=== PATIENT | female | born 1945 | race Caucasian/White ===

== ENCOUNTER 2016-09-01 09:07 | Emergency (ER) | payer OTHER ==
[~2016-09-01] VITALS: Ht 167.6 cm; Wt 73.0 kg
[~2016-09-01 09:07] MED LIST: ALPR-411 PO; INSDGI SC; MOME100A INH; NVLGI SC; OMEP20CA9 PO; salonpas TOP
[2016-09-01 09:09] VITALS: TEMP 36.6; Ht 167.6 cm; Wt 73.0 kg
[2016-09-01] MEDS ORDERED: SIMV40TA2 PO (09:39)
[2016-09-01] MEDS ORDERED: ESCI10TA17 PO (09:40)
[2016-09-01] MEDS ORDERED: ACET-1256 PO (09:42)
[2016-09-01] MEDS ORDERED: NVLGIPEN SC (09:46)
[2016-09-01] MEDS ORDERED: INSDGIPEN SC ×2 (09:46)
--- NOTE | 2016-09-01 10:21 | DIAGNOSTIC IMAGING REPORT ---
RIGHT ANKLE 3 VIEWS CLINICAL HISTORY: Right ankle pain. FINDINGS: 3 views of the right ankle are obtained. No prior studies are available for comparison at the time of dictation. The skeletal structures are osteopenic. No fracture is seen. The ankle mortise is intact. There are large dorsal and plantar calcaneal enthesophytes. No joint effusion is identified. There is no soft tissue swelling. Mild nonspecific edema is suggested within Kager's fat pad. IMPRESSION: 1. Osteopenia with no acute bony or malleable identified. 2. Nonspecific edema is suggested within Kager's fat pad. Clinical correlation will be required Electronically signed by: Piyush Fox M.D. 09/01/2016 10:20 AM Dictated Date/Time: 09/01/2016 10:18 AM
--- NOTE | 2016-09-01 10:24 | DIAGNOSTIC IMAGING REPORT ---
RIGHT FOOT MIN 3 VIEWS ROUTINE CLINICAL HISTORY: right lat foot and ankle pain Right pain COMPARISON: None. DISCUSSION: The bones and joint spaces appear intact. There is no evidence of fracture, dislocation or bony disease. Mild degenerative change of the articular services. Small heel spur. IMPRESSION: No acute process. Mild degenerative change. Small heel spur. Electronically signed by: Jamison aVlencia M.D. 09/01/2016 10:23 AM Dictated Date/Time: 09/01/2016 10:22 AM
[2016-09-01 11:25] VITALS: BP 154/77; PULSE 71; O2SAT 97
--- NOTE | 2016-09-01 18:31 | EMERGENCY ROOM VISIT NOTE ---
History Report prepared by Brandon: Barbara Romeo Under the Supervision of: Dr. Chepe Hutchins D.O. First contact with patient: 09:18 Chief Complaint: FOOT PAIN Stated Complaint: RIGHT OUTER FOOT/POSSIBLE FRACTURE History of Present Illness The patient is a 70 year old female who presents to the Emergency Room with complaints of persistent right foot pain that began last Thursday. She currently rates her discomfort as a 6/10 in severity. The patient states that last Thursday she was shoveling snow when she slipped and fell backwards onto her right side. She states that the her foot hurts on the outside of her ankle. The patient denies hitting or head or any loss of consciousness. She states that she has a large bruise to her right hip from the fall, but denies any pain to the area. Source of History: patient Onset: last Thursday Position: foot (right) Symptom Intensity: 6/10 Timing: other (persistent) Associated Symptoms: No LOC Note: Associated Symptoms: fall, bruise to right hip. Review of Systems See HPI for pertinent positives & negatives. A total of 10 systems reviewed and were otherwise negative. Past Medical & Surgical Medical Problems: (1) Diabetes (2) PNA (pneumonia) Family History Diabetes mellitus FH: gallbladder disease FH: heart disease FH: lung disease FHx: cancer Hypertension Social History Smoking Status: Current Every Day Smoker Alcohol Use: none Drug Use: none Marital Status: Housing Status: lives with significant other Occupation Status: retired Current/Historical Medications Scheduled Acetaminophen (Tylenol), 500 MG PO DAILY Escitalopram (Lexapro), 10 MG PO QAM Insulin Aspart (Novolog Flexpen), 5 SC DAILY Insulin Glargine (Lantus Solostar), 10 SC QAM Insulin Glargine (Lantus Solostar), 20 SC QPM Mometasone Furoate-Formoterol (Dulera 100/5 Mcg), 2 PUFFS INH BID Omeprazole (Prilosec), 1 CAP PO DAILY Simvastatin (Zocor), 40 MG PO DAILY Scheduled PRN Alprazolam (Xanax), 0.25 MG PO HS PRN for Anxiety/Agitation Allergies Coded Allergies: No Known Allergies (Verified , 09/01/16) Physical Exam Vital Signs Date Time Temp Pulse Resp B/P Pulse Ox O2 Delivery O2 Flow Rate FiO2 09/01/16 11:25 71 20 154/77 97 09/01/16 09:09 36.6 70 18 173/70 99 Room Air Physical Exam GENERAL: Sitting up in wheelchair, alert, well appearing, well nourished, no distress, non-toxic HEAD: Normocephalic, atraumatic. EYE EXAM: normal conjunctiva, PERRL and EOM's grossly intact OROPHARYNX: no exudate, no erythema, lips, buccal mucosa, and tongue normal and mucous membranes are moist NECK: supple, no nuchal rigidity, no adenopathy, non-tender LUNGS: Clear to auscultation. Normal chest wall mechanics HEART: no murmurs, S1 normal and S2 normal ABDOMEN: abdomen soft, non-tender, normo-active bowel sounds, no masses, no rebound or guarding. UPPER EXTREMITIES: upper extremities are grossly normal. LOWER EXTREMITIES: Right lower extremity bruising on right lateral malleolus with minimal tenderness with bruising and mild swelling through base of 5th metatarsal distally and tracking into the 4th metatarsal. DP 2/4. Gross sensations are intact and skin is intact. Achilles intact, able to invert and milad without difficulty. NEURO EXAM: Normal sensorium. Medical Decision & Procedures ER Provider Diagnostic Interpretation: Xray results per the radiologist and my interpretation. Other results have been interpreted by the radiologist and reviewed by me. RIGHT FOOT MIN 3 VIEWS ROUTINE CLINICAL HISTORY: right lat foot and ankle pain Right pain COMPARISON: None. DISCUSSION: The bones and joint spaces appear intact. There is no evidence of fracture, dislocation or bony disease. Mild degenerative change of the articular services. Small heel spur. IMPRESSION: No acute process. Mild degenerative change. Small heel spur. Electronically signed by: Jamison Valencia M.D. 09/01/2016 10:23 AM Dictated Date/Time: 09/01/2016 10:22 AM RIGHT ANKLE 3 VIEWS CLINICAL HISTORY: Right ankle pain. FINDINGS: 3 views of the right ankle are obtained. No prior studies are available for comparison at the time of dictation. The skeletal structures are osteopenic. No fracture is seen. The ankle mortise is intact. There are large dorsal and plantar calcaneal enthesophytes. No joint effusion is identified. There is no soft tissue swelling. Mild nonspecific edema is suggested within Kager's fat pad. IMPRESSION: 1. Osteopenia with no acute bony or malleable identified. 2. Nonspecific edema is suggested within Kager's fat pad. Clinical correlation will be required Electronically signed by: Piyush Fox M.D. 09/01/2016 10:20 AM Dictated Date/Time: 09/01/2016 10:18 AM ED Course ED COURSE: Vital signs were reviewed and showed hypertensive The patients medical record was reviewed The above diagnostic studies were performed and reviewed. ED treatments and interventions as stated above. 0923: The patient was evaluated in room A3. A complete history and physical examination was performed. 1100: Upon reevaluation, the patient is resting comfortably.I discussed my findings with the patient and she understands and agrees with the treatment plan. Based on the patients age, coexisting illnesses, exam and lab findings the decision to treat as an outpatient was made. The patient remained stable while under my care. The patient appeared well at the time of discharge. Medical Decision Differential diagnoses include major intracranial, cervical, spinal, thoracic, abdominal, pelvic and neurologic injury. Fracture, contusion, sprain, strain, laceration, abrasions included as well. Patient is a 70-year-old female who presents the ER for right ankle pain. It's on the lateral aspect and tracks down to the base of her foot. She is been walking on this for the past several days. This occurred about a week ago. She is able to invert knee. And Achilles is intact. Gross sensation is intact. X-ray show no acute fractures. Patient family were updated at bedside per she is placed in air splint discharged follow-up with PCP in next 3-5 days if she continues to have pain. Motrin Tylenol as needed for pain. Discussed with Pt concerning signs and symptoms to watch out for. Pt was instructed to follow up with their PCP and discussed with the patient their option to return to the ED at anytime for persistent or worsening symptoms. The appropriate anticipatory guidance and out-patient management, including indications for return to the emergency department, were explained at length to the patient and understood. Impression Primary Impression: Ankle pain Scribe Attestation The scribe's documentation has been prepared under my direction and personally reviewed by me in its entirety. I confirm that the note above accurately reflects all work, treatment, procedures, and medical decision making performed by me. Departure Information Dispostion Home / Self-Care Referrals Sanchez Barroso M.D. (PCP) Forms HOME CARE DOCUMENTATION FORM, IMPORTANT VISIT INFORMATION Patient Instructions Ankle Sprain, My [facility] Additional Instructions Please follow up with your primary care doctor with in the next 24 hours. Any worsening of your symptoms, please return to the ED immediately. This includes worsening pain, increased swelling, weakness or numbness in your leg, or any other concerning signs or symptoms from your standpoint. If he continues to have pain for the next 3-5 days she will need repeat x-rays. Problem Qualifiers Primary Impression: Ankle pain Laterality: unspecified laterality Chronicity: acute Qualified Codes: M25.579 - Pain in unspecified ankle and joints of unspecified foot
[2016-11-23] MEDS ORDERED: PLV75 PO (13:38)
[2016-11-23] MEDS ORDERED: SPRIN INH (13:38)
[2016-11-23] MEDS ORDERED: ASPEC81 PO (13:38)
[2016-11-23] MEDS ORDERED: LPR25 PO (13:38)
[2016-11-23] MEDS ORDERED: SODI650T9 PO (13:38)
[2016-11-23] MEDS ORDERED: FURO-85 PO (13:38)
[2016-11-23] MEDS ORDERED: LVQ500 PO (13:38)
[2016-11-23] MEDS ORDERED: LPT40 PO (13:38)
[2016-11-23] MEDS ORDERED: NTRGSL4 SL (13:49)
[2017-02-19] MEDS ORDERED: PRLSR20 PO (07:17)
[2017-02-19] MEDS ORDERED: ATOR-24 PO (07:17)
[2017-02-19] MEDS ORDERED: POTA20TA16 PO (07:17)
[2017-02-19] MEDS ORDERED: GABA-113 PO (07:17)
[2017-02-19] MEDS ORDERED: FERR18TA PO (07:17)
[2017-02-19] MEDS ORDERED: WARF5TAB7 PO (07:17)
[2017-02-19] MEDS ORDERED: FRS/40 PO ×2 (07:17→07:52)
[2017-03-12] MEDS ORDERED: FURO-85 PO (06:51)
[2017-03-12] MEDS ORDERED: CRD200 PO (06:51)
[2017-03-12] MEDS ORDERED: INSU1INJ2 (06:51)
[2017-03-12] MEDS ORDERED: PLAVIX75 PO (06:51)
[2017-03-12] MEDS ORDERED: MOME100A INH (06:51)
[2017-03-12] MEDS ORDERED: METO50TA16 PO (06:51)
== END 2016-09-01 11:32 | disposition home or self-care (01) ==
LOC: C.EDB 09:09 → C.EDA 11:32
DX: M25.571 Pain in right ankle and joints of right foot (principal); E11.9 Type 2 diabetes mellitus without complications; F17.200 Nicotine dependence, unspecified, uncomplicated; Z79.899 Other long term (current) drug therapy; Z79.4 Long term (current) use of insulin; Z83.3 Family history of diabetes mellitus; Z82.49 Family history of ischemic heart disease and other diseases of the circulatory system; Z83.79 Family history of other diseases of the digestive system; W00.0XXA Fall on same level due to ice and snow, initial encounter; Y93.H1 Activity, digging, shoveling and raking; Y99.8 Other external cause status

== ENCOUNTER 2016-11-17 16:44 | Inpatient (IN) | payer OTHER ==
[~2016-11-17] VITALS: Ht 167.6 cm; Wt 74.2 kg
[2016-11-17] VITALS (7 sets, daily range): BP systolic 107–197; BP diastolic 82–95; PULSE 93–108; TEMP 36.7; O2SAT 93–100; BMI 27.4
[~2016-11-17 16:44] MED LIST changes: +ACET-1256 PO; +ESCI10TA17 PO; -INSDGI SC; +INSDGIPEN SC; -NVLGI SC; +NVLGIPEN SC; +SIMV40TA2 PO; -salonpas TOP
[2016-11-17 17:12] LABS: BASO % 0.1 %; BASO ABS # 0.01 K/uL (0-0.2); COMPLETE YES; EOS % 0.1 %; HEMATOCRIT 34.3 % (37-47); IG% 0.3 %; LYMPH % 6.6 %; LYMPH ABS # 0.79 K/uL (1.2-3.4); MEAN CELL VOLUME 83.1 fL (80-100); MEAN CORPUSCULAR HEMOGLOBIN 27.4 pg (25-34); MEAN CORPUSCULAR HGB CONC 32.9 g/dl (32-36); MEAN PLATELET VOLUME 10.7 fL (7.4-10.4); MONO % 5.9 %; PLATELET COUNT 314 K/uL (130-400); RED BLOOD COUNT 4.13 M/uL (4.2-5.4); WHITE BLOOD COUNT 11.95 K/uL (4.8-10.8)
[2016-11-17] MEDS ORDERED: GABA-113 PO (17:16)
[2016-11-17] MEDS ORDERED: ASPIRIN 81 MG CHEW PO STA (17:16)
[2016-11-17] MEDS ORDERED: SODIUM CHLORIDE 0.9% 500ML 500 ML IV STA (17:16)
--- NOTE | 2016-11-17 17:22 | DIAGNOSTIC IMAGING REPORT ---
CHEST ONE VIEW PORTABLE CLINICAL HISTORY: Chest Pain COMPARISON STUDY: 05/14/2015 FINDINGS: The heart is normal in size. There is no failure. There is no lobar consolidation. There is a lateral shouldering of the right hemidiaphragm. A small subpulmonic pleural effusion cannot be excluded. Opacities at the level the left cardiophrenic angle are likely atelectatic.[ IMPRESSION: 1. Opacities at the level the left cardiophrenic angle, likely atelectatic 2. No evidence of failure. No evidence of lobar consolidation Electronically signed by: Elieser Cha M.D. 11/17/2016 5:20 PM Dictated Date/Time: 11/17/2016 5:19 PM
[2016-11-17] MEDS ORDERED: NITROGLYCERIN 0.4 MG SL PER TAB CHARGE SL PRN (17:30)
[2016-11-17 17:31] LABS: CREATININE 2.8 mg/dl (0.60-1.20); POTASSIUM 3.6 mmol/L (3.5-5.1)
[2016-11-17 17:44] LABS: BETA-HYDROXYBUTYRATE 0.56 mg/dL (0.2-2.81); CKMB/CK RATIO 3.2 (0-3.0)
[2016-11-17] MEDS: FENTANYL CITRATE INJ 50 MCG/1 ML 2 ML VIAL IV STA (17:48)
[2016-11-17] MEDS: HEPARIN SOD (PORCINE) 1000 UNIT/ML 10 ML VIAL ONE (18:21)
[2016-11-17] MEDS ORDERED: NiCARDipine HCL INJ 2.5 MG/ML 10 ML AMP ONE (18:21)
[2016-11-17] MEDS ORDERED: NITROGLYCERIN/D5W 100MCG/ML 20ML SYR ONE (18:21)
[2016-11-17] MEDS ORDERED: MIDAZOLAM HCL 1 MG/ML 2ML VIAL ONE (18:21)
--- NOTE | 2016-11-17 18:28 | Procedure Note ---
Pre-Mod Sedation Assessment General Date of Moderate Sedation: Nov 17, 2016. Vital Signs: Vital Signs Past 12 Hours Date Time Temp Pulse Resp B/P Pulse Ox O2 Delivery O2 Flow Rate FiO2 11/17/16 18:07 104 18 165/93 95 Room Air 11/17/16 17:47 97 18 99/61 97 Room Air 11/17/16 17:07 101 11/17/16 17:04 96 Room Air 11/17/16 16:52 Room Air 11/17/16 16:47 36.6 108 18 171/79 99 Room Air Review Cardiovascular: regular rate, rhythm, no edema, no JVD Abdomen: normal bowel sounds, non tender Lungs: chest non-tender, lungs clear Pre-Sedation Airway Assessment Oral Cavity: WNL Able to Visualize Vocal Cords: No Short Thick Neck: No Hx of Sleep Apnea: No Smoking Status: Current Every Day Smoker Mallampati Classification: Class III ASA Classification: Class III Procedure Planning Contraindications-for Mod Sed: None Yes Notes The planned sedation has been discussed with the patient and consent obtained. I have identified the patient, determined the appropriateness of sedation and have assessed the patient immediately prior to the procedure. All medicine(s) and interventions are by my order.
[2016-11-17] MEDS ORDERED: TICAGRELOR 90 MG TAB PO ONE (20:06)
[2016-11-17] MEDS ORDERED: HEPARIN 25000 UNIT/500 ML D5W ONE (20:06)
[2016-11-17] MEDS ORDERED: DEXTROSE 50% 50 ML SYR IV PRN (20:15)
[2016-11-17] MEDS ORDERED: ONDANSETRON INJ 2 MG/ML 2 ML VIAL IV PRN (20:15)
[2016-11-17] MEDS ORDERED: GLUCOSE 10 TABS/TUBE PO PRN (20:15)
[2016-11-17] MEDS ORDERED: SODIUM CHLORIDE 0.9% 1000ML 1,000 ML IV SCH (20:15)
[2016-11-17] MEDS ORDERED: ALPRAZOLAM 0.5 MG TAB PO PRN (20:15)
[2016-11-17] MEDS ORDERED: GLUCAGON FOR INJ 1 MG VIAL SQ PRN (20:15)
[2016-11-17] MEDS ORDERED: GLUCOSE 40% GEL 15 GM TUBE PO PRN (20:15)
[2016-11-17] MEDS ORDERED: ACETAMINOPHEN 325 MG TAB PO PRN (20:15)
--- NOTE | 2016-11-17 20:30 | Procedure Note ---
Post-Mod Sedation Assessment General Date of Moderate Sedation Nov 17, 2016. Vital Signs: Vital Signs Past 12 Hours Date Time Temp Pulse Resp B/P Pulse Ox O2 Delivery O2 Flow Rate FiO2 11/17/16 18:07 104 18 165/93 95 Room Air 11/17/16 17:47 97 18 99/61 97 Room Air 11/17/16 17:07 101 11/17/16 17:04 96 Room Air 11/17/16 16:52 Room Air 11/17/16 16:47 36.6 108 18 171/79 99 Room Air Review - Discharge Criteria Vital Signs Stable: Yes Alert/Oriented/Conversant: Yes Returned to Baseline Mental St: Yes Nausea Absent/Minimal: Yes Pain/Discomfort/Absent/Minimal: Yes Normal/Baseline Respirations: Yes Active Bleeding?: No Pt Received D/C Instructions: No Prescriptions Given: None Specific Proced. D/C Criteria Distal Pulses Present (Cardiac: Yes Groin site assessed-Card Cath: N/A Voided Prior To Discharge: N/A Discharged Patients Adult Escort/Transportation: Yes
--- NOTE | 2016-11-17 20:52 | Cardiac Catheterization ---
Procedure Note Procedure Date Nov 17, 2016. Pre-Procedure Diagnosis Non STEMI AUC Score 8 Post-Procedure Diagnosis Severe CAD, Successful PCI, Normal Intracardiac Pressures Procedure(s) Performed Coronary Angiography, Left Heart Cath, Drug Eluting Stent Client Experience Specialist Dr. Childers Obstetrician(s) Hazel Estimated Blood Loss 22 Medication(s) Fentanyl, Heparin, Nicardipine, Nitroglycerin, Versed, Lidocaine 1% Ticagrelor Summary of Findings Indication: High risk NSTEMI/Heart Alert Access: 6Fr Slender Right Radial Artery Catheters: Dale, EBU 3.5 Findings: LM - Luminal irregularities LAD - Proximal to mid 50-60% diffuse stenosis, luminal irregularities in mid and distal segments before wrapping around apex. 99% 1st diagonal ostial stenosis with suggestion of thrombus (suspect culprit lesion) Circumflex - Moderate caliber, co-dominant vessel, focal 95% stenosis at take- off of moderate OM1, distal segment with diffuse 70-80% stenosis prior to distal L-PLB. OM1 with 50 ostial stenosis. RCA - Small, co-dominant, 20-30% proximal stenosis, PDA very small vessel with luminal irregularities. LVEDP - 15 -- PCI -- Antithrombotic therapy: Heparin, Ticagrelor Procedure: Left main cannulated with EBU 3.5 guide BMW wire passed across lesion into distal circumflex/L-PLB P[place]ater passed into OM1 Distal, mid circumflex lesion predilated with 2.0 compliant balloon With predilation dissection noted in distal vessel with resultant chest pain, inferior ST elevations 2.25 x 22 Resolute ELAINE placed into distal circumflex 2.5 x 30 Resolute ELAINE placed in mid-segment across OM1 take-off and overlapping distally with prior stent Stent post-dilated with stent balloon 2.75 noncompliant balloon Very distal circumflex, PLB gently ballooned with 2.0 balloon. IC vasodilators administered for spasm Post procedure LAURA 3 flow, stent well expanded with minimal residual stenosis and no apparent residual dissection or cardiac complications. Arterial Closure: TR Band Summary: 1. High-risk NSTEMI 2. Multivessel coronary artery disease - 95% mid circumflex, 70-80% distal circumflex, 50% ostial OM1 - 50-60% proximal-mid LAD - 99% very small 1st diagonal 3. Normal intracardiac filling pressure 4. 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 Resume heparin infusion for (?acute) small 1st diagonal after TR band off/ hemostasis Continue IV fluids overnight Plan to transition to Clopidogrel prior to discharge Continue dual-antiplatelet therapy with Clopidogrel/ASA for 1 year Trend troponins until peak, Check Echo Uptitrate beta-duke as able High-dose statin Consult cardiac Rehab 1st diagonal is too small for PCI -- medical management Plan for further ischemic testing of LAD -- likely outpatient stress Hemodynamics Rest Ao: 140/63/99 Final Ao: 114/57/84 LV: 139/5/15 Recommendations PCI without planned CABG Specimens None Radiation Exposure (mGy) 3518 Contrast (mls) 125 Visi Fluids (cc crystalloids) 179 Drains none Anesthesia moderate (start 18:34 - 19:55) Procedural Complication(s) None Disposition PCU ACC Data Cardiac Status Clinical evaluation leading to the procedure CAD Presntation: Non STEMI Anginal Classification: CCS IV Heart Failure: Yes, NYHA Class: CCS II Cardiogenic Shock w/in 24Hrs: No Cardiac Arrest w/in 24Hrs: No Imaging studies past 6 months: No Stress studies past 6 months: No Standard Exercise Stress Test: No Stress Echocardiogram: No Stress Testing w/SPECT MPI: No Cardiac CTA: No Coronary Anatomy Dominant: Co-dominant Left Main (% Stenosis): Normal LAD (% Stenosis): Proximal (50-60) D1 (% Stenosis): Ostial (99) Circumflex (% Stenosis): Mid (95), Distal (70-80) RCA (% Stenosis): Proximal (30) Diagnostic Physician's Name: Sonny Childers MD Status: Emergency Closure Device Percutaneous Entry Location: Radial Closure Device: Radial Band Recommendations: PCI without planned CABG PCI Indication: PCI for high risk Non-STEMI Lesion Segment Name: Mid Circumflex Stenosis Prior to Rx (%): 95 Chronic Total Occlusion: No IVUS: No FFR: No Pre-Procedure LAURA Flow: 3 Previously Treated Lesion: No Lesion Complexity: Non-High/Non-C Lesion Length (mm): 30 Thrombus Present: No Bifurcation Lesion: Yes Guidewire Across Lesion: Yes Guidewire: Stenosis Post-Procedure (%): 0 Post-Procedure LAURA Flow: 3 Device(s) Deployed: Yes Intraprocedure Events Significant Dissection: No Perforation: No
[2016-11-17] MEDS ORDERED: HEPARIN 25,000 UNIT/500ML D5W 500 ML IV PRN (21:00)
[2016-11-17] MEDS ORDERED: LEVALBUTEROL 0.63MG/3 ML NEB INH STA (21:11)
[2016-11-17] MEDS: GABAPENTIN 300 MG CAP PO SCH (21:58)
[2016-11-17] MEDS: METOPROLOL TARTRATE 25 MG TAB PO SCH (21:58)
[2016-11-17] MEDS: ESCITALOPRAM OXALATE 10 MG TAB PO SCH (21:59)
--- NOTE | 2016-11-17 22:08 | EMERGENCY ROOM VISIT NOTE ---
History Report prepared by Brandon: Mynor Raya Under the Supervision of: Dr. Chepe Hutchins D.O. First contact with patient: 17:05 Chief Complaint: CARDIAC ASSESSMENT Stated Complaint: SOB;CHEST PAIN Nursing Triage Summary: Chest pain and SOB since 11/09 History of Present Illness The patient is a 71 year old female who presents to the Emergency Room with complaints of waxing and waning diffuse chest pain starting about a week ago and worsening this morning. The pain radiates through her back and down her arms bilaterally. She describes it as "someone is stepping" on her chest. She reports worsening pain with breathing, movement, twisting, and lying down flat. She reports shortness of breath when the pain becomes severe. She had one vomiting episode yesterday due to the severity of the pain. She applied a heating pad to her chest with some relief. She denies any history of heart disease, aortic problems, and blood clots. She has been having a runny nose for the past few days. Pt denies headache, change in vision, fevers, cough, diarrhea , pain with urination, and melena. Source of History: patient Onset: about a week ago Position: chest (diffuse) Timing: waxes/wanes, worsening Modifying Factors (Worsening): breathing, movement, other (twisting, lying down flat) Modifying Factors (Relieving): heat (without relief) Associated Symptoms: + SOB, + vomiting, No cough, No diarrhea, No headache Review of Systems See HPI for pertinent positives & negatives. A total of 10 systems reviewed and were otherwise negative. Past Medical & Surgical Medical Problems: (1) AMI (acute myocardial infarction) (2) Diabetes (3) PNA (pneumonia) Family History Diabetes mellitus FH: gallbladder disease FH: heart disease FH: lung disease FHx: cancer Hypertension Social History Smoking Status: Current Every Day Smoker Alcohol Use: none Drug Use: none Marital Status: Housing Status: lives with significant other Occupation Status: retired Current/Historical Medications Scheduled Escitalopram (Lexapro), 10 MG PO QPM Gabapentin (Neurontin), 300 MG PO HS Insulin Aspart (Novolog Flexpen), 10 UNITS SC AFTERNOON Insulin Glargine (Lantus Solostar), 10 UNITS SC QAM Insulin Glargine (Lantus Solostar), 20 UNITS SC QPM Mometasone Furoate-Formoterol (Dulera 100/5 Mcg), 2 PUFFS INH BID Omeprazole (Prilosec), 20 MG PO BID Scheduled PRN Acetaminophen (Tylenol), 500 MG PO DAILY PRN for Pain Alprazolam (Xanax), 0.25 MG PO HS PRN for Anxiety/Agitation Allergies Coded Allergies: No Known Allergies (Verified , 11/17/16) Physical Exam Vital Signs Date Time Temp Pulse Resp B/P Pulse Ox O2 Delivery O2 Flow Rate FiO2 11/17/16 20:10 89 16 140/83 96 Room Air 11/17/16 20:05 87 16 138/82 96 Room Air 11/17/16 20:00 85 16 135/80 96 Room Air 11/17/16 19:55 87 16 137/87 96 Room Air 11/17/16 18:07 104 18 165/93 95 Room Air 11/17/16 17:47 97 18 99/61 97 Room Air 11/17/16 17:07 101 11/17/16 17:04 96 Room Air 11/17/16 16:52 Room Air 11/17/16 16:47 36.6 108 18 171/79 99 Room Air Physical Exam GENERAL: Ill appearing, sitting up in bed, uncomfortable. EYE EXAM: normal conjunctiva OROPHARYNX: no exudate, no erythema, lips, buccal mucosa, and tongue normal and mucous membranes are moist NECK: supple, no nuchal rigidity, no adenopathy, non-tender LUNGS: Clear to auscultation. Normal chest wall mechanics HEART: Systolic ejection murmur ABDOMEN: abdomen soft, non-tender, normo-active bowel sounds, no masses, no rebound or guarding. BACK: Reproducible tenderness in umbilical left scapula. SKIN: no rashes and no bruising UPPER EXTREMITIES: upper extremities are grossly normal. Radial pulses equal bilaterally. LOWER EXTREMITIES: No pitting edema. Calves equal bilaterally. NEURO EXAM: Normal sensorium, cranial nerves II-XII grossly intact, normal speech, no gross weakness of arms, no gross weakness of legs. Medical Decision & Procedures ER Provider Diagnostic Interpretation: Xray results as interpreted by me and the radiologist: CHEST ONE VIEW PORTABLE CLINICAL HISTORY: Chest Pain COMPARISON STUDY: 05/14/2015 FINDINGS: The heart is normal in size. There is no failure. There is no lobar consolidation. There is a lateral shouldering of the right hemidiaphragm. A small subpulmonic pleural effusion cannot be excluded. Opacities at the level the left cardiophrenic angle are likely atelectatic.[ IMPRESSION: 1. Opacities at the level the left cardiophrenic angle, likely atelectatic 2. No evidence of failure. No evidence of lobar consolidation Electronically signed by: Elieser Cha M.D. 11/17/2016 5:20 PM Dictated Date/Time: 11/17/2016 5:19 PM Laboratory Results 11/17/16 17:00 Red Blood Count 4.13, Mean Corpuscular Volume 83.1, Mean Corpuscular Hemoglobin 27.4, Mean Corpuscular Hemoglobin Concent 32.9, Mean Platelet Volume 10.7, Neutrophils (%) (Auto) 87.0, Lymphocytes (%) (Auto) 6.6, Monocytes (%) (Auto) 5.9, Eosinophils (%) (Auto) 0.1, Basophils (%) (Auto) 0.1, Neutrophils # (Auto) 10.40, Lymphocytes # (Auto) 0.79, Monocytes # (Auto) 0.70, Eosinophils # (Auto) 0.01, Basophils # (Auto) 0.01 11/17/16 17:00 Test 11/17/16 17:00 11/17/16 19:41 White Blood Count 11.95 K/uL (4.8-10.8) Red Blood Count 4.13 M/uL (4.2-5.4) Hemoglobin 11.3 g/dL (12.0-16.0) Hematocrit 34.3 % (37-47) Mean Corpuscular Volume 83.1 fL (80-100) Mean Corpuscular Hemoglobin 27.4 pg (25-34) Mean Corpuscular Hemoglobin Concent 32.9 g/dl (32-36) Platelet Count 314 K/uL (130-400) Mean Platelet Volume 10.7 fL (7.4-10.4) Neutrophils (%) (Auto) 87.0 % Lymphocytes (%) (Auto) 6.6 % Monocytes (%) (Auto) 5.9 % Eosinophils (%) (Auto) 0.1 % Basophils (%) (Auto) 0.1 % Neutrophils # (Auto) 10.40 K/uL (1.4-6.5) Lymphocytes # (Auto) 0.79 K/uL (1.2-3.4) Monocytes # (Auto) 0.70 K/uL (0.11-0.59) Eosinophils # (Auto) 0.01 K/uL (0-0.5) Basophils # (Auto) 0.01 K/uL (0-0.2) RDW Standard Deviation 44.0 fL (36.4-46.3) RDW Coefficient of Variation 14.5 % (11.5-14.5) Immature Granulocyte % (Auto) 0.3 % Immature Granulocyte # (Auto) 0.04 K/uL (0.00-0.02) Anion Gap 12.0 mmol/L (3-11) Est Creatinine Clear Calc Drug Dose 18.7 ml/min Estimated GFR () 18.8 Estimated GFR (Non- 16.2 BUN/Creatinine Ratio 9.0 (10-20) Calcium Level 9.0 mg/dl (8.5-10.1) Total Creatine Kinase 244 U/L (26-192) Creatine Kinase MB 7.8 ng/ml (0.5-3.6) Creatine Kinase MB Ratio 3.2 (0-3.0) Beta-Hydroxybutyric Acid 0.56 mg/dL (0.2-2.81) Kaolin Activated Coagulation Time 260 SECONDS (94-140) Laboratory results per my review. Medications Administered Medications (Trade) Dose Ordered Sig/Dajuan Route Start Time Stop Time Status Last Admin Dose Admin Sodium Chloride (Nss 500ml) 500 ml @ 999 mls/hr Q31M STAT IV 11/17/16 17:16 11/17/16 17:46 DC 11/17/16 17:29 999 MLS/HR Nitroglycerin (Nitrostat Tab) 0.4 mg Q5M PRN SL 11/17/16 17:30 11/17/16 20:45 DC 11/17/16 17:31 0.4 MG Aspirin (Aspirin Chew) 324 mg NOW STAT PO 11/17/16 17:16 11/17/16 17:18 DC 11/17/16 17:30 324 MG Fentanyl Citrate (Fentanyl Inj) 50 mcg NOW STAT IV 11/17/16 17:48 11/17/16 17:49 DC 11/17/16 17:48 50 MCG Heparin Sodium (Porcine) (Heparin Iv Bolus) 10,000 unit STK-MED ONCE .ROUTE 11/17/16 18:21 11/17/16 18:22 DC 11/17/16 18:21 11,000 UNIT Midazolam HCl (Versed Inj) 2 mg STK-MED ONCE .ROUTE 11/17/16 18:21 11/17/16 18:22 DC 11/17/16 18:21 2 MG Ticagrelor (Brilinta Cap) 180 mg STK-MED ONCE PO 11/17/16 20:06 11/17/16 20:07 DC 11/17/16 20:06 180 MG Heparin Sodium/ Dextrose (Heparin 25,000 Unit/500ml D5W) 25,000 unit STK-MED ONCE .ROUTE 11/17/16 20:06 11/17/16 20:07 DC 11/17/16 20:06 25,000 UNIT ECG Indication: chest pain Rate (beats per minute): 105 Rhythm: sinus tachycardia Findings: Q waves (Inferior), ST depression (Anterior and septal) Change: First repeat EKG showed sinus tachycardia, 100 beats per minute, normal axis, ST depression in anterior leads. Second repeat EKG showed sinus tachycardia, 108 beats per minute, diffuse St depressions in septal, anterior, and lateral leads, STEMI. Third repeat EKG showed significant improvement of ST depressions in septal and anterior leads, v1 and v6 posterior leads without elevation. ED Course ED COURSE: Vital signs were reviewed and showed hypertensive and tachycardic The patients medical record was reviewed The above diagnostic studies were performed and reviewed. ED treatments and interventions as stated above. 1705: The patient was evaluated in room C12B. A complete history and physical examination was performed. 1756: The patient's chest pain has slightly improved. 1800: I discussed the patient's case with Dr. Childers, psychological aide with [facility]. He is at bedside. The patient's pain is improving. She will be taken to the Lawn Service Worker. 1810: I discussed the patient's case with Dr. Diaz, from [facility]. Upon reevaluation, the patient is doing better.I discussed my findings with the patient and she understands and agrees with the treatment plan. Based on the patients age, coexisting illnesses, exam and lab findings the decision to treat as an inpatient was made. The patient remained stable while under my care. The patient will be evaluated for further management. Medical Decision Differential diagnoses includes but is not limited to acute coronary syndrome, myocardial infarction, pericarditis, pulmonary embolus, aortic dissection, pneumonia, pneumothorax, musculoskeletal, shingles, esophageal. Patient is a 71-year-old female who presents the ER for midsternal chest pain radiating down the arms associated with shortness of breath. On exam she is tachycardic and in moderate distress. She was hypertensive. EKG was obtained and showed slight depressions in the anterior leads. Radial pulses were equal bilateral. Chest x-ray was unremarkable. She started complaining of severe worsening chest pain and repeat EKG showed diffuse ST depressions in the septal anterior and lateral leads. I was concerned for a posterior OR. Patient was given a liter of fluid at this time she became hypotensive with systolic pressures in the 90s. Heart alert called with these dynamic EKG changes. She was evaluated at bedside by cardiology. She was taken emergently to the Lawn Service Worker as her labs show an elevated troponin of 3 along with a slightly elevated creatinine at 2.8 off of the baseline of 2 and an elevated CK. Patient was updated at bedside and she was transferred emergently to the shift lab technician for a likely posterior STEMI. I was concerned for a possible dissection as well however with her creatinine I felt it was most beneficial for her to go emergently to the Lawn Service Worker where they could evaluated the aorta as well. Patient was given aspirin as well. Systolic pressures did improve prior to transfer to the catheterization lab. Consults Time Called: 1755 Consulting Physician: Dr. Childers, psychological aide with [facility] Returned Call: 1800 I discussed the patient's case with Dr. Childers, psychological aide with [facility]. He is at bedside. Impression Primary Impression: Acute coronary syndrome Additional Impressions: NSTEMI (non-ST elevated myocardial infarction) Acute electrocardiogram changes Critical Care I have personally spent greater than 35 minutes of critical care time in the direct management of this patient. This includes bedside care, interpretation of diagnostic studies, and testing, discussion with consultants, patient, and family members, and other required patient management activities. This 35 minutes is in excess of all separately billable procedures. Scribe Attestation The scribe's documentation has been prepared under my direction and personally reviewed by me in its entirety. I confirm that the note above accurately reflects all work, treatment, procedures, and medical decision making performed by me. Departure Information Dispostion Being Evaluated By Hospitalist Referrals Sanchez Barroso M.D. (PCP) Patient Instructions My [facility] Problem Qualifiers
[2016-11-17] MEDS ORDERED: BUDESONIDE/FORMOTEROL FUMARATE 80/4.5 60 PUFFS/INHALER INH SCH (22:30)
--- NOTE | 2016-11-17 22:53 | History and Physical ---
History & Physical Date & Time of Service: Nov 17, 2016 at 22:52 Chief Complaint: Ami (Acute Myocardial Infarction) Primary Care Physician: Sanchez Barroso M.D. History of Present Illness 71-year-old female with past medical history of insulin-dependent diabetes, diabetic neuropathy, diabetic nephropathy, hypertension, hyperlipidemia, peripheral artery disease, peptic ulcer disease presented to the ER with complaints of waxing and waning diffuse chest pain which started about a week ago but worsened this morning. While in the ER her pain worsened with acute changes in EKG from previously normal to deep ST depressions across precordial leads prompting a heart alert. She was immediately taken to cardiac catheterization which showed - 95% occlusion in mid circumflex, 70-80% distal circumflex, 50% ostial OM1, 50-60% proximal-mid LAD, 99% very small 1st diagonal. The patient was admitted to telemetry post catheterization. She has an extensive smoking history for about 30 years and continues to smoke. Patient was seen post catheterization. She denied any chest pain, palpitations , dizziness but complained about shortness of breath and audible wheezing as she had not taken her home inhaler today. Past Medical/Surgical History Medical Problems: (1) Diabetes Status: Chronic (2) PNA (pneumonia) Status: Resolved Family History Diabetes mellitus FH: gallbladder disease FH: heart disease FH: lung disease FHx: cancer Hypertension Social History Smoking Status: Current Every Day Smoker Drug Use: none Marital Status: Occupational Status: retired Immunizations History of Influenza Vaccine: Yes Influenza Vaccine Date: May 16, 2006 History of Tetanus Vaccine?: Yes History of Pneumococcal: No History of Hepatitis B Vaccine: No Multi-Drug Resistant Organisms History of MDRO: No Allergies Coded Allergies: No Known Allergies (Verified , 11/17/16) Home Medications Scheduled Aspirin (Aspirin EC Low Dose), 81 MG PO QAM Atorvastatin (Atorvastatin Calcium), 80 MG PO QAM Clopidogrel Bisulfate (Clopidogrel), 75 MG PO QAM Escitalopram (Lexapro), 10 MG PO QPM Furosemide (Lasix), 20 MG PO DAILY Gabapentin (Neurontin), 300 MG PO HS Insulin Aspart (Novolog Flexpen), 10 UNITS SC AFTERNOON Insulin Glargine (Lantus Solostar), 10 UNITS SC QAM Insulin Glargine (Lantus Solostar), 20 UNITS SC QPM Levofloxacin (Levofloxacin), 500 MG PO UD Metoprolol Tartrate (Lopressor), 25 MG PO Q12 Mometasone Furoate-Formoterol (Dulera 100/5 Mcg), 2 PUFFS INH BID Omeprazole (Prilosec), 20 MG PO BID Sodium Bicarbonate (Sodium Bicarbonate), 650 MG PO BID Tiotropium [place] (Spiriva Handihaler), 1 PUFF INH QAM Scheduled PRN Acetaminophen (Tylenol), 500 MG PO DAILY PRN for Pain Alprazolam (Xanax), 0.25 MG PO HS PRN for Anxiety/Agitation Nitroglycerin (Nitrostat), 1 TAB SL UD PRN for Chest Pain Physical Exam Vital Signs Date Time Temp Pulse Resp B/P Pulse Ox O2 Delivery O2 Flow Rate FiO2 11/17/16 21:33 105 18 94 Room Air 11/17/16 21:30 97 20 107/93 100 11/17/16 21:00 103 20 141/86 97 11/17/16 20:45 108 18 144/84 93 Room Air 11/17/16 20:25 95 20 141/82 93 Room Air 11/17/16 20:10 89 16 140/83 96 Room Air 11/17/16 20:05 87 16 138/82 96 Room Air 11/17/16 20:00 85 16 135/80 96 Room Air 11/17/16 19:55 87 16 137/87 96 Room Air 11/17/16 18:07 104 18 165/93 95 Room Air 11/17/16 17:47 97 18 99/61 97 Room Air 11/17/16 17:07 101 11/17/16 17:04 96 Room Air 11/17/16 16:52 Room Air 11/17/16 16:47 36.6 108 18 171/79 99 Room Air Diagnostics Laboratory Results Results Past 24 Hours Test 11/17/16 17:00 11/17/16 19:16 11/17/16 19:41 11/17/16 21:54 Range/Units White Blood Count 11.95 4.8-10.8 K/uL Red Blood Count 4.13 4.2-5.4 M/uL Hemoglobin 11.3 12.0-16.0 g/dL Hematocrit 34.3 37-47 % Mean Corpuscular Volume 83.1 80-100 fL Mean Corpuscular Hemoglobin 27.4 25-34 pg Mean Corpuscular Hemoglobin Concent 32.9 32-36 g/dl Platelet Count 314 130-400 K/uL Mean Platelet Volume 10.7 7.4-10.4 fL Neutrophils (%) (Auto) 87.0 % Lymphocytes (%) (Auto) 6.6 % Monocytes (%) (Auto) 5.9 % Eosinophils (%) (Auto) 0.1 % Basophils (%) (Auto) 0.1 % Neutrophils # (Auto) 10.40 1.4-6.5 K/uL Lymphocytes # (Auto) 0.79 1.2-3.4 K/uL Monocytes # (Auto) 0.70 0.11-0.59 K/uL Eosinophils # (Auto) 0.01 0-0.5 K/uL Basophils # (Auto) 0.01 0-0.2 K/uL RDW Standard Deviation 44.0 36.4-46.3 fL RDW Coefficient of Variation 14.5 11.5-14.5 % Immature Granulocyte % (Auto) 0.3 % Immature Granulocyte # (Auto) 0.04 0.00-0.02 K/uL Sodium Level 134 136-145 mmol/L Potassium Level 3.6 3.5-5.1 mmol/L Chloride Level 103 98-107 mmol/L Carbon Dioxide Level 19 21-32 mmol/L Anion Gap 12.0 3-11 mmol/L Blood Urea Nitrogen 25 7-18 mg/dl Creatinine 2.80 0.60-1.20 mg/dl Est Creatinine Clear Calc Drug Dose 18.7 ml/min Estimated GFR () 18.8 Estimated GFR (Non- 16.2 BUN/Creatinine Ratio 9.0 10-20 Random Glucose 316 70-99 mg/dl Calcium Level 9.0 8.5-10.1 mg/dl Total Creatine Kinase 244 26-192 U/L Creatine Kinase MB 7.8 0.5-3.6 ng/ml Creatine Kinase MB Ratio 3.2 0-3.0 Troponin I 3.540 0-0.045 ng/ml Beta-Hydroxybutyric Acid 0.56 0.2-2.81 mg/dL Kaolin Activated Coagulation Time 239 260 94-140 SECONDS Bedside Glucose 263 70-90 mg/dl Test 11/17/16 22:00 Range/Units Impression Assessment and Plan 71-year-old female with past medical history of insulin-dependent diabetes, diabetic neuropathy, diabetic nephropathy, hypertension, hyperlipidemia, peripheral artery disease, peptic ulcer disease presented to the ER with complaints of waxing and waning diffuse chest pain which started about a week ago but worsened this morning. She is status post cardiac catheterization with placement of 2 drug-eluting stents in the mid to distal circumflex. She had complained about shortness of breath after the procedure but hadn't taken her regular inhalers today. She received Xopenex considering elevated heart rate which somewhat helped with the dyspnea. However later tonight , shortness of breath worsened and her sats had dropped to 86-87 on 6 L of nasal cannula. Chest x-ray was obtained and she was given 40 mg of IV Lasix. NSTEMI status post cardiac catheterization with stent placement: - 95% mid circumflex, 70-80% distal circumflex, 50% ostial OM1 - 50-60% proximal-mid LAD - 99% very small 1st diagonal - Successful PCI of mid to distal circumflex with 2 overlapping drug-eluting stents (2.5 x 30, 2.25 x 22 Resolute) Per cardiology notes: - Loaded with Ticagrelor in the labor economist - Resume heparin infusion for (?acute) small 1st diagonal after TR band off/ hemostasis - Continue dual-antiplatelet therapy with Clopidogrel/ASA for 1 year - Trend troponins until peak, Check Echo - Beta blockers, statins added - Consult cardiac rehabilitation Dyspnea in the setting of COPD Could likely be from fluids postprocedure - Received IV Lasix 40 mg - Xopenex with Atrovent every 6 hours - Vancomycin and Zosyn added for possible pneumonia Insulin-dependent diabetes - Continue insulin sliding scale Diabetic neuropathy - Continue gabapentin Acute on chronic kidney disease: Baseline creatinine at 2.1-2.4 - Creatinine on arrival 2.8, was given fluids postprocedure - Recheck at midnight: 2.5 -Monitor creatinine Depression -Continue Lexapro Peptic ulcer disease: -Continue Protonix DVT prophylaxis: Heparin Disposition: Monitor in telemetry Advanced Directives Existing Living Will: Yes Existing Power of Net Repairer: Yes VTE Prophylaxis VTE Risk Assessment Done? Y/N: Yes Risk Level: Moderate Given or contraindicated: Other Anticoagulation (heparin) Resident Tracking Resident Involvement: Resident Care Provided Care Provided: Adult Hospital Medicine Assessment and Plan Attending Addendum: X I have physically seen and examined this patient, have directed their medical care, have supervised the medical residents activities, and agree with the H&P as noted above, with the following changes: NONE
[2016-11-17] MEDS ORDERED: FUROSEMIDE 40 MG/4 ML VIAL IV STA (23:57)
[2016-11-18] VITALS (15 sets, daily range): BP systolic 113–144; BP diastolic 66–86; PULSE 16–107; TEMP 36.5–37.3; O2SAT 94–100; Ht 167.6 cm; Wt 74.2 kg
[2016-11-18] MEDS ORDERED: DULERA - ORDER AWAITING ACTION SCH
[2016-11-18] MEDS ORDERED: VANCOMYCIN INJ 1,000 MG in SODIUM CHLORIDE 0.9% 250ML 250 ML IV STA (00:01)
[2016-11-18] MEDS ORDERED: PIPERACILLIN/TAZOBACTAM 4.5 GM/100ML D5W IV STA (00:01)
[2016-11-18] MEDS ORDERED: FUROSEMIDE 40 MG/4 ML VIAL ONE (00:03)
[2016-11-18] MEDS: LEVALBUTEROL 1.25MG/0.5ML NEB INH PRN (00:06)
[2016-11-18] MEDS: IPRATROPIUM BROMIDE NEB SOLN 0.02% 2.5 ML VIAL INH PRN (00:06)
[2016-11-18] MEDS: INSULIN ASPART 100 UNITS/ML 3 ML PEN SC SCH ×5 (00:06→20:40)
[2016-11-18] MEDS: INSULIN GLARGINE SOLOSTAR 100 UNITS/ML 3 ML PEN SC SCH ×2 (00:07→20:41)
[2016-11-18] MEDS ORDERED: VANCOMYCIN INJ 1,500 MG in SODIUM CHLORIDE 0.9% 500ML 500 ML IV STA (00:10)
[2016-11-18] MEDS ORDERED: PIPERACILL/TAZOBAC CONSULT ACTIVE PRN (00:30)
[2016-11-18] MEDS ORDERED: VANCOMYCIN CONSULT ACTIVE PRN (00:30)
[2016-11-18 01:00] LABS: BUN/CREATININE RATIO 9.4 (10-20); CALCIUM 8.8 mg/dl (8.5-10.1); CREATININE 2.5 mg/dl (0.60-1.20); POTASSIUM 3.8 mmol/L (3.5-5.1)
[2016-11-18 01:11] LABS: BETA-HYDROXYBUTYRATE 1.41 mg/dL (0.2-2.81)
--- NOTE | 2016-11-18 01:19 | CARDIOLOGY CONSULTATION ---
DATE OF CONSULTATION: 11/17/2016 CONSULTATION REQUESTED BY: Dr. Hutchins/Emergency Department. REASON FOR CONSULTATION: Chest pain/heart alert. HISTORY OF PRESENT ILLNESS: Ms. Chappell is a 71-year-old woman with a history of insulin dependent diabetes, hypertension, diabetic nephropathy with a baseline creatinine of 2.1-2.4 and peripheral artery disease who presented to the Emergency Department today with worsening chest pain over the last several hours. The patient reports intermittent chest pain off and on for the last 2 weeks. She is unable to give many details about this pain. She states, today the pain came, persisted, was getting worse and as a result presented to the Emergency Department. Upon presenting here, she endorsed initially moderate pain with systolic blood pressures into the 170s. Her pain then increased up to a 10/10 and with that her EKG changed from previously normal to normal sinus rhythm with deep ST depressions across the precordial leads. As a result, a heart alert was called. She was given sublingual nitroglycerin and IV fluids; with that her blood pressure came down and her chest pain improved somewhat at the time of interview to 4-5/10. She also endorses worsening shortness of breath over the same time period and at the time of interview, the patient was acutely dyspneic. PAST MEDICAL HISTORY: 1. Type 2 diabetes, insulin-dependent, complicated by diabetic neuropathy and nephropathy. 2. Chronic renal insufficiency, baseline creatinine of 2.1 and 2.4, followed by Dr. Oliver. 3. Hypertension. 4. Hyperlipidemia. 5. Depression. 6. Osteoarthritis. 7. Peripheral arterial disease. 8. Peptic ulcer disease. FAMILY HISTORY: The patient denies significant premature coronary artery disease or sudden cardiac . SOCIAL HISTORY: Ongoing smoker. Denies significant alcohol abuse. Lives with her . HOME MEDICATIONS: Include; Xanax, Dulera, vitamin D, escitalopram, gabapentin, Lantus, NovoLog, omeprazole and simvastatin. ALLERGIES: No known drug allergies. REVIEW OF SYSTEMS: Review of systems was completed due to her emergent situation. PHYSICAL EXAMINATION: VITAL SIGNS: Blood pressure 165/93, heart rate is 104. She is satting 95% on room air, with temperature of 36.6. GENERAL: The patient appears mildly dyspneic, but in no acute distress. She appears uncomfortable. HEENT: Sclerae are anicteric. Oropharynx is clear. Mucous membranes are moist. NECK: Supple. LUNGS: She has a few crackles at the right base greater than left base, otherwise clear. CARDIAC: She has a regular rate and rhythm with no murmurs, rubs or gallops. ABDOMEN: Soft, nontender and nondistended with positive bowel sounds. EXTREMITIES: Warm. She has 2+ femoral pulses bilaterally. She has a palpable 2+ PT pulse on the left and 1+ on the right. She has 2+ radial pulses bilaterally. SKIN: Shows no rashes or lesions. NEUROLOGIC: Nonfocal. PSYCHIATRIC: Alert and appropriate. LABORATORY DATA: Sodium 134, potassium 3.6, BUN of 25 and creatinine of 2.8. Initial CK-MB of 7.8. Initial troponin of 3.5. White blood cell count is 11.9, hemoglobin is 11.3 and platelets of 314. Chest x-ray showed opacity at the level of the left cardiophrenic angle, likely atelectasis; no costa evidence of failure. Subsequent EKG showed sinus tachycardia with a ventricular rate of 105. There were ST depressions in V2 through V4 and possible old inferior infarct. Prior cardiac imaging: Echocardiogram in 2002 showed preserved LV function with no regional wall motion abnormalities. No significant valvular pathology. IMPRESSION AND PLAN: 1. High risk non-ST segment elevation myocardial infarction. 2. Acute on chronic renal insufficiency. 3. Type 2 diabetes, on insulin. 4. Hypertension. Patient is here with intermittent chest pain over the last 2 weeks, persistent today in the setting of dynamic ST changes. The patient continues to have active chest pain in the Emergency Department and despite her acute on chronic renal insufficiency feels that additional evaluation with cardiac catheterization is warranted. We will plan to proceed with catheterization via right radial artery. Risks, benefits and alternatives to the procedure were explained to the patient and she is willing to proceed. Further recommendations pending findings of cardiac catheterization. Thank you for allowing us to participate in the care of this patient. Please contact with any questions. SARA
[2016-11-18] MEDS: LEVALBUTEROL 1.25MG/0.5ML NEB INH SCH ×4 (01:59→20:13)
[2016-11-18] MEDS: IPRATROPIUM BROMIDE NEB SOLN 0.02% 2.5 ML VIAL INH SCH ×4 (01:59→20:13)
[2016-11-18 02:40] LABS: PARTIAL THROMBOPLASTIN RATIO 2.8
[2016-11-18] MEDS ORDERED: LEVALBUTEROL/IPRATROPIUM NEB INH SCH (03:00)
[2016-11-18 06:28] LABS: BASO % 0.1 %; BASO ABS # 0.02 K/uL (0-0.2); COMPLETE YES; EOS % 0.1 %; HEMATOCRIT 33.4 % (37-47); IG% 0.2 %; LYMPH % 3.3 %; LYMPH ABS # 0.48 K/uL (1.2-3.4); MEAN CELL VOLUME 80.9 fL (80-100); MEAN CORPUSCULAR HEMOGLOBIN 26.9 pg (25-34); MEAN CORPUSCULAR HGB CONC 33.2 g/dl (32-36); MEAN PLATELET VOLUME 10.9 fL (7.4-10.4); NEUT % 91.3 %; PLATELET COUNT 302 K/uL (130-400); RED BLOOD COUNT 4.13 M/uL (4.2-5.4); WHITE BLOOD COUNT 14.35 K/uL (4.8-10.8)
--- NOTE | 2016-11-18 06:41 | DIAGNOSTIC IMAGING REPORT ---
CHEST CT WITHOUT CONTRAST CT DOSE: 422.19 mGy.cm HISTORY: Dyspnea cp TECHNIQUE: Multiaxial CT images of the chest were performed without contrast. COMPARISON: None. FINDINGS: Bibasilar interstitial infiltrative change. Infiltrative change of the right upper lobe as well as components of the lingula. Mild infiltrative change in interstitial basis of the pulmonary apices. No regions of consolidation. No significant parenchymal nodularity. Several reactive mediastinal and/or hilar nodes. IMPRESSION: Diffuse bilateral parenchymal interstitial change. Electronically signed by: Jamison Valencia M.D. 11/18/2016 6:39 AM Dictated Date/Time: 11/18/2016 6:35 AM
[2016-11-18 06:46] LABS: PARTIAL THROMBOPLASTIN RATIO 2.1
--- NOTE | 2016-11-18 06:48 | DIAGNOSTIC IMAGING REPORT ---
CHEST ONE VIEW PORTABLE CLINICAL HISTORY: SOB dyspnea COMPARISON STUDY: 11/17/2016 FINDINGS: Interval development of bilateral basilar parenchymal infiltrative change. Interval development of a right apical infiltrative process. Moderate peribronchial thickening throughout. IMPRESSION: Interval development of diffuse bilateral parenchymal infiltrative change with moderate generalized peribronchial thickening Electronically signed by: Jamison Valencia M.D. 11/18/2016 6:46 AM Dictated Date/Time: 11/18/2016 6:45 AM
[2016-11-18 07:05] LABS: CALCIUM 8.7 mg/dl (8.5-10.1); CREATININE 2.7 mg/dl (0.60-1.20); POTASSIUM 3.7 mmol/L (3.5-5.1)
[2016-11-18 07:12] LABS: CHOLESTEROL/HDL RATIO 5.1
[2016-11-18 07:23] LABS: BETA-HYDROXYBUTYRATE 0.61 mg/dL (0.2-2.81)
--- NOTE | 2016-11-18 07:50 | Cardiology Follow-Up ---
Subjective Subjective Date of Service: Nov 18, 2016. Pt evaluation today including: conversation w/ patient, physical exam, chart review, lab review, review of studies, review of inpatient medication list Additional Details: Overnight acutely dyspneic. CXR/CT reviewed and consistent with pulmonary edema --> received 40 IV lasix. 2400cc out, negative 1300 Breathing improved this AM. Off supplemental O2. Denies chest pain. Mild tenderness at access site. No other new complaints. Tele reviewed -- sinus tach, occasional PAC/PVCs Echo reviewed at bedside -- Mild LV dysfunction, EF 45-50%, inf/inferolateral hypokinesis, mild AI, grade I diastolic dysfunction. Estimated RA pressure 3 Problem List Medical Problems: (1) Acute coronary syndrome Status: Acute (2) Acute electrocardiogram changes Status: Acute (3) Ankle pain Status: Acute (4) Chronic kidney disease Status: Acute (5) Colitis Status: Acute (6) NSTEMI (non-ST elevated myocardial infarction) Status: Acute Review of Systems Constitutional: No chills, No fever Eyes: No worsening of vision Respiratory: + dyspnea at rest, + dyspnea on exertion, + shortness of breath, + wheezing, No cough, No sputum Cardiac: + orthopnea, No chest pain Abdomen: No nausea, No pain Female : No dysuria Heme: No abnormal bleeding/bruising Skin: No rash Objective Vital Signs Last Vital Signs Documentation Date Time Temp Pulse Resp B/P Pulse Ox O2 Delivery O2 Flow Rate FiO2 11/18/16 04:00 Nasal Cannula 11/18/16 03:45 37.1 101 22 133/75 95 11/18/16 03:04 1.0 Physical Exam: General Appearance: no apparent distress ENT: normal ENT inspection, hearing grossly normal Respiratory/Chest: no respiratory distress, no accessory muscle use, + crackles (few at left base > right) Cardiovascular: no edema, no gallop, no JVD, + tachycardia Abdomen: normal bowel sounds, non tender, soft Extremities: non-tender, normal inspection, + pertinent finding (mild ecchymosis at access site. no hematoma. intact distal pulses/sensation) Neurologic/Psychiatric: no motor/sensory deficits, alert, normal mood/affect Skin: normal color, warm/dry Lymphatic: no adenopathy Assessment and Plan 1. NSTEMI - s/p PCI to mid-distal circumflex; hemodynamically, electrically stable and chest pain free this AM. Trop peaked. Posterior hypokinesis but LV function grossly preserved 2. Residual LAD disease - intermediate proximal stenosis; additional ischemia assessment at some point, likely as an outpatient. 3. Acute heart failure - improved congestion post diuresis overnight; est RA pressure on echo normal 4. Acute on chronic renal insufficiency - SCr stable presently post procedure and diuresis. 5. HTN -- well controlled on current regimen 6. Type 2 DM -- on home insulin, current sugars above goal. -- Continue DAPT with ASA/ticagrelor. Transition to Clopidogrel on discharge -- Hold on additional diuretics and IV fluids at present -- Can d/c heparin infusion -- Repeat ECG this AM pending. -- Increase metoprolol to 50mg BID. Continue current statin -- Glycemic control, antibiotics per hospital medicine. Will continue to follow. Medications: Current Inpatient Medications Medications (Trade) Dose Ordered Sig/Dajuan Route Start Time Stop Time Status Last Admin Dose Admin Ondansetron HCl (Zofran Inj) 4 mg Q6H PRN IV 11/17/16 20:15 12/17/16 20:14 Aspirin (Ecotrin Tab) 81 mg QAM PO 11/18/16 09:00 12/18/16 08:59 Atorvastatin Calcium (Lipitor Tab) 80 mg QAM PO 11/18/16 09:00 12/18/16 08:59 Metoprolol Tartrate (Lopressor Tab) 25 mg Q12 PO 11/17/16 21:00 12/17/16 20:59 11/17/16 21:58 25 MG Acetaminophen (Tylenol Tab) 650 mg Q4H PRN PO 11/17/16 20:15 12/17/16 20:14 Ticagrelor (Brilinta Cap) 90 mg BID PO 11/18/16 09:00 12/18/16 08:59 Alprazolam (Xanax Tab) 0.25 mg HS PRN PO 11/17/16 20:15 12/17/16 20:14 Escitalopram Oxalate (Lexapro Tab) 10 mg QPM PO 11/17/16 21:00 12/17/16 20:59 11/17/16 21:59 10 MG Gabapentin (Neurontin Cap) 300 mg HS PO 11/17/16 21:00 12/17/16 20:59 11/17/16 21:58 300 MG Pantoprazole Sodium (Protonix Tab) 40 mg QAM PO 11/18/16 09:00 12/18/16 08:59 Insulin Glargine (Lantus Solostar Pen) 20 unit QPM SC 11/17/16 21:00 12/17/16 20:59 11/18/16 00:07 20 UNIT Insulin Aspart (novoLOG ASPART) SLIDING SCALE If C... ACHS SC 11/17/16 21:00 12/17/16 20:59 11/18/16 00:06 2 UNITS Glucose (Glucose 40% Gel) 15-30 GRAMS 15 GRAMS... UD PRN PO 11/17/16 20:15 12/17/16 20:14 Glucose (Glucose Chew Tab) 4-8 Tablets 4 Tabl... UD PRN PO 11/17/16 20:15 12/17/16 20:14 Dextrose (Dextrose 50% 50ML Syringe) 25-50ML OF 50% DW IV FOR... UD PRN IV 11/17/16 20:15 12/17/16 20:14 Glucagon (Glucagon Inj) 1 mg UD PRN SQ 11/17/16 20:15 12/17/16 20:14 Insulin Glargine 10 unit 10 unit QAM SC 11/18/16 09:00 12/18/16 08:59 Heparin Sodium/ Dextrose (Heparin 25,000 Unit/500ml D5W) 500 ml @ 22 mls/hr [id number] PRN IV 11/17/16 21:00 12/17/16 20:59 11/18/16 04:03 22 MLS/HR Ipratropium Bradley (Atrovent 0.02% 0.5MG/2.5ML Neb) 0.5 mg Q6R INH 11/18/16 03:00 12/18/16 02:59 11/18/16 01:59 0.5 MG Levalbuterol (Xopenex 1.25MG/ 0.5ML Neb) 1.25 mg Q6R INH 11/18/16 03:00 12/18/16 02:59 11/18/16 01:59 1.25 MG Ipratropium Bradley (Atrovent 0.02% 0.5MG/2.5ML Neb) 0.5 mg Q2H PRN INH 11/17/16 23:45 12/17/16 23:44 11/18/16 00:06 0.5 MG Levalbuterol 1.25 mg 1.25 mg Q2H PRN INH 11/17/16 23:45 12/17/16 23:44 11/18/16 00:06 1.25 MG Piperacillin Sod/ Tazobactam Sod/ Dextrose (Zosyn Iv/D5 100ml) 115 ml @ 28.75 mls/ hr Q12H IV 11/18/16 10:00 11/25/16 09:59 Piperacillin Sod/ Tazobactam Sod (Consult) 1 ea UD PRN N/A 11/18/16 00:30 12/18/16 00:29 Vancomycin HCl (Consult) 1 ea UD PRN N/A 11/18/16 00:30 12/18/16 00:29 Lab Results: 11/18/16 06:11 Red Blood Count 4.13, Mean Corpuscular Volume 80.9, Mean Corpuscular Hemoglobin 26.9, Mean Corpuscular Hemoglobin Concent 33.2, Mean Platelet Volume 10.9, Neutrophils (%) (Auto) 91.3, Lymphocytes (%) (Auto) 3.3, Monocytes (%) (Auto) 5.0, Eosinophils (%) (Auto) 0.1, Basophils (%) (Auto) 0.1, Neutrophils # (Auto) 13.09, Lymphocytes # (Auto) 0.48, Monocytes # (Auto) 0.72, Eosinophils # (Auto) 0.01, Basophils # (Auto) 0.02 11/18/16 06:11 Test 11/17/16 17:00 11/17/16 19:41 11/18/16 06:11 11/18/16 06:22 Total Creatine Kinase 244 U/L (26-192) Creatine Kinase MB 7.8 ng/ml (0.5-3.6) Creatine Kinase MB Ratio 3.2 (0-3.0) Kaolin Activated Coagulation Time 260 SECONDS (94-140) White Blood Count 14.35 K/uL (4.8-10.8) Red Blood Count 4.13 M/uL (4.2-5.4) Hemoglobin 11.1 g/dL (12.0-16.0) Hematocrit 33.4 % (37-47) Mean Corpuscular Volume 80.9 fL (80-100) Mean Corpuscular Hemoglobin 26.9 pg (25-34) Mean Corpuscular Hemoglobin Concent 33.2 g/dl (32-36) Platelet Count 302 K/uL (130-400) Mean Platelet Volume 10.9 fL (7.4-10.4) Neutrophils (%) (Auto) 91.3 % Lymphocytes (%) (Auto) 3.3 % Monocytes (%) (Auto) 5.0 % Eosinophils (%) (Auto) 0.1 % Basophils (%) (Auto) 0.1 % Neutrophils # (Auto) 13.09 K/uL (1.4-6.5) Lymphocytes # (Auto) 0.48 K/uL (1.2-3.4) Monocytes # (Auto) 0.72 K/uL (0.11-0.59) Eosinophils # (Auto) 0.01 K/uL (0-0.5) Basophils # (Auto) 0.02 K/uL (0-0.2) RDW Standard Deviation 42.6 fL (36.4-46.3) RDW Coefficient of Variation 14.4 % (11.5-14.5) Immature Granulocyte % (Auto) 0.2 % Immature Granulocyte # (Auto) 0.03 K/uL (0.00-0.02) Activated Partial Thromboplast Time 54.2 SECONDS (21.0-31.0) Partial Thromboplastin Ratio 2.1 Anion Gap 14.0 mmol/L (3-11) Est Creatinine Clear Calc Drug Dose 19.4 ml/min Estimated GFR () 19.6 Estimated GFR (Non- 16.9 BUN/Creatinine Ratio 9.0 (10-20) Calcium Level 8.7 mg/dl (8.5-10.1) Troponin I 32.000 ng/ml (0-0.045) Triglycerides Level 176 mg/dl (0-150) Cholesterol Level 179 mg/dl (0-200) HDL Cholesterol 35 mg/dl LDL Cholesterol, Calculated 109 mg/dl VLDL Cholesterol, Calculated 35 mg/dl Cholesterol/HDL Ratio 5.1 Beta-Hydroxybutyric Acid 0.61 mg/dL (0.2-2.81) Bedside Glucose 360 mg/dl (70-90) Test 11/18/16 07:19
[2016-11-18] MEDS ORDERED: PERFLUTREN LIPID MICROSPHERE (DEFINITY) IV ONE (07:51)
[2016-11-18 08:22] LABS: ESTIMATED AVERAGE GLUCOSE 180 mg/dl; HA1C FLAG Normal (Normal)
[2016-11-18 08:28] LABS: PARTIAL THROMBOPLASTIN RATIO 1.9
--- NOTE | 2016-11-18 08:37 | Pharmacy Progress Note ---
Pharmacy Antibiotic Consult Date of Service: Nov 18, 2016. Pharmacy Dosing Scope Pharmacy is consulted to initiate Vancomycin and Zosyn IV dosing therapy, order appropriate labs and adjust drug dose/frequency. Subjective The patient is a 71 year old female admitted on Nov 17, 2016 at 20:20. Objective Height (Feet): 5 Height (Inches): 6.00 Weight (Kilograms): 74.000 Lab Results (24hrs): Laboratory Tests Test 11/17/16 17:00 11/18/16 00:15 11/18/16 06:11 BUN/Creatinine Ratio 9.0 9.4 9.0 Blood Urea Nitrogen 25 mg/dl 23 mg/dl 24 mg/dl Creatinine 2.80 mg/dl 2.50 mg/dl 2.70 mg/dl White Blood Count 11.95 K/uL 14.35 K/uL Red Blood Count 4.13 M/uL 4.13 M/uL Hemoglobin 11.3 g/dL 11.1 g/dL Hematocrit 34.3 % 33.4 % Mean Corpuscular Volume 83.1 fL 80.9 fL Mean Corpuscular Hemoglobin 27.4 pg 26.9 pg Mean Corpuscular Hemoglobin Concent 32.9 g/dl 33.2 g/dl Platelet Count 314 K/uL 302 K/uL Mean Platelet Volume 10.7 fL 10.9 fL Neutrophils (%) (Auto) 87.0 % 91.3 % Lymphocytes (%) (Auto) 6.6 % 3.3 % Monocytes (%) (Auto) 5.9 % 5.0 % Eosinophils (%) (Auto) 0.1 % 0.1 % Basophils (%) (Auto) 0.1 % 0.1 % Neutrophils # (Auto) 10.40 K/uL 13.09 K/uL Lymphocytes # (Auto) 0.79 K/uL 0.48 K/uL Monocytes # (Auto) 0.70 K/uL 0.72 K/uL Eosinophils # (Auto) 0.01 K/uL 0.01 K/uL Basophils # (Auto) 0.01 K/uL 0.02 K/uL Assessment & Plan * Pt with possible developing pneumonia ordered Zosyn and Vancomycin IV overnight. Both IV antibiotics will be pharmacy consults for dose management. Pt's kidney function is poor. Estimated Crcl is ~19 ml/min thus increasing risk for accumulation of antibiotics. Will renally adjust dosing. Vancomycin * Pt given Vancomycin 1500mg IV x 1 (20 mg/kg) around midnight. * Estimated half life is 35 hours. * Will order a random Vancomycin level to be drawn tomorrow with AM labs. Will re-dose Vancomycin when level is < 20 mcg/ml. * Will plan to continue dosing Vancomycin based on random levels until kidney function improves (b/l?) or a maintenance regimen can be created based on dosing patterns and levels. Zosyn * Pt given bolus of Zosyn 4.5gm IV x 1 then ordered a maintenance regimen of Zosyn 3.375gm IV EI q 12 hours for Crcl < 20 ml/min. Pharmacy will continue to follow and will adjust dose/frequency as necessary. Thank you
[2016-11-18] MEDS ORDERED: INSULIN GLARGINE SOLOSTAR 100 UNITS/ML 3 ML PEN SC SCH (09:00)
[2016-11-18] MEDS: TICAGRELOR 90 MG TAB PO SCH ×2 (09:04→20:29)
[2016-11-18] MEDS: ASPIRIN 81 MG ECTAB PO SCH (09:05)
--- NOTE | 2016-11-18 09:05 | Family Medicine Progress Note ---
Progress Note Date of Service Nov 18, 2016. Subjective Pt evaluation today including: conversation w/ patient, physical exam, chart review, lab review, review of studies, review of inpatient medication list Voiding: no incontinence, hodges catheter in place Feeling much better this morning. No chest or shoulder pain since cardiac cath. Her shortness of breath has improved since IV lasix given. She denies any fever, chills or cough before admission. Denies orthopnea, PND, palpitations or claudication. All Other Systems: Reviewed and Negative Medications Current Inpatient Medications Medications (Trade) Dose Ordered Sig/Dajuan Route Start Time Stop Time Status Last Admin Dose Admin Ondansetron HCl (Zofran Inj) 4 mg Q6H PRN IV 11/17/16 20:15 12/17/16 20:14 Aspirin (Ecotrin Tab) 81 mg QAM PO 11/18/16 09:00 12/18/16 08:59 Atorvastatin Calcium (Lipitor Tab) 80 mg QAM PO 11/18/16 09:00 12/18/16 08:59 Metoprolol Tartrate (Lopressor Tab) 25 mg Q12 PO 11/17/16 21:00 12/17/16 20:59 11/17/16 21:58 25 MG Acetaminophen (Tylenol Tab) 650 mg Q4H PRN PO 11/17/16 20:15 12/17/16 20:14 Ticagrelor (Brilinta Cap) 90 mg BID PO 11/18/16 09:00 12/18/16 08:59 Alprazolam (Xanax Tab) 0.25 mg HS PRN PO 11/17/16 20:15 12/17/16 20:14 Escitalopram Oxalate (Lexapro Tab) 10 mg QPM PO 11/17/16 21:00 12/17/16 20:59 11/17/16 21:59 10 MG Gabapentin (Neurontin Cap) 300 mg HS PO 11/17/16 21:00 12/17/16 20:59 11/17/16 21:58 300 MG Pantoprazole Sodium (Protonix Tab) 40 mg QAM PO 11/18/16 09:00 12/18/16 08:59 Insulin Glargine (Lantus Solostar Pen) 20 unit QPM SC 11/17/16 21:00 12/17/16 20:59 11/18/16 00:07 20 UNIT Insulin Aspart (novoLOG ASPART) SLIDING SCALE If C... ACHS SC 11/17/16 21:00 12/17/16 20:59 11/18/16 00:06 2 UNITS Glucose (Glucose 40% Gel) 15-30 GRAMS 15 GRAMS... UD PRN PO 11/17/16 20:15 12/17/16 20:14 Glucose (Glucose Chew Tab) 4-8 Tablets 4 Tabl... UD PRN PO 11/17/16 20:15 12/17/16 20:14 Dextrose (Dextrose 50% 50ML Syringe) 25-50ML OF 50% DW IV FOR... UD PRN IV 11/17/16 20:15 12/17/16 20:14 Glucagon (Glucagon Inj) 1 mg UD PRN SQ 11/17/16 20:15 12/17/16 20:14 Insulin Glargine 10 unit 10 unit QAM SC 11/18/16 09:00 12/18/16 08:59 Heparin Sodium/ Dextrose (Heparin 25,000 Unit/500ml D5W) 500 ml @ 22 mls/hr [id number] PRN IV 11/17/16 21:00 12/17/16 20:59 11/18/16 04:03 22 MLS/HR Ipratropium [place] (Atrovent 0.02% 0.5MG/2.5ML Neb) 0.5 mg Q6R INH 11/18/16 03:00 12/18/16 02:59 11/18/16 01:59 0.5 MG Levalbuterol (Xopenex 1.25MG/ 0.5ML Neb) 1.25 mg Q6R INH 11/18/16 03:00 12/18/16 02:59 11/18/16 01:59 1.25 MG Ipratropium [place] (Atrovent 0.02% 0.5MG/2.5ML Neb) 0.5 mg Q2H PRN INH 11/17/16 23:45 12/17/16 23:44 11/18/16 00:06 0.5 MG Levalbuterol 1.25 mg 1.25 mg Q2H PRN INH 11/17/16 23:45 12/17/16 23:44 11/18/16 00:06 1.25 MG Piperacillin Sod/ Tazobactam Sod/ Dextrose (Zosyn Iv/D5 100ml) 115 ml @ 28.75 mls/ hr Q12H IV 11/18/16 10:00 11/25/16 09:59 Piperacillin Sod/ Tazobactam Sod (Consult) 1 ea UD PRN N/A 11/18/16 00:30 12/18/16 00:29 Vancomycin HCl (Consult) 1 ea UD PRN N/A 11/18/16 00:30 12/18/16 00:29 Objective Vital Signs Date Time Temp Pulse Resp B/P Pulse Ox O2 Delivery O2 Flow Rate FiO2 11/18/16 08:00 Room Air 11/18/16 07:50 36.8 102 16 134/72 95 11/18/16 04:00 Nasal Cannula 11/18/16 03:45 37.1 101 22 133/75 95 Room Air 11/18/16 03:04 37.3 98 137/82 94 Nasal Cannula 1.0 11/18/16 01:59 94 16 95 Nasal Cannula 1.0 11/18/16 01:00 95 18 138/86 98 11/18/16 00:13 95 24 133/78 98 Nasal Cannula 6.0 11/18/16 00:06 95 16 98 Diffusion Mask 10.0 11/18/16 00:01 95 20 133/78 11/18/16 00:01 Nasal Cannula 11/17/16 23:43 36.7 102 28 197/95 95 Mask 10.0 11/17/16 23:15 93 20 142/94 93 Room Air 11/17/16 21:33 105 18 94 Room Air 11/17/16 21:30 97 20 107/93 100 11/17/16 21:00 103 20 141/86 97 11/17/16 20:45 108 18 144/84 93 Room Air 11/17/16 20:25 95 20 141/82 93 Room Air 11/17/16 20:10 89 16 140/83 96 Room Air 11/17/16 20:05 87 16 138/82 96 Room Air 11/17/16 20:00 85 16 135/80 96 Room Air 11/17/16 19:55 87 16 137/87 96 Room Air 11/17/16 18:07 104 18 165/93 95 Room Air 11/17/16 17:47 97 18 99/61 97 Room Air 11/17/16 17:07 101 11/17/16 17:04 96 Room Air 11/17/16 16:52 Room Air 11/17/16 16:47 36.6 108 18 171/79 99 Room Air Physical Exam General Appearance: WD/WN, no apparent distress Eyes: normal inspection, PERRL, EOMI Neck: supple, no JVD, trachea midline Respiratory/Chest: chest non-tender, no respiratory distress, no accessory muscle use, + crackles (bibasal) Cardiovascular: regular rate, rhythm, no murmur, + tachycardia (mild at times) Abdomen: normal bowel sounds, non tender, soft Extremities: no pedal edema, no calf tenderness, normal capillary refill Neurologic/Psychiatric: no motor/sensory deficits, alert, oriented x 3 Skin: normal color, warm/dry, no rash Laboratory Results 11/18/16 06:11 Red Blood Count 4.13, Mean Corpuscular Volume 80.9, Mean Corpuscular Hemoglobin 26.9, Mean Corpuscular Hemoglobin Concent 33.2, Mean Platelet Volume 10.9, Neutrophils (%) (Auto) 91.3, Lymphocytes (%) (Auto) 3.3, Monocytes (%) (Auto) 5.0, Eosinophils (%) (Auto) 0.1, Basophils (%) (Auto) 0.1, Neutrophils # (Auto) 13.09, Lymphocytes # (Auto) 0.48, Monocytes # (Auto) 0.72, Eosinophils # (Auto) 0.01, Basophils # (Auto) 0.02 11/18/16 06:11 Test 11/17/16 17:00 11/17/16 19:41 11/18/16 06:11 11/18/16 06:22 Total Creatine Kinase 244 U/L (26-192) Creatine Kinase MB 7.8 ng/ml (0.5-3.6) Creatine Kinase MB Ratio 3.2 (0-3.0) Kaolin Activated Coagulation Time 260 SECONDS (94-140) White Blood Count 14.35 K/uL (4.8-10.8) Red Blood Count 4.13 M/uL (4.2-5.4) Hemoglobin 11.1 g/dL (12.0-16.0) Hematocrit 33.4 % (37-47) Mean Corpuscular Volume 80.9 fL (80-100) Mean Corpuscular Hemoglobin 26.9 pg (25-34) Mean Corpuscular Hemoglobin Concent 33.2 g/dl (32-36) Platelet Count 302 K/uL (130-400) Mean Platelet Volume 10.9 fL (7.4-10.4) Neutrophils (%) (Auto) 91.3 % Lymphocytes (%) (Auto) 3.3 % Monocytes (%) (Auto) 5.0 % Eosinophils (%) (Auto) 0.1 % Basophils (%) (Auto) 0.1 % Neutrophils # (Auto) 13.09 K/uL (1.4-6.5) Lymphocytes # (Auto) 0.48 K/uL (1.2-3.4) Monocytes # (Auto) 0.72 K/uL (0.11-0.59) Eosinophils # (Auto) 0.01 K/uL (0-0.5) Basophils # (Auto) 0.02 K/uL (0-0.2) RDW Standard Deviation 42.6 fL (36.4-46.3) RDW Coefficient of Variation 14.4 % (11.5-14.5) Immature Granulocyte % (Auto) 0.2 % Immature Granulocyte # (Auto) 0.03 K/uL (0.00-0.02) Anion Gap 14.0 mmol/L (3-11) Est Creatinine Clear Calc Drug Dose 19.4 ml/min Estimated GFR () 19.6 Estimated GFR (Non- 16.9 BUN/Creatinine Ratio 9.0 (10-20) Estimated Average Glucose 180 mg/dl Hemoglobin A1c 7.9 % (4.5-5.6) Calcium Level 8.7 mg/dl (8.5-10.1) Troponin I 32.000 ng/ml (0-0.045) Triglycerides Level 176 mg/dl (0-150) Cholesterol Level 179 mg/dl (0-200) HDL Cholesterol 35 mg/dl LDL Cholesterol, Calculated 109 mg/dl VLDL Cholesterol, Calculated 35 mg/dl Cholesterol/HDL Ratio 5.1 Beta-Hydroxybutyric Acid 0.61 mg/dL (0.2-2.81) Bedside Glucose 360 mg/dl (70-90) Test 11/18/16 08:03 Activated Partial Thromboplast Time 48.4 SECONDS (21.0-31.0) Partial Thromboplastin Ratio 1.9 Magnesium Level 1.6 mg/dl (1.8-2.4) Assessment and Plan 71 yo with acute NSTEMI s/p 2 overlapping drug-eluting stents mid to distal circumflex. NSTEMI - ASA, Ticagrelor (transition to clopidogrel on d/c), Atorvastatin 80mg, metoprolol, not yet on ACEi due to high Cr on baseline CKD. Stop IV heparin as per Dr Childers Acute heart failure with reduced ejection fraction - pulmonary edema with resolved acute hypoxic respiratory failure (sats<90% RA and increased work of breathing) now mostly resolved - not for further lasix/IVF currently - aim sats > 90% (COPD Hx) - up titrate BB as able, no ACEi as above T2DM - increase bolus to aim 140-180, correction 40, carb coverage 15\ - continue basal home dose lantus 10 units QAM, 20 units QPM - diabetes education Chronic kidney disease stage 4 - under Dr Oliver, monitor Cr and I&Os, warrants extra day stay in hospital to monitor. UO good with lasix. Smoking - smoking cessation information on d/c - consider wellbutrin O/P - denies cravings and refuses nicotine patch Non Acute Anxiety -Continue Lexapro 10 mg COPD - Continue dulera 100/5 Peptic ulcer disease - omeprazole switched to Protonix due to formulary Diabetic neuropathy - Continue gabapentin VTE Prophylaxis - Heparin SQ 5000 units TID Code - Full Disposition - aim home/rehab tomorrow. PT + OT eval. Discharge planning Resident Physician Supervision Note: I interviewed and examined the patient. Discussed with Dr. Duke and agree with findings and plan as documented in the note. Any exceptions or clarifications are listed here: None Documented By: Chepe Camarillo feeling better, smoker and loosely seems to want to quit. chews. loosely aware of importance of sugar control. family present. no further chest pain, ros otherwise negative except for as above o: mikala noted, nad, room smells of cigarette smoke, breathing unlabored, no pallor or icterus labs, EKGs reviewed NSTEMI - now stable. med management reviewed. continue to titrate BP meds. encouraged smoke cessation and lifestyle change for DM. ongoing adjustments of insulins. 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 ongoing med management
[2016-11-18] MEDS: ATORVASTATIN 40 MG TAB PO SCH (09:06)
[2016-11-18] MEDS: METOPROLOL TARTRATE 25 MG TAB PO SCH (09:07)
[2016-11-18] MEDS: PANTOprazole SOD 40 MG TAB PO SCH (09:08)
--- NOTE | 2016-11-18 09:31 | Clinical Documentation Query ---
TELLY Milian : CLINICAL DOCUMENTATION QUERIES QUERY 1 OF 2 Patient is a 71 year old female admitted for treatment of NSTEMI. Documentation post interventional catheterization included "Heart failure with reduced ejection fraction - pulmonary edema". 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 Explicit documentation must exist in order to capture the severity of illness and associated risk of mortality tied to these important clinical diagnoses. As appropriate, consider documentation as suggested below. Thank you. In your clinical opinion is this patient being managed for: ( x ) Acute pulmonary edema secondary to acute systolic/preserved EF CHF in the setting of NSTEMI, resolved. ( ) Other explanation of clinical findings (Please Explain) ( ) Unable to determine (Please Define) ( ) Need to Discuss ( ) Not Agree The medical record reflects the following clinical findings, treatment, and risk factors. Clinical Indicators: As above Treatment: Telemetry, IV Lasix, I/O, daily weights. Risk Factors: IVF administration, NSTEMI QUERY 2 OF 2 H&P documentation includes "acute on chronic kidney disease". This literally translates to acute kidney disease on chronic kidney disease. These former codes to an unspecified disorder of the kidney which does not equate with ARF/DEMETRA. The latter lacks specificity in terms of staging. Estimated GFR dating back as far as 05/2015 was less than 30 ml/min. Consider documentation as suggested below to definitively capture the severity associated with both of these important clinical diagnoses. Thank you. In your clinical opinion is this patient being managed for: ( x ) Acute kidney failure on CKD stage 4 ( ) Other explanation of clinical findings (Please Explain) ( ) Unable to determine (Please Define) ( ) Need to Discuss ( ) Not Agree The medical record reflects the following clinical findings, treatment, and risk factors. Clinical Indicators: As above Treatment: IVF, serial chemistries Risk Factors: Age, DM, NSTEMI Please clarify and document your clinical opinion in the progress notes and discharge summary. Terms such as "probable", "suspected", "likely", "questionable", "possible", or "still to be ruled out" are acceptable. IF IN AGREEMENT, YOU MUST DOCUMENT ABOVE DIAGNOSTIC STATEMENT IN DAILY PROGRESS NOTES AND DISCHARGE SUMMARY. This document is not part of the patient's record. Thank You, Josesito Cota, RN [phone]
--- NOTE | 2016-11-18 09:34 | Clinical Documentation Query ---
ISABEL Og : CLINICAL DOCUMENTATION QUERIES QUERY 1 OF 2 H&P documentation includes "acute on chronic kidney disease". This literally translates to acute kidney disease on chronic kidney disease. These former codes to an unspecified disorder of the kidney which does not equate with ARF/DEMETRA. The latter lacks specificity in terms of staging. Estimated GFR dating back as far as 05/2015 was less than 30 ml/min. Consider documentation as suggested below to definitively capture the severity associated with both of these important clinical diagnoses. Thank you. In your clinical opinion is this patient being managed for: ( ) Acute kidney failure on CKD stage 4 (X) Other explanation of clinical findings (CKD stage 4) ( ) Unable to determine (Please Define) ( ) Need to Discuss ( ) Not Agree The medical record reflects the following clinical findings, treatment, and risk factors. Clinical Indicators: As above Treatment: IVF, serial chemistries Risk Factors: Age, DM, NSTEMI QUERY 2 OF 2 H&P documentation includes "acute on chronic kidney disease". This literally translates to acute kidney disease on chronic kidney disease. These former codes to an unspecified disorder of the kidney which does not equate with ARF/DEMETRA. The latter lacks specificity in terms of staging. Estimated GFR dating back as far as 05/2015 was less than 30 ml/min. Consider documentation as suggested below to definitively capture the severity associated with both of these important clinical diagnoses. Thank you. In your clinical opinion is this patient being managed for: ( ) Acute kidney failure on CKD stage 4 (X) Other explanation of clinical findings CKD stage 4 ( ) Unable to determine (Please Define) ( ) Need to Discuss ( ) Not Agree The medical record reflects the following clinical findings, treatment, and risk factors. Clinical Indicators: As above Treatment: IVF, serial chemistries Risk Factors: Age, DM, NSTEMI Please clarify and document your clinical opinion in the progress notes and discharge summary. Terms such as "probable", "suspected", "likely", "questionable", "possible", or "still to be ruled out" are acceptable. IF IN AGREEMENT, YOU MUST DOCUMENT ABOVE DIAGNOSTIC STATEMENT IN DAILY PROGRESS NOTES AND DISCHARGE SUMMARY. This document is not part of the patient's record. Thank You, Josesito Cota, RN [phone]
[2016-11-18] MEDS ORDERED: PIPERACILL/TAZOBAC IV 3.375 GM in DEXTROSE 5% 100ML 100 ML IV SCH (10:00)
[2016-11-18] MEDS ORDERED: POTASSIUM CHLORIDE 20 MEQ TABCR PO ONE (10:45)
[2016-11-18] MEDS ORDERED: MAGNESIUM SULFATE 1GM / D5W 1 GM in PREMIXED IN D5W 100 ML IV ONE (10:45)
[2016-11-18 13:01] LABS: PARTIAL THROMBOPLASTIN RATIO 1.2; PROTHROMBIN TIME (PATIENT) 10.6 SECONDS (9.0-12.0)
[2016-11-18] MEDS: HEPARIN SOD 5000 UNIT/0.5 ML CARP SQ SCH ×2 (14:00→22:06)
[2016-11-18] MEDS ORDERED: FLUTICASONE HFA 110MCG INHALER INH ONE (15:26)
--- NOTE | 2016-11-18 19:07 | ECHOCARDIOGRAM REPORT ---
*NOTICE TO RECEIVING CONSTITUTION PARTY AGENCY This information is strictly Confidential and protected under [place] law. [place] law prohibits you from making any further disclosure of this information unless further disclosure is expressly permitted by the written consent of the person to whom it pertains or is authorized by law. A general authorization for the release of medical or other information is not sufficient for this purpose. Hospital accepts no responsibility if the information is made available to any other person, INCLUDING THE PATIENT. Interpretation Summary * Name: LINNETTE STEPHEN Study Date: 11/18/2016 06:49 AM BP: 133/75 mmHg * Patient Location: C.2E\S\E201\S\1 HR: 101 * : 1945 (M/d/yyyy) Gender: Female Height: 66 in * Age: 71 yrs Ethnicity: CA Weight: 164 lb * Ordering Physician: Sonny Childers * Referring Physician: Self, Referred * Performed By: Roman Cha RCS * * Reason For Study: AMI * BSA: 1.8 m2 * Mildly reduced overall left ventricular systolic function. * Inferior, posterior, lateral LV hypokinesis. * Left ventricular diastolic dysfunction. * Mild aortic regurgitation. * Trace mitral and tricuspid regurgitation. * -- Conclusions -- * Aortic valve sclerosis mild, without significant aortic valvular stenosis. Procedure Details * A complete two-dimensional transthoracic echocardiogram was performed (2D, M-mode, Doppler and color flow Doppler). * A contrast injection of Definity was performed to improve assessment of LV function. * Contrast was injected into an intravenous site in the left arm. * One vial of Definity ultrasound contrast was diluted in normal saline to a total volume of 10 ml. A total of '2' ml of solution was administered during imaging. * Lot # [id number] of Definity utilized for procedure. * Expiration date . * The attending nurse who injected the contrast agent was Anjali Shah RN. Left Ventricle * The left ventricle is normal in size. * There is normal left ventricular wall thickness. * Ejection Fraction = 50-55%. * A full diastolic examination was done with clinical findings of Class I diastolic dysfunction. * Left ventricular systolic function is mildly reduced. * Inferior, posterior, and lateral hypokinesis. Right Ventricle * The right ventricle is normal in size and function. Atria * The left atrial size is normal. * Right atrial size is normal. Mitral Valve * Thickened anterior leaflet * There is no mitral valve stenosis. * There is trace mitral regurgitation. Tricuspid Valve * The tricuspid valve is not well visualized. * No significant tricuspid stenosis. * There is trace tricuspid regurgitation. Aortic Valve * The aortic valve is not well visualized. * The aortic valve is trileaflet. * Aortic valve sclerosis mild, without significant aortic valvular stenosis. * Mild aortic regurgitation. Pulmonic Valve * The pulmonic valve is not well visualized. * The pulmonary valve is inadequately visualized, but the Doppler data is adequate for interpretation. * There is no significant pulmonary regurgitation. Great Vessels * The aortic root is normal size. Pericardium/Pleural * There is no pericardial effusion. Great Vessels * Normal inferior vena cava diameter and respiratory variation suggests normal central venous pressure. MMode 2D Measurements and Calculations IVSd 0.92 cm IVSs 1.2 cm LVIDd 4.5 cm LVIDs 2.9 cm LVPWd 1.0 cm LVPWs 1.2 cm IVS/LVPW 0.90 FS 35.6 % EDV(Teich) 92.8 ml ESV(Teich) 32.2 ml EF(Teich) 65.2 % EDV(cubed) 91.5 ml ESV(cubed) 24.4 ml EF(cubed) 73.3 % % IVS thick 31.9 % % LVPW thick 14.5 % LV mass(C)d 146.9 grams LV mass(C)dI 79.9 grams/m\S\2 LV mass(C)s 102.5 grams LV mass(C)sI 55.8 grams/m\S\2 CO(Teich) 6.3 l/min CI(Teich) 3.4 l/min/m\S\2 SV(Teich) 60.5 ml SI(Teich) 32.9 ml/m\S\2 CO(cubed) 7.0 l/min CI(cubed) 3.8 l/min/m\S\2 SV(cubed) 67.1 ml SI(cubed) 36.5 ml/m\S\2 Ao root diam 3.2 cm Ao root area 8.2 cm\S\2 ACS 1.7 cm LA dimension 3.6 cm LA/Ao 1.1 LVAd ap4 23.4 cm\S\2 LVLd ap4 7.2 cm EDV(MOD-sp4) 62.0 ml LVAs ap4 15.1 cm\S\2 LVLs ap4 6.2 cm ESV(MOD-sp4) 30.0 ml EF(MOD-sp4) 51.6 % LVAd ap2 27.0 cm\S\2 LVLd ap2 8.0 cm EDV(MOD-sp2) 75.0 ml LVAs ap2 17.5 cm\S\2 LVLs ap2 6.8 cm ESV(MOD-sp2) 39.0 ml EF(MOD-sp2) 48.0 % CO(MOD-sp4) 3.3 l/min CI(MOD-sp4) 1.8 l/min/m\S\2 SV(MOD-sp4) 32.0 ml SI(MOD-sp4) 17.4 ml/m\S\2 CO(MOD-sp2) 3.7 l/min CI(MOD-sp2) 2.0 l/min/m\S\2 SV(MOD-sp2) 36.0 ml SI(MOD-sp2) 19.6 ml/m\S\2 Doppler Measurements and Calculations MV E max michelle 73.2 cm/sec MV A max michelle 97.0 cm/sec MV E/A 0.75 MV P1/2t max michelle 100.8 cm/sec MV P1/2t 76.2 msec MVA(P1/2t) 2.9 cm\S\2 MV dec slope 387.3 cm/sec\S\2 MV dec time 0.18 sec Ao V2 max 106.8 cm/sec Ao max PG 4.6 mmHg Ao max PG (full) 2.0 mmHg AI max michelle 423.3 cm/sec AI max PG 71.7 mmHg AI dec slope 223.1 cm/sec\S\2 AI P1/2t 555.8 msec LV V1 max PG 2.5 mmHg LV V1 max 79.2 cm/sec PA V2 max 128.7 cm/sec PA max PG 6.6 mmHg TR max michelle 210.7 cm/sec
[2016-11-18] MEDS: GABAPENTIN 300 MG CAP PO SCH (20:30)
[2016-11-18] MEDS: MAGNESIUM OXIDE 400 MG TAB PO SCH (20:30)
[2016-11-18] MEDS: METOPROLOL TARTRATE 50 MG TAB PO SCH (20:31)
[2016-11-18] MEDS: ESCITALOPRAM OXALATE 10 MG TAB PO SCH (20:32)
[2016-11-18] MEDS ORDERED: FLUTICASONE HFA 110MCG INHALER INH SCH (21:00)
[2016-11-19] VITALS (11 sets, daily range): BP systolic 94–133; BP diastolic 56–84; PULSE 81–119; TEMP 36.4–37.7; O2SAT 81–98
[2016-11-19 00:05] LABS: BUN/CREATININE RATIO 9.6 (10-20); CALCIUM 8.6 mg/dl (8.5-10.1); CREATININE 2.9 mg/dl (0.60-1.20); POTASSIUM 3.5 mmol/L (3.5-5.1)
[2016-11-19] MEDS: IPRATROPIUM BROMIDE NEB SOLN 0.02% 2.5 ML VIAL INH SCH (02:38)
[2016-11-19] MEDS: LEVALBUTEROL 1.25MG/0.5ML NEB INH SCH (02:38)
[2016-11-19] MEDS: HEPARIN SOD 5000 UNIT/0.5 ML CARP SQ SCH ×3 (06:38→21:00)
[2016-11-19] MEDS: INSULIN ASPART 100 UNITS/ML 3 ML PEN SC SCH ×4 (07:00→20:57)
[2016-11-19 07:06] LABS: BASO % 0.2 %; BASO ABS # 0.02 K/uL (0-0.2); COMPLETE YES; EOS % 0.4 %; IG% 0.3 %; LYMPH % 8.3 %; LYMPH ABS # 0.86 K/uL (1.2-3.4); MEAN CELL VOLUME 82.2 fL (80-100); MEAN CORPUSCULAR HEMOGLOBIN 27.1 pg (25-34); MEAN CORPUSCULAR HGB CONC 32.9 g/dl (32-36); MEAN PLATELET VOLUME 11.2 fL (7.4-10.4); MONO % 9.5 %; NEUT % 81.3 %; PLATELET COUNT 298 K/uL (130-400); RED BLOOD COUNT 3.77 M/uL (4.2-5.4)
[2016-11-19] MEDS: LEVALBUTEROL 1.25MG/0.5ML NEB INH PRN ×2 (07:09→19:20)
[2016-11-19] MEDS: IPRATROPIUM BROMIDE NEB SOLN 0.02% 2.5 ML VIAL INH PRN ×2 (07:09→19:19)
[2016-11-19 07:39] LABS: BUN/CREATININE RATIO 10.1 (10-20); CALCIUM 8.9 mg/dl (8.5-10.1); CREATININE 2.9 mg/dl (0.60-1.20); MAGNESIUM 2.1 mg/dl (1.8-2.4); POTASSIUM 3.3 mmol/L (3.5-5.1)
[2016-11-19] MEDS: TICAGRELOR 90 MG TAB PO SCH (07:46)
[2016-11-19] MEDS: PANTOprazole SOD 40 MG TAB PO SCH ×2 (07:46→20:57)
[2016-11-19] MEDS: MAGNESIUM OXIDE 400 MG TAB PO SCH ×2 (07:47→20:59)
[2016-11-19] MEDS: ATORVASTATIN 40 MG TAB PO SCH (07:47)
[2016-11-19] MEDS: ASPIRIN 81 MG ECTAB PO SCH (07:47)
[2016-11-19] MEDS: METOPROLOL TARTRATE 50 MG TAB PO SCH ×2 (07:47→21:02)
[2016-11-19] MEDS: BUDESONIDE/FORMOTEROL FUMARATE 80/4.5 60 PUFFS/INHALER INH SCH ×2 (07:49→20:56)
[2016-11-19] MEDS: INSULIN GLARGINE SOLOSTAR 100 UNITS/ML 3 ML PEN SC SCH ×2 (07:53→20:59)
--- NOTE | 2016-11-19 08:20 | Family Medicine Progress Note ---
Progress Note Date of Service Nov 19, 2016. Subjective Pt evaluation today including: conversation w/ patient, physical exam, chart review, lab review, review of studies, review of inpatient medication list Pain: 0 Feeling well this morning. No chest pain or shortness of breath. Possible atrial fibrillation vs. sinus tachy with PACs. All Other Systems: Reviewed and Negative Medications Current Inpatient Medications Medications (Trade) Dose Ordered Sig/Dajuan Route Start Time Stop Time Status Last Admin Dose Admin Ondansetron HCl (Zofran Inj) 4 mg Q6H PRN IV 11/17/16 20:15 12/17/16 20:14 Aspirin (Ecotrin Tab) 81 mg QAM PO 11/18/16 09:00 12/18/16 08:59 11/19/16 07:47 81 MG Atorvastatin Calcium (Lipitor Tab) 80 mg QAM PO 11/18/16 09:00 12/18/16 08:59 11/19/16 07:47 80 MG Acetaminophen (Tylenol Tab) 650 mg Q4H PRN PO 11/17/16 20:15 12/17/16 20:14 Ticagrelor (Brilinta Cap) 90 mg BID PO 11/18/16 09:00 12/18/16 08:59 11/19/16 07:46 90 MG Alprazolam (Xanax Tab) 0.25 mg HS PRN PO 11/17/16 20:15 12/17/16 20:14 Escitalopram Oxalate (Lexapro Tab) 10 mg QPM PO 11/17/16 21:00 12/17/16 20:59 11/18/16 20:32 10 MG Gabapentin (Neurontin Cap) 300 mg HS PO 11/17/16 21:00 12/17/16 20:59 11/18/16 20:30 300 MG Pantoprazole Sodium (Protonix Tab) 40 mg QAM PO 11/18/16 09:00 12/18/16 08:59 11/19/16 07:46 40 MG Insulin Glargine (Lantus Solostar Pen) 20 unit QPM SC 11/17/16 21:00 12/17/16 20:59 11/18/16 20:41 20 UNIT Insulin Aspart (novoLOG ASPART) SLIDING SCALE If C... ACHS SC 11/17/16 21:00 11/18/16 20:40 2 UNITS Glucose (Glucose 40% Gel) 15-30 GRAMS 15 GRAMS... UD PRN PO 11/17/16 20:15 12/17/16 20:14 Glucose (Glucose Chew Tab) 4-8 Tablets 4 Tabl... UD PRN PO 11/17/16 20:15 12/17/16 20:14 Dextrose (Dextrose 50% 50ML Syringe) 25-50ML OF 50% DW IV FOR... UD PRN IV 11/17/16 20:15 12/17/16 20:14 Glucagon (Glucagon Inj) 1 mg UD PRN SQ 11/17/16 20:15 12/17/16 20:14 Ipratropium [place] (Atrovent 0.02% 0.5MG/2.5ML Neb) 0.5 mg Q2H PRN INH 11/17/16 23:45 12/17/16 23:44 11/18/16 00:06 0.5 MG Levalbuterol (Xopenex 1.25MG/ 0.5ML Neb) 1.25 mg Q2H PRN INH 11/17/16 23:45 12/17/16 23:44 11/18/16 00:06 1.25 MG Magnesium Oxide (Mag-Ox Tab) 400 mg BID PO 11/18/16 21:00 12/18/16 20:59 11/19/16 07:47 400 MG Heparin Sodium (Porcine) (Heparin Sq 5000 Unit/0.5ml) 5,000 unit Q8 SQ 11/18/16 14:00 12/18/16 13:59 11/19/16 06:38 5,000 UNIT Metoprolol Tartrate (Lopressor Tab) 50 mg Q12 PO 11/18/16 21:00 12/18/16 20:59 11/19/16 07:47 50 MG Insulin Glargine (Lantus Solostar Pen) 15 unit QAM SC 11/19/16 09:00 12/19/16 08:59 11/19/16 07:53 15 UNIT Budesonide/ Formoterol Fumarate (Symbicort 80/ 4.5 Inh) 2 puffs BID INH 11/19/16 09:00 12/19/16 08:59 11/19/16 07:49 2 PUFFS Tiotropium [place] (Spiriva Handihaler Inhaler) 1 puff QAM INH 11/19/16 09:00 12/19/16 08:59 Objective Vital Signs Date Time Temp Pulse Resp B/P Pulse Ox O2 Delivery O2 Flow Rate FiO2 11/19/16 08:15 36.4 96 18 113/66 98 11/19/16 04:00 Room Air 11/19/16 03:15 37.2 107 19 123/66 92 Room Air 11/19/16 02:38 88 16 95 Room Air 11/19/16 00:08 37.6 92 16 129/77 94 Room Air 11/19/16 00:01 Room Air 11/18/16 23:59 37.2 107 16 144/80 94 Room Air 16 11/18/16 20:15 106 16 95 Room Air 11/18/16 20:04 36.5 107 16 144/80 94 Room Air 11/18/16 19:20 Room Air 11/18/16 16:00 Room Air 11/18/16 15:20 98 11/18/16 15:01 36.6 96 20 134/69 100 Room Air 11/18/16 14:39 93 16 95 Room Air 11/18/16 12:28 36.8 93 20 113/66 95 Room Air 11/18/16 12:00 Room Air Physical Exam General Appearance: no apparent distress, + obese Neck: no JVD Respiratory/Chest: + crackles (bibasal crackles similar to previous day), + wheezing (expirtory wheezing) Cardiovascular: regular rate, rhythm, no murmur (quiet heart sounds but no murmur apprecited) Abdomen: normal bowel sounds, non tender, soft Extremities: no calf tenderness, normal capillary refill Neurologic/Psychiatric: no motor/sensory deficits (grossly moving all 4 limbs, subjectively normal), alert, oriented x 3 Skin: normal color, warm/dry, no rash Laboratory Results 11/19/16 06:40 Red Blood Count 3.77, Mean Corpuscular Volume 82.2, Mean Corpuscular Hemoglobin 27.1, Mean Corpuscular Hemoglobin Concent 32.9, Mean Platelet Volume 11.2, Neutrophils (%) (Auto) 81.3, Lymphocytes (%) (Auto) 8.3, Monocytes (%) (Auto) 9.5, Eosinophils (%) (Auto) 0.4, Basophils (%) (Auto) 0.2, Neutrophils # (Auto) 8.46, Lymphocytes # (Auto) 0.86, Monocytes # (Auto) 0.99, Eosinophils # (Auto) 0.04, Basophils # (Auto) 0.02 11/19/16 06:40 Test 11/18/16 12:30 11/19/16 06:40 Prothrombin Time 10.6 SECONDS (9.0-12.0) Prothromb Time International Ratio 1.0 (0.9-1.1) Activated Partial Thromboplast Time 30.6 SECONDS (21.0-31.0) Partial Thromboplastin Ratio 1.2 White Blood Count 10.40 K/uL (4.8-10.8) Red Blood Count 3.77 M/uL (4.2-5.4) Hemoglobin 10.2 g/dL (12.0-16.0) Hematocrit 31.0 % (37-47) Mean Corpuscular Volume 82.2 fL (80-100) Mean Corpuscular Hemoglobin 27.1 pg (25-34) Mean Corpuscular Hemoglobin Concent 32.9 g/dl (32-36) Platelet Count 298 K/uL (130-400) Mean Platelet Volume 11.2 fL (7.4-10.4) Neutrophils (%) (Auto) 81.3 % Lymphocytes (%) (Auto) 8.3 % Monocytes (%) (Auto) 9.5 % Eosinophils (%) (Auto) 0.4 % Basophils (%) (Auto) 0.2 % Neutrophils # (Auto) 8.46 K/uL (1.4-6.5) Lymphocytes # (Auto) 0.86 K/uL (1.2-3.4) Monocytes # (Auto) 0.99 K/uL (0.11-0.59) Eosinophils # (Auto) 0.04 K/uL (0-0.5) Basophils # (Auto) 0.02 K/uL (0-0.2) RDW Standard Deviation 43.0 fL (36.4-46.3) RDW Coefficient of Variation 14.2 % (11.5-14.5) Immature Granulocyte % (Auto) 0.3 % Immature Granulocyte # (Auto) 0.03 K/uL (0.00-0.02) Anion Gap 11.0 mmol/L (3-11) Est Creatinine Clear Calc Drug Dose 17.9 ml/min Estimated GFR () 18.0 Estimated GFR (Non- 15.5 BUN/Creatinine Ratio 10.1 (10-20) Bedside Glucose 179 mg/dl (70-90) Calcium Level 8.9 mg/dl (8.5-10.1) Magnesium Level 2.1 mg/dl (1.8-2.4) Assessment and Plan 71 yo with acute NSTEMI s/p 2 overlapping drug-eluting stents mid to distal circumflex. NSTEMI - ASA, clopidogrel, Atorvastatin 80mg, metoprolol, not yet on ACEi due to high Cr on baseline CKD. Abnormal tachycardia on telemetry - A fib vs. sinus tachy + PACs - replace potassium, aim >4.0. Monitor K and Mg - continue to monitor on telemetry, stat EKG if goes back into rhythm Acute heart failure with reduced ejection fraction - pulmonary edema with resolved acute hypoxic respiratory failure (sats<90% RA and increased work of breathing) now mostly resolved - not for further lasix/IVF currently. Weight decreased 2kg from 11/18 - aim sats > 90% (COPD Hx) - up titrate BB as able, no ACEi as above T2DM - increase bolus to aim 140-180, correction 30, carb coverage 9 - increase basal home dose lantus 15 units QAM, 20 units QPM - diabetes education Chronic kidney disease stage 4 - under Dr Oliver, monitor Cr and I&Os. UO good. Remains high but possibly will be her new baseline Cr 2.9. Will continue to monitor. If continues to rise will consult nephrology. Smoking - smoking cessation information on d/c - discussed importance of stopping by different providers on numerous occasions - consider Wellbutrin O/P - denies cravings and refuses nicotine patch COPD - mild exp wheezing this morning - decided against LABA initially due to tachycardia but will now switch her to Symbicort and start on spiriva. - stop regular nebs but continue PRN if continues to wheeze - use incentive spirometry Non Acute Anxiety -Continue Lexapro 10 mg Peptic ulcer disease - omeprazole switched to Protonix due to formulary Diabetic neuropathy - Continue gabapentin VTE Prophylaxis - Heparin SQ 5000 units TID Code - Full Disposition - Given possible A fib she will remain on tele to assess for further episodes. Will also monitor renal function. Resident Physician Supervision Note: I interviewed and examined the patient. Discussed with Dr. Duke and agree with findings and plan as documented in the note. Any exceptions or clarifications are listed here: None Documented By: Chepe Camarillo feeling oK no more chest pain vitals noted breathing unlabored labs reviewed NSTEMI / CAD - med management - doing well DEMETRA on CKD - likely from MT, newly reduced EF, necessary diuresis for acute systolic CHF. because of all of this, can't give IVF. d/w pt and family in depth. anticipate slow improvement back to baseline vs lesser but real chance that this is new baseline. follow up BMP in AM - if same or better, then continue to follow and OK to f/u as outpt; if worsening at all, would consult nephrology otherwise as above Resident Tracking Resident Involvement: Resident Care Provided Care Provided: Adult Hospital Medicine
[2016-11-19] MEDS: TIOTROPIUM BROMIDE 5 PUFF/90 MCG INH INH SCH (09:00)
[2016-11-19] MEDS ORDERED: CLOPIDOGREL BISULFATE 300 MG TAB PO STA (12:31)
--- NOTE | 2016-11-19 12:31 | Cardiology Follow-Up ---
Subjective Subjective Date of Service: Nov 19, 2016. Pt evaluation today including: conversation w/ patient, physical exam, chart review, lab review, review of studies, review of inpatient medication list Additional Details: Feeling well at present. State having episodes of what she thinks are "panic attacks," where cant catch her breath. No associated chest pain similar to presentation. Otherwise no new complaints. Tele reviewed -- periods overnight concerning for atrial fibrillation vs sinus tach with PACs. Several episodes of with ventricular rates to 150s. Problem List Medical Problems: (1) Acute coronary syndrome Status: Acute (2) Acute electrocardiogram changes Status: Acute (3) Ankle pain Status: Acute (4) Chronic kidney disease Status: Acute (5) Colitis Status: Acute (6) NSTEMI (non-ST elevated myocardial infarction) Status: Acute Review of Systems Constitutional: No chills, No fever Eyes: No worsening of vision Respiratory: No cough, No shortness of breath, No sputum Cardiac: No chest pain Abdomen: No nausea, No pain Female : No dysuria Psychiatric: No depression symptoms Heme: No abnormal bleeding/bruising Skin: No rash Objective Vital Signs Last Vital Signs Documentation Date Time Temp Pulse Resp B/P Pulse Ox O2 Delivery O2 Flow Rate FiO2 11/19/16 11:47 36.4 81 18 94/56 96 Room Air 11/18/16 03:04 1.0 Physical Exam: General Appearance: no apparent distress Neck: supple, no JVD Respiratory/Chest: chest non-tender, lungs clear, no respiratory distress, no accessory muscle use Cardiovascular: regular rate, rhythm, no edema, no murmur Abdomen: normal bowel sounds, non tender, soft Extremities: no pedal edema, no calf tenderness, + pertinent finding ( ecchymosis, tenderness at right radial artery access site. Intact distal pulses. ) Neurologic/Psychiatric: no motor/sensory deficits, alert, oriented x 3 Skin: normal color, warm/dry, no rash Lymphatic: no adenopathy Assessment and Plan 1. NSTEMI - s/p PCI to mid-distal circumflex; Trop peaked. Posterior hypokinesis but LV function grossly preserved 2. Residual LAD disease - intermediate proximal stenosis; additional ischemia assessment at some point, likely as an outpatient. 3. Acute heart failure - improved congestion post diuresis; est RA pressure on echo normal 4. Acute on chronic renal insufficiency - SCr stable presently post procedure and diuresis. 5. HTN -- well controlled on current regimen 6. Possible AF - tele reviewed, suspect AF with RVR, possible sinus tach with PACs and paroxysmal SVT 7. Type 2 DM -- sugars improved. 8. Dyspneic spells - Unclear about reported "panic attacks." Low suspicion due to coronary ischemia although intermittent ST changes on monitoring. ? related to SVT -- On DAPT with ASA/ticagrelor. transition to plavix today, 300mg x 1 now, start 75 tomorrow. -- Continue current metoprolol, current statin -- Continue to monitor on telemetry for now. If more definitive AF would start on coumadin with plan for triple therapy for 1 month than, plavix/coumadin for at least 1 year. -- Stress test as an outpatient. Will continue to follow. Medications: 11/19/16 06:40 Red Blood Count 3.77, Mean Corpuscular Volume 82.2, Mean Corpuscular Hemoglobin 27.1, Mean Corpuscular Hemoglobin Concent 32.9, Mean Platelet Volume 11.2, Neutrophils (%) (Auto) 81.3, Lymphocytes (%) (Auto) 8.3, Monocytes (%) (Auto) 9.5, Eosinophils (%) (Auto) 0.4, Basophils (%) (Auto) 0.2, Neutrophils # (Auto) 8.46, Lymphocytes # (Auto) 0.86, Monocytes # (Auto) 0.99, Eosinophils # (Auto) 0.04, Basophils # (Auto) 0.02 11/19/16 06:40 Test 11/18/16 12:30 11/19/16 06:40 11/19/16 11:27 Prothrombin Time 10.6 SECONDS (9.0-12.0) Prothromb Time International Ratio 1.0 (0.9-1.1) Activated Partial Thromboplast Time 30.6 SECONDS (21.0-31.0) Partial Thromboplastin Ratio 1.2 White Blood Count 10.40 K/uL (4.8-10.8) Red Blood Count 3.77 M/uL (4.2-5.4) Hemoglobin 10.2 g/dL (12.0-16.0) Hematocrit 31.0 % (37-47) Mean Corpuscular Volume 82.2 fL (80-100) Mean Corpuscular Hemoglobin 27.1 pg (25-34) Mean Corpuscular Hemoglobin Concent 32.9 g/dl (32-36) Platelet Count 298 K/uL (130-400) Mean Platelet Volume 11.2 fL (7.4-10.4) Neutrophils (%) (Auto) 81.3 % Lymphocytes (%) (Auto) 8.3 % Monocytes (%) (Auto) 9.5 % Eosinophils (%) (Auto) 0.4 % Basophils (%) (Auto) 0.2 % Neutrophils # (Auto) 8.46 K/uL (1.4-6.5) Lymphocytes # (Auto) 0.86 K/uL (1.2-3.4) Monocytes # (Auto) 0.99 K/uL (0.11-0.59) Eosinophils # (Auto) 0.04 K/uL (0-0.5) Basophils # (Auto) 0.02 K/uL (0-0.2) RDW Standard Deviation 43.0 fL (36.4-46.3) RDW Coefficient of Variation 14.2 % (11.5-14.5) Immature Granulocyte % (Auto) 0.3 % Immature Granulocyte # (Auto) 0.03 K/uL (0.00-0.02) Anion Gap 11.0 mmol/L (3-11) Est Creatinine Clear Calc Drug Dose 17.9 ml/min Estimated GFR () 18.0 Estimated GFR (Non- 15.5 BUN/Creatinine Ratio 10.1 (10-20) Calcium Level 8.9 mg/dl (8.5-10.1) Magnesium Level 2.1 mg/dl (1.8-2.4) Bedside Glucose 183 mg/dl (70-90) Lab Results: Current Inpatient Medications Medications (Trade) Dose Ordered Sig/Dajuan Route Start Time Stop Time Status Last Admin Dose Admin Ondansetron HCl (Zofran Inj) 4 mg Q6H PRN IV 11/17/16 20:15 12/17/16 20:14 Aspirin (Ecotrin Tab) 81 mg QAM PO 11/18/16 09:00 12/18/16 08:59 11/19/16 07:47 81 MG Atorvastatin Calcium (Lipitor Tab) 80 mg QAM PO 11/18/16 09:00 12/18/16 08:59 11/19/16 07:47 80 MG Acetaminophen (Tylenol Tab) 650 mg Q4H PRN PO 11/17/16 20:15 12/17/16 20:14 Ticagrelor (Brilinta Cap) 90 mg BID PO 11/18/16 09:00 12/18/16 08:59 11/19/16 07:46 90 MG Alprazolam (Xanax Tab) 0.25 mg HS PRN PO 11/17/16 20:15 12/17/16 20:14 Escitalopram Oxalate (Lexapro Tab) 10 mg QPM PO 11/17/16 21:00 12/17/16 20:59 11/18/16 20:32 10 MG Gabapentin (Neurontin Cap) 300 mg HS PO 11/17/16 21:00 12/17/16 20:59 11/18/16 20:30 300 MG Pantoprazole Sodium (Protonix Tab) 40 mg QAM PO 11/18/16 09:00 12/18/16 08:59 11/19/16 07:46 40 MG Insulin Glargine (Lantus Solostar Pen) 20 unit QPM SC 11/17/16 21:00 12/17/16 20:59 11/18/16 20:41 20 UNIT Insulin Aspart (novoLOG ASPART) SLIDING SCALE If C... ACHS SC 11/17/16 21:00 11/19/16 12:00 4 UNITS Glucose (Glucose 40% Gel) 15-30 GRAMS 15 GRAMS... UD PRN PO 11/17/16 20:15 12/17/16 20:14 Glucose (Glucose Chew Tab) 4-8 Tablets 4 Tabl... UD PRN PO 11/17/16 20:15 12/17/16 20:14 Dextrose (Dextrose 50% 50ML Syringe) 25-50ML OF 50% DW IV FOR... UD PRN IV 11/17/16 20:15 12/17/16 20:14 Glucagon (Glucagon Inj) 1 mg UD PRN SQ 11/17/16 20:15 12/17/16 20:14 Ipratropium [place] (Atrovent 0.02% 0.5MG/2.5ML Neb) 0.5 mg Q2H PRN INH 11/17/16 23:45 12/17/16 23:44 11/19/16 07:09 0.5 MG Levalbuterol (Xopenex 1.25MG/ 0.5ML Neb) 1.25 mg Q2H PRN INH 11/17/16 23:45 12/17/16 23:44 11/19/16 07:09 1.25 MG Magnesium Oxide (Mag-Ox Tab) 400 mg BID PO 11/18/16 21:00 12/18/16 20:59 11/19/16 07:47 400 MG Heparin Sodium (Porcine) (Heparin Sq 5000 Unit/0.5ml) 5,000 unit Q8 SQ 11/18/16 14:00 12/18/16 13:59 11/19/16 06:38 5,000 UNIT Metoprolol Tartrate (Lopressor Tab) 50 mg Q12 PO 11/18/16 21:00 12/18/16 20:59 11/19/16 07:47 50 MG Insulin Glargine (Lantus Solostar Pen) 15 unit QAM SC 11/19/16 09:00 12/19/16 08:59 11/19/16 07:53 15 UNIT Budesonide/ Formoterol Fumarate (Symbicort 80/ 4.5 Inh) 2 puffs BID INH 11/19/16 09:00 12/19/16 08:59 11/19/16 07:49 2 PUFFS Tiotropium [place] (Spiriva Handihaler Inhaler) 1 puff QAM INH 11/19/16 09:00 12/19/16 08:59 11/19/16 09:00 1 PUFF
[2016-11-19] MEDS ORDERED: POTASSIUM CHLORIDE 10 MEQ TABCR PO ONE (14:17)
[2016-11-19] MEDS ORDERED: ALUMINUM/MAGNESIUM SUSP 30 ML UDC PO PRN (15:00)
[2016-11-19] MEDS ORDERED: ALUMINUM/MAGNESIUM SUSP 30 ML UDC ONE (15:02)
[2016-11-19] MEDS ORDERED: FUROSEMIDE 40 MG/4 ML VIAL IV STA (15:02)
[2016-11-19] MEDS ORDERED: ALUMINUM/MAGNESIUM SUSP 30 ML UDC PO ONE (15:22)
[2016-11-19] MEDS ORDERED: RANITIDINE HCL 150 MG TAB PO ONE (16:00)
[2016-11-19 16:13] LABS: HEMATOCRIT 30.5 % (37-47)
[2016-11-19] MEDS ORDERED: POTASSIUM CHLORIDE 10 MEQ TABCR PO SCH (16:45)
[2016-11-19 16:52] LABS: BUN/CREATININE RATIO 11.2 (10-20); CALCIUM 8.6 mg/dl (8.5-10.1); POTASSIUM 3.2 mmol/L (3.5-5.1)
[2016-11-19] MEDS: ESCITALOPRAM OXALATE 10 MG TAB PO SCH (20:58)
[2016-11-19] MEDS: GABAPENTIN 300 MG CAP PO SCH (20:58)
[2016-11-19] MEDS ORDERED: POTASSIUM CHLORIDE 10 MEQ TABCR PO STA (23:05)
[2016-11-20] VITALS (15 sets, daily range): BP systolic 90–113; BP diastolic 53–69; PULSE 74–110; TEMP 36.5–36.9; O2SAT 50–98
[2016-11-20] MEDS ORDERED: POLYETHYLENE (MIRALAX) 17 GM PACK PO PRN (00:45)
[2016-11-20] MEDS: IPRATROPIUM BROMIDE NEB SOLN 0.02% 2.5 ML VIAL INH PRN ×3 (00:53→06:06)
[2016-11-20] MEDS: LEVALBUTEROL 1.25MG/0.5ML NEB INH PRN ×3 (00:53→06:06)
[2016-11-20] MEDS: HEPARIN SOD 5000 UNIT/0.5 ML CARP SQ SCH ×3 (05:36→20:48)
[2016-11-20 05:40] LABS: HEMATOCRIT 30.7 % (37-47); MEAN CORPUSCULAR HEMOGLOBIN 26.4 pg (25-34); MEAN CORPUSCULAR HGB CONC 32.6 g/dl (32-36); MEAN PLATELET VOLUME 10.8 fL (7.4-10.4); PLATELET COUNT 336 K/uL (130-400); RED BLOOD COUNT 3.79 M/uL (4.2-5.4); WHITE BLOOD COUNT 16.05 K/uL (4.8-10.8)
[2016-11-20 06:04] LABS: BASO % 0.1 %; BASO ABS # 0.02 K/uL (0-0.2); COMPLETE YES; EOS % 0.1 %; IG% 0.6 %; LYMPH % 3.4 %; LYMPH ABS # 0.55 K/uL (1.2-3.4); MONO % 7.5 %; NEUT % 88.3 %
[2016-11-20 06:34] LABS: BUN/CREATININE RATIO 13.6 (10-20); CALCIUM 8.3 mg/dl (8.5-10.1); CREATININE 3.1 mg/dl (0.60-1.20); MAGNESIUM 2.6 mg/dl (1.8-2.4); POTASSIUM 4.3 mmol/L (3.5-5.1)
[2016-11-20] MEDS ORDERED: POTASSIUM CHLORIDE 10 MEQ TABCR PO SCH (07:30)
[2016-11-20] MEDS: BUDESONIDE/FORMOTEROL FUMARATE 80/4.5 60 PUFFS/INHALER INH SCH (07:42)
[2016-11-20] MEDS: TIOTROPIUM BROMIDE 5 PUFF/90 MCG INH INH SCH (07:44)
[2016-11-20] MEDS: ASPIRIN 81 MG ECTAB PO SCH (07:45)
[2016-11-20] MEDS: ATORVASTATIN 40 MG TAB PO SCH (07:45)
[2016-11-20] MEDS: POTASSIUM CHLORIDE 10 MEQ TABCR PO SCH ×2 (07:45→17:33)
[2016-11-20] MEDS: CLOPIDOGREL BISULFATE 75 MG TAB PO SCH (07:46)
[2016-11-20] MEDS: RANITIDINE HCL 150 MG TAB PO SCH (07:46)
[2016-11-20] MEDS: PANTOprazole SOD 40 MG TAB PO SCH ×2 (07:46→20:39)
[2016-11-20] MEDS: MAGNESIUM OXIDE 400 MG TAB PO SCH (07:47)
[2016-11-20] MEDS: METOPROLOL TARTRATE 50 MG TAB PO SCH (07:47)
[2016-11-20] MEDS: INSULIN ASPART 100 UNITS/ML 3 ML PEN SC SCH ×4 (07:52→20:46)
[2016-11-20] MEDS: INSULIN GLARGINE SOLOSTAR 100 UNITS/ML 3 ML PEN SC SCH ×2 (07:53→20:46)
--- NOTE | 2016-11-20 07:56 | DIAGNOSTIC IMAGING REPORT ---
SINGLE VIEW CHEST CLINICAL HISTORY: Dyspnea. FINDINGS: An AP, portable, upright chest radiograph is compared to study dated 11/18/2016 and correlated with chest CT dated 11/17/2016. The examination is degraded by portable technique and patient rotation. The heart is top normal for projection. There is mild atherosclerotic calcification of the thoracic aorta. Pulmonary vascular congestion is observed. There are small pleural effusions, left larger than right. Bibasilar consolidation is noted, and there are additional patchy airspace opacities throughout both lungs. No pneumothorax is seen. The skeletal structures are osteopenic. The bony thorax is grossly intact. IMPRESSION: 1. Findings suggest mild congestive failure. 2. There are small pleural effusions and bibasilar consolidation. Additional airspace opacities are present throughout both lungs. Correlate clinically for evidence of pneumonia versus mild pulmonary edema. Radiographic follow-up to resolution is recommended. Electronically signed by: Piyush Fox M.D. 11/20/2016 7:53 AM Dictated Date/Time: 11/20/2016 7:51 AM
--- NOTE | 2016-11-20 08:49 | Family Medicine Progress Note ---
Progress Note Date of Service Nov 20, 2016. Subjective Pt evaluation today including: conversation w/ patient, physical exam, chart review, lab review, review of studies, review of inpatient medication list Voiding: no voiding problems, no incontinence Overnight she became very short of breath and hypoxic and was started back on regular nebulizers although you would not think it looking at her this morning. She appears very comfortable at rest and is currently in no distress. She reports feeling well this morning but is glad she stayed in hospital due to events overnight. She thinks she may have had a panic attack. Constitutional: No chills, No fever Respiratory: + cough Cardiovascular: No PND, No chest pain, No claudication, No edema, No orthopnea, No palpitations Abdomen: + problem reported (normal BM), No GI bleeding, No constipation, No diarrhea, No nausea, No pain, No vomiting Musculoskeletal: No joint pain, No muscle pain Female : No dysuria, No hematuria, No urinary frequency Heme: No abnormal bleeding/bruising Skin: No itch, No rash All Other Systems: Reviewed and Negative Medications Current Inpatient Medications Medications (Trade) Dose Ordered Sig/Dajuan Route Start Time Stop Time Status Last Admin Dose Admin Ondansetron HCl (Zofran Inj) 4 mg Q6H PRN IV 11/17/16 20:15 12/17/16 20:14 Aspirin (Ecotrin Tab) 81 mg QAM PO 11/18/16 09:00 12/18/16 08:59 11/20/16 07:45 81 MG Atorvastatin Calcium (Lipitor Tab) 80 mg QAM PO 11/18/16 09:00 12/18/16 08:59 11/20/16 07:45 80 MG Acetaminophen (Tylenol Tab) 650 mg Q4H PRN PO 11/17/16 20:15 12/17/16 20:14 Alprazolam (Xanax Tab) 0.25 mg HS PRN PO 11/17/16 20:15 12/17/16 20:14 Escitalopram Oxalate (Lexapro Tab) 10 mg QPM PO 11/17/16 21:00 12/17/16 20:59 11/19/16 20:58 10 MG Gabapentin (Neurontin Cap) 300 mg HS PO 11/17/16 21:00 12/17/16 20:59 11/19/16 20:58 300 MG Insulin Glargine (Lantus Solostar Pen) 20 unit QPM SC 11/17/16 21:00 12/17/16 20:59 11/19/16 20:59 20 UNIT Insulin Aspart (novoLOG ASPART) SLIDING SCALE If C... ACHS SC 11/17/16 21:00 12/17/16 20:59 11/20/16 07:52 6 UNITS Glucose (Glucose 40% Gel) 15-30 GRAMS 15 GRAMS... UD PRN PO 11/17/16 20:15 12/17/16 20:14 Glucose (Glucose Chew Tab) 4-8 Tablets 4 Tabl... UD PRN PO 11/17/16 20:15 12/17/16 20:14 Dextrose (Dextrose 50% 50ML Syringe) 25-50ML OF 50% DW IV FOR... UD PRN IV 11/17/16 20:15 12/17/16 20:14 Glucagon (Glucagon Inj) 1 mg UD PRN SQ 11/17/16 20:15 12/17/16 20:14 Ipratropium [place] (Atrovent 0.02% 0.5MG/2.5ML Neb) 0.5 mg Q2H PRN INH 11/17/16 23:45 12/17/16 23:44 11/20/16 06:06 0.5 MG Levalbuterol (Xopenex 1.25MG/ 0.5ML Neb) 1.25 mg Q2H PRN INH 11/17/16 23:45 12/17/16 23:44 11/20/16 06:06 1.25 MG Magnesium Oxide (Mag-Ox Tab) 400 mg BID PO 11/18/16 21:00 12/18/16 20:59 11/20/16 07:47 400 MG Heparin Sodium (Porcine) (Heparin Sq 5000 Unit/0.5ml) 5,000 unit Q8 SQ 11/18/16 14:00 12/18/16 13:59 11/20/16 05:36 5,000 UNIT Metoprolol Tartrate (Lopressor Tab) 50 mg Q12 PO 11/18/16 21:00 12/18/16 20:59 11/20/16 07:47 50 MG Insulin Glargine (Lantus Solostar Pen) 15 unit QAM SC 11/19/16 09:00 12/19/16 08:59 11/20/16 07:53 15 UNIT Budesonide/ Formoterol Fumarate (Symbicort 80/ 4.5 Inh) 2 puffs BID INH 11/19/16 09:00 12/19/16 08:59 11/20/16 07:42 2 PUFFS Tiotropium [place] (Spiriva Handihaler Inhaler) 1 puff QAM INH 11/19/16 09:00 12/19/16 08:59 11/20/16 07:44 1 PUFF Clopidogrel Bisulfate (plAVix TAB) 75 mg QAM PO 11/20/16 09:00 12/20/16 08:59 11/20/16 07:46 75 MG Pantoprazole Sodium (Protonix Tab) 40 mg BID PO 11/19/16 21:00 12/19/16 20:59 11/20/16 07:46 40 MG Ranitidine HCl (zANTac TAB) 150 mg QAM PO 11/20/16 09:00 12/20/16 08:59 11/20/16 07:46 150 MG Al Hydroxide/Mg Hydroxide (Maalox Susp) 15 ml Q6H PRN PO 11/19/16 15:00 12/19/16 14:59 Polyethylene (Miralax Powder Packet) 17 gm DAILY PRN PO 11/20/16 00:45 12/20/16 00:44 11/20/16 01:44 17 GM Potassium Chloride (Klor-Con M10) 10 meq BIDM PO 11/20/16 07:30 12/20/16 07:29 11/20/16 07:45 10 MEQ Objective Vital Signs Date Time Temp Pulse Resp B/P Pulse Ox O2 Delivery O2 Flow Rate FiO2 11/20/16 06:06 80 20 Nasal Cannula 2.0 96 11/20/16 04:00 Room Air 11/20/16 03:58 36.8 74 18 109/64 98 BiPAP 11/20/16 03:37 74 98 50 11/20/16 03:36 74 26 50 BiPAP/CPAP 98 11/20/16 00:55 94 95 50 11/20/16 00:53 94 26 90 Non-Rebreather 15.0 100 11/20/16 00:29 110 36 92 Non-Rebreather 15.0 11/20/16 00:00 36 88 Nasal Cannula 6.0 11/19/16 23:42 Room Air 11/19/16 23:42 37.7 92 36 111/71 81 Room Air 11/19/16 20:00 Room Air 11/19/16 19:34 37.4 99 22 133/84 91 Room Air 11/19/16 19:20 119 22 90 Room Air 11/19/16 16:30 36.6 86 16 121/69 95 Room Air 11/19/16 16:00 Room Air 11/19/16 14:12 102 92 11/19/16 12:00 Room Air 11/19/16 11:47 36.4 81 18 94/56 96 Room Air Physical Exam General Appearance: WD/WN, no apparent distress Eyes: normal inspection (pupils equal), EOMI Neck: supple Respiratory/Chest: no respiratory distress, no accessory muscle use, + crackles (bibasal, slight increase from yesterday, no wheezing) Cardiovascular: regular rate, rhythm, no murmur (quiet HS) Abdomen: normal bowel sounds, non tender, soft Extremities: no pedal edema, no calf tenderness, normal capillary refill Neurologic/Psychiatric: alert, oriented x 3 Skin: normal color, warm/dry, no rash Laboratory Results 11/20/16 05:15 Red Blood Count 3.79, Mean Corpuscular Volume 81.0, Mean Corpuscular Hemoglobin 26.4, Mean Corpuscular Hemoglobin Concent 32.6, Mean Platelet Volume 10.8, Neutrophils (%) (Auto) 88.3, Lymphocytes (%) (Auto) 3.4, Monocytes (%) (Auto) 7.5, Eosinophils (%) (Auto) 0.1, Basophils (%) (Auto) 0.1, Neutrophils # (Auto) 14.17, Lymphocytes # (Auto) 0.55, Monocytes # (Auto) 1.21, Eosinophils # (Auto) 0.01, Basophils # (Auto) 0.02 11/20/16 05:15 Test 11/20/16 05:15 11/20/16 06:54 11/20/16 08:11 11/20/16 08:19 White Blood Count 16.05 K/uL (4.8-10.8) Red Blood Count 3.79 M/uL (4.2-5.4) Hemoglobin 10.0 g/dL (12.0-16.0) Hematocrit 30.7 % (37-47) Mean Corpuscular Volume 81.0 fL (80-100) Mean Corpuscular Hemoglobin 26.4 pg (25-34) Mean Corpuscular Hemoglobin Concent 32.6 g/dl (32-36) Platelet Count 336 K/uL (130-400) Mean Platelet Volume 10.8 fL (7.4-10.4) Neutrophils (%) (Auto) 88.3 % Lymphocytes (%) (Auto) 3.4 % Monocytes (%) (Auto) 7.5 % Eosinophils (%) (Auto) 0.1 % Basophils (%) (Auto) 0.1 % Neutrophils # (Auto) 14.17 K/uL (1.4-6.5) Lymphocytes # (Auto) 0.55 K/uL (1.2-3.4) Monocytes # (Auto) 1.21 K/uL (0.11-0.59) Eosinophils # (Auto) 0.01 K/uL (0-0.5) Basophils # (Auto) 0.02 K/uL (0-0.2) RDW Standard Deviation 41.6 fL (36.4-46.3) RDW Coefficient of Variation 14.0 % (11.5-14.5) Immature Granulocyte % (Auto) 0.6 % Immature Granulocyte # (Auto) 0.09 K/uL (0.00-0.02) Anion Gap 14.0 mmol/L (3-11) Est Creatinine Clear Calc Drug Dose 16.7 ml/min Estimated GFR () 16.6 Estimated GFR (Non- 14.3 BUN/Creatinine Ratio 13.6 (10-20) Calcium Level 8.3 mg/dl (8.5-10.1) Magnesium Level 2.6 mg/dl (1.8-2.4) Bedside Glucose 262 mg/dl (70-90) Lactic Acid Level 3.0 mmol/L (0.4-2.0) Assessment and Plan 71 yo with acute NSTEMI s/p 2 overlapping drug-eluting stents mid to distal circumflex. CARDIO NSTEMI - ASA, clopidogrel, Atorvastatin 80mg, metoprolol, not on ACEi due to DEMETRA. Appreciate cardiology recommendations, stress echo as outpatient planned Tachycardia episodes - A fib vs. sinus tachy + PACs, no recurrence last night - replace potassium, aim >4.0. Monitor K and Mg. Will cut back on potassium supplementation due to acidosis; potassium will rise as this corrects. - continue to monitor on telemetry, stat EKG if goes back into rhythm as may need warfarin. Acute heart failure with preserved ejection fraction (LVEF 50-55% on formal echo ) - pulmonary edema s/p cath due to IVF to reduce risk of contrast nephropathy - Weight increased today and +ve 70ml with reduced urine output. Will likely need some Lasix but will be guided by nephrology - daily weights, I&Os - up titrate BB (may have to cut back if using lasix), no ACEi as above Respiratory Acute hypoxic respiratory failure - last night with increased work of breathing and sats 81%; COPD exacerbation with concurrent pneumonia as above vs. pulmonary edema vs. panic attack - aim O2 88-92% COPD - increase Symbicort to 160/45 2 puffs BID due to episode last night. Added Spiriva. - restarted on regular Q6H nebulizers - hold off on steroids as looking well this morning, no wheezing and is glucose control is patchy - use incentive spirometry Nephrology Acute kidney injury on Chronic kidney disease stage 4 - UO good - rising Cr, will consult her aromatherapist Dr Oliver - UA + micro +/- culture Hyponatremia - high glucose levels therefore corrected sodium is higher but trend is down - probably heart failure vs. DEMETRA related, will consult nephrology as above to discuss diuresis in setting of DEMETRA on CKD - Urine Na and Cr to work out FEN - Serum/urine osm Gastrointestinal Peptic ulcer disease / GERD - recurrence of heartburn this admission and previous GI intolerance to aspirin. Omeprazole switched to pantoprazole as per formulary. Added ranitidine. Endocrinology T2DM - Novolog aim 140-180, correction 30, carb coverage 9 - will continue from these settings from previously - continue increased basal home dose lantus 15 units QAM, 20 units QPM - diabetes education - diabetic, renal, heart healthy, low sodium diet Diabetic neuropathy - Continue gabapentin Infectious Disease Suspected pneumonia - she does not appear toxic despite elevated lactic acid. CXR findings show possible pneumonia vs. pulmonary edema - Lactic acid 3.0. Procalcitonin pending - Will consider treatment for HAP pending procalcitonin. Miscellaneous Smoking - smoking cessation information on d/c - discussed importance of stopping by different providers on numerous occasions - consider Wellbutrin O/P - denies cravings and refuses nicotine patch Anxiety -Continue Lexapro 10 mg VTE Prophylaxis - Heparin SQ 5000 units TID Code - Full Disposition - Given possible A fib she will remain on tele to assess for further episodes. Will also monitor renal function. Resident Physician Supervision Note: I interviewed and examined the patient. Discussed with Dr. Duke and agree with findings and plan as documented in the note. Any exceptions or clarifications are listed here: None Documented By: Chepe Camarillo was sob through the night better now. no new complaints otherwise, ros otherwise negative except for as above vitals noted nad lungs faint basilar rales no respiratory distress no accessory muscles HAP - stat MRSA nares, if (+) then gram positive coverage; otherwise levaquin. follow CKD w DEMETRA/ARF - not getting better. may be due to AL, diuresis necessary in regards to CHF, and now pneumonia - but agree w nephrology consult NSTEMI, acute systolic CHF - fortunately overall stable. rales but no distress DVT proph - heparin SQ Resident Tracking Resident Involvement: Resident Care Provided Care Provided: Adult Hospital Medicine
[2016-11-20 09:58] LABS: URINE APPEARANCE CLEAR (CLEAR); URINE BILIRUBIN NEG (NEG); URINE COLOR YELLOW; URINE EPITHELIAL CELL AUTO >30 /lpf (0-5); URINE NITRITE NEG (NEG); URINE PH 5.5 (4.5-7.5); URINE SPECIFIC GRAVITY 1.011 (1.000-1.030); UROBILINOGEN NEG (NEG); ZZUR CULT IF INDIC CLEAN CATCH YES
[2016-11-20 10:12] LABS: MANUAL MICROSCOPIC REQUIRED? NO; REVIEW REQ? YES
[2016-11-20] MEDS ORDERED: LEVOFLOXACIN 750 MG TAB PO ONE ×2 (11:30→12:30)
--- NOTE | 2016-11-20 12:09 | Nephrology Consultation ---
Nephrology Consultation Date & Providers Date of Consultation: Nov 20, 2016. Primary Care Provider: Sanchez Barroso M.D. Referring Provider: Reason for Consultation Evaluation of acute on chronic kidney injury History of Present Illness Mrs. Chappell is a 71 year old white female who is seen at the request of Dr. New for evaluation of acute on chronic kidney injury. Medical records in the hospital and office EMR were reviewed today and are summarized as follows : Mrs. Chappell has stage IV CKD. Her baseline creatinine has been 2.0 - 2.4 w / EGFR 24 cc/min. Her renal impairment is due to diabetic nephropathy, hypertensive nephrosclerosis and microvascular disease. Her medical history is also significant for AODM w/ retinopathy, HTN, hyperlipidemia and PAD. Mrs. Chappell presented to [facility] ED 11/17/16 for evaluation of chest pain. She was diagnosed w/ NSTEMI and underwent emergency cardiac catheterization. She required two drug eluting stents to the circumflex artery. Postprocedure she suffered one episode of CHF that responded to IV diuretic therapy. She remains nonoliguric. Her serum creatinine has risen to 3.1. Past Medical/Surgical History Medical: # Stage IV CKD. Baseline creatinine 2.0 - 2.4 # AODM w/ retinopathy # HTN # COPD # Chronic back pain d/t arthritis - required steroid injections in the past # Hyperlipidemia # PAD Allergies Coded Allergies: No Known Allergies (Verified , 11/17/16) Inpatient Medications Current Inpatient Medications Medications (Trade) Dose Ordered Sig/Dajuan Route Start Time Stop Time Status Last Admin Dose Admin Ondansetron HCl (Zofran Inj) 4 mg Q6H PRN IV 11/17/16 20:15 12/17/16 20:14 Aspirin (Ecotrin Tab) 81 mg QAM PO 11/18/16 09:00 12/18/16 08:59 11/20/16 07:45 81 MG Atorvastatin Calcium (Lipitor Tab) 80 mg QAM PO 11/18/16 09:00 12/18/16 08:59 11/20/16 07:45 80 MG Acetaminophen (Tylenol Tab) 650 mg Q4H PRN PO 11/17/16 20:15 12/17/16 20:14 Alprazolam (Xanax Tab) 0.25 mg HS PRN PO 11/17/16 20:15 12/17/16 20:14 Escitalopram Oxalate (Lexapro Tab) 10 mg QPM PO 11/17/16 21:00 12/17/16 20:59 11/19/16 20:58 10 MG Gabapentin (Neurontin Cap) 300 mg HS PO 11/17/16 21:00 12/17/16 20:59 11/19/16 20:58 300 MG Insulin Glargine (Lantus Solostar Pen) 20 unit QPM SC 11/17/16 21:00 12/17/16 20:59 11/19/16 20:59 20 UNIT Insulin Aspart (novoLOG ASPART) SLIDING SCALE If C... ACHS SC 11/17/16 21:00 12/17/16 20:59 11/20/16 07:52 6 UNITS Glucose (Glucose 40% Gel) 15-30 GRAMS 15 GRAMS... UD PRN PO 11/17/16 20:15 12/17/16 20:14 Glucose (Glucose Chew Tab) 4-8 Tablets 4 Tabl... UD PRN PO 11/17/16 20:15 12/17/16 20:14 Dextrose (Dextrose 50% 50ML Syringe) 25-50ML OF 50% DW IV FOR... UD PRN IV 11/17/16 20:15 12/17/16 20:14 Glucagon (Glucagon Inj) 1 mg UD PRN SQ 11/17/16 20:15 12/17/16 20:14 Ipratropium [place] (Atrovent 0.02% 0.5MG/2.5ML Neb) 0.5 mg Q2H PRN INH 11/17/16 23:45 12/17/16 23:44 11/20/16 06:06 0.5 MG Levalbuterol (Xopenex 1.25MG/ 0.5ML Neb) 1.25 mg Q2H PRN INH 11/17/16 23:45 12/17/16 23:44 11/20/16 06:06 1.25 MG Magnesium Oxide (Mag-Ox Tab) 400 mg BID PO 11/18/16 21:00 12/18/16 20:59 11/20/16 07:47 400 MG Heparin Sodium (Porcine) (Heparin Sq 5000 Unit/0.5ml) 5,000 unit Q8 SQ 11/18/16 14:00 12/18/16 13:59 11/20/16 05:36 5,000 UNIT Metoprolol Tartrate (Lopressor Tab) 50 mg Q12 PO 11/18/16 21:00 12/18/16 20:59 11/20/16 07:47 50 MG Insulin Glargine (Lantus Solostar Pen) 15 unit QAM SC 11/19/16 09:00 12/19/16 08:59 11/20/16 07:53 15 UNIT Tiotropium [place] (Spiriva Handihaler Inhaler) 1 puff QAM INH 11/19/16 09:00 12/19/16 08:59 11/20/16 07:44 1 PUFF Clopidogrel Bisulfate (plAVix TAB) 75 mg QAM PO 11/20/16 09:00 12/20/16 08:59 11/20/16 07:46 75 MG Pantoprazole Sodium (Protonix Tab) 40 mg BID PO 11/19/16 21:00 12/19/16 20:59 11/20/16 07:46 40 MG Ranitidine HCl (zANTac TAB) 150 mg QAM PO 11/20/16 09:00 12/20/16 08:59 11/20/16 07:46 150 MG Al Hydroxide/Mg Hydroxide (Maalox Susp) 15 ml Q6H PRN PO 11/19/16 15:00 12/19/16 14:59 Polyethylene (Miralax Powder Packet) 17 gm DAILY PRN PO 11/20/16 00:45 12/20/16 00:44 11/20/16 01:44 17 GM Potassium Chloride (Klor-Con M10) 10 meq BIDM PO 11/20/16 07:30 12/20/16 07:29 11/20/16 07:45 10 MEQ Budesonide/ Formoterol Fumarate (Symbicort 160/ 4.5 Inh) 2 puffs BID INH 11/20/16 21:00 12/20/16 20:59 Levofloxacin (Levaquin Tab) 750 mg DAILY@11 PO 11/20/16 11:00 11/27/16 10:59 UNV Family History Diabetes mellitus FH: gallbladder disease FH: heart disease FH: lung disease FHx: cancer Hypertension Negative for CKD / ESRD Social History Smoking Status: Current Every Day Smoker Drug Use: none Marital Status: Occupation: retired . Retired. Current smoker Review of Systems Constitutional: No fever Respiratory: No cough Cardiovascular: No chest pain Abdomen: No nausea, No pain, No vomiting A complete review of systems was performed. Pertinent positives are noted above. All other systems are negative. Physical Exam Date Time Temp Pulse Resp B/P Pulse Ox O2 Delivery O2 Flow Rate FiO2 11/20/16 08:55 36.8 81 20 105/63 94 Nasal Cannula 2.0 11/20/16 08:00 Room Air 11/20/16 06:06 80 20 Nasal Cannula 2.0 96 11/20/16 04:00 Room Air 11/20/16 03:58 36.8 74 18 109/64 98 BiPAP 11/20/16 03:37 74 98 50 11/20/16 03:36 74 26 50 BiPAP/CPAP 98 11/20/16 00:55 94 95 50 11/20/16 00:53 94 26 90 Non-Rebreather 15.0 100 11/20/16 00:29 110 36 92 Non-Rebreather 15.0 11/20/16 00:00 36 88 Nasal Cannula 6.0 11/19/16 23:42 Room Air 11/19/16 23:42 37.7 92 36 111/71 81 Room Air 11/19/16 20:00 Room Air 11/19/16 19:34 37.4 99 22 133/84 91 Room Air 11/19/16 19:20 119 22 90 Room Air 11/19/16 16:30 36.6 86 16 121/69 95 Room Air 11/19/16 16:00 Room Air 11/19/16 14:12 102 92 11/19/16 12:00 Room Air 11/19/16 11:47 36.4 81 18 94/56 96 Room Air General Appearance: no apparent distress Head: atraumatic, + pertinent finding (temporal muscle wasting) Eyes: PERRL, EOMI Neck: no adenopathy Respiratory/Chest: lungs clear (anteriorly) Cardiovascular: regular rate, rhythm Abdomen/GI: normal bowel sounds, non tender, soft Genitourinary - Female: + pertinent finding (hodges catheter in place draining clear yellow urine) Extremities/Musculoskelatal: no calf tenderness, no pedal edema Neurologic/Psych: alert, oriented x 3 Laboratory Results Last 24 Hours Test 11/19/16 16:03 11/19/16 16:10 11/19/16 20:38 11/20/16 05:15 Hemoglobin 9.8 g/dL 10.0 g/dL Hematocrit 30.5 % 30.7 % Sodium Level 127 mmol/L 128 mmol/L Potassium Level 3.2 mmol/L 4.3 mmol/L Chloride Level 93 mmol/L 96 mmol/L Carbon Dioxide Level 20 mmol/L 18 mmol/L Anion Gap 14.0 mmol/L 14.0 mmol/L Blood Urea Nitrogen 34 mg/dl 42 mg/dl Creatinine 3.00 mg/dl 3.10 mg/dl Est Creatinine Clear Calc Drug Dose 17.3 ml/min 16.7 ml/min Estimated GFR () 17.3 16.6 Estimated GFR (Non- 14.9 14.3 BUN/Creatinine Ratio 11.2 13.6 Random Glucose 210 mg/dl 251 mg/dl Calcium Level 8.6 mg/dl 8.3 mg/dl Bedside Glucose 240 mg/dl 174 mg/dl White Blood Count 16.05 K/uL Red Blood Count 3.79 M/uL Mean Corpuscular Volume 81.0 fL Mean Corpuscular Hemoglobin 26.4 pg Mean Corpuscular Hemoglobin Concent 32.6 g/dl Platelet Count 336 K/uL Mean Platelet Volume 10.8 fL Neutrophils (%) (Auto) 88.3 % Lymphocytes (%) (Auto) 3.4 % Monocytes (%) (Auto) 7.5 % Eosinophils (%) (Auto) 0.1 % Basophils (%) (Auto) 0.1 % Neutrophils # (Auto) 14.17 K/uL Lymphocytes # (Auto) 0.55 K/uL Monocytes # (Auto) 1.21 K/uL Eosinophils # (Auto) 0.01 K/uL Basophils # (Auto) 0.02 K/uL RDW Standard Deviation 41.6 fL RDW Coefficient of Variation 14.0 % Immature Granulocyte % (Auto) 0.6 % Immature Granulocyte # (Auto) 0.09 K/uL Magnesium Level 2.6 mg/dl Test 11/20/16 06:54 11/20/16 08:11 11/20/16 09:30 11/20/16 10:51 Bedside Glucose 262 mg/dl 215 mg/dl Osmolality 281 mOsm/kg Lactic Acid Level 3.0 mmol/L Procalcitonin 4.32 ng/ml Urine Color YELLOW Urine Appearance CLEAR Urine pH 5.5 Urine Specific [place] 1.011 Urine Protein TRACE Urine Glucose (UA) NEG Urine Ketones NEG Urine Occult Blood 1+ Urine Nitrite NEG Urine Bilirubin NEG Urine Urobilinogen NEG Urine Leukocyte Esterase SMALL Urine WBC (Auto) 10-30 /hpf Urine RBC (Auto) 0-4 /hpf Urine Hyaline Casts (Auto) 0 /lpf Urine Epithelial Cells (Auto) >30 /lpf Urine Bacteria (Auto) 1+ Urine Yeast (Auto) Urine Osmolality 252 mOms/kg Urine Random Creatinine 73.0 mg/dl Urine Random Sodium 9 mEq/L Impression (1) ARF (acute renal failure) (2) Chronic kidney disease (3) NSTEMI (non-ST elevated myocardial infarction) (4) Diabetes (5) COPD (chronic obstructive pulmonary disease) Patient admitted to [facility] w/ NSTEMI requiring cardiac catheterization and drug eluting stent x 2 of the left circumflex artery. Post procedure she has had episodes of SVT and CHF. She has responded to IV diuretic therapy. Serum creatinine has risen to 3.1 and patient has developed hyponatremia and metabolic acidosis. Recommendations ACUTE KIDNEY INJURY: -- Although urine sediment did not show casts, patient likely has an element of ATN / contrast induced nephropathy -- FENa > 2 % -- Will consider renal US only if kidney function fails to stabilize METABOLIC ACIDOSIS: -- Start NaHCO3 650 mg po BID HYPONATREMIA: -- Patient has mild volume overload. Will provide low dose loop diuretic -- Monitor serial PRP
[2016-11-20] MEDS ORDERED: FUROSEMIDE INJ 20 MG in SYRINGE 0 ML IV SCH (12:31)
[2016-11-20] MEDS ORDERED: SODIUM BICARBONATE 650 MG TAB PO ONE (12:31)
[2016-11-20 16:45] LABS: BUN/CREATININE RATIO 15.5 (10-20); CALCIUM 8.3 mg/dl (8.5-10.1); CREATININE 3.2 mg/dl (0.60-1.20); POTASSIUM 4.2 mmol/L (3.5-5.1)
[2016-11-20 20:33] LABS: ARTERIAL BLD GAS O2 SATURATION 89.9 % (90-95); ARTERIAL BLOOD GAS BASE EXCESS -6.5 mEq/L (-9-1.8); ARTERIAL BLOOD GAS HCO3 17 mmol/L (19-24); ARTERIAL BLOOD GAS PO2 61 mm/Hg (80-95); ARTERIAL BLOOD GAS pH 7.42 (7.35-7.45)
[2016-11-20 20:34] LABS: ALLEN TEST POS (POS); O2 ADMINISTRATION room air
[2016-11-20] MEDS: ESCITALOPRAM OXALATE 10 MG TAB PO SCH (20:38)
[2016-11-20] MEDS: GABAPENTIN 300 MG CAP PO SCH (20:38)
[2016-11-20] MEDS: METOPROLOL TARTRATE 25 MG TAB PO SCH (20:40)
[2016-11-20] MEDS: BUDESONIDE/FORMOTEROL FUMARATE 160/4.5 60 PUFFS/INHALER INH SCH (20:41)
[2016-11-20] MEDS: SODIUM BICARBONATE 650 MG TAB PO SCH (20:42)
[2016-11-21] VITALS (10 sets, daily range): BP systolic 98–114; BP diastolic 57–71; PULSE 71–87; TEMP 36.5–37.1; O2SAT 91–98
[2016-11-21] MEDS: IPRATROPIUM BROMIDE NEB SOLN 0.02% 2.5 ML VIAL INH PRN (02:05)
[2016-11-21] MEDS: LEVALBUTEROL 1.25MG/0.5ML NEB INH PRN (02:05)
[2016-11-21 05:24] LABS: BASO % 0.1 %; BASO ABS # 0.01 K/uL (0-0.2); EOS % 0.7 %; HEMATOCRIT 27.2 % (37-47); IG% 0.5 %; MEAN CELL VOLUME 80.2 fL (80-100); MEAN CORPUSCULAR HEMOGLOBIN 26.3 pg (25-34); MEAN CORPUSCULAR HGB CONC 32.7 g/dl (32-36); MEAN PLATELET VOLUME 10.2 fL (7.4-10.4); MONO % 8.1 %; NEUT % 86.6 %; PLATELET COUNT 318 K/uL (130-400); RED BLOOD COUNT 3.39 M/uL (4.2-5.4); WHITE BLOOD COUNT 14.82 K/uL (4.8-10.8)
[2016-11-21] MEDS: HEPARIN SOD 5000 UNIT/0.5 ML CARP SQ SCH ×3 (05:44→20:36)
[2016-11-21 05:52] LABS: COMPLETE YES
[2016-11-21 05:53] LABS: BUN/CREATININE RATIO 16.5 (10-20); CALCIUM 8.4 mg/dl (8.5-10.1); CREATININE 3.1 mg/dl (0.60-1.20); POTASSIUM 4.1 mmol/L (3.5-5.1)
[2016-11-21] MEDS: BUDESONIDE/FORMOTEROL FUMARATE 160/4.5 60 PUFFS/INHALER INH SCH ×2 (08:23→20:31)
[2016-11-21] MEDS: TIOTROPIUM BROMIDE 5 PUFF/90 MCG INH INH SCH (08:23)
[2016-11-21] MEDS: ATORVASTATIN 40 MG TAB PO SCH (08:25)
[2016-11-21] MEDS: CLOPIDOGREL BISULFATE 75 MG TAB PO SCH (08:25)
[2016-11-21] MEDS: MAGNESIUM OXIDE 400 MG TAB PO SCH (08:25)
[2016-11-21] MEDS: ASPIRIN 81 MG ECTAB PO SCH (08:25)
[2016-11-21] MEDS: METOPROLOL TARTRATE 25 MG TAB PO SCH ×2 (08:25→20:32)
[2016-11-21] MEDS: PANTOprazole SOD 40 MG TAB PO SCH ×2 (08:26→20:34)
[2016-11-21] MEDS: RANITIDINE HCL 150 MG TAB PO SCH ×2 (08:26→20:34)
[2016-11-21] MEDS: INSULIN GLARGINE SOLOSTAR 100 UNITS/ML 3 ML PEN SC SCH ×2 (08:30→20:36)
[2016-11-21] MEDS: INSULIN ASPART 100 UNITS/ML 3 ML PEN SC SCH ×4 (08:30→20:38)
[2016-11-21] MEDS ORDERED: COUGH DROP (SUGAR FREE) LOZ 24 LOZ/1 BOX ONE (08:43)
[2016-11-21] MEDS ORDERED: FUROSEMIDE INJ 20 MG in SYRINGE 0 ML IV SCH (09:00)
--- NOTE | 2016-11-21 10:20 | Nephrology Progress Note ---
Nephrology Progress Note Date of Service Nov 21, 2016. Chief Complaint Evaluation of acute on chronic kidney injury Subjective Mrs. Chappell was seen & examined in the PCU this morning. She was sitting up in a chair breathing comfortably on O2 at 2 L / min NC. She denies any chest pain overnight. She complains of fatigue and reports that she needed several "breathing treatments" overnight. Review of Systems Constitutional: No fever Cardiovascular: No chest pain Respiratory: No dyspnea at rest Abdomen: No nausea, No pain Extremities: No leg edema A complete review of systems was performed. Pertinent positives are noted above. All other systems are negative. Vital Signs Last 8 Hrs Date Time Temp Pulse Resp B/P Pulse Ox O2 Delivery O2 Flow Rate FiO2 11/21/16 08:30 37.1 82 20 113/66 96 Nasal Cannula 2.0 11/21/16 08:00 Room Air 11/21/16 04:12 37.0 82 18 112/65 94 Nasal Cannula 11/21/16 04:00 93 Nasal Cannula 2.0 I & O 24-Hour Column 11/21/16 08:00 Intake Total 120 ml Output Total 400 ml Balance -280 ml Last Recorded Weight Weight (Kilograms): 75.300 Physical Exam General Appearance: no apparent distress Head: normocephalic Eyes: PERRL, EOMI Neck: no adenopathy Respiratory/Chest: + crackles (at bases bilaterally) Cardiovascular: regular rate, rhythm Abdomen/GI: normal bowel sounds, non tender, soft Extremities/Musculoskelatal: no pedal edema Neurologic/Psych: alert, oriented x 3 Family History Diabetes mellitus FH: gallbladder disease FH: heart disease FH: lung disease FHx: cancer Hypertension Negative for CKD / ESRD Social History Drug Use: none Marital Status: Occupation: retired . Retired. Current smoker Laboratory Results Past 24 Hours 11/21/16 05:15 Red Blood Count 3.39, Mean Corpuscular Volume 80.2, Mean Corpuscular Hemoglobin 26.3, Mean Corpuscular Hemoglobin Concent 32.7, Mean Platelet Volume 10.2, Neutrophils (%) (Auto) 86.6, Lymphocytes (%) (Auto) 4.0, Monocytes (%) (Auto) 8.1, Eosinophils (%) (Auto) 0.7, Basophils (%) (Auto) 0.1, Neutrophils # (Auto) 12.82, Lymphocytes # (Auto) 0.60, Monocytes # (Auto) 1.20, Eosinophils # (Auto) 0.11, Basophils # (Auto) 0.01 11/20/16 15:55 11/20/16 19:14 11/21/16 05:15 Test 11/20/16 10:51 11/20/16 15:55 11/20/16 16:15 11/20/16 20:18 Bedside Glucose 215 mg/dl (70-90) 144 mg/dl (70-90) Anion Gap 10.0 mmol/L (3-11) Est Creatinine Clear Calc Drug Dose 16.3 ml/min Estimated GFR () 16.0 Estimated GFR (Non- 13.8 BUN/Creatinine Ratio 15.5 (10-20) Calcium Level 8.3 mg/dl (8.5-10.1) Arterial Blood pH 7.42 (7.35-7.45) Arterial Blood Partial Pressure CO2 26 mmHg (35-46) Arterial Blood Partial Pressure O2 61 mm/Hg (80-95) Arterial Blood HCO3 17 mmol/L (19-24) Arterial Blood Oxygen Saturation 89.9 % (90-95) Arterial Blood Base Excess -6.5 mEq/L (-9-1.8) Arterial Blood Gas Delivery room air Km Test POS (POS) Test 11/20/16 20:30 11/20/16 20:31 11/21/16 05:15 11/21/16 06:45 Bedside Glucose 258 mg/dl (70-90) 243 mg/dl (70-90) 177 mg/dl (70-90) White Blood Count 14.82 K/uL (4.8-10.8) Red Blood Count 3.39 M/uL (4.2-5.4) Hemoglobin 8.9 g/dL (12.0-16.0) Hematocrit 27.2 % (37-47) Mean Corpuscular Volume 80.2 fL (80-100) Mean Corpuscular Hemoglobin 26.3 pg (25-34) Mean Corpuscular Hemoglobin Concent 32.7 g/dl (32-36) Platelet Count 318 K/uL (130-400) Mean Platelet Volume 10.2 fL (7.4-10.4) Neutrophils (%) (Auto) 86.6 % Lymphocytes (%) (Auto) 4.0 % Monocytes (%) (Auto) 8.1 % Eosinophils (%) (Auto) 0.7 % Basophils (%) (Auto) 0.1 % Neutrophils # (Auto) 12.82 K/uL (1.4-6.5) Lymphocytes # (Auto) 0.60 K/uL (1.2-3.4) Monocytes # (Auto) 1.20 K/uL (0.11-0.59) Eosinophils # (Auto) 0.11 K/uL (0-0.5) Basophils # (Auto) 0.01 K/uL (0-0.2) RDW Standard Deviation 40.5 fL (36.4-46.3) RDW Coefficient of Variation 13.8 % (11.5-14.5) Immature Granulocyte % (Auto) 0.5 % Immature Granulocyte # (Auto) 0.08 K/uL (0.00-0.02) Red Blood Cell Morphology Unremarkable Anion Gap 13.0 mmol/L (3-11) Est Creatinine Clear Calc Drug Dose 16.8 ml/min Estimated GFR () 16.6 Estimated GFR (Non- 14.3 BUN/Creatinine Ratio 16.5 (10-20) Lactic Acid Level 0.9 mmol/L (0.4-2.0) Calcium Level 8.4 mg/dl (8.5-10.1) Date/Time Source Procedure Growth Status 11/20/16 11:00 Nasal MRSA DNA Surveillance Screen - Final Specimen Negative for MRSA by DNA Probe Complete Allergies Coded Allergies: No Known Allergies (Verified , 11/17/16) Medications Current Inpatient Medications Medications (Trade) Dose Ordered Sig/Dajuan Route Start Time Stop Time Status Last Admin Dose Admin Ondansetron HCl (Zofran Inj) 4 mg Q6H PRN IV 11/17/16 20:15 12/17/16 20:14 Aspirin (Ecotrin Tab) 81 mg QAM PO 11/18/16 09:00 12/18/16 08:59 11/21/16 08:25 81 MG Atorvastatin Calcium (Lipitor Tab) 80 mg QAM PO 11/18/16 09:00 12/18/16 08:59 11/21/16 08:25 80 MG Acetaminophen (Tylenol Tab) 650 mg Q4H PRN PO 4/17/17 20:15 12/17/16 20:14 Alprazolam (Xanax Tab) 0.25 mg HS PRN PO 11/17/16 20:15 12/17/16 20:14 Escitalopram Oxalate (Lexapro Tab) 10 mg QPM PO 11/17/16 21:00 12/17/16 20:59 11/20/16 20:38 10 MG Gabapentin (Neurontin Cap) 300 mg HS PO 11/17/16 21:00 12/17/16 20:59 11/20/16 20:38 300 MG Insulin Glargine (Lantus Solostar Pen) 20 unit QPM SC 11/17/16 21:00 12/17/16 20:59 11/20/16 20:46 20 UNIT Insulin Aspart (novoLOG ASPART) SLIDING SCALE If C... ACHS SC 11/17/16 21:00 12/17/16 20:59 11/21/16 08:30 4 UNITS Glucose (Glucose 40% Gel) 15-30 GRAMS 15 GRAMS... UD PRN PO 11/17/16 20:15 12/17/16 20:14 Glucose (Glucose Chew Tab) 4-8 Tablets 4 Tabl... UD PRN PO 11/17/16 20:15 12/17/16 20:14 Dextrose (Dextrose 50% 50ML Syringe) 25-50ML OF 50% DW IV FOR... UD PRN IV 11/17/16 20:15 12/17/16 20:14 Glucagon (Glucagon Inj) 1 mg UD PRN SQ 11/17/16 20:15 12/17/16 20:14 Ipratropium [place] (Atrovent 0.02% 0.5MG/2.5ML Neb) 0.5 mg Q2H PRN INH 11/17/16 23:45 12/17/16 23:44 11/21/16 02:05 0.5 MG Levalbuterol (Xopenex 1.25MG/ 0.5ML Neb) 1.25 mg Q2H PRN INH 11/17/16 23:45 12/17/16 23:44 11/21/16 02:05 1.25 MG Heparin Sodium (Porcine) (Heparin Sq 5000 Unit/0.5ml) 5,000 unit Q8 SQ 11/18/16 14:00 12/18/16 13:59 11/21/16 05:44 5,000 UNIT Insulin Glargine (Lantus Solostar Pen) 15 unit QAM SC 11/19/16 09:00 12/19/16 08:59 11/21/16 08:30 15 UNIT Tiotropium [place] (Spiriva Handihaler Inhaler) 1 puff QAM INH 11/19/16 09:00 12/19/16 08:59 11/21/16 08:23 1 PUFF Clopidogrel Bisulfate (plAVix TAB) 75 mg QAM PO 11/20/16 09:00 12/20/16 08:59 11/21/16 08:25 75 MG Pantoprazole Sodium (Protonix Tab) 40 mg BID PO 11/19/16 21:00 12/19/16 20:59 11/21/16 08:26 40 MG Ranitidine HCl (zANTac TAB) 150 mg QAM PO 11/20/16 09:00 12/20/16 08:59 11/21/16 08:26 150 MG Al Hydroxide/Mg Hydroxide (Maalox Susp) 15 ml Q6H PRN PO 11/19/16 15:00 12/19/16 14:59 Polyethylene (Miralax Powder Packet) 17 gm DAILY PRN PO 11/20/16 00:45 12/20/16 00:44 11/20/16 01:44 17 GM Budesonide/ Formoterol Fumarate (Symbicort 160/ 4.5 Inh) 2 puffs BID INH 11/20/16 21:00 12/20/16 20:59 11/21/16 08:23 2 PUFFS Levofloxacin 500 mg 500 mg Q48H PO 11/22/16 11:00 11/27/16 10:59 Furosemide/Syringe (Lasix Inj/ Syringe) 2 ml @ 4 mls/min QAM IV 11/21/16 09:00 12/21/16 08:59 11/21/16 08:25 4 MLS/MIN Sodium Bicarbonate (Sodium Bicarbonate Tab) 650 mg BID PO 11/20/16 21:00 12/20/16 20:59 11/20/16 20:42 650 MG Metoprolol Tartrate (Lopressor Tab) 25 mg Q12 PO 11/20/16 21:00 12/20/16 20:59 11/21/16 08:25 25 MG Magnesium Oxide (Mag-Ox Tab) 400 mg DAILY PO 11/21/16 09:00 12/21/16 08:59 11/21/16 08:25 400 MG Impression (1) ARF (acute renal failure) (2) Chronic kidney disease (3) NSTEMI (non-ST elevated myocardial infarction) (4) Diabetes (5) COPD (chronic obstructive pulmonary disease) Patient admitted to [facility] w/ NSTEMI requiring cardiac catheterization and drug eluting stent x 2 of the left circumflex artery. Post procedure she has had episodes of SVT and CHF. She has responded to IV diuretic therapy. Serum creatinine has risen to 3.1 and patient has developed hyponatremia and metabolic acidosis. Recommendations ACUTE KIDNEY INJURY: -- Although urine sediment did not show casts, patient likely has an element of ATN / contrast induced nephropathy -- FENa > 2 % -- Creatinine is mildly improved this morning. Patient appears to be entering the recovery phase of ATN. METABOLIC ACIDOSIS: -- Continue NaHCO3 650 mg po BID HYPONATREMIA: -- Patient has mild volume overload. CXR shows mild pulmonary congestion -- Will increase Furosemide to 20 mg IV BID, monitor UO, kidney function and electrolytes CHF: -- Diuretic adjusted as above -- Will obtain follow up CXR in am
--- NOTE | 2016-11-21 12:01 | Family Medicine Progress Note ---
Progress Note Date of Service Nov 21, 2016. Subjective Pt evaluation today including: conversation w/ patient, physical exam, chart review, lab review, review of studies, review of inpatient medication list Voiding: no voiding problems, no incontinence Reports being short of breath when walking to the toilet last night but otherwise feels like she is improving. No shortness of breath or chest pain at rest this morning. She denies any fevers or chills. All Other Systems: Reviewed and Negative Medications Current Inpatient Medications Medications (Trade) Dose Ordered Sig/Dajuan Route Start Time Stop Time Status Last Admin Dose Admin Ondansetron HCl (Zofran Inj) 4 mg Q6H PRN IV 11/17/16 20:15 12/17/16 20:14 Aspirin (Ecotrin Tab) 81 mg QAM PO 11/18/16 09:00 12/18/16 08:59 11/21/16 08:25 81 MG Atorvastatin Calcium (Lipitor Tab) 80 mg QAM PO 11/18/16 09:00 12/18/16 08:59 11/21/16 08:25 80 MG Acetaminophen (Tylenol Tab) 650 mg Q4H PRN PO 11/17/16 20:15 12/17/16 20:14 Alprazolam (Xanax Tab) 0.25 mg HS PRN PO 11/17/16 20:15 12/17/16 20:14 Escitalopram Oxalate (Lexapro Tab) 10 mg QPM PO 11/17/16 21:00 12/17/16 20:59 11/20/16 20:38 10 MG Gabapentin (Neurontin Cap) 300 mg HS PO 11/17/16 21:00 12/17/16 20:59 11/20/16 20:38 300 MG Insulin Glargine (Lantus Solostar Pen) 20 unit QPM SC 11/17/16 21:00 12/17/16 20:59 11/20/16 20:46 20 UNIT Insulin Aspart (novoLOG ASPART) SLIDING SCALE If C... ACHS SC 11/17/16 21:00 12/17/16 20:59 11/21/16 08:30 4 UNITS Glucose (Glucose 40% Gel) 15-30 GRAMS 15 GRAMS... UD PRN PO 11/17/16 20:15 5/17/17 20:14 Glucose (Glucose Chew Tab) 4-8 Tablets 4 Tabl... UD PRN PO 11/17/16 20:15 12/17/16 20:14 Dextrose (Dextrose 50% 50ML Syringe) 25-50ML OF 50% DW IV FOR... UD PRN IV 11/17/16 20:15 12/17/16 20:14 Glucagon (Glucagon Inj) 1 mg UD PRN SQ 11/17/16 20:15 12/17/16 20:14 Ipratropium [place] (Atrovent 0.02% 0.5MG/2.5ML Neb) 0.5 mg Q2H PRN INH 11/17/16 23:45 12/17/16 23:44 11/21/16 02:05 0.5 MG Levalbuterol (Xopenex 1.25MG/ 0.5ML Neb) 1.25 mg Q2H PRN INH 11/17/16 23:45 12/17/16 23:44 11/21/16 02:05 1.25 MG Heparin Sodium (Porcine) (Heparin Sq 5000 Unit/0.5ml) 5,000 unit Q8 SQ 11/18/16 14:00 12/18/16 13:59 11/21/16 05:44 5,000 UNIT Insulin Glargine (Lantus Solostar Pen) 15 unit QAM SC 11/19/16 09:00 12/19/16 08:59 11/21/16 08:30 15 UNIT Tiotropium [place] (Spiriva Handihaler Inhaler) 1 puff QAM INH 11/19/16 09:00 12/19/16 08:59 11/21/16 08:23 1 PUFF Clopidogrel Bisulfate (plAVix TAB) 75 mg QAM PO 11/20/16 09:00 12/20/16 08:59 11/21/16 08:25 75 MG Pantoprazole Sodium (Protonix Tab) 40 mg BID PO 11/19/16 21:00 12/19/16 20:59 11/21/16 08:26 40 MG Ranitidine HCl (zANTac TAB) 150 mg QAM PO 11/20/16 09:00 12/20/16 08:59 11/21/16 08:26 150 MG Al Hydroxide/Mg Hydroxide (Maalox Susp) 15 ml Q6H PRN PO 11/19/16 15:00 12/19/16 14:59 Polyethylene (Miralax Powder Packet) 17 gm DAILY PRN PO 11/20/16 00:45 12/20/16 00:44 11/20/16 01:44 17 GM Budesonide/ Formoterol Fumarate (Symbicort 160/ 4.5 Inh) 2 puffs BID INH 11/20/16 21:00 12/20/16 20:59 11/21/16 08:23 2 PUFFS Levofloxacin (Levaquin Tab) 500 mg Q48H PO 11/22/16 11:00 11/27/16 10:59 Sodium Bicarbonate (Sodium Bicarbonate Tab) 650 mg BID PO 11/20/16 21:00 12/20/16 20:59 11/20/16 20:42 650 MG Metoprolol Tartrate (Lopressor Tab) 25 mg Q12 PO 11/20/16 21:00 12/20/16 20:59 11/21/16 08:25 25 MG Magnesium Oxide 400 mg 400 mg DAILY PO 11/21/16 09:00 12/21/16 08:59 11/21/16 08:25 400 MG Furosemide/Syringe (Lasix Inj/ Syringe) 2 ml @ 4 mls/min BID17 IV 11/21/16 21:00 12/21/16 20:59 Objective Vital Signs Date Time Temp Pulse Resp B/P Pulse Ox O2 Delivery O2 Flow Rate FiO2 11/21/16 08:30 37.1 82 20 113/66 96 Nasal Cannula 2.0 11/21/16 08:00 Room Air 11/21/16 04:12 37.0 82 18 112/65 94 Nasal Cannula 11/21/16 04:00 93 Nasal Cannula 2.0 11/21/16 02:05 84 28 Nasal Cannula 2.0 90 11/20/16 23:59 93 Nasal Cannula 2.0 11/20/16 23:48 36.9 80 20 91/64 93 Nasal Cannula 2.0 11/20/16 20:04 36.5 81 19 112/53 91 Nasal Cannula 2.0 11/20/16 20:00 Nasal Cannula 2.0 11/20/16 16:00 Nasal Cannula 2.0 11/20/16 15:31 36.5 83 20 108/69 90 Nasal Cannula 2.0 11/20/16 14:14 88 95 11/20/16 12:21 36.6 76 22 90/62 91 Nasal Cannula 2.0 Physical Exam General Appearance: no apparent distress, + obese Neck: supple, no JVD Respiratory/Chest: no respiratory distress, no accessory muscle use, + crackles (bibasal up to mid zone of lungs, no wheezing) Cardiovascular: regular rate, rhythm, no murmur (quiet HS, no appreciable murmur heard) Abdomen: normal bowel sounds, non tender, soft Extremities: no pedal edema, no calf tenderness, normal capillary refill Neurologic/Psychiatric: no motor/sensory deficits, alert, oriented x 3 Laboratory Results 11/21/16 05:15 Red Blood Count 3.39, Mean Corpuscular Volume 80.2, Mean Corpuscular Hemoglobin 26.3, Mean Corpuscular Hemoglobin Concent 32.7, Mean Platelet Volume 10.2, Neutrophils (%) (Auto) 86.6, Lymphocytes (%) (Auto) 4.0, Monocytes (%) (Auto) 8.1, Eosinophils (%) (Auto) 0.7, Basophils (%) (Auto) 0.1, Neutrophils # (Auto) 12.82, Lymphocytes # (Auto) 0.60, Monocytes # (Auto) 1.20, Eosinophils # (Auto) 0.11, Basophils # (Auto) 0.01 11/21/16 05:15 Test 11/20/16 20:18 11/21/16 05:15 11/21/16 11:38 Arterial Blood pH 7.42 (7.35-7.45) Arterial Blood Partial Pressure CO2 26 mmHg (35-46) Arterial Blood Partial Pressure O2 61 mm/Hg (80-95) Arterial Blood HCO3 17 mmol/L (19-24) Arterial Blood Oxygen Saturation 89.9 % (90-95) Arterial Blood Base Excess -6.5 mEq/L (-9-1.8) Arterial Blood Gas Delivery room air Km Test POS (POS) White Blood Count 14.82 K/uL (4.8-10.8) Red Blood Count 3.39 M/uL (4.2-5.4) Hemoglobin 8.9 g/dL (12.0-16.0) Hematocrit 27.2 % (37-47) Mean Corpuscular Volume 80.2 fL (80-100) Mean Corpuscular Hemoglobin 26.3 pg (25-34) Mean Corpuscular Hemoglobin Concent 32.7 g/dl (32-36) Platelet Count 318 K/uL (130-400) Mean Platelet Volume 10.2 fL (7.4-10.4) Neutrophils (%) (Auto) 86.6 % Lymphocytes (%) (Auto) 4.0 % Monocytes (%) (Auto) 8.1 % Eosinophils (%) (Auto) 0.7 % Basophils (%) (Auto) 0.1 % Neutrophils # (Auto) 12.82 K/uL (1.4-6.5) Lymphocytes # (Auto) 0.60 K/uL (1.2-3.4) Monocytes # (Auto) 1.20 K/uL (0.11-0.59) Eosinophils # (Auto) 0.11 K/uL (0-0.5) Basophils # (Auto) 0.01 K/uL (0-0.2) RDW Standard Deviation 40.5 fL (36.4-46.3) RDW Coefficient of Variation 13.8 % (11.5-14.5) Immature Granulocyte % (Auto) 0.5 % Immature Granulocyte # (Auto) 0.08 K/uL (0.00-0.02) Red Blood Cell Morphology Unremarkable Anion Gap 13.0 mmol/L (3-11) Est Creatinine Clear Calc Drug Dose 16.8 ml/min Estimated GFR () 16.6 Estimated GFR (Non- 14.3 BUN/Creatinine Ratio 16.5 (10-20) Lactic Acid Level 0.9 mmol/L (0.4-2.0) Calcium Level 8.4 mg/dl (8.5-10.1) Bedside Glucose 261 mg/dl (70-90) Assessment and Plan 71 yo with acute NSTEMI s/p 2 overlapping drug-eluting stents mid to distal circumflex. CARDIO NSTEMI - ASA, clopidogrel, Atorvastatin 80mg, metoprolol, not on ACEi due to DEMETRA. Appreciate cardiology recommendations, stress echo as outpatient planned Tachycardia episodes - A fib vs. sinus tachy + PACs, no recurrence last night - no further episodes but will remain on telemetry overnight Acute heart failure with preserved ejection fraction (LVEF 50-55%) - pulmonary edema s/p cath due to IVF to reduce risk of contrast nephropathy - Significant weight gain over last 2 days, -ve balance 380ml however. Agree with nephrology to increase Lasix - daily weights, I&Os - up titrate BB as able with BP, no ACEi as below Respiratory Acute hypoxic respiratory failure - aim sats O2 >90% COPD - increased Symbicort to 160/45 2 puffs BID. Continue Spiriva (new this admission). - Continue regular Q6H nebulizers - hold off on steroids as looking well this morning, no wheezing and is glucose control is poor even without steroids - use incentive spirometry and flutter valve Nephrology Acute kidney injury on Chronic kidney disease stage 4 - UO reduced yesterday, Cr down slightly - Follow up urine culture - FEN = 0.3, likely pre-renal from heart failure Hyponatremia - hyperglycemia + low effective blood volume (heart failure, DEMETRA) Gastrointestinal Peptic ulcer disease / GERD - recurrence of heartburn this admission and previous GI intolerance to aspirin. Omeprazole switched to pantoprazole as per formulary. Added ranitidine due to concern for bleed given H&H decreasing and Urea increasing. Fecal Hemoccult stool ordered. Endocrinology T2DM - Novolog aim 140-180, correction 30, carb coverage 9 - will continue from these settings from previously - continue increased basal home dose lantus 15 units QAM, 20 units QPM - diabetes education - diabetic, renal, heart healthy, low sodium diet Diabetic neuropathy - Continue gabapentin Infectious Disease Suspected pneumonia - lactic acidosis 11/20 and started on Levaquin (renally dosed) for HAP (MRSA negative). Day 2. Miscellaneous Smoking - smoking cessation information on d/c - discussed importance of stopping by different providers on numerous occasions - consider Wellbutrin outpatient - denies cravings and refuses nicotine patch Anxiety -Continue Lexapro 10 mg VTE Prophylaxis - Heparin SQ 5000 units TID Code - Full Disposition - Consider step down to med/surg tomorrow if remains clinically stable but given rising urea and Hgb drop with only mild improvement of renal function I am concerned about stepping her down too early. Resident Physician Supervision Note: I interviewed and examined the patient. Discussed with Dr. Duke and agree with findings and plan as documented in the note. Any exceptions or clarifications are listed here: None Documented By: Chepe Camarillo feeling a little better, no new sob. no new complaints ros otherwise negative except for as above o: vitals noted nad, breathing unlabored but on 2L no pallor or icterus NSTEMI - stable, continue med management and secondary risk reduction HAP (possible gram negative) - MRSA nares negative, continue levaquin renally dosed ARF on CKD3 - ongoing management of above exacerbating factors, ongoing nephrology eval and treat DVT proph - heparin SQ
[2016-11-21] MEDS: SODIUM BICARBONATE 650 MG TAB PO SCH ×2 (12:09→20:33)
--- NOTE | 2016-11-21 12:20 | Cardiology Follow-Up ---
Subjective Subjective Date of Service: Nov 21, 2016. Pt evaluation today including: conversation w/ patient, physical exam, chart review, lab review, review of studies, review of inpatient medication list Additional Details: Patient feeling well this morning. Reports 1 episode of shortness of breath while walking to the bathroom last night. Denies any chest pain reminiscent of presentation. Denies any palpitations. Telemetry reviewed--no further events consistent with atrial fibrillation. Problem List Medical Problems: (1) Acute coronary syndrome Status: Acute (2) Acute electrocardiogram changes Status: Acute (3) Ankle pain Status: Acute (4) Chronic kidney disease Status: Acute (5) Colitis Status: Acute (6) NSTEMI (non-ST elevated myocardial infarction) Status: Acute Review of Systems Constitutional: No chills, No fever Eyes: No worsening of vision Cardiac: No PND, No chest pain, No orthopnea, No palpitations Abdomen: No nausea, No pain, No vomiting Musculoskeletal: No joint pain, No muscle pain Female : No dysuria, No hematuria, No urinary frequency Psychiatric: No depression symptoms Heme: No abnormal bleeding/bruising Skin: No rash Objective Vital Signs Last Vital Signs Documentation Date Time Temp Pulse Resp B/P Pulse Ox O2 Delivery O2 Flow Rate FiO2 11/21/16 08:30 37.1 82 20 113/66 96 Nasal Cannula 2.0 11/21/16 02:05 90 Physical Exam: General Appearance: no apparent distress Neck: supple Respiratory/Chest: no respiratory distress, no accessory muscle use, + crackles (Few crackles at right base greater than left), + wheezing (Few scattered wheezes) Cardiovascular: regular rate, rhythm, no murmur Abdomen: normal bowel sounds, non tender, soft Extremities: no pedal edema, no calf tenderness, normal capillary refill Neurologic/Psychiatric: alert, oriented x 3 Skin: normal color, warm/dry, no rash Lymphatic: no adenopathy Assessment and Plan 1. NSTEMI - s/p PCI to mid-distal circumflex; Trop peaked. Posterior hypokinesis but LV function grossly preserved 2. Residual LAD disease - intermediate proximal stenosis; additional ischemia assessment as an outpatient. 3. ATN/Acute on chronic renal insufficiency - SCr trended up mildly post procedure. Stable now. Mild residual congestion. Diuretics per renal 4. HTN -- well controlled on current regimen 5. Possible AF - tele reviewed, no further events suggestive of AFib with RVR 6. Type 2 DM -- sugars improved. -- On DAPT with ASA/clopidogrel -- Continue current metoprolol, current statin -- minimal congestion on exam today. Additional diuresis per Nephrology -- Continue to monitor on telemetry for now. No indication for systemic anticoagulation at this time -- Stress test as an outpatient. Will continue to follow. Medications: Current Inpatient Medications Medications (Trade) Dose Ordered Sig/Dajuan Route Start Time Stop Time Status Last Admin Dose Admin Ondansetron HCl (Zofran Inj) 4 mg Q6H PRN IV 11/17/16 20:15 12/17/16 20:14 Aspirin (Ecotrin Tab) 81 mg QAM PO 11/18/16 09:00 12/18/16 08:59 11/21/16 08:25 81 MG Atorvastatin Calcium (Lipitor Tab) 80 mg QAM PO 11/18/16 09:00 12/18/16 08:59 11/21/16 08:25 80 MG Acetaminophen (Tylenol Tab) 650 mg Q4H PRN PO 11/17/16 20:15 12/17/16 20:14 Alprazolam (Xanax Tab) 0.25 mg HS PRN PO 11/17/16 20:15 12/17/16 20:14 Escitalopram Oxalate (Lexapro Tab) 10 mg QPM PO 11/17/16 21:00 12/17/16 20:59 11/20/16 20:38 10 MG Gabapentin (Neurontin Cap) 300 mg HS PO 11/17/16 21:00 12/17/16 20:59 11/20/16 20:38 300 MG Insulin Glargine (Lantus Solostar Pen) 20 unit QPM SC 11/17/16 21:00 12/17/16 20:59 11/20/16 20:46 20 UNIT Insulin Aspart (novoLOG ASPART) SLIDING SCALE If C... ACHS SC 11/17/16 21:00 12/17/16 20:59 11/21/16 08:30 4 UNITS Glucose (Glucose 40% Gel) 15-30 GRAMS 15 GRAMS... UD PRN PO 11/17/16 20:15 12/17/16 20:14 Glucose (Glucose Chew Tab) 4-8 Tablets 4 Tabl... UD PRN PO 11/17/16 20:15 12/17/16 20:14 Dextrose (Dextrose 50% 50ML Syringe) 25-50ML OF 50% DW IV FOR... UD PRN IV 11/17/16 20:15 12/17/16 20:14 Glucagon (Glucagon Inj) 1 mg UD PRN SQ 11/17/16 20:15 12/17/16 20:14 Ipratropium [place] (Atrovent 0.02% 0.5MG/2.5ML Neb) 0.5 mg Q2H PRN INH 11/17/16 23:45 12/17/16 23:44 11/21/16 02:05 0.5 MG Levalbuterol (Xopenex 1.25MG/ 0.5ML Neb) 1.25 mg Q2H PRN INH 11/17/16 23:45 12/17/16 23:44 11/21/16 02:05 1.25 MG Heparin Sodium (Porcine) (Heparin Sq 5000 Unit/0.5ml) 5,000 unit Q8 SQ 11/18/16 14:00 12/18/16 13:59 11/21/16 05:44 5,000 UNIT Insulin Glargine (Lantus Solostar Pen) 15 unit QAM SC 11/19/16 09:00 12/19/16 08:59 11/21/16 08:30 15 UNIT Tiotropium [place] (Spiriva Handihaler Inhaler) 1 puff QAM INH 11/19/16 09:00 12/19/16 08:59 11/21/16 08:23 1 PUFF Clopidogrel Bisulfate (plAVix TAB) 75 mg QAM PO 11/20/16 09:00 12/20/16 08:59 11/21/16 08:25 75 MG Pantoprazole Sodium (Protonix Tab) 40 mg BID PO 11/19/16 21:00 12/19/16 20:59 11/21/16 08:26 40 MG Ranitidine HCl (zANTac TAB) 150 mg QAM PO 11/20/16 09:00 12/20/16 08:59 11/21/16 08:26 150 MG Al Hydroxide/Mg Hydroxide (Maalox Susp) 15 ml Q6H PRN PO 11/19/16 15:00 12/19/16 14:59 Polyethylene (Miralax Powder Packet) 17 gm DAILY PRN PO 11/20/16 00:45 12/20/16 00:44 11/20/16 01:44 17 GM Budesonide/ Formoterol Fumarate (Symbicort 160/ 4.5 Inh) 2 puffs BID INH 11/20/16 21:00 12/20/16 20:59 11/21/16 08:23 2 PUFFS Levofloxacin (Levaquin Tab) 500 mg Q48H PO 11/22/16 11:00 11/27/16 10:59 Sodium Bicarbonate (Sodium Bicarbonate Tab) 650 mg BID PO 11/20/16 21:00 12/20/16 20:59 11/20/16 20:42 650 MG Metoprolol Tartrate (Lopressor Tab) 25 mg Q12 PO 11/20/16 21:00 12/20/16 20:59 11/21/16 08:25 25 MG Magnesium Oxide 400 mg 400 mg DAILY PO 11/21/16 09:00 12/21/16 08:59 11/21/16 08:25 400 MG Furosemide/Syringe (Lasix Inj/ Syringe) 2 ml @ 4 mls/min BID17 IV 11/21/16 21:00 12/21/16 20:59 Lab Results: 11/21/16 05:15 Red Blood Count 3.39, Mean Corpuscular Volume 80.2, Mean Corpuscular Hemoglobin 26.3, Mean Corpuscular Hemoglobin Concent 32.7, Mean Platelet Volume 10.2, Neutrophils (%) (Auto) 86.6, Lymphocytes (%) (Auto) 4.0, Monocytes (%) (Auto) 8.1, Eosinophils (%) (Auto) 0.7, Basophils (%) (Auto) 0.1, Neutrophils # (Auto) 12.82, Lymphocytes # (Auto) 0.60, Monocytes # (Auto) 1.20, Eosinophils # (Auto) 0.11, Basophils # (Auto) 0.01 11/21/16 05:15 Test 11/20/16 20:18 11/21/16 05:15 11/21/16 11:38 Arterial Blood pH 7.42 (7.35-7.45) Arterial Blood Partial Pressure CO2 26 mmHg (35-46) Arterial Blood Partial Pressure O2 61 mm/Hg (80-95) Arterial Blood HCO3 17 mmol/L (19-24) Arterial Blood Oxygen Saturation 89.9 % (90-95) Arterial Blood Base Excess -6.5 mEq/L (-9-1.8) Arterial Blood Gas Delivery room air Km Test POS (POS) White Blood Count 14.82 K/uL (4.8-10.8) Red Blood Count 3.39 M/uL (4.2-5.4) Hemoglobin 8.9 g/dL (12.0-16.0) Hematocrit 27.2 % (37-47) Mean Corpuscular Volume 80.2 fL (80-100) Mean Corpuscular Hemoglobin 26.3 pg (25-34) Mean Corpuscular Hemoglobin Concent 32.7 g/dl (32-36) Platelet Count 318 K/uL (130-400) Mean Platelet Volume 10.2 fL (7.4-10.4) Neutrophils (%) (Auto) 86.6 % Lymphocytes (%) (Auto) 4.0 % Monocytes (%) (Auto) 8.1 % Eosinophils (%) (Auto) 0.7 % Basophils (%) (Auto) 0.1 % Neutrophils # (Auto) 12.82 K/uL (1.4-6.5) Lymphocytes # (Auto) 0.60 K/uL (1.2-3.4) Monocytes # (Auto) 1.20 K/uL (0.11-0.59) Eosinophils # (Auto) 0.11 K/uL (0-0.5) Basophils # (Auto) 0.01 K/uL (0-0.2) RDW Standard Deviation 40.5 fL (36.4-46.3) RDW Coefficient of Variation 13.8 % (11.5-14.5) Immature Granulocyte % (Auto) 0.5 % Immature Granulocyte # (Auto) 0.08 K/uL (0.00-0.02) Red Blood Cell Morphology Unremarkable Anion Gap 13.0 mmol/L (3-11) Est Creatinine Clear Calc Drug Dose 16.8 ml/min Estimated GFR () 16.6 Estimated GFR (Non- 14.3 BUN/Creatinine Ratio 16.5 (10-20) Lactic Acid Level 0.9 mmol/L (0.4-2.0) Calcium Level 8.4 mg/dl (8.5-10.1) Bedside Glucose 261 mg/dl (70-90)
[2016-11-21 18:41] LABS: HEMATOCRIT 27.8 % (37-47)
[2016-11-21] MEDS: FUROSEMIDE INJ 20 MG in SYRINGE 0 ML IV SCH (20:30)
[2016-11-21] MEDS: ESCITALOPRAM OXALATE 10 MG TAB PO SCH (20:31)
[2016-11-21] MEDS: GABAPENTIN 300 MG CAP PO SCH (20:33)
[2016-11-21] MEDS ORDERED: SUCRALFATE 1 GM TAB PO SCH (21:00)
[2016-11-22] VITALS (9 sets, daily range): BP systolic 101–120; BP diastolic 59–68; PULSE 70–94; TEMP 36.6–37.2; O2SAT 91–98
[2016-11-22] MEDS: HEPARIN SOD 5000 UNIT/0.5 ML CARP SQ SCH ×3 (05:48→20:32)
[2016-11-22 05:49] LABS: BASO % 0.3 %; BASO ABS # 0.03 K/uL (0-0.2); EOS % 1.2 %; HEMATOCRIT 26.4 % (37-47); IG% 0.5 %; LYMPH % 6.6 %; LYMPH ABS # 0.75 K/uL (1.2-3.4); MEAN CORPUSCULAR HEMOGLOBIN 26.4 pg (25-34); MEAN PLATELET VOLUME 10.9 fL (7.4-10.4); MONO % 7.7 %; NEUT % 83.7 %; PLATELET COUNT 341 K/uL (130-400); WHITE BLOOD COUNT 11.44 K/uL (4.8-10.8)
[2016-11-22 06:11] LABS: COMPLETE YES
[2016-11-22 06:22] LABS: BUN/CREATININE RATIO 16.8 (10-20); CALCIUM 8.3 mg/dl (8.5-10.1); CREATININE 3.2 mg/dl (0.60-1.20); POTASSIUM 3.5 mmol/L (3.5-5.1)
--- NOTE | 2016-11-22 07:07 | DIAGNOSTIC IMAGING REPORT ---
CHEST ONE VIEW PORTABLE CLINICAL HISTORY: CHF COMPARISON STUDY: 11/20/2016 FINDINGS: The cardiac and mediastinal contours remain stable. There is been near interval complete resolution of the previously described interstitial pulmonary edema. There are equivocal subtle left basal airspace opacities.. Trace subpulmonic pleural effusions are suspected.[ IMPRESSION: Resolving pulmonary edema. Electronically signed by: Elieser Cha M.D. 11/22/2016 7:05 AM Dictated Date/Time: 11/22/2016 7:04 AM
[2016-11-22] MEDS: ASPIRIN 81 MG ECTAB PO SCH (08:37)
[2016-11-22] MEDS: ATORVASTATIN 40 MG TAB PO SCH (08:37)
[2016-11-22] MEDS: FUROSEMIDE INJ 20 MG in SYRINGE 0 ML IV SCH ×2 (08:38→16:52)
[2016-11-22] MEDS: RANITIDINE HCL 150 MG TAB PO SCH ×2 (08:38→20:28)
[2016-11-22] MEDS: METOPROLOL TARTRATE 25 MG TAB PO SCH ×2 (09:00→20:34)
[2016-11-22] MEDS: TIOTROPIUM BROMIDE 5 PUFF/90 MCG INH INH SCH (09:00)
[2016-11-22] MEDS: SODIUM BICARBONATE 650 MG TAB PO SCH ×2 (09:01→20:27)
[2016-11-22] MEDS: BUDESONIDE/FORMOTEROL FUMARATE 160/4.5 60 PUFFS/INHALER INH SCH ×2 (09:01→20:26)
[2016-11-22] MEDS: MAGNESIUM OXIDE 400 MG TAB PO SCH (09:02)
[2016-11-22] MEDS: PANTOprazole SOD 40 MG TAB PO SCH ×2 (09:02→20:35)
[2016-11-22] MEDS: CLOPIDOGREL BISULFATE 75 MG TAB PO SCH (09:02)
[2016-11-22] MEDS: INSULIN ASPART 100 UNITS/ML 3 ML PEN SC SCH ×4 (09:07→20:36)
[2016-11-22] MEDS: INSULIN GLARGINE SOLOSTAR 100 UNITS/ML 3 ML PEN SC SCH ×2 (09:07→20:31)
[2016-11-22] MEDS ORDERED: POTASSIUM CHLORIDE 10 MEQ TABCR PO STA (10:10)
[2016-11-22] MEDS ORDERED: LEVOFLOXACIN 500 MG TAB PO SCH (11:00)
--- NOTE | 2016-11-22 11:30 | Cardiology Follow-Up ---
Subjective Subjective Date of Service: Nov 22, 2016. Pt evaluation today including: conversation w/ patient, physical exam, chart review, lab review, review of studies, review of inpatient medication list Additional Details: Breathing better today. No episodes of shortness of breath overnight. No chest pain. No other new complaints. Tele reviewed -- brief runs of SVT, suspect atrial tachycardia. No clear AF Problem List Medical Problems: (1) Acute coronary syndrome Status: Acute (2) Acute electrocardiogram changes Status: Acute (3) Ankle pain Status: Acute (4) Chronic kidney disease Status: Acute (5) Colitis Status: Acute (6) NSTEMI (non-ST elevated myocardial infarction) Status: Acute Review of Systems Constitutional: No chills, No fever Eyes: No worsening of vision Cardiac: No PND, No chest pain, No orthopnea, No palpitations Abdomen: No nausea, No pain, No vomiting Musculoskeletal: No joint pain, No muscle pain Female : No dysuria, No hematuria, No urinary frequency Psychiatric: No depression symptoms Heme: No abnormal bleeding/bruising Skin: No rash Objective Vital Signs Last Vital Signs Documentation Date Time Temp Pulse Resp B/P Pulse Ox O2 Delivery O2 Flow Rate FiO2 11/22/16 11:09 37.0 72 18 101/59 91 Room Air 11/22/16 04:10 2.0 90 Physical Exam: General Appearance: no apparent distress, + obese Neck: supple, no JVD Respiratory/Chest: lungs clear, no respiratory distress, no accessory muscle use Cardiovascular: regular rate, rhythm, no edema, no murmur Abdomen: normal bowel sounds, non tender, soft Extremities: no pedal edema, no calf tenderness, normal capillary refill Neurologic/Psychiatric: no motor/sensory deficits, alert, oriented x 3 Skin: normal color, warm/dry, no rash, + pertinent finding (stable ecchymosis at right radial artery access site. intact distal pulses. ) Lymphatic: no adenopathy Assessment and Plan 1. NSTEMI - s/p PCI to mid-distal circumflex; Trop peaked. Posterior hypokinesis but LV function grossly preserved 2. Residual LAD disease - intermediate proximal stenosis; additional ischemia assessment as an outpatient. 3. ATN/Acute on chronic renal insufficiency - SCr trended up mildly post procedure but stable now. Hyponatremia, volume status improving. Diuretics per renal 4. HTN -- well controlled on current regimen 5. Possible AF - tele reviewed, brief episodes of what looks to be Atach. no further events suggestive of AFib with RVR 6. Type 2 DM -- sugars improved. 7. Anemia Overall looks well from a cardiac standpoint. Can follow-up with me in 2-3 weeks. Continue DAPT with ASA/clopidogrel. No indication for systemic anticoagulation at this time Continue current metoprolol, current statin Diuretics per Nephrology Stress test as an outpatient. Medications: Current Inpatient Medications Medications (Trade) Dose Ordered Sig/Dajuan Route Start Time Stop Time Status Last Admin Dose Admin Ondansetron HCl (Zofran Inj) 4 mg Q6H PRN IV 11/17/16 20:15 12/17/16 20:14 Aspirin (Ecotrin Tab) 81 mg QAM PO 11/18/16 09:00 12/18/16 08:59 11/22/16 08:37 81 MG Atorvastatin Calcium (Lipitor Tab) 80 mg QAM PO 11/18/16 09:00 12/18/16 08:59 11/22/16 08:37 80 MG Acetaminophen (Tylenol Tab) 650 mg Q4H PRN PO 11/17/16 20:15 12/17/16 20:14 Alprazolam (Xanax Tab) 0.25 mg HS PRN PO 11/17/16 20:15 12/17/16 20:14 Escitalopram Oxalate (Lexapro Tab) 10 mg QPM PO 11/17/16 21:00 12/17/16 20:59 11/21/16 20:31 10 MG Gabapentin (Neurontin Cap) 300 mg HS PO 11/17/16 21:00 12/17/16 20:59 11/21/16 20:33 300 MG Insulin Glargine (Lantus Solostar Pen) 20 unit QPM SC 11/17/16 21:00 12/17/16 20:59 11/21/16 20:36 20 UNIT Insulin Aspart (novoLOG ASPART) SLIDING SCALE If C... ACHS SC 11/17/16 21:00 12/17/16 20:59 11/22/16 09:07 3 UNITS Glucose (Glucose 40% Gel) 15-30 GRAMS 15 GRAMS... UD PRN PO 11/17/16 20:15 12/17/16 20:14 Glucose (Glucose Chew Tab) 4-8 Tablets 4 Tabl... UD PRN PO 11/17/16 20:15 12/17/16 20:14 Dextrose (Dextrose 50% 50ML Syringe) 25-50ML OF 50% DW IV FOR... UD PRN IV 11/17/16 20:15 12/17/16 20:14 Glucagon (Glucagon Inj) 1 mg UD PRN SQ 11/17/16 20:15 12/17/16 20:14 Ipratropium [place] (Atrovent 0.02% 0.5MG/2.5ML Neb) 0.5 mg Q2H PRN INH 11/17/16 23:45 12/17/16 23:44 11/21/16 02:05 0.5 MG Levalbuterol (Xopenex 1.25MG/ 0.5ML Neb) 1.25 mg Q2H PRN INH 11/17/16 23:45 12/17/16 23:44 11/21/16 02:05 1.25 MG Heparin Sodium (Porcine) (Heparin Sq 5000 Unit/0.5ml) 5,000 unit Q8 SQ 11/18/16 14:00 12/18/16 13:59 11/22/16 05:48 5,000 UNIT Insulin Glargine (Lantus Solostar Pen) 15 unit QAM SC 11/19/16 09:00 12/19/16 08:59 11/22/16 09:07 15 UNIT Tiotropium [place] (Spiriva Handihaler Inhaler) 1 puff QAM INH 11/19/16 09:00 12/19/16 08:59 11/22/16 09:00 1 PUFF Clopidogrel Bisulfate (plAVix TAB) 75 mg QAM PO 11/20/16 09:00 12/20/16 08:59 11/22/16 09:02 75 MG Pantoprazole Sodium (Protonix Tab) 40 mg BID PO 11/19/16 21:00 12/19/16 20:59 11/22/16 09:02 40 MG Al Hydroxide/Mg Hydroxide (Maalox Susp) 15 ml Q6H PRN PO 11/19/16 15:00 12/19/16 14:59 Polyethylene (Miralax Powder Packet) 17 gm DAILY PRN PO 11/20/16 00:45 12/20/16 00:44 11/20/16 01:44 17 GM Budesonide/ Formoterol Fumarate (Symbicort 160/ 4.5 Inh) 2 puffs BID INH 11/20/16 21:00 12/20/16 20:59 11/22/16 09:01 2 PUFFS Levofloxacin (Levaquin Tab) 500 mg Q48H PO 11/22/16 11:00 11/27/16 10:59 Sodium Bicarbonate (Sodium Bicarbonate Tab) 650 mg BID PO 11/20/16 21:00 12/20/16 20:59 11/22/16 09:01 650 MG Metoprolol Tartrate (Lopressor Tab) 25 mg Q12 PO 11/20/16 21:00 12/20/16 20:59 11/22/16 09:00 25 MG Magnesium Oxide 400 mg 400 mg DAILY PO 11/21/16 09:00 12/21/16 08:59 11/22/16 09:02 400 MG Furosemide/Syringe (Lasix Inj/ Syringe) 2 ml @ 4 mls/min BID17 IV 11/21/16 21:00 12/21/16 20:59 11/22/16 08:38 4 MLS/MIN Ranitidine HCl (zANTac TAB) 150 mg BID PO 11/21/16 21:00 12/21/16 20:59 11/22/16 08:38 150 MG Lab Results: 11/22/16 05:17 Red Blood Count 3.30, Mean Corpuscular Volume 80.0, Mean Corpuscular Hemoglobin 26.4, Mean Corpuscular Hemoglobin Concent 33.0, Mean Platelet Volume 10.9, Neutrophils (%) (Auto) 83.7, Lymphocytes (%) (Auto) 6.6, Monocytes (%) (Auto) 7.7, Eosinophils (%) (Auto) 1.2, Basophils (%) (Auto) 0.3, Neutrophils # (Auto) 9.58, Lymphocytes # (Auto) 0.75, Monocytes # (Auto) 0.88, Eosinophils # (Auto) 0.14, Basophils # (Auto) 0.03 11/22/16 05:17 Test 11/22/16 05:17 11/22/16 06:23 11/22/16 11:23 White Blood Count 11.44 K/uL (4.8-10.8) Red Blood Count 3.30 M/uL (4.2-5.4) Hemoglobin 8.7 g/dL (12.0-16.0) Hematocrit 26.4 % (37-47) Mean Corpuscular Volume 80.0 fL (80-100) Mean Corpuscular Hemoglobin 26.4 pg (25-34) Mean Corpuscular Hemoglobin Concent 33.0 g/dl (32-36) Platelet Count 341 K/uL (130-400) Mean Platelet Volume 10.9 fL (7.4-10.4) Neutrophils (%) (Auto) 83.7 % Lymphocytes (%) (Auto) 6.6 % Monocytes (%) (Auto) 7.7 % Eosinophils (%) (Auto) 1.2 % Basophils (%) (Auto) 0.3 % Neutrophils # (Auto) 9.58 K/uL (1.4-6.5) Lymphocytes # (Auto) 0.75 K/uL (1.2-3.4) Monocytes # (Auto) 0.88 K/uL (0.11-0.59) Eosinophils # (Auto) 0.14 K/uL (0-0.5) Basophils # (Auto) 0.03 K/uL (0-0.2) RDW Standard Deviation 39.8 fL (36.4-46.3) RDW Coefficient of Variation 13.8 % (11.5-14.5) Immature Granulocyte % (Auto) 0.5 % Immature Granulocyte # (Auto) 0.06 K/uL (0.00-0.02) Red Blood Cell Morphology Unremarkable Anion Gap 9.0 mmol/L (3-11) Est Creatinine Clear Calc Drug Dose 16.4 ml/min Estimated GFR () 16.0 Estimated GFR (Non- 13.8 BUN/Creatinine Ratio 16.8 (10-20) Calcium Level 8.3 mg/dl (8.5-10.1) Bedside Glucose 110 mg/dl (70-90)
--- NOTE | 2016-11-22 13:19 | Nephrology Progress Note ---
Nephrology Progress Note Date of Service Nov 22, 2016. Chief Complaint Follow-up for acute kidney injury with baseline advanced CKD. Dominic Ba was seen and examined in her room this morning. She has been otherwise feeling fine, denies any shortness of breath, chest pain, fever chills, anorexia nausea. Blood pressure has been stable. Has been non-oliguric. Creatinine staying about same, 3.2 this morning without any significant changes. Serum sodium improved to 130 and bicarbonate improved and normalized. Review of Systems A complete review of systems was performed. Pertinent positives are noted above. All other systems are negative. Vital Signs Last 8 Hrs Date Time Temp Pulse Resp B/P Pulse Ox O2 Delivery O2 Flow Rate FiO2 11/22/16 11:09 37.0 72 18 101/59 91 Room Air 11/22/16 10:10 36.6 77 18 109/60 91 Room Air 11/22/16 08:00 Room Air 11/22/16 07:25 36.6 77 18 109/60 91 Room Air I & O 24-Hour Column 11/22/16 08:00 Intake Total 790 ml Output Total 650 ml Balance 140 ml Last Recorded Weight Weight (Kilograms): 74.200 Physical Exam GENERAL: Elderly female, AAA x 3, pleasant, healthy-appearing, not in any distress. NECK: Supple, no JVD. RESPIRATORY: Normal breathing efforts, no accessory muscle use, bibasilar rales. CARDIOVASCULAR: S1, S2 normal, rate rhythm regular. EXTREMITY: No lower extremity edema NEURO: speech fluent. PSYCHIATRY: Normal mood and judgment Family History Diabetes mellitus FH: gallbladder disease FH: heart disease FH: lung disease FHx: cancer Hypertension Negative for CKD / ESRD Social History Drug Use: none Marital Status: Occupation: retired . Retired. Current smoker Laboratory Results Past 24 Hours 11/21/16 18:35 11/22/16 05:17 Red Blood Count 3.30, Mean Corpuscular Volume 80.0, Mean Corpuscular Hemoglobin 26.4, Mean Corpuscular Hemoglobin Concent 33.0, Mean Platelet Volume 10.9, Neutrophils (%) (Auto) 83.7, Lymphocytes (%) (Auto) 6.6, Monocytes (%) (Auto) 7.7, Eosinophils (%) (Auto) 1.2, Basophils (%) (Auto) 0.3, Neutrophils # (Auto) 9.58, Lymphocytes # (Auto) 0.75, Monocytes # (Auto) 0.88, Eosinophils # (Auto) 0.14, Basophils # (Auto) 0.03 11/22/16 05:17 Test 11/21/16 16:15 11/21/16 20:38 11/22/16 05:17 11/22/16 06:23 Bedside Glucose 158 mg/dl (70-90) 181 mg/dl (70-90) 110 mg/dl (70-90) White Blood Count 11.44 K/uL (4.8-10.8) Red Blood Count 3.30 M/uL (4.2-5.4) Hemoglobin 8.7 g/dL (12.0-16.0) Hematocrit 26.4 % (37-47) Mean Corpuscular Volume 80.0 fL (80-100) Mean Corpuscular Hemoglobin 26.4 pg (25-34) Mean Corpuscular Hemoglobin Concent 33.0 g/dl (32-36) Platelet Count 341 K/uL (130-400) Mean Platelet Volume 10.9 fL (7.4-10.4) Neutrophils (%) (Auto) 83.7 % Lymphocytes (%) (Auto) 6.6 % Monocytes (%) (Auto) 7.7 % Eosinophils (%) (Auto) 1.2 % Basophils (%) (Auto) 0.3 % Neutrophils # (Auto) 9.58 K/uL (1.4-6.5) Lymphocytes # (Auto) 0.75 K/uL (1.2-3.4) Monocytes # (Auto) 0.88 K/uL (0.11-0.59) Eosinophils # (Auto) 0.14 K/uL (0-0.5) Basophils # (Auto) 0.03 K/uL (0-0.2) RDW Standard Deviation 39.8 fL (36.4-46.3) RDW Coefficient of Variation 13.8 % (11.5-14.5) Immature Granulocyte % (Auto) 0.5 % Immature Granulocyte # (Auto) 0.06 K/uL (0.00-0.02) Red Blood Cell Morphology Unremarkable Anion Gap 9.0 mmol/L (3-11) Est Creatinine Clear Calc Drug Dose 16.4 ml/min Estimated GFR () 16.0 Estimated GFR (Non- 13.8 BUN/Creatinine Ratio 16.8 (10-20) Calcium Level 8.3 mg/dl (8.5-10.1) Test 11/22/16 11:19 11/22/16 11:20 Bedside Glucose 173 mg/dl (70-90) Stool Occult Blood NEGATIVE (NEGATIVE) Allergies Coded Allergies: No Known Allergies (Verified , 11/17/16) Medications Current Inpatient Medications Medications (Trade) Dose Ordered Sig/Dajuan Route Start Time Stop Time Status Last Admin Dose Admin Ondansetron HCl (Zofran Inj) 4 mg Q6H PRN IV 11/17/16 20:15 12/17/16 20:14 Aspirin (Ecotrin Tab) 81 mg QAM PO 11/18/16 09:00 12/18/16 08:59 11/22/16 08:37 81 MG Atorvastatin Calcium (Lipitor Tab) 80 mg QAM PO 11/18/16 09:00 12/18/16 08:59 11/22/16 08:37 80 MG Acetaminophen (Tylenol Tab) 650 mg Q4H PRN PO 11/17/16 20:15 12/17/16 20:14 Alprazolam (Xanax Tab) 0.25 mg HS PRN PO 11/17/16 20:15 12/17/16 20:14 Escitalopram Oxalate (Lexapro Tab) 10 mg QPM PO 11/17/16 21:00 12/17/16 20:59 11/21/16 20:31 10 MG Gabapentin (Neurontin Cap) 300 mg HS PO 11/17/16 21:00 12/17/16 20:59 11/21/16 20:33 300 MG Insulin Glargine (Lantus Solostar Pen) 20 unit QPM SC 11/17/16 21:00 12/17/16 20:59 11/21/16 20:36 20 UNIT Insulin Aspart (novoLOG ASPART) SLIDING SCALE If C... ACHS SC 11/17/16 21:00 12/17/16 20:59 11/22/16 11:58 5 UNITS Glucose (Glucose 40% Gel) 15-30 GRAMS 15 GRAMS... UD PRN PO 11/17/16 20:15 12/17/16 20:14 Glucose (Glucose Chew Tab) 4-8 Tablets 4 Tabl... UD PRN PO 11/17/16 20:15 12/17/16 20:14 Dextrose (Dextrose 50% 50ML Syringe) 25-50ML OF 50% DW IV FOR... UD PRN IV 11/17/16 20:15 12/17/16 20:14 Glucagon (Glucagon Inj) 1 mg UD PRN SQ 11/17/16 20:15 12/17/16 20:14 Ipratropium [place] (Atrovent 0.02% 0.5MG/2.5ML Neb) 0.5 mg Q2H PRN INH 11/17/16 23:45 12/17/16 23:44 11/21/16 02:05 0.5 MG Levalbuterol (Xopenex 1.25MG/ 0.5ML Neb) 1.25 mg Q2H PRN INH 11/17/16 23:45 12/17/16 23:44 11/21/16 02:05 1.25 MG Heparin Sodium (Porcine) (Heparin Sq 5000 Unit/0.5ml) 5,000 unit Q8 SQ 11/18/16 14:00 12/18/16 13:59 11/22/16 05:48 5,000 UNIT Insulin Glargine (Lantus Solostar Pen) 15 unit QAM SC 11/19/16 09:00 12/19/16 08:59 11/22/16 09:07 15 UNIT Tiotropium [place] (Spiriva Handihaler Inhaler) 1 puff QAM INH 11/19/16 09:00 12/19/16 08:59 11/22/16 09:00 1 PUFF Clopidogrel Bisulfate (plAVix TAB) 75 mg QAM PO 11/20/16 09:00 12/20/16 08:59 11/22/16 09:02 75 MG Pantoprazole Sodium (Protonix Tab) 40 mg BID PO 11/19/16 21:00 12/19/16 20:59 11/22/16 09:02 40 MG Al Hydroxide/Mg Hydroxide (Maalox Susp) 15 ml Q6H PRN PO 11/19/16 15:00 12/19/16 14:59 Polyethylene (Miralax Powder Packet) 17 gm DAILY PRN PO 11/20/16 00:45 12/20/16 00:44 11/20/16 01:44 17 GM Budesonide/ Formoterol Fumarate (Symbicort 160/ 4.5 Inh) 2 puffs BID INH 11/20/16 21:00 12/20/16 20:59 11/22/16 09:01 2 PUFFS Levofloxacin (Levaquin Tab) 500 mg Q48H PO 11/22/16 11:00 11/27/16 10:59 11/22/16 11:56 500 MG Sodium Bicarbonate (Sodium Bicarbonate Tab) 650 mg BID PO 11/20/16 21:00 12/20/16 20:59 11/22/16 09:01 650 MG Metoprolol Tartrate (Lopressor Tab) 25 mg Q12 PO 11/20/16 21:00 12/20/16 20:59 11/22/16 09:00 25 MG Magnesium Oxide 400 mg 400 mg DAILY PO 11/21/16 09:00 12/21/16 08:59 11/22/16 09:02 400 MG Furosemide/Syringe (Lasix Inj/ Syringe) 2 ml @ 4 mls/min BID17 IV 11/21/16 21:00 12/21/16 20:59 11/22/16 08:38 4 MLS/MIN Ranitidine HCl (zANTac TAB) 150 mg BID PO 11/21/16 21:00 12/21/16 20:59 11/22/16 08:38 150 MG Impression (1) ARF (acute renal failure) (2) Chronic kidney disease (3) NSTEMI (non-ST elevated myocardial infarction) (4) Diabetes (5) COPD (chronic obstructive pulmonary disease) Patient admitted to [facility] w/ NSTEMI requiring cardiac catheterization and drug eluting stent x 2 of the left circumflex artery. Post procedure she has had episodes of SVT and CHF. She has responded to IV diuretic therapy. Serum creatinine has risen to 3.1 and patient has developed hyponatremia and metabolic acidosis. Recommendations ACUTE KIDNEY INJURY: -- secondary to contrast induced nephropathy with underlying advanced CKD -- no significant improvement renal function yet, continue to monitor for renal recovery -- avoid further IV fluid, avoid nephrotoxins medication and dose medications for GFR less than 30. METABOLIC ACIDOSIS: Improved -- Continue NaHCO3 650 mg po BID HYPONATREMIA: improving -- continue Furosemide to 20 mg IV BID, monitor UO, kidney function and electrolytes CHF: -- Diuretic adjusted as above
--- NOTE | 2016-11-22 16:17 | Progress Note ---
Subjective Date of Service: Nov 22, 2016. Subjective Pt evaluation today including: conversation w/ patient, physical exam, chart review, lab review feeling better no sob cough sputum f/c/s no cp sob smiley voiding ros otherwise engative except for as above Problem List Medical Problems: (1) Acute coronary syndrome Status: Acute (2) Acute electrocardiogram changes Status: Acute (3) Ankle pain Status: Acute (4) Chronic kidney disease Status: Acute (5) Colitis Status: Acute (6) NSTEMI (non-ST elevated myocardial infarction) Status: Acute Review of Systems ros otherwise negative except for as above Objective Vital Signs Date Time Temp Pulse Resp B/P Pulse Ox O2 Delivery O2 Flow Rate FiO2 11/22/16 15:54 37.2 70 20 115/68 95 Room Air 11/22/16 14:26 94 91 11/22/16 11:09 37.0 72 18 101/59 91 Room Air 11/22/16 10:10 36.6 77 18 109/60 91 Room Air 11/22/16 08:00 Room Air 11/22/16 07:25 36.6 77 18 109/60 91 Room Air 11/22/16 04:32 36.7 76 18 114/65 91 Room Air 11/22/16 04:10 98 Nasal Cannula 2.0 90 11/22/16 00:10 98 Nasal Cannula 2.0 90 11/21/16 23:52 36.8 80 18 98/68 91 Room Air 11/21/16 20:00 98 Nasal Cannula 2.0 90 11/21/16 19:12 36.5 78 18 111/71 98 Nasal Cannula 2.0 Physical Exam General Appearance: no apparent distress Eyes: EOMI ENT: hearing grossly normal Neck: trachea midline Respiratory/Chest: no respiratory distress, no accessory muscle use Extremities: normal range of motion Neurologic/Psychiatric: audit officer II-XII nml as tested, alert, normal mood/affect Skin: normal color, warm/dry Laboratory Results Last 24 Hours Test 11/21/16 16:15 11/21/16 18:35 11/21/16 20:38 11/22/16 05:17 Bedside Glucose 158 mg/dl 181 mg/dl Hemoglobin 9.2 g/dL 8.7 g/dL Hematocrit 27.8 % 26.4 % White Blood Count 11.44 K/uL Red Blood Count 3.30 M/uL Mean Corpuscular Volume 80.0 fL Mean Corpuscular Hemoglobin 26.4 pg Mean Corpuscular Hemoglobin Concent 33.0 g/dl Platelet Count 341 K/uL Mean Platelet Volume 10.9 fL Neutrophils (%) (Auto) 83.7 % Lymphocytes (%) (Auto) 6.6 % Monocytes (%) (Auto) 7.7 % Eosinophils (%) (Auto) 1.2 % Basophils (%) (Auto) 0.3 % Neutrophils # (Auto) 9.58 K/uL Lymphocytes # (Auto) 0.75 K/uL Monocytes # (Auto) 0.88 K/uL Eosinophils # (Auto) 0.14 K/uL Basophils # (Auto) 0.03 K/uL RDW Standard Deviation 39.8 fL RDW Coefficient of Variation 13.8 % Immature Granulocyte % (Auto) 0.5 % Immature Granulocyte # (Auto) 0.06 K/uL Red Blood Cell Morphology Unremarkable Sodium Level 130 mmol/L Potassium Level 3.5 mmol/L Chloride Level 97 mmol/L Carbon Dioxide Level 24 mmol/L Anion Gap 9.0 mmol/L Blood Urea Nitrogen 54 mg/dl Creatinine 3.20 mg/dl Est Creatinine Clear Calc Drug Dose 16.4 ml/min Estimated GFR () 16.0 Estimated GFR (Non- 13.8 BUN/Creatinine Ratio 16.8 Random Glucose 99 mg/dl Calcium Level 8.3 mg/dl Test 11/22/16 06:23 11/22/16 11:19 11/22/16 11:20 Bedside Glucose 110 mg/dl 173 mg/dl Stool Occult Blood NEGATIVE Assessment and Plan NSTEMI - ASA, clopidogrel, Atorvastatin 80mg, metoprolol, not on ACEi/ARB due to DEMETRA. stress echo as outpatient Acute heart failure with preserved ejection fraction (LVEF 50-55%) - -improving -ongoing intermittent diuresis Acute hypoxic respiratory failure - aim sats O2 >90% COPD healthcare associated pneumonia (presumed gram negatives) - increased Symbicort to 160/45 2 puffs BID. Continue Spiriva (new this admission). - Continue regular Q6H nebulizers - hold off on steroids as looking well this morning, no wheezing and is glucose control is poor even without steroids - use incentive spirometry and flutter valve - levaquin Acute kidney injury on Chronic kidney disease stage 4 - -likely atn and some contrast nephropathy -ongoing follow up -appreciate nephrology input Hyponatremia - hyperglycemia + low effective blood volume (heart failure, DEMETRA) Peptic ulcer disease / GERD - continue PPI. OK to dc additional H2 T2DM - sugars reasonable control, continue current regimen Diabetic neuropathy - Continue gabapentin Smoking - smoking cessation information on d/c - discussed importance of stopping by different providers on numerous occasions - consider Wellbutrin outpatient Anxiety -Continue Lexapro 10 mg VTE Prophylaxis - Heparin SQ Code - Full stable for med surg
[2016-11-22] MEDS: GABAPENTIN 300 MG CAP PO SCH (20:33)
[2016-11-22] MEDS: ESCITALOPRAM OXALATE 10 MG TAB PO SCH (20:33)
[2016-11-23] MEDS: HEPARIN SOD 5000 UNIT/0.5 ML CARP SQ SCH ×2 (05:51→13:34)
[2016-11-23 07:01] VITALS: BP 100/57; PULSE 83; TEMP 37; O2SAT 96
[2016-11-23 08:19] LABS: BUN/CREATININE RATIO 16.8 (10-20); CREATININE 3.2 mg/dl (0.60-1.20); POTASSIUM 3.4 mmol/L (3.5-5.1)
[2016-11-23 08:28] LABS: CALCIUM 8.7 mg/dl (8.5-10.1)
[2016-11-23] MEDS: INSULIN ASPART 100 UNITS/ML 3 ML PEN SC SCH ×2 (08:46→12:05)
[2016-11-23] MEDS: BUDESONIDE/FORMOTEROL FUMARATE 160/4.5 60 PUFFS/INHALER INH SCH (08:50)
[2016-11-23] MEDS: TIOTROPIUM BROMIDE 5 PUFF/90 MCG INH INH SCH (08:50)
[2016-11-23] MEDS: FUROSEMIDE INJ 20 MG in SYRINGE 0 ML IV SCH (08:50)
[2016-11-23] MEDS: CLOPIDOGREL BISULFATE 75 MG TAB PO SCH (08:51)
[2016-11-23] MEDS: ASPIRIN 81 MG ECTAB PO SCH (08:51)
[2016-11-23] MEDS: ATORVASTATIN 40 MG TAB PO SCH (08:51)
[2016-11-23] MEDS: METOPROLOL TARTRATE 25 MG TAB PO SCH (08:51)
[2016-11-23] MEDS: MAGNESIUM OXIDE 400 MG TAB PO SCH (08:51)
[2016-11-23] MEDS: PANTOprazole SOD 40 MG TAB PO SCH (08:51)
[2016-11-23] MEDS: SODIUM BICARBONATE 650 MG TAB PO SCH (08:51)
[2016-11-23] MEDS: RANITIDINE HCL 150 MG TAB PO SCH (08:51)
[2016-11-23] MEDS: INSULIN GLARGINE SOLOSTAR 100 UNITS/ML 3 ML PEN SC SCH (08:54)
[2016-11-23] MEDS ORDERED: POTASSIUM CHLORIDE 10 MEQ TABCR PO STA (09:32)
--- NOTE | 2016-11-23 11:38 | Nephrology Progress Note ---
Nephrology Progress Note Date of Service Nov 23, 2016. Chief Complaint Follow-up for acute kidney injury with baseline advanced CKD. Dominic Ba was seen and examined in her room this morning. She has been otherwise feeling well, denies any shortness of breath, chest pain, appetite stable. Renal functions stable without any further improvement, creatinine 3.2, sodium improved to 133, potassium slightly low at 3.4. Blood pressure well control and remain non-oliguric. Review of Systems A complete review of systems was performed. Pertinent positives are noted above. All other systems are negative. Vital Signs Last 8 Hrs Date Time Temp Pulse Resp B/P Pulse Ox O2 Delivery O2 Flow Rate FiO2 11/23/16 08:15 Room Air 11/23/16 07:01 37.0 83 16 100/57 96 Room Air I & O 24-Hour Column 11/23/16 08:00 Intake Total 700 ml Balance 700 ml Last Recorded Weight Weight (Kilograms): 74.200 Physical Exam GENERAL: Elderly female, AAA x 3, pleasant, healthy-appearing, not in any distress. NECK: Supple, no JVD. RESPIRATORY: Normal breathing efforts, no accessory muscle use, bibasilar rales. CARDIOVASCULAR: S1, S2 normal, rate rhythm regular. EXTREMITY: No lower extremity edema NEURO: speech fluent. PSYCHIATRY: Normal mood and judgment Family History Diabetes mellitus FH: gallbladder disease FH: heart disease FH: lung disease FHx: cancer Hypertension Negative for CKD / ESRD Social History Drug Use: none Marital Status: Occupation: retired . Retired. Current smoker Laboratory Results Past 24 Hours 11/23/16 07:25 Test 11/22/16 16:17 11/22/16 19:40 11/23/16 07:11 11/23/16 07:25 Bedside Glucose 80 mg/dl (70-90) 163 mg/dl (70-90) 76 mg/dl (70-90) Anion Gap 11.0 mmol/L (3-11) Est Creatinine Clear Calc Drug Dose 16.4 ml/min Estimated GFR () 16.0 Estimated GFR (Non- 13.8 BUN/Creatinine Ratio 16.8 (10-20) Calcium Level 8.7 mg/dl (8.5-10.1) Test 11/23/16 11:16 Bedside Glucose 129 mg/dl (70-90) Allergies Coded Allergies: No Known Allergies (Verified , 11/17/16) Medications Current Inpatient Medications Medications (Trade) Dose Ordered Sig/Dajuan Route Start Time Stop Time Status Last Admin Dose Admin Ondansetron HCl (Zofran Inj) 4 mg Q6H PRN IV 11/17/16 20:15 12/17/16 20:14 Aspirin (Ecotrin Tab) 81 mg QAM PO 11/18/16 09:00 12/18/16 08:59 11/23/16 08:51 81 MG Atorvastatin Calcium (Lipitor Tab) 80 mg QAM PO 11/18/16 09:00 12/18/16 08:59 11/23/16 08:51 80 MG Acetaminophen (Tylenol Tab) 650 mg Q4H PRN PO 11/17/16 20:15 12/17/16 20:14 11/23/16 06:00 650 MG Alprazolam (Xanax Tab) 0.25 mg HS PRN PO 11/17/16 20:15 12/17/16 20:14 Escitalopram Oxalate (Lexapro Tab) 10 mg QPM PO 11/17/16 21:00 12/17/16 20:59 11/22/16 20:33 10 MG Gabapentin (Neurontin Cap) 300 mg HS PO 11/17/16 21:00 12/17/16 20:59 11/22/16 20:33 300 MG Insulin Glargine (Lantus Solostar Pen) 20 unit QPM SC 11/17/16 21:00 12/17/16 20:59 11/22/16 20:31 20 UNIT Insulin Aspart (novoLOG ASPART) SLIDING SCALE If C... ACHS SC 11/17/16 21:00 12/17/16 20:59 11/22/16 11:58 5 UNITS Glucose (Glucose 40% Gel) 15-30 GRAMS 15 GRAMS... UD PRN PO 11/17/16 20:15 12/17/16 20:14 Glucose (Glucose Chew Tab) 4-8 Tablets 4 Tabl... UD PRN PO 11/17/16 20:15 12/17/16 20:14 Dextrose (Dextrose 50% 50ML Syringe) 25-50ML OF 50% DW IV FOR... UD PRN IV 11/17/16 20:15 5/17/17 20:14 Glucagon (Glucagon Inj) 1 mg UD PRN SQ 11/17/16 20:15 12/17/16 20:14 Ipratropium [place] (Atrovent 0.02% 0.5MG/2.5ML Neb) 0.5 mg Q2H PRN INH 11/17/16 23:45 12/17/16 23:44 11/21/16 02:05 0.5 MG Levalbuterol (Xopenex 1.25MG/ 0.5ML Neb) 1.25 mg Q2H PRN INH 11/17/16 23:45 12/17/16 23:44 11/21/16 02:05 1.25 MG Heparin Sodium (Porcine) (Heparin Sq 5000 Unit/0.5ml) 5,000 unit Q8 SQ 11/18/16 14:00 12/18/16 13:59 11/23/16 05:51 5,000 UNIT Insulin Glargine (Lantus Solostar Pen) 15 unit QAM SC 11/19/16 09:00 12/19/16 08:59 11/23/16 08:54 15 UNIT Tiotropium [place] (Spiriva Handihaler Inhaler) 1 puff QAM INH 11/19/16 09:00 12/19/16 08:59 11/23/16 08:50 1 PUFF Clopidogrel Bisulfate (plAVix TAB) 75 mg QAM PO 11/20/16 09:00 12/20/16 08:59 11/23/16 08:51 75 MG Pantoprazole Sodium (Protonix Tab) 40 mg BID PO 11/19/16 21:00 12/19/16 20:59 11/23/16 08:51 40 MG Al Hydroxide/Mg Hydroxide (Maalox Susp) 15 ml Q6H PRN PO 11/19/16 15:00 12/19/16 14:59 Polyethylene (Miralax Powder Packet) 17 gm DAILY PRN PO 11/20/16 00:45 12/20/16 00:44 11/20/16 01:44 17 GM Budesonide/ Formoterol Fumarate (Symbicort 160/ 4.5 Inh) 2 puffs BID INH 11/20/16 21:00 12/20/16 20:59 11/23/16 08:50 2 PUFFS Levofloxacin (Levaquin Tab) 500 mg Q48H PO 11/22/16 11:00 11/27/16 10:59 11/22/16 11:56 500 MG Sodium Bicarbonate (Sodium Bicarbonate Tab) 650 mg BID PO 11/20/16 21:00 12/20/16 20:59 11/23/16 08:51 650 MG Metoprolol Tartrate (Lopressor Tab) 25 mg Q12 PO 11/20/16 21:00 12/20/16 20:59 11/23/16 08:51 25 MG Magnesium Oxide 400 mg 400 mg DAILY PO 11/21/16 09:00 12/21/16 08:59 11/23/16 08:51 400 MG Furosemide/Syringe (Lasix Inj/ Syringe) 2 ml @ 4 mls/min BID17 IV 11/21/16 21:00 12/21/16 20:59 11/23/16 08:50 4 MLS/MIN Ranitidine HCl (zANTac TAB) 150 mg BID PO 11/21/16 21:00 12/21/16 20:59 11/23/16 08:51 150 MG Impression (1) ARF (acute renal failure) (2) Chronic kidney disease (3) NSTEMI (non-ST elevated myocardial infarction) (4) Diabetes (5) COPD (chronic obstructive pulmonary disease) Patient admitted to [facility] w/ NSTEMI requiring cardiac catheterization and drug eluting stent x 2 of the left circumflex artery. Post procedure she has had episodes of SVT and CHF. She has responded to IV diuretic therapy. Serum creatinine has risen to 3.1 and patient has developed hyponatremia and metabolic acidosis. Recommendations ACUTE KIDNEY INJURY: -- secondary to contrast induced nephropathy with underlying advanced CKD -- no significant improvement renal function yet, however creatinine remained stable from 3-3.2 for last few days. -- as renal function remained stable, she is otherwise feeling fine, will discharge with close outpatient follow-up --Patient will have made repeat renal panel on Thursday and then will schedule follow-up with Dr. Oliver then this week either Thursday or Thursday. --Advise patient to continue to avoid NSAID, avoid volume depletion METABOLIC ACIDOSIS: Improved -- Continue NaHCO3 650 mg po BID HYPONATREMIA: improving -- change Lasix to 20 milligram once a day upon discharge CHF: -- Diuretic adjusted as above
[2016-11-23] MEDS ORDERED: ASPEC81 PO (13:38)
[2016-11-23] MEDS ORDERED: PLV75 PO (13:38)
[2016-11-23] MEDS ORDERED: LVQ500 PO (13:38)
[2016-11-23] MEDS ORDERED: LPR25 PO (13:38)
[2016-11-23] MEDS ORDERED: SPRIN INH (13:38)
[2016-11-23] MEDS ORDERED: SODI650T9 PO (13:38)
[2016-11-23] MEDS ORDERED: FURO-85 PO (13:38)
[2016-11-23] MEDS ORDERED: LPT40 PO (13:38)
[2016-11-23] MEDS ORDERED: NTRGSL4 SL (13:49)
--- NOTE | 2016-11-23 13:56 | Discharge Instructions ---
Discharge Instructions Date of Service Nov 23, 2016. Admission Reason for Admission: Ami (Acute Myocardial Infarction) Discharge Discharge Diagnosis / Problem: heart attack (myocardial infarction) Discharge Goals Goal(s): Improve disease control, Diagnostic testing, Therapeutic intervention Activity Recommendations Activity Limitations: resume your previous activity (take it fairly easy until cardiology tells you it's OK to resume regular activity) . Instructions / Follow-Up Instructions / Follow-Up Heart attack -your initial problems that led you to the hospital were a heart attack, and subsequent fluid back-up into your lungs from the newly weakened heart muscle -this has been stabilized with the stenting and medications. the medications ( while there are a lot of them) are very important as they are very protective of keeping you from having "the next one" ---aspirin and plavix: these are both "antiplatelet" blood thinners to keep your blood from clotting in the stent, or in your coronary arteries elsewhere ---atorvastatin: this acts both to lower your cholesterol, and to stabilize the plaques already in your coronary arteries, making it less likely for things to split open and cause a heart attack again ----metoprolol: this is a blood pressure medicine in a class called "beta blockers" -- this helps to reduce how hard your heart is working so it's under less strain ----nitroglycerin: this is an emergency medication that we'll hope you don't need. if you get chest pain/pressure, put a tab under your tongue. if the pain doesn't go away in 5 minutes, then take a second one. if the pain doesn't go away after the second one, take a third one and then call 911 -----SMOKING: it is absolutely critical to never smoke again. the effect that has in clogging your coronary arteries cannot be understated. you haven't smoked since you've been in the hospital, so you're already through the hardest part Renal failure --your kidney numbers are normally somewhat impaired, and currently the numbers are worse. that is likely because of the heart attack (and newly weakened heart muscle) as well as the need to have you on a diuretic medicine to keep fluid out of your lungs, as well as possibly some effect of the contrast they had to use in the clinical lab specialist when opening up your blocked coronary. your numbers , while worse than you used to be, have been stable for days. it is safe to let you go home, but we'll have you get labs (BMP) done on Thursday, and then we' ll be working on getting you in with Dr Oliver this coming week Pneumonia -fortunately this was a fairly small, fairly mild pneumonia that got better really quickly. at this point, we'll be able to finish treatment of it with one more dose of antibiotic (levaquin) tomorrow. the levaquin has been sitting really well with you; we'd just suggest that you not do any heavy lifting/ repetitive lifting for the next month since it can (rarely) make people more prone to tendonitis or even tendon rupture COPD -to optimize treatment of your COPD, we've added spiriva (once a day, every day ) to your dulera. typically people breath better on both than on just one alone. we'll be working on setting you up with BOTH Dr Oliver and Dr Barroso in the coming week, as well as with [facility] in about 3-4 weeks. if you don't hear from us by Thursday, please call [phone] to check on your status. Call your Primary Care doctor if any of the following symptoms or problems start or get worse: * Shortness of breath or difficulty breathing * Wake up at night short of breath * Chest pain * Cough * Swelling of your hands, feet, or legs * More fatigued or tired with your normal activity * Palpitations - sudden fast heart beats WEIGHT * Weigh yourself every morning after using the bathroom. * Use the same scale. * Wear the same amount of clothing. * Write your weight down on a chart. * Call your Primary Care doctor if you gain more than 2-3 pounds in 1-2 days. MEDICATIONS * Use this discharge instruction sheet for medication instructions. * Take your medications at the time your doctor ordered. * Do not skip a dose of your medicines. * If you miss a dose of medicine, take it as soon as possible, but DO NOT DOUBLE A DOSE. * Read your medicine information when you get home. * Know all of the side effects of your medicine. If in doubt, ask your pharmacist * Call your Primary Care doctor's office if you have any side effects. * Be sure all of your doctors know what medicine and herbs you take (including cold, flu, and herbal medicine). Take the following with you to your follow-up doctor appointments: * Weight Chart * Medication List * List of questions Do not drink excessive alcohol, beer or wine. Current Hospital Diet Patient's current hospital diet: AHA Diet (Heart Healthy), Diabetes Type 2 Diet , Low Sodium Diet (2gm Na), Renal Diet Discharge Diet Recommended Diet: Low Sodium Diet (2gm Na), Diabetes Type 2 Diet, Renal Diet Pending Studies Studies pending at discharge: no Laboratory Results Hemoglobin A1c Test 11/18/16 06:11 Range/Units Estimated Average Glucose 180 mg/dl Hemoglobin A1c 7.9 H 4.5-5.6 % Lipid Panel Test 11/18/16 06:11 Range/Units Triglycerides Level 176 H 0-150 mg/dl Cholesterol Level 179 0-200 mg/dl HDL Cholesterol 35 mg/dl Cholesterol/HDL Ratio 5.1 LDL Cholesterol, Calculated 109 mg/dl Medical Emergencies . Who to Call and When: Call 911 or go to the Emergency Room if: * If at any time you feel your situation is an emergency * You have tightness or pain in your chest that does not go away with rest or Nitroglycerin * You are very short of breath even with rest . Non-Emergent Contact Non-Emergency issues call your: Primary Care Provider, Residence Supervisor, Dividend Deposit Entry Clerk . . "Provider Documentation" section prepared by Chepe Camarillo. . VTE Core Measure Inpt VTE Proph given/why not?: Unfractionated heparin SQ
--- NOTE | 2016-11-23 13:59 | Discharge Instructions ---
Discharge Instructions Date of Service Nov 23, 2016. Admission Reason for Admission: Ami (Acute Myocardial Infarction) Discharge Discharge Diagnosis / Problem: [place] Discharge Goals Goal(s): Diagnostic testing, Therapeutic intervention Activity Recommendations Activity Limitations: resume your previous activity (see other instructions) . Instructions / Follow-Up Instructions / Follow-Up please note, this is a somewhat duplicate set of instructions. due to government regulations, we're required to send you with both post--heart attack instructions and congestive heart failure instructions. despite my typing everything that really seems relevant to you on the other, more detailed, instructions; we would be tagged as noncompliant if we didn't send both. if the below information is helpful in addition to what i typed on the other sheet , great. if not (or if there's anything contradictory) please follow the other sheet. thank you, and sorry for any confusion or inconvenience Home Care: * Take your medications exactly as directed. Don't skip doses. * Remember that recovery after a heart attack takes time. Plan to rest for at lease 4-8 weeks while you recover. Then return to normal activity when your doctor says it's okay. * Ask your doctor about joining a heart rehabilitation program. * Tell your doctor if you are feeling depressed. Feelings of sadness are common after a heart attack, but it is important that you speak to someone if you are feeling overwhelmed by these feelings. * If you are having chest pain, call 911 for an ambulance. Do NOT drive yourself to the hospital. * Ask your family members to learn CPR. * Learn to take your own blood pressure and pulse. Keep a record of your results. Ask your doctor when you should seek emergency medical attention. He or she will tell you which blood pressure reading is dangerous. Lifestyle Changes: * Maintain a healthy weight. Get help to lose any extra pounds. * Cut back on salt. * Limit canned, dried, packaged, and fast foods. * Don't add salt to your food. * Season foods with herbs instead of salt when you cook. * Break the smoking habit. Enroll in a stop-smoking program to improve your chances of success. * Limit fatty foods. * Check your lipid levels regularly. (Your doctor can show you how to do this.) * Build up your activity according to your doctor's recommendation. * Ask your doctor when it's okay to resume sexual activity. * Tell your doctor about any erectile dysfunction (ED) medication you are taking. Some ED medications are not safe if you take certain heart medications. * Try to manage stress. Follow Up: It is important for you to keep your follow up appointments with your medical provider. Current Hospital Diet Patient's current hospital diet: AHA Diet (Heart Healthy), Diabetes Type 2 Diet , Low Sodium Diet (2gm Na), Renal Diet Discharge Diet Recommended Diet: Low Sodium Diet (2gm Na), Diabetes Type 2 Diet, Renal Diet Pending Studies Studies pending at discharge: no Laboratory Results Hemoglobin A1c Test 11/18/16 06:11 Range/Units Estimated Average Glucose 180 mg/dl Hemoglobin A1c 7.9 H 4.5-5.6 % Lipid Panel Test 11/18/16 06:11 Range/Units Triglycerides Level 176 H 0-150 mg/dl Cholesterol Level 179 0-200 mg/dl HDL Cholesterol 35 mg/dl Cholesterol/HDL Ratio 5.1 LDL Cholesterol, Calculated 109 mg/dl Medical Emergencies . Who to Call and When: Medical Emergencies: If at any time you feel your situation is an emergency, please call 911 immediately. Call 911 immediately or go to your nearest Emergency Room if you experience any of the following: Warning Signs and Symptoms of a Heart Attack * Chest pain that is not relieved by medication * Shortness of breath . Non-Emergent Contact Non-Emergency issues call your: Primary Care Provider, Hose Mender, Inter Com Servicer . . "Provider Documentation" section prepared by Chepe Camarillo. . AMI Core Measures Reason no ASA as I/P: Treatment provided - N/A Reason no ASA at D/C: Treatment provided - N/A Reason no statin as I/P: Treatment provided - N/A Reason no statin at D/C: Treatment provided - N/A VTE Core Measure Inpt VTE Proph given/why not?: Unfractionated heparin SQ
[2016-11-23 14:05] VITALS: BP 100/57; PULSE 83; TEMP 37; O2SAT 96
--- NOTE | 2016-11-23 14:47 | Discharge Summary ---
Discharge Summary Date of Service Nov 23, 2016. Discharge Summary Admission Date: Nov 17, 2016 at 20:20 Discharge Date: Nov 23, 2016 Discharge Disposition: Home Principal Diagnosis: NSTEMI Problems/Secondary Diagnoses: DEMETRA on CKD HAP (presumed gram negative) Immunizations: Have You Had Influenza Vaccine: Yes Influenza Vaccine Date: May 16, 2006 History of Tetanus Vaccine?: Yes History of Pneumococcal: No History of Hepatitis B Vaccine: No Procedures: Procedure Note Procedure Date Nov 17, 2016. Pre-Procedure Diagnosis Non STEMI AUC Score 8 Post-Procedure Diagnosis Severe CAD, Successful PCI, Normal Intracardiac Pressures Procedure(s) Performed Coronary Angiography, Left Heart Cath, Drug Eluting Stent Side Show Entertainer Dr. Childers Metalizer Field Operation(s) Hazel Estimated Blood Loss 22 Medication(s) Fentanyl, Heparin, Nicardipine, Nitroglycerin, Versed, Lidocaine 1% Ticagrelor Summary of Findings Indication: High risk NSTEMI/Heart Alert Access: 6Fr Slender Right Radial Artery Catheters: [place], EBU 3.5 Findings: LM - Luminal irregularities LAD - Proximal to mid 50-60% diffuse stenosis, luminal irregularities in mid and distal segments before wrapping around apex. 99% 1st diagonal ostial stenosis with suggestion of thrombus (suspect culprit lesion) Circumflex - Moderate caliber, co-dominant vessel, focal 95% stenosis at take- off of moderate OM1, distal segment with diffuse 70-80% stenosis prior to distal L-PLB. OM1 with 50 ostial stenosis. RCA - Small, co-dominant, 20-30% proximal stenosis, PDA very small vessel with luminal irregularities. LVEDP - 15 -- PCI -- Antithrombotic therapy: Heparin, Ticagrelor Procedure: Left main cannulated with EBU 3.5 guide BMW wire passed across lesion into distal circumflex/L-PLB P[place]ater passed into OM1 Distal, mid circumflex lesion predilated with 2.0 compliant balloon With predilation dissection noted in distal vessel with resultant chest pain, inferior ST elevations 2.25 x 22 Resolute ELAINE placed into distal circumflex 2.5 x 30 Resolute ELAINE placed in mid-segment across OM1 take-off and overlapping distally with prior stent Stent post-dilated with stent balloon 2.75 noncompliant balloon Very distal circumflex, PLB gently ballooned with 2.0 balloon. IC vasodilators administered for spasm Post procedure LAURA 3 flow, stent well expanded with minimal residual stenosis and no apparent residual dissection or cardiac complications. Arterial Closure: TR Band Summary: 1. High-risk NSTEMI 2. Multivessel coronary artery disease - 95% mid circumflex, 70-80% distal circumflex, 50% ostial OM1 - 50-60% proximal-mid LAD - 99% very small 1st diagonal 3. Normal intracardiac filling pressure 4. Successful PCI of mid to distal circumflex with 2 overlapping drug-eluting stents (2.5 x 30, 2.25 x 22 Resolute) Recommendations: Admit to telemetry for continued monitoring Loaded with Ticagrelor in the laborer bituminous paving Resume heparin infusion for (?acute) small 1st diagonal after TR band off/ hemostasis Continue IV fluids overnight Plan to transition to Clopidogrel prior to discharge Continue dual-antiplatelet therapy with Clopidogrel/ASA for 1 year Trend troponins until peak, Check Echo Uptitrate beta-duke as able High-dose statin Consult cardiac Rehab 1st diagonal is too small for PCI -- medical management Plan for further ischemic testing of LAD -- likely outpatient stress echo: Interpretation Summary * Name: LINNETTE STEPHEN Study Date: 11/18/2016 06:49 AM BP: 133/75 mmHg * Patient Location: .2E\S\E201\S\1 HR: 101 * : 1945 (M/d/yyyy) Gender: Female Height: 66 in * Age: 71 yrs Ethnicity: [place] Weight: 164 lb * Ordering Physician: Sonny Childers * Referring Physician: Self, Referred * Performed By: Roman Cha RCS * * Reason For Study: AMI * BSA: 1.8 m2 * Mildly reduced overall left ventricular systolic function. * Inferior, posterior, lateral LV hypokinesis. * Left ventricular diastolic dysfunction. * Mild aortic regurgitation. * Trace mitral and tricuspid regurgitation. * -- Conclusions -- * Aortic valve sclerosis mild, without significant aortic valvular stenosis. Procedure Details * A complete two-dimensional transthoracic echocardiogram was performed (2D, M- mode, Doppler and color flow Doppler). * A contrast injection of Definity was performed to improve assessment of LV function. * Contrast was injected into an intravenous site in the left arm. * One vial of Definity ultrasound contrast was diluted in normal saline to a total volume of 10 ml. A total of '2' ml of solution was administered during imaging. * Lot # [id number] of Definity utilized for procedure. * Expiration date 1FEB18. * The attending nurse who injected the contrast agent was Anjali Shah RN. Left Ventricle * The left ventricle is normal in size. * There is normal left ventricular wall thickness. * Ejection Fraction = 50-55%. * A full diastolic examination was done with clinical findings of Class I diastolic dysfunction. * Left ventricular systolic function is mildly reduced. * Inferior, posterior, and lateral hypokinesis. Right Ventricle * The right ventricle is normal in size and function. Atria * The left atrial size is normal. * Right atrial size is normal. Mitral Valve * Thickened anterior leaflet * There is no mitral valve stenosis. * There is trace mitral regurgitation. Tricuspid Valve * The tricuspid valve is not well visualized. * No significant tricuspid stenosis. * There is trace tricuspid regurgitation. Aortic Valve * The aortic valve is not well visualized. * The aortic valve is trileaflet. * Aortic valve sclerosis mild, without significant aortic valvular stenosis. * Mild aortic regurgitation. Pulmonic Valve * The pulmonic valve is not well visualized. * The pulmonary valve is inadequately visualized, but the Doppler data is adequate for interpretation. * There is no significant pulmonary regurgitation. Great Vessels * The aortic root is normal size. Pericardium/Pleural * There is no pericardial effusion. Great Vessels * Normal inferior vena cava diameter and respiratory variation suggests normal central venous pressure. CHEST ONE VIEW PORTABLE CLINICAL HISTORY: CHF COMPARISON STUDY: 11/20/2016 FINDINGS: The cardiac and mediastinal contours remain stable. There is been near interval complete resolution of the previously described interstitial pulmonary edema. There are equivocal subtle left basal airspace opacities.. Trace subpulmonic pleural effusions are suspected.[ IMPRESSION: Resolving pulmonary edema. Electronically signed by: Elieser Cha M.D. 11/22/2016 7:05 AM Dictated Date/Time: 11/22/2016 7:[address] WITHOUT CONTRAST CT DOSE: 422.19 mGy.cm HISTORY: Dyspnea cp TECHNIQUE: Multiaxial CT images of the chest were performed without contrast. COMPARISON: None. FINDINGS: Bibasilar interstitial infiltrative change. Infiltrative change of the right upper lobe as well as components of the lingula. Mild infiltrative change in interstitial basis of the pulmonary apices. No regions of consolidation. No significant parenchymal nodularity. Several reactive mediastinal and/or hilar nodes. IMPRESSION: Diffuse bilateral parenchymal interstitial change. Electronically signed by: Jamison Valencia M.D. 11/18/2016 6:39 AM Hemoglobin A1c Test 11/18/16 06:11 Range/Units Estimated Average Glucose 180 mg/dl Hemoglobin A1c 7.9 H 4.5-5.6 % Lipid Panel Test 11/18/16 06:11 Range/Units Triglycerides Level 176 H 0-150 mg/dl Cholesterol Level 179 0-200 mg/dl HDL Cholesterol 35 mg/dl Cholesterol/HDL Ratio 5.1 LDL Cholesterol, Calculated 109 mg/dl Last Resulted CBC 11/22/16 05:17 Red Blood Count 3.30, Mean Corpuscular Volume 80.0, Mean Corpuscular Hemoglobin 26.4, Mean Corpuscular Hemoglobin Concent 33.0, Mean Platelet Volume 10.9, Neutrophils (%) (Auto) 83.7, Lymphocytes (%) (Auto) 6.6, Monocytes (%) (Auto) 7.7, Eosinophils (%) (Auto) 1.2, Basophils (%) (Auto) 0.3, Neutrophils # (Auto) 9.58, Lymphocytes # (Auto) 0.75, Monocytes # (Auto) 0.88, Eosinophils # (Auto) 0.14, Basophils # (Auto) 0.03 Last Resulted BMP 11/23/16 07:25 Consultations: cardiology nephrology Medication Reconciliation New Medications: Furosemide (Lasix) 20 Mg Tab 20 MG PO DAILY, #30 TAB Nitroglycerin (Nitrostat) 0.4 Mg/1 Tab Subl 1 TAB SL UD PRN for Chest Pain, #30 TAB use 1 tab under the tongue up to every 5 minutes as needed for chest pain; if 3rd dose needed call 911 Aspirin (Aspirin EC Low Dose) 81 Mg Ectab 81 MG PO QAM, #30 TAB Atorvastatin (Atorvastatin Calcium) 40 Mg Tab 80 MG PO QAM, #30 TAB Clopidogrel Bisulfate (Clopidogrel) 75 Mg Tab 75 MG PO QAM, #30 TAB Levofloxacin (Levofloxacin) 500 Mg Tab 500 MG PO UD, #1 TAB take on 11/24 Metoprolol Tartrate (Lopressor) 25 Mg Tab 25 MG PO Q12, #60 TAB Sodium Bicarbonate (Sodium Bicarbonate) 650 Mg Tab 650 MG PO BID, #30 TAB Tiotropium [place] (Spiriva Handihaler) 5 Puff/90 Mcg Aerp 1 PUFF INH QAM, #1 INHALER Continued Medications: Acetaminophen (Tylenol) 500 Mg Tab 500 MG PO DAILY PRN for Pain, TAB Alprazolam (Xanax) 0.5 Mg Tab 0.25 MG PO HS PRN for Anxiety/Agitation, TAB Escitalopram (Lexapro) 10 Mg Tab 10 MG PO QPM, TAB Gabapentin (Neurontin) 300 Mg Cap 300 MG PO HS, CAP Insulin Aspart (Novolog Flexpen) 100 Units/Ml Inj 10 UNITS SC AFTERNOON TAKE 10 UNITS SC IN THE AFTERNOON Insulin Glargine (Lantus Solostar) 100 Unit/Ml Inj 10 UNITS SC QAM, PEN Insulin Glargine (Lantus Solostar) 100 Unit/Ml Inj 20 UNITS SC QPM, PEN Mometasone Furoate-Formoterol (Dulera 100/5 Mcg) 1 Aer Aer 2 PUFFS INH BID for 30 Days, #13 GM 2 Refills Omeprazole (Prilosec) 20 Mg Cap 20 MG PO BID Discharge Exam Physical Exam: General Appearance: no apparent distress Eyes: EOMI ENT: hearing grossly normal Neck: trachea midline Respiratory/Chest: no respiratory distress, no accessory muscle use Extremities: normal inspection Neurologic/Psychiatric: radiologic therapist II-XII nml as tested, alert, normal mood/affect Skin: normal color, warm/dry Hospital Course NSTEMI - ASA, clopidogrel, Atorvastatin 80mg, metoprolol, not on ACEi/ARB due to DEMETRA/ fairly advanced CKD. - cardiology f/u 3-4wks - stable for home Acute heart failure with preserved ejection fraction (LVEF 50-55%) - -improving -ongoing lasix @ 20mg daily -f/u [facility] 11/25 Acute hypoxic respiratory failure - aim sats O2 >90% COPD healthcare associated pneumonia (presumed gram negatives) - continue dulera. Continue Spiriva (new this admission). - levaquin x 1 more dose Acute kidney injury on Chronic kidney disease stage 4 - -likely atn, poor forward flow after WA/CHF, and some contrast nephropathy -ongoing follow up -appreciate nephrology input -[facility] 11/25 Hyponatremia - hyperglycemia + low effective blood volume (heart failure, DEMETRA) Peptic ulcer disease / GERD - continue PPI. OK to dc additional H2 T2DM - sugars reasonable control, continue current regimen Diabetic neuropathy - Continue gabapentin Smoking - smoking cessation information on d/c - discussed importance of stopping by different providers on numerous occasions - consider Wellbutrin outpatient Anxiety -Continue Lexapro 10 mg VTE Prophylaxis - Heparin SQ utilized Code - Full stable for home Total Time Spent: Greater than 30 minutes This includes examination of the patient, discharge planning, medication reconciliation, and communication with other providers. Discharge Instructions Please refer to the electronic Patient Visit Report (Discharge Instructions) for additional information. Additional Copies To José Miguel Oliver M.D.; Sanchez Barroso M.D.
[2017-02-19] MEDS ORDERED: POTA20TA16 PO (07:17)
[2017-02-19] MEDS ORDERED: GABA-113 PO (07:17)
[2017-02-19] MEDS ORDERED: ATOR-24 PO (07:17)
[2017-02-19] MEDS ORDERED: WARF5TAB7 PO (07:17)
[2017-02-19] MEDS ORDERED: FRS/40 PO ×2 (07:17→07:52)
[2017-02-19] MEDS ORDERED: FERR18TA PO (07:17)
[2017-02-19] MEDS ORDERED: PRLSR20 PO (07:17)
[2017-03-12] MEDS ORDERED: PLAVIX75 PO (06:51)
[2017-03-12] MEDS ORDERED: MOME100A INH (06:51)
[2017-03-12] MEDS ORDERED: INSU1INJ2 SC (06:51)
[2017-03-12] MEDS ORDERED: FURO-85 PO (06:51)
[2017-03-12] MEDS ORDERED: METO50TA16 PO (06:51)
[2017-03-12] MEDS ORDERED: CRD200 PO (06:51)
== END 2016-11-23 14:55 | disposition home or self-care (01) | DRG 246 ==
LOC: ENRESERVDT → ENRESERVTM → C.EDB 16:45 → C.2E 20:20 → C.MS2W 11-22 11:41
PROVIDERS: ADMIT Hospitalist; ATTEND Family Medicine
PROC: B210YZZ Fluoroscopy of Single Coronary Artery using Other Contrast (ICD-10-PCS; principal; 2016-11-17 18:23)
PROC: 027135Z Dilation of Coronary Artery, Two Arteries with Two Drug-eluting Intraluminal Devices, Percutaneous Approach (ICD-10-PCS; principal; 2016-11-17 18:23)
PROC: 4A023N7 Measurement of Cardiac Sampling and Pressure, Left Heart, Percutaneous Approach (ICD-10-PCS; principal; 2016-11-17 18:23)
DX: I21.4 Non-ST elevation (NSTEMI) myocardial infarction (principal); I50.21 Acute systolic (congestive) heart failure; N18.4 Chronic kidney disease, stage 4 (severe); N17.9 Acute kidney failure, unspecified; E87.2 Acidosis; E87.1 Hypo-osmolality and hyponatremia; F17.200 Nicotine dependence, unspecified, uncomplicated; I24.9 Acute ischemic heart disease, unspecified; E11.21 Type 2 diabetes mellitus with diabetic nephropathy; I10 Essential (primary) hypertension; E78.5 Hyperlipidemia, unspecified; E11.40 Type 2 diabetes mellitus with diabetic neuropathy, unspecified; I73.9 Peripheral vascular disease, unspecified; J44.9 Chronic obstructive pulmonary disease, unspecified; F32.9 Major depressive disorder, single episode, unspecified; Z87.11 Personal history of peptic ulcer disease; I25.2 Old myocardial infarction; Z87.01 Personal history of pneumonia (recurrent); Z79.4 Long term (current) use of insulin; Z82.49 Family history of ischemic heart disease and other diseases of the circulatory system

== ENCOUNTER → 2016-11-25 | Outpatient (CLI) | payer OTHER ==
[~2016-11-25] MED LIST changes: +ASPEC81 PO; +ATOR-24 PO; +CRD200 PO; +FERR18TA PO; +FRS/40 PO; +FURO-85 PO; +GABA-113 PO; +INSU1INJ2 SC; +LPR25 PO; +LPT40 PO; +LVQ500 PO; +METO50TA16 PO; +MULT-910 PO; +NTRGSL/4 UT; +NTRGSL4 SL; +PLAVIX75 PO; +PLV75 PO; +POTA20TA16 PO; +PRLSR20 PO; -SIMV40TA2 PO; +SODI650T8 PO; +SODI650T9 PO; +SPRIN INH; +TRAM-10 PO; +WARF5TAB7 PO
[2016-11-25 12:39] LABS: CALCIUM 8.8 mg/dl (8.5-10.1)
[2016-11-25 12:53] LABS: BLOOD UREA NITROGEN 34 mg/dl (7-18); CARBON DIOXIDE 22 mmol/L (21-32); CHLORIDE 101 mmol/L (98-107); GLUCOSE 200 mg/dl (70-99); MAGNESIUM 2.3 mg/dl (1.8-2.4); PHOSPHORUS 2.9 mg/dl (2.5-4.9); POTASSIUM 3.7 mmol/L (3.5-5.1); SODIUM 135 mmol/L (136-145)
== END | disposition home or self-care (01) ==
LOC: C.LABBFT 10:35
PROVIDERS: ATTEND Internal Medicine Nephrology
DX: N17.9 Acute kidney failure, unspecified (principal)

== ENCOUNTER → 2016-12-05 | Outpatient (CLI) | payer OTHER ==
--- NOTE | 2016-12-05 11:53 | DIAGNOSTIC IMAGING REPORT ---
TWO VIEW CHEST CLINICAL HISTORY: Dyspnea. FINDINGS: PA and lateral chest radiographs are compared to study dated 11/22/2016 and correlated with chest CT dated 11/17/2016. The heart is top normal for projection and there is mild atherosclerotic calcification of the thoracic aorta. The pulmonary vasculature is noncongested. Chronic interstitial thickening is unchanged. Trace pleural effusions are identified and there are bibasilar airspace opacities. The lung bases have cleared as compared to 11/22/2016. There is no pneumothorax. The skeletal structures are osteopenic. Degenerative change and hyperkyphosis are noted in the thoracic spine. IMPRESSION: 1. There are mild bibasilar airspace opacities, which have cleared from 11/22/2016. This likely represents atelectasis. Cortical clinically for evidence of a superimposed infectious/inflammatory pneumonitis. 2. Trace pleural effusions. Electronically signed by: Piyush Fox M.D. 12/05/2016 11:52 AM Dictated Date/Time: 12/05/2016 11:50 AM
== END | disposition home or self-care (01) ==
LOC: C.RAD1850 11:03
PROVIDERS: ATTEND Internal Medicine Interventional Cardiology
DX: R06.00 Dyspnea, unspecified (principal); R91.8 Other nonspecific abnormal finding of lung field

== ENCOUNTER → 2016-12-08 | Outpatient (CLI) | payer OTHER ==
[2016-12-08 12:23] LABS: HEMATOCRIT 31.5 % (37-47); MEAN CELL VOLUME 86.8 fL (80-100); MEAN CORPUSCULAR HEMOGLOBIN 25.6 pg (25-34); MEAN CORPUSCULAR HGB CONC 29.5 g/dl (32-36); MEAN PLATELET VOLUME 10.2 fL (7.4-10.4); PLATELET COUNT 419 K/uL (130-400); RED BLOOD COUNT 3.63 M/uL (4.2-5.4); WHITE BLOOD COUNT 8.54 K/uL (4.8-10.8)
[2016-12-08 12:53] LABS: URINE APPEARANCE CLEAR (CLEAR); URINE BILIRUBIN NEG (NEG); URINE COLOR YELLOW; URINE EPITHELIAL CELL AUTO 20-30 /lpf (0-5); URINE NITRITE NEG (NEG); URINE SPECIFIC GRAVITY 1.009 (1.000-1.030); UROBILINOGEN NEG (NEG)
[2016-12-08 12:55] LABS: MANUAL MICROSCOPIC REQUIRED? NO; REVIEW REQ? NO
[2016-12-08 13:33] LABS: BLOOD UREA NITROGEN 22 mg/dl (7-18); CALCIUM 8.8 mg/dl (8.5-10.1); CARBON DIOXIDE 26 mmol/L (21-32); CHLORIDE 105 mmol/L (98-107); GLUCOSE 258 mg/dl (70-99); POTASSIUM 3.9 mmol/L (3.5-5.1); SODIUM 138 mmol/L (136-145)
[2016-12-08 13:39] LABS: FERRITIN 41.1 ng/ml (8.0-388.0); PHOSPHORUS 3.1 mg/dl (2.5-4.9); TOTAL IRON BINDING CAPACITY 273 mcg/dl (250-450)
[2016-12-08 13:40] LABS: URINE PROTIEN/CREAT RATIO 0.3 (0-0.2); URINE TOTAL PROTEIN 17.1 mg/dl (0-11.9)
--- NOTE | 2016-12-12 11:19 | CODING QUERY MEDICAL NECESSITY ---
CQSUPPORTING DIAGNOSIS NEEDED A supporting diagnosis is required for the test/procedure performed on this patient in order for us to be reimbursed by the patient's insurance. Please provide a supporting diagnosis for the following test/procedure listed below next to the test name along with your signature. *If there is no additional diagnosis for this patient that would support the following test/procedure please document that below next to the test/procedure. Test(s)/Procedure(s) that require a supporting diagnosis: DOS 12/08/16 VITAMIN B12 VITAMIN D Provider Signature: Date: Thank you iPna Rodriguez Health Information Management Once completed, please kindly fax back to [phone] For questions please call [phone]
== END | disposition home or self-care (01) ==
LOC: C.LABBFT 11:05
PROVIDERS: ATTEND Internal Medicine Nephrology
DX: R60.9 Edema, unspecified (principal); D64.9 Anemia, unspecified; N17.9 Acute kidney failure, unspecified; N18.3 Chronic kidney disease, stage 3 (moderate); E55.9 Vitamin D deficiency, unspecified; I21.4 Non-ST elevation (NSTEMI) myocardial infarction; R06.00 Dyspnea, unspecified

== ENCOUNTER → 2016-12-30 | Outpatient (CLI) | payer OTHER ==
[~2016-12-30] MED LIST changes: +REGADENOSON 0.4 MG/5 ML SYR ONE
--- NOTE | 2017-01-01 22:48 | MYOCARDIAL PERFUSION SCAN ---
TIME: 1702 p.m. ORDERING PHYSICIAN: Dr. Sonny Childers. PCP: Dr. Sanchez Barroso. PROCEDURE: 1. Myocardial perfusion study performed in multiple views/images. 2. Lexiscan stress ECG. INDICATIONS: 1. Dyspnea. 2. Coronary artery disease. 3. Non-ST elevation myocardial infarction. CONSENT: Informed written consent was obtained. PROCEDURAL DETAILS: For the stress portion of the study, Lexiscan 0.4 mg was intravenously administered over 10-15 seconds followed by saline flush. This was followed by 32 mCi of technetium-99m Cardiolite injection intravenously at 1325 p.m. on 12/30/2016. Thirty minutes following injection, imaging of the heart was performed in multiple projections. For the rest portion of the study, 10 mCi of technetium-99m Cardiolite was injected intravenously at 11:20 a.m. on the same day. One hour following the injection, imaging of the heart was performed in the same projections. LEXISCAN ELECTROCARDIOGRAM: Baseline ECG demonstrated atrial fibrillation at 82 beats per minute. Lexiscan ECG demonstrated no significant ST changes. There are no significant pauses. Rhythm remained atrial fibrillation. There was Lexiscan induced neck discomfort, dyspnea, and diaphoresis. Aminophylline 125 mg IV was administered. Maximum heart rate was 120 beats per minute representing 81% maximum predicted heart rate. Resting blood pressure was 111/65 mmHg. Peak blood pressure was 120/72 mmHg. FINDINGS: Rotating raw imaging demonstrated no significant motion artifact. The heart size appeared normal. There was no significant lung uptake. Myocardial perfusion demonstrated a small area of moderately reduced uptake in the inferior and inferolateral wall from base to mid ventricle. This was a fixed defect in post-stress and rest imaging. There was no significant reversible defect noted. Ejection fraction 51%. Wall motion appeared normal. There was no significant transient ischemic dilation. IMPRESSION: 1. Small base to mid inferior and inferolateral infarct, suggesting circumflex territory. 2. No significant ischemic changes suggested. 3. Lexiscan-induced dyspnea, diaphoresis, and neck discomfort. 4. Low normal left ventricular systolic function. Ejection fraction 51%. 5. Wall motion appeared normal; however, rhythm was atrial fibrillation and therefore gated images are difficult. 6. Nondiagnostic Lexiscan electrocardiogram.
== END | disposition home or self-care (01) ==
LOC: C.NUCL 10:23
PROVIDERS: ATTEND Internal Medicine Interventional Cardiology
DX: I21.4 Non-ST elevation (NSTEMI) myocardial infarction (principal); R06.00 Dyspnea, unspecified

== ENCOUNTER → 2017-01-16 | Outpatient (CLI) | payer OTHER ==
[~2017-01-16] MED LIST changes: -REGADENOSON 0.4 MG/5 ML SYR ONE
[2017-01-16 12:04] LABS: HEMATOCRIT 30.7 % (37-47); MEAN CELL VOLUME 83.2 fL (80-100); MEAN CORPUSCULAR HEMOGLOBIN 25.2 pg (25-34); MEAN CORPUSCULAR HGB CONC 30.3 g/dl (32-36); MEAN PLATELET VOLUME 10.7 fL (7.4-10.4); PLATELET COUNT 355 K/uL (130-400); RED BLOOD COUNT 3.69 M/uL (4.2-5.4); WHITE BLOOD COUNT 8.04 K/uL (4.8-10.8)
[2017-01-16 12:13] LABS: BLOOD UREA NITROGEN 20 mg/dl (7-18); CARBON DIOXIDE 21 mmol/L (21-32); CHLORIDE 101 mmol/L (98-107); GLUCOSE 264 mg/dl (70-99); POTASSIUM 3.8 mmol/L (3.5-5.1); SODIUM 134 mmol/L (136-145)
[2017-01-16 12:15] LABS: CALCIUM 8.9 mg/dl (8.5-10.1)
[2017-01-16 12:18] LABS: FERRITIN 31.8 ng/ml (8.0-388.0); PHOSPHORUS 3.5 mg/dl (2.5-4.9); TOTAL IRON BINDING CAPACITY 286 mcg/dl (250-450)
== END | disposition home or self-care (01) ==
LOC: C.LABBFT 10:15
PROVIDERS: ATTEND Internal Medicine Interventional Cardiology
DX: R60.9 Edema, unspecified (principal); D64.9 Anemia, unspecified; N18.3 Chronic kidney disease, stage 3 (moderate); E61.1 Iron deficiency; E55.9 Vitamin D deficiency, unspecified; I48.91 Unspecified atrial fibrillation

== ENCOUNTER → 2017-02-04 | Outpatient (CLI) | payer OTHER ==
[~2017-02-04] MED LIST changes: +INSU1INJ2; -INSU1INJ2 SC; -MULT-910 PO; -NTRGSL/4 UT; -SODI650T8 PO; -TRAM-10 PO
[2017-02-04 17:44] LABS: BLOOD UREA NITROGEN 32 mg/dl (7-18); BUN/CREATININE RATIO 11.4 (10-20); CALCIUM 8.8 mg/dl (8.5-10.1); CARBON DIOXIDE 25 mmol/L (21-32); CHLORIDE 99 mmol/L (98-107); GLUCOSE 232 mg/dl (70-99); POTASSIUM 2.8 mmol/L (3.5-5.1); SODIUM 134 mmol/L (136-145)
== END | disposition home or self-care (01) ==
LOC: C.LABBFT 12:48
PROVIDERS: ATTEND Physician Assistant
DX: I48.91 Unspecified atrial fibrillation (principal)

== ENCOUNTER → 2017-02-09 | Outpatient (CLI) | payer OTHER ==
[2017-02-09 15:03] LABS: ESTIMATED AVERAGE GLUCOSE 217 mg/dl; HA1C FLAG Normal (Normal)
[2017-02-09 15:14] LABS: BLOOD UREA NITROGEN 32 mg/dl (7-18); BUN/CREATININE RATIO 11.9 (10-20); CALCIUM 9.5 mg/dl (8.5-10.1); CARBON DIOXIDE 23 mmol/L (21-32); CHLORIDE 97 mmol/L (98-107); GLUCOSE 264 mg/dl (70-99); POTASSIUM 3.4 mmol/L (3.5-5.1); SODIUM 132 mmol/L (136-145)
[2017-02-09 15:17] LABS: CHOLESTEROL 80 mg/dl (0-200); CHOLESTEROL/HDL RATIO 2.6; HDL CHOLESTEROL 31 mg/dl; LDL CHOLESTEROL CALCULATED 22 mg/dl; TRIGLYCERIDES 133 mg/dl (0-150); VERY LOW DENSITY LIPOPROT CALC 27 mg/dl
== END | disposition home or self-care (01) ==
LOC: C.LAB1850 13:42
PROVIDERS: ATTEND Physician Assistant
DX: E11.29 Type 2 diabetes mellitus with other diabetic kidney complication (principal); N28.9 Disorder of kidney and ureter, unspecified

== ENCOUNTER → 2017-02-19 | Day surgery (SDC) | payer OTHER ==
[~2017-02-19] VITALS: Ht 167.6 cm; Wt 78.6 kg
[~2017-02-19] MED LIST changes: +LIDOCAINE HCL 2% 2 ML VIAL (20MG/ML) ONE; +PROPOFOL IV EMULSION 10 MG/ML 20 ML VIAL IV ONE
[2017-02-19 07:17] VITALS: Ht 167.6 cm; Wt 78.6 kg
[2017-02-19 07:18] VITALS: BP 138/67; PULSE 66; TEMP 36.5; O2SAT 99
[2017-02-19 07:32] VITALS: BP 151/71; PULSE 79; O2SAT 100
[2017-02-19 07:36] VITALS: BP 145/68; PULSE 79; O2SAT 100
[2017-02-19 07:41] VITALS: BP 134/53; PULSE 79; O2SAT 100
--- NOTE | 2017-02-19 07:46 | Procedure Note ---
Procedure Note Procedure Date Feb 19, 2017. Procedure Description Procedure Name: External Electrical Cardioversion Procedure time out: patient ID confirmed, correct procedure Consent obtained: written Time of procedure: 07:35 Performed by: attending Indications: therapeutic Contraindications: none Description: Patient with persistent symptomatic atrial fibrillation. Has been on therapeutic anticoagulation for last 1 month. Informed consent obtained. Anesthesia (propofol) provided by Dr. Quick. External pads placed in AP position. Successful cardioversion with 1 synchronized shock at 200J. Repeat ECG confirmed sinus rhythm in the 70s. Complications: none Patient tolerated procedure: well Post-procedure vital signs: reviewed and stable Comments: 1. Successful Electrical Cardioversion.
--- NOTE | 2017-02-19 07:57 | Discharge Instructions ---
Discharge Instructions Procedure Procedure Date: Feb 19, 2017. Reason for Visit: A Fib, W/Anesthesia *. Discharge Discharge Date: Feb 19, 2017. Discharge Diagnosis: Atrial Fibrillation Last Recorded Wt (Kilograms): 78.6 Anesthesia Post Anesthesia Instructions: If you have had General Anesthesia or IV Sedation: * Do not drive today. * Resume driving when surgeon permits. * Do not make important decisions or sign legal documents today. * Call surgeon for: 1. Temperature elevations greater than 101 degrees F. 2. Uncontrollable pain. 3. Excessive bleeding. 4. Persistent nausea and vomiting. 5. Medication intolerance (nausea, vomiting or rash). * For nausea and vomiting use only clear liquids such as: tea, soda, bouillon until nausea subsides, then gradually increase diet as tolerated. * If you have any concerns or questions, call your surgeon's office. If physician is unavailable and it is an emergency, call 911 or go to the nearest emergency room. Instructions Activity Recommendations: limitations as noted below Recommended Home Diet: resume previous diet Allergies: Coded Allergies: No Known Allergies (Verified , 11/17/16) Follow Up Follow-up with: Dr. Childers in 3-4 weeks. [facility] Recommendations: Call your doctor if: * Temperature above 101 degrees * Pain not relieved by pain medicine ordered * There is increased drainage or redness from any incision * You have any unanswered questions or concerns. Your Doctors Instructions noted above were prepared by provider Vinny Childers. Patient Signature Section: Patient Instructions Signature Page Jesenia Chappell Patient (or Guardian) Signature/Date: I have read and understand the instructions given to me by my caregivers. Caregiver/RN/Doctor Signature/Date: The above-named patient and/or guardian has received patient instructions on this date. + Original Patient Signature Page (only) stays with chart. Please make copy for patient.
[2017-02-19 08:15] VITALS: BP 145/75; PULSE 73; O2SAT 97
--- NOTE | 2017-02-19 10:11 | Anesthesiology Progress Note ---
Anesthesia Post Op Note Date & Time Feb 19, 2017 at 10:11 Vital Signs Pain Intensity: 0 Vital Signs Past 12 Hours Date Time Temp Pulse Resp B/P (MAP) Pulse Ox O2 Delivery O2 Flow Rate FiO2 02/19/17 08:15 73 16 145/75 (98) 97 Room Air 02/19/17 08:06 72 16 128/55 (79) 97 Room Air 02/19/17 07:56 77 16 130/50 (76) 97 Room Air 02/19/17 07:46 72 16 131/54 (79) 97 Room Air 02/19/17 07:41 79 16 134/53 100 Nasal Cannula 6 02/19/17 07:36 79 16 145/68 100 Nasal Cannula 6 02/19/17 07:32 79 16 151/71 100 Nasal Cannula 6 02/19/17 07:18 36.5 66 16 138/67 99 Room Air Notes Mental Status: alert / awake / arousable, participated in evaluation Pt Amnestic to Procedure: Yes Nausea / Vomiting: adequately controlled Pain: adequately controlled Airway Patency, RR, SpO2: stable & adequate BP & HR: stable & adequate Hydration State: stable & adequate Anesthetic Complications: no major complications apparent
== END | disposition home or self-care (01) ==
LOC: C.CATH 06:31
PROVIDERS: ATTEND Internal Medicine Interventional Cardiology
DX: I48.91 Unspecified atrial fibrillation (principal); E78.00 Pure hypercholesterolemia, unspecified; I50.30 Unspecified diastolic (congestive) heart failure; I25.10 Atherosclerotic heart disease of native coronary artery without angina pectoris; E78.5 Hyperlipidemia, unspecified; I13.0 Hypertensive heart and chronic kidney disease with heart failure and stage 1 through stage 4 chronic kidney disease, or unspecified chronic kidney disease; E08.21 Diabetes mellitus due to underlying condition with diabetic nephropathy; N18.9 Chronic kidney disease, unspecified; D63.1 Anemia in chronic kidney disease; J44.9 Chronic obstructive pulmonary disease, unspecified; F32.9 Major depressive disorder, single episode, unspecified; E11.42 Type 2 diabetes mellitus with diabetic polyneuropathy; K21.9 Gastro-esophageal reflux disease without esophagitis; I21.4 Non-ST elevation (NSTEMI) myocardial infarction; I73.9 Peripheral vascular disease, unspecified; I25.2 Old myocardial infarction; Z83.3 Family history of diabetes mellitus; Z80.1 Family history of malignant neoplasm of trachea, bronchus and lung; Z82.49 Family history of ischemic heart disease and other diseases of the circulatory system

== ENCOUNTER → 2017-02-26 | Outpatient (CLI) | payer OTHER ==
[~2017-02-26] MED LIST changes: -LIDOCAINE HCL 2% 2 ML VIAL (20MG/ML) ONE; -LPT40 PO; -LVQ500 PO; -PROPOFOL IV EMULSION 10 MG/ML 20 ML VIAL IV ONE; -SODI650T9 PO
[2017-02-26 16:59] LABS: ALT/SGPT 20 U/L (12-78); AST/SGOT 10 U/L (15-37); BLOOD UREA NITROGEN 20 mg/dl (7-18); BUN/CREATININE RATIO 8.3 (10-20); CALCIUM 9.3 mg/dl (8.5-10.1); CARBON DIOXIDE 26 mmol/L (21-32); CHLORIDE 103 mmol/L (98-107); GLUCOSE 132 mg/dl (70-99); POTASSIUM 4.2 mmol/L (3.5-5.1); SODIUM 137 mmol/L (136-145)
== END | disposition home or self-care (01) ==
LOC: C.LAB1850 15:09
PROVIDERS: ATTEND Physician Assistant
DX: I25.10 Atherosclerotic heart disease of native coronary artery without angina pectoris (principal); I48.91 Unspecified atrial fibrillation

== ENCOUNTER → 2017-03-12 | Day surgery (SDC) | payer OTHER ==
[~2017-03-12] VITALS: Ht 167.6 cm; Wt 80.0 kg
[~2017-03-12] MED LIST changes: +LIDOCAINE HCL 2% 2 ML VIAL (20MG/ML) ONE; +PROPOFOL IV EMULSION 10 MG/ML 20 ML VIAL IV ONE
[2017-03-12 07:18] VITALS: BP 131/70; TEMP 36.5; O2SAT 96; Ht 167.6 cm; Wt 80.0 kg
--- NOTE | 2017-03-12 07:31 | History & Physical Bridge Note ---
H&P Re-Evaluation Bridge Note: I have examined the patient, reviewed the History & Physical and in the interval since the performance of the History & Physical I have noted the following changes of clinical significance:INR is subtherapeutic x2. Discussed options with patient regarding continuing warfarin at a higher dose and returning for a cardioversion at a later time or SONIDO today. She has elected to proceed with a SONIDO. I discussed the R/B/A and she is willing to proceed. No changes noted
[2017-03-12 08:10] VITALS: BP 145/59; PULSE 75; O2SAT 95
[2017-03-12 08:15] VITALS: BP 124/60; PULSE 70; O2SAT 95
[2017-03-12 08:20] VITALS: BP 115/74; PULSE 59; O2SAT 95
--- NOTE | 2017-03-12 08:27 | Discharge Instructions ---
Discharge Instructions Procedure Procedure Date: Mar 12, 2017. Reason for Visit: A-Fib *Dr Edmonds Doing*. Discharge Discharge Date: Mar 12, 2017. Discharge Diagnosis: AF Last Recorded Wt (Kilograms): 80 Anesthesia Post Anesthesia Instructions: If you have had General Anesthesia or IV Sedation: * Do not drive today. * Resume driving when surgeon permits. * Do not make important decisions or sign legal documents today. * Call surgeon for: 1. Temperature elevations greater than 101 degrees F. 2. Uncontrollable pain. 3. Excessive bleeding. 4. Persistent nausea and vomiting. 5. Medication intolerance (nausea, vomiting or rash). * For nausea and vomiting use only clear liquids such as: tea, soda, bouillon until nausea subsides, then gradually increase diet as tolerated. * If you have any concerns or questions, call your surgeon's office. If physician is unavailable and it is an emergency, call 911 or go to the nearest emergency room. Instructions Activity Recommendations: limitations as noted below Recommended Home Diet: low sodium, diabetes diet Allergies: Coded Allergies: No Known Allergies (Verified , 11/17/16) Follow Up Additional Instructions: No driving for 24 hours [facility] Recommendations: Call your doctor if: * Temperature above 101 degrees * Pain not relieved by pain medicine ordered * There is increased drainage or redness from any incision * You have any unanswered questions or concerns. Your Doctors Instructions noted above were prepared by provider Vinny Edmonds. Patient Signature Section: Patient Instructions Signature Page Jesenia Chappell Patient (or Guardian) Signature/Date: I have read and understand the instructions given to me by my caregivers. Caregiver/RN/Doctor Signature/Date: The above-named patient and/or guardian has received patient instructions on this date. + Original Patient Signature Page (only) stays with chart. Please make copy for patient.
--- NOTE | 2017-03-12 09:14 | Anesthesiology Progress Note ---
Anesthesia Post Op Note Date & Time Mar 12, 2017 at 09:14 Vital Signs Pain Intensity: 0 Vital Signs Past 12 Hours Date Time Temp Pulse Resp B/P (MAP) Pulse Ox O2 Delivery O2 Flow Rate FiO2 03/12/17 09:00 87 18 165/98 (120) 95 Room Air 03/12/17 08:44 53 16 120/81 (94) 96 Room Air 03/12/17 08:34 52 16 124/81 (95) 96 Room Air 03/12/17 08:24 52 16 97/81 (86) 96 Room Air 03/12/17 08:20 59 18 115/74 95 Nasal Cannula 4 03/12/17 08:15 70 18 124/60 95 Nasal Cannula 4 03/12/17 08:10 75 18 145/59 95 Nasal Cannula 4 03/12/17 07:18 36.5 16 131/70 96 Room Air Notes Mental Status: alert / awake / arousable, participated in evaluation Pt Amnestic to Procedure: Yes Nausea / Vomiting: adequately controlled Pain: adequately controlled Airway Patency, RR, SpO2: stable & adequate BP & HR: stable & adequate Hydration State: stable & adequate Anesthetic Complications: no major complications apparent
[2017-03-12 09:30] VITALS: BP 128/82; PULSE 58; O2SAT 94
--- NOTE | 2017-03-12 12:37 | TEE ---
*NOTICE TO RECEIVING [employer] This information is strictly Confidential and protected under [place] law. [place] law prohibits you from making any further disclosure of this information unless further disclosure is expressly permitted by the written consent of the person to whom it pertains or is authorized by law. A general authorization for the release of medical or other information is not sufficient for this purpose. Hospital accepts no responsibility if the information is made available to any other person, INCLUDING THE PATIENT. Interpretation Summary * Name: LINNETTE STEPHEN Study Date: 03/12/2017 08:02 AM BP: 122/93 mmHg * Patient Location: [facility] HR: 57 * : 1945 (M/d/yyyy) Gender: Female Height: 66 in * Age: 71 yrs Ethnicity: [place] Weight: 176 lb * Ordering Physician: Christopher. Edmonds MD * Performed By: Liat Oden RCS * * Reason For Study: A-FIB * BSA: 1.9 m2 * -- Conclusions -- * Left ventricular systolic function is normal. * The left atrium is mildly dilated. * The right atrium is mildly dilated. * Mild aortic regurgitation. * There is mild mitral regurgitation. * There is mild to moderate tricuspid regurgitation. * No thrombus is detected in the left atrial appendage. Procedure Details * SONIDO Probe #2 utilized for procedure. * The study was performed in Cardiac Catheterization Lab. * Time out was conducted by the physician, nurse, and design tech with positive identification of patient and procedure. * Informed consent for Transesophageal Echocardiogram was obtained prior to the procedure. * An intravenous line was placed. A topical anesthetic agent was used for oropharangeal anesthesia. A bite block was inserted. * Sedation performed by the anesthesia department. * The patient's vital signs, including blood pressure, heart rate, pulse oximetry and cardiac rhythm were monitored throughout the procedure . * The posterior oropharynx was anesthetized using a topical anesthetic spray. A bite guard was inserted. * A multifrequency, multiplane transesopheageal echocardiographic endoscope was inserted and manipulated in the standard fashion to achieve multiplane views. * The transesophageal probe was passed without difficulty. * The patient tolerated the procedure well without evidence of orophangeal or esophageal trauma. * TIME OUT: 808 PROBE IN: 0810 PROBE OUT: 0817 Meds used by anesthesia: 40 mg Propofol 80 mg Lidocaine * A 2D transesophageal echocardiogram with color flow Doppler was performed. Left Ventricle * The left ventricle is grossly normal size. * Left ventricular systolic function is normal. Atria * The left atrium is mildly dilated. * No thrombus is detected in the left atrial appendage. * Spontaneous contrast in LA. * The right atrium is mildly dilated. Mitral Valve * The mitral valve anatomy is normal. * There is mild mitral regurgitation. Tricuspid Valve * The tricuspid valve anatomy is normal. * There is mild to moderate tricuspid regurgitation. Aortic Valve * The aortic valve is trileaflet. * Mild aortic regurgitation. Pericardium * There is no pericardial effusion.
--- NOTE | 2017-03-12 12:54 | Procedure Note ---
Procedure Note Date of Service Mar 12, 2017. Procedure Note Procedure performed: Cardioversion Staff patternmaker hand: Sonny Edmonds MD Indication: Mrs. Jesenia Chappell is a 71-year-old woman with a history of persistent atrial fibrillation. She previously undergone cardioversion but returned to atrial fibrillation. She has recently been started on amiodarone returns today for a 2nd cardioversion. She was noted to have subtherapeutic INR in the clinic and again today. A SONIDO was performed immediately prior to this procedure. Procedure in detail: Patient was informed of the risks benefits and alternatives to the intended procedure. She understood such which proceed. She was taken to the cardiac catheterization holding area. A general anesthetic was administered by the Anesthesiology Service. Once appropriately anesthetized, the patient underwent cardioversion using 200 joules delivered in a biphasic fashion. This returned the patient to a sinus rhythm. The patient tolerated procedure well there are no immediate complications. The patient was neurologically intact subsequent to the procedure. Impression: Successful cardioversion from atrial fibrillation to sinus rhythm.
== END | disposition home or self-care (01) ==
LOC: C.CATH 06:57
PROVIDERS: ATTEND Internal Medicine Clinical Cardiac Electrophysiology
DX: I48.91 Unspecified atrial fibrillation (principal); I25.10 Atherosclerotic heart disease of native coronary artery without angina pectoris; I50.30 Unspecified diastolic (congestive) heart failure; R06.00 Dyspnea, unspecified; R60.9 Edema, unspecified; E78.00 Pure hypercholesterolemia, unspecified; F41.9 Anxiety disorder, unspecified; M25.50 Pain in unspecified joint; E11.29 Type 2 diabetes mellitus with other diabetic kidney complication; E11.65 Type 2 diabetes mellitus with hyperglycemia; E11.21 Type 2 diabetes mellitus with diabetic nephropathy; E11.42 Type 2 diabetes mellitus with diabetic polyneuropathy; K21.9 Gastro-esophageal reflux disease without esophagitis; I21.4 Non-ST elevation (NSTEMI) myocardial infarction; N18.3 Chronic kidney disease, stage 3 (moderate); I12.9 Hypertensive chronic kidney disease with stage 1 through stage 4 chronic kidney disease, or unspecified chronic kidney disease; Z83.3 Family history of diabetes mellitus; Z80.1 Family history of malignant neoplasm of trachea, bronchus and lung; Z82.49 Family history of ischemic heart disease and other diseases of the circulatory system; F17.200 Nicotine dependence, unspecified, uncomplicated; D50.9 Iron deficiency anemia, unspecified; Z79.01 Long term (current) use of anticoagulants; J44.9 Chronic obstructive pulmonary disease, unspecified; Z79.82 Long term (current) use of aspirin; Z79.4 Long term (current) use of insulin

== ENCOUNTER → 2017-03-23 | Outpatient (CLI) | payer OTHER ==
[~2017-03-23] MED LIST changes: -FRS/40 PO; -LIDOCAINE HCL 2% 2 ML VIAL (20MG/ML) ONE; -LPR25 PO; -NVLGIPEN SC; -PLV75 PO; -PRLSR20 PO; -PROPOFOL IV EMULSION 10 MG/ML 20 ML VIAL IV ONE; -SPRIN INH
[2017-03-23 17:38] LABS: BLOOD UREA NITROGEN 31 mg/dl (7-18); BUN/CREATININE RATIO 9.2 (10-20); CALCIUM 9.3 mg/dl (8.5-10.1); CARBON DIOXIDE 30 mmol/L (21-32); CHLORIDE 98 mmol/L (98-107); GLUCOSE 194 mg/dl (70-99); POTASSIUM 2.8 mmol/L (3.5-5.1); SODIUM 135 mmol/L (136-145)
== END | disposition home or self-care (01) ==
LOC: C.LABBFT 14:42
PROVIDERS: ATTEND Nurse Practitioner
DX: R60.9 Edema, unspecified (principal)

== ENCOUNTER → 2017-03-27 | Outpatient (CLI) | payer OTHER ==
[2017-03-27 15:01] LABS: HEMATOCRIT 33.3 % (37-47); MEAN CELL VOLUME 76.6 fL (80-100); MEAN CORPUSCULAR HEMOGLOBIN 23.4 pg (25-34); MEAN CORPUSCULAR HGB CONC 30.6 g/dl (32-36); MEAN PLATELET VOLUME 9.9 fL (7.4-10.4); PLATELET COUNT 314 K/uL (130-400); RED BLOOD COUNT 4.35 M/uL (4.2-5.4); WHITE BLOOD COUNT 8.75 K/uL (4.8-10.8)
[2017-03-27 15:33] LABS: BLOOD UREA NITROGEN 37 mg/dl (7-18); BUN/CREATININE RATIO 11.7 (10-20); CALCIUM 8.9 mg/dl (8.5-10.1); CARBON DIOXIDE 28 mmol/L (21-32); CHLORIDE 92 mmol/L (98-107); GLUCOSE 93 mg/dl (70-99); PHOSPHORUS 3.4 mg/dl (2.5-4.9); POTASSIUM 2.9 mmol/L (3.5-5.1); SODIUM 129 mmol/L (136-145); TOTAL IRON BINDING CAPACITY 340 mcg/dl (250-450)
[2017-03-27 15:35] LABS: FERRITIN 35.4 ng/ml (8.0-388.0)
== END | disposition home or self-care (01) ==
LOC: C.LAB1850 13:43
PROVIDERS: ATTEND Internal Medicine Nephrology
DX: R60.9 Edema, unspecified (principal); D64.9 Anemia, unspecified; I10 Essential (primary) hypertension; N18.3 Chronic kidney disease, stage 3 (moderate); E55.9 Vitamin D deficiency, unspecified; I50.9 Heart failure, unspecified

== ENCOUNTER → 2017-04-02 | Outpatient (CLI) | payer OTHER ==
[2017-04-02 16:08] LABS: BLOOD UREA NITROGEN 30 mg/dl (7-18); BUN/CREATININE RATIO 10.7 (10-20); CALCIUM 9.5 mg/dl (8.5-10.1); CARBON DIOXIDE 33 mmol/L (21-32); CHLORIDE 97 mmol/L (98-107); GLUCOSE 125 mg/dl (70-99); MAGNESIUM 2.1 mg/dl (1.8-2.4); POTASSIUM 2.9 mmol/L (3.5-5.1); SODIUM 137 mmol/L (136-145)
[2017-04-02 16:09] LABS: PHOSPHORUS 3.3 mg/dl (2.5-4.9)
== END | disposition home or self-care (01) ==
LOC: C.LAB1850 14:12
PROVIDERS: ATTEND Internal Medicine Nephrology
DX: I50.30 Unspecified diastolic (congestive) heart failure (principal); D64.9 Anemia, unspecified; N17.9 Acute kidney failure, unspecified; E87.1 Hypo-osmolality and hyponatremia

== ENCOUNTER → 2017-04-10 | Outpatient (CLI) | payer OTHER ==
[2017-04-10 16:57] LABS: BLOOD UREA NITROGEN 35 mg/dl (7-18); BUN/CREATININE RATIO 11.6 (10-20); CALCIUM 9.7 mg/dl (8.5-10.1); CARBON DIOXIDE 30 mmol/L (21-32); CHLORIDE 94 mmol/L (98-107); GLUCOSE 154 mg/dl (70-99); PHOSPHORUS 3.1 mg/dl (2.5-4.9); POTASSIUM 3.9 mmol/L (3.5-5.1); SODIUM 131 mmol/L (136-145)
== END | disposition home or self-care (01) ==
LOC: C.LABBFT 13:37
PROVIDERS: ATTEND Internal Medicine Nephrology
DX: N17.9 Acute kidney failure, unspecified (principal)

== ENCOUNTER → 2017-07-07 | Outpatient (CLI) | payer OTHER ==
[~2017-07-07] MED LIST changes: -INSU1INJ2; +INSU1INJ2 SC; +MULT-910 PO; +NTRGSL/4 UT; +SODI650T8 PO; +TRAM-10 PO
[2017-07-07 14:39] LABS: HEMATOCRIT 35.5 % (37-47); MEAN CELL VOLUME 80.3 fL (80-100); MEAN CORPUSCULAR HEMOGLOBIN 25.1 pg (25-34); MEAN CORPUSCULAR HGB CONC 31.3 g/dl (32-36); MEAN PLATELET VOLUME 10.1 fL (7.4-10.4); PLATELET COUNT 298 K/uL (130-400); RED BLOOD COUNT 4.42 M/uL (4.2-5.4); WHITE BLOOD COUNT 7.04 K/uL (4.8-10.8)
[2017-07-07 15:08] LABS: BLOOD UREA NITROGEN 36 mg/dl (7-18); BUN/CREATININE RATIO 11.9 (10-20); CALCIUM 9.3 mg/dl (8.5-10.1); CARBON DIOXIDE 30 mmol/L (21-32); CHLORIDE 96 mmol/L (98-107); CREATININE 3.03 mg/dl (0.60-1.20); GLUCOSE 124 mg/dl (70-99); MAGNESIUM 2.2 mg/dl (1.8-2.4); PHOSPHORUS 3.1 mg/dl (2.5-4.9); POTASSIUM 3.6 mmol/L (3.5-5.1); SODIUM 134 mmol/L (136-145)
== END | disposition home or self-care (01) ==
LOC: C.LAB1850 13:32
PROVIDERS: ATTEND Internal Medicine Nephrology
DX: D64.9 Anemia, unspecified (principal); I12.9 Hypertensive chronic kidney disease with stage 1 through stage 4 chronic kidney disease, or unspecified chronic kidney disease; N18.3 Chronic kidney disease, stage 3 (moderate); E87.1 Hypo-osmolality and hyponatremia; E55.9 Vitamin D deficiency, unspecified

== ENCOUNTER 2017-07-08 15:31 | Emergency (ER) | payer OTHER ==
[~2017-07-08] VITALS: Ht 167.6 cm; Wt 84.0 kg
[~2017-07-08 15:31] MED LIST changes: -MULT-910 PO; -NTRGSL/4 UT; -SODI650T8 PO; -TRAM-10 PO
[2017-07-08 15:33] VITALS: TEMP 36.3; Ht 167.6 cm; Wt 84.0 kg
[2017-07-08] MEDS ORDERED: TRAMADOL HCL 50 MG TAB PO STA (16:03)
--- NOTE | 2017-07-08 16:30 | DIAGNOSTIC IMAGING REPORT ---
R HAND MIN 3 VIEWS ROUTINE CLINICAL HISTORY: R wrist/hand pain s/p fall trauma. Pain. COMPARISON: None. DISCUSSION: No acute bony abnormalities identified. Prior avulsions of the middle and distal phalanx of the third finger. Mild deformity of the residual proximal phalanx. A potential small cortical avulsion ulnar styloid. Moderate degenerative changes throughout. Moderate generalized soft tissue edema. Potential slightly impacted fracture distal radius. IMPRESSION: 1. A slightly impacted fracture distal radius. 2. Small avulsion ulnar styloid. 3. Degenerative change combined with old posttraumatic change of the right hand. The above report was generated using voice recognition software. It may contain grammatical, syntax or spelling errors. Electronically signed by: Jamison Valencia M.D. 07/08/2017 4:29 PM Dictated Date/Time: 07/08/2017 4:27 PM
--- NOTE | 2017-07-08 16:31 | DIAGNOSTIC IMAGING REPORT ---
R WRIST MIN 3 VIEWS ROUTINE CLINICAL HISTORY: RIGHT WRIST PAIN S/P FALL trauma. Pain. COMPARISON: None. DISCUSSION: Slightly impacted fracture distal radius. Small cortical avulsion ulnar styloid. Degenerative changes of the osseous structures of the wrist. Moderate generalized soft tissue edema. There is no evidence for soft tissue swelling. IMPRESSION: 1. Slightly impacted fracture distal radius. 2. Small avulsion ulnar styloid. 3. Degenerative superimposed change. The above report was generated using voice recognition software. It may contain grammatical, syntax or spelling errors. Electronically signed by: Jamison Valencia M.D. 07/08/2017 4:30 PM Dictated Date/Time: 07/08/2017 4:29 PM
[2017-07-08] MEDS ORDERED: TRAM-10 PO (16:53)
[2017-07-08] MEDS ORDERED: SODI650T8 PO (17:08)
[2017-07-08] MEDS ORDERED: MULT-910 PO (17:08)
[2017-07-08] MEDS ORDERED: NTRGSL/4 UT (17:08)
[2017-07-08 17:45] VITALS: BP 136/80; PULSE 63; O2SAT 96
--- NOTE | 2017-07-08 18:25 | EMERGENCY ROOM VISIT NOTE ---
History First contact with patient: 15:40 Chief Complaint: HAND PAIN/INJURY Stated Complaint: RIGHT HAND POSSIBLY BROKEN History of Present Illness The patient is a 71 year old female who presents to the Emergency Room with complaints of right hand and wrist pain after she fell last night in her bedroom. The patient reports that she turned away from her dresser, lost her balance and fell onto the floor. She denies any other injuries, including head injury, neck pain, back pain or other extremity injuries. The patient reports immediate swelling and bruising of the right upper extremity. She is currently taking Coumadin for history of atherosclerotic heart disease. She had her INR checked yesterday and was normal. The patient rates her discomfort a 10 out of 10. She took Tylenol without any relief of her pain. The patient is right-hand -dominant. She denies any pain extending into the elbow or shoulder region. She also denies any paresthesias or numbness of the right hand or fingers. Review of Systems 10 system review was performed and was negative except for pertinent positives and negatives as indicated in history of present illness Past Medical/Surgical History Medical Problems: (1) AMI (acute myocardial infarction) (2) Chronic kidney disease (3) COPD (chronic obstructive pulmonary disease) (4) Diabetes (5) PNA (pneumonia) Family History Diabetes mellitus FH: gallbladder disease FH: heart disease FH: lung disease FHx: cancer Hypertension Social History Smoking Status: Former Smoker Alcohol Use: none Drug Use: none Marital Status: Housing Status: lives with significant other Occupation Status: retired Current/Historical Medications Scheduled Amiodarone HCl (Amiodarone HCl), 200 MG PO DAILY Atorvastatin (Lipitor), 40 MG PO DAILY Clopidogrel Bisulfate (Plavix), 1 TAB PO DAILY Furosemide (Lasix), 3 TAB PO BID Gabapentin (Neurontin), 300 MG PO BID Insulin Aspart (Novolog Penfill), 10 UNITS SC SUPPER Insulin Glargine (Lantus Solostar), 15 UNITS SC QAM Insulin Glargine (Lantus Solostar), 20 UNITS SC QPM Metoprolol Tartrate (Lopressor) (Lopressor), 1 TAB PO BID Mometasone Furoate-Formoterol (Dulera 100/5 Mcg), 2 PUFFS INH BID Multiple Vitamins W/ Iron (Daily Vitamin Formula+Ir), 1 TAB PO DAILY Nitroglycerin (Nitrostat), 0.4 MG UT PRN Omeprazole (Prilosec), 20 MG PO BID Potassium Ext Rel (Klor-Con), 10 MEQ PO DAILY Sodium Bicarbonate (Sodium Bicarbonate), 1 TAB PO BID Warfarin Sod (Jantoven), 5 MG PO DAILY Scheduled PRN Acetaminophen (Tylenol), 500 MG PO DAILY PRN for Pain Alprazolam (Xanax), 0.25 MG PO HS PRN for Anxiety/Agitation Tramadol (Ultram), 1-2 TAB PO Q4H PRN for Pain Physical Exam Vital Signs Date Time Temp Pulse Resp B/P (MAP) Pulse Ox O2 Delivery O2 Flow Rate FiO2 07/08/17 15:33 36.3 81 22 155/75 93 Room Air Physical Exam CONSTITUTIONAL: Healthy and well nourished. Alert and oriented X 3 with positive affect. She appears in mild to moderate discomfort from pain. HEENT: Normocephalic, atraumatic. Pupils equal, round and reactive. NECK: Full active range of motion without discomfort. RESPIRATORY: Clear to auscultation bilaterally with no wheezing, crackles, rhonchi or stridor. CARDIOVASCULAR: Regular rate and rhythm with no murmurs, rubs or gallops. GASTROINTESTINAL: Bowel sounds present in all quadrants. MUSCULOSKELETAL: Examination shows notable edema and ecchymosis of the distal forearm, wrist and hand region. She is tender through the entire wrist and hand region. The patient has a prior amputation of the third finger. Capillary refill of remaining fingers is less than 2 seconds. INTEGUMENTARY: No rash or other significant dermatologic conditions noted. NEUROLOGIC: Right hand and fingers are sensory intact. Medical Decision & Procedures ER Provider Diagnostic Interpretation: My interpretation of right wrist and hand x-rays confirms an impacted distal radius fracture with an ulnar styloid fracture. Radiologist report is as follows: R WRIST MIN 3 VIEWS ROUTINE CLINICAL HISTORY: RIGHT WRIST PAIN S/P FALL trauma. Pain. COMPARISON: None. DISCUSSION: Slightly impacted fracture distal radius. Small cortical avulsion ulnar styloid. Degenerative changes of the osseous structures of the wrist. Moderate generalized soft tissue edema. There is no evidence for soft tissue swelling. IMPRESSION: 1. Slightly impacted fracture distal radius. 2. Small avulsion ulnar styloid. 3. Degenerative superimposed change. Medications Administered Medications (Trade) Dose Ordered Sig/Dajuan Route Start Time Stop Time Status Last Admin Dose Admin Tramadol HCl (Ultram Tab) 50 mg ONE STAT PO 07/08/17 16:03 07/08/17 16:04 DC 07/08/17 16:32 50 MG ED Course Patient history and physical exam were performed. Nurse's notes were reviewed. Vital signs were reviewed and were normal. Review of the patient's prior medication history shows that she has taken Ultram in the past for pain. She was administered Ultram 50 mg for pain. Denies pack was also applied. X-rays of the right wrist and hand confirms an impacted fracture of the distal radius, and ulnar styloid fracture. A volar Ortho-Glass splint was applied. Neurovascular check after splint placement was normal. The patient was encouraged to intermittently apply ice and elevate the wrist for swelling and pain. She may take Tylenol for baseline pain relief. A prescription was provided for Ultram as needed for breakthrough pain. The patient has been treated at [facility] in the past, and was instructed to call their office to schedule a follow-up appointment within the next 2-3 days. The patient was happy with plan of care, voiced understanding of all discharge instructions, and rated her discomfort a 4 out of 10 at the time of discharge. The patient was also seen and examined by Dr. Mendiola, ED attending physician, who agrees with workup and plan of care. Medical Decision [place] Drug Monitoring Program Search Results: patient reviewed within database, no issues identified Medication Reconcilliation Current Medication List: was personally reviewed by mn Blood Pressure Screening Patient's blood pressure: Normal blood pressure Impression Primary Impression: Fracture of right distal radius Additional Impressions: Fracture of right ulnar styloid Fall in home Departure Information Prescriptions Tramadol (Ultram) 50 Mg Tab 1-2 TAB PO Q4H Y for Pain, #20 TAB For Initial Treatment Prov: Galo Ross PA 07/08/17 Referrals Sanchez Barroso M.D. (PCP) Patient Instructions [facility] Problem Qualifiers Primary Impression: Fracture of right distal radius Encounter type: initial encounter Fracture type: closed Fracture morphology : other fracture Qualified Codes: S52.591A - Other fractures of lower end of right radius, initial encounter for closed fracture Additional Impressions: Fracture of right ulnar styloid Encounter type: initial encounter Fracture type: closed Fracture alignment : displaced Qualified Codes: S52.611A - Displaced fracture of right ulna styloid process, initial encounter for closed fracture Fall in home Encounter type: initial encounter Qualified Codes: W19.XXXA - Unspecified fall, initial encounter; Y92.099 - Unspecified place in other non-institutional residence as the place of occurrence of the external cause
--- NOTE | 2017-07-09 00:17 | EMERGENCY ROOM VISIT NOTE ---
ED Visit Note First contact with patient: 15:40 I have personally evaluated this patient examined her and reviewed the pertinent labs and data. I have discussed the case with Josesito Ross, the physician speech correction assistant and agree with the plan. Please refer to the PA note. This patient comes in after having a mechanical fall last evening injured her right wrist. X-rays reveal a impacted distal radius fracture. There is no significant displacement. A splint was placed she did not hit her head. She is on Coumadin but has no other traumatic findings. She is neurologically and neurovascularly intact. She's been seen by [facility] before and we will have her follow up with [facility].
== END 2017-07-08 17:45 | disposition home or self-care (01) ==
LOC: C.EDB 15:32 → C.EDC 17:45
DX: S52.591A Other fractures of lower end of right radius, initial encounter for closed fracture (principal); S52.611A Displaced fracture of right ulna styloid process, initial encounter for closed fracture; W01.0XXA Fall on same level from slipping, tripping and stumbling without subsequent striking against object, initial encounter; Y92.019 Unspecified place in single-family (private) house as the place of occurrence of the external cause; E11.9 Type 2 diabetes mellitus without complications; N18.9 Chronic kidney disease, unspecified; I25.2 Old myocardial infarction; Z87.891 Personal history of nicotine dependence; Z79.4 Long term (current) use of insulin; Z79.01 Long term (current) use of anticoagulants; Z79.899 Other long term (current) drug therapy; Z83.3 Family history of diabetes mellitus; Z83.79 Family history of other diseases of the digestive system; Z82.49 Family history of ischemic heart disease and other diseases of the circulatory system; Z80.9 Family history of malignant neoplasm, unspecified

== ENCOUNTER 2017-07-09 07:29 | Inpatient (IN) | payer OTHER ==
[~2017-07-09] VITALS: Ht 167.6 cm; Wt 90.8 kg
[~2017-07-09 07:29] MED LIST changes: -ASPEC81 PO; -ESCI10TA17 PO; -FERR18TA PO; +MULT-910 PO; +NTRGSL/4 UT; -NTRGSL4 SL; +SODI650T8 PO; +TRAM-10 PO
[2017-07-09] MEDS ORDERED: SODIUM CHLORIDE 0.9% 1000ML 1,000 ML IV STA (07:49)
--- NOTE | 2017-07-09 07:51 | EMERGENCY ROOM VISIT NOTE ---
History Report prepared by Brandon: Barbara Romeo Under the Supervision of: Dr. Benita Paul M.D. First contact with patient: 07:31 Chief Complaint: FALL Stated Complaint: FALL/SHOULDER PAIN History of Present Illness The patient is a 71 year old female who presents to the Emergency Room with complaints of a sudden fall that occurred six and a half hours ago. She currently rates her discomfort as a 3/10 in severity. The patient reports that two nights ago she had a fall, noting that she was evaluated in the emergency department yesterday. She states that she broke her right wrist at that time. The patient states that this morning she lost her balance around 0115 and fell again. She states that she has been experiencing left shoulder pain, rib pain, and back pain. The patient reports that she did hit her head early this morning during the fall. The patient states that she was able to wake her around 0600 after lying on the floor last night. She states that her called their grandson to come help her off the floor. Source of History: patient Onset: six and a half hours ago Position: other (global) Symptom Intensity: 3/10 Quality: other (fall) Timing: other (sudden) Associated Symptoms: + back pain Note: Associated Symptoms: left shoulder pain, rib pain Review of Systems See HPI for pertinent positives & negatives. A total of 10 systems reviewed and were otherwise negative. Past Medical & Surgical Medical Problems: (1) 3 ribs fx from fell, 2 recent fells in 2 days, shoulder pain (2) AMI (acute myocardial infarction) (3) Chronic kidney disease (4) COPD (chronic obstructive pulmonary disease) (5) Diabetes (6) PNA (pneumonia) Family History Diabetes mellitus FH: gallbladder disease FH: heart disease FH: lung disease FHx: cancer Hypertension Social History Smoking Status: Former Smoker Alcohol Use: none Drug Use: none Marital Status: Housing Status: lives with significant other Occupation Status: retired Current/Historical Medications Scheduled Amiodarone HCl (Amiodarone HCl), 200 MG PO DAILY Atorvastatin (Lipitor), 40 MG PO DAILY Clopidogrel Bisulfate (Plavix), 1 TAB PO DAILY Furosemide (Lasix), 3 TAB PO BID Gabapentin (Neurontin), 300 MG PO BID Insulin Aspart (Novolog Penfill), 10 UNITS SC SUPPER Insulin Glargine (Lantus Solostar), 15 UNITS SC QAM Insulin Glargine (Lantus Solostar), 20 UNITS SC QPM Metoprolol Tartrate (Lopressor) (Lopressor), 1 TAB PO BID Mometasone Furoate-Formoterol (Dulera 100/5 Mcg), 2 PUFFS INH BID Multiple Vitamins W/ Iron (Daily Vitamin Formula+Ir), 1 TAB PO DAILY Nitroglycerin (Nitrostat), 0.4 MG UT PRN Omeprazole (Prilosec), 20 MG PO BID Potassium Ext Rel (Klor-Con), 10 MEQ PO DAILY Sodium Bicarbonate (Sodium Bicarbonate), 1 TAB PO BID Warfarin Sod (Jantoven), 5 MG PO DAILY Scheduled PRN Acetaminophen (Tylenol), 500 MG PO DAILY PRN for Pain Alprazolam (Xanax), 0.25 MG PO HS PRN for Anxiety/Agitation Tramadol (Ultram), 1-2 TAB PO Q4H PRN for Pain Allergies Coded Allergies: No Known Allergies (Verified , 07/09/17) Physical Exam Vital Signs Date Time Temp Pulse Resp B/P (MAP) Pulse Ox O2 Delivery O2 Flow Rate FiO2 07/09/17 11:01 71 07/09/17 10:39 95 Room Air 07/09/17 09:41 72 18 153/86 95 Room Air 07/09/17 07:56 81 07/09/17 07:41 36.9 77 18 162/75 93 Room Air Physical Exam Vital signs reviewed. General: Elderly-appearing female, in no significant distress. HEENT: No scleral icterus, PERRLA, neck supple. Atraumatic. Cardiovascular: Regular rate and rhythm, no extra sounds. Pulmonary: Clear to auscultation bilaterally, normal work of breathing. Abdomen: Soft, tender to left lower quadrant, nondistended, positive bowel sounds. Musculoskeletal: Tender to left posterior ribs and left proximal humerus. No specific tenderness in the spine. Splint to wrist distal wrist. Neurologic: Patient awake alert and oriented x 3, generally weak, equal strength in all 4 extremities. Cranial nerves 2 through 12 grossly intact. Skin: Warm, dry, no rash Medical Decision & Procedures ER Provider Diagnostic Interpretation: CT results as stated below per my review and radiologist interpretation: CT HEAD WITHOUT CONTRAST (CT) CLINICAL HISTORY: Head pain status post trauma COMPARISON STUDY: 01/05/2008 TECHNIQUE: Axial CT of the brain is performed from the vertex to the skull base. IV contrast was not administered for this examination. A dose lowering technique was utilized adhering to the principles of ALARA. CT DOSE: 2816.74 mGy.cm FINDINGS: No intra or extra-axial mass lesions are visualized. There is no CT evidence of acute cortical infarction. There is no evidence of midline shift. There is no acute hemorrhage. No calvarial fractures are visualized. There are progressive patchy white matter hypodensities likely on a small vessel basis. There are scattered old lacunar infarcts. There is no evidence of pathologic ventricular dilatation. There is no evidence of acute sinusitis IMPRESSION: 1. No evidence of acute intracranial injury 2. Significant progression the patient's white matter disease, likely on a small vessel ischemic basis Electronically signed by: Elieser Cha M.D. 07/09/2017 9:31 AM Dictated Date/Time: 07/09/2017 9:[address] OF THE CERVICAL SPINE CLINICAL HISTORY: Neck pain status post trauma COMPARISON STUDY: December 2005 CT DOSE: TECHNIQUE: CT scan of the cervical spine was performed from the skull base to the thoracic inlet. Images are reviewed in the axial, sagittal, and coronal planes. IV contrast was not administered for this examination. A dose lowering technique was utilized adhering to the principles of ALARA. FINDINGS: The visualized portions of the lung apices reveal no evidence of pneumothorax. The prevertebral soft tissues are normal. No fractures or subluxations are visualized. There are multilevel degenerative changes IMPRESSION: No evidence of acute fracture or traumatic subluxation. Electronically signed by: Elieser Cha M.D. 07/09/2017 9:32 AM Dictated Date/Time: 07/09/2017 9:28 AM (CHEST) THORAX WITHOUT CLINICAL HISTORY: 71 years-old Female with trauma, renal failure. Acute fall with chest pain TECHNIQUE: Multiaxial CT images of the chest were performed without contrast. A dose lowering technique was utilized adhering to the principles of ALARA. COMPARISON: CT abdomen and pelvis of same day, chest CT 11/17/2016. FINDINGS: No dominant thyroid nodule identified. No pathologic adenopathy of the chest seen. Mild multichamber cardiac enlargement with coronary arterial disease. Subendocardial fat of the left ventricular apex compatible with remote myocardial infarction. Moderate atherosclerosis of the aorta without aneurysm. Main pulmonary artery is mildly dilated, 3.2 cm which may reflect underlying pulmonary arterial hypertension. Small left pleural effusion. No pneumothorax. Evaluation of the lung parenchyma is mildly limited secondary to respiratory motion. Mild centrilobular emphysema. Linear subsegmental opacities of the inferior segment lingula suggest atelectasis/scarring. Subsegmental consolidative opacities of the basal left lower lobe are noted. There is minimal dependent subsegmental atelectasis. Calcified granuloma involves the apical posterior segment left upper lobe. Mild bilateral subpleural reticulation suggest areas of chronic scarring. Central airways are patent. Mild bibasilar bronchial wall thickening may reflect bronchitis. Moderate nonspecific bilateral perinephric stranding. No acute abnormality of the imaged upper abdomen identified. The bones are mildly demineralized. Acute fractures are seen involving the posterior aspects of the left eighth, ninth and 10th ribs with the eighth and ninth ribs mildly displaced proximally 6 mm. Additionally, there is an acute nondisplaced fracture involving the left transverse process at T10 as seen on image 217 series 8. No acute right-sided rib fracture identified. Sternum appears intact. 20% anterior endplate compression deformity of the T9 vertebral body without retropulsion is unchanged from comparison compatible with chronic compression fracture. No acute compression deformity identified. IMPRESSION: 1. Acute displaced fractures involve the posterior portions of the left eighth and ninth ribs with acute nondisplaced fracture of the posterior left 10th rib. Additionally, there is an acute nondisplaced fracture involving the left transverse process of T10. No pneumothorax. 2. Small left-sided hemothorax with subsegmental left basilar consolidation suggesting pulmonary contusion. 3. Emphysema. 4. Cardiomegaly with subendocardial fat of the left ventricular apex compatible with remote myocardial infarction. Electronically signed by: Parker Velásquez M.D. 07/09/2017 9:40 AM Dictated Date/Time: 07/09/2017 9:[address] SCAN OF THE ABDOMEN AND PELVIS WITHOUT CONTRAST CLINICAL HISTORY: Left lower quadrant abdominal pain. Trauma. COMPARISON STUDY: 06/20/2015 TECHNIQUE: CT scan of the abdomen and pelvis was performed from the lung bases to the proximal femurs. Images are reviewed in the axial, sagittal, and coronal planes. IV contrast was not administered for this examination. A dose lowering technique was utilized adhering to the principles of ALARA. CT DOSE: FINDINGS: Lower chest: There is a small left pleural effusion with associated left basilar airspace opacities. The effusion is hyperdense and likely represents a small hemothorax. There are fractures of the left 10th 9 and eighth ribs. Liver: The unenhanced liver is normal in size, contour, and attenuation. There is no intrahepatic biliary ductal dilatation. Gallbladder: Unremarkable. Spleen: Normal in size and attenuation. Pancreas: Unremarkable. Adrenal glands: Unremarkable. Kidneys: No renal, ureteral, or bladder calculi are visualized. There is mild left-sided perinephric stranding. This is present the prior 2014 study. Bowel: There are no transition zones indicate bowel obstruction. There is no interloop fluid. There are no extraluminal gas collections. There is colonic diverticulosis Peritoneum: There is no intraperitoneal free air or abdominal ascites. There are bilateral fat-containing groin hernias Vasculature: The abdominal aorta is normal in course and caliber. Adenopathy: None. Pelvic viscera: The bladder, and pelvic viscera are unremarkable. Skeletal structures: There are fractures of the left eighth through 10th ribs. IMPRESSION: 1. No evidence of solid organ injury, given the limitations of a noncontrast study 2. Fractures of the left eighth, ninth, and 10th ribs 3. Small left hemothorax with associated left basilar airspace opacities Electronically signed by: Elieser Cha M.D. 07/09/2017 9:39 AM Dictated Date/Time: 07/09/2017 9:33 AM Laboratory Results Test 07/09/17 08:04 07/09/17 08:11 07/09/17 08:12 07/09/17 08:25 Activated Partial Thromboplast Time 39.8 SECONDS (21.0-31.0) Partial Thromboplastin Ratio 1.5 Estimated Average Glucose 229 mg/dl Hemoglobin A1c 9.6 % (4.5-5.6) Total Bilirubin 1.0 mg/dl (0.2-1) Direct Bilirubin 0.4 mg/dl (0-0.2) Aspartate Amino Transf (AST/SGOT) 22 U/L (15-37) Alanine Aminotransferase (ALT/SGPT) 23 U/L (12-78) Alkaline Phosphatase 142 U/L (45-117) Total Creatine Kinase 217 U/L (26-192) Creatine Kinase MB 3.4 ng/ml (0.5-3.6) Creatine Kinase MB Ratio 1.6 (0-3.0) Total Protein 7.4 gm/dl (6.4-8.2) Albumin 3.3 gm/dl (3.4-5.0) Bedside Troponin I < 0.030 ng/ml (0-0.045) Bedside Hemoglobin 12.2 g/dl (12.0-16.0) Bedside Hematocrit 36 % (37-47) Bedside Sodium 130 mEq/L (135-144) Bedside Potassium 3.5 mEq/L (3.3-5.0) Bedside Chloride 93 mEq/L (101-112) Bedside Total CO2 26 mEq/l (24-31) Bedside Blood Urea Nitrogen 27 mg/dl (7-18) Bedside Creatinine 2.7 mg/dl (0.6-1.3) Bedside Glucose (other) 204 mg/dl (70-99) Bedside Ionized Calcium (Elke) 1.15 mmol/l (1.12-1.32) Urine Color YELLOW Urine Appearance CLEAR (CLEAR) Urine pH 6.5 (4.5-7.5) Urine Specific [place] 1.011 (1.000-1.030) Urine Protein 2+ (NEG) Urine Glucose (UA) 1+ (NEG) Urine Ketones NEG (NEG) Urine Occult Blood TRACE (NEG) Urine Nitrite NEG (NEG) Urine Bilirubin NEG (NEG) Urine Urobilinogen NEG (NEG) Urine Leukocyte Esterase NEG (NEG) Urine WBC (Auto) 0 /hpf (0-5) Urine RBC (Auto) 0-4 /hpf (0-4) Urine Hyaline Casts (Auto) 0 /lpf (0-5) Urine Epithelial Cells (Auto) 5-10 /lpf (0-5) Urine Bacteria (Auto) NEG (NEG) Laboratory results per my review. Medications Administered Medications (Trade) Dose Ordered Sig/Dajuan Route Start Time Stop Time Status Last Admin Dose Admin Sodium Chloride 1,000 ml @ 125 mls/hr Q8H STAT IV 07/09/17 07:49 07/09/17 15:48 DC 07/09/17 10:15 125 MLS/HR Fentanyl Citrate (Fentanyl Inj) 25 mcg NOW STAT IV 07/09/17 10:00 07/09/17 10:01 DC 07/09/17 10:16 25 MCG Fentanyl Citrate (Fentanyl Inj) 50 mcg NOW STAT IV 07/09/17 11:01 07/09/17 11:02 DC 07/09/17 11:06 50 MCG Ondansetron HCl (Zofran Inj) 4 mg Q6H PRN IV 07/09/17 11:00 08/08/17 10:59 07/11/17 08:01 4 MG Morphine Sulfate (MoRPHine SULFATE INJ) 4 mg Q6H PRN IV 07/09/17 11:00 07/23/17 10:59 07/11/17 03:35 4 MG Oxycodone/ Acetaminophen (Percocet 10-325MG Tab) 1 tab Q4H PRN PO 07/09/17 11:00 07/10/17 16:39 DC 07/10/17 05:24 1 TAB Insulin Aspart (novoLOG ASPART) SLIDING SCALE G... ACHS SC 07/09/17 11:00 08/08/17 10:59 07/10/17 22:21 3 UNITS ECG Indication: other (trauma) Rate (beats per minute): 78 Rhythm: atrial fibrillation Findings: other (inferior T wave flattening, previous inferior and anterior infarcts) ED Course 0741: Past medical records reviewed. The patient was evaluated in room B2. A complete history and physical examination was performed. 0749: Ordered Sodium Chloride 1000 ml @ 125 mls/hr IV. 0959: I discussed the patients case with Gerardo Bourgeois, Cardiothoracic Surgery PA -C. He said that they will see the patient, but the patient should be evaluated under the medicine service. 1000: Ordered Fentanyl Inj 25 mcg IV. 1007: I discussed the patients case with Dr. Johnson [facility] [place]. He is going to evaluate the patient for further treatment. 1009: I reevaluated the patient and she is resting comfortably. I discussed the exam findings with her and I discussed the treatment plan. She verbalized complete understanding and agreement. She will be evaluated for further treatment. 1101: Per nursing staff the patient is still experiencing 9/10 pain. Ordered Fentanyl Inj 50 mcg IV. Medical Decision DDx: Intracranial injury, cervical spine injury, intrathoracic injury, intra- abdominal injury, musculoskeletal injury. This pt was evaluated and appears to be stable. She was hydrated with NSS, given IV fentanyl x 2 for pain. IV access was obtained and lab work was drawn. Pt was hydrated with NSS. CT head neck, CAP, was performed as pt had fall on coumadin, tenderness to chest/back and LLQ. These studies are significant for L rib fx and hemothorax. Pt was found to have INR of 2.0, no change in H/H. She does have CKD and creatinine is at baseline. UA is negative. Case was d/w thoracic surgery, Gerardo Lomeli PA-C who has agreed to evaluate pt. He has recommended evaluation by the hospitalist service which was contacted. Ortho will also need to be consulted in house for previous wrist fracture. Pt was made aware of the plan and agrees. Medication Reconcilliation Current Medication List: was personally reviewed by me Blood Pressure Screening Patient's blood pressure: Elevated blood pressure Referred to the hospitalist. Consults Time Called: 956 Consulting Physician: Gerardo Bourgeois Cardiothoracic Surgery [facility] Returned Call: 09 I discussed the patients case with Gerardo Bourgeois Cardiothoracic Surgery [facility]. He said that they will see the patient, but the patient should be evaluated under the medicine service. Additional Consults: Time Called: 1001 Consulted Physician: TIKI Brandon Returned Call: 1007 Additional Comments: I discussed the patients case with TIKI Brandon. He is going to evaluate the patient for further treatment. Impression Primary Impression: Fracture of rib of left side Additional Impressions: Hemothorax Frequent falls Right wrist fracture Scribe Attestation The scribe's documentation has been prepared under my direction and personally reviewed by me in its entirety. I confirm that the note above accurately reflects all work, treatment, procedures, and medical decision making performed by me. Departure Information Dispostion Being Evaluated By Hospitalist Referrals Sanchez Barroso M.D. (PCP) Problem Qualifiers
[2017-07-09 08:28] LABS: BASO % 0.1 %; BASO ABS # 0.02 K/uL (0-0.2); COMPLETE YES; HEMATOCRIT 33.2 % (37-47); IG% 0.2 %; LYMPH ABS # 0.55 K/uL (1.2-3.4); MEAN CELL VOLUME 79.6 fL (80-100); MEAN CORPUSCULAR HEMOGLOBIN 24.9 pg (25-34); MEAN CORPUSCULAR HGB CONC 31.3 g/dl (32-36); MEAN PLATELET VOLUME 9.8 fL (7.4-10.4); NEUT % 89.7 %; PLATELET COUNT 289 K/uL (130-400); RED BLOOD COUNT 4.17 M/uL (4.2-5.4); WHITE BLOOD COUNT 13.83 K/uL (4.8-10.8)
[2017-07-09 08:36] LABS: ISTAT CREATININE 2.7 mg/dl (0.6-1.3); ISTAT HEMOGLOBIN 12.2 g/dl (12.0-16.0); ISTAT IONIZED CALCIUM 1.15 mmol/l (1.12-1.32)
[2017-07-09 08:37] LABS: PARTIAL THROMBOPLASTIN RATIO 1.5; PROTHROMBIN TIME (PATIENT) 21.2 SECONDS (9.0-12.0)
[2017-07-09 08:52] LABS: URINE APPEARANCE CLEAR (CLEAR); URINE BILIRUBIN NEG (NEG); URINE COLOR YELLOW; URINE NITRITE NEG (NEG); URINE PH 6.5 (4.5-7.5); URINE SPECIFIC GRAVITY 1.011 (1.000-1.030); UROBILINOGEN NEG (NEG); ZZUR CULT IF INDIC CLEAN CATCH NO
[2017-07-09 08:57] LABS: MANUAL MICROSCOPIC REQUIRED? NO; REVIEW REQ? NO
[2017-07-09 09:00] LABS: BUN/CREATININE RATIO 10.7 (10-20); CREATININE 2.7 mg/dl (0.60-1.20); POTASSIUM 3.4 mmol/L (3.5-5.1)
[2017-07-09 09:06] LABS: CKMB/CK RATIO 1.6 (0-3.0)
--- NOTE | 2017-07-09 09:32 | DIAGNOSTIC IMAGING REPORT ---
CT HEAD WITHOUT CONTRAST (CT) CLINICAL HISTORY: Head pain status post trauma COMPARISON STUDY: 01/05/2008 TECHNIQUE: Axial CT of the brain is performed from the vertex to the skull base. IV contrast was not administered for this examination. A dose lowering technique was utilized adhering to the principles of ALARA. CT DOSE: 2816.74 mGy.cm FINDINGS: No intra or extra-axial mass lesions are visualized. There is no CT evidence of acute cortical infarction. There is no evidence of midline shift. There is no acute hemorrhage. No calvarial fractures are visualized. There are progressive patchy white matter hypodensities likely on a small vessel basis. There are scattered old lacunar infarcts. There is no evidence of pathologic ventricular dilatation. There is no evidence of acute sinusitis IMPRESSION: 1. No evidence of acute intracranial injury 2. Significant progression the patient's white matter disease, likely on a small vessel ischemic basis Electronically signed by: Elieser Cha M.D. 07/09/2017 9:31 AM Dictated Date/Time: 07/09/2017 9:25 AM
--- NOTE | 2017-07-09 09:33 | DIAGNOSTIC IMAGING REPORT ---
CT OF THE CERVICAL SPINE CLINICAL HISTORY: Neck pain status post trauma COMPARISON STUDY: December 2005 CT DOSE: TECHNIQUE: CT scan of the cervical spine was performed from the skull base to the thoracic inlet. Images are reviewed in the axial, sagittal, and coronal planes. IV contrast was not administered for this examination. A dose lowering technique was utilized adhering to the principles of ALARA. FINDINGS: The visualized portions of the lung apices reveal no evidence of pneumothorax. The prevertebral soft tissues are normal. No fractures or subluxations are visualized. There are multilevel degenerative changes IMPRESSION: No evidence of acute fracture or traumatic subluxation. Electronically signed by: Elieser Cha M.D. 07/09/2017 9:32 AM Dictated Date/Time: 07/09/2017 9:28 AM
--- NOTE | 2017-07-09 09:40 | DIAGNOSTIC IMAGING REPORT ---
CT SCAN OF THE ABDOMEN AND PELVIS WITHOUT CONTRAST CLINICAL HISTORY: Left lower quadrant abdominal pain. Trauma. COMPARISON STUDY: 06/20/2015 TECHNIQUE: CT scan of the abdomen and pelvis was performed from the lung bases to the proximal femurs. Images are reviewed in the axial, sagittal, and coronal planes. IV contrast was not administered for this examination. A dose lowering technique was utilized adhering to the principles of ALARA. CT DOSE: FINDINGS: Lower chest: There is a small left pleural effusion with associated left basilar airspace opacities. The effusion is hyperdense and likely represents a small hemothorax. There are fractures of the left 10th 9 and eighth ribs. Liver: The unenhanced liver is normal in size, contour, and attenuation. There is no intrahepatic biliary ductal dilatation. Gallbladder: Unremarkable. Spleen: Normal in size and attenuation. Pancreas: Unremarkable. Adrenal glands: Unremarkable. Kidneys: No renal, ureteral, or bladder calculi are visualized. There is mild left-sided perinephric stranding. This is present the prior 2014 study. Bowel: There are no transition zones indicate bowel obstruction. There is no interloop fluid. There are no extraluminal gas collections. There is colonic diverticulosis Peritoneum: There is no intraperitoneal free air or abdominal ascites. There are bilateral fat-containing groin hernias Vasculature: The abdominal aorta is normal in course and caliber. Adenopathy: None. Pelvic viscera: The bladder, and pelvic viscera are unremarkable. Skeletal structures: There are fractures of the left eighth through 10th ribs. IMPRESSION: 1. No evidence of solid organ injury, given the limitations of a noncontrast study 2. Fractures of the left eighth, ninth, and 10th ribs 3. Small left hemothorax with associated left basilar airspace opacities Electronically signed by: Elieser Cha M.D. 07/09/2017 9:39 AM Dictated Date/Time: 07/09/2017 9:33 AM
--- NOTE | 2017-07-09 09:41 | DIAGNOSTIC IMAGING REPORT ---
(CHEST) THORAX WITHOUT CLINICAL HISTORY: 71 years-old Female with trauma, renal failure. Acute fall with chest pain TECHNIQUE: Multiaxial CT images of the chest were performed without contrast. A dose lowering technique was utilized adhering to the principles of ALARA. COMPARISON: CT abdomen and pelvis of same day, chest CT 11/17/2016. FINDINGS: No dominant thyroid nodule identified. No pathologic adenopathy of the chest seen. Mild multichamber cardiac enlargement with coronary arterial disease. Subendocardial fat of the left ventricular apex compatible with remote myocardial infarction. Moderate atherosclerosis of the aorta without aneurysm. Main pulmonary artery is mildly dilated, 3.2 cm which may reflect underlying pulmonary arterial hypertension. Small left pleural effusion. No pneumothorax. Evaluation of the lung parenchyma is mildly limited secondary to respiratory motion. Mild centrilobular emphysema. Linear subsegmental opacities of the inferior segment lingula suggest atelectasis/scarring. Subsegmental consolidative opacities of the basal left lower lobe are noted. There is minimal dependent subsegmental atelectasis. Calcified granuloma involves the apical posterior segment left upper lobe. Mild bilateral subpleural reticulation suggest areas of chronic scarring. Central airways are patent. Mild bibasilar bronchial wall thickening may reflect bronchitis. Moderate nonspecific bilateral perinephric stranding. No acute abnormality of the imaged upper abdomen identified. The bones are mildly demineralized. Acute fractures are seen involving the posterior aspects of the left eighth, ninth and 10th ribs with the eighth and ninth ribs mildly displaced proximally 6 mm. Additionally, there is an acute nondisplaced fracture involving the left transverse process at T10 as seen on image 217 series 8. No acute right-sided rib fracture identified. Sternum appears intact. 20% anterior endplate compression deformity of the T9 vertebral body without retropulsion is unchanged from comparison compatible with chronic compression fracture. No acute compression deformity identified. IMPRESSION: 1. Acute displaced fractures involve the posterior portions of the left eighth and ninth ribs with acute nondisplaced fracture of the posterior left 10th rib. Additionally, there is an acute nondisplaced fracture involving the left transverse process of T10. No pneumothorax. 2. Small left-sided hemothorax with subsegmental left basilar consolidation suggesting pulmonary contusion. 3. Emphysema. 4. Cardiomegaly with subendocardial fat of the left ventricular apex compatible with remote myocardial infarction. Electronically signed by: Parker Velásquez M.D. 07/09/2017 9:40 AM Dictated Date/Time: 07/09/2017 9:30 AM
[2017-07-09] MEDS ORDERED: FENTANYL CITRATE INJ 50 MCG/1 ML 2 ML VIAL IV STA ×2 (10:00→11:01)
[2017-07-09 10:39] VITALS: O2SAT 95; BMI 28.9
[2017-07-09] MEDS ORDERED: OXYCODONE/ACETAMINOPHEN 5-325 TAB PO PRN (11:00)
[2017-07-09] MEDS ORDERED: ACETAMINOPHEN 325 MG TAB PO PRN (11:00)
[2017-07-09] MEDS ORDERED: MAGNESIUM HYDROXIDE SUSP 30 ML UDC PO PRN (11:00)
[2017-07-09] MEDS ORDERED: NITROGLYCERIN 0.4 MG SL PER TAB CHARGE UT PRN (11:00)
[2017-07-09] MEDS ORDERED: ALUMINUM/MAGNESIUM/SIMETH (MAALOX MAX) 30 ML UDC PO PRN (11:00)
[2017-07-09] MEDS ORDERED: ZOLPIDEM TARTRATE 5 MG TAB PO PRN (11:00)
[2017-07-09] MEDS ORDERED: POLYETHYLENE (MIRALAX) 17 GM PACK PO PRN (11:00)
--- NOTE | 2017-07-09 11:33 | History and Physical ---
History & Physical Date of Service Jul 09, 2017. History & Physical 3 ribs fx from fell, 2 recent fells in 2 days, shoulder pain I called , has no answer, [id number]
--- NOTE | 2017-07-09 11:51 | Medical Consult ---
Consultation Note Date of Service Jul 09, 2017. Consultation Note Consult Dictated #[id number]
[2017-07-09] MEDS ORDERED: GLUCOSE 10 TABS/TUBE PO PRN (12:00)
[2017-07-09] MEDS ORDERED: GLUCOSE 40% GEL 15 GM TUBE PO PRN (12:00)
[2017-07-09] MEDS ORDERED: GLUCAGON FOR INJ 1 MG VIAL SQ PRN (12:00)
--- NOTE | 2017-07-09 12:26 | HISTORY & PHYSICAL EXAMINATION ---
DATE OF ADMISSION: 07/09/2017 This is a level 3 inpatient admission, 35 minutes. CHIEF COMPLAINT: left ribs fracture and right wrist fracture in 2 falls in 2 days. HISTORY OF PRESENT ILLNESS: The patient is a 71-year-old white female with a significant past medical history of acute IN, CHF, COPD, hypoxic respiratory failure, healthcare associated pneumonia, chronic kidney disease, hyponatremia, peptic ulcerative disease, type 2 diabetic, diabetic neuropathy, history of tobacco abuse disorder, atrial fibrillations on Coumadin, anxiety, coming to the hospital Emergency Department because of the above chief complaint. The patient was seen in this Emergency Room the day before because of fall. She fell at home, loss of her balance on the floor and was seen in the Emergency Room. She was found to have right distal radial fracture which was closed fracture. There was a fracture of right ulnar styloid as well. The patient was ACEed and then sent home with pain medication and arrangement for [facility] surgeon to be seen today. However, patient come in the Emergency Room this morning again from second severe fall. The patient reported she fell at 1 p.m. on the left side. She stayed on the floor until 6:00 this a.m. She was having significant pain and was found to have left rib fracture which is 8, 9 and 10 associated with severe pain and the pain getting worse when cough. She also reported has left shoulder pain as well. In the Emergency Room, head CT, cervical spine, abdominal and chest CT was done. I was requested to see the patient for the admission. When I interviewed with the patient, she reported the pain is 8/10. The pain in the left chest wall is getting worse when have deep breathing or cough. Denied dizziness before fell, however she did report left shoulder significant pain from the fall as well. Nobody checked x-ray yet of the left shoulder. Denied headache, dizziness, blurry visions. Denied nausea, vomiting, abdominal pain, diarrhea, or constipation. Denied dysuria, urgency and frequencies. Denied cough or hemoptysis. Denied palpitation or lower extremity swelling. PAST MEDICAL HISTORY: 1. History of IN with 2 stents, history of AFib was cardioverted in last March. Currently, patient is Afib with rate control again. 2. History of chronic obstructive pulmonary disease. 3. Type 2 diabetic. 4. History of pneumonia. 5. Possible gastroesophageal reflux disease. ALLERGIES: No known drug allergy. FAMILY HISTORY: Include gallbladder disease, heart disease, lung disease and cancer, hypertension. SOCIAL HISTORY: The patient was smoking but quit in November. Denied alcohol abuse disorder. Denied illicit drug abuse. The patient lives with . MEDICATIONS: Taking at home which include Tylenol 500 mg p.o. daily p.r.n. for the pain, Xanax 0.25 mg p.o. at bedtime p.r.n. for anxiety and agitation, amiodarone 200 mg p.o. daily, atorvastatin 40 mg p.o. daily, Plavix 1 tab p.o. daily, Lasix 60 mg p.o. b.i.d., gabapentin 300 mg p.o. b.i.d., insulin aspart 10 unit before supper, glargine 15 units subQ a.m. and 20 units q.p.m., metoprolol 50 mg 1 tab p.o. b.i.d., Dulera 100/5 mcg 2 puff inhaled b.i.d., multiple vitamin 1 tab p.o. daily, Nitrostat 0.4 mg use as directed as needed for chest pain, omeprazole 20 mg p.o. b.i.d., potassium 10 mEq p.o. daily, sodium bicarb 1 tab p.o. b.i.d., tramadol 50 mg 1-2 tab p.o. q. 4 hours p.r.n. for the pain, Coumadin 5 mg p.o. daily. PHYSICAL EXAMINATION: VITAL SIGNS: Temperature is 36.9, pulse 77, respiration rate 18, blood pressure 162/75, pulse ox was 93% in room air. GENERAL: The patient is a white female, awake, alert and orientated, in no acute distress. HEAD: Normocephalic. EYES: Pupils equal, round responds to light. EARS: Ear was normal. NOSE: Normal. NECK: Supple. Thyroid no enlargement. Trachea midline. HEART: Irregular, irregular but heart rate at 70s. CHEST: Left chest wall has contusion, bluish, local obvious tender, local no deformities. LUNGS: Decreased breathing sounds. There was no wheezing, rhonchi and crackles. ABDOMEN: Soft, nontender. Bowel sound was positive. GENITOURINARY AND RECTAL: Deferred. There was tender in the posterior rib and left left proximal humerus. Left shoulder has tender and limited range of motion. NEUROLOGICAL EVALUATION: Cranial nerve II through XII was intact. Right wrist in cast. There was sporadic skin bluish all over the body. LABORATORY STUDIES: CBC 13, hemoglobin 10.4, platelet 289. Neutrophil is 89%. PT/INR was 21/2. Sodium 130, potassium 3.5, chloride 93, BUN 29, creatinine 2.7. Blood glucose 204. Total bili 1.0. Alkaline phosphate 142, total CK 217. Albumin 3.1. IMAGING STUDIES: Abdominal and pelvis CT studies, no evidence of solid organ injury. Chest CT studies acute displaced fractures involving the posterior portion of the left 8th and 9th with acute nondisplaced fracture and left 10th rib posterior area and has a left transverse process T10 has nondisplaced fracture. There was small left side hemothorax. There was emphysema. CERVICAL SPINE CT: No evidence of acute fracture or traumatic subluxation. Head CT studies, there was no acute disease. EKG was done in the ER which shows atrial fibrillation, heart rate 78 beats per minutes, there was no obvious ST-T wave changes. ASSESSMENT AND PLAN: A 71-year-old white female with the problems below: 1. Two falls in a row with significant fracture, there is acute displaced fracture in the left 8th and 9th ribs and nondisplaced fracture 10th ribs. 2. There is acute nondisplaced fracture involving the left transverse process of T10. 3. Small left side hemothorax. 4. Right wrist fracture. 5. Left shoulder significant pain and limited range of motion. 6. Atrial fibrillation on Coumadin. INR is 2.0. History of cardioversion, unsure if Afib is new or not after cardioversion. 7. Mild leukocytosis with white count 13.8 and left shift. 8. Chronic anemia. Hemoglobin today 10.4. 9. Chronic kidney disease stage III is stable is in the best of the baseline. 10. Diabetic type 2 with blood glucose 204. 11. Hyponatremia, sodium 130s. 12. Dyslipidemia. 13. History of chronic obstructive pulmonary disease. 14. History of tobacco abuse disorder. PLAN: The patient has 2 falls in 2 days with significant fractures in the ribs and right wrist and shoulder pain. She has significant comorbidity as well which include Afib on Coumadin and history of IN with 2 stents , last ELAINE was on 11/17/2016) on Plavix. She needs full admission. Will be in the tele. Even though she denied any dizziness or racing heart prior to the fall, however with history of Afib I will keep her in the tele. Will have pain control, PT, OT, incentive spirometer. For the right wrist fracture will have [facility] to see. The patient has an appointment with [facility] today from the fall on the day before, therefore I request to see the patient today. For the left ribs fracture 2 of them was displaced with small hemothorax. I will request chest surgeon to see patient today. I ordered left shoulder chest x-ray to further define any fractures going on in the left shoulder. For the problem of Afib, we will continue home medication include beta duke, amiodarone. I will hold Coumadin for now, however I will cautiously continue Plavix for now because history of ELAINE in 11/2016. The patient has mild leukocytosis with white count 13.8 and left shift. I will send a blood culture. Because there was no evidence of infection I will hold antibiotics. There was T10 transverse process fracture as well, may need spine CT to further evaluation if needed. The patient has hyponatremia, chronic kidney disease, diabetic type 2, will continue home medication, check hemoglobin A1c, insulin sliding scales as well. We will give Protonix for GI prophylaxis. DVT prophylaxis, currently INR is 2.0. I ordered PT, OT evaluation and bilingual social worker consult. The patient is okay CPR, but no intubation. I will call patient's to give him an update. SARA
[2017-07-09 12:35] VITALS: BP 180/85; PULSE 75; TEMP 36.7; O2SAT 92
[2017-07-09 12:54] LABS: ESTIMATED AVERAGE GLUCOSE 229 mg/dl; HA1C FLAG Normal (Normal)
[2017-07-09] MEDS: SODIUM CHLORIDE 0.9% 1000ML 1,000 ML IV SCH ×2 (13:04→23:33)
[2017-07-09] MEDS: OXYCODONE/ACETAMINOPHEN 10/325MG TAB PO PRN (13:05)
--- NOTE | 2017-07-09 13:06 | CONSULTATION REPORT ---
DATE OF CONSULTATION: 07/09/2017 REASON FOR CONSULTATION: Rib fractures. HISTORY OF PRESENT ILLNESS: This is a 71-year-old female who suffered an unprovoked fall for the second time in 2 days. I discussed with the patient and she said that she was ambulating in her bed, when she merely lost her balance and fell, when her left side struck in an end table. She denies any head injury or loss of consciousness. She denies any syncope or preceding chest pain or shortness of breath prior to fall and states that she merely lost her balance. She said that EMS was summoned by her family and she was brought into the Emergency Department. In the Emergency Department, a CBC revealed a white blood cell count of 13.8, hemoglobin and hematocrit 10.4 and 33.2, and platelet count was within the normal range. Her INR is 2.0. Urinalysis was negative for infection and chemistry profile showed sodium of 130, potassium 3.5, BUN and creatinine were 29 and 2.7. The patient had numerous imaging studies including a CT scan of the head that showed no acute intracranial injury. She has cervical spine CT scan that showed no fractures or subluxations. She had an abdominal and pelvic CT scan that showed no evidence of intraabdominal injury. The patient in addition had a CT scan of her chest. The CT scan of her chest showed an acute displaced fractures involving ribs 8 and 9 as well as 10 on the left side. There was also a fracture of the transverse process at T10. There was small left-sided pleural effusion suggestive of a hemothorax with some left basilar consolidation, suggestive of pulmonary contusion. No pneumothorax was noted. We have been asked to participate in her care while she is in the hospital as it was felt that she requires admission as this is her second fall in 2 days. It should be noted that the patient did fall yesterday, at which time she suffered an ulnar styloid fracture of her right wrist and her arm is currently in a splint because of this. I questioned the patient on numerous other symptoms and the patient has had falls as noted above, but she denies any head injuries, loss of consciousness, blurred or double vision. She denies any neck pain. She denies any tinnitus or vertigo. She denies any epistaxis. She says she does not have a sore throat. Again, she denies any neck pain. She denies any chest pain or palpitations and denies any syncopal episodes. She says that it is difficult to breathe due to pain from her associated rib fractures, but she denies any fever, shakes, chills or cough. No hemoptysis noted. She denies any abdominal pain, nausea, vomiting or recent melenic stools. She denies any dysuria. She denies any history of stroke or seizure. She denies migraine headaches. She notes no history of DVT or PE to the best of her knowledge. At the present time, she is resting comfortably in bed and her pain control seems to be adequate at this time and she is in no distress. PAST MEDICAL HISTORY: Includes, 1. Coronary artery disease. 2. Myocardial infarction in November 2016. 3. Peptic ulcer disease. 4. Chronic kidney disease. 5. COPD. 6. Diabetes with associated neuropathy. 7. Atrial fibrillation. 8. Peripheral vascular disease. PAST SURGICAL HISTORY: Includes cardiac catheterization with stent placement in November 2016. ALLERGIES: None. OUTPATIENT MEDICATION REGIMEN: Includes the followin. Tylenol as needed for pain. 2. Xanax 0.25 mg at bedtime as needed. 3. Amiodarone 200 mg daily. 4. Lipitor 40 mg daily. 5. Plavix 75 mg daily. 6. Lasix 20 mg twice daily. 7. Neurontin 300 mg twice daily. 8. NovoLog insulin 10 units with her evening meal. 9. Lantus 15 units in the morning and 20 units in the evening. 10. Lopressor 1 tablet twice daily. 11. Dulera inhaler twice daily. 12. Multivitamin daily. 13. Nitroglycerin as needed for chest pain. 14. Prilosec 20 mg twice daily. 15. Potassium chloride 10 mEq daily. 16. Sodium bicarbonate 650 mg twice daily. 17. Ultram as needed for pain. 18. Coumadin 5 mg daily. SOCIAL HISTORY: The patient does have an extensive history of smoking, but claims that she quit since her most recent heart attack. FAMILY HISTORY: Positive for diabetes and hypertension. REVIEW OF SYSTEMS: As noted above. PHYSICAL EXAMINATION: VITAL SIGNS: The patient is afebrile, temperature 36.9, pulse 71 and regular, respirations are 18 and unlabored, blood pressure 153/86, and pulse ox 95% on room air. GENERAL: The patient is alert and she is oriented x3. She is in no distress at this time. HEENT: Her head appears atraumatic and normocephalic. Her eyes, pupils equal, round and reactive to light and accommodation. Her extraocular motions are intact. Ears: Auditory acuity is grossly intact. There is no evidence of orozco sign. Nose: There is no evidence of nasal trauma. Mouth: Dry mucous membranes. NECK: The patient's neck is supple. There is no pain with palpation of her cervical spine. She is able to turn her head from side to side without significant pain. CARDIOVASCULAR: Revealed a regular rate and rhythm. LUNGS: Revealed decreased breath sounds at the base. I did not appreciate any wheezing or use of accessory muscles. The patient did have point tenderness with palpation on the left side of her chest wall. ABDOMEN: Soft, nontender, and nondistended. EXTREMITIES: Revealed no clubbing. The patient was noted to have her right wrist in a cast and her fingers did appear somewhat bruised, but she was able to move her fingers. NEUROLOGIC: Revealed cranial nerves II through XII are grossly intact. She was able to move all 4 extremities and follow simple commands. DIAGNOSTIC DATA: As noted above. IMPRESSION: A 71-year-old female status post fall with rib fractures and small pleural effusions suggestive of hemothorax and pulmonary contusion. PLAN: The patient has been admitted by the hospitalist service as it was felt she is unsafe to return home due to the fact that she takes anticoagulation and has now suffered 2 falls in 2 days. Concerning her above noted rib fractures, pleural effusion and pulmonary contusion, the patient will require adequate pain control. In the hospital, she has already implemented pain control measures as it is important for the patient to have aggressive incentive spirometry, which I have ordered and also it is important for the patient to have adequate pulmonary toilet as her associated rib fractures will predispose her to pneumonia. Fortunately, she does not have a pneumothorax at this time, but due to the nondisplaced nature of her rib fractures, this is a possibility. I have ordered a repeat chest x-ray for tomorrow morning to ensure that she does not have worsening pleural effusion, pulmonary contusion or pneumothorax. If any of these problems do develop, we will intervene as indicated at that time. We will continue to monitor the patient with you while she is in the hospital. I have also discussed with Dr. Johnson of the hospitalist service for anticoagulation and he is planning on holding her anticoagulation for today and will resume as her clinical course allows.
--- NOTE | 2017-07-09 13:21 | Orthopedic Progress Note ---
Orthopedic Progress Note Date of Service Jul 09, 2017. Subjective Additional Notes: 71 yo wf with h/o several falls over the last few days. Pt was in the ER yesterday with Right distal radius fx, splinted, and sent home to follow up with [facility]. Pt had another fall after getting home. Came back to ER and found to have 3 broken left ribs. Pt states she keeps losing her balance. Asked to see her for her distal radius fx. PMH - acute [place], CHF, COPD, hypoxic respiratory failure, healthcare associated pneumonia, chronic kidney disease, hyponatremia, peptic ulcerative disease, type 2 diabetic, diabetic neuropathy, history of tobacco abuse disorder, atrial fibrillations on Coumadin, anxiety, Objective splint noted on right wrist. splint removed and webril loosened. moving all fingers/thumb of the right hand. states the fingers feel a bit tingly/numb. Good cap refill currently. Swelling noted over the dorsum of the hand but not tense. Some ecchymosis noted over dorsum of hand and fingers. Tender on palpation over the wrist. Splint reapplied. Date Time Temp Pulse Resp B/P (MAP) Pulse Ox O2 Delivery O2 Flow Rate FiO2 07/09/17 12:28 36.9 71 18 153/86 95 07/09/17 11:01 71 07/09/17 10:39 95 Room Air 07/09/17 09:41 72 18 153/86 95 Room Air 07/09/17 07:56 81 07/09/17 07:41 36.9 77 18 162/75 93 Room Air Laboratory Results 24 Hours: Test 07/09/17 08:04 White Blood Count 13.83 K/uL Red Blood Count 4.17 M/uL Hemoglobin 10.4 g/dL Hematocrit 33.2 % Mean Corpuscular Volume 79.6 fL Mean Corpuscular Hemoglobin 24.9 pg Mean Corpuscular Hemoglobin Concent 31.3 g/dl Platelet Count 289 K/uL Mean Platelet Volume 9.8 fL Neutrophils (%) (Auto) 89.7 % Lymphocytes (%) (Auto) 4.0 % Monocytes (%) (Auto) 6.0 % Eosinophils (%) (Auto) 0.0 % Basophils (%) (Auto) 0.1 % Neutrophils # (Auto) 12.40 K/uL Lymphocytes # (Auto) 0.55 K/uL Monocytes # (Auto) 0.83 K/uL Eosinophils # (Auto) 0.00 K/uL Basophils # (Auto) 0.02 K/uL Prothromb Time International Ratio 2.0 Prothrombin Time 21.2 SECONDS Additional Notes: R WRIST MIN 3 VIEWS ROUTINE CLINICAL HISTORY: RIGHT WRIST PAIN S/P FALL trauma. Pain. COMPARISON: None. DISCUSSION: Slightly impacted fracture distal radius. Small cortical avulsion ulnar styloid. Degenerative changes of the osseous structures of the wrist. Moderate generalized soft tissue edema. There is no evidence for soft tissue swelling. IMPRESSION: 1. Slightly impacted fracture distal radius. 2. Small avulsion ulnar styloid. 3. Degenerative superimposed change. Assessment & Plan Assessment: Right distal radius fracture Plan: Elevation and ice to the right wrist for now. INR too high for any any surgery at this time Dr Orosco to see patient later today.
[2017-07-09] MEDS: INSULIN ASPART 100 UNITS/ML 3 ML PEN SC SCH ×3 (13:58→20:28)
[2017-07-09 13:59] VITALS: BP 129/62
[2017-07-09 15:40] VITALS: BP 136/91; PULSE 72; TEMP 36.8; O2SAT 95
--- NOTE | 2017-07-09 15:54 | DIAGNOSTIC IMAGING REPORT ---
L SHOULDER MIN 2 VIEWS ROUTINE HISTORY: 71 years-old Female left shoudler pain and LROM s/p fell acute left shoulder pain status post fall with decreased range of motion COMPARISON: Chest CT 07/09/2017 TECHNIQUE: 3 views of the left shoulder FINDINGS: Moderate acromioclavicular and mild glenohumeral osteoarthritis. No acute fracture or dislocation identified. No loose body. Multiple left-sided rib fractures redemonstrated with left basilar consolidation. IMPRESSION: 1. Degenerative changes of the left shoulder without acute fracture or dislocation. 2. Displaced left rib fractures redemonstrated with left basilar consolidation. The above report was generated using voice recognition software. It may contain grammatical, syntax or spelling errors. Electronically signed by: Parker Velásquez M.D. 07/09/2017 3:52 PM Dictated Date/Time: 07/09/2017 3:51 PM
--- NOTE | 2017-07-09 16:35 | DIAGNOSTIC IMAGING REPORT ---
SINGLE VIEW CHEST CLINICAL HISTORY: Pneumothorax. FINDINGS: An AP, portable, upright chest radiograph is compared to study dated 12/05/2016 and correlated with chest CT performed the same day 07/09/2017. The examination is degraded by portable technique and patient rotation. The heart is enlarged and there is atherosclerotic calcification of the thoracic aorta. The pulmonary vasculature is noncongested. There is a small left pleural effusion with associated left basilar consolidation. The right lung appears clear. No pneumothorax is seen. The skeletal structures are osteopenic. Left-sided rib fractures are noted. IMPRESSION: 1. Cardiomegaly without radiographic evidence of congestive failure. 2. There are left-sided rib fractures. These were better characterized on today's CT scan. 3. There is a small left pleural effusion with left basilar consolidation. This likely represents hemothorax as shown by CT. Electronically signed by: Piyush Fox M.D. 07/09/2017 4:34 PM Dictated Date/Time: 07/09/2017 4:32 PM
[2017-07-09] MEDS ORDERED: FUROSEMIDE 20 MG TAB PO SCH (17:00)
--- NOTE | 2017-07-09 19:27 | SURGICAL CONSULTATION ---
DATE OF CONSULTATION: 07/09/2017 Ms. Chappell is a 71-year-old female who has fallen twice in the last few days and suffered a fracture of her wrist, but also had some left rib fractures from a fall earlier today. She was seen in Emergency Room by Dr. Benita Paul and was admitted to the hospitalist service. She has fractured 2 ribs on the left at least and has some fluid. We were asked to evaluate her for possible intervention. I am a bit concerned because she is on Coumadin. I repeated a CT scan on her later in the day and it did not really show much increase in her pleural efusion. We will check another x-ray in the morning. Pain control is going to be an issue. I would hold her Coumadin as you are doing. For specifics of this surgical consultation, please refer to Mr. Bourgeois's comprehensive note done earlier. SARA
[2017-07-09 19:49] VITALS: BP 159/76; PULSE 76; TEMP 37.2; O2SAT 92
[2017-07-09] MEDS: GABAPENTIN 300 MG CAP PO SCH (20:19)
[2017-07-09] MEDS: METOPROLOL TARTRATE 50 MG TAB PO SCH (20:19)
[2017-07-09] MEDS: SODIUM BICARBONATE 650 MG TAB PO SCH (20:20)
[2017-07-09] MEDS: INSULIN GLARGINE SOLOSTAR 100 UNITS/ML 3 ML PEN SC SCH (20:25)
[2017-07-09] MEDS: MoRPHine SULFATE 4 MG/ML 1 ML CARP\\VIAL IV PRN (21:47)
--- NOTE | 2017-07-09 23:01 | ORTHOPEDIC CONSULTATION ---
DATE OF CONSULTATION: 07/09/2017 HISTORY OF PRESENT ILLNESS: This is a 71-year-old female, who sustained several falls over the past few days. She is admitted with broken ribs as well as a right distal radius fracture. She was recently seen in the Emergency Department, sent home and instructed to follow up as an outpatient. She returned to the ER with complaints of increasing pain in the broken ribs. She is currently admitted to the telemetry service, with special attention to right wrist fracture. Orthopedic hand surgery was consulted. PHYSICAL EXAMINATION: EXTREMITIES: Right wrist examination does show a well-fitting volar splint. She can flex and extend the digits. Bruising and ecchymosis are seen in the digits. The fingers are warm and well perfused. Some fracture blisters are seen in the dorsal aspect of the hand. Elbow shows supple range of motion. Three views of the right wrist do show a mildly displaced distal radius fracture. Small ulnar styloid avulsion is seen. Degenerative changes are seen in the wrist as well. The wrist does show acceptable alignment with no evidence of shortening of the distal radius. There is a, likely, nondisplaced intra-articular extension into the dorsal aspect of the radiocarpal joint. Dorsal comminution is seen. Dorsal tilt is to neutral. ASSESSMENT: A 71-year-old female with: 1. A right distal radius fracture, minimally displaced. 2. Small left-sided pneumothorax. 3. Rib fractures. 4. Chronic kidney disease. 5. Atrial fibrillation, on Coumadin. 6. Type 2 diabetes. 7. History of chronic obstructive pulmonary disease. PLAN: I discussed the treatment options with her. At this point in time, I feel this may heal without surgical treatment. Recommendation is for close office follow up in 1 week for repeat radiographs out of plaster. We will continue the current volar splint, as this is fitting well. We will likely transition her to a cast. I discussed the possibility this could shift or move, down the road, necessitating surgery. She is understanding of these issues. At this point, I recommend management of her acute inpatient medical issues. The patient will follow up with orthopedics upon discharge from the hospital, with me upon discharge. Orthopedics will sign off. If there are any further questions or concerns, please feel free to contact me.
[2017-07-09 23:15] VITALS: BP 105/51; PULSE 77; TEMP 36.9; O2SAT 91
[2017-07-10] VITALS (8 sets, daily range): BP systolic 109–173; BP diastolic 62–82; PULSE 70–97; TEMP 36.6–37.5; O2SAT 85–97; BMI 29.7
[2017-07-10] MEDS: MoRPHine SULFATE 4 MG/ML 1 ML CARP\\VIAL IV PRN ×3 (02:46→19:26)
[2017-07-10] MEDS: OXYCODONE/ACETAMINOPHEN 10/325MG TAB PO PRN (05:24)
[2017-07-10 06:22] LABS: BASO % 0.2 %; BASO ABS # 0.02 K/uL (0-0.2); COMPLETE YES; EOS % 0.9 %; HEMATOCRIT 31.4 % (37-47); IG% 0.3 %; MEAN CELL VOLUME 79.9 fL (80-100); MEAN CORPUSCULAR HEMOGLOBIN 24.7 pg (25-34); MEAN CORPUSCULAR HGB CONC 30.9 g/dl (32-36); MEAN PLATELET VOLUME 9.6 fL (7.4-10.4); MONO % 10.6 %; PLATELET COUNT 273 K/uL (130-400); RED BLOOD COUNT 3.93 M/uL (4.2-5.4); WHITE BLOOD COUNT 8.99 K/uL (4.8-10.8)
[2017-07-10 06:33] LABS: INR 1.6 (0.9-1.1); PROTHROMBIN TIME (PATIENT) 16.6 SECONDS (9.0-12.0)
[2017-07-10 06:53] LABS: BUN/CREATININE RATIO 10.6 (10-20); CALCIUM 8.5 mg/dl (8.5-10.1); CREATININE 2.97 mg/dl (0.60-1.20); MAGNESIUM 2.1 mg/dl (1.8-2.4); POTASSIUM 3.7 mmol/L (3.5-5.1)
[2017-07-10 06:54] LABS: PHOSPHORUS 3.5 mg/dl (2.5-4.9)
--- NOTE | 2017-07-10 06:58 | DIAGNOSTIC IMAGING REPORT ---
CHEST ONE VIEW PORTABLE CLINICAL HISTORY: rib fractures COMPARISON STUDY: 07/09/2017 FINDINGS: The heart remains enlarged. There is no overt failure. There are persistent patchy airspace opacities at the level the left cardiophrenic angle. No pneumothorax is visualized. There are multiple left-sided rib fractures.[ IMPRESSION: 1. Persistent airspace opacities in the lower left cardiophrenic angle 2. Left-sided rib fractures 3. No evidence of pneumothorax Electronically signed by: Elieser Cha M.D. 07/10/2017 6:57 AM Dictated Date/Time: 07/10/2017 6:56 AM
--- NOTE | 2017-07-10 08:29 | Hospitalist Progress Note ---
Hospitalist Progress Note Date of Service Jul 10, 2017. (Courtney Pacheco PA-C) Subjective Pt evaluation today including: conversation w/ patient, conversation w/ family , physical exam, chart review, lab review, review of studies Pain: 9/10 Left rib pain PO Intake: Fair Voiding: no voiding problems The patient was seen and examined this morning. Pt reports having quite a bit of pain in the left ribs, rating it a 9/10, constant pain. She is acutely nauseous when I visited her. She reports starting to feel nauseous beginning after taking percocet, which she did prior to breakfast. Denies shortness of breath, or orthopnea at this time, no fever, chills or sweats. Pt is unable to take deep breaths when asked due to the pain. Her R forearm is very bruised, and there is an outlined area of induration above the casting, she denies this is painful and doesn't seem to be getting larger. Overnight events on tele include a 10 beat run of vtach during vomiting, so likely was not true vtach. ROS: 6 point ROS reviewed and otherwise negative. (Courtney Pacheco PA-C) Objective Vital Signs Date Time Temp Pulse Resp B/P (MAP) Pulse Ox O2 Delivery O2 Flow Rate FiO2 07/10/17 07:39 37.5 85 20 110/62 (78) 96 Nasal Cannula 2.0 07/10/17 03:45 Room Air 07/10/17 03:45 36.9 97 15 109/65 (80) 85 Room Air 07/10/17 00:05 Room Air 07/09/17 23:15 36.9 77 20 105/51 (69) 91 Room Air 07/09/17 20:00 Room Air 07/09/17 19:49 37.2 76 20 159/76 (103) 92 Room Air 07/09/17 15:40 36.8 72 20 136/91 (106) 95 Room Air 07/09/17 13:59 129/62 (84) 07/09/17 12:35 Room Air 07/09/17 12:35 36.7 75 18 180/85 (116) 92 Room Air 07/09/17 12:28 36.9 71 18 153/86 95 07/09/17 11:01 71 07/09/17 10:39 95 Room Air 07/09/17 09:41 72 18 153/86 95 Room Air (Courtney Pacheco PA-C) Physical Exam General Appearance: WD/WN, + moderate distress Eyes: PERRL, EOMI ENT: hearing grossly normal, pharynx normal, + pertinent finding (MMM) Neck: supple, no JVD Respiratory/Chest: no respiratory distress, no accessory muscle use, + pertinent finding (On 2 L via NC, Good breath sounds throughout R field, Diminished breath sounds at left base, +pain with deep breathing) Cardiovascular: + irregularly irregular Abdomen: normal bowel sounds, non tender, soft Extremities: no pedal edema, no calf tenderness, + pertinent finding (R forearm casted, ecchymotic phalanges, + erythematous area of forearm above the cast which has been outlined, nonpainful to touch, +induration. ) Neurologic/Psychiatric: alert, normal mood/affect, oriented x 3 Skin: normal color, warm/dry (Courtney Pacheco PA-C) Laboratory Results Last 24 Hours Test 07/09/17 08:25 07/09/17 13:00 07/09/17 15:53 07/09/17 20:02 Urine Color YELLOW Urine Appearance CLEAR Urine pH 6.5 Urine Specific [place] 1.011 Urine Protein 2+ Urine Glucose (UA) 1+ Urine Ketones NEG Urine Occult Blood TRACE Urine Nitrite NEG Urine Bilirubin NEG Urine Urobilinogen NEG Urine Leukocyte Esterase NEG Urine WBC (Auto) 0 /hpf Urine RBC (Auto) 0-4 /hpf Urine Hyaline Casts (Auto) 0 /lpf Urine Epithelial Cells (Auto) 5-10 /lpf Urine Bacteria (Auto) NEG Bedside Glucose 178 mg/dl 161 mg/dl 261 mg/dl Test 07/10/17 06:01 07/10/17 06:58 White Blood Count 8.99 K/uL Red Blood Count 3.93 M/uL Hemoglobin 9.7 g/dL Hematocrit 31.4 % Mean Corpuscular Volume 79.9 fL Mean Corpuscular Hemoglobin 24.7 pg Mean Corpuscular Hemoglobin Concent 30.9 g/dl Platelet Count 273 K/uL Mean Platelet Volume 9.6 fL Neutrophils (%) (Auto) 78.0 % Lymphocytes (%) (Auto) 10.0 % Monocytes (%) (Auto) 10.6 % Eosinophils (%) (Auto) 0.9 % Basophils (%) (Auto) 0.2 % Neutrophils # (Auto) 7.01 K/uL Lymphocytes # (Auto) 0.90 K/uL Monocytes # (Auto) 0.95 K/uL Eosinophils # (Auto) 0.08 K/uL Basophils # (Auto) 0.02 K/uL RDW Standard Deviation 55.2 fL RDW Coefficient of Variation 18.7 % Immature Granulocyte % (Auto) 0.3 % Immature Granulocyte # (Auto) 0.03 K/uL Prothrombin Time 16.6 SECONDS Prothromb Time International Ratio 1.6 Sodium Level 130 mmol/L Potassium Level 3.7 mmol/L Chloride Level 95 mmol/L Carbon Dioxide Level 25 mmol/L Anion Gap 10.0 mmol/L Blood Urea Nitrogen 32 mg/dl Creatinine 2.97 mg/dl Est Creatinine Clear Calc Drug Dose 18.6 ml/min Estimated GFR () 17.5 Estimated GFR (Non- 15.1 BUN/Creatinine Ratio 10.6 Random Glucose 169 mg/dl Calcium Level 8.5 mg/dl Phosphorus Level 3.5 mg/dl Magnesium Level 2.1 mg/dl Bedside Glucose 166 mg/dl (Courtney Pacheco, PAKaityC) Assessment and Plan A 71-year-old white female with the problems below: S/p Multiple falls Left displaced rib fx T8-T10 R distal radius fracture Nondisplaced transverse process T10 fracture - Ortho service signed off: Dr. Crawley follow up in 1 week for R wrist, continue volar cast and non operative management - Thoracic spine on board for left sided hemothorax and consolidation: pain control, aggressive pulmonary toilet, check AM CXR daily for now. Today without much difference. - Mild leukocytosi - Pain control with fentanyl, lidocaine patch - Try to avoid hydrocodone 5-10 mg as this is likely making her nauseous. Cont gabapentin for nerve pain - PT/OT on board - placement for acute rehab likely with frequent falls Nausea - Likely secondary to narcotic pain meds and taking percocet on empty stomach this morning - Extra dose of zofran given, phenergan added. HTN History of VT with 2 stents - last ELAINE was on 11/17/2016 - On plavix which was continued at time of admission - Cont metoprolol tartrate 50 mg BID Atrial fibrillation - In afib, Continue rate controlling agent with amiodarone 200 mg daily - Holding Coumadin for now, INR = 1.6 Chronic anemia - Hemoglobin 9.7, follow cbc CKD stage III - Baseline appears to be around 2.8-2.9 - Today 2.97, continue fluids. Holding lasix while administering IVFs - will have these turn off after 12 hours. DM II - Cont home lantus 20 U QAM and 15 U QPM - ISS with accuchecks Hyponatremia - sodium 130 today - Continue with IVFs Dyslipidemia Hx of COPD Hx tobacco abuse disorder. DVT ppx: protonix CODE STATUS: FULL, no mechanical ventilation Disposition: From home, PT/OT to eval, encourage ambulation, discharge once pain managed (Courtney Pacheco, GERSON) PA Physician Supervision Note: I interviewed and examined the patient. Discussed with Courtney Pacheco PAC and agree with findings and plan as documented in the note. Any exceptions or clarifications are listed here: None Patient continues to have left-sided chest wall pain some nausea after taking oral opiate pain medicine has an erythema and ecchymotic area to her right arm just proximal to her splint on her palmar forearm Vital signs are stable with slightly low blood pressure Her cardiac exam is regular her lungs with splinting to the left and decreased breath sounds at the left base Rib fractures with displacement and likely hemothorax continue with conservative management and likely need for rehabilitation. Documented By: Joe Conrad (Joe Conrad M.D.)
[2017-07-10] MEDS: ONDANSETRON INJ 2 MG/ML 2 ML VIAL IV PRN (08:58)
[2017-07-10] MEDS: GABAPENTIN 300 MG CAP PO SCH ×2 (09:03→19:28)
[2017-07-10] MEDS: AMIODARONE 200 MG TAB PO SCH (09:03)
[2017-07-10] MEDS: CEROVITE ADV FORMULA TAB PO SCH (09:03)
[2017-07-10] MEDS: METOPROLOL TARTRATE 50 MG TAB PO SCH ×2 (09:04→19:26)
[2017-07-10] MEDS: SODIUM BICARBONATE 650 MG TAB PO SCH ×2 (09:04→19:27)
[2017-07-10] MEDS: CLOPIDOGREL BISULFATE 75 MG TAB PO SCH (09:04)
[2017-07-10] MEDS: ATORVASTATIN 40 MG TAB PO SCH (09:04)
[2017-07-10] MEDS: LIDODERM (LIDOCAINE) PATCH 5% TD SCH (09:05)
[2017-07-10] MEDS: INSULIN ASPART 100 UNITS/ML 3 ML PEN SC SCH ×4 (09:09→22:21)
[2017-07-10] MEDS: INSULIN GLARGINE SOLOSTAR 100 UNITS/ML 3 ML PEN SC SCH ×2 (09:10→22:20)
[2017-07-10] MEDS ORDERED: NURSING VERBAL MED ORDER ONE (10:30)
[2017-07-10] MEDS ORDERED: ONDANSETRON INJ 2 MG/ML 2 ML VIAL IV ONE (10:45)
[2017-07-10] MEDS: SODIUM CHLORIDE 0.9% 1000ML 1,000 ML IV SCH (11:57)
[2017-07-10] MEDS: PROMETHAZINE HCL INJ 25 MG in SODIUM CHLORIDE 0.9% 50ML 50 ML IV PRN ×2 (13:09→21:41)
--- NOTE | 2017-07-10 13:14 | SURGERY PROGRESS NOTE ---
DATE: 07/10/2017 Ms. Chappell was seen today with her family. She is sitting up in bed on room air. She is complaining of nausea and has vomited, but I think this may be related to her narcotics. Her abdomen is nice and soft. She has good bowel sounds. She has some ecchymotic areas on her right volar forearm above her cast. She also has ecchymosis along her left chest laterally in the lower flank area, where she fell. She does have at least 2 displaced rib fractures. Her chest x-ray today showed very little in the way of increase in the fluid and I would not intervene at this point. We should continue to keep an eye on her with daily x-rays.
[2017-07-10] MEDS: ACETAMINOPHEN 500 MG TAB PO SCH (22:22)
[2017-07-11] VITALS (10 sets, daily range): BP systolic 98–147; BP diastolic 52–86; PULSE 65–78; TEMP 37.2–38.1; O2SAT 91–99
[2017-07-11] MEDS: MoRPHine SULFATE 4 MG/ML 1 ML CARP\\VIAL IV PRN ×2 (03:35→17:27)
[2017-07-11] MEDS: SODIUM CHLORIDE 0.9% 1000ML 1,000 ML IV SCH (03:36)
[2017-07-11] MEDS: ACETAMINOPHEN 500 MG TAB PO SCH ×3 (06:11→21:26)
[2017-07-11 06:32] LABS: BASO % 0.4 %; BASO ABS # 0.04 K/uL (0-0.2); COMPLETE YES; EOS % 1.4 %; IG% 0.3 %; LYMPH % 9.1 %; LYMPH ABS # 0.89 K/uL (1.2-3.4); MEAN CELL VOLUME 80.4 fL (80-100); MEAN CORPUSCULAR HEMOGLOBIN 24.4 pg (25-34); MEAN CORPUSCULAR HGB CONC 30.3 g/dl (32-36); MEAN PLATELET VOLUME 9.8 fL (7.4-10.4); NEUT % 78.8 %; PLATELET COUNT 287 K/uL (130-400); RED BLOOD COUNT 3.98 M/uL (4.2-5.4)
[2017-07-11] MEDS: INSULIN ASPART 100 UNITS/ML 3 ML PEN SC SCH ×4 (07:00→21:00)
[2017-07-11 07:06] LABS: BUN/CREATININE RATIO 11.7 (10-20); CALCIUM 8.7 mg/dl (8.5-10.1); CREATININE 2.85 mg/dl (0.60-1.20); POTASSIUM 3.7 mmol/L (3.5-5.1)
[2017-07-11] MEDS: ONDANSETRON INJ 2 MG/ML 2 ML VIAL IV PRN (08:01)
[2017-07-11] MEDS: OXYCODONE HCL IR 5 MG TAB (IMMEDIATE RELEASE) PO PRN ×2 (08:02→22:31)
[2017-07-11] MEDS: METOPROLOL TARTRATE 50 MG TAB PO SCH ×2 (08:02→21:24)
[2017-07-11] MEDS: CLOPIDOGREL BISULFATE 75 MG TAB PO SCH (08:03)
[2017-07-11] MEDS: ATORVASTATIN 40 MG TAB PO SCH (08:03)
[2017-07-11] MEDS: AMIODARONE 200 MG TAB PO SCH (08:03)
[2017-07-11] MEDS: SODIUM BICARBONATE 650 MG TAB PO SCH ×2 (08:03→21:17)
[2017-07-11] MEDS: CEROVITE ADV FORMULA TAB PO SCH (08:03)
[2017-07-11] MEDS: MOMETASONE/FORMOTEROL (DULERA) INH INH SCH ×2 (08:04→21:26)
[2017-07-11] MEDS: LIDODERM (LIDOCAINE) PATCH 5% TD SCH (08:04)
[2017-07-11] MEDS: GABAPENTIN 300 MG CAP PO SCH ×2 (08:04→21:16)
[2017-07-11] MEDS: INSULIN GLARGINE SOLOSTAR 100 UNITS/ML 3 ML PEN SC SCH ×2 (08:09→22:17)
[2017-07-11] MEDS ORDERED: PIPERACILL/TAZOBAC IV 3.375 GM in DEXTROSE 5% 100ML IV ONE (08:45)
[2017-07-11] MEDS ORDERED: PIPERACILL/TAZOBAC CONSULT ACTIVE PRN (08:45)
--- NOTE | 2017-07-11 11:35 | SURGERY PROGRESS NOTE ---
DATE: 07/11/2017 DATE: 07/11/2017 Ms. Chappell was seen today on 07/11/2017. She did not get a chest x-ray today. Having said that however her requirements are varying from 2-3 liters and she is currently 93% on room air. She does have difficulty in taking a depth breath. She does have some decreased breath sounds on the left. I am going to check a chest x-ray in the morning. At this point I do not have enough evidence that I would want to intervene in her chest.
--- NOTE | 2017-07-11 11:36 | Progress Note ---
Subjective Date of Service: Jul 11, 2017. Subjective pt has persistent chest wall pain, cannot cough due to pain, did have fever overnight, right arm looks more like a resolving contusion than cellulitis Problem List Medical Problems: (1) Acute coronary syndrome Status: Acute (2) Acute electrocardiogram changes Status: Acute (3) Ankle pain Status: Acute (4) Chronic kidney disease Status: Acute (5) Colitis Status: Acute (6) Fall in home Status: Acute (7) Fracture of rib of left side Status: Acute (8) Fracture of right distal radius Status: Acute (9) Fracture of right ulnar styloid Status: Acute (10) Frequent falls Status: Acute (11) Hemothorax Status: Acute (12) NSTEMI (non-ST elevated myocardial infarction) Status: Acute (13) Right wrist fracture Status: Acute Review of Systems Constitutional: + fever, + weakness, + fatigue, No chills Respiratory: + cough, + shortness of breath, + dyspnea on exertion, + dyspnea at rest, No sputum Cardiac: + chest pain, No orthopnea, No PND, No edema Abdomen: + constipation, No pain, No nausea, No vomiting, No diarrhea Female : No dysuria, No urinary frequency, No hematuria Neurologic: No memory loss, No paralysis Psychiatric: + depression symptoms, No anhedonism Objective Vital Signs Date Time Temp Pulse Resp B/P (MAP) Pulse Ox O2 Delivery O2 Flow Rate FiO2 07/11/17 08:00 93 Nasal Cannula 3.0 07/11/17 07:57 37.7 76 24 125/86 (99) 93 Nasal Cannula 3.0 07/11/17 04:00 97 Nasal Cannula 2.0 07/11/17 03:20 38.1 68 19 147/75 (99) 99 Nasal Cannula 3.0 07/11/17 00:00 97 Nasal Cannula 2.0 07/10/17 22:33 36.6 70 19 173/82 (112) 91 Nasal Cannula 3.0 07/10/17 20:55 37.3 87 20 149/70 (96) 93 Nasal Cannula 2.5 07/10/17 17:30 97 Nasal Cannula 2.0 07/10/17 15:42 36.7 77 20 163/82 (109) 97 Nasal Cannula 2.0 07/10/17 11:44 77 26 125/69 (87) 95 Nasal Cannula 2.0 Physical Exam General Appearance: WD/WN, + mild distress Eyes: normal inspection, PERRL Respiratory/Chest: chest non-tender, + decreased breath sounds, + accessory muscle use, + rhonchi Cardiovascular: regular rate, rhythm, + systolic murmur Abdomen: normal bowel sounds, non tender, soft Extremities: + pertinent finding (has splint on right wrist, bruising above it with lessened redness now more purple) Laboratory Results Last 24 Hours Test 07/10/17 11:26 07/10/17 16:33 07/10/17 20:44 07/11/17 06:10 Bedside Glucose 206 mg/dl 160 mg/dl 181 mg/dl White Blood Count 9.80 K/uL Red Blood Count 3.98 M/uL Hemoglobin 9.7 g/dL Hematocrit 32.0 % Mean Corpuscular Volume 80.4 fL Mean Corpuscular Hemoglobin 24.4 pg Mean Corpuscular Hemoglobin Concent 30.3 g/dl Platelet Count 287 K/uL Mean Platelet Volume 9.8 fL Neutrophils (%) (Auto) 78.8 % Lymphocytes (%) (Auto) 9.1 % Monocytes (%) (Auto) 10.0 % Eosinophils (%) (Auto) 1.4 % Basophils (%) (Auto) 0.4 % Neutrophils # (Auto) 7.72 K/uL Lymphocytes # (Auto) 0.89 K/uL Monocytes # (Auto) 0.98 K/uL Eosinophils # (Auto) 0.14 K/uL Basophils # (Auto) 0.04 K/uL RDW Standard Deviation 54.6 fL RDW Coefficient of Variation 18.6 % Immature Granulocyte % (Auto) 0.3 % Immature Granulocyte # (Auto) 0.03 K/uL Sodium Level 131 mmol/L Potassium Level 3.7 mmol/L Chloride Level 100 mmol/L Carbon Dioxide Level 23 mmol/L Anion Gap 8.0 mmol/L Blood Urea Nitrogen 33 mg/dl Creatinine 2.85 mg/dl Est Creatinine Clear Calc Drug Dose 19.9 ml/min Estimated GFR () 18.4 Estimated GFR (Non- 15.9 BUN/Creatinine Ratio 11.7 Random Glucose 70 mg/dl Calcium Level 8.7 mg/dl Test 07/11/17 06:21 07/11/17 06:42 Bedside Glucose 63 mg/dl 81 mg/dl Assessment and Plan A 71-year-old white female with fall and rib fractures, some displaced, hemothorax now with fever Fever concern for pneumonia, however will also check blood cultures and urine, start Zosyn to cover pulmonary source S/p Multiple falls Left displaced rib fx T8-T10 R distal radius fracture Nondisplaced transverse process T10 fracture - Ortho service signed off: Dr. Crawley follow up in 1 week for R wrist, continue volar cast and non operative management - CardioThoracic spine on board for left sided hemothorax and consolidation: pain control, aggressive pulmonary toilet - Pain control with fentanyl, lidocaine patch - Try to avoid hydrocodone 5-10 mg as this is likely making her nauseous. Cont gabapentin for nerve pain - PT/OT on board - placement for acute rehab likely with frequent falls Nausea - Likely secondary to narcotic pain meds try to encourage non opiate pain medicines - Extra dose of zofran given, phenergan added. HTN History of MS with 2 stents - last ELAINE was on 11/17/2016 - On plavix which was continued at time of admission - Cont metoprolol tartrate 50 mg BID Atrial fibrillation - In afib, Continue rate controlling agent with amiodarone 200 mg daily - Holding Coumadin for now, follow INR Chronic anemia last iron slightly low, will have on ferrous gluconate po - Hemoglobin 9.7, follow cbc CKD stage III - Baseline appears to be around 2.8-2.9 - . Holding lasix while administering IVFs DM II lantus 20 U QAM and 15 U QPM, ISS with accuchecks Hyponatremia is no fluid restriction, urine sodium is high suggesting SIADH Dyslipidemia lipitor Hx of COPD has been clinically stable despite chest wall injury, on home inhalers Hx tobacco abuse disorder counselled on stop smoking CODE STATUS: FULL, no mechanical ventilation Disposition: From home, PT/OT to eval, may need rehab
[2017-07-11] MEDS: PIPERACILL/TAZOBAC IV 3.375 GM in DEXTROSE 5% 100ML 100 ML IV SCH (17:26)
[2017-07-11] MEDS: FERROUS GLUCONATE 324 MG TAB PO SCH (17:30)
[2017-07-12] VITALS (9 sets, daily range): BP systolic 100–142; BP diastolic 61–80; PULSE 66–84; TEMP 36.6–37.6; O2SAT 94–98
[2017-07-12] MEDS: PIPERACILL/TAZOBAC IV 3.375 GM in DEXTROSE 5% 100ML 100 ML IV SCH ×2 (05:28→18:45)
[2017-07-12] MEDS: ACETAMINOPHEN 500 MG TAB PO SCH ×3 (05:30→21:06)
[2017-07-12 06:49] LABS: BASO % 0.3 %; BASO ABS # 0.03 K/uL (0-0.2); COMPLETE YES; EOS % 1.5 %; HEMATOCRIT 30.3 % (37-47); IG% 0.2 %; LYMPH % 11.4 %; LYMPH ABS # 1.11 K/uL (1.2-3.4); MEAN CELL VOLUME 81.2 fL (80-100); MEAN CORPUSCULAR HEMOGLOBIN 25.5 pg (25-34); MEAN CORPUSCULAR HGB CONC 31.4 g/dl (32-36); MEAN PLATELET VOLUME 9.9 fL (7.4-10.4); NEUT % 78.6 %; PLATELET COUNT 270 K/uL (130-400); RED BLOOD COUNT 3.73 M/uL (4.2-5.4); WHITE BLOOD COUNT 9.76 K/uL (4.8-10.8)
[2017-07-12 07:25] LABS: BUN/CREATININE RATIO 11.6 (10-20); CALCIUM 8.6 mg/dl (8.5-10.1); CREATININE 3.87 mg/dl (0.60-1.20); POTASSIUM 4.1 mmol/L (3.5-5.1)
[2017-07-12] MEDS: MOMETASONE/FORMOTEROL (DULERA) INH INH SCH ×2 (08:49→21:01)
[2017-07-12] MEDS: OXYCODONE HCL IR 5 MG TAB (IMMEDIATE RELEASE) PO PRN (08:51)
--- NOTE | 2017-07-12 09:30 | DIAGNOSTIC IMAGING REPORT ---
CHEST 2 VIEWS ROUTINE HISTORY: 71 years-old Female left hemothorax follow-up study in a patient with left-sided pneumothorax COMPARISON: Chest radiographs 07/10/2017, CT abdomen and pelvis 07/09/2017 TECHNIQUE: Upright AP and lateral views of the chest FINDINGS: Small left pleural effusion has slightly increased in size from comparison. Subsegmental left basilar opacities are present. Multiple left-sided rib fractures redemonstrated. No pneumothorax. Right lung is generally clear. Multilevel endplate changes of the spine. Atherosclerosis of the aorta. IMPRESSION: 1. Small left-sided pleural effusion has mildly increased in size from comparison with left basilar opacities suggesting atelectasis or pneumonia. 2. No pneumothorax identified. 3. Multiple left-sided rib fractures redemonstrated. The above report was generated using voice recognition software. It may contain grammatical, syntax or spelling errors. Electronically signed by: Parker Velásquez M.D. 07/12/2017 9:29 AM Dictated Date/Time: 07/12/2017 9:26 AM
[2017-07-12] MEDS: INSULIN ASPART 100 UNITS/ML 3 ML PEN SC SCH ×4 (09:42→20:57)
[2017-07-12] MEDS: AMIODARONE 200 MG TAB PO SCH (09:44)
[2017-07-12] MEDS: METOPROLOL TARTRATE 50 MG TAB PO SCH ×2 (09:45→20:21)
[2017-07-12] MEDS: CEROVITE ADV FORMULA TAB PO SCH (09:45)
[2017-07-12] MEDS: ATORVASTATIN 40 MG TAB PO SCH (09:45)
[2017-07-12] MEDS: CLOPIDOGREL BISULFATE 75 MG TAB PO SCH (09:46)
[2017-07-12] MEDS: GABAPENTIN 300 MG CAP PO SCH ×2 (09:46→20:21)
[2017-07-12] MEDS: SODIUM BICARBONATE 650 MG TAB PO SCH ×2 (09:46→20:21)
[2017-07-12] MEDS: LIDODERM (LIDOCAINE) PATCH 5% TD SCH (09:47)
[2017-07-12] MEDS: INSULIN GLARGINE SOLOSTAR 100 UNITS/ML 3 ML PEN SC SCH ×2 (09:53→20:59)
[2017-07-12] MEDS: MoRPHine SULFATE 4 MG/ML 1 ML CARP\\VIAL IV PRN (09:57)
[2017-07-12] MEDS ORDERED: BISACODYL 10 MG SUPP PR PRN (11:00)
[2017-07-12 11:21] LABS: INR 1.4 (0.9-1.1); PROTHROMBIN TIME (PATIENT) 14.6 SECONDS (9.0-12.0)
[2017-07-12] MEDS ORDERED: HYDROmorphone INJ 0.5 MG/0.5 ML SYR ONE (11:30)
[2017-07-12] MEDS: ALBUT/IPRATROP 3MG/0.5MG NEB 3 ML VIAL INH SCH ×2 (12:47→20:24)
[2017-07-12] MEDS ORDERED: LIDOCAINE HCL 2% JELLY 30 ML TUBE EXT ONE (13:36)
[2017-07-12] MEDS: POLYETHYLENE (MIRALAX) 17 GM PACK PO SCH ×2 (14:11→20:21)
[2017-07-12] MEDS: SENNA 8.6 MG TAB PO SCH (14:12)
[2017-07-12] MEDS: NYSTATIN SUSP 500,000 U/5 ML UDC PO SCH ×3 (14:15→20:57)
[2017-07-12] MEDS: FERROUS GLUCONATE 324 MG TAB PO SCH (14:17)
[2017-07-12 14:27] LABS: URINE APPEARANCE CLEAR (CLEAR); URINE BILIRUBIN NEG (NEG); URINE COLOR YELLOW; URINE NITRITE NEG (NEG); URINE SPECIFIC GRAVITY 1.018 (1.000-1.030); UROBILINOGEN NEG (NEG)
[2017-07-12 14:29] LABS: MANUAL MICROSCOPIC REQUIRED? NO; REVIEW REQ? NO
--- NOTE | 2017-07-12 15:33 | Progress Note ---
Subjective Date of Service: Jul 12, 2017. Subjective Pt evaluation today including: conversation w/ patient, physical exam, chart review, lab review, review of studies (cxr, CTs, etc), review of inpatient medication list Pain: left chest - pleuritic; not relieved w/ morphine PO Intake: poor until this AM pt reports dyspnea with moving in the bed and trying to get from the bed to bathroom she has severe pain with movement and deep breathing mild cough but no sputum no central/substernal chest pain continues with low-grade fevers she is thirsty today and her mouth is dry Problem List Medical Problems: (1) Acute coronary syndrome Status: Acute (2) Acute electrocardiogram changes Status: Acute (3) Ankle pain Status: Acute (4) Chronic kidney disease Status: Acute (5) Colitis Status: Acute (6) Fall in home Status: Acute (7) Fracture of rib of left side Status: Acute (8) Fracture of right distal radius Status: Acute (9) Fracture of right ulnar styloid Status: Acute (10) Frequent falls Status: Acute (11) Hemothorax Status: Acute (12) NSTEMI (non-ST elevated myocardial infarction) Status: Acute (13) Right wrist fracture Status: Acute Review of Systems Constitutional: + fever, No chills Respiratory: + cough, + shortness of breath, + dyspnea on exertion Cardiac: + see HPI, + chest pain, No orthopnea Abdomen: + constipation, No pain Objective Vital Signs Date Time Temp Pulse Resp B/P (MAP) Pulse Ox O2 Delivery O2 Flow Rate FiO2 07/12/17 15:09 36.6 68 20 129/72 (91) 98 2.0 07/12/17 15:06 68 16 96 Nasal Cannula 1.0 07/12/17 12:47 84 16 96 Nasal Cannula 1.5 07/12/17 08:00 Nasal Cannula 2.0 07/12/17 07:55 36.7 66 20 100/61 (74) 98 07/12/17 00:09 37.6 76 20 100/62 (75) 94 Nasal Cannula 2.0 07/12/17 00:00 Nasal Cannula 2.0 07/11/17 20:00 Nasal Cannula 2.0 07/11/17 16:15 98 Room Air 2.0 Physical Exam General Appearance: no apparent distress ENT: + pertinent finding (MM very dry; thrush on tongue) Neck: no JVD Respiratory/Chest: no respiratory distress, no accessory muscle use, + decreased breath sounds (left base), + wheezing, + pertinent finding (no rales) Cardiovascular: no gallop, + systolic murmur (2/6 RUSB/left apex), + irregularly irregular Abdomen: normal bowel sounds, non tender, soft, no organomegaly, + distended ( modest) Extremities: no pedal edema Neurologic/Psychiatric: alert, oriented x 3 Skin: + pertinent finding (extensive ecchymoses on right arm and left flank/ left back) Laboratory Results Last 24 Hours Test 07/11/17 17:25 07/11/17 18:42 07/11/17 20:25 07/12/17 04:00 Bedside Glucose 60 mg/dl 107 mg/dl 103 mg/dl 74 mg/dl Test 07/12/17 06:08 07/12/17 07:24 07/12/17 10:58 07/12/17 11:27 White Blood Count 9.76 K/uL Red Blood Count 3.73 M/uL Hemoglobin 9.5 g/dL Hematocrit 30.3 % Mean Corpuscular Volume 81.2 fL Mean Corpuscular Hemoglobin 25.5 pg Mean Corpuscular Hemoglobin Concent 31.4 g/dl Platelet Count 270 K/uL Mean Platelet Volume 9.9 fL Neutrophils (%) (Auto) 78.6 % Lymphocytes (%) (Auto) 11.4 % Monocytes (%) (Auto) 8.0 % Eosinophils (%) (Auto) 1.5 % Basophils (%) (Auto) 0.3 % Neutrophils # (Auto) 7.67 K/uL Lymphocytes # (Auto) 1.11 K/uL Monocytes # (Auto) 0.78 K/uL Eosinophils # (Auto) 0.15 K/uL Basophils # (Auto) 0.03 K/uL RDW Standard Deviation 55.6 fL RDW Coefficient of Variation 18.6 % Immature Granulocyte % (Auto) 0.2 % Immature Granulocyte # (Auto) 0.02 K/uL Sodium Level 129 mmol/L Potassium Level 4.1 mmol/L Chloride Level 97 mmol/L Carbon Dioxide Level 25 mmol/L Anion Gap 8.0 mmol/L Blood Urea Nitrogen 45 mg/dl Creatinine 3.87 mg/dl Est Creatinine Clear Calc Drug Dose 14.6 ml/min Estimated GFR () 12.7 Estimated GFR (Non- 11.0 BUN/Creatinine Ratio 11.6 Random Glucose 69 mg/dl Calcium Level 8.6 mg/dl Bedside Glucose 96 mg/dl 136 mg/dl Prothrombin Time 14.6 SECONDS Prothromb Time International Ratio 1.4 Osmolality 288 mOsm/kg Total Creatine Kinase 83 U/L Test 07/12/17 13:55 Urine Color YELLOW Urine Appearance CLEAR Urine pH 5.0 Urine Specific [place] 1.018 Urine Protein 1+ Urine Glucose (UA) NEG Urine Ketones NEG Urine Occult Blood NEG Urine Nitrite NEG Urine Bilirubin NEG Urine Urobilinogen NEG Urine Leukocyte Esterase NEG Urine WBC (Auto) 1-5 /hpf Urine RBC (Auto) 5-10 /hpf Urine Hyaline Casts (Auto) 1-5 /lpf Urine Epithelial Cells (Auto) 5-10 /lpf Urine Bacteria (Auto) NEG Urine Random Sodium 6 mEq/L Assessment and Plan 71yo female - 1. fall with resulting right wrist fracture and multiple left-sided rib fractures - * nonoperative management for the right wrist fracture for now; cont splint * pain control for both fracture sites * d/c morphine; change to dilaudid * tylenol prn * lidoderm patches prn * CT surgery following for ribs & hemothorax 2. left-sided hemothorax 2nd to fall, rib fractures, and use of coumadin chronically - * hemothorax mildly worse radiographically today but o2 sats are stable and not requiring additional o2 * thoracic surgery continues to follow * continue incentive spirometry and hold coumadin 3. hyponatremia - check urine osm, urine Na, and serum osm. clinically appears volume-depleted, possibly related to poor oral intake last 48 hours. likely will need hydration. 4. constipation - add senna & miralax BID. 5. fever - source uncertain. awaiting u/a and urine cx. blood cx's negative. could have some element of LLL pneumonia. currently on zosyn, day # 2 of such. 6. DVT proph - since coumadin has been stopped - SCDs. 7. HTN - controlled. 8. a. fib - rates acceptable. cont to hold coumadin. 9. T2DM - controlled. 10. minimal elevation of CPK at presentation - repeat level today was normal. 11. acute renal failure in setting of CKD stage 4 - send urine Na and urine Osm. Place hodges. May need IVF. Hold lasix. 12. CAD - no ischemic sx's at this time. 13. thrush - nystatin solution QID. 14. COPD - wheezing likely due to such. Cont inhalers/nebs. 15. anemia - H/H holding steady despite hemothorax. Daily CBC. Continued [facility] stay due to: inadequate oral pain control, ambulation difficulties, multiple IV medications needed Discharge planning: uncertain
[2017-07-12] MEDS: SODIUM CHLORIDE 0.9% 1000ML 1,000 ML IV SCH (15:35)
[2017-07-12] MEDS: HYDROmorphone INJ 0.5 MG/0.5 ML SYR IV PRN (20:22)
[2017-07-13] VITALS (12 sets, daily range): BP systolic 108–147; BP diastolic 72–84; PULSE 72–98; TEMP 36.6–37.5; O2SAT 85–99
[2017-07-13] MEDS: OXYCODONE HCL IR 5 MG TAB (IMMEDIATE RELEASE) PO PRN ×2 (04:59→15:30)
[2017-07-13] MEDS: ACETAMINOPHEN 500 MG TAB PO SCH ×3 (05:47→22:00)
[2017-07-13] MEDS: PIPERACILL/TAZOBAC IV 3.375 GM in DEXTROSE 5% 100ML 100 ML IV SCH (05:47)
[2017-07-13] MEDS: SODIUM CHLORIDE 0.9% 1000ML 1,000 ML IV SCH (05:59)
[2017-07-13 06:52] LABS: BASO % 0.3 %; BASO ABS # 0.03 K/uL (0-0.2); COMPLETE YES; EOS % 1.7 %; HEMATOCRIT 29.2 % (37-47); IG% 0.3 %; LYMPH % 5.4 %; LYMPH ABS # 0.57 K/uL (1.2-3.4); MEAN CELL VOLUME 80.4 fL (80-100); MEAN CORPUSCULAR HEMOGLOBIN 25.1 pg (25-34); MEAN CORPUSCULAR HGB CONC 31.2 g/dl (32-36); MEAN PLATELET VOLUME 9.7 fL (7.4-10.4); MONO % 6.6 %; NEUT % 85.7 %; PLATELET COUNT 277 K/uL (130-400); RED BLOOD COUNT 3.63 M/uL (4.2-5.4)
[2017-07-13 07:17] LABS: BUN/CREATININE RATIO 12.3 (10-20); CALCIUM 8.4 mg/dl (8.5-10.1); CREATININE 3.64 mg/dl (0.60-1.20); POTASSIUM 4.6 mmol/L (3.5-5.1)
[2017-07-13] MEDS: ALBUT/IPRATROP 3MG/0.5MG NEB 3 ML VIAL INH SCH ×4 (07:47→19:56)
[2017-07-13 08:26] LABS: THYROID STIMULATING HORMONE 1.68 uIu/ml (0.300-4.500); URIC ACID 6.5 mg/dl (2.6-7.2)
[2017-07-13] MEDS: INSULIN ASPART 100 UNITS/ML 3 ML PEN SC SCH ×4 (09:07→20:27)
[2017-07-13] MEDS: ONDANSETRON INJ 2 MG/ML 2 ML VIAL IV PRN (09:12)
[2017-07-13] MEDS: HYDROmorphone INJ 0.5 MG/0.5 ML SYR IV PRN ×2 (09:12→17:04)
[2017-07-13] MEDS: MOMETASONE/FORMOTEROL (DULERA) INH INH SCH ×2 (09:26→20:35)
[2017-07-13] MEDS: AMIODARONE 200 MG TAB PO SCH (09:27)
[2017-07-13] MEDS: FERROUS GLUCONATE 324 MG TAB PO SCH (09:29)
[2017-07-13] MEDS: ATORVASTATIN 40 MG TAB PO SCH (09:29)
[2017-07-13] MEDS: CEROVITE ADV FORMULA TAB PO SCH (09:30)
[2017-07-13] MEDS: GABAPENTIN 300 MG CAP PO SCH ×2 (09:30→20:37)
[2017-07-13] MEDS: METOPROLOL TARTRATE 50 MG TAB PO SCH ×2 (09:30→20:37)
[2017-07-13] MEDS: CLOPIDOGREL BISULFATE 75 MG TAB PO SCH (09:30)
[2017-07-13] MEDS: SENNA 8.6 MG TAB PO SCH (09:31)
[2017-07-13] MEDS: SODIUM BICARBONATE 650 MG TAB PO SCH ×2 (09:31→20:37)
[2017-07-13] MEDS: POLYETHYLENE (MIRALAX) 17 GM PACK PO SCH ×3 (09:36→20:38)
[2017-07-13] MEDS: NYSTATIN SUSP 500,000 U/5 ML UDC PO SCH ×4 (09:37→20:34)
[2017-07-13] MEDS: LIDODERM (LIDOCAINE) PATCH 5% TD SCH (09:39)
[2017-07-13] MEDS: INSULIN GLARGINE SOLOSTAR 100 UNITS/ML 3 ML PEN SC SCH ×2 (09:39→20:42)
--- NOTE | 2017-07-13 10:40 | DIAGNOSTIC IMAGING REPORT ---
CHEST ONE VIEW PORTABLE CLINICAL HISTORY: 71 years-old Female presenting with left sided hemothorax w/ rib fractures. TECHNIQUE: Portable upright AP view of the chest was obtained. COMPARISON: 07/12/2017. FINDINGS: Atherosclerosis of aortic arch. Cardiac silhouette remains enlarged. Elevation of the left hemidiaphragm with left basilar opacity persists. Small left pleural effusion. No pneumothorax. Right lung and pleural space clear. Mild pulmonary vascular prominence and mild bronchial wall thickening suggested. Reported rib fractures better evaluated on recent CT. Upper abdomen normal. IMPRESSION: 1. Cardiomegaly with pulmonary vascular prominence and bronchial wall cuffing increased from prior, suggesting volume overload. No costa pulmonary edema. 2. Left basilar consolidation or atelectasis with small left pleural effusion, unchanged. 3. Reported multiple bilateral rib fractures better evaluated on prior CT. Electronically signed by: Mateo Orozco M.D. 07/13/2017 10:39 AM Dictated Date/Time: 07/13/2017 10:37 AM
--- NOTE | 2017-07-13 10:51 | Urology Consultation ---
History General Date of Service: Jul 13, 2017. Chief Complaint: Difficult hodges Primary Care Physician: Sanchez Barroso M.D. History of Present Illness Patient trouble voiding with need for critical management of i/o. Unable to pass catheter due to stenosis. Previously had voided well. Never had urinary trouble prior to this. Had catheter many years ago without issues. Laboratory Labs were reviewed and are within normal limits unless listed below. Labs are available in the chart and at [facility] Problem List Medical Problems: (1) Acute coronary syndrome Status: Acute (2) Acute electrocardiogram changes Status: Acute (3) Ankle pain Status: Acute (4) Chronic kidney disease Status: Acute (5) Colitis Status: Acute (6) Fall in home Status: Acute (7) Fracture of rib of left side Status: Acute (8) Fracture of right distal radius Status: Acute (9) Fracture of right ulnar styloid Status: Acute (10) Frequent falls Status: Acute (11) Hemothorax Status: Acute (12) NSTEMI (non-ST elevated myocardial infarction) Status: Acute (13) Right wrist fracture Status: Acute Family History Diabetes mellitus FH: gallbladder disease FH: heart disease FH: lung disease FHx: cancer Hypertension Social History Hx Tobacco Use In Past Year?: No Marital status: Occupation status: retired Immunizations History of Influenza Vaccine: Yes Influenza Vaccine Date: May 16, 2006 History of Tetanus Vaccine?: Yes History of Pneumococcal: No History of Hepatitis B Vaccine: No History of MDRO No Allergies Coded Allergies: No Known Allergies (Verified , 07/09/17) Medications Home Medications: Home Meds and Scripts Medications Dose Route/Sig Max Daily Dose Days Date Category Dose Instructions Nitrostat (Nitroglycerin) 0.4 Mg Tab 0.4 Mg UT PRN 07/08/17 Reported Daily Vitamin Formula+Ir (Multiple Vitamins W/ Iron) 1 Tab Tab 1 Tab PO DAILY 07/08/17 Reported Sodium Bicarbonate 650 Mg Tab 1 Tab PO BID 07/08/17 Reported Ultram (Tramadol HCl) 50 Mg Tab 1-2 Tab PO Q4H PRN 07/08/17 Rx For Initial Treatment Plavix (Clopidogrel Bisulfate) 75 Mg Tab 1 Tab PO DAILY 03/12/17 Reported Lopressor (Metoprolol Tartrate) 50 Mg Tab 1 Tab PO BID 03/12/17 Reported Novolog Penfill (Insulin Aspart) 100 Unit/Ml Inj 10 Units SC SUPPER 03/12/17 Reported Dulera 100/5 Mcg (Mometasone Furoate-Formoterol) 1 Aer Aer 2 Puffs INH BID 03/12/17 Reported Lasix (Furosemide) 20 Mg Tab 3 Tab PO BID 03/12/17 Reported Amiodarone HCl 200 Mg Tab 200 Mg PO DAILY 03/12/17 Reported Lipitor (Atorvastatin Calcium) 40 Mg Tab 40 Mg PO DAILY 02/19/17 Reported Klor-Con (Potassium Chloride) 20 Meq Tabcr 10 Meq PO DAILY 02/19/17 Reported Jantoven (Warfarin Sodium) 5 Mg Tab 5 Mg PO DAILY 02/19/17 Reported Neurontin (Gabapentin) 300 Mg Cap 300 Mg PO BID 02/19/17 Reported Lantus Solostar (Insulin Glargine) 100 Unit/Ml Inj 20 Units SC QPM 09/01/16 Reported Lantus Solostar (Insulin Glargine) 100 Unit/Ml Inj 15 Units SC QAM 09/01/16 Reported Tylenol (Acetaminophen) 500 Mg Tab 500 Mg PO DAILY PRN 09/01/16 Reported Prilosec (Omeprazole) 20 Mg Cap 20 Mg PO BID 05/14/15 Reported Xanax (Alprazolam) 0.5 Mg Tab 0.25 Mg PO HS PRN 05/14/15 Reported Inpatient Medications: Current Inpatient Medications Medications (Trade) Dose Ordered Sig/Dajuan Route Start Time Stop Time Status Last Admin Dose Admin Al Hydrox/Mg Hydrox/Simethicone (Maalox Max Susp) 15 ml Q4H PRN PO 07/09/17 11:00 08/08/17 10:59 Magnesium Hydroxide (Milk Of Magnesia Susp) 30 ml Q12H PRN PO 07/09/17 11:00 08/08/17 10:59 Zolpidem Tartrate (Ambien Tab) 5 mg HSZ PRN PO 07/09/17 11:00 08/08/17 10:59 Ondansetron HCl (Zofran Inj) 4 mg Q6H PRN IV 07/09/17 11:00 08/08/17 10:59 07/13/17 09:12 4 MG Lidocaine (Lidoderm Patch 5%) 1 patch QAM TD 07/10/17 09:00 08/09/17 08:59 07/13/17 09:39 1 PATCH Miscellaneous (Remove Lidoderm Patch) 1 ea DAILY@21 N/A 07/09/17 21:00 08/08/17 20:59 07/12/17 21:08 1 EA Amiodarone HCl (Cordarone Tab) 200 mg DAILY PO 07/10/17 09:00 08/09/17 08:59 07/13/17 09:27 200 MG Atorvastatin Calcium (Lipitor Tab) 40 mg DAILY PO 07/10/17 09:00 08/09/17 08:59 07/13/17 09:29 40 MG Clopidogrel Bisulfate (plAVix TAB) 75 mg DAILY PO 07/10/17 09:00 08/09/17 08:59 07/13/17 09:30 75 MG Gabapentin (Neurontin Cap) 300 mg BID PO 07/09/17 21:00 08/08/17 20:59 07/13/17 09:30 300 MG Insulin Glargine (Lantus Solostar Pen) 15 units QAM SC 07/10/17 09:00 08/09/17 08:59 07/13/17 09:39 15 UNITS Insulin Glargine (Lantus Solostar Pen) 20 units QPM SC 07/09/17 21:00 08/08/17 20:59 07/12/17 20:59 20 UNITS Metoprolol Tartrate (Lopressor Tab) 50 mg BID PO 07/09/17 21:00 08/08/17 20:59 07/13/17 09:30 50 MG Nitroglycerin (Nitrostat Tab) 0.4 mg UD PRN UT 07/09/17 11:00 08/08/17 10:59 Sodium Bicarbonate (Sodium Bicarbonate Tab) 650 mg BID PO 07/09/17 21:00 08/08/17 20:59 07/13/17 09:31 650 MG Multivitamins/ Minerals (Multivitamin W/ Minerals Tab) 1 tab DAILY PO 07/10/17 09:00 08/09/17 08:59 07/13/17 09:30 1 TAB Insulin Aspart (novoLOG ASPART) SLIDING SCALE G... ACHS RI 07/09/17 11:00 08/08/17 10:59 07/12/17 18:20 1 UNITS Glucose (Glucose 40% Gel) 15-30 GRAMS 15 GRAMS... UD PRN PO 07/09/17 12:00 08/08/17 11:59 Glucose (Glucose Chew Tab) 4-8 Tablets 4 Tabl... UD PRN PO 07/09/17 12:00 08/08/17 11:59 Dextrose (Dextrose 50% 50ML Syringe) 25-50ML OF 50% DW IV FOR... UD PRN IV 07/09/17 12:00 08/08/17 11:59 Glucagon (Glucagon Inj) 1 mg UD PRN SQ 07/09/17 12:00 08/08/17 11:59 Promethazine HCl 25 mg/Sodium Chloride 51 ml @ 204 mls/hr Q6H PRN IV 07/10/17 13:00 08/09/17 12:59 07/10/17 21:41 204 MLS/HR Acetaminophen (Tylenol Tab) 1,000 mg Q8 PO 07/10/17 22:00 08/09/17 21:59 07/13/17 05:47 1,000 MG Oxycodone HCl (Roxicodone Immediate Rel Tab) 10 mg Q6 PRN PO 07/10/17 16:45 07/24/17 16:44 07/13/17 04:59 10 MG Mometasone Furoate/ Formoterol Fumar (Dulera 100-5 Mcg/Act) 2 puffs BID INH 07/11/17 09:00 08/10/17 08:59 07/13/17 09:26 2 PUFFS Piperacillin Sod/ Tazobactam Sod 3.375 gm/Dextrose 115 ml @ 28.75 mls/ hr Q12H IV 07/11/17 18:00 07/18/17 17:59 07/13/17 05:47 28.75 MLS/HR Piperacillin Sod/ Tazobactam Sod (Consult) 1 ea UD PRN N/A 07/11/17 08:45 08/10/17 08:44 Ferrous Gluconate (Ferrous Gluconate Tab) 324 mg QAM PO 07/11/17 14:00 08/10/17 13:59 07/13/17 09:29 324 MG Polyethylene (Miralax Powder Packet) 17 gm BID PO 07/12/17 12:45 08/08/17 12:44 07/12/17 20:21 17 GM Senna (Senokot Tab) 17.2 mg QAM PO 07/12/17 12:45 08/11/17 12:44 07/13/17 09:31 17.2 MG Bisacodyl (Dulcolax Supp) 10 mg Q12H PRN DC 07/12/17 11:00 08/11/17 10:59 Nystatin (Mycostatin Susp) 5 ml QID PO 07/12/17 12:45 07/22/17 12:44 07/13/17 09:37 5 ML Albuterol/ Ipratropium (Duoneb) 3 ml QIDR INH 07/12/17 16:00 08/11/17 15:59 07/13/17 07:47 3 ML Hydromorphone HCl (Dilaudid Inj) 0.5 mg Q4H PRN IV 07/12/17 11:00 07/26/17 10:59 07/13/17 09:12 0.5 MG Review of Systems Review of Systems All Other Systems: Reviewed and Negative (All systems reviewed. All history ( soc, fam, surg, and medical) reviewed. Pertinent values in hPI) Physical Exam Vital Signs: Vital Signs Past 12 Hours Date Time Temp Pulse Resp B/P (MAP) Pulse Ox O2 Delivery O2 Flow Rate FiO2 07/13/17 09:01 86 147/73 (97) 94 Nasal Cannula 2.0 07/13/17 07:49 81 16 87 Nasal Cannula 1.0 07/13/17 07:44 37.3 75 20 108/72 (84) 96 Nasal Cannula 2.0 07/13/17 01:43 98 Nasal Cannula 2.0 07/12/17 23:22 36.9 80 18 125/77 (93) 95 Nasal Cannula 2.0 Humidified Oxygen Physical Exam: General Appearance: WD/WN, no apparent distress Eyes: bilateral eyes normal inspection ENT: normal ENT inspection Neck: supple, no JVD Respiratory/Chest: no respiratory distress, no accessory muscle use Cardiovascular: regular rate, rhythm Genitourinary - Female: External Genitalia: normal external genitalia Urethra: scarring Extremities: normal range of motion 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 AUR 2. Meatal Stenosis 3. Multiple medical issues Hodges placed bedside with passive dilation by local lidocaine jelly injection. 16 Fr catheter placed with good return of urine. No hematuria. Prepped and draped in usual fashion. Verbal consent from patient. Maintain catheter for 5-7 days and increase activity. Follow up in 4 weeks to reassess.
[2017-07-13] MEDS ORDERED: MECLIZINE HCL 12.5 MG TAB PO PRN (11:00)
[2017-07-13] MEDS ORDERED: FUROSEMIDE INJ 60 MG in SYRINGE 0 ML IV ONE (15:00)
--- NOTE | 2017-07-13 15:07 | Hospitalist Progress Note ---
Hospitalist Progress Note Date of Service Jul 13, 2017. (Cristina Calderon ., LISANDROC) Subjective Pt evaluation today including: conversation w/ patient, physical exam, chart review, lab review, review of studies, review of inpatient medication list Pain: 10/10 sharp rib pain and right wrist pain PO Intake: Tolerating PO diet Voiding: hodges catheter in place The patient complains of a 10/10 pain in her right wrist and left rib pain, although she does not appear to be in acute distress and is eating her lunch calmly. The patient complains of shortness of breath and states that coughing, taking deep breaths and certain movements exacerbate her rib pain. She also complains of wheezing and a non-productive but wet cough. She complains of numbness in her right fingers. A Hodges catheter is in place. The patient states she had abdominal pain earlier this morning but it is now resolved. She feels generally weak and fatigued. The patient denies fevers, chills, sweats, chest pain, palpitations, claudication, nausea, vomiting, abdominal pain, dysuria, hematuria, urinary retention, paralysis, weakness. Additional Comments: See HPI for pertinent positives and negatives. All other systems reviewed and negative. (Cristina Calderon ., BUSHRA-C) Objective Vital Signs Date Time Temp Pulse Resp B/P (MAP) Pulse Ox O2 Delivery O2 Flow Rate FiO2 07/13/17 12:30 36.6 72 20 130/84 (99) 92 Nasal Cannula 2.0 07/13/17 12:00 85 Room Air 07/13/17 11:52 81 16 98 Nasal Cannula 2.0 07/13/17 09:01 86 147/73 (97) 94 Nasal Cannula 2.0 07/13/17 08:00 Nasal Cannula 2.0 07/13/17 07:49 81 16 87 Room Air 07/13/17 07:44 37.3 75 20 108/72 (84) 96 Nasal Cannula 2.0 07/13/17 01:43 98 Nasal Cannula 2.0 07/12/17 23:22 36.9 80 18 125/77 (93) 95 Nasal Cannula 2.0 Humidified Oxygen 07/12/17 20:35 69 16 98 Nasal Cannula 1.0 07/12/17 20:10 98 Nasal Cannula 2.0 07/12/17 20:00 77 24 142/80 (100) 98 12/10/17 16:00 Nasal Cannula 2.0 07/12/17 15:09 36.6 68 20 129/72 (91) 98 2.0 07/12/17 15:06 68 16 96 Nasal Cannula 1.0 (Cristina Calderon ., PA-C) Physical Exam Notes: General appearance: +Obese. Well-developed, well-nourished, no apparent distress Head: Normocephalic, atraumatic Eyes: Normal inspection, PERRL, EOMI ENT: Normal ENT inspection, hearing grossly normal, pharynx normal Neck: Supple, no JVD, trachea midline Respiratory/Chest: +Decreased breath sounds, wheezing. No respiratory distress Cardiovascular: +Irregularly irregular, rate controlled. Systolic murmur. No gallop Abdomen/GI: +Lower abdomen mildly TTP. Normal bowel sounds, soft Extremities/Musculoskeletal: +Trace pitting edema. Right forearm in volar splint. No calf tenderness Neurological/Psych: +Decreased sensation right fingers. Alert, normal mood/ affect, oriented x 3 Skin: +Ecchymoses right inner elbow, right fingers. Normal color, warm/dry, no rash (Cristina Calderon ., PA-C) Laboratory Results Last 24 Hours Test 07/12/17 16:45 07/12/17 19:53 07/13/17 06:31 07/13/17 07:39 Bedside Glucose 105 mg/dl 114 mg/dl White Blood Count 10.50 K/uL Red Blood Count 3.63 M/uL Hemoglobin 9.1 g/dL Hematocrit 29.2 % Mean Corpuscular Volume 80.4 fL Mean Corpuscular Hemoglobin 25.1 pg Mean Corpuscular Hemoglobin Concent 31.2 g/dl Platelet Count 277 K/uL Mean Platelet Volume 9.7 fL Neutrophils (%) (Auto) 85.7 % Lymphocytes (%) (Auto) 5.4 % Monocytes (%) (Auto) 6.6 % Eosinophils (%) (Auto) 1.7 % Basophils (%) (Auto) 0.3 % Neutrophils # (Auto) 9.00 K/uL Lymphocytes # (Auto) 0.57 K/uL Monocytes # (Auto) 0.69 K/uL Eosinophils # (Auto) 0.18 K/uL Basophils # (Auto) 0.03 K/uL RDW Standard Deviation 54.2 fL RDW Coefficient of Variation 18.3 % Immature Granulocyte % (Auto) 0.3 % Immature Granulocyte # (Auto) 0.03 K/uL Sodium Level 125 mmol/L Potassium Level 4.6 mmol/L Chloride Level 94 mmol/L Carbon Dioxide Level 21 mmol/L Anion Gap 10.0 mmol/L Blood Urea Nitrogen 45 mg/dl Creatinine 3.64 mg/dl Est Creatinine Clear Calc Drug Dose 15.5 ml/min Estimated GFR () 13.7 Estimated GFR (Non- 11.8 BUN/Creatinine Ratio 12.3 Random Glucose 81 mg/dl Calcium Level 8.4 mg/dl Osmolality 279 mOsm/kg Uric Acid 6.5 mg/dl Thyroid Stimulating Hormone (TSH) 1.680 uIu/ml Cortisol AM Sample 22.66 mcg/dl Test 07/13/17 07:46 07/13/17 09:55 07/13/17 11:35 Bedside Glucose 88 mg/dl 108 mg/dl Urine Osmolality 357 mOms/kg Urine Random Sodium 5 mEq/L (Cristina Calderon ., PA-C) Diagnostic Results Reviewed the following studies and agree with interpretation as follows: CHEST ONE VIEW PORTABLE CLINICAL HISTORY: 71 years-old Female presenting with left sided hemothorax w/ rib fractures. TECHNIQUE: Portable upright AP view of the chest was obtained. COMPARISON: 07/12/2017. FINDINGS: Atherosclerosis of aortic arch. Cardiac silhouette remains enlarged. Elevation of the left hemidiaphragm with left basilar opacity persists. Small left pleural effusion. No pneumothorax. Right lung and pleural space clear. Mild pulmonary vascular prominence and mild bronchial wall thickening suggested. Reported rib fractures better evaluated on recent CT. Upper abdomen normal. IMPRESSION: 1. Cardiomegaly with pulmonary vascular prominence and bronchial wall cuffing increased from prior, suggesting volume overload. No costa pulmonary edema. 2. Left basilar consolidation or atelectasis with small left pleural effusion, unchanged. 3. Reported multiple bilateral rib fractures better evaluated on prior CT. (Cristina Calderon ., PA-C) Assessment and Plan 71 y/o female with a history a-fib, CAD, [place] s/p stent, HTN, HLD, chronic diastolic CHF, COPD, DM II, CKD stage IV, SHI, anxiety/depression, and Henson' s esophagus who presented following multiple falls and fractures. S/p multiple falls, multiple fractures hemothorax--ongoing -Displaced left rib fractures (ribs 8-9), nondisplaced left rib fracture (rib 10 ), right distal radial fracture, nondisplaced transverse process T10 fracture -Head CT, cervical spine CT, CT abdomen/pelvis, shoulder x-ray no acute disease -Ortho surgery consulted, appreciate recs: Continue volar splint, will likely transition to cast. No surgery for now but may be necessary later. Will sign off now but follow up in 1 week for right wrist. -Thoracic surgery following, appreciate recs: Pain control, aggressive pulmonary toilet, incentive spirometry, check daily CXR. Will drain hemothorax and place Pleurex tomorrow -Continue lidocaine patch, Dilaudid 0.5 mg IV q4h prn pain, Roxicodone prn -Constipated likely secondary to narcotics: Senokot qam and Miralax BID Fevers, possible PNA--fevers resolved -D/C Zosyn -Continue with Levaquin 500 mg PO q48h (renal dosing, CrCl 15). Day #3 of abx -Urine and blood cultures negative Hyponatremia--worsening -Sodium down to 125 on 07/13 despite receiving NSS yesterday -Repeat serum and urine osm 07/13 still low. Urine random sodium 5 Atrial fibrillation--stable, rate controlled -Continue amiodarone 200 mg PO qd -Hold warfarin due to hemothorax HTN, HLD, CAD, h/o [place] s/p stent x 2--stable -Last ELAINE was on 11/17/2016 -Continue Lipitor 40 mg PO qd, Plavix 75 mg PO qd, Lopressor 50 mg PO BID Chronic diastolic CHF--possible mild exacerbation following IVF administration -Home Lasix had been on hold due to acute renal failure -CXR 07/13 shows pulmonary vascular prominence and bronchial wall cuffing increased from prior, suggesting volume overload. No costa pulmonary edema. -Lasix 60 mg IV x 1 now -Resume Lasix 60 mg PO BID tomorrow Acute renal failure on CKD stage IV--improving -Baseline creatine around 2.8-2.9 -Creatinine 3.64 on 07/13, down from 3.87 -Appears volume overloaded today, Lasix as above -Hodges placed -Urology consulted, appreciate res: Maintain catheter 5-7 days, f/u 4 weeks DM II--HgbA1c 9.6 on 07/09 -Continue home Lantus 15 units SC qam and 20 units SC qpm -Insulin sliding scale -Check BSGs q ac and qhs COPD--wheezing, could be secondary to COPD vs recent fluids -Continue Dulera 2 puffs inh BID -DuoNebs -Current smoker Oral candidiasis -Continue nystatin solution 5 mL PO QID. Day #2 DVT prophylaxis -Warfarin and chemical prophylaxis held due to hemothorax -SCDs Code Status -Level III, FULL NO MECH VENTILATION Dispo -From home -PT/OT recommend rehab if can't meet goals (Cristina Calderon ., PA-C) Attending Attestation: Pt seen/examined, chart reviewed, care plan d/w BUSHRA Calderon. I agree w/ the ferreira components of her documentation. Pt w/ worsening cough, wheezing, and dyspnea. Still w/ considerable left-sided rib pain. feels worse than yesterday. hodges successfully placed by urology yesterday. ambulation is quite difficult due to pain and dyspnea. afebrile VSS gen - sitting in chair, audible wheezing neck - JVD present sitting upright at 90 degrees mouth - MMM, thrush tongue heart - irregular, rates < 100 lungs - wheezes b/l, decreased BS b/l bases worse on left, no distress abd - soft, ND, BS+, minimal tenderness RUQ ext - trace edema b/l; right arm in splint; edema just proximal to splint extending to the elbow skin - extensive ecchymoses over right elbow, right hand, left flank/back cr 3.6 Na 125 A/P: 1. acute renal failure in setting of CKD stage 4 - ARF could be due to volume overload; cannot rule out she had some element of obstruction from the urethral stricture 2. acute hypoxic resp failure 2nd to left-sided hemothorax, COPD, and probable acute/chronic diastolic CHF 3. acute/chronic diastolic CHF - stop fluids, IV lasix today 4. urethral stricture - s/p hodges; leave hodges x 7 days 5. hyponatremia - acute/chronic - acutely this may be due to volume overload despite the very low urine Na; chronic hyponatremia - due to chronic lasix use? other? would repeat BMP later today for stability 6. rib fractures x 4 on left - cont pain management 7. left-sided hemothorax - to OR tomorrow w/ Dr. Ortiz for thoracoscopy, nerve block, evacuation of hemothorax, and pleurX catheter placement 8. acute blood loss anemia - 2nd to #7 in setting of chronic coumadin use - H/ H stabilizing; INR has normalized remains complicated/ill updated 07/12/17 Wendy GUERRA MD (Robb Guerra MD)
--- NOTE | 2017-07-13 15:18 | SURGERY PROGRESS NOTE ---
DATE: 07/13/2017 SUBJECTIVE: Ms. Chappell was seen today. I had a long discussion with Dr. Guerra. The patient's pain has not been controlled with parenteral narcotics. There was some discussion about a possible epidural catheter. She also has increasing fluid in her left chest. This 71-year-old is going to run into issues with a pneumonic process given her inability to breathe. One option would be to place a 5 mm scope and drain this fluid out and do an Exparel block in order to control her pain and get rid of this fluid. We will leave a PleurX catheter in at that time. We had a long talk about this and I have elected to proceed with this in the morning. We will discuss this in more detail with her family. SARA
[2017-07-13] MEDS: LEVOFLOXACIN 500 MG TAB PO SCH (15:23)
--- NOTE | 2017-07-13 17:43 | Anesthesiology Progress Note ---
Anesthesia Progress Note Date of Service Jul 13, 2017. Progress Notes Pt is scheduled for L thoracoscopy with drainage of pleural effusion on . Pt has a complicated medical history which includes NSTEMI on 11/17/16 with ELAINE x 2, afib, COPD, peripheral neuropathy, colitis, DM2, CKD, anemia, chronic hyponatremia, obesity, anxiety, and former smoker. The pt sustained falls recently causing a R radius/ulna fx and L rib fractures. The pt remains on her plavix 2/2 ELAINE placements. The pt's labwork, EKG, TTE, and CXR were reviewed. The pt is an acceptable candidate for GA +/- arterial line. The pt was recently given dilaudid, so we will obtain consent from the patient in the morning.
[2017-07-13 19:10] LABS: BUN/CREATININE RATIO 12.8 (10-20); CALCIUM 8.6 mg/dl (8.5-10.1); CREATININE 3.57 mg/dl (0.60-1.20); POTASSIUM 4.5 mmol/L (3.5-5.1)
--- NOTE | 2017-07-13 21:02 | SURGERY PROGRESS NOTE ---
DATE: 07/13/2017 I spoke with Ms. Misti perkins, but she is confused. I explained what we we are going to do. I want to do a thoracoscopy with a 5-mm scope and do an intercostal nerve block intrathoracically and then with liposomal bupivacaine, which will give her 3-4 days of pain relief and also place a PleurX catheter at the same time. I did discuss this with the patient's power of commercial attorney, who is her granddaughter, Sherice Belle ([phone]). She is agreeable after I had a long explanation about the procedure. This should not take very long and I think it would give her pain relief and we would also drain this fluid. We have this scheduled for tomorrow afternoon, on 07/14/2017. SARA
[2017-07-14] VITALS (13 sets, daily range): BP systolic 107–127; BP diastolic 42–77; PULSE 63–83; TEMP 36.6–36.8; O2SAT 91–100; Ht 167.6 cm; Wt 90.8 kg
[2017-07-14] MEDS: ACETAMINOPHEN 500 MG TAB PO SCH ×2 (05:33→14:00)
[2017-07-14 06:55] LABS: HEMATOCRIT 29.5 % (37-47); MEAN CELL VOLUME 80.2 fL (80-100); MEAN CORPUSCULAR HEMOGLOBIN 25.3 pg (25-34); MEAN CORPUSCULAR HGB CONC 31.5 g/dl (32-36); MEAN PLATELET VOLUME 9.7 fL (7.4-10.4); PLATELET COUNT 313 K/uL (130-400); RED BLOOD COUNT 3.68 M/uL (4.2-5.4); WHITE BLOOD COUNT 9.87 K/uL (4.8-10.8)
[2017-07-14] MEDS: ALBUT/IPRATROP 3MG/0.5MG NEB 3 ML VIAL INH SCH ×2 (07:12→11:20)
[2017-07-14 07:28] LABS: BUN/CREATININE RATIO 12.8 (10-20); CALCIUM 8.9 mg/dl (8.5-10.1); CREATININE 3.84 mg/dl (0.60-1.20); POTASSIUM 4.3 mmol/L (3.5-5.1)
[2017-07-14] MEDS: DEXTROSE 50% 50 ML SYR IV PRN ×2 (07:37→13:10)
[2017-07-14] MEDS: INSULIN ASPART 100 UNITS/ML 3 ML PEN SC SCH ×4 (07:40→21:00)
[2017-07-14] MEDS: MOMETASONE/FORMOTEROL (DULERA) INH INH SCH ×2 (07:44→23:23)
[2017-07-14] MEDS: METOPROLOL TARTRATE 50 MG TAB PO SCH ×2 (07:45→21:00)
[2017-07-14] MEDS: SENNA 8.6 MG TAB PO SCH (07:45)
[2017-07-14] MEDS: GABAPENTIN 300 MG CAP PO SCH ×2 (07:47→21:00)
[2017-07-14] MEDS: POLYETHYLENE (MIRALAX) 17 GM PACK PO SCH ×2 (07:47→21:00)
[2017-07-14] MEDS: AMIODARONE 200 MG TAB PO SCH (07:47)
[2017-07-14] MEDS: LIDODERM (LIDOCAINE) PATCH 5% TD SCH (07:49)
[2017-07-14] MEDS: CLOPIDOGREL BISULFATE 75 MG TAB PO SCH (08:00)
[2017-07-14] MEDS: SODIUM BICARBONATE 650 MG TAB PO SCH ×2 (08:00→21:00)
[2017-07-14] MEDS: CEROVITE ADV FORMULA TAB PO SCH (08:00)
[2017-07-14] MEDS: ATORVASTATIN 40 MG TAB PO SCH (08:00)
[2017-07-14] MEDS: NYSTATIN SUSP 500,000 U/5 ML UDC PO SCH ×4 (08:00→21:00)
[2017-07-14] MEDS: FERROUS GLUCONATE 324 MG TAB PO SCH (08:00)
--- NOTE | 2017-07-14 08:51 | DIAGNOSTIC IMAGING REPORT ---
EXAMINATION: RENAL ULTRASOUND CLINICAL HISTORY: acute/chronic renal failure COMPARISON STUDY: None FINDINGS: The right kidney measures 9.9 cm. The left kidney measures 9 cm. There is no evidence of hydronephrosis. There is a 7 mm right renal cortical cyst. There is mild increase in renal cortical echogenicity, consistent with medical renal disease. There is mild renal cortical thinning. There was suboptimal visualization of the left kidney. There is indwelling Mccollum catheter. The bladder was empty at the time of scanning. IMPRESSION : 1. No evidence of hydronephrosis 2. Bilateral renal cortical thinning 3. Slight increase in renal cortical echogenicity, a finding consistent with medical renal disease. Electronically signed by: Elieser Cha M.D. 07/14/2017 8:50 AM Dictated Date/Time: 07/14/2017 8:49 AM
[2017-07-14] MEDS ORDERED: FUROSEMIDE 20 MG TAB PO SCH (09:00)
--- NOTE | 2017-07-14 10:17 | Hospitalist Progress Note ---
Hospitalist Progress Note Date of Service Jul 14, 2017. (Cristina Calderon ., PA-C) Subjective Pt evaluation today including: conversation w/ patient, physical exam, chart review, lab review, review of studies, conversation w/ consultant technology (spoke with Dr. Oliver), review of inpatient medication list Pain: 10/10 left rib pain PO Intake: NPO Voiding: hodges catheter in place Patient again complains of 10/10 left rib pain, although does not appear to be in acute distress. She also complains of ongoing pain in her right wrist and tingling in her right fingers. She does state that her breathing is improved today compared to yesterday and now denies wheezing or coughing. She denies any abdominal pain but still has not had a bowel movement yet. The patient denies fevers, chills, sweats, chest pain, palpitations, claudication, cough, wheezing, shortness of breath, nausea, vomiting, abdominal pain, dysuria, hematuria, urinary retention, paralysis, weakness. Additional Comments: See HPI for pertinent positives and negatives. All other systems reviewed and negative. (Cristina Calderon ., PA-C) Objective Vital Signs Date Time Temp Pulse Resp B/P (MAP) Pulse Ox O2 Delivery O2 Flow Rate FiO2 07/14/17 08:30 96 Nasal Cannula 2.0 07/14/17 07:16 83 16 96 Nasal Cannula 2.0 07/14/17 07:03 36.8 81 20 107/66 (80) 91 Nasal Cannula 2.0 07/14/17 00:00 Nasal Cannula 2.0 07/13/17 23:11 37.5 98 20 128/80 (96) 90 Room Air 07/13/17 20:44 77 126/78 (94) 96 Nasal Cannula 2.0 07/13/17 20:00 Nasal Cannula 2.0 07/13/17 19:56 89 16 98 Nasal Cannula 2.0 07/13/17 16:00 Nasal Cannula 2.0 07/13/17 15:51 36.6 90 20 117/77 (90) 99 Nasal Cannula 2.0 07/13/17 15:47 81 16 95 Nasal Cannula 2.0 07/13/17 12:30 36.6 72 20 130/84 (99) 92 Nasal Cannula 2.0 07/13/17 12:00 85 Room Air 07/13/17 11:52 81 16 98 Nasal Cannula 2.0 (Cristina Calderon ., PA-C) Physical Exam Notes: General appearance: +Obese. Well-developed, well-nourished, no apparent distress Head: Normocephalic, atraumatic Eyes: Normal inspection, PERRL, EOMI ENT: +Dry oral mucosa. Normal ENT inspection, hearing grossly normal, pharynx normal Neck: Supple, no JVD, trachea midline Respiratory/Chest: +Decreased breath sounds. Lungs clear to auscultation, no respiratory distress Cardiovascular: +Irregularly irregular, rate controlled. Systolic murmur. No gallop Abdomen/GI: +Lower abdomen mildly TTP. Normal bowel sounds, soft Extremities/Musculoskeletal: +Trace pitting edema. Right forearm in volar splint. No calf tenderness Neurological/Psych: +Decreased sensation right fingers. Alert, normal mood/ affect, oriented x 3 Skin: +Ecchymoses right inner elbow, right fingers. Normal color, warm/dry, no rash (Cristina Calderon ., PA-C) Laboratory Results Last 24 Hours Test 07/13/17 11:35 07/13/17 16:47 07/13/17 18:25 07/13/17 20:07 Bedside Glucose 108 mg/dl 128 mg/dl 95 mg/dl Sodium Level 125 mmol/L Potassium Level 4.5 mmol/L Chloride Level 93 mmol/L Carbon Dioxide Level 22 mmol/L Anion Gap 10.0 mmol/L Blood Urea Nitrogen 46 mg/dl Creatinine 3.57 mg/dl Est Creatinine Clear Calc Drug Dose 15.8 ml/min Estimated GFR () 14.0 Estimated GFR (Non- 12.1 BUN/Creatinine Ratio 12.8 Random Glucose 100 mg/dl Calcium Level 8.6 mg/dl Test 07/14/17 06:30 07/14/17 07:36 07/14/17 08:21 White Blood Count 9.87 K/uL Red Blood Count 3.68 M/uL Hemoglobin 9.3 g/dL Hematocrit 29.5 % Mean Corpuscular Volume 80.2 fL Mean Corpuscular Hemoglobin 25.3 pg Mean Corpuscular Hemoglobin Concent 31.5 g/dl RDW Standard Deviation 54.3 fL RDW Coefficient of Variation 18.5 % Platelet Count 313 K/uL Mean Platelet Volume 9.7 fL Sodium Level 128 mmol/L Potassium Level 4.3 mmol/L Chloride Level 94 mmol/L Carbon Dioxide Level 24 mmol/L Anion Gap 10.0 mmol/L Blood Urea Nitrogen 49 mg/dl Creatinine 3.84 mg/dl Est Creatinine Clear Calc Drug Dose 15.0 ml/min Estimated GFR () 12.8 Estimated GFR (Non- 11.1 BUN/Creatinine Ratio 12.8 Random Glucose 42 mg/dl Calcium Level 8.9 mg/dl Bedside Glucose 44 mg/dl 153 mg/dl (Cristina Calderon ., PA-C) Diagnostic Results Reviewed the following studies and agree with interpretation as follows: EXAMINATION: RENAL ULTRASOUND CLINICAL HISTORY: acute/chronic renal failure COMPARISON STUDY: None FINDINGS: The right kidney measures 9.9 cm. The left kidney measures 9 cm. There is no evidence of hydronephrosis. There is a 7 mm right renal cortical cyst. There is mild increase in renal cortical echogenicity, consistent with medical renal disease. There is mild renal cortical thinning. There was suboptimal visualization of the left kidney. There is indwelling Hodges catheter. The bladder was empty at the time of scanning. IMPRESSION : 1. No evidence of hydronephrosis 2. Bilateral renal cortical thinning 3. Slight increase in renal cortical echogenicity, a finding consistent with medical renal disease. (Cristina Calderon ., PA-C) Assessment and Plan 71 y/o female with a history a-fib, CAD, CT s/p stent, HTN, HLD, chronic diastolic CHF, COPD, DM II, CKD stage IV, SHI, anxiety/depression, and Henson' s esophagus who presented following multiple falls and fractures. S/p multiple falls, multiple fractures hemothorax--ongoing -Displaced left rib fractures (ribs 8-9), nondisplaced left rib fracture (rib 10 ), right distal radial fracture, nondisplaced transverse process T10 fracture -Head CT, cervical spine CT, CT abdomen/pelvis, shoulder x-ray no acute disease -Ortho surgery consulted, appreciate recs: Continue volar splint, will likely transition to cast. No surgery for now but may be necessary later. Will sign off now but follow up in 1 week for right wrist. -Thoracic surgery following, appreciate recs: Pain control, aggressive pulmonary toilet, incentive spirometry, check daily CXR. Will drain hemothorax , do nerve block and place PleurX today -Continue lidocaine patch, Dilaudid 0.5 mg IV q4h prn pain, Roxicodone prn -Constipated likely secondary to narcotics: Senokot qam and Miralax BID. Still no BM, may need enema after procedure today -Repeat CXR pending Fevers, possible PNA--fevers resolved -D/C Zosyn -Continue with Levaquin 500 mg PO q48h (renal dosing, CrCl 15). Day #4 of abx -Urine and blood cultures negative Hyponatremia--improving -Sodium up to 128 on 12 -Repeat serum and urine osm 12/ still low. Urine random sodium 5 Acute renal failure on CKD stage IV--ongoing -Baseline creatine around 2.8-2.9 -Creatinine 3.84 on 07/14, up from 3.57 -Nephrology consulted, appreciate recs: Spoke briefly to Dr. Oliver. Despite JVD, otherwise appears dehydrated. Hold off on further Lasix for now. Will await further recs. -Hodges placed -Urology consulted, appreciate res: Maintain catheter 5-7 days, f/u 4 weeks Atrial fibrillation--stable, rate controlled -Continue amiodarone 200 mg PO qd -Hold warfarin due to hemothorax HTN, HLD, CAD, h/o CT s/p stent x 2--stable -Last ELAINE was on 11/17/2016 -Continue Lipitor 40 mg PO qd, Plavix 75 mg PO qd, Lopressor 50 mg PO BID Chronic diastolic CHF -CXR / shows pulmonary vascular prominence and bronchial wall cuffing increased from prior, suggesting volume overload. No costa pulmonary edema. -Lasix 60 mg IV x 1 on 07/13 -Hold Lasix per nephro recs DM II--HgbA1c 9.6 on 12 -Continue home Lantus 15 units SC qam and 20 units SC qpm -Insulin sliding scale -Check BSGs q ac and qhs COPD--wheezing resolved, could be secondary to COPD vs recent fluids -Continue Dulera 2 puffs inh BID -DuoNebs -Current smoker Oral candidiasis -Continue nystatin solution 5 mL PO QID. Day #3 DVT prophylaxis -Warfarin and chemical prophylaxis held due to hemothorax -SCDs Code Status -Level III, FULL NO MECH VENTILATION Dispo -From home -PT/OT recommend rehab if can't meet goals (Cristina Calderon ., PA-C) Attending Attestation: Pt seen/examined, chart reviewed, care plan d/w BUSHRA Calderon. I agree w/ the ferreira components of her documentation. Saw patient prior to going to the OR. Still w/ considerable left-sided pleuritic pain. No dyspnea as long as she is at rest. No bowel movement. No chest pain. afebrile VSS gen - NAD, a/o x 3 neck - JVD to the jaw mouth - MM dry, thrush improved heart - irregular,regular rate, no murmur lungs - minimal wheezes b/l, decreased BS b/l bases worse on left, no distress abd - soft, ND, BS+, NT ext - right arm in splint; edema just proximal to splint extending to the elbow skin - extensive ecchymoses over right elbow, right hand, left flank/back - unchanged cr 3.8 Na 128 A/P: 1. acute renal failure in setting of CKD stage 4 - yesterday she appeared clinically/radiographically volume overloaded. Lasix given yesterday PM; creatinine modestly worse today. Still with JVD on examination. Unclear volume status. Nephrology consult requested; renal u/s. Continue hodges. 2. acute hypoxic resp failure 2nd to left-sided hemothorax, COPD, and probable acute/chronic diastolic CHF - ongoing. 3. acute/chronic diastolic CHF - see above. 4. urethral stricture - s/p hodges; leave hodges x 7 days per urology. 5. hyponatremia - acute/chronic - modestly improved today. Daily BMP. 6. rib fractures x 4 on left - cont pain management; to OR today; will receive nerve block by Dr. Ortiz. 7. left-sided hemothorax - to OR today w/ Dr. Ortiz for thoracoscopy, nerve block, evacuation of hemothorax, and pleurX catheter placement 8. acute blood loss anemia - 2nd to #7 in setting of chronic coumadin use - H/ H stable; coumadin has been held since admission. 9. h/o CAD - no ischemic symptoms at this time. 10. PAF - coumadin on hold, HRs wnl/controlled. daughter updated at bedside grand-daughter updated by phone 07/13 updated by phone 07/12 prior to her procedure today I spoke with anesthesia and updated them on pt's current issues and pulmonary status I recommended she go to telemetry post-operative given her h/o PAF, CAD, etc. Wendy GUERRA MD (Robb Guerra MD)
--- NOTE | 2017-07-14 10:18 | Nephrology Consultation ---
Nephrology Consultation Date & Providers Date of Consultation: Jul 14, 2017. Primary Care Provider: Sanchez Barroso M.D. Referring Provider: Reason for Consultation Acute on CKD, hyponatremia History of Present Illness Mrs. Chappell is a 71 year old white female who is seen at the request of Dr. Guerra for evaluation of acute on CKD and hyponatremia. Medical records in the EMR were reviewed and are summarized as follows: Mrs. Chappell has stage IV CKD w/ baseline creatinine 2.8. Her renal impairment is on the basis of diabetic nephropathy. Her medical history is also significant for AODM, HTN, COPD, anemia, ASCVD s/p NSTEMI 11/17 and chronic atrial fibrillation on Warfarin therapy. Mrs. Chappell suffered a mechanical fall at home 07/09/17. She hit her night stand and suffered displace fractures of three of her L ribs. Upon admission to the hospital she was found to have a small L hemothorax and possible LLL pneumonia. She has required narcotic analgesia for pain control which has been complicated by constipation and nausea. Since admission Mrs. Chappell's creatinine has risen from 2.8 to 3.9 and she has developed progressive hyponatremia. Serum sodium had dropped to 125. CXR has shown peribronchial congestion suggestive of volume overload but no overt pulmonary edema. Patient has chronic JVD due to her pulmonary disease. She has been maintained on diuretic therapy. Urine Na is < 10 and urinalysis shows a high specific gravity. Mrs. Chappell is scheduled for a nerve block tomorrow to alleviate her rib pain and allow discontinuation of narcotic therapy. Past Medical/Surgical History Medical: # Stage IV CKD. Baseline creatinine 2.4 - 2.8 # AODM w/ retinopathy # HTN # COPD - quit smoking 11/17 # Chronic back pain d/t arthritis - required steroid injections in the past # Hyperlipidemia # PAD # ASCVD s/p NSTEMI 11/17 - cardiac cath w/ [employer] & stent x 2 of circumflex artery # Chronic atrial fibrillation on Warfarin therapy # Diastolic CHF - on Furosemide 60 mg po BID as outpatient. # Iron deficiency anemia - on oral iron as outpatient Allergies Coded Allergies: No Known Allergies (Verified , 07/09/17) Inpatient Medications Current Inpatient Medications Medications (Trade) Dose Ordered Sig/Dajuan Route Start Time Stop Time Status Last Admin Dose Admin Al Hydrox/Mg Hydrox/Simethicone (Maalox Max Susp) 15 ml Q4H PRN PO 07/09/17 11:00 08/08/17 10:59 Magnesium Hydroxide (Milk Of Magnesia Susp) 30 ml Q12H PRN PO 07/09/17 11:00 08/08/17 10:59 Zolpidem Tartrate (Ambien Tab) 5 mg HSZ PRN PO 07/09/17 11:00 08/08/17 10:59 Ondansetron HCl (Zofran Inj) 4 mg Q6H PRN IV 07/09/17 11:00 08/08/17 10:59 07/13/17 09:12 4 MG Lidocaine (Lidoderm Patch 5%) 1 patch QAM TD 07/10/17 09:00 08/09/17 08:59 07/14/17 07:49 1 PATCH Miscellaneous (Remove Lidoderm Patch) 1 ea DAILY@21 N/A 07/09/17 21:00 08/08/17 20:59 07/13/17 20:39 1 EA Amiodarone HCl (Cordarone Tab) 200 mg DAILY PO 07/10/17 09:00 08/09/17 08:59 07/14/17 07:47 200 MG Atorvastatin Calcium (Lipitor Tab) 40 mg DAILY PO 07/10/17 09:00 08/09/17 08:59 07/13/17 09:29 40 MG Clopidogrel Bisulfate (plAVix TAB) 75 mg DAILY PO 07/10/17 09:00 08/09/17 08:59 07/13/17 09:30 75 MG Gabapentin (Neurontin Cap) 300 mg BID PO 07/09/17 21:00 08/08/17 20:59 07/14/17 07:47 300 MG Insulin Glargine (Lantus Solostar Pen) 15 units QAM SC 07/10/17 09:00 08/09/17 08:59 07/13/17 09:39 15 UNITS Insulin Glargine (Lantus Solostar Pen) 20 units QPM SC 07/09/17 21:00 08/08/17 20:59 07/13/17 20:42 20 UNITS Metoprolol Tartrate (Lopressor Tab) 50 mg BID PO 07/09/17 21:00 08/08/17 20:59 07/14/17 07:45 50 MG Nitroglycerin (Nitrostat Tab) 0.4 mg UD PRN UT 07/09/17 11:00 08/08/17 10:59 Sodium Bicarbonate (Sodium Bicarbonate Tab) 650 mg BID PO 07/09/17 21:00 08/08/17 20:59 07/13/17 20:37 650 MG Multivitamins/ Minerals (Multivitamin W/ Minerals Tab) 1 tab DAILY PO 07/10/17 09:00 08/09/17 08:59 07/13/17 09:30 1 TAB Insulin Aspart (novoLOG ASPART) SLIDING SCALE G... ACHS SC 07/09/17 11:00 08/08/17 10:59 07/12/17 18:20 1 UNITS Glucose (Glucose 40% Gel) 15-30 GRAMS 15 GRAMS... UD PRN PO 07/09/17 12:00 08/08/17 11:59 Glucose (Glucose Chew Tab) 4-8 Tablets 4 Tabl... UD PRN PO 07/09/17 12:00 08/08/17 11:59 Dextrose (Dextrose 50% 50ML Syringe) 25-50ML OF 50% DW IV FOR... UD PRN IV 07/09/17 12:00 08/08/17 11:59 07/14/17 07:37 50 ML Glucagon (Glucagon Inj) 1 mg UD PRN SQ 07/09/17 12:00 08/08/17 11:59 Promethazine HCl 25 mg/Sodium Chloride 51 ml @ 204 mls/hr Q6H PRN IV 07/10/17 13:00 08/09/17 12:59 07/10/17 21:41 204 MLS/HR Acetaminophen (Tylenol Tab) 1,000 mg Q8 PO 07/10/17 22:00 08/09/17 21:59 07/13/17 15:23 1,000 MG Oxycodone HCl (Roxicodone Immediate Rel Tab) 10 mg Q6 PRN PO 07/10/17 16:45 07/24/17 16:44 07/13/17 15:30 10 MG Mometasone Furoate/ Formoterol Fumar (Dulera 100-5 Mcg/Act) 2 puffs BID INH 07/11/17 09:00 1/8/18 08:59 07/14/17 07:44 2 PUFFS Ferrous Gluconate (Ferrous Gluconate Tab) 324 mg QAM PO 07/11/17 14:00 08/10/17 13:59 07/13/17 09:29 324 MG Polyethylene (Miralax Powder Packet) 17 gm BID PO 07/12/17 12:45 08/08/17 12:44 07/14/17 07:47 17 GM Senna (Senokot Tab) 17.2 mg QAM PO 07/12/17 12:45 08/11/17 12:44 07/14/17 07:45 17.2 MG Bisacodyl (Dulcolax Supp) 10 mg Q12H PRN OK 07/12/17 11:00 08/11/17 10:59 Nystatin (Mycostatin Susp) 5 ml QID PO 07/12/17 12:45 07/22/17 12:44 07/13/17 20:34 5 ML Albuterol/ Ipratropium (Duoneb) 3 ml QIDR INH 07/12/17 16:00 08/11/17 15:59 07/14/17 07:12 3 ML Hydromorphone HCl (Dilaudid Inj) 0.5 mg Q4H PRN IV 07/12/17 11:00 07/26/17 10:59 07/13/17 17:04 0.5 MG Meclizine HCl (Antivert Tab) 12.5 mg Q6H PRN PO 07/13/17 11:00 08/12/17 10:59 Furosemide (Lasix Tab) 60 mg BID17 PO 07/14/17 09:00 08/13/17 08:59 07/14/17 07:46 60 MG Levofloxacin (Levaquin Tab) 500 mg Q2D@1100 PO 07/13/17 14:45 07/20/17 14:44 07/13/17 15:23 500 MG Family History Diabetes mellitus FH: gallbladder disease FH: heart disease FH: lung disease FHx: cancer Hypertension Negative for CKD / ESRD Social History Smoking Status: Former Smoker Drug Use: none Marital Status: 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 Pertinent positives are noted above. All other systems are negative. Physical Exam Date Time Temp Pulse Resp B/P (MAP) Pulse Ox O2 Delivery O2 Flow Rate FiO2 07/14/17 08:30 96 Nasal Cannula 2.0 07/14/17 07:16 83 16 96 Nasal Cannula 2.0 07/14/17 07:03 36.8 81 20 107/66 (80) 91 Nasal Cannula 2.0 07/14/17 00:00 Nasal Cannula 2.0 07/13/17 23:11 37.5 98 20 128/80 (96) 90 Room Air 07/13/17 20:44 77 126/78 (94) 96 Nasal Cannula 2.0 07/13/17 20:00 Nasal Cannula 2.0 07/13/17 19:56 89 16 98 Nasal Cannula 2.0 07/13/17 16:00 Nasal Cannula 2.0 07/13/17 15:51 36.6 90 20 117/77 (90) 99 Nasal Cannula 2.0 07/13/17 15:47 81 16 95 Nasal Cannula 2.0 07/13/17 12:30 36.6 72 20 130/84 (99) 92 Nasal Cannula 2.0 07/13/17 12:00 85 Room Air 07/13/17 11:52 81 16 98 Nasal Cannula 2.0 General Appearance: + mild distress (due to rib pain) Head: normocephalic, atraumatic Eyes: PERRL, EOMI ENT: + pertinent finding (dry mucous membranes) Neck: + JVD Respiratory/Chest: lungs clear Cardiovascular: + tachycardia Abdomen/GI: non tender (hypoactive bowel sounds), soft Extremities/Musculoskelatal: no calf tenderness, no pedal edema Neurologic/Psych: alert, oriented x 3 Skin: warm/dry (poor turgor involving the arms and legs) Lymphatic: no adenopathy Laboratory Results Last 24 Hours Test 07/13/17 11:35 07/13/17 16:47 07/13/17 18:25 07/13/17 20:07 Bedside Glucose 108 mg/dl 128 mg/dl 95 mg/dl Sodium Level 125 mmol/L Potassium Level 4.5 mmol/L Chloride Level 93 mmol/L Carbon Dioxide Level 22 mmol/L Anion Gap 10.0 mmol/L Blood Urea Nitrogen 46 mg/dl Creatinine 3.57 mg/dl Est Creatinine Clear Calc Drug Dose 15.8 ml/min Estimated GFR () 14.0 Estimated GFR (Non- 12.1 BUN/Creatinine Ratio 12.8 Random Glucose 100 mg/dl Calcium Level 8.6 mg/dl Test 07/14/17 06:30 07/14/17 07:36 07/14/17 08:21 White Blood Count 9.87 K/uL Red Blood Count 3.68 M/uL Hemoglobin 9.3 g/dL Hematocrit 29.5 % Mean Corpuscular Volume 80.2 fL Mean Corpuscular Hemoglobin 25.3 pg Mean Corpuscular Hemoglobin Concent 31.5 g/dl RDW Standard Deviation 54.3 fL RDW Coefficient of Variation 18.5 % Platelet Count 313 K/uL Mean Platelet Volume 9.7 fL Sodium Level 128 mmol/L Potassium Level 4.3 mmol/L Chloride Level 94 mmol/L Carbon Dioxide Level 24 mmol/L Anion Gap 10.0 mmol/L Blood Urea Nitrogen 49 mg/dl Creatinine 3.84 mg/dl Est Creatinine Clear Calc Drug Dose 15.0 ml/min Estimated GFR () 12.8 Estimated GFR (Non- 11.1 BUN/Creatinine Ratio 12.8 Random Glucose 42 mg/dl Calcium Level 8.9 mg/dl Bedside Glucose 44 mg/dl 153 mg/dl Impression (1) Fall in home (2) Fracture of right ulnar styloid (3) 3 ribs fx from fell, 2 recent fells in 2 days, shoulder pain (4) ARF (acute renal failure) (5) Chronic kidney disease, stage 4 (severe) (6) Hyponatremia (7) Anemia (8) Hypertension (9) Diabetes (10) COPD (chronic obstructive pulmonary disease) (11) Narcotic-induced nausea and vomiting Mrs. Chappell was admitted following a mechanical fall. She suffered three rib fractures. Mrs. Chappell has developed narcotic associated nausea. She is now clinically dehydrated. Creatinine has risen from 2.8 to 3.8 and patient has mild hyponatremia. Urinalysis shows high specific gravity and urine sodium is low c/w intravascular volume contraction. Renal US revealed 9 cm kidneys w/ cortical thinning. There was no obstruction. JVD is likely a manifestation of pulmonary disease. Recommendations ACUTE KIDNEY INJURY: -- Clinically suspect volume contraction -- Hold Furosemide -- Patient is breathing comfortably on O2 at 2 L / min NC. 07/13 CXR film reviewed this am - no overt CHF. Will provide 1 L 0.9 NS -- Monitor serial PRP CHRONIC KIDNEY DISEASE: -- Baseline creatinine has been 2.8 -- Renal US report reviewed today: 9 cm kidneys w/ cortical thinning. No stone /mass/obstruction HYPONATREMIA: -- Clinical exam, low urine sodium, high urine osmolality are all c/w intravascular volume contraction -- Pain and narcotic use may be contributing to high ADH ANEMIA: -- Stable. If Hgb trends downward will consider checking iron stores and providing IV iron therapy RIB FRACTURES: -- Scheduled for nerve block tomorrow by Dr. Ortiz
[2017-07-14] MEDS: INSULIN GLARGINE SOLOSTAR 100 UNITS/ML 3 ML PEN SC SCH ×2 (10:56→21:00)
[2017-07-14] MEDS ORDERED: SODIUM CHLORIDE 0.9% 1000ML 1,000 ML IV SCH (11:30)
[2017-07-14] MEDS ORDERED: ALBUT/IPRATROP 3MG/0.5MG NEB 3 ML VIAL INH PRN (12:00)
[2017-07-14] MEDS ORDERED: LIDOCAINE HCL 2% 2 ML VIAL (20MG/ML) ONE (12:06)
[2017-07-14] MEDS ORDERED: NEOSTIGMINE METHYLSULFATE 5 MG/5 ML SYR ONE ×2 (12:06→15:03)
[2017-07-14] MEDS ORDERED: GLYCOPYRROLATE INJ 0.2 MG/ML VIAL ONE ×2 (12:06→15:03)
[2017-07-14] MEDS ORDERED: ROCURONIUM BROMIDE 10 MG/ML 5 ML VIAL IV ONE (12:06)
[2017-07-14] MEDS ORDERED: PROPOFOL IV EMULSION 10 MG/ML 20 ML VIAL IV ONE (12:06)
[2017-07-14] MEDS ORDERED: ONDANSETRON INJ 2 MG/ML 2 ML VIAL ONE ×2 (12:06→12:09)
[2017-07-14] MEDS ORDERED: DEXAMETHASONE SOD INJ 4 MG/ML VIAL ONE (12:06)
[2017-07-14] MEDS ORDERED: MIDAZOLAM HCL 1 MG/ML 2ML VIAL ONE (12:06)
[2017-07-14] MEDS ORDERED: FENTANYL CITRATE INJ 50 MCG/1 ML 2 ML VIAL ONE ×2 (12:07→21:40)
[2017-07-14] MEDS: HYDROmorphone INJ 0.5 MG/0.5 ML SYR IV PRN (12:11)
[2017-07-14] MEDS ORDERED: SODIUM CHLORIDE 0.9% PF 50 ML VIAL ONE (12:59)
[2017-07-14] MEDS ORDERED: BUPIVACAINE LIPOSOME 1/3% 266 MG/20 ML VIAL INFIL ONE (13:00)
--- NOTE | 2017-07-14 13:32 | History & Physical Bridge Note ---
H&P Re-Evaluation Bridge Note: I have examined the patient, reviewed the History & Physical and in the interval since the performance of the History & Physical I have noted the following changes of clinical significance: No changes noted
[2017-07-14] MEDS ORDERED: CEFAZOLIN SOD 1 GM VIAL ONE (14:26)
[2017-07-14] MEDS ORDERED: PHENYLEPHRINE 100MCG/ML 5ML SYR ONE (14:33)
[2017-07-14] MEDS ORDERED: FENTANYL CITRATE INJ 50 MCG/1 ML 2 ML VIAL IV PRN (14:45)
[2017-07-14] MEDS ORDERED: ATROPINE SULFATE 0.1 MG/ML 5ML SYR IV PRN (14:45)
[2017-07-14] MEDS ORDERED: EpHEDrine SULFATE INJ 50 MG/ML AMP IV PRN (14:45)
[2017-07-14] MEDS ORDERED: MoRPHine SULFATE 2 MG/ML CARP IV PRN ×2 (15:00→15:15)
[2017-07-14] MEDS: SODIUM CHLORIDE 0.9% 1000ML 1,000 ML IV SCH (15:15)
--- NOTE | 2017-07-14 15:23 | OPERATIVE REPORT ---
DATE OF OPERATION: 07/14/2017 PREOPERATIVE DIAGNOSIS: Left hemothorax. PROCEDURE: 1. Left thoracoscopy with drainage of hemothorax. 2. Insertion of PleurX catheter. 3. Intrathoracic intercostal block using liposomal bupivacaine. SURGEON: Dr. Ortiz. EXCAVATION LABORER: Van Bourgeois PA-C (Mr. Bourgeois was at the table handling the camera and as a pharmacy affairs assistant throughout the case and closed the incisions with hand. ANESTHESIA: General anesthesia with single lumen intubation. INDICATION FOR PROCEDURE AND FINDINGS: This is a very interesting 71-year-old female who is rather frail. She has fallen twice, broke her right wrist and then came in with 2 rib fractures on the left with a hemothorax. She also had intractable pain. After much discussion with the patient's granddaughter who is a advanced nursing professor at [employer] and is a power of commercial attorney that agreed that a thoracoscopy with drainage of this pleural fluid as well as a block with the liposomal bupivacaine would be helpful. On 07/14/2017, the patient underwent an uncomplicated left thoracoscopy. She had no adhesions. We had about 700 mL of old blood in the chest. There was no clot. We identified the 2 rib fractures and the blocks from the 2nd to the 11th rib. She tolerated it well. DESCRIPTION OF PROCEDURE: The patient was brought to the operating room and placed in supine position. General anesthesia induced and endotracheal intubation was performed with single lumen tube. The patient was placed in right lateral decubitus position and the left chest prepped and draped in usual sterile fashion. Two 5 mm ports were made. One at about the fifth interspace and one in about the seventh interspace anterior mid axillary line. CO2 was insufflated to the first port and then a 5 mm camera was placed and it could be seen there were no adhesions, there was some old dark blood, which was nonclotting. Another port was placed at about 10 cm anterior and a bit more posterior to this anterior port. This was done under thoracoscopic guidance. After this 5 mm port had been placed, a suction was placed and 700 mL of old blood was drained out. Fractures were identified down in the inferior aspect laterally. A 266 mg of Exparel was mixed with 40 mL of saline for 60 mL total of solution injected from the 2nd to the 11th rib for intercostal block. This filled the interspaces nicely. The camera was then switched to the superior port and the inferior port was used as an entrance way for the PleurX catheter. A long needle was placed through the interspace about 6 cm away more posterior from the incision site inferiorly and then a guidewire was inserted through the needle and needle removed. The introducer sheath was slid over the guidewire and inner cannula and guidewire removed and PleurX catheter placed through the peel-away sheath which was removed. This was sutured in place with 3-0 silk suture. The camera was then removed and 4-0 Monocryl was used to close this 5 mm port. I attest to the content of the Intraoperative Record and any orders documented therein. Any exceptions are noted below. MTDD
--- NOTE | 2017-07-14 15:48 | DIAGNOSTIC IMAGING REPORT ---
CHEST ONE VIEW PORTABLE HISTORY: 71 years-old Female effusion acute bilateral rib fractures with left-sided pleural effusion COMPARISON: Chest radiograph 07/13/2017, CT chest 07/09/2017 TECHNIQUE: Portable AP view of the chest FINDINGS: Endotracheal tube has been placed overlying the midline, 2.7 cm superior to the brandy. Left-sided chest tube is present with distal tip terminating adjacent to the left lung apex. Small left pleural effusion with left basilar consolidation. No definite pneumothorax. Hypoinflation with bronchovascular crowding. Right lung is generally clear. Previously reported left-sided rib fractures are better seen on comparison CT IMPRESSION: 1. Endotracheal tube overlies the midline, 2.7 cm superior to the brandy. 2. Left-sided chest tube terminates at the left lung apex. 3. Persistent small left pleural effusion with left basilar consolidation suggesting atelectasis The above report was generated using voice recognition software. It may contain grammatical, syntax or spelling errors. Electronically signed by: Parker Velásquez M.D. 07/14/2017 3:46 PM Dictated Date/Time: 07/14/2017 3:44 PM
[2017-07-14] MEDS: ACETAMINOPHEN IV 1,000 MG in EMPTY BAG 0 ML IV SCH (16:00)
--- NOTE | 2017-07-14 16:01 | Anesthesiology Progress Note ---
Anesthesia Post Op Note Date & Time Jul 14, 2017 at 15:53 Vital Signs Pain Intensity: 0 Vital Signs Past 12 Hours Date Time Temp Pulse Resp B/P (MAP) Pulse Ox O2 Delivery O2 Flow Rate FiO2 07/14/17 15:31 50 07/14/17 11:22 81 16 99 Nasal Cannula 2.0 07/14/17 08:30 96 Nasal Cannula 2.0 07/14/17 07:16 83 16 96 Nasal Cannula 2.0 07/14/17 07:03 36.8 81 20 107/66 (80) 91 Nasal Cannula 2.0 Notes Airway Patency, RR, SpO2: see Notes At the end of the case the patient was fully reversed and despite being given only a total of 50 mcg of fentanyl and 2 mg of versed at least an hour earlier she was not able to be extubated. She was taken to the PACU on a ventilator and failed a wean. We were not able to test the NIF but her tidal volumes were only 70 - 80. This was discussed with Dr. Ortiz and with Mr. Piyush Shin of the ICU and she was transferred there to be ventilated overnight.
[2017-07-14 18:27] LABS: ISTAT ARTERIAL BLOOD GAS HCO3 22 meq/L (19-24); ISTAT ARTERIAL BLOOD GAS PCO2 45 mmHg (35-46); ISTAT ARTERIAL BLOOD GAS PO2 105 mmHg (80-95); ISTAT CARBON DIOXIDE 24 mEq/l (24-31); ISTAT DELIVERY SYSTEM Ventilator; ISTAT FIO2 60 %; ISTAT PEEP 5; ISTAT RATE 16; ISTAT SITE Art Line; VE 8.5; Vt 450
--- NOTE | 2017-07-14 18:28 | Critical Care Consultation ---
Critical Care Consultation Date of Consultation: Jul 14, 2017. Attending Physician: Robb Guerra MD Reason for Consultation: Acute respiratory failure. History of Present Illness This is a 72-year-old female with history of coronary artery disease status post stenting in November of this year, history of hyperlipidemia, hypertension, chronic kidney insufficiency, osteoporosis, presented to the hospital after a fall sustaining left-sided pleural effusion treated with pleurX catheter. The patient postop was attempted to be extubated however the patient did not wake up enough to warrant removing the tube. The patient was transferred to the ICU for further management. The review of systems was not obtainable. The patient was opening her eyes but she was tachypneic. ABG was done at that time which revealed mixed metabolic and respiratory acidosis. The patient was kept on the ventilator that time. Past Medical/Surgical History Coronary artery disease status post stenting in November 2016. History of hyperlipidemia hypertension. History of COPD noted on the on the CAT scan after I review the personally. History of osteoporosis, rib fracture on the left with hemothorax, thoracoscopy and tunneled pleural catheter, history of osteoporosis. Family History Diabetes mellitus FH: gallbladder disease FH: heart disease FH: lung disease FHx: cancer Hypertension Noncontributory. Social History Smoking Status: Former Smoker Drug Use: none Marital Status: Housing Status: lives with significant other Occupation Status: retired Allergies Coded Allergies: No Known Allergies (Verified , 07/09/17) Home Medications Scheduled Amiodarone HCl (Amiodarone HCl), 200 MG PO DAILY Atorvastatin (Lipitor), 40 MG PO DAILY Clopidogrel Bisulfate (Plavix), 1 TAB PO DAILY Furosemide (Lasix), 3 TAB PO BID Gabapentin (Neurontin), 300 MG PO BID Insulin Aspart (Novolog Penfill), 10 UNITS SC SUPPER Insulin Glargine (Lantus Solostar), 15 UNITS SC QAM Insulin Glargine (Lantus Solostar), 20 UNITS SC QPM Metoprolol Tartrate (Lopressor) (Lopressor), 1 TAB PO BID Mometasone Furoate-Formoterol (Dulera 100/5 Mcg), 2 PUFFS INH BID Multiple Vitamins W/ Iron (Daily Vitamin Formula+Ir), 1 TAB PO DAILY Nitroglycerin (Nitrostat), 0.4 MG UT PRN Omeprazole (Prilosec), 20 MG PO BID Potassium Ext Rel (Klor-Con), 10 MEQ PO DAILY Sodium Bicarbonate (Sodium Bicarbonate), 1 TAB PO BID Warfarin Sod (Jantoven), 5 MG PO DAILY Scheduled PRN Acetaminophen (Tylenol), 500 MG PO DAILY PRN for Pain Alprazolam (Xanax), 0.25 MG PO HS PRN for Anxiety/Agitation Tramadol (Ultram), 1-2 TAB PO Q4H PRN for Pain Current Inpatient Medications Current Inpatient Medications Medications (Trade) Dose Ordered Sig/Dajuan Route Start Time Stop Time Status Last Admin Dose Admin Al Hydrox/Mg Hydrox/Simethicone (Maalox Max Susp) 15 ml Q4H PRN PO 07/09/17 11:00 08/08/17 10:59 Magnesium Hydroxide (Milk Of Magnesia Susp) 30 ml Q12H PRN PO 07/09/17 11:00 08/08/17 10:59 Zolpidem Tartrate (Ambien Tab) 5 mg HSZ PRN PO 07/09/17 11:00 08/08/17 10:59 Ondansetron HCl (Zofran Inj) 4 mg Q6H PRN IV 07/09/17 11:00 08/08/17 10:59 07/13/17 09:12 4 MG Lidocaine (Lidoderm Patch 5%) 1 patch QAM TD 07/10/17 09:00 08/09/17 08:59 07/14/17 07:49 1 PATCH Miscellaneous (Remove Lidoderm Patch) 1 ea DAILY@21 N/A 07/09/17 21:00 08/08/17 20:59 07/13/17 20:39 1 EA Amiodarone HCl (Cordarone Tab) 200 mg DAILY PO 07/10/17 09:00 08/09/17 08:59 07/14/17 07:47 200 MG Atorvastatin Calcium (Lipitor Tab) 40 mg DAILY PO 07/10/17 09:00 08/09/17 08:59 07/13/17 09:29 40 MG Clopidogrel Bisulfate (plAVix TAB) 75 mg DAILY PO 07/10/17 09:00 08/09/17 08:59 07/13/17 09:30 75 MG Gabapentin (Neurontin Cap) 300 mg BID PO 07/09/17 21:00 08/08/17 20:59 07/14/17 07:47 300 MG Insulin Glargine (Lantus Solostar Pen) 15 units QAM SC 07/10/17 09:00 08/09/17 08:59 07/13/17 09:39 15 UNITS Insulin Glargine (Lantus Solostar Pen) 20 units QPM SC 07/09/17 21:00 08/08/17 20:59 07/13/17 20:42 20 UNITS Metoprolol Tartrate (Lopressor Tab) 50 mg BID PO 07/09/17 21:00 08/08/17 20:59 07/14/17 07:45 50 MG Nitroglycerin (Nitrostat Tab) 0.4 mg UD PRN UT 07/09/17 11:00 08/08/17 10:59 Sodium Bicarbonate (Sodium Bicarbonate Tab) 650 mg BID PO 07/09/17 21:00 08/08/17 20:59 07/13/17 20:37 650 MG Multivitamins/ Minerals (Multivitamin W/ Minerals Tab) 1 tab DAILY PO 07/10/17 09:00 08/09/17 08:59 07/13/17 09:30 1 TAB Insulin Aspart (novoLOG ASPART) SLIDING SCALE G... ACHS SC 07/09/17 11:00 08/08/17 10:59 07/12/17 18:20 1 UNITS Glucose (Glucose 40% Gel) 15-30 GRAMS 15 GRAMS... UD PRN PO 07/09/17 12:00 08/08/17 11:59 Glucose (Glucose Chew Tab) 4-8 Tablets 4 Tabl... UD PRN PO 07/09/17 12:00 08/08/17 11:59 Dextrose (Dextrose 50% 50ML Syringe) 25-50ML OF 50% DW IV FOR... UD PRN IV 07/09/17 12:00 08/08/17 11:59 07/14/17 13:10 25 ML Glucagon (Glucagon Inj) 1 mg UD PRN SQ 07/09/17 12:00 08/08/17 11:59 Promethazine HCl 25 mg/Sodium Chloride 51 ml @ 204 mls/hr Q6H PRN IV 07/10/17 13:00 08/09/17 12:59 07/10/17 21:41 204 MLS/HR Mometasone Furoate/ Formoterol Fumar (Dulera 100-5 Mcg/Act) 2 puffs BID INH 07/11/17 09:00 08/10/17 08:59 07/14/17 07:44 2 PUFFS Ferrous Gluconate (Ferrous Gluconate Tab) 324 mg QAM PO 07/11/17 14:00 08/10/17 13:59 07/13/17 09:29 324 MG Polyethylene (Miralax Powder Packet) 17 gm BID PO 07/12/17 12:45 08/08/17 12:44 07/14/17 07:47 17 GM Senna (Senokot Tab) 17.2 mg QAM PO 07/12/17 12:45 08/11/17 12:44 07/14/17 07:45 17.2 MG Bisacodyl (Dulcolax Supp) 10 mg Q12H PRN MI 07/12/17 11:00 08/11/17 10:59 Nystatin (Mycostatin Susp) 5 ml QID PO 07/12/17 12:45 07/22/17 12:44 07/13/17 20:34 5 ML Meclizine HCl (Antivert Tab) 12.5 mg Q6H PRN PO 07/13/17 11:00 08/12/17 10:59 Levofloxacin (Levaquin Tab) 500 mg Q2D@1100 PO 07/13/17 14:45 07/20/17 14:44 07/13/17 15:23 500 MG Albuterol/ Ipratropium (Duoneb) 3 ml QIDR PRN INH 07/14/17 12:00 08/13/17 11:59 Fentanyl Citrate (Fentanyl Inj) 25 mcg Q5M PRN IV 07/14/17 14:45 07/14/17 19:45 Ephedrine Sulfate (EpHEDrine SULFATE INJ) 5 mg Q5M PRN IV 07/14/17 14:45 07/14/17 19:45 Atropine Sulfate (Atropine Sulfate 0.1MG/Ml Inj) 0.5 mg Q1M PRN IV 07/14/17 14:45 07/14/17 19:45 Acetaminophen 1000 mg/Empty Bag 100 ml @ 400 mls/hr Q8H IV 07/14/17 16:00 08/13/17 15:59 Oxycodone HCl (Roxicodone Immediate Rel Tab) 5 mg Q6H PRN PO 07/14/17 15:00 07/28/17 14:59 Docusate Sodium (coLACE CAP) 100 mg BID PO 07/14/17 20:00 08/13/17 19:59 Cefazolin Sodium 2000 mg/Syringe 10 ml @ 2.5 mls/min Q8H IV 07/14/17 20:00 07/15/17 19:59 Metoclopramide HCl (Reglan Inj) 10 mg Q8 IV. 07/14/17 22:00 07/15/17 21:59 Morphine Sulfate (MoRPHine SULFATE INJ) 1 mg Q1H PRN IV 07/14/17 15:00 07/28/17 14:59 Sodium Chloride 1,000 ml @ 75 mls/hr [id number] IV 07/14/17 15:15 08/13/17 15:14 Morphine Sulfate (MoRPHine SULFATE INJ) 2 mg Q1H PRN IV 07/14/17 15:15 07/28/17 15:14 Review of Systems Not obtainable as the patient being intubated and still sedated. Physical Exam Date Time Temp Pulse Resp B/P (MAP) Pulse Ox O2 Delivery O2 Flow Rate FiO2 07/14/17 18:00 36.6 71 19 114/42 (66) 100 Mechanical Ventilator 60 07/14/17 16:50 36.5 79 16 148/83 98 Mechanical Ventilator 50 132/53 07/14/17 16:35 36.5 74 16 109/51 98 Mechanical Ventilator 50 129/54 07/14/17 16:25 76 16 124/51 98 Mechanical Ventilator 50 130/52 07/14/17 16:10 75 16 147/60 98 Mechanical Ventilator 50 120/48 07/14/17 16:00 70 16 112/74 98 Mechanical Ventilator 50 126/52 07/14/17 15:50 71 16 139/68 98 Mechanical Ventilator 50 125/49 07/14/17 15:40 75 16 125/73 98 Mechanical Ventilator 50 122/51 07/14/17 15:31 50 07/14/17 15:30 72 16 118/81 99 Mechanical Ventilator 50 07/14/17 15:20 36.1 76 16 134/59 99 Mechanical Ventilator 50 07/14/17 11:22 81 16 99 Nasal Cannula 2.0 07/14/17 08:30 96 Nasal Cannula 2.0 07/14/17 07:16 83 16 96 Nasal Cannula 2.0 07/14/17 07:03 36.8 81 20 107/66 (80) 91 Nasal Cannula 2.0 07/14/17 00:00 Nasal Cannula 2.0 07/13/17 23:11 37.5 98 20 128/80 (96) 90 Room Air 07/13/17 20:44 77 126/78 (94) 96 Nasal Cannula 2.0 07/13/17 20:00 Nasal Cannula 2.0 07/13/17 19:56 89 16 98 Nasal Cannula 2.0 General Appearance: uncomfortable Eyes: PERRLA ENT: normal mouth exam Neck: normal range of motion, no stridor Respiratory: breath sounds normal, rhonchi Cardiovasular: regular rate/rhythm, normal S1S2, no M/G/R Abdomen: non tender, no rebound, no masses Upper Extremities: no edema Lower Extremities: no edema Neuro: other Laboratory Results Last 24 Hours Test 07/13/17 18:25 07/13/17 20:07 07/14/17 06:30 07/14/17 07:36 Sodium Level 125 mmol/L 128 mmol/L Potassium Level 4.5 mmol/L 4.3 mmol/L Chloride Level 93 mmol/L 94 mmol/L Carbon Dioxide Level 22 mmol/L 24 mmol/L Anion Gap 10.0 mmol/L 10.0 mmol/L Blood Urea Nitrogen 46 mg/dl 49 mg/dl Creatinine 3.57 mg/dl 3.84 mg/dl Est Creatinine Clear Calc Drug Dose 15.8 ml/min 15.0 ml/min Estimated GFR () 14.0 12.8 Estimated GFR (Non- 12.1 11.1 BUN/Creatinine Ratio 12.8 12.8 Random Glucose 100 mg/dl 42 mg/dl Calcium Level 8.6 mg/dl 8.9 mg/dl Bedside Glucose 95 mg/dl 44 mg/dl White Blood Count 9.87 K/uL Red Blood Count 3.68 M/uL Hemoglobin 9.3 g/dL Hematocrit 29.5 % Mean Corpuscular Volume 80.2 fL Mean Corpuscular Hemoglobin 25.3 pg Mean Corpuscular Hemoglobin Concent 31.5 g/dl RDW Standard Deviation 54.3 fL RDW Coefficient of Variation 18.5 % Platelet Count 313 K/uL Mean Platelet Volume 9.7 fL Test 07/14/17 08:21 07/14/17 11:58 07/14/17 13:09 07/14/17 13:22 Bedside Glucose 153 mg/dl 76 mg/dl 67 mg/dl 137 mg/dl Test 07/14/17 15:33 Bedside Glucose 93 mg/dl Diagnostic Results Chest x-ray was reviewed which revealed proximal catheter in position, left lower lobe atelectasis, mild pulmonary vascular congestion, no pneumothorax. CAT scan of the chest revealed pulmonary vascular congestion, bilateral pleural effusion, emphysematous changes, cardiomegaly. All imaging has been reviewed personally. Assessment & Plan #1 acute respiratory failure secondary to volume loss left lower lobe postop. #2 although the patient doesn't have history of COPD but she does have emphysematous changes on the CAT scan done recently. #3 history of coronary artery disease with pulmonary vascular congestion. #4 history of chronic kidney disease with difficulty compensating for the bicarbonate. #5 mixed metabolic and respiratory acidosis. #6 left ribs injury secondary to fall. Plan: #1 ABG was obtained and reviewed and we'll give the patient intubated. #2 we will attempt extubation tomorrow. #3 I would use frequent doses of fentanyl. #4 obtain chest x-ray in the morning. #5 management of the chest tube deferred to Dr. Ortiz. #6 given the patient nothing by mouth. #7 DVT prophylaxis, compression boots. #8 in the morning. #9 tunneled catheter site appeared normal postop. #10 spontaneous breathing trial in the morning. Case discussed with the staff and details. Critical care time spent with the patient was 45 minutes.
[2017-07-14] MEDS: CEFAZOLIN IV 2,000 MG in SYRINGE 0 ML IV SCH (20:06)
[2017-07-14] MEDS: DOCUSATE SODIUM 100 MG CAP PO SCH (21:00)
[2017-07-14] MEDS ORDERED: FENTANYL CITRATE INJ 50 MCG/1 ML 2 ML VIAL IV ONE (21:45)
[2017-07-14 22:09] LABS: ISTAT ARTERIAL BLOOD GAS HCO3 23 meq/L (19-24); ISTAT ARTERIAL BLOOD GAS PCO2 40 mmHg (35-46); ISTAT ARTERIAL BLOOD GAS PO2 201 mmHg (80-95); ISTAT ARTERIAL BLOOD GAS pH 7.36 (7.35-7.45); ISTAT CARBON DIOXIDE 24 mEq/l (24-31); ISTAT DELIVERY SYSTEM Ventilator; ISTAT FIO2 50 %; ISTAT PEEP 5; ISTAT RATE 16; ISTAT SITE Art Line; VE 7.7; Vt 450
[2017-07-14] MEDS: METOCLOPRAMIDE HCL INJ 5 MG/ML 2 ML VIAL IV. SCH (23:23)
[2017-07-15] VITALS (18 sets, daily range): BP systolic 102–146; BP diastolic 50–96; PULSE 61–82; TEMP 36.3–36.6; O2SAT 85–100
[2017-07-15] MEDS: ACETAMINOPHEN IV 1,000 MG in EMPTY BAG 0 ML IV SCH (00:19)
[2017-07-15] MEDS: CEFAZOLIN IV 2,000 MG in SYRINGE 0 ML IV SCH ×2 (03:55→12:19)
[2017-07-15 05:21] LABS: HEMATOCRIT 29.9 % (37-47); MEAN CELL VOLUME 80.6 fL (80-100); MEAN CORPUSCULAR HEMOGLOBIN 25.1 pg (25-34); MEAN CORPUSCULAR HGB CONC 31.1 g/dl (32-36); MEAN PLATELET VOLUME 9.4 fL (7.4-10.4); PLATELET COUNT 264 K/uL (130-400); RED BLOOD COUNT 3.71 M/uL (4.2-5.4); WHITE BLOOD COUNT 7.31 K/uL (4.8-10.8)
[2017-07-15 05:45] LABS: BUN/CREATININE RATIO 15.6 (10-20); CALCIUM 8.3 mg/dl (8.5-10.1); CREATININE 3.67 mg/dl (0.60-1.20); POTASSIUM 4.9 mmol/L (3.5-5.1)
[2017-07-15] MEDS: SODIUM CHLORIDE 0.9% 1000ML 1,000 ML IV SCH ×2 (06:10→18:29)
[2017-07-15] MEDS: METOCLOPRAMIDE HCL INJ 5 MG/ML 2 ML VIAL IV. SCH (06:10)
[2017-07-15] MEDS: INSULIN ASPART 100 UNITS/ML 3 ML PEN SC SCH ×4 (06:10→20:59)
--- NOTE | 2017-07-15 07:08 | DIAGNOSTIC IMAGING REPORT ---
CHEST ONE VIEW PORTABLE CLINICAL HISTORY: effusion CHEST TUBE COMPARISON STUDY: 07/14/2017 FINDINGS: The endotracheal tube has been removed. A left-sided chest tube is again visualized. No pneumothorax is visualized. There are linear left basilar opacities, likely atelectatic. Trace pleural effusions are suspected.[ The heart is the upper limits of normal in size. IMPRESSION: 1. Interval removal of the endotracheal tube 2. No change in the position left-sided chest tube. No evidence of pneumothorax 3. Left basilar opacities, likely atelectatic Electronically signed by: Elieser Cha M.D. 07/15/2017 7:06 AM Dictated Date/Time: 07/15/2017 7:05 AM
[2017-07-15] MEDS: OXYCODONE HCL IR 5 MG TAB (IMMEDIATE RELEASE) PO PRN ×3 (07:45→23:50)
[2017-07-15] MEDS: LIDODERM (LIDOCAINE) PATCH 5% TD SCH (08:02)
[2017-07-15] MEDS: INSULIN GLARGINE SOLOSTAR 100 UNITS/ML 3 ML PEN SC SCH ×2 (08:03→21:00)
[2017-07-15] MEDS: SENNA 8.6 MG TAB PO SCH (08:05)
[2017-07-15] MEDS: AMIODARONE 200 MG TAB PO SCH (08:06)
[2017-07-15] MEDS: GABAPENTIN 300 MG CAP PO SCH ×2 (08:07→21:39)
[2017-07-15] MEDS: ATORVASTATIN 40 MG TAB PO SCH (08:07)
[2017-07-15] MEDS: CLOPIDOGREL BISULFATE 75 MG TAB PO SCH (08:07)
[2017-07-15] MEDS: CEROVITE ADV FORMULA TAB PO SCH (08:08)
[2017-07-15] MEDS: POLYETHYLENE (MIRALAX) 17 GM PACK PO SCH ×2 (08:09→20:47)
[2017-07-15] MEDS: FERROUS GLUCONATE 324 MG TAB PO SCH (08:09)
[2017-07-15] MEDS: MOMETASONE/FORMOTEROL (DULERA) INH INH SCH ×2 (08:10→21:39)
[2017-07-15] MEDS: NYSTATIN SUSP 500,000 U/5 ML UDC PO SCH ×4 (08:10→20:48)
[2017-07-15] MEDS: SODIUM BICARBONATE 650 MG TAB PO SCH ×2 (08:58→20:50)
[2017-07-15] MEDS: DOCUSATE SODIUM 100 MG CAP PO SCH ×2 (08:58→20:46)
[2017-07-15] MEDS: METOPROLOL TARTRATE 50 MG TAB PO SCH ×2 (08:59→20:47)
[2017-07-15] MEDS ORDERED: BISACODYL 10 MG SUPP PR STA (10:25)
--- NOTE | 2017-07-15 10:27 | Nephrology Progress Note ---
Nephrology Progress Note Date of Service Jul 15, 2017. Chief Complaint Acute on CKD, hyponatremia Subjective Mrs. Chappell was seen & examined in the ICU this morning. She underwent nerve block and L chest tube placement yesterday. She required ventilatory support and was transferred to the ICU overnight. This morning she has been extubated. She reports that her chest discomfort and breathing are improved. Review of Systems Constitutional: No fever Cardiovascular: + problem reported (chest discomfort due to rib fractures and chest tube) Respiratory: No dyspnea at rest Abdomen: No pain, No nausea Extremities: No leg edema A complete review of systems was performed. Pertinent positives are noted above. All other systems are negative. Vital Signs Last 8 Hrs Date Time Temp Pulse Resp B/P (MAP) Pulse Ox O2 Delivery O2 Flow Rate FiO2 07/15/17 08:00 36.5 76 17 114/65 (81) 93 Room Air 07/15/17 08:00 93 Room Air 07/15/17 05:31 69 17 110/56 (74) 93 07/15/17 05:29 73 18 118/57 (77) 07/15/17 05:01 68 17 113/61 (78) 07/15/17 04:01 36.3 73 19 136/76 (96) 94 Room Air 07/15/17 04:00 Nasal Cannula 2.0 07/15/17 03:02 65 17 112/53 (72) 95 Nasal Cannula 2.0 Last Recorded Weight Weight (Kilograms): 88.900 Physical Exam General Appearance: no apparent distress Head: normocephalic, atraumatic Eyes: PERRL, EOMI Neck: no adenopathy Respiratory/Chest: lungs clear, no respiratory distress, + pertinent finding ( L chest tube w/ clean dry dressing in place) Cardiovascular: regular rate, rhythm Abdomen/GI: normal bowel sounds, non tender, soft Extremities/Musculoskelatal: no calf tenderness, no pedal edema Neurologic/Psych: no motor/sensory deficits, oriented x 3 Family History Diabetes mellitus FH: gallbladder disease FH: heart disease FH: lung disease FHx: cancer Hypertension Negative for CKD / ESRD Social History Drug Use: none Marital Status: Occupation: retired . Retired. 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/17) Laboratory Results Past 24 Hours 07/15/17 05:12 07/15/17 05:12 Test 07/14/17 11:58 07/14/17 13:09 07/14/17 13:22 07/14/17 15:33 Bedside Glucose 76 mg/dl (70-90) 67 mg/dl (70-90) 137 mg/dl (70-90) 93 mg/dl (70-90) Test 07/14/17 18:14 07/14/17 20:02 07/14/17 21:55 07/14/17 23:47 Blood Gas Sample Site Art Line Art Line Bedside Blood Gas pH (LAB) 7.30 (7.35-7.45) 7.36 (7.35-7.45) Bedside Blood Gas pCO2 (LAB) 45 mmHg (35-46) 40 mmHg (35-46) Bedside Blood Gas pO2 (LAB) 105 mmHg (80-95) 201 mmHg (80-95) Bedside Blood Gas HCO3 (LAB) 22 meq/L (19-24) 23 meq/L (19-24) Bedside Blood Gas Total CO2 24 mEq/l (24-31) 24 mEq/l (24-31) Bedside Blood Gas Base Excess (LAB) -4.0 meq/L (-9-1.8) -3.0 meq/L (-9-1.8) Bedside Blood Gas O2 Saturation 97.0 % (90-95) 100.0 % (90-95) Km Test NA NA Oxygen Delivery Device Ventilator Ventilator Bedside Oxygen Rate (breaths/min) 16 16 Blood Gas Minute Ventilation 8.5 7.7 Bedside FiO2 60 % 50 % Blood Gas Tidal Volume 450 450 Blood Gas PEEP 5 5 Bedside Glucose 97 mg/dl (70-90) 103 mg/dl (70-90) Test 07/15/17 05:00 07/15/17 05:12 Urine Osmolality 300 mOms/kg (500-800) Red Blood Count 3.71 M/uL (4.2-5.4) Mean Corpuscular Volume 80.6 fL (80-100) Mean Corpuscular Hemoglobin 25.1 pg (25-34) Mean Corpuscular Hemoglobin Concent 31.1 g/dl (32-36) RDW Standard Deviation 53.4 fL (36.4-46.3) RDW Coefficient of Variation 18.1 % (11.5-14.5) Mean Platelet Volume 9.4 fL (7.4-10.4) Anion Gap 10.0 mmol/L (3-11) Est Creatinine Clear Calc Drug Dose 15.7 ml/min Estimated GFR () 13.5 Estimated GFR (Non- 11.7 BUN/Creatinine Ratio 15.6 (10-20) Calcium Level 8.3 mg/dl (8.5-10.1) Date/Time Source Procedure Growth Status 07/14/17 17:15 Nasal MRSA DNA Surveillance Screen - Final Specimen Negative for MRSA by DNA Probe Complete Allergies Coded Allergies: No Known Allergies (Verified , 07/09/17) Medications Current Inpatient Medications Medications (Trade) Dose Ordered Sig/Dajuan Route Start Time Stop Time Status Last Admin Dose Admin Zolpidem Tartrate (Ambien Tab) 5 mg HSZ PRN PO 07/09/17 11:00 08/08/17 10:59 Lidocaine (Lidoderm Patch 5%) 1 patch QAM TD 07/10/17 09:00 08/09/17 08:59 07/15/17 08:02 1 PATCH Miscellaneous (Remove Lidoderm Patch) 1 ea DAILY@21 N/A 07/09/17 21:00 08/08/17 20:59 07/13/17 20:39 1 EA Amiodarone HCl (Cordarone Tab) 200 mg DAILY PO 07/10/17 09:00 08/09/17 08:59 07/15/17 08:06 200 MG Atorvastatin Calcium (Lipitor Tab) 40 mg DAILY PO 07/10/17 09:00 08/09/17 08:59 07/15/17 08:07 40 MG Clopidogrel Bisulfate (plAVix TAB) 75 mg DAILY PO 07/10/17 09:00 08/09/17 08:59 07/15/17 08:07 75 MG Gabapentin (Neurontin Cap) 300 mg BID PO 07/09/17 21:00 08/08/17 20:59 07/15/17 08:07 300 MG Insulin Glargine (Lantus Solostar Pen) 15 units QAM SC 07/10/17 09:00 08/09/17 08:59 07/15/17 08:03 15 UNITS Insulin Glargine (Lantus Solostar Pen) 20 units QPM SC 07/09/17 21:00 08/08/17 20:59 07/13/17 20:42 20 UNITS Metoprolol Tartrate (Lopressor Tab) 50 mg BID PO 07/09/17 21:00 08/08/17 20:59 07/15/17 08:59 50 MG Nitroglycerin (Nitrostat Tab) 0.4 mg UD PRN UT 07/09/17 11:00 08/08/17 10:59 Sodium Bicarbonate (Sodium Bicarbonate Tab) 650 mg BID PO 07/09/17 21:00 08/08/17 20:59 07/15/17 08:58 650 MG Multivitamins/ Minerals (Multivitamin W/ Minerals Tab) 1 tab DAILY PO 07/10/17 09:00 08/09/17 08:59 07/15/17 08:08 1 TAB Insulin Aspart (novoLOG ASPART) SLIDING SCALE G... ACHS SC 07/09/17 11:00 08/08/17 10:59 07/12/17 18:20 1 UNITS Glucose (Glucose 40% Gel) 15-30 GRAMS 15 GRAMS... UD PRN PO 07/09/17 12:00 08/08/17 11:59 Glucose (Glucose Chew Tab) 4-8 Tablets 4 Tabl... UD PRN PO 07/09/17 12:00 08/08/17 11:59 Dextrose (Dextrose 50% 50ML Syringe) 25-50ML OF 50% DW IV FOR... UD PRN IV 07/09/17 12:00 08/08/17 11:59 07/14/17 13:10 25 ML Glucagon (Glucagon Inj) 1 mg UD PRN SQ 07/09/17 12:00 08/08/17 11:59 Mometasone Furoate/ Formoterol Fumar (Dulera 100-5 Mcg/Act) 2 puffs BID INH 07/11/17 09:00 08/10/17 08:59 07/15/17 08:10 2 PUFFS Ferrous Gluconate (Ferrous Gluconate Tab) 324 mg QAM PO 07/11/17 14:00 08/10/17 13:59 07/15/17 08:09 324 MG Polyethylene (Miralax Powder Packet) 17 gm BID PO 07/12/17 12:45 08/08/17 12:44 07/15/17 08:09 17 GM Senna (Senokot Tab) 17.2 mg QAM PO 07/12/17 12:45 08/11/17 12:44 07/15/17 08:05 17.2 MG Bisacodyl (Dulcolax Supp) 10 mg Q12H PRN PA 07/12/17 11:00 08/11/17 10:59 Nystatin (Mycostatin Susp) 5 ml QID PO 07/12/17 12:45 07/22/17 12:44 07/15/17 08:10 5 ML Levofloxacin (Levaquin Tab) 500 mg Q2D@1100 PO 07/13/17 14:45 07/20/17 14:44 07/13/17 15:23 500 MG Albuterol/ Ipratropium (Duoneb) 3 ml QIDR PRN INH 07/14/17 12:00 08/13/17 11:59 Oxycodone HCl (Roxicodone Immediate Rel Tab) 5 mg Q6H PRN PO 07/14/17 15:00 07/28/17 14:59 07/15/17 07:45 5 MG Docusate Sodium (coLACE CAP) 100 mg BID PO 07/14/17 20:00 08/13/17 19:59 07/15/17 08:58 100 MG Cefazolin Sodium 2000 mg/Syringe 10 ml @ 2.5 mls/min Q8H IV 07/14/17 20:00 07/15/17 19:59 07/15/17 03:55 2.5 MLS/MIN Sodium Chloride 1,000 ml @ 75 mls/hr [id number] IV 07/14/17 15:15 08/13/17 15:14 07/15/17 06:10 75 MLS/HR Impression (1) Fall in home (2) Fracture of right ulnar styloid (3) 3 ribs fx from fell, 2 recent fells in 2 days, shoulder pain (4) ARF (acute renal failure) (5) Chronic kidney disease, stage 4 (severe) (6) Hyponatremia (7) Anemia (8) Hypertension (9) Diabetes (10) COPD (chronic obstructive pulmonary disease) (11) Narcotic-induced nausea and vomiting Mrs. Chappell was admitted following a mechanical fall. She suffered three rib fractures. Mrs. Chappell has developed narcotic associated nausea. She is now clinically dehydrated. Creatinine has risen from 2.8 to 3.8 and patient has mild hyponatremia. Urinalysis shows high specific gravity and urine sodium is low c/w intravascular volume contraction. Renal US revealed 9 cm kidneys w/ cortical thinning. There was no obstruction. JVD is likely a manifestation of pulmonary disease. Recommendations ACUTE KIDNEY INJURY: -- Remains clinically volume contracted. 07/15 CXR film reviewed this am: no overt CHF -- Continue to hold Furosemide -- Continue gentle hydration w/ 0.9 NS at 80 cc/hr -- Monitor serial PRP CHRONIC KIDNEY DISEASE: -- Baseline creatinine has been 2.8 -- Renal US report 07/14: 9 cm kidneys w/ cortical thinning. No stone/mass/ obstruction HYPONATREMIA: -- Serum sodium is stable. Continue gentle hydration w/ 0.9 NS -- Pain and narcotic use may be contributing to high ADH ANEMIA: -- Stable. If Hgb trends downward will consider checking iron stores and providing IV iron therapy RIB FRACTURES: -- Pain improved following nerve block 07/14
--- NOTE | 2017-07-15 11:01 | Anesthesiology Progress Note ---
Anesthesia Post Op Note Date & Time Jul 15, 2017 at 11:01 Vital Signs Vital Signs Past 12 Hours Date Time Temp Pulse Resp B/P (MAP) Pulse Ox O2 Delivery O2 Flow Rate FiO2 07/15/17 08:00 36.5 76 17 114/65 (81) 93 Room Air 07/15/17 08:00 93 Room Air 07/15/17 05:31 69 17 110/56 (74) 93 07/15/17 05:29 73 18 118/57 (77) 07/15/17 05:01 68 17 113/61 (78) 07/15/17 04:01 36.3 73 19 136/76 (96) 94 Room Air 07/15/17 04:00 Nasal Cannula 2.0 07/15/17 03:02 65 17 112/53 (72) 95 Nasal Cannula 2.0 07/15/17 02:01 68 14 102/59 (73) 07/15/17 01:01 72 23 105/50 (68) 92 Nasal Cannula 2.0 07/15/17 00:02 36.3 68 16 136/96 (109) 100 Nasal Cannula 4.0 07/15/17 00:00 Nasal Cannula 2.0 Notes Mental Status: alert / awake / arousable, participated in evaluation Pt Amnestic to Procedure: Yes Nausea / Vomiting: adequately controlled Pain: adequately controlled Airway Patency, RR, SpO2: stable & adequate BP & HR: stable & adequate Hydration State: stable & adequate Anesthetic Complications: no major complications apparent
[2017-07-15] MEDS: LEVOFLOXACIN 500 MG TAB PO SCH (11:05)
--- NOTE | 2017-07-15 15:12 | Critical Care Progress Note ---
Critical Care Progress Note Date of Service Jul 15, 2017. Attending Dr. Beckett Subjective The patient remains extubated, she denies any chest pain, no shortness of breath , she seems to be forgetful. No new symptoms were reported. Objective The patient's respiratory status has improved, output from the tunneled catheter was about 100 mL today, the patient does have also history of COPD and has been maintained on inhalers which she was restarted on. Current SOFA Score SOFA Score Response (Comments) Value PaO2/FiO2 (mmHg) < 400 1 SaO2 / FIO2 221 - 301 1 Platelets (x10) > 150 0 Bilirubin (mg/dL) < 1.2 0 [place] Coma Score 15 0 Level of Hypotension No Hypotension 0 Creatinine (mg/dL) < 1.2 0 Total 2 Assessment & Plan #1 hemothorax. Status post tunneled catheter. #2 COPD, gold level II. #3 coronary artery disease status post stenting in November 2016. #4 history of osteoporosis. #5 history of hypertension. #6 paroxysmal A. fib. Plan: #1 continue to drain the tunneled catheter per Dr. Ortiz. #2 continue current bronchodilators. #3 oral intake. #4 patient can be dispositioned to regular floor. #5 decision to restart the patient on anticoagulation should be weight against risk of fall. #6 medication reconciliation was done. Case discussed with the staff on rounds. Time spent with the patient was 35 minutes. Consults & Procedures Consultants: Thoracic. Procedures: Tunneled pleural catheter. Data Medications: Current Inpatient Medications Medications (Trade) Dose Ordered Sig/Dajuan Route Start Time Stop Time Status Last Admin Dose Admin Lidocaine (Lidoderm Patch 5%) 1 patch QAM TD 07/10/17 09:00 08/09/17 08:59 07/15/17 08:02 1 PATCH Miscellaneous (Remove Lidoderm Patch) 1 ea DAILY@21 N/A 07/09/17 21:00 08/08/17 20:59 07/13/17 20:39 1 EA Amiodarone HCl (Cordarone Tab) 200 mg DAILY PO 07/10/17 09:00 08/09/17 08:59 07/15/17 08:06 200 MG Atorvastatin Calcium (Lipitor Tab) 40 mg DAILY PO 07/10/17 09:00 08/09/17 08:59 07/15/17 08:07 40 MG Clopidogrel Bisulfate (plAVix TAB) 75 mg DAILY PO 07/10/17 09:00 08/09/17 08:59 07/15/17 08:07 75 MG Gabapentin (Neurontin Cap) 300 mg BID PO 07/09/17 21:00 08/08/17 20:59 07/15/17 08:07 300 MG Insulin Glargine (Lantus Solostar Pen) 15 units QAM SC 07/10/17 09:00 08/09/17 08:59 07/15/17 08:03 15 UNITS Insulin Glargine (Lantus Solostar Pen) 20 units QPM SC 07/09/17 21:00 08/08/17 20:59 07/13/17 20:42 20 UNITS Metoprolol Tartrate (Lopressor Tab) 50 mg BID PO 07/09/17 21:00 08/08/17 20:59 07/15/17 08:59 50 MG Nitroglycerin (Nitrostat Tab) 0.4 mg UD PRN UT 07/09/17 11:00 08/08/17 10:59 Sodium Bicarbonate (Sodium Bicarbonate Tab) 650 mg BID PO 07/09/17 21:00 08/08/17 20:59 07/15/17 08:58 650 MG Multivitamins/ Minerals (Multivitamin W/ Minerals Tab) 1 tab DAILY PO 07/10/17 09:00 08/09/17 08:59 07/15/17 08:08 1 TAB Insulin Aspart (novoLOG ASPART) SLIDING SCALE G... ACHS SC 07/09/17 11:00 08/08/17 10:59 07/15/17 12:18 4 UNITS Glucose (Glucose 40% Gel) 15-30 GRAMS 15 GRAMS... UD PRN PO 07/09/17 12:00 08/08/17 11:59 Glucose (Glucose Chew Tab) 4-8 Tablets 4 Tabl... UD PRN PO 07/09/17 12:00 08/08/17 11:59 Dextrose (Dextrose 50% 50ML Syringe) 25-50ML OF 50% DW IV FOR... UD PRN IV 07/09/17 12:00 08/08/17 11:59 07/14/17 13:10 25 ML Glucagon (Glucagon Inj) 1 mg UD PRN SQ 07/09/17 12:00 08/08/17 11:59 Mometasone Furoate/ Formoterol Fumar (Dulera 100-5 Mcg/Act) 2 puffs BID INH 07/11/17 09:00 08/10/17 08:59 07/15/17 08:10 2 PUFFS Ferrous Gluconate (Ferrous Gluconate Tab) 324 mg QAM PO 07/11/17 14:00 08/10/17 13:59 07/15/17 08:09 324 MG Polyethylene (Miralax Powder Packet) 17 gm BID PO 07/12/17 12:45 08/08/17 12:44 07/15/17 08:09 17 GM Senna (Senokot Tab) 17.2 mg QAM PO 07/12/17 12:45 08/11/17 12:44 07/15/17 08:05 17.2 MG Bisacodyl (Dulcolax Supp) 10 mg Q12H PRN MS 07/12/17 11:00 08/11/17 10:59 Nystatin (Mycostatin Susp) 5 ml QID PO 07/12/17 12:45 07/22/17 12:44 07/15/17 12:19 5 ML Levofloxacin (Levaquin Tab) 500 mg Q2D@1100 PO 07/13/17 14:45 07/20/17 14:44 07/15/17 11:05 500 MG Albuterol/ Ipratropium (Duoneb) 3 ml QIDR PRN INH 07/14/17 12:00 08/13/17 11:59 Oxycodone HCl (Roxicodone Immediate Rel Tab) 5 mg Q6H PRN PO 07/14/17 15:00 07/28/17 14:59 07/15/17 13:37 5 MG Docusate Sodium (coLACE CAP) 100 mg BID PO 07/14/17 20:00 08/13/17 19:59 07/15/17 08:58 100 MG Cefazolin Sodium 2000 mg/Syringe 10 ml @ 2.5 mls/min Q8H IV 07/14/17 20:00 07/15/17 19:59 07/15/17 12:19 2.5 MLS/MIN Sodium Chloride 1,000 ml @ 75 mls/hr [id number] IV 07/14/17 15:15 08/13/17 15:14 07/15/17 06:10 75 MLS/HR I & O: 24-Hour Column 07/16/17 08:00 Intake Total 105 ml Output Total 550 ml Balance -445 ml Vital Signs: Date Time Temp Pulse Resp B/P (MAP) Pulse Ox O2 Delivery O2 Flow Rate FiO2 07/15/17 12:00 93 Room Air 07/15/17 12:00 74 22 135/88 (104) 93 Room Air 07/15/17 10:00 69 20 135/88 (104) 93 Room Air 07/15/17 08:00 36.5 76 17 114/65 (81) 93 Room Air 07/15/17 08:00 93 Room Air 07/15/17 05:31 69 17 110/56 (74) 93 07/15/17 05:29 73 18 118/57 (77) 07/15/17 05:01 68 17 113/61 (78) 07/15/17 04:01 36.3 73 19 136/76 (96) 94 Room Air 07/15/17 04:00 Nasal Cannula 2.0 07/15/17 03:02 65 17 112/53 (72) 95 Nasal Cannula 2.0 07/15/17 02:01 68 14 102/59 (73) 07/15/17 01:01 72 23 105/50 (68) 92 Nasal Cannula 2.0 07/15/17 00:02 36.3 68 16 136/96 (109) 100 Nasal Cannula 4.0 07/15/17 00:00 Nasal Cannula 2.0 07/14/17 23:01 70 19 122/66 (94) 100 07/14/17 22:31 68 19 125/62 (76) 100 07/14/17 22:01 70 17 124/62 (91) 99 07/14/17 21:31 68 13 111/62 (79) 100 07/14/17 21:01 74 16 121/72 (98) 100 07/14/17 20:31 72 14 127/65 (77) 100 07/14/17 20:31 72 14 127/65 (77) 100 07/14/17 20:20 50 07/14/17 20:01 63 17 126/77 (92) 100 07/14/17 20:01 63 17 126/77 (92) 100 07/14/17 20:00 60 07/14/17 20:00 Mechanical Ventilator 60 07/14/17 20:00 36.7 07/14/17 18:45 60 07/14/17 18:00 36.6 71 19 114/42 (66) 100 Mechanical Ventilator 60 07/14/17 16:50 36.5 79 16 148/83 98 Mechanical Ventilator 50 132/53 07/14/17 16:35 36.5 74 16 109/51 98 Mechanical Ventilator 50 129/54 07/14/17 16:25 76 16 124/51 98 Mechanical Ventilator 50 130/52 07/14/17 16:10 75 16 147/60 98 Mechanical Ventilator 50 120/48 07/14/17 16:00 70 16 112/74 98 Mechanical Ventilator 50 126/52 07/14/17 15:50 71 16 139/68 98 Mechanical Ventilator 50 125/49 07/14/17 15:40 75 16 125/73 98 Mechanical Ventilator 50 122/51 07/14/17 15:31 50 07/14/17 15:30 72 16 118/81 99 Mechanical Ventilator 50 07/14/17 15:20 36.1 76 16 134/59 99 Mechanical Ventilator 50 Laboratory Results: Last 24 Hours Test 07/14/17 15:33 07/14/17 18:14 07/14/17 20:02 07/14/17 21:55 Bedside Glucose 93 mg/dl 97 mg/dl Blood Gas Sample Site Art Line Art Line Bedside Blood Gas pH (LAB) 7.30 7.36 Bedside Blood Gas pCO2 (LAB) 45 mmHg 40 mmHg Bedside Blood Gas pO2 (LAB) 105 mmHg 201 mmHg Bedside Blood Gas HCO3 (LAB) 22 meq/L 23 meq/L Bedside Blood Gas Total CO2 24 mEq/l 24 mEq/l Bedside Blood Gas Base Excess (LAB) -4.0 meq/L -3.0 meq/L Bedside Blood Gas O2 Saturation 97.0 % 100.0 % Km Test NA NA Oxygen Delivery Device Ventilator Ventilator Bedside Oxygen Rate (breaths/min) 16 16 Blood Gas Minute Ventilation 8.5 7.7 Bedside FiO2 60 % 50 % Blood Gas Tidal Volume 450 450 Blood Gas PEEP 5 5 Test 07/14/17 23:47 07/15/17 05:00 07/15/17 05:12 Bedside Glucose 103 mg/dl Urine Osmolality 300 mOms/kg White Blood Count 7.31 K/uL Red Blood Count 3.71 M/uL Hemoglobin 9.3 g/dL Hematocrit 29.9 % Mean Corpuscular Volume 80.6 fL Mean Corpuscular Hemoglobin 25.1 pg Mean Corpuscular Hemoglobin Concent 31.1 g/dl RDW Standard Deviation 53.4 fL RDW Coefficient of Variation 18.1 % Platelet Count 264 K/uL Mean Platelet Volume 9.4 fL Sodium Level 127 mmol/L Potassium Level 4.9 mmol/L Chloride Level 96 mmol/L Carbon Dioxide Level 21 mmol/L Anion Gap 10.0 mmol/L Blood Urea Nitrogen 57 mg/dl Creatinine 3.67 mg/dl Est Creatinine Clear Calc Drug Dose 15.7 ml/min Estimated GFR () 13.5 Estimated GFR (Non- 11.7 BUN/Creatinine Ratio 15.6 Random Glucose 117 mg/dl Calcium Level 8.3 mg/dl
--- NOTE | 2017-07-15 15:28 | Hospitalist Progress Note ---
Hospitalist Progress Note Date of Service Jul 15, 2017. (Cristina Calderon ., LISANDROC) Subjective Pt evaluation today including: conversation w/ patient, conversation w/ family (at bedside), physical exam, chart review, lab review, review of studies, review of inpatient medication list Voiding: hodges catheter in place Patient still complains of severe pain in her left ribs. She could not quantify the severity for me on the 0-10 scale. She states it's not a 10 but "up there" in severity. The pain is exacerbated by any movement and coughing. She also complains of a somewhat less severe pain in her right wrist. She had a productive cough this morning. She denies any shortness of breath or wheezing. She reports dull lower abdominal pain and states she still has not had a bowel movement yet despite BID MiraLAX and daily Senokot. The patient denies fevers, chills, sweats, chest pain, palpitations, claudication, cough, wheezing, shortness of breath, nausea, vomiting, dysuria, hematuria, urinary retention, paralysis, weakness, acute/different numbness and tingling. Additional Comments: See HPI for pertinent positives and negatives. All other systems reviewed and negative. (Cristina Calderon ., PA-C) Objective Vital Signs Date Time Temp Pulse Resp B/P (MAP) Pulse Ox O2 Delivery O2 Flow Rate FiO2 07/15/17 12:00 93 Room Air 07/15/17 12:00 74 22 135/88 (104) 93 Room Air 07/15/17 10:00 69 20 135/88 (104) 93 Room Air 07/15/17 08:00 36.5 76 17 114/65 (81) 93 Room Air 07/15/17 08:00 93 Room Air 07/15/17 05:31 69 17 110/56 (74) 93 07/15/17 05:29 73 18 118/57 (77) 07/15/17 05:01 68 17 113/61 (78) 07/15/17 04:01 36.3 73 19 136/76 (96) 94 Room Air 07/15/17 04:00 Nasal Cannula 2.0 07/15/17 03:02 65 17 112/53 (72) 95 Nasal Cannula 2.0 07/15/17 02:01 68 14 102/59 (73) 07/15/17 01:01 72 23 105/50 (68) 92 Nasal Cannula 2.0 07/15/17 00:02 36.3 68 16 136/96 (109) 100 Nasal Cannula 4.0 07/15/17 00:00 Nasal Cannula 2.0 07/14/17 23:01 70 19 122/66 (94) 100 07/14/17 22:31 68 19 125/62 (76) 100 07/14/17 22:01 70 17 124/62 (91) 99 07/14/17 21:31 68 13 111/62 (79) 100 07/14/17 21:01 74 16 121/72 (98) 100 07/14/17 20:31 72 14 127/65 (77) 100 07/14/17 20:31 72 14 127/65 (77) 100 07/14/17 20:20 50 07/14/17 20:01 63 17 126/77 (92) 100 07/14/17 20:01 63 17 126/77 (92) 100 07/14/17 20:00 60 07/14/17 20:00 Mechanical Ventilator 60 07/14/17 20:00 36.7 07/14/17 18:45 60 07/14/17 18:00 36.6 71 19 114/42 (66) 100 Mechanical Ventilator 60 07/14/17 16:50 36.5 79 16 148/83 98 Mechanical Ventilator 50 132/53 07/14/17 16:35 36.5 74 16 109/51 98 Mechanical Ventilator 50 129/54 07/14/17 16:25 76 16 124/51 98 Mechanical Ventilator 50 130/52 07/14/17 16:10 75 16 147/60 98 Mechanical Ventilator 50 120/48 07/14/17 16:00 70 16 112/74 98 Mechanical Ventilator 50 126/52 07/14/17 15:50 71 16 139/68 98 Mechanical Ventilator 50 125/49 07/14/17 15:40 75 16 125/73 98 Mechanical Ventilator 50 122/51 07/14/17 15:31 50 07/14/17 15:30 72 16 118/81 99 Mechanical Ventilator 50 07/14/17 15:20 36.1 76 16 134/59 99 Mechanical Ventilator 50 (Cristina Calderon, PA-C) Physical Exam Notes: General appearance: +Obese. Well-developed, well-nourished, no apparent distress Head: Normocephalic, atraumatic Eyes: Normal inspection, PERRL, EOMI ENT: +Dry oral mucosa. Normal ENT inspection, hearing grossly normal, pharynx normal Neck: Supple, no JVD, trachea midline Respiratory/Chest: +Decreased breath sounds. Poor respiratory effort secondary to pain. Lungs clear to auscultation, no respiratory distress Cardiovascular: +Irregularly irregular, rate controlled. Systolic murmur. No gallop Abdomen/GI: +Lower abdomen mildly TTP. Normal bowel sounds, soft Extremities/Musculoskeletal: +1+ pitting edema. Right forearm in volar splint. No calf tenderness Neurological/Psych: +Decreased sensation right fingers. Alert, normal mood/ affect, oriented x 3 Skin: +Ecchymoses right inner elbow, right fingers. Normal color, warm/dry, no rash (Cristina Calderon, GERSON) Laboratory Results Last 24 Hours Test 07/14/17 15:33 07/14/17 18:14 07/14/17 20:02 07/14/17 21:55 Bedside Glucose 93 mg/dl 97 mg/dl Blood Gas Sample Site Art Line Art Line Bedside Blood Gas pH (LAB) 7.30 7.36 Bedside Blood Gas pCO2 (LAB) 45 mmHg 40 mmHg Bedside Blood Gas pO2 (LAB) 105 mmHg 201 mmHg Bedside Blood Gas HCO3 (LAB) 22 meq/L 23 meq/L Bedside Blood Gas Total CO2 24 mEq/l 24 mEq/l Bedside Blood Gas Base Excess (LAB) -4.0 meq/L -3.0 meq/L Bedside Blood Gas O2 Saturation 97.0 % 100.0 % Km Test NA NA Oxygen Delivery Device Ventilator Ventilator Bedside Oxygen Rate (breaths/min) 16 16 Blood Gas Minute Ventilation 8.5 7.7 Bedside FiO2 60 % 50 % Blood Gas Tidal Volume 450 450 Blood Gas PEEP 5 5 Test 07/14/17 23:47 07/15/17 05:00 07/15/17 05:12 Bedside Glucose 103 mg/dl Urine Osmolality 300 mOms/kg White Blood Count 7.31 K/uL Red Blood Count 3.71 M/uL Hemoglobin 9.3 g/dL Hematocrit 29.9 % Mean Corpuscular Volume 80.6 fL Mean Corpuscular Hemoglobin 25.1 pg Mean Corpuscular Hemoglobin Concent 31.1 g/dl RDW Standard Deviation 53.4 fL RDW Coefficient of Variation 18.1 % Platelet Count 264 K/uL Mean Platelet Volume 9.4 fL Sodium Level 127 mmol/L Potassium Level 4.9 mmol/L Chloride Level 96 mmol/L Carbon Dioxide Level 21 mmol/L Anion Gap 10.0 mmol/L Blood Urea Nitrogen 57 mg/dl Creatinine 3.67 mg/dl Est Creatinine Clear Calc Drug Dose 15.7 ml/min Estimated GFR () 13.5 Estimated GFR (Non- 11.7 BUN/Creatinine Ratio 15.6 Random Glucose 117 mg/dl Calcium Level 8.3 mg/dl (Cristina Calderon ., PA-C) Diagnostic Results Reviewed the following studies and agree with interpretation as follows: CHEST ONE VIEW PORTABLE CLINICAL HISTORY: effusion CHEST TUBE COMPARISON STUDY: 07/14/2017 FINDINGS: The endotracheal tube has been removed. A left-sided chest tube is again visualized. No pneumothorax is visualized. There are linear left basilar opacities, likely atelectatic. Trace pleural effusions are suspected.[ The heart is the upper limits of normal in size. IMPRESSION: 1. Interval removal of the endotracheal tube 2. No change in the position left-sided chest tube. No evidence of pneumothorax 3. Left basilar opacities, likely atelectatic (Cristina Calderon ., PA-C) Assessment and Plan 71 y/o female with a history a-fib, CAD, CA s/p stent, HTN, HLD, chronic diastolic CHF, COPD, DM II, CKD stage IV, SHI, anxiety/depression, and Henson' s esophagus who presented following multiple falls and fractures. S/p multiple falls, multiple fractures hemothorax--ongoing -Displaced left rib fractures (ribs 8-9), nondisplaced left rib fracture (rib 10 ), right distal radial fracture, nondisplaced transverse process T10 fracture -Head CT, cervical spine CT, CT abdomen/pelvis, shoulder x-ray no acute disease -Ortho surgery consulted, appreciate recs: Continue volar splint, will likely transition to cast. No surgery for now but may be necessary later. Will sign off now but follow up in 1 week for right wrist. -Thoracic surgery following, appreciate recs: Pain control, aggressive pulmonary toilet, incentive spirometry, check daily CXR. Hemothorax drained for 700 cc on 07/14. PleurX in place. Nerve block from ribs 2-11. -Pt was initially not able to be extubated post surgery, transferred to ICU for vent support. Pt extubated late at night on 07/14, currently on room air. Transfer to tele -Continue lidocaine patch, Dilaudid 0.5 mg IV q4h prn pain, Roxicodone prn -Constipated likely secondary to narcotics: Senokot qam and Miralax BID. Still no BM, Dulcolax suppository x 1 now -Repeat CXR 07/15 shows PleurX, no pneumothorax Left base opacity likely representing atelectasis. Fevers, possible PNA--fevers resolved -D/C Zosyn -Continue with Levaquin 500 mg PO q48h (renal dosing, CrCl 15). Day #5 of abx -Urine and blood cultures negative Hyponatremia--stable -Sodium 127 on 07/15 -Repeat serum and urine osm 07/13 still low. Urine random sodium 5 -Urine osmolality 07/15 still low at 300 Acute renal failure on CKD stage IV--ongoing -Baseline creatine around 2.8-2.9 -Creatinine 3.67 on 07/15, improved from 3.84 -Nephrology consulted, appreciate recs: Continue to hold Lasix. Gentle IVF with NSS at 80 cc/hr -Hodges placed -Urology consulted, appreciate res: Maintain catheter 5-7 days, f/u 4 weeks Atrial fibrillation--stable, rate controlled -Continue amiodarone 200 mg PO qd -Hold warfarin due to hemothorax HTN, HLD, CAD, h/o CA s/p stent x 2--stable -Last ELAINE was on 11/17/2016 -Continue Lipitor 40 mg PO qd, Plavix 75 mg PO qd, Lopressor 50 mg PO BID Chronic diastolic CHF -CXR 07/13 shows pulmonary vascular prominence and bronchial wall cuffing increased from prior, suggesting volume overload. No costa pulmonary edema. -Lasix 60 mg IV x 1 on 07/13 -Hold Lasix per nephro recs DM II--HgbA1c 9.6 on 07/09 -Continue home Lantus 15 units SC qam and 20 units SC qpm -Insulin sliding scale -Check BSGs q ac and qhs COPD--wheezing resolved, could be secondary to COPD vs recent fluids -Continue Dulera 2 puffs inh BID -DuoNebs -Current smoker Oral candidiasis -Continue nystatin solution 5 mL PO QID. Day #4 DVT prophylaxis -Warfarin and chemical prophylaxis held due to hemothorax -SCDs Code Status -Level III, FULL NO MECH VENTILATION Dispo -From home -PT/OT recommend rehab if can't meet goals (Cristina Calderon ., PAKaityC) Attending Attestation: Pt seen/examined, chart reviewed, care plan d/w BUSHRA Calderon. I agree w/ the ferreira components of her documentation. Saw patient in ICU this am. She was sitting in bedside chair, breathing room air, and looked quite comfortable. She did admit to left-sided pleuritic pain but improved from previous. also w/ complaints of lower abdominal fullness. afebrile VSS gen - NAD, a/o x 3 neck - JVD to the jaw mouth - MM dry, thrush resolved heart - irregular, but rate<100 lungs - decreased BS right base, airation left base much improved; course BS b/l ; pleurX catheter in place, left abd - soft, BS+, NT, mild distension ext - right arm in splint; ecchymoses near elbow improving skin - extensive ecchymoses over right elbow, right hand, left flank/back - unchanged A/P: 1. acute renal failure in setting of CKD stage 4 - no significant improvement or worsening overnight. Nephrology following. Lasix on hold. BMP am. 2. acute hypoxic resp failure 2nd to left-sided hemothorax, COPD, and probable acute/chronic diastolic CHF - improving. 3. acute/chronic diastolic CHF - continues with JVD, +fluid balance, increase in weight while here. Will need to be cautious about additional fluid. 4. urethral stricture - s/p hodges; leave hodges x 7 days per urology. 5. hyponatremia - acute/chronic - no significant change. BMP daily. 6. rib fractures x 4 on left - s/p nerve block in the OR yesterday. 7. left-sided hemothorax - POD #1 s/p evacuation of hemothorax and pleurX catheter placement - management per thoracic surgery 8. acute blood loss anemia - 2nd to #7 in setting of chronic coumadin use - H/ H stable; coumadin has been held since admission. resume (cautiously) next 1-2 days? 9. h/o CAD - no ischemic symptoms at this time. 10. PAF - coumadin on hold, HRs wnl/controlled. grand-daughter updated by phone 07/13 and 07/15 ok to go to telemetry today Wendy GUERRA MD (Robb Guerra MD)
--- NOTE | 2017-07-15 20:19 | SURGERY PROGRESS NOTE ---
DATE: 07/15/2017 Jesenia looks great today. She is now on room air. She is ambulating in the hallway. We drained 100 mL from her PleurX last night and this morning. She had some reexpansion of pain with that but I thought her x-ray looked very good. She is definitely better. I am going to move her to a regular room. She sounds better. I was quite happy with her x-ray. I hope that this block will help her.
--- NOTE | 2017-07-15 20:47 | DIAGNOSTIC IMAGING REPORT ---
L WRIST MIN 3 VIEWS ROUTINE HISTORY: 71 years-old Female fracture acute left wrist pain status post fall COMPARISON: None available TECHNIQUE: 3 views of the left wrist FINDINGS: Bones appear moderately demineralized. 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 Moderate radiocarpal joint space narrowing. Mild soft tissue swelling about the wrist. No acute fracture or dislocation. IMPRESSION: 1. Mild soft tissue swelling without acute fracture or dislocation. 2. Moderately demineralized appearance of the bones with multifocal degenerative changes. The above report was generated using voice recognition software. It may contain grammatical, syntax or spelling errors. Electronically signed by: Parker Velásquez M.D. 07/15/2017 8:45 PM Dictated Date/Time: 07/15/2017 8:44 PM
[2017-07-15] MEDS ORDERED: NURSING VERBAL MED ORDER ONE (21:30)
--- NOTE | 2017-07-15 22:16 | DIAGNOSTIC IMAGING REPORT ---
CHEST ONE VIEW PORTABLE HISTORY: 71 years-old Female acute hypoxia COMPARISON: Chest radiograph 07/15/2017 TECHNIQUE: Portable upright AP view of the chest FINDINGS: Cardiac silhouette is enlarged, unchanged. No change in the left-sided chest tube. No pneumothorax. Blunting of left costophrenic angle with left basilar opacities. Subsegmental atelectasis/scarring of the lateral right midlung. Atherosclerosis of the aorta. Lungs are mildly hypoinflated. Multiple acute left-sided rib fractures redemonstrated. IMPRESSION: 1. Stable positioning of the left-sided chest tube without pneumothorax identified. 2. Small left pleural effusion with left basilar consolidation. 3. Multiple acute left-sided rib fractures redemonstrated. The above report was generated using voice recognition software. It may contain grammatical, syntax or spelling errors. Electronically signed by: Parker Velásquez M.D. 07/15/2017 10:15 PM Dictated Date/Time: 07/15/2017 10:12 PM
[2017-07-15 22:40] LABS: BASO % 0.1 %; BASO ABS # 0.01 K/uL (0-0.2); COMPLETE YES; EOS % 0.1 %; HEMATOCRIT 28.8 % (37-47); IG% 0.3 %; LYMPH ABS # 0.62 K/uL (1.2-3.4); MEAN CELL VOLUME 78.7 fL (80-100); MEAN CORPUSCULAR HEMOGLOBIN 24.9 pg (25-34); MEAN CORPUSCULAR HGB CONC 31.6 g/dl (32-36); MEAN PLATELET VOLUME 9.7 fL (7.4-10.4); MONO % 7.2 %; NEUT % 86.3 %; PLATELET COUNT 344 K/uL (130-400); RED BLOOD COUNT 3.66 M/uL (4.2-5.4); WHITE BLOOD COUNT 10.39 K/uL (4.8-10.8)
[2017-07-15 22:56] LABS: CALCIUM 8.4 mg/dl (8.5-10.1); CREATININE 3.72 mg/dl (0.60-1.20); POTASSIUM 4.3 mmol/L (3.5-5.1)
[2017-07-16] VITALS (8 sets, daily range): BP systolic 110–133; BP diastolic 67–82; PULSE 72–80; TEMP 36.4–37.2; O2SAT 90–96
[2017-07-16 06:12] LABS: HEMATOCRIT 28.7 % (37-47); MEAN CELL VOLUME 79.1 fL (80-100); MEAN CORPUSCULAR HEMOGLOBIN 25.1 pg (25-34); MEAN CORPUSCULAR HGB CONC 31.7 g/dl (32-36); MEAN PLATELET VOLUME 9.8 fL (7.4-10.4); PLATELET COUNT 338 K/uL (130-400); RED BLOOD COUNT 3.63 M/uL (4.2-5.4); WHITE BLOOD COUNT 9.27 K/uL (4.8-10.8)
[2017-07-16 06:33] LABS: BUN/CREATININE RATIO 20.1 (10-20); CALCIUM 8.4 mg/dl (8.5-10.1); CREATININE 3.38 mg/dl (0.60-1.20)
--- NOTE | 2017-07-16 07:38 | DIAGNOSTIC IMAGING REPORT ---
CHEST ONE VIEW PORTABLE CLINICAL HISTORY: effusion dyspnea COMPARISON STUDY: 07/15/2017 FINDINGS: Left-sided chest tube unchanged in position. No significant postprocedural pneumothorax. Unchanging mild left basilar atelectasis and pleural fluid. Mild stable cardiomegaly. Chronic bullous pulmonary vasculature. IMPRESSION: Stable exam compared to the prior study. Unchanging position of a left-sided chest tube. No significant pneumothorax. The above report was generated using voice recognition software. It may contain grammatical, syntax or spelling errors. Electronically signed by: Jamison Valencia M.D. 07/16/2017 7:37 AM Dictated Date/Time: 07/16/2017 7:36 AM
[2017-07-16] MEDS: GABAPENTIN 300 MG CAP PO SCH ×2 (08:35→20:20)
[2017-07-16] MEDS: FERROUS GLUCONATE 324 MG TAB PO SCH (08:35)
[2017-07-16] MEDS: SENNA 8.6 MG TAB PO SCH (08:35)
[2017-07-16] MEDS: CEROVITE ADV FORMULA TAB PO SCH (08:35)
[2017-07-16] MEDS: AMIODARONE 200 MG TAB PO SCH (08:36)
[2017-07-16] MEDS: SODIUM BICARBONATE 650 MG TAB PO SCH ×2 (08:36→20:21)
[2017-07-16] MEDS: METOPROLOL TARTRATE 50 MG TAB PO SCH ×2 (08:36→20:20)
[2017-07-16] MEDS: INSULIN ASPART 100 UNITS/ML 3 ML PEN SC SCH ×4 (08:38→20:14)
[2017-07-16] MEDS: INSULIN GLARGINE SOLOSTAR 100 UNITS/ML 3 ML PEN SC SCH ×2 (08:38→20:23)
[2017-07-16] MEDS: NYSTATIN SUSP 500,000 U/5 ML UDC PO SCH ×4 (08:39→20:20)
[2017-07-16] MEDS: LIDODERM (LIDOCAINE) PATCH 5% TD SCH (08:39)
[2017-07-16] MEDS: OXYCODONE HCL IR 5 MG TAB (IMMEDIATE RELEASE) PO PRN (08:39)
[2017-07-16] MEDS: POLYETHYLENE (MIRALAX) 17 GM PACK PO SCH ×2 (08:39→20:21)
[2017-07-16] MEDS: MOMETASONE/FORMOTEROL (DULERA) INH INH SCH ×2 (08:40→20:20)
[2017-07-16] MEDS: ATORVASTATIN 40 MG TAB PO SCH (08:40)
[2017-07-16] MEDS: CLOPIDOGREL BISULFATE 75 MG TAB PO SCH (08:40)
[2017-07-16] MEDS: DOCUSATE SODIUM 100 MG CAP PO SCH ×2 (08:40→20:20)
--- NOTE | 2017-07-16 08:40 | DIAGNOSTIC IMAGING REPORT ---
RIGHT WRIST 4 VIEWS CLINICAL HISTORY: Follow-up fractures. FINDINGS: 4 views of the right wrist are compared to study dated 07/08/2017. The examination is performed through a splint, obscuring fine bony detail. The skeletal structures are osteopenic. There is a tiny avulsion fracture of the ulnar styloid. Again seen is an impacted fracture of the distal radial metaphysis with posteriorly distracted fragments. Alignment is near-anatomic. No new fracture is suspected. Arthritic change is present at the radiocarpal, intercarpal, and first carpometacarpal articulations. Overlying soft tissue edema persists. IMPRESSION: 1. Unchanged alignment of an impacted radial metaphyseal fracture as compared to previous. 2. There is a tiny avulsion fracture of the ulnar styloid. Electronically signed by: Piyush Fox M.D. 07/16/2017 8:39 AM Dictated Date/Time: 07/16/2017 8:37 AM
--- NOTE | 2017-07-16 10:12 | Hospitalist Progress Note ---
Hospitalist Progress Note Date of Service Jul 16, 2017. (Cristina Calderon ., LISANDROC) Subjective Pt evaluation today including: conversation w/ patient, physical exam, chart review, lab review, review of studies, review of inpatient medication list Pain: Left rib pain, right wrist pain PO Intake: Tolerating PO diet Voiding: hodges catheter in place The patient reports feeling better. She still reports pain in her left ribs, but states that it is improved from yesterday. Her right wrist pain is also improved. The patient received oxycodone prior to my examination. She does report a productive cough and some intermittent wheezing but denies any shortness of breath currently. She still has not had a bowel movement yet. She reports some dull lower abdominal pain. The patient denies fevers, chills, sweats, chest pain, palpitations, claudication, shortness of breath, nausea, vomiting, dysuria, hematuria, urinary retention, paralysis, weakness, new numbness and tingling. Additional Comments: See HPI for pertinent positives and negatives. All other systems reviewed and negative. (Cristina Calderon ., PA-C) Objective Vital Signs Date Time Temp Pulse Resp B/P (MAP) Pulse Ox O2 Delivery O2 Flow Rate FiO2 07/16/17 08:00 36.6 80 20 114/67 (83) 95 Room Air 07/16/17 04:00 Nasal Cannula 2.0 07/16/17 03:18 36.4 73 20 133/68 (89) 96 Nasal Cannula 2.0 07/16/17 00:21 36.4 72 20 131/82 (98) 91 Nasal Cannula 2.0 07/15/17 23:59 Nasal Cannula 2.0 07/15/17 22:19 65 18 92 Nasal Cannula 2.0 07/15/17 20:51 82 20 146/82 (103) 97 Nasal Cannula 2.0 07/15/17 20:45 85 Room Air 07/15/17 20:00 94 Room Air 07/15/17 19:07 36.6 74 20 126/71 (89) 94 Room Air 07/15/17 16:00 93 Room Air 07/15/17 15:48 36.4 61 18 134/75 (94) 93 Room Air 07/15/17 12:00 93 Room Air 07/15/17 12:00 74 22 135/88 (104) 93 Room Air (Cristina Calderon ., PA-C) Physical Exam Notes: General appearance: +Obese. Well-developed, well-nourished, no apparent distress Head: Normocephalic, atraumatic Eyes: Normal inspection, PERRL, EOMI ENT: +Dry oral mucosa. Normal ENT inspection, hearing grossly normal, pharynx normal Neck: Supple, no JVD, trachea midline Respiratory/Chest: +Decreased breath sounds. Lungs clear to auscultation, no respiratory distress Cardiovascular: +Irregularly irregular, rate controlled. Systolic murmur. No gallop Abdomen/GI: +Mildly distended. Normal bowel sounds, non-tender Extremities/Musculoskeletal: +Trace pitting edema. Right forearm in volar splint. No calf tenderness Neurological/Psych: +Decreased sensation right fingers. Lethargic. Normal mood/affect, oriented x 3 Skin: +Ecchymoses right inner elbow, right fingers. Normal color, warm/dry, no rash (Cristina Calderon ., PA-C) Laboratory Results Last 24 Hours Test 07/15/17 11:09 07/15/17 16:09 07/15/17 20:00 07/15/17 22:28 Bedside Glucose 175 mg/dl 197 mg/dl 272 mg/dl White Blood Count 10.39 K/uL Red Blood Count 3.66 M/uL Hemoglobin 9.1 g/dL Hematocrit 28.8 % Mean Corpuscular Volume 78.7 fL Mean Corpuscular Hemoglobin 24.9 pg Mean Corpuscular Hemoglobin Concent 31.6 g/dl Platelet Count 344 K/uL Mean Platelet Volume 9.7 fL Neutrophils (%) (Auto) 86.3 % Lymphocytes (%) (Auto) 6.0 % Monocytes (%) (Auto) 7.2 % Eosinophils (%) (Auto) 0.1 % Basophils (%) (Auto) 0.1 % Neutrophils # (Auto) 8.97 K/uL Lymphocytes # (Auto) 0.62 K/uL Monocytes # (Auto) 0.75 K/uL Eosinophils # (Auto) 0.01 K/uL Basophils # (Auto) 0.01 K/uL RDW Standard Deviation 51.6 fL RDW Coefficient of Variation 17.9 % Immature Granulocyte % (Auto) 0.3 % Immature Granulocyte # (Auto) 0.03 K/uL Sodium Level 127 mmol/L Potassium Level 4.3 mmol/L Chloride Level 95 mmol/L Carbon Dioxide Level 22 mmol/L Anion Gap 10.0 mmol/L Blood Urea Nitrogen 67 mg/dl Creatinine 3.72 mg/dl Est Creatinine Clear Calc Drug Dose 15.4 ml/min Estimated GFR () 13.3 Estimated GFR (Non- 11.5 BUN/Creatinine Ratio 18.0 Random Glucose 168 mg/dl Calcium Level 8.4 mg/dl Total Bilirubin 0.5 mg/dl Direct Bilirubin 0.3 mg/dl Aspartate Amino Transf (AST/SGOT) 67 U/L Alanine Aminotransferase (ALT/SGPT) 23 U/L Alkaline Phosphatase 152 U/L Total Protein 6.5 gm/dl Albumin 2.4 gm/dl Test 07/16/17 05:45 07/16/17 06:27 White Blood Count 9.27 K/uL Red Blood Count 3.63 M/uL Hemoglobin 9.1 g/dL Hematocrit 28.7 % Mean Corpuscular Volume 79.1 fL Mean Corpuscular Hemoglobin 25.1 pg Mean Corpuscular Hemoglobin Concent 31.7 g/dl RDW Standard Deviation 52.2 fL RDW Coefficient of Variation 18.0 % Platelet Count 338 K/uL Mean Platelet Volume 9.8 fL Sodium Level 127 mmol/L Potassium Level 4.0 mmol/L Chloride Level 96 mmol/L Carbon Dioxide Level 20 mmol/L Anion Gap 11.0 mmol/L Blood Urea Nitrogen 68 mg/dl Creatinine 3.38 mg/dl Est Creatinine Clear Calc Drug Dose 17.5 ml/min Estimated GFR () 15.0 Estimated GFR (Non- 12.9 BUN/Creatinine Ratio 20.1 Random Glucose 108 mg/dl Calcium Level 8.4 mg/dl Bedside Glucose 113 mg/dl (Cristina Calderon, BUSHRA-C) Diagnostic Results Reviewed the following studies and agree with interpretation as follows: CHEST ONE VIEW PORTABLE CLINICAL HISTORY: effusion dyspnea COMPARISON STUDY: 07/15/2017 FINDINGS: Left-sided chest tube unchanged in position. No significant postprocedural pneumothorax. Unchanging mild left basilar atelectasis and pleural fluid. Mild stable cardiomegaly. Chronic bullous pulmonary vasculature. IMPRESSION: Stable exam compared to the prior study. Unchanging position of a left-sided chest tube. No significant pneumothorax. RIGHT WRIST 4 VIEWS CLINICAL HISTORY: Follow-up fractures. FINDINGS: 4 views of the right wrist are compared to study dated 07/08/2017. The examination is performed through a splint, obscuring fine bony detail. The skeletal structures are osteopenic. There is a tiny avulsion fracture of the ulnar styloid. Again seen is an impacted fracture of the distal radial metaphysis with posteriorly distracted fragments. Alignment is near-anatomic. No new fracture is suspected. Arthritic change is present at the radiocarpal, intercarpal, and first carpometacarpal articulations. Overlying soft tissue edema persists. IMPRESSION: 1. Unchanged alignment of an impacted radial metaphyseal fracture as compared to previous. 2. There is a tiny avulsion fracture of the ulnar styloid. (Cristina Calderon ., PA-C) Assessment and Plan 71 y/o female with a history a-fib, CAD, ND s/p stent, HTN, HLD, chronic diastolic CHF, COPD, DM II, CKD stage IV, SHI, anxiety/depression, and Henson' s esophagus who presented following multiple falls and fractures. S/p multiple falls, multiple fractures hemothorax--improving -Displaced left rib fractures (ribs 8-9), nondisplaced left rib fracture (rib 10 ), right distal radial fracture, nondisplaced transverse process T10 fracture -Head CT, cervical spine CT, CT abdomen/pelvis, shoulder x-ray no acute disease -Ortho surgery consulted, appreciate recs: Continue volar splint, will likely transition to cast. No surgery for now but may be necessary later. Will sign off now but follow up in 1 week for right wrist. -Thoracic surgery following, appreciate recs: Pain control, aggressive pulmonary toilet, incentive spirometry, check daily CXR. Hemothorax drained for 700 cc on 07/14. PleurX in place. Nerve block from ribs 2-11. PleurX drained 100 cc 07/15. -Pt was initially not able to be extubated post surgery, transferred to ICU for vent support. Pt extubated late at night on 07/14, currently on room air. Transfer to tele -Continue lidocaine patch, Dilaudid 0.5 mg IV q4h prn pain, Roxicodone prn -Constipated likely secondary to narcotics: Senokot qam and Miralax BID. Still no BM after Dulcolax and fleet enema. Order KUB and start scheduled Dulcolax tabs -Repeat CXR 07/16 shows PleurX, no pneumothorax. Stable from prior study Lethargy -VBG now -Check ammonia Fevers, possible PNA--fevers resolved -D/C Zosyn -Continue with Levaquin 500 mg PO q48h (renal dosing, CrCl 15). Day #6 of abx -Urine and blood cultures negative Hyponatremia--stable -Sodium 127 on 07/16 -Repeat serum and urine osm 07/13 still low. Urine random sodium 5 -Urine osmolality 07/15 still low at 300 Acute renal failure on CKD stage IV--improving -Baseline creatine around 2.8-2.9 -Creatinine 3.38 on 07/16, down from 3.72 -Nephrology consulted, appreciate recs: Continue to hold Lasix. Gentle IVF with NSS at 80 cc/hr -IVF stopped last night after pt developed some crackles and hypoxia -Hodges placed -Urology consulted, appreciate res: Maintain catheter 5-7 days, f/u 4 weeks Atrial fibrillation--stable, rate controlled -Continue amiodarone 200 mg PO qd -Hold warfarin due to hemothorax HTN, HLD, CAD, h/o ND s/p stent x 2--stable -Last ELAINE was on 11/17/2016 -Continue Lipitor 40 mg PO qd, Plavix 75 mg PO qd, Lopressor 50 mg PO BID Chronic diastolic CHF -CXR 07/13 shows pulmonary vascular prominence and bronchial wall cuffing increased from prior, suggesting volume overload. No costa pulmonary edema. -Lasix 60 mg IV x 1 on 07/13 -Hold Lasix per nephro recs DM II--HgbA1c 9.6 on 07/09 -Continue home Lantus 15 units SC qam and 20 units SC qpm -Insulin sliding scale -Check BSGs q ac and qhs COPD--wheezing resolved, could be secondary to COPD vs recent fluids -Continue Dulera 2 puffs inh BID -DuoNebs -Current smoker Oral candidiasis--stable/resolving -Continue nystatin solution 5 mL PO QID. Day #5 DVT prophylaxis -Warfarin and chemical prophylaxis held due to hemothorax -SCDs Code Status -Level III, FULL NO MECH VENTILATION Dispo -From home -PT/OT recommend rehab if can't meet goals (Cristina Calderon ., PA-C) Attending Attestation: Pt seen/examined, chart reviewed, care plan d/w PA Cristina Calderon. I agree w/ the ferreira components of her documentation. During my visit patient was falling asleep very easily. In fact she was talking to son on phone and fell asleep during such. Staff report she was doing this most of day. Surprisingly she has been oriented to person, place, etc. Only complaint is that of left rib pain but improved from prior. afebrile VSS o2 sats acceptable in RA gen - very sleepy, able to be aroused neck - JVD still present mouth - MM more moist heart - irregular lungs - decreased BS right base, airation left base stable; course BS b/l; pleurX catheter in place, left abd - soft, BS+, NT, mild distension unchanged ext - right arm in splint; ecchymoses near elbow improving skin - extensive ecchymoses over right elbow, right hand, left flank/back improving Na 127 ammonia wnl VBG - pCO2 44 A/P: 1. acute renal failure in setting of CKD stage 4 - mild improvement with ARF. Nephrology following. Lasix on hold. IVF stopped overnight due to concern of fluid overload with hypoxia/desatting. BMP am. 2. acute hypoxic resp failure 2nd to left-sided hemothorax, COPD, and probable acute/chronic diastolic CHF - improving/resolved. 3. acute/chronic diastolic CHF - continues with JVD, +fluid balance, increase in weight while here. Fluids have been d/c. 4. urethral stricture - s/p hodges; leave hodges x minimum 7 days per urology. 5. hyponatremia - acute/chronic - low but stable/acceptable. 6. rib fractures x 4 on left - s/p nerve block in the OR by Dr. Ortiz. Perhaps oxycodone is making her sleepy; stop oxy, change to norco. 7. left-sided hemothorax - POD #2 s/p evacuation of hemothorax and pleurX catheter placement - management per thoracic surgery 8. acute blood loss anemia - 2nd to #7 in setting of chronic coumadin use - H/ H stable; coumadin had been held since admission. H/h stable x [address] surgery ok with resuming coumadin slowly. Resume 5mg daily with daily INR. no bridge. 9. h/o CAD - no ischemic symptoms at this time. 10. PAF - resume coumadin. 11. lethargy - ammonia, pCO2 wnl. FSBS wnl no fever to suggest ongoing infection cause? narcotics? other? if persistent then CT head or brain MRI as she is at risk of stroke(s) due to a. fib grand-daughter updated by phone 07/13 and 07/15 Wendy GUERRA MD (Robb Guerra MD)
[2017-07-16] MEDS ORDERED: MILK AND MOLASSES ENEMA PR ONE (10:15)
[2017-07-16] MEDS ORDERED: SODIUM CHLORIDE 0.9% 1000ML 1,000 ML IV SCH (10:15)
--- NOTE | 2017-07-16 10:21 | Nephrology Progress Note ---
Nephrology Progress Note Date of Service Jul 16, 2017. Chief Complaint Acute on CKD, hyponatremia Subjective Mrs. Chappell was seen & examined in the PCU this morning. She is sitting in a chair breathing comfortably on room air. She complains of mild discomfort due to her rib fractures. Her IVF was held yesterday due to "crackles" on pulmonary exam. Review of Systems Constitutional: No fever Cardiovascular: No chest pain Respiratory: No dyspnea at rest Abdomen: No pain, No nausea, No vomiting Extremities: No leg edema A complete review of systems was performed. Pertinent positives are noted above. All other systems are negative. Vital Signs Last 8 Hrs Date Time Temp Pulse Resp B/P (MAP) Pulse Ox O2 Delivery O2 Flow Rate FiO2 07/16/17 08:00 36.6 80 20 114/67 (83) 95 Room Air 07/16/17 04:00 Nasal Cannula 2.0 07/16/17 03:18 36.4 73 20 133/68 (89) 96 Nasal Cannula 2.0 Last Recorded Weight Weight (Kilograms): 95.500 Physical Exam General Appearance: no apparent distress Head: normocephalic, atraumatic Eyes: PERRL, EOMI Neck: no adenopathy, + JVD Respiratory/Chest: lungs clear Cardiovascular: + irregularly irregular Abdomen/GI: normal bowel sounds, non tender, soft Extremities/Musculoskelatal: no calf tenderness, no pedal edema Neurologic/Psych: alert, oriented x 3 Family History Diabetes mellitus FH: gallbladder disease FH: heart disease FH: lung disease FHx: cancer Hypertension Negative for CKD / ESRD Social History Drug Use: none Marital Status: Occupation: retired . Retired. intermediate smoker (quit 11/17) Laboratory Results Past 24 Hours 07/15/17 22:28 Red Blood Count 3.66, Mean Corpuscular Volume 78.7, Mean Corpuscular Hemoglobin 24.9, Mean Corpuscular Hemoglobin Concent 31.6, Mean Platelet Volume 9.7, Neutrophils (%) (Auto) 86.3, Lymphocytes (%) (Auto) 6.0, Monocytes (%) (Auto) 7.2, Eosinophils (%) (Auto) 0.1, Basophils (%) (Auto) 0.1, Neutrophils # (Auto) 8.97, Lymphocytes # (Auto) 0.62, Monocytes # (Auto) 0.75, Eosinophils # (Auto) 0.01, Basophils # (Auto) 0.01 07/16/17 05:45 07/15/17 22:28 07/16/17 05:45 Test 07/15/17 11:09 07/15/17 16:09 07/15/17 20:00 07/15/17 22:28 Bedside Glucose 175 mg/dl (70-90) 197 mg/dl (70-90) 272 mg/dl (70-90) White Blood Count 10.39 K/uL (4.8-10.8) Red Blood Count 3.66 M/uL (4.2-5.4) Hemoglobin 9.1 g/dL (12.0-16.0) Hematocrit 28.8 % (37-47) Mean Corpuscular Volume 78.7 fL (80-100) Mean Corpuscular Hemoglobin 24.9 pg (25-34) Mean Corpuscular Hemoglobin Concent 31.6 g/dl (32-36) Platelet Count 344 K/uL (130-400) Mean Platelet Volume 9.7 fL (7.4-10.4) Neutrophils (%) (Auto) 86.3 % Lymphocytes (%) (Auto) 6.0 % Monocytes (%) (Auto) 7.2 % Eosinophils (%) (Auto) 0.1 % Basophils (%) (Auto) 0.1 % Neutrophils # (Auto) 8.97 K/uL (1.4-6.5) Lymphocytes # (Auto) 0.62 K/uL (1.2-3.4) Monocytes # (Auto) 0.75 K/uL (0.11-0.59) Eosinophils # (Auto) 0.01 K/uL (0-0.5) Basophils # (Auto) 0.01 K/uL (0-0.2) RDW Standard Deviation 51.6 fL (36.4-46.3) RDW Coefficient of Variation 17.9 % (11.5-14.5) Immature Granulocyte % (Auto) 0.3 % Immature Granulocyte # (Auto) 0.03 K/uL (0.00-0.02) Anion Gap 10.0 mmol/L (3-11) Est Creatinine Clear Calc Drug Dose 15.4 ml/min Estimated GFR () 13.3 Estimated GFR (Non- 11.5 BUN/Creatinine Ratio 18.0 (10-20) Calcium Level 8.4 mg/dl (8.5-10.1) Total Bilirubin 0.5 mg/dl (0.2-1) Direct Bilirubin 0.3 mg/dl (0-0.2) Aspartate Amino Transf (AST/SGOT) 67 U/L (15-37) Alanine Aminotransferase (ALT/SGPT) 23 U/L (12-78) Alkaline Phosphatase 152 U/L (45-117) Total Protein 6.5 gm/dl (6.4-8.2) Albumin 2.4 gm/dl (3.4-5.0) Test 07/16/17 05:45 07/16/17 06:27 Red Blood Count 3.63 M/uL (4.2-5.4) Mean Corpuscular Volume 79.1 fL (80-100) Mean Corpuscular Hemoglobin 25.1 pg (25-34) Mean Corpuscular Hemoglobin Concent 31.7 g/dl (32-36) RDW Standard Deviation 52.2 fL (36.4-46.3) RDW Coefficient of Variation 18.0 % (11.5-14.5) Mean Platelet Volume 9.8 fL (7.4-10.4) Anion Gap 11.0 mmol/L (3-11) Est Creatinine Clear Calc Drug Dose 17.5 ml/min Estimated GFR () 15.0 Estimated GFR (Non- 12.9 BUN/Creatinine Ratio 20.1 (10-20) Calcium Level 8.4 mg/dl (8.5-10.1) Bedside Glucose 113 mg/dl (70-90) Allergies Coded Allergies: No Known Allergies (Verified , 07/09/17) Medications Current Inpatient Medications Medications (Trade) Dose Ordered Sig/Dajuan Route Start Time Stop Time Status Last Admin Dose Admin Lidocaine (Lidoderm Patch 5%) 1 patch QAM TD 07/10/17 09:00 08/09/17 08:59 07/16/17 08:39 1 PATCH Miscellaneous (Remove Lidoderm Patch) 1 ea DAILY@21 N/A 07/09/17 21:00 08/08/17 20:59 07/15/17 20:44 1 EA Amiodarone HCl (Cordarone Tab) 200 mg DAILY PO 07/10/17 09:00 08/09/17 08:59 07/16/17 08:36 200 MG Atorvastatin Calcium (Lipitor Tab) 40 mg DAILY PO 07/10/17 09:00 08/09/17 08:59 07/16/17 08:40 40 MG Clopidogrel Bisulfate (plAVix TAB) 75 mg DAILY PO 07/10/17 09:00 08/09/17 08:59 07/16/17 08:40 75 MG Gabapentin (Neurontin Cap) 300 mg BID PO 07/09/17 21:00 08/08/17 20:59 07/16/17 08:35 300 MG Insulin Glargine (Lantus Solostar Pen) 15 units QAM SC 07/10/17 09:00 08/09/17 08:59 07/16/17 08:38 15 UNITS Insulin Glargine (Lantus Solostar Pen) 20 units QPM SC 07/09/17 21:00 08/08/17 20:59 07/15/17 21:00 20 UNITS Metoprolol Tartrate (Lopressor Tab) 50 mg BID PO 07/09/17 21:00 08/08/17 20:59 07/16/17 08:36 50 MG Nitroglycerin (Nitrostat Tab) 0.4 mg UD PRN UT 07/09/17 11:00 08/08/17 10:59 Sodium Bicarbonate (Sodium Bicarbonate Tab) 650 mg BID PO 07/09/17 21:00 08/08/17 20:59 07/16/17 08:36 650 MG Multivitamins/ Minerals (Multivitamin W/ Minerals Tab) 1 tab DAILY PO 07/10/17 09:00 08/09/17 08:59 07/16/17 08:35 1 TAB Insulin Aspart (novoLOG ASPART) SLIDING SCALE G... ACHS SC 07/09/17 11:00 08/08/17 10:59 07/16/17 08:38 1 UNITS Glucose (Glucose 40% Gel) 15-30 GRAMS 15 GRAMS... UD PRN PO 07/09/17 12:00 08/08/17 11:59 Glucose (Glucose Chew Tab) 4-8 Tablets 4 Tabl... UD PRN PO 07/09/17 12:00 08/08/17 11:59 Dextrose (Dextrose 50% 50ML Syringe) 25-50ML OF 50% DW IV FOR... UD PRN IV 07/09/17 12:00 08/08/17 11:59 07/14/17 13:10 25 ML Glucagon (Glucagon Inj) 1 mg UD PRN SQ 07/09/17 12:00 08/08/17 11:59 Mometasone Furoate/ Formoterol Fumar (Dulera 100-5 Mcg/Act) 2 puffs BID INH 07/11/17 09:00 08/10/17 08:59 07/16/17 08:40 2 PUFFS Ferrous Gluconate (Ferrous Gluconate Tab) 324 mg QAM PO 07/11/17 14:00 08/10/17 13:59 07/16/17 08:35 324 MG Polyethylene (Miralax Powder Packet) 17 gm BID PO 07/12/17 12:45 08/08/17 12:44 07/16/17 08:39 17 GM Senna (Senokot Tab) 17.2 mg QAM PO 07/12/17 12:45 08/11/17 12:44 07/16/17 08:35 17.2 MG Bisacodyl (Dulcolax Supp) 10 mg Q12H PRN MT 07/12/17 11:00 08/11/17 10:59 Nystatin (Mycostatin Susp) 5 ml QID PO 07/12/17 12:45 07/22/17 12:44 07/16/17 08:39 5 ML Levofloxacin (Levaquin Tab) 500 mg Q2D@1100 PO 07/13/17 14:45 07/20/17 14:44 07/15/17 11:05 500 MG Albuterol/ Ipratropium (Duoneb) 3 ml QIDR PRN INH 07/14/17 12:00 08/13/17 11:59 07/15/17 22:18 3 ML Oxycodone HCl (Roxicodone Immediate Rel Tab) 5 mg Q6H PRN PO 07/14/17 15:00 07/28/17 14:59 07/16/17 08:39 5 MG Docusate Sodium (coLACE CAP) 100 mg BID PO 07/14/17 20:00 08/13/17 19:59 07/16/17 08:40 100 MG Sodium Chloride 1,000 ml @ 80 mls/hr [id number] IV 07/16/17 10:15 07/16/17 22:44 Sodium Biphosphate/ Sodium Phosphate (Fleet Enema) 132 ml NOW ONCE MT 07/16/17 10:30 07/16/17 10:31 Impression (1) Fall in home (2) Fracture of right ulnar styloid (3) 3 ribs fx from fell, 2 recent fells in 2 days, shoulder pain (4) ARF (acute renal failure) (5) Chronic kidney disease, stage 4 (severe) (6) Hyponatremia (7) Anemia (8) Hypertension (9) Diabetes (10) COPD (chronic obstructive pulmonary disease) (11) Narcotic-induced nausea and vomiting Mrs. Chappell was admitted following a mechanical fall. She suffered three rib fractures. Mrs. Chappell has developed narcotic associated nausea. She is now clinically dehydrated. Creatinine has risen from 2.8 to 3.8 and patient has mild hyponatremia. Urinalysis shows high specific gravity and urine sodium is low c/w intravascular volume contraction. Renal US revealed 9 cm kidneys w/ cortical thinning. There was no obstruction. JVD is likely a manifestation of pulmonary disease. Recommendations ACUTE KIDNEY INJURY: -- Remains clinically volume contracted. -- Continue to hold Furosemide -- Recommend gentle hydration w/ 0.9 NS at 80 cc/hr -- Monitor serial PRP CHRONIC KIDNEY DISEASE: -- Baseline creatinine has been 2.8 -- Renal US report 07/14: 9 cm kidneys w/ cortical thinning. No stone/mass/ obstruction HYPONATREMIA: -- Serum sodium is stable. -- Pain and narcotic use may be contributing to high ADH ANEMIA: -- Stable. If Hgb trends downward will consider checking iron stores and providing IV iron therapy RIB FRACTURES: -- Pain improved following nerve block 07/14
[2017-07-16] MEDS ORDERED: SOD PHOSPHATE/SOD BIPHOSPHATE ENEMA 132 ML BTL PR ONE (10:30)
[2017-07-16] MEDS ORDERED: BISACODYL 5 MG TABEC PO ONE (14:37)
--- NOTE | 2017-07-16 14:54 | Orthopedic Progress Note ---
Orthopedic Progress Note Date of Service Jul 16, 2017. Subjective Reports: feeling well, pain controlled w PO medications, Denies: complaints, chest pain, SOB, nausea / vomiting, light headedness, calf pain Additional Notes: F/u right wrist fracture, patient states her pain is controlled well. Objective N/V intact, capillary refill less than 2 sec. Skin in tact, no abrasions, ulcers, open skin. + ecchymosis, is able to wiggle fingers. No swelling. Date Time Temp Pulse Resp B/P (MAP) Pulse Ox O2 Delivery O2 Flow Rate FiO2 07/16/17 12:00 Room Air 07/16/17 11:04 37.2 76 20 117/79 (92) 92 Room Air 07/16/17 08:00 36.6 80 20 114/67 (83) 95 Room Air 07/16/17 08:00 Room Air 07/16/17 04:00 Nasal Cannula 2.0 07/16/17 03:18 36.4 73 20 133/68 (89) 96 Nasal Cannula 2.0 07/16/17 00:21 36.4 72 20 131/82 (98) 91 Nasal Cannula 2.0 07/15/17 23:59 Nasal Cannula 2.0 07/15/17 22:19 65 18 92 Nasal Cannula 2.0 07/15/17 20:51 82 20 146/82 (103) 97 Nasal Cannula 2.0 07/15/17 20:45 85 Room Air 07/15/17 20:00 94 Room Air 07/15/17 19:07 36.6 74 20 126/71 (89) 94 Room Air 07/15/17 16:00 93 Room Air 07/15/17 15:48 36.4 61 18 134/75 (94) 93 Room Air Laboratory Results 24 Hours: Test 07/15/17 22:28 07/16/17 05:45 White Blood Count 10.39 K/uL Red Blood Count 3.66 M/uL Hemoglobin 9.1 g/dL 9.1 g/dL Hematocrit 28.8 % 28.7 % Mean Corpuscular Volume 78.7 fL Mean Corpuscular Hemoglobin 24.9 pg Mean Corpuscular Hemoglobin Concent 31.6 g/dl Platelet Count 344 K/uL Mean Platelet Volume 9.7 fL Neutrophils (%) (Auto) 86.3 % Lymphocytes (%) (Auto) 6.0 % Monocytes (%) (Auto) 7.2 % Eosinophils (%) (Auto) 0.1 % Basophils (%) (Auto) 0.1 % Neutrophils # (Auto) 8.97 K/uL Lymphocytes # (Auto) 0.62 K/uL Monocytes # (Auto) 0.75 K/uL Eosinophils # (Auto) 0.01 K/uL Basophils # (Auto) 0.01 K/uL Assessment & Plan Assessment: Right distal radius fracture Plan: Elevation and ice to the right wrist for now. Xrays today show position of distal radius/ ulna fractures acceptable and unchanged from 07/08/17. Short arm cast applied today. Follow up with Dr. Orosco 3-4 weeks.
--- NOTE | 2017-07-16 15:30 | DIAGNOSTIC IMAGING REPORT ---
KUB HISTORY: Acute generalized abdominal pain Severe constipation, abdominal pain, possible ileus COMPARISON: CT abdomen and pelvis 07/09/2017. FINDINGS: There is moderate gaseous distention of the colon. Moderate stool volume is noted within the cecum and ascending colon. Portion of the right lateral abdomen is excluded from the [id number]. A catheter projects over the left midabdomen. Bowel gas pattern is nonobstructive. There is no organomegaly. No renal calculi. No ureteral calculi. No pneumoperitoneum or pneumatosis. No fracture. IMPRESSION: 1. Nonobstructive bowel gas pattern. 2. Moderate gaseous distention of the colon. Electronically signed by: Parker Velásquez M.D. 07/16/2017 3:29 PM Dictated Date/Time: 07/16/2017 3:21 PM
[2017-07-16 16:04] LABS: VEN BLD GAS O2 SATURATION 67.7 %
[2017-07-16] MEDS ORDERED: WARFARIN SOD 5 MG TAB PO ONE (19:00)
--- NOTE | 2017-07-16 21:53 | SURGERY PROGRESS NOTE ---
DATE: 07/16/2017 Mr. Chappell was seen today. Two days ago, I did a thoracoscopic drainage of a significant left hemothorax and did a pleural block and placed a PleurX catheter. Her drainage is actually very little. She is still complaining of pain in her chest tube site. She is definitely better than she was preoperatively. I have encouraged her to walk as much as possible. We will probably pull this PleurX out in the next day or two. All in all, I am quite happy with Mr. Chappell.
[2017-07-17] VITALS (11 sets, daily range): BP systolic 111–148; BP diastolic 58–78; PULSE 69–98; TEMP 36.3–37.3; O2SAT 79–99
[2017-07-17 07:01] LABS: HEMATOCRIT 30.4 % (37-47)
[2017-07-17 07:12] LABS: INR 1.2 (0.9-1.1); PROTHROMBIN TIME (PATIENT) 12.2 SECONDS (9.0-12.0)
[2017-07-17 07:26] LABS: BUN/CREATININE RATIO 18.6 (10-20); CALCIUM 8.5 mg/dl (8.5-10.1); CREATININE 3.3 mg/dl (0.60-1.20); POTASSIUM 3.8 mmol/L (3.5-5.1)
[2017-07-17] MEDS: MOMETASONE/FORMOTEROL (DULERA) INH INH SCH ×2 (07:58→21:18)
[2017-07-17] MEDS: DOCUSATE SODIUM 100 MG CAP PO SCH ×2 (07:58→21:00)
[2017-07-17] MEDS: GABAPENTIN 300 MG CAP PO SCH ×2 (07:59→21:19)
[2017-07-17] MEDS: METOPROLOL TARTRATE 50 MG TAB PO SCH ×2 (07:59→21:18)
[2017-07-17] MEDS: CLOPIDOGREL BISULFATE 75 MG TAB PO SCH (07:59)
[2017-07-17] MEDS: FERROUS GLUCONATE 324 MG TAB PO SCH (07:59)
[2017-07-17] MEDS: ATORVASTATIN 40 MG TAB PO SCH (07:59)
[2017-07-17] MEDS: AMIODARONE 200 MG TAB PO SCH (07:59)
[2017-07-17] MEDS: LIDODERM (LIDOCAINE) PATCH 5% TD SCH (08:00)
[2017-07-17] MEDS: SENNA 8.6 MG TAB PO SCH (08:00)
[2017-07-17] MEDS: POLYETHYLENE (MIRALAX) 17 GM PACK PO SCH ×2 (08:00→21:00)
[2017-07-17] MEDS: CEROVITE ADV FORMULA TAB PO SCH (08:00)
[2017-07-17] MEDS: SODIUM BICARBONATE 650 MG TAB PO SCH (08:00)
[2017-07-17] MEDS: NYSTATIN SUSP 500,000 U/5 ML UDC PO SCH ×4 (08:01→21:19)
[2017-07-17] MEDS: BISACODYL 5 MG TABEC PO SCH (08:03)
[2017-07-17] MEDS: INSULIN ASPART 100 UNITS/ML 3 ML PEN SC SCH ×5 (08:04→21:00)
[2017-07-17] MEDS: INSULIN GLARGINE SOLOSTAR 100 UNITS/ML 3 ML PEN SC SCH ×2 (08:13→21:29)
--- NOTE | 2017-07-17 09:07 | Progress Note ---
Subjective Date of Service: Jul 17, 2017. Subjective Pt evaluation today including: conversation w/ patient, chart review, lab review Voiding: hodges catheter in place (patent, draining clear, yellow urine) 71 yo female s/p difficult hodges placement for ARF. Cr remains 3.3 this morning. No evidence of obstruction on renal u/s. The pt does not recall having the hodges placed by Dr. Dorsey. Pt c/o some rib pain this morning. Denies chest pain or SOB. Problem List Medical Problems: (1) Acute coronary syndrome Status: Acute (2) Acute electrocardiogram changes Status: Acute (3) Ankle pain Status: Acute (4) Chronic kidney disease Status: Acute (5) Colitis Status: Acute (6) Fall in home Status: Acute (7) Fracture of rib of left side Status: Acute (8) Fracture of right distal radius Status: Acute (9) Fracture of right ulnar styloid Status: Acute (10) Frequent falls Status: Acute (11) Hemothorax Status: Acute (12) NSTEMI (non-ST elevated myocardial infarction) Status: Acute (13) Right wrist fracture Status: Acute Review of Systems Constitutional: No fever, No chills Respiratory: No shortness of breath Cardiac: No chest pain Abdomen: No pain, No nausea, No vomiting Female : No hematuria Heme: No abnormal bleeding/bruising Objective Vital Signs Date Time Temp Pulse Resp B/P (MAP) Pulse Ox O2 Delivery O2 Flow Rate FiO2 07/17/17 07:33 36.3 78 20 121/64 (83) 92 Room Air 07/17/17 04:00 Nasal Cannula 1.5 07/17/17 03:55 37.3 79 18 111/58 (75) 95 07/17/17 00:37 37.1 76 18 135/77 (96) 95 1.5 07/17/17 00:00 Nasal Cannula 1.5 07/16/17 20:15 90 Room Air 07/16/17 19:42 36.8 78 20 120/71 (87) 91 Room Air 07/16/17 16:30 92 Room Air 07/16/17 15:44 37.2 73 18 110/71 (84) 92 Room Air 07/16/17 12:00 Room Air 07/16/17 11:04 37.2 76 20 117/79 (92) 92 Room Air Physical Exam General Appearance: no apparent distress Eyes: normal inspection ENT: hearing grossly normal Neck: no JVD Respiratory/Chest: no respiratory distress, no accessory muscle use Cardiovascular: no JVD Extremities: normal inspection Neurologic/Psychiatric: alert, normal mood/affect, oriented x 3 Skin: normal color Laboratory Results Last 24 Hours Test 07/16/17 11:02 07/16/17 15:41 07/16/17 16:19 07/16/17 19:47 Bedside Glucose 190 mg/dl 122 mg/dl 127 mg/dl Venous Blood pH 7.35 Venous Blood Partial Pressure CO2 44 mmHg Venous Blood Partial Pressure O2 38 mmHg Venous Blood HCO3 24 mmol/L Venous Blood Oxygen Saturation 67.7 % Venous Blood Base Excess -2.0 mEq/L Ammonia 14.0 umol/L Test 07/17/17 06:29 07/17/17 06:34 Bedside Glucose 113 mg/dl Hemoglobin 9.6 g/dL Hematocrit 30.4 % Prothrombin Time 12.2 SECONDS Prothromb Time International Ratio 1.2 Sodium Level 132 mmol/L Potassium Level 3.8 mmol/L Chloride Level 100 mmol/L Carbon Dioxide Level 25 mmol/L Anion Gap 8.0 mmol/L Blood Urea Nitrogen 62 mg/dl Creatinine 3.30 mg/dl Est Creatinine Clear Calc Drug Dose 17.8 ml/min Estimated GFR () 15.4 Estimated GFR (Non- 13.3 BUN/Creatinine Ratio 18.6 Random Glucose 102 mg/dl Calcium Level 8.5 mg/dl Assessment and Plan A/P: S/p difficult hodges placement AFVSS. Pt OK for trial of void when hodges catheter no longer needed by primary service or nephrology. No further management at this time. Recall PRN issues. Thanks for allowing us to participate in this pt's care. Will arrange for outpatient f/u with Dr. Dorsey in 1month. Continued [facility] stay due to: inadequate oral pain control, ambulation difficulties, multiple IV medications needed Discharge planning: uncertain
--- NOTE | 2017-07-17 10:28 | Clinical Documentation Query ---
CLINICAL DOCUMENTATION QUERY 71-y/o female who has undergone left thorascopic drainage of left lung pleura. Post operatively this patient required prolonged ventilator management. In your clinical opinion is this patient being managed for: ( ) Expected acute pulmonary insufficiency following surgery requiring extended mechanical ventilation and ICU hemodynamic monitoring. ( x ) Not Agree. This was an unexpected complication ( ) Other explanation of clinical findings (Please Explain) ( ) Unable to determine (Please Define) ( ) Need to Discuss The medical record reflects the following clinical findings, treatment, and risk factors. Clinical Indicators: As above. Treatment: ICU management post op, Mechanical ventilation, Risk Factors: Age, pain associated with rib fractures, chronic respiratory failure, copd, chf, and obsesity. Please clarify and document your clinical opinion in the progress notes and discharge summary. Terms such as "probable", "suspected", "likely", "questionable", "possible", or "still to be ruled out" are acceptable. IF IN AGREEMENT, YOU MUST DOCUMENT ABOVE DIAGNOSTIC STATEMENT IN DAILY PROGRESS NOTES AND DISCHARGE SUMMARY. This document is not part of the patient's record. Unlike respiratory insufficiency which is considered a sign or symptom, pulmonary insufficiency is considered a disorder involving the lung. Pulmonary insufficiency occurs when the lungs are unable to function properly and maintain the normal processes of oxygen uptake and carbon dioxide removal. The combination of underlying pulmonary disease and the lingering effects of anesthesia often result in pulmonary insufficiency following surgery. Post-operatively the patient's O2 saturation drops, their pulse and respiratory rates increase and in some instances they develop altered mental status from the hypoxia. Fortunately, these patients tend to respond quite well to aggressive treatment. Of note: there are two specific code assignments for post op pulmonary insufficiency, J95.1 and J95.2 - it's the 4th character that identifies whether the patient underwent thoracic surgery. Post-op respiratory failure and post-op pulmonary insufficiency are not the same; review the clinical presentation closely then seek clarification of the clinically appropriate diagnosis for your patient. *Acute respiratory failure following surgery is considered a patient safety indicator. *J95.821 Acute Postprocedural Respiratory Failure *J95.822 Acute on Chronic Postprocedural Respiratory Failure Pulmonary insufficiency is considered to be less severe than Respiratory Failure Pulmonary insufficiency that is not quickly recognized may lead to Respiratory Failure Aggressive identification and treatment of pulmonary insufficiency may prevent decompensation to failure. Thank You, Jared Hatch, ALICIA [phone]
--- NOTE | 2017-07-17 10:37 | Nephrology Progress Note ---
Nephrology Progress Note Date of Service Jul 17, 2017. Chief Complaint Acute on CKD, hyponatremia Subjective Mrs. Chappell was seen & examined in the PCU this morning. She reports L chest discomfort but notes that it is much improved since the nerve block. She voices no new medical concerns. Review of Systems Constitutional: No fever Cardiovascular: No angina Respiratory: No productive cough, No dyspnea at rest Abdomen: No pain, No nausea, No vomiting Extremities: No leg edema A complete review of systems was performed. Pertinent positives are noted above. All other systems are negative. Vital Signs Last 8 Hrs Date Time Temp Pulse Resp B/P (MAP) Pulse Ox O2 Delivery O2 Flow Rate FiO2 07/17/17 08:00 Room Air 07/17/17 07:33 36.3 78 20 121/64 (83) 92 Room Air 07/17/17 04:00 Nasal Cannula 1.5 07/17/17 03:55 37.3 79 18 111/58 (75) 95 Last Recorded Weight Weight (Kilograms): 93.500 Physical Exam General Appearance: no apparent distress Head: normocephalic (temporal muscle wasting), atraumatic Eyes: PERRL, EOMI Neck: no adenopathy Respiratory/Chest: lungs clear, no respiratory distress Cardiovascular: regular rate, rhythm Abdomen/GI: normal bowel sounds, non tender, soft Extremities/Musculoskelatal: no calf tenderness, no pedal edema Neurologic/Psych: alert, oriented x 3 Family History Diabetes mellitus FH: gallbladder disease FH: heart disease FH: lung disease FHx: cancer Hypertension Negative for CKD / ESRD Social History Drug Use: none Marital Status: 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) Laboratory Results Past 24 Hours 07/17/17 06:34 07/17/17 06:34 Test 07/16/17 11:02 07/16/17 15:41 07/16/17 16:19 07/16/17 19:47 Bedside Glucose 190 mg/dl (70-90) 122 mg/dl (70-90) 127 mg/dl (70-90) Venous Blood pH 7.35 (7.36-7.41) Venous Blood Partial Pressure CO2 44 mmHg (38.0-50.0) Venous Blood Partial Pressure O2 38 mmHg Venous Blood HCO3 24 mmol/L Venous Blood Oxygen Saturation 67.7 % Venous Blood Base Excess -2.0 mEq/L Ammonia 14.0 umol/L (11-32) Test 07/17/17 06:29 07/17/17 06:34 Bedside Glucose 113 mg/dl (70-90) Prothrombin Time 12.2 SECONDS (9.0-12.0) Prothromb Time International Ratio 1.2 (0.9-1.1) Anion Gap 8.0 mmol/L (3-11) Est Creatinine Clear Calc Drug Dose 17.8 ml/min Estimated GFR () 15.4 Estimated GFR (Non- 13.3 BUN/Creatinine Ratio 18.6 (10-20) Calcium Level 8.5 mg/dl (8.5-10.1) Allergies Coded Allergies: No Known Allergies (Verified , 07/09/17) Medications Current Inpatient Medications Medications (Trade) Dose Ordered Sig/Dajuan Route Start Time Stop Time Status Last Admin Dose Admin Lidocaine (Lidoderm Patch 5%) 1 patch QAM TD 07/10/17 09:00 08/09/17 08:59 07/17/17 08:00 1 PATCH Miscellaneous (Remove Lidoderm Patch) 1 ea DAILY@21 N/A 07/09/17 21:00 08/08/17 20:59 07/16/17 20:15 1 EA Amiodarone HCl (Cordarone Tab) 200 mg DAILY PO 07/10/17 09:00 08/09/17 08:59 07/17/17 07:59 200 MG Atorvastatin Calcium (Lipitor Tab) 40 mg DAILY PO 07/10/17 09:00 08/09/17 08:59 07/17/17 07:59 40 MG Clopidogrel Bisulfate (plAVix TAB) 75 mg DAILY PO 07/10/17 09:00 08/09/17 08:59 07/17/17 07:59 75 MG Gabapentin (Neurontin Cap) 300 mg BID PO 07/09/17 21:00 08/08/17 20:59 07/17/17 07:59 300 MG Insulin Glargine (Lantus Solostar Pen) 15 units QAM SC 07/10/17 09:00 08/09/17 08:59 07/17/17 08:13 15 UNITS Insulin Glargine (Lantus Solostar Pen) 20 units QPM SC 07/09/17 21:00 08/08/17 20:59 07/16/17 20:23 20 UNITS Metoprolol Tartrate (Lopressor Tab) 50 mg BID PO 07/09/17 21:00 08/08/17 20:59 07/17/17 07:59 50 MG Nitroglycerin (Nitrostat Tab) 0.4 mg UD PRN UT 07/09/17 11:00 08/08/17 10:59 Multivitamins/ Minerals (Multivitamin W/ Minerals Tab) 1 tab DAILY PO 07/10/17 09:00 08/09/17 08:59 07/17/17 08:00 1 TAB Insulin Aspart (novoLOG ASPART) SLIDING SCALE G... ACHS SC 07/09/17 11:00 08/08/17 10:59 07/16/17 12:30 5 UNITS Glucose (Glucose 40% Gel) 15-30 GRAMS 15 GRAMS... UD PRN PO 07/09/17 12:00 08/08/17 11:59 Glucose (Glucose Chew Tab) 4-8 Tablets 4 Tabl... UD PRN PO 07/09/17 12:00 08/08/17 11:59 Dextrose (Dextrose 50% 50ML Syringe) 25-50ML OF 50% DW IV FOR... UD PRN IV 07/09/17 12:00 08/08/17 11:59 07/14/17 13:10 25 ML Glucagon (Glucagon Inj) 1 mg UD PRN SQ 07/09/17 12:00 08/08/17 11:59 Mometasone Furoate/ Formoterol Fumar (Dulera 100-5 Mcg/Act) 2 puffs BID INH 07/11/17 09:00 08/10/17 08:59 07/17/17 07:58 2 PUFFS Ferrous Gluconate (Ferrous Gluconate Tab) 324 mg QAM PO 07/11/17 14:00 08/10/17 13:59 07/17/17 07:59 324 MG Polyethylene (Miralax Powder Packet) 17 gm BID PO 07/12/17 12:45 08/08/17 12:44 07/17/17 08:00 17 GM Senna (Senokot Tab) 17.2 mg QAM PO 07/12/17 12:45 08/11/17 12:44 07/17/17 08:00 17.2 MG Bisacodyl (Dulcolax Supp) 10 mg Q12H PRN MI 07/12/17 11:00 08/11/17 10:59 Nystatin (Mycostatin Susp) 5 ml QID PO 07/12/17 12:45 07/22/17 12:44 07/17/17 08:01 5 ML Levofloxacin (Levaquin Tab) 500 mg Q2D@1100 PO 07/13/17 14:45 07/20/17 14:44 07/15/17 11:05 500 MG Albuterol/ Ipratropium (Duoneb) 3 ml QIDR PRN INH 07/14/17 12:00 08/13/17 11:59 07/15/17 22:18 3 ML Docusate Sodium (coLACE CAP) 100 mg BID PO 07/14/17 20:00 08/13/17 19:59 07/17/17 07:58 100 MG Bisacodyl (Dulcolax Tab) 10 mg DAILY PO 07/17/17 09:00 08/16/17 08:59 07/17/17 08:03 10 MG Warfarin Sodium (Coumadin Tab) 5 mg DAILY@16 PO 07/17/17 16:00 08/16/17 15:59 Acetaminophen/ Hydrocodone Bitart ([place] 5/325 Tab) 1 tab Q6H PRN PO 07/16/17 20:00 07/30/17 19:59 Impression (1) Fall in home (2) Fracture of right ulnar styloid (3) 3 ribs fx from fell, 2 recent fells in 2 days, shoulder pain (4) ARF (acute renal failure) (5) Chronic kidney disease, stage 4 (severe) (6) Hyponatremia (7) Anemia (8) Hypertension (9) Diabetes (10) COPD (chronic obstructive pulmonary disease) (11) Narcotic-induced nausea and vomiting Mrs. Chappell was admitted following a mechanical fall. She suffered three rib fractures. Mrs. Chappell has developed narcotic associated nausea and clinical dehydration. Creatinine zach from 2.8 to 3.8 and patient developed hyponatremia. Urinalysis shows high specific gravity and urine sodium is low c/ w intravascular volume contraction. Renal US revealed 9 cm kidneys w/ cortical thinning. There was no obstruction. JVD is likely a manifestation of pulmonary disease. Recommendations ACUTE KIDNEY INJURY: -- Remains clinically volume contracted. -- Continue to hold Furosemide -- Recommend gentle hydration w/ 0.9 NS at 80 cc/hr -- Monitor serial PRP CHRONIC KIDNEY DISEASE: -- Baseline creatinine has been 2.8 -- Renal US report 07/14: 9 cm kidneys w/ cortical thinning. No stone/mass/ obstruction HYPONATREMIA: -- Serum sodium is improved -- Pain and narcotic use may be contributing to high ADH -- Will monitor ANEMIA: -- Stable. If Hgb trends downward will consider checking iron stores and providing IV iron therapy RIB FRACTURES: -- Pain improved following nerve block 07/14
--- NOTE | 2017-07-17 10:53 | SURGERY PROGRESS NOTE ---
DATE: 07/17/2017 Ms. Chappell was seen today. She is sitting up in a chair. She is on room air. Her PleurX catheter was drained for 300 mL of a light bloody fluid. Ms. Chappell really needs occupational therapy and physical therapy. She still complains of intense pain, but I think it is a bit better. I think that she is hopefully a candidate for a rehabilitation stay to get back up on her feet. We will continue to monitor the PleurX catheter.
[2017-07-17] MEDS: HYDROCODONE/ACETAMOPHEN 5/325MG TAB PO PRN ×2 (11:05→17:20)
[2017-07-17] MEDS: LEVOFLOXACIN 500 MG TAB PO SCH (11:05)
--- NOTE | 2017-07-17 15:39 | Hospitalist Progress Note ---
Hospitalist Progress Note Date of Service Jul 17, 2017. (Cristina Calderon ., LISANDROC) Subjective Pt evaluation today including: conversation w/ patient, physical exam, chart review, lab review, review of inpatient medication list PO Intake: Tolerating PO diet Voiding: hodges catheter in place The patient reports feeling relatively well. She still complains of left rib pain but states that the [place] has been helping. The pain is worse with movement. Her right wrist pain is also improved. She reports a productive cough. She denies any shortness of breath. She does report feeling fatigued but is more alert today. She complains of generalized weakness. The patient denies fevers, chills, sweats, chest pain, palpitations, claudication, wheezing , shortness of breath, nausea, vomiting, abdominal pain, dysuria, hematuria, urinary retention, paralysis, weakness, numbness and tingling. Additional Comments: See HPI for pertinent positives and negatives. All other systems reviewed and negative. (Cristina Calderon, BUSHRA-C) Objective Vital Signs Date Time Temp Pulse Resp B/P (MAP) Pulse Ox O2 Delivery O2 Flow Rate FiO2 07/17/17 12:00 Room Air 07/17/17 11:43 36.8 79 19 129/62 (84) 96 Room Air 07/17/17 08:00 Room Air 07/17/17 07:33 36.3 78 20 121/64 (83) 92 Room Air 07/17/17 04:00 Nasal Cannula 1.5 07/17/17 03:55 37.3 79 18 111/58 (75) 95 07/17/17 00:37 37.1 76 18 135/77 (96) 95 1.5 07/17/17 00:00 Nasal Cannula 1.5 07/16/17 20:15 90 Room Air 07/16/17 19:42 36.8 78 20 120/71 (87) 91 Room Air 07/16/17 16:30 92 Room Air 07/16/17 15:44 37.2 73 18 110/71 (84) 92 Room Air (Cristina Calderon, BUSHRA-C) Physical Exam Notes: General appearance: +Obese. Well-developed, well-nourished, no apparent distress Head: Normocephalic, atraumatic Eyes: Normal inspection, PERRL, EOMI ENT: +Dry oral mucosa. Normal ENT inspection, hearing grossly normal, pharynx normal Neck: Supple, no JVD, trachea midline Respiratory/Chest: +Decreased breath sounds in bases. Lungs clear to auscultation, no respiratory distress Cardiovascular: +Irregularly irregular, rate controlled. Systolic murmur. No gallop Abdomen/GI: Normal bowel sounds, non-tender, soft Extremities/Musculoskeletal: +Trace pitting edema. Right forearm in short arm cast. No calf tenderness Neurological/Psych: +Decreased sensation right fingers. Alert, normal mood/ affect, oriented x 3 Skin: +Ecchymoses right inner elbow, right fingers. Normal color, warm/dry, no rash (Cristina Calderon ., BUSHRA-C) Laboratory Results Last 24 Hours Test 07/16/17 15:41 07/16/17 16:19 07/16/17 19:47 07/17/17 06:29 Venous Blood pH 7.35 Venous Blood Partial Pressure CO2 44 mmHg Venous Blood Partial Pressure O2 38 mmHg Venous Blood HCO3 24 mmol/L Venous Blood Oxygen Saturation 67.7 % Venous Blood Base Excess -2.0 mEq/L Ammonia 14.0 umol/L Bedside Glucose 122 mg/dl 127 mg/dl 113 mg/dl Test 07/17/17 06:34 07/17/17 11:08 Hemoglobin 9.6 g/dL Hematocrit 30.4 % Prothrombin Time 12.2 SECONDS Prothromb Time International Ratio 1.2 Sodium Level 132 mmol/L Potassium Level 3.8 mmol/L Chloride Level 100 mmol/L Carbon Dioxide Level 25 mmol/L Anion Gap 8.0 mmol/L Blood Urea Nitrogen 62 mg/dl Creatinine 3.30 mg/dl Est Creatinine Clear Calc Drug Dose 17.8 ml/min Estimated GFR () 15.4 Estimated GFR (Non- 13.3 BUN/Creatinine Ratio 18.6 Random Glucose 102 mg/dl Calcium Level 8.5 mg/dl Bedside Glucose 117 mg/dl (Cristina Calderon ., PA-C) Assessment and Plan 71 y/o female with a history a-fib, CAD, NH s/p stent, HTN, HLD, chronic diastolic CHF, COPD, DM II, CKD stage IV, SHI, anxiety/depression, and Henson' s esophagus who presented following multiple falls and fractures. S/p multiple falls, multiple fractures hemothorax--improving -Displaced left rib fractures (ribs 8-9), nondisplaced left rib fracture (rib 10 ), right distal radial fracture, nondisplaced transverse process T10 fracture -Head CT, cervical spine CT, CT abdomen/pelvis, shoulder x-ray no acute disease -Ortho surgery consulted, appreciate recs: Placed in short arm cast 07/16, F/u Dr. Orosco 3-4 weeks -Thoracic surgery following, appreciate recs: Pain control, aggressive pulmonary toilet, incentive spirometry. Hemothorax drained for 700 cc on . PleurX in place. Nerve block from ribs 2-11. PleurX drained 300 cc 07/17. -Continue lidocaine patch. Oxycodone changed to [place] due to lethargy, more alert today -Repeat CXR 07/16 shows PleurX, no pneumothorax. Stable from prior study Constipation--improving -Likely secondary to narcotics: Senokot qam and Miralax BID. -KUB shows nonobstructive bowel gas pattern. Moderate gaseous distention in colon. Moderate stool in cecum and ascending colon. -Continue Dulcolax tabs qd -Per nursing, pt had large bowel movement last night. Pt also reports another small BM this morning. Acute pulmonary insufficiency following surgery--resolved -Pt was initially not able to be extubated post surgery, transferred to ICU for vent support. Pt extubated late at night on 07/14, currently on room air. Later transferred to tele. Transfer to med/surg 07/17 Lethargy--resolving -VBG WNL -Ammonia WNL -Oxy changed as above Fevers, possible PNA--fevers resolved -D/C Zosyn -Continue with Levaquin 500 mg PO q48h (renal dosing, CrCl 15). Day #7 of abx -Urine and blood cultures negative Hyponatremia--stable -Sodium 132 on 07/17 -Repeat serum and urine osm 07/13 still low. Urine random sodium 5 -Urine osmolality 07/15 still low at 300 Acute renal failure on CKD stage IV--stable -Baseline creatine around 2.8-2.9 -Creatinine 3.30 on 07/17 -Nephrology consulted, appreciate recs: Continue to hold Lasix. Gentle IVF with NSS at 80 cc/hr -IVF stopped after pt developed some crackles and hypoxia -Hodges placed -Urology consulted, appreciate res: Can remove catheter for trial of voiding when ok with primary team. F/u Dr. Dorsey in 1 month Atrial fibrillation--stable, rate controlled -Continue amiodarone 200 mg PO qd -Thoracic surgery ok to resume warfarin -Warfarin 5 mg PO qd, monitor INR HTN, HLD, CAD, h/o NH s/p stent x 2--stable -Last ELAINE was on 11/17/2016 -Continue Lipitor 40 mg PO qd, Plavix 75 mg PO qd, Lopressor 50 mg PO BID Chronic diastolic CHF -CXR 07/13 shows pulmonary vascular prominence and bronchial wall cuffing increased from prior, suggesting volume overload. No costa pulmonary edema. -Lasix 60 mg IV x 1 on 07/13 -Hold Lasix per nephro recs DM II--HgbA1c 9.6 on 07/09 -Continue home Lantus 15 units SC qam and 20 units SC qpm -Insulin sliding scale -Check BSGs q ac and qhs COPD--wheezing resolved, could be secondary to COPD vs recent fluids -Continue Dulera 2 puffs inh BID -DuoNebs -Current smoker Oral candidiasis--stable/resolving -Continue nystatin solution 5 mL PO QID. Day #6 DVT prophylaxis -Warfarin -SCDs Code Status -Level III, FULL NO MECH VENTILATION Dispo -From home -PT/OT recommend rehab (Cristina Calderon ., PA-C) PA Physician Supervision Note: I interviewed and examined the patient. Discussed with Cristina Calderon PAC and agree with findings and plan as documented in the note. Any exceptions or clarifications are listed here: None. Pt presented after multiple falls and has a right wrist fracture thoracic spine fracture and a hemothorax Pt has not improved with pain control after procedure and now is agreeable to rehab vitals are stable left base of lung with decreased breath sounds, car is reg( despite h/o afib) S/p multiple falls, multiple fractures hemothorax--improving -Displaced left rib fractures (ribs 8-9), nondisplaced left rib fracture (rib 10 ), right distal radial fracture, nondisplaced transverse process T10 fracture -Thoracic surgery managing PleurX Hemothorax drained for 700 cc on 07/14.. Nerve block from ribs 2-11. PleurX drained 300 cc 07/17. -Continue lidocaine patch. Oxycodone changed to [place] due to lethargy, more alert since change Ortho placed in short arm cast 07/16, F/u Dr. Orosco 3-4 weeks, thoracic fracture no intervention needed Opiate associated Constipation Senokot qam and Miralax BID plus Dulcolax tabs qd Acute pulmonary insufficiency following surgery--resolved, Pt extubated late at night on 07/14, currently on room air. Fevers, possible PNA--fevers resolved -D/C Zosyn -Continue with Levaquin 500 mg PO q48h (renal dosing, CrCl 15). last dose Hyponatremia--stable Acute renal failure on CKD stage IV--stable -Baseline creatine around 2.8-2.9, still slightly above baseline -continue to hold Lasix. urinary retention concern for urethra stenosis-Hodges placed -Urology consulted, recommended trial of voiding when ok with primary team. F/ u Dr. Dorsey in 1 month Atrial fibrillation--stable, rate controlled amiodarone 200 mg PO qd resuming warfarin with CT surgery approval -Warfarin 5 mg PO qd, monitor INR HTN, HLD, CAD, h/o NH s/p stent x 2--stable -Last ELAINE was on 11/17/2016 Lipitor 40 mg PO qd, Plavix 75 mg PO qd, Lopressor 50 mg PO BID Chronic diastolic CHF, did have slight clinical worsening, or acute diastolic failure associated with ivf given for DEMETRA DM II--HgbA1c 9.6 on 07/09 Lantus 15 units SC qam and 20 units SC qpm, plus Insulin sliding scale COPD--wheezing resolved, maybe from acute diastolic heart failure -Continue Dulera 2 puffs inh BID -DuoNebs -Current smoker, councelled on cessation Oral candidiasis--stable/resolving nystatin solution 5 mL PO QID. DVT prophylaxis-Warfarin -SCDs Code Status -Level III, FULL NO MECH VENTILATION Dispo PT/OT recommend rehab. pt is agreeable Documented By: Joe Conrad (Joe Conrad M.D.)
[2017-07-17] MEDS: WARFARIN SOD 5 MG TAB PO SCH (15:52)
--- NOTE | 2017-07-17 17:04 | PROGRESS NOTE ---
DATE: 07/17/2017 ORTHOPEDIC HAND SURGERY PROGRESS NOTE SUBJECTIVE: Jesenia seen at bedside. She has no complaints in regards to her right wrist. OBJECTIVE: Right wrist exam shows a well-fitted cast. She has supple motion of the digits within the cast. There is no evidence of loosening of the cast. IMAGING DATA: Radiographs of the right wrist do show a slight increase in displacement of distal radius fracture compared to prior radiographs very mild shortening is seen. ASSESSMENT: One week status post right distal radius fracture. PLAN: At this point in time, will continue cast treatment. I discussed that her fracture has been shifted slightly, but I did not feel that is shifted enough significantly to warrant the risks of surgery, particularly given her other medical comorbidities. She will follow up with me in the office upon discharge.
--- NOTE | 2017-07-17 17:43 | Consultant Recommendations ---
Seed And Fertilizer Specialist Recommendations Date of Service Jul 17, 2017. Seed And Fertilizer Specialist Recommendations ACTIVITY RECOMMENDATIONS: * Avoid lifting anything. SPECIAL CARE INSTRUCTIONS: * Your cast should be left in place at all times. * Some drainage onto the dressing may occur. This is normal. * If the bandage feels excessively tight, you may loosen the elastic bandage. Then call the physician's office for further instructions. * If possible, keep your hand elevated above the level of your heart for the first 2 post operative days. You may use a sling if necessary. * You should move your fingers regularly (50-100 motions per hour) unless otherwise instructed. SPECIAL PRECAUTIONS: * If you notice increased drainage, fever over 101 degrees F. or severe, unremitting pain, call your physician/office at . * You may have been prescribed pain medication. If you experience nausea and/or skin rash, discontinue this medication and contact our office for an alternative medication. FOLLOW UP VISIT: If appointment is not already scheduled: Please call [facility] [place] to make a follow-up appointment for 1 week after discharge with Dr. Orosco at .
[2017-07-18] MEDS: CEROVITE ADV FORMULA TAB PO SCH (07:13)
[2017-07-18] MEDS: MOMETASONE/FORMOTEROL (DULERA) INH INH SCH ×2 (07:13→20:56)
[2017-07-18] MEDS: CLOPIDOGREL BISULFATE 75 MG TAB PO SCH (07:14)
[2017-07-18] MEDS: DOCUSATE SODIUM 100 MG CAP PO SCH ×2 (07:14→20:09)
[2017-07-18] MEDS: METOPROLOL TARTRATE 50 MG TAB PO SCH ×2 (07:14→20:56)
[2017-07-18] MEDS: BISACODYL 5 MG TABEC PO SCH (07:14)
[2017-07-18] MEDS: POLYETHYLENE (MIRALAX) 17 GM PACK PO SCH ×2 (07:14→20:09)
[2017-07-18] MEDS: SENNA 8.6 MG TAB PO SCH (07:15)
[2017-07-18] MEDS: AMIODARONE 200 MG TAB PO SCH (07:15)
[2017-07-18] MEDS: NYSTATIN SUSP 500,000 U/5 ML UDC PO SCH ×4 (07:15→20:56)
[2017-07-18] MEDS: FERROUS GLUCONATE 324 MG TAB PO SCH (07:15)
[2017-07-18] MEDS: GABAPENTIN 300 MG CAP PO SCH ×2 (07:15→20:56)
[2017-07-18 07:30] VITALS: BP 139/73; PULSE 63; TEMP 36.4; O2SAT 97
--- NOTE | 2017-07-18 08:32 | DIAGNOSTIC IMAGING REPORT ---
CHEST ONE VIEW PORTABLE HISTORY: hemothorax COMPARISON: Chest 07/16/2017. FINDINGS: Left-sided chest tube is unchanged in position and terminates in the left lung apex. Small left pleural effusion has decreased in size. Bilateral mid to lower lung zone linear densities persist and favor subsegmental atelectasis. Mild cardiomegaly, unchanged. No evidence for pulmonary edema. Left lower rib fractures are again noted. No pneumothorax. IMPRESSION: 1. Small left pleural effusion has decreased in size. The left chest tube is unchanged in position. 2. Left lower rib fractures are again noted. No pneumothorax. Electronically signed by: Richard Garcia M.D. 07/18/2017 8:30 AM Dictated Date/Time: 07/18/2017 8:29 AM
[2017-07-18] MEDS: INSULIN ASPART 100 UNITS/ML 3 ML PEN SC SCH ×4 (08:41→20:55)
[2017-07-18] MEDS: INSULIN GLARGINE SOLOSTAR 100 UNITS/ML 3 ML PEN SC SCH ×2 (08:43→20:54)
[2017-07-18] MEDS: ATORVASTATIN 40 MG TAB PO SCH (08:43)
[2017-07-18] MEDS: LIDODERM (LIDOCAINE) PATCH 5% TD SCH (08:43)
[2017-07-18 09:03] LABS: INR 1.4 (0.9-1.1); PROTHROMBIN TIME (PATIENT) 14.9 SECONDS (9.0-12.0)
--- NOTE | 2017-07-18 09:14 | SURGERY PROGRESS NOTE ---
DATE: 07/18/2017 DATE: 07/18/2017 Ms. Chapepll was seen today. She is sitting up and eating breakfast. She feels a bit better. She still is having a lot of pain, but her x-ray looks quite good. Her PleurX catheter was drained for about 250 mL of pink fluid. I think this is secondary to her hemothorax. She is on room air with good saturations. All in all I am happy with her, but we are having issues with her pain control although I think it is better. I think this patient needs aggressive rehabilitation not only for her ambulation and improvement of her activities of daily living but also for her right wrist as she has had a right wrist fracture. I think she is a good candidate for physical therapy and rehabilitation stay and I think she should improve.
[2017-07-18 09:25] LABS: BUN/CREATININE RATIO 16.9 (10-20); CALCIUM 8.5 mg/dl (8.5-10.1); CREATININE 2.95 mg/dl (0.60-1.20); POTASSIUM 3.6 mmol/L (3.5-5.1)
--- NOTE | 2017-07-18 10:41 | Nephrology Progress Note ---
Nephrology Progress Note Date of Service Jul 18, 2017. Chief Complaint Acute on CKD, hyponatremia Subjective Mrs. Chappell was seen & examined in her hospital room this morning. She appears a little brighter today. Her L sided chest discomfort is improved. Pleur-X catheter remains in place. She voices no new medical concerns. Review of Systems Constitutional: No fever Cardiovascular: No chest pain Respiratory: No dyspnea at rest Abdomen: No pain, No nausea, No vomiting Genitourinary - Female: No dysuria Extremities: No leg edema A complete review of systems was performed. Pertinent positives are noted above. All other systems are negative. Vital Signs Last 8 Hrs Date Time Temp Pulse Resp B/P (MAP) Pulse Ox O2 Delivery O2 Flow Rate FiO2 07/18/17 07:30 Room Air 07/18/17 07:30 36.4 63 16 139/73 (95) 97 Room Air Last Recorded Weight Weight (Kilograms): 93.500 Physical Exam General Appearance: no apparent distress (frail appearing) Head: normocephalic, atraumatic Eyes: PERRL, EOMI Neck: no adenopathy Respiratory/Chest: lungs clear, no respiratory distress Cardiovascular: + irregularly irregular Back: + pertinent finding (L pleur-x catheter w/ clean dry dressing in place) Abdomen/GI: normal bowel sounds, non tender, soft Extremities/Musculoskelatal: no calf tenderness, no pedal edema Neurologic/Psych: alert, oriented x 3 Family History Diabetes mellitus FH: gallbladder disease FH: heart disease FH: lung disease FHx: cancer Hypertension Negative for CKD / ESRD Social History Drug Use: none Marital Status: 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) Laboratory Results Past 24 Hours 07/18/17 08:35 Test 07/17/17 11:08 07/17/17 16:01 07/17/17 20:19 07/18/17 07:58 Bedside Glucose 117 mg/dl (70-90) 93 mg/dl (70-90) 133 mg/dl (70-90) 81 mg/dl (70-90) Test 07/18/17 08:35 Prothrombin Time 14.9 SECONDS (9.0-12.0) Prothromb Time International Ratio 1.4 (0.9-1.1) Anion Gap 9.0 mmol/L (3-11) Est Creatinine Clear Calc Drug Dose 19.9 ml/min Estimated GFR () 17.6 Estimated GFR (Non- 15.2 BUN/Creatinine Ratio 16.9 (10-20) Calcium Level 8.5 mg/dl (8.5-10.1) Allergies Coded Allergies: No Known Allergies (Verified , 07/09/17) Medications Current Inpatient Medications Medications (Trade) Dose Ordered Sig/Dajuan Route Start Time Stop Time Status Last Admin Dose Admin Lidocaine (Lidoderm Patch 5%) 1 patch QAM TD 07/10/17 09:00 08/09/17 08:59 07/18/17 08:43 1 PATCH Miscellaneous (Remove Lidoderm Patch) 1 ea DAILY@21 N/A 07/09/17 21:00 08/08/17 20:59 07/17/17 21:15 1 EA Amiodarone HCl (Cordarone Tab) 200 mg DAILY PO 07/10/17 09:00 08/09/17 08:59 07/18/17 07:15 200 MG Atorvastatin Calcium (Lipitor Tab) 40 mg DAILY PO 07/10/17 09:00 08/09/17 08:59 07/18/17 08:43 40 MG Clopidogrel Bisulfate (plAVix TAB) 75 mg DAILY PO 07/10/17 09:00 08/09/17 08:59 07/18/17 07:14 75 MG Gabapentin (Neurontin Cap) 300 mg BID PO 07/09/17 21:00 08/08/17 20:59 07/18/17 07:15 300 MG Insulin Glargine (Lantus Solostar Pen) 15 units QAM SC 07/10/17 09:00 08/09/17 08:59 07/18/17 08:43 15 UNITS Insulin Glargine (Lantus Solostar Pen) 20 units QPM SC 07/09/17 21:00 08/08/17 20:59 07/17/17 21:29 20 UNITS Metoprolol Tartrate (Lopressor Tab) 50 mg BID PO 07/09/17 21:00 08/08/17 20:59 07/18/17 07:14 50 MG Nitroglycerin (Nitrostat Tab) 0.4 mg UD PRN UT 07/09/17 11:00 08/08/17 10:59 Multivitamins/ Minerals (Multivitamin W/ Minerals Tab) 1 tab DAILY PO 07/10/17 09:00 08/09/17 08:59 07/18/17 07:13 1 TAB Insulin Aspart (novoLOG ASPART) SLIDING SCALE G... ACHS SC 07/09/17 11:00 08/08/17 10:59 07/16/17 12:30 5 UNITS Glucose (Glucose 40% Gel) 15-30 GRAMS 15 GRAMS... UD PRN PO 07/09/17 12:00 08/08/17 11:59 Glucose (Glucose Chew Tab) 4-8 Tablets 4 Tabl... UD PRN PO 07/09/17 12:00 08/08/17 11:59 Dextrose (Dextrose 50% 50ML Syringe) 25-50ML OF 50% DW IV FOR... UD PRN IV 07/09/17 12:00 08/08/17 11:59 07/14/17 13:10 25 ML Glucagon (Glucagon Inj) 1 mg UD PRN SQ 07/09/17 12:00 08/08/17 11:59 Mometasone Furoate/ Formoterol Fumar (Dulera 100-5 Mcg/Act) 2 puffs BID INH 07/11/17 09:00 08/10/17 08:59 07/18/17 07:13 2 PUFFS Ferrous Gluconate (Ferrous Gluconate Tab) 324 mg QAM PO 07/11/17 14:00 08/10/17 13:59 07/18/17 07:15 324 MG Polyethylene (Miralax Powder Packet) 17 gm BID PO 07/12/17 12:45 08/08/17 12:44 07/17/17 08:00 17 GM Senna (Senokot Tab) 17.2 mg QAM PO 07/12/17 12:45 08/11/17 12:44 07/17/17 08:00 17.2 MG Bisacodyl (Dulcolax Supp) 10 mg Q12H PRN SC 07/12/17 11:00 08/11/17 10:59 Nystatin (Mycostatin Susp) 5 ml QID PO 07/12/17 12:45 07/22/17 12:44 07/18/17 07:15 5 ML Levofloxacin (Levaquin Tab) 500 mg Q2D@1100 PO 07/13/17 14:45 07/20/17 14:44 07/17/17 11:05 500 MG Albuterol/ Ipratropium (Duoneb) 3 ml QIDR PRN INH 07/14/17 12:00 08/13/17 11:59 07/15/17 22:18 3 ML Docusate Sodium (coLACE CAP) 100 mg BID PO 07/14/17 20:00 08/13/17 19:59 07/17/17 07:58 100 MG Bisacodyl (Dulcolax Tab) 10 mg DAILY PO 07/17/17 09:00 08/16/17 08:59 07/17/17 08:03 10 MG Warfarin Sodium (Coumadin Tab) 5 mg DAILY@16 PO 07/17/17 16:00 08/16/17 15:59 07/17/17 15:52 5 MG Acetaminophen/ Hydrocodone Bitart ([place] 5/325 Tab) 1 tab Q6H PRN PO 07/16/17 20:00 07/30/17 19:59 07/17/17 17:20 1 TAB Impression (1) Fall in home (2) Fracture of right ulnar styloid (3) 3 ribs fx from fell, 2 recent fells in 2 days, shoulder pain (4) ARF (acute renal failure) (5) Chronic kidney disease, stage 4 (severe) (6) Hyponatremia (7) Anemia (8) Hypertension (9) Diabetes (10) COPD (chronic obstructive pulmonary disease) (11) Narcotic-induced nausea and vomiting Mrs. Chappell was admitted following a mechanical fall. She suffered three rib fractures. Mrs. Chappell has developed narcotic associated nausea and clinical dehydration. Creatinine zach from 2.8 to 3.8 and patient developed hyponatremia. Urinalysis shows high specific gravity and urine sodium is low c/ w intravascular volume contraction. Renal US revealed 9 cm kidneys w/ cortical thinning. There was no obstruction. JVD is likely a manifestation of pulmonary disease. Recommendations ACUTE KIDNEY INJURY: -- Remains clinically volume contracted. -- Continue to hold Furosemide -- Encourage oral hydration -- Patient is nonoliguric and nearing baseline kidney function CHRONIC KIDNEY DISEASE: -- Baseline creatinine has been 2.8 -- Renal US report 07/14: 9 cm kidneys w/ cortical thinning. No stone/mass/ obstruction HYPONATREMIA: -- Serum sodium is improved to 133 this am -- Pain and narcotic use may be contributing to high ADH -- Will monitor ANEMIA: -- Stable. If Hgb trends downward will consider checking iron stores and providing IV iron therapy RIB FRACTURES: -- Pain improved following nerve block 07/14
[2017-07-18 15:33] VITALS: BP 123/73; PULSE 63; TEMP 36.7; O2SAT 97
[2017-07-18] MEDS: WARFARIN SOD 5 MG TAB PO SCH (15:52)
--- NOTE | 2017-07-18 15:53 | Progress Note ---
Subjective Date of Service: Jul 18, 2017. Problem List Medical Problems: (1) Acute coronary syndrome Status: Acute (2) Acute electrocardiogram changes Status: Acute (3) Ankle pain Status: Acute (4) Chronic kidney disease Status: Acute (5) Colitis Status: Acute (6) Fall in home Status: Acute (7) Fracture of rib of left side Status: Acute (8) Fracture of right distal radius Status: Acute (9) Fracture of right ulnar styloid Status: Acute (10) Frequent falls Status: Acute (11) Hemothorax Status: Acute (12) NSTEMI (non-ST elevated myocardial infarction) Status: Acute (13) Right wrist fracture Status: Acute Objective Vital Signs Date Time Temp Pulse Resp B/P (MAP) Pulse Ox O2 Delivery O2 Flow Rate FiO2 07/18/17 15:33 36.7 63 16 123/73 (90) 97 Room Air 07/18/17 07:30 Room Air 07/18/17 07:30 36.4 63 16 139/73 (95) 97 Room Air 07/17/17 23:50 Nasal Cannula 2.0 07/17/17 22:57 36.9 98 16 148/78 (101) 97 Room Air 07/17/17 21:13 99 Nasal Cannula 2.0 07/17/17 21:06 69 144/75 (98) 07/17/17 18:10 Nasal Cannula 2.0 07/17/17 16:40 36.6 82 20 95 07/17/17 16:31 98 Nasal Cannula 2.0 07/17/17 16:30 36.5 74 18 129/71 (90) 79 Room Air 07/17/17 16:00 Room Air Laboratory Results Last 24 Hours Test 07/17/17 16:01 07/17/17 20:19 07/18/17 07:58 07/18/17 08:35 Bedside Glucose 93 mg/dl 133 mg/dl 81 mg/dl Prothrombin Time 14.9 SECONDS Prothromb Time International Ratio 1.4 Sodium Level 133 mmol/L Potassium Level 3.6 mmol/L Chloride Level 100 mmol/L Carbon Dioxide Level 24 mmol/L Anion Gap 9.0 mmol/L Blood Urea Nitrogen 50 mg/dl Creatinine 2.95 mg/dl Est Creatinine Clear Calc Drug Dose 19.9 ml/min Estimated GFR () 17.6 Estimated GFR (Non- 15.2 BUN/Creatinine Ratio 16.9 Random Glucose 91 mg/dl Calcium Level 8.5 mg/dl Test 07/18/17 11:59 Bedside Glucose 176 mg/dl Assessment and Plan 71 F with falls, fractures of T10, right wrist and ribs with hemothorax s/p drainage and Chest tube placement S/p multiple falls, multiple fractures hemothorax--improving -Displaced left rib fractures (ribs 8-9), nondisplaced left rib fracture (rib 10 ), right distal radial fracture, nondisplaced transverse process T10 fracture -Thoracic surgery managing PleurX Hemothorax drained for 700 cc on 07/14.. Nerve block from ribs 2-11. PleurX continues to drain but CXR looks improves. -Continue lidocaine patch. Oxycodone changed to [place] due to lethargy, more alert since change Ortho placed in short arm cast 07/16, F/u Dr. Orosco 3-4 weeks, thoracic fracture no intervention needed Opiate associated Constipation Senokot qam and Miralax BID plus Dulcolax tabs qd Acute pulmonary insufficiency following surgery--resolved, Pt extubated 07/14, currently on room air. Fevers, possible PNA--fevers resolved -D/C Zosyn, remains on Levaquin 500 mg PO q48h (renal dosing, CrCl 15). last dose Hyponatremia--stable Acute renal failure on CKD stage IV--stable -Baseline creatine around 2.8-2.9, still slightly above baseline -continue to hold Lasix. urinary retention concern for urethra stenosis-Mccollum placed -Urology consulted, recommended trial of voiding when ok with primary team. F/ u Dr. Dorsey in 1 month Atrial fibrillation--stable, rate controlled amiodarone 200 mg PO qd resuming warfarin with CT surgery approval -Warfarin 5 mg PO qd, monitor INR HTN, HLD, CAD, h/o CA s/p stent x 2--stable -Last ELAINE was on 11/17/2016 Lipitor 40 mg PO qd, Plavix 75 mg PO qd, Lopressor 50 mg PO BID Chronic diastolic CHF, did have slight clinical worsening, or acute diastolic failure associated with ivf given for DEMETRA DM II--HgbA1c 9.6 on 07/09 Lantus 15 units SC qam and 20 units SC qpm, plus Insulin sliding scale COPD--wheezing resolved, maybe from acute diastolic heart failure -Continue Dulera 2 puffs inh BID -DuoNebs -Current smoker, councelled on cessation Oral candidiasis--stable/resolving nystatin solution 5 mL PO QID. DVT prophylaxis-Warfarin -SCDs Code Status -Level III, FULL NO MECH VENTILATION Dispo PT/OT recommend rehab. pt is agreeable, case management is aware Continued [facility] stay due to: inadequate oral pain control, ambulation difficulties, multiple IV medications needed Discharge planning: uncertain
[2017-07-18] MEDS: HYDROCODONE/ACETAMOPHEN 5/325MG TAB PO PRN (18:08)
[2017-07-18 21:00] VITALS: BP 137/75; PULSE 73
[2017-07-18 23:06] VITALS: BP 125/73; PULSE 86; TEMP 36.8; O2SAT 99
[2017-07-19] VITALS (7 sets, daily range): BP systolic 119–138; BP diastolic 62–91; PULSE 60–100; TEMP 36.4–36.8; O2SAT 95–99
[2017-07-19] MEDS: HYDROCODONE/ACETAMOPHEN 5/325MG TAB PO PRN ×2 (02:44→18:23)
[2017-07-19 07:59] LABS: INR 1.7 (0.9-1.1); PROTHROMBIN TIME (PATIENT) 17.3 SECONDS (9.0-12.0)
[2017-07-19] MEDS: INSULIN ASPART 100 UNITS/ML 3 ML PEN SC SCH ×4 (08:00→20:45)
[2017-07-19 08:23] LABS: BUN/CREATININE RATIO 16.6 (10-20); CALCIUM 8.3 mg/dl (8.5-10.1); CREATININE 2.73 mg/dl (0.60-1.20); POTASSIUM 3.6 mmol/L (3.5-5.1)
[2017-07-19] MEDS: AMIODARONE 200 MG TAB PO SCH (08:30)
[2017-07-19] MEDS: FERROUS GLUCONATE 324 MG TAB PO SCH (08:31)
[2017-07-19] MEDS: CLOPIDOGREL BISULFATE 75 MG TAB PO SCH (08:31)
[2017-07-19] MEDS: DOCUSATE SODIUM 100 MG CAP PO SCH (08:31)
[2017-07-19] MEDS: CEROVITE ADV FORMULA TAB PO SCH (08:31)
[2017-07-19] MEDS: ATORVASTATIN 40 MG TAB PO SCH (08:32)
[2017-07-19] MEDS: NYSTATIN SUSP 500,000 U/5 ML UDC PO SCH ×4 (08:32→20:40)
[2017-07-19] MEDS: SENNA 8.6 MG TAB PO SCH (08:32)
[2017-07-19] MEDS: GABAPENTIN 300 MG CAP PO SCH ×2 (08:32→20:40)
[2017-07-19] MEDS: POLYETHYLENE (MIRALAX) 17 GM PACK PO SCH (08:33)
[2017-07-19] MEDS: BISACODYL 5 MG TABEC PO SCH (08:33)
[2017-07-19] MEDS: MOMETASONE/FORMOTEROL (DULERA) INH INH SCH ×2 (08:34→20:40)
[2017-07-19] MEDS: LIDODERM (LIDOCAINE) PATCH 5% TD SCH (08:35)
[2017-07-19] MEDS: INSULIN GLARGINE SOLOSTAR 100 UNITS/ML 3 ML PEN SC SCH ×2 (08:57→20:46)
--- NOTE | 2017-07-19 10:02 | Nephrology Progress Note ---
Nephrology Progress Note Date of Service Jul 19, 2017. Chief Complaint Acute on CKD, hyponatremia Subjective Mrs. Chappell was seen & examined in her hospital room this morning. Her Pleur- x catheter remains in place. She denies chest pain or dyspnea. Hodges catheter remains in place. RN notes show 6 L UO overnight. This morning there is 200 cc in collection bag. Review of Systems Constitutional: No fever Cardiovascular: No chest pain Respiratory: No dyspnea at rest Abdomen: No pain, No nausea, No vomiting Extremities: + leg edema A complete review of systems was performed. Pertinent positives are noted above. All other systems are negative. Vital Signs Last 8 Hrs Date Time Temp Pulse Resp B/P (MAP) Pulse Ox O2 Delivery O2 Flow Rate FiO2 07/19/17 07:26 36.5 72 18 138/69 (92) 98 Room Air Last Recorded Weight Weight (Kilograms): 93.500 Physical Exam General Appearance: no apparent distress (frail appearing ) Head: atraumatic (temporal muscle wasting) Neck: no adenopathy Respiratory/Chest: lungs clear, no respiratory distress, + pertinent finding ( L Pleur-x catheter remains in place) Cardiovascular: + irregularly irregular Abdomen/GI: normal bowel sounds, non tender, soft Extremities/Musculoskelatal: + pedal edema (1+ pretibial pitting edema) Neurologic/Psych: alert, oriented x 3 Family History Diabetes mellitus FH: gallbladder disease FH: heart disease FH: lung disease FHx: cancer Hypertension Negative for CKD / ESRD Social History Drug Use: none Marital Status: 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) Laboratory Results Past 24 Hours 07/19/17 07:14 Test 07/18/17 11:59 07/18/17 16:59 07/18/17 20:35 07/19/17 07:14 Bedside Glucose 176 mg/dl (70-90) 139 mg/dl (70-90) 175 mg/dl (70-90) Prothrombin Time 17.3 SECONDS (9.0-12.0) Prothromb Time International Ratio 1.7 (0.9-1.1) Anion Gap 6.0 mmol/L (3-11) Est Creatinine Clear Calc Drug Dose 21.5 ml/min Estimated GFR () 19.4 Estimated GFR (Non- 16.7 BUN/Creatinine Ratio 16.6 (10-20) Calcium Level 8.3 mg/dl (8.5-10.1) Test 07/19/17 07:46 07/19/17 08:16 Bedside Glucose 61 mg/dl (70-90) 70 mg/dl (70-90) Allergies Coded Allergies: No Known Allergies (Verified , 07/09/17) Medications Current Inpatient Medications Medications (Trade) Dose Ordered Sig/Dajuan Route Start Time Stop Time Status Last Admin Dose Admin Lidocaine (Lidoderm Patch 5%) 1 patch QAM TD 07/10/17 09:00 08/09/17 08:59 07/19/17 08:35 1 PATCH Miscellaneous (Remove Lidoderm Patch) 1 ea DAILY@21 N/A 07/09/17 21:00 08/08/17 20:59 07/18/17 20:56 1 EA Amiodarone HCl (Cordarone Tab) 200 mg DAILY PO 07/10/17 09:00 08/09/17 08:59 07/19/17 08:30 200 MG Atorvastatin Calcium (Lipitor Tab) 40 mg DAILY PO 07/10/17 09:00 08/09/17 08:59 07/19/17 08:32 40 MG Clopidogrel Bisulfate (plAVix TAB) 75 mg DAILY PO 07/10/17 09:00 08/09/17 08:59 07/19/17 08:31 75 MG Gabapentin (Neurontin Cap) 300 mg BID PO 07/09/17 21:00 08/08/17 20:59 07/19/17 08:32 300 MG Insulin Glargine (Lantus Solostar Pen) 15 units QAM SC 07/10/17 09:00 08/09/17 08:59 07/19/17 08:57 15 UNITS Metoprolol Tartrate (Lopressor Tab) 50 mg BID PO 07/09/17 21:00 08/08/17 20:59 07/18/17 20:56 50 MG Nitroglycerin (Nitrostat Tab) 0.4 mg UD PRN UT 07/09/17 11:00 08/08/17 10:59 Multivitamins/ Minerals (Multivitamin W/ Minerals Tab) 1 tab DAILY PO 07/10/17 09:00 08/09/17 08:59 07/19/17 08:31 1 TAB Insulin Aspart (novoLOG ASPART) SLIDING SCALE G... ACHS SC 07/09/17 11:00 08/08/17 10:59 07/18/17 20:55 2 UNITS Glucose (Glucose 40% Gel) 15-30 GRAMS 15 GRAMS... UD PRN PO 07/09/17 12:00 08/08/17 11:59 Glucose (Glucose Chew Tab) 4-8 Tablets 4 Tabl... UD PRN PO 07/09/17 12:00 08/08/17 11:59 Dextrose (Dextrose 50% 50ML Syringe) 25-50ML OF 50% DW IV FOR... UD PRN IV 07/09/17 12:00 08/08/17 11:59 07/14/17 13:10 25 ML Glucagon (Glucagon Inj) 1 mg UD PRN SQ 07/09/17 12:00 08/08/17 11:59 Mometasone Furoate/ Formoterol Fumar (Dulera 100-5 Mcg/Act) 2 puffs BID INH 07/11/17 09:00 08/10/17 08:59 07/19/17 08:34 2 PUFFS Ferrous Gluconate (Ferrous Gluconate Tab) 324 mg QAM PO 07/11/17 14:00 08/10/17 13:59 07/19/17 08:31 324 MG Polyethylene (Miralax Powder Packet) 17 gm BID PO 07/12/17 12:45 08/08/17 12:44 07/17/17 08:00 17 GM Senna (Senokot Tab) 17.2 mg QAM PO 07/12/17 12:45 08/11/17 12:44 07/17/17 08:00 17.2 MG Bisacodyl (Dulcolax Supp) 10 mg Q12H PRN [place] 07/12/17 11:00 08/11/17 10:59 Nystatin (Mycostatin Susp) 5 ml QID PO 07/12/17 12:45 07/22/17 12:44 07/19/17 08:32 5 ML Levofloxacin (Levaquin Tab) 500 mg Q2D@1100 PO 07/13/17 14:45 07/20/17 14:44 07/17/17 11:05 500 MG Albuterol/ Ipratropium (Duoneb) 3 ml QIDR PRN INH 07/14/17 12:00 08/13/17 11:59 07/15/17 22:18 3 ML Docusate Sodium (coLACE CAP) 100 mg BID PO 07/14/17 20:00 08/13/17 19:59 07/17/17 07:58 100 MG Bisacodyl (Dulcolax Tab) 10 mg DAILY PO 07/17/17 09:00 08/16/17 08:59 07/17/17 08:03 10 MG Warfarin Sodium (Coumadin Tab) 5 mg DAILY@16 PO 07/17/17 16:00 08/16/17 15:59 07/18/17 15:52 5 MG Acetaminophen/ Hydrocodone Bitart ([place] 5/325 Tab) 1 tab Q6H PRN PO 07/16/17 20:00 07/30/17 19:59 07/19/17 02:44 1 TAB Insulin Glargine (Lantus Solostar Pen) 15 units QPM SC 07/19/17 21:00 08/08/17 20:59 Impression (1) Fall in home (2) Fracture of right ulnar styloid (3) 3 ribs fx from fell, 2 recent fells in 2 days, shoulder pain (4) ARF (acute renal failure) (5) Chronic kidney disease, stage 4 (severe) (6) Hyponatremia (7) Anemia (8) Hypertension (9) Diabetes (10) COPD (chronic obstructive pulmonary disease) (11) Narcotic-induced nausea and vomiting Mrs. Chappell was admitted following a mechanical fall. She suffered three rib fractures. Mrs. Chappell has developed narcotic associated nausea and clinical dehydration. Creatinine zach from 2.8 to 3.8 and patient developed hyponatremia. Urinalysis shows high specific gravity and urine sodium is low c/ w intravascular volume contraction. Renal US revealed 9 cm kidneys w/ cortical thinning. There was no obstruction. JVD is likely a manifestation of pulmonary disease. Recommendations ACUTE KIDNEY INJURY: -- Resolved -- Continue to hold Furosemide -- Encourage oral hydration -- billing and accounting staff assistant reported 6 L UO over last 24 hours(?). Patient was not on diuretics. Keep hodges catheter in today. Monitor UO. Will check urine osmolality in am CHRONIC KIDNEY DISEASE: -- Baseline creatinine has been 2.8 -- Renal US report 07/14: 9 cm kidneys w/ cortical thinning. No stone/mass/ obstruction HYPONATREMIA: -- Serum sodium is improved to 133 this am -- Pain and narcotic use may be contributing to high ADH -- Will monitor ANEMIA: -- Cruz order H&H with am labs -- If Hgb trends downward will consider checking iron stores and providing IV iron therapy RIB FRACTURES: -- Pain improved following nerve block 07/14
[2017-07-19] MEDS: METOPROLOL TARTRATE 50 MG TAB PO SCH ×2 (10:30→20:42)
--- NOTE | 2017-07-19 10:47 | Surgery Progress Note ---
Subjective Date of Service: Jul 19, 2017. Pt. noted pain on left chest wall. She denies worsening SOB. Objective Vitals Date Time Temp Pulse Resp B/P (MAP) Pulse Ox O2 Delivery O2 Flow Rate FiO2 07/19/17 07:26 36.5 72 18 138/69 (92) 98 Room Air 07/18/17 23:15 Nasal Cannula 2.0 07/18/17 23:06 36.8 86 14 125/73 (90) 99 Nasal Cannula 2.0 07/18/17 21:00 73 137/75 (95) 07/18/17 15:33 36.7 63 16 123/73 (90) 97 Room Air 07/18/17 15:30 Room Air Physical Exam General: + well developed, + well nourished, No distress CV: + RRR Pulmonary: + pertinent finding (BS are decreased at bases), No accessory muscle use, No respiratory distress Neurologic: + alert & oriented x 3 Drains / Tubes pleurex (150 cc this am ) Assessment & Plan 71 year old female with left sided rib fractures and pleural effusion -pt. is s/p VATS with drainage of effusion, intercostal nerve block and placement of pleurx catheter -continue pain control measures -continue to increase mobilization -pulmonary toilet and use of IS -continue to drain pleurx daily
[2017-07-19] MEDS: LEVOFLOXACIN 500 MG TAB PO SCH (12:12)
--- NOTE | 2017-07-19 12:16 | Progress Note ---
Subjective Date of Service: Jul 19, 2017. Subjective pt is looking more vibrant but still winces with pain with any movement of her torso, still wit pleurex in place Problem List Medical Problems: (1) Acute coronary syndrome Status: Acute (2) Acute electrocardiogram changes Status: Acute (3) Ankle pain Status: Acute (4) Chronic kidney disease Status: Acute (5) Colitis Status: Acute (6) Fall in home Status: Acute (7) Fracture of rib of left side Status: Acute (8) Fracture of right distal radius Status: Acute (9) Fracture of right ulnar styloid Status: Acute (10) Frequent falls Status: Acute (11) Hemothorax Status: Acute (12) NSTEMI (non-ST elevated myocardial infarction) Status: Acute (13) Right wrist fracture Status: Acute Review of Systems Constitutional: No fever, No chills Respiratory: No cough, No shortness of breath Cardiac: + chest pain, No edema Abdomen: No pain, No nausea, No vomiting, No diarrhea Psychiatric: No depression symptoms, No anhedonism Objective Vital Signs Date Time Temp Pulse Resp B/P (MAP) Pulse Ox O2 Delivery O2 Flow Rate FiO2 07/19/17 07:26 36.5 72 18 138/69 (92) 98 Room Air 07/18/17 23:15 Nasal Cannula 2.0 07/18/17 23:06 36.8 86 14 125/73 (90) 99 Nasal Cannula 2.0 07/18/17 21:00 73 137/75 (95) 07/18/17 15:33 36.7 63 16 123/73 (90) 97 Room Air 07/18/17 15:30 Room Air Physical Exam General Appearance: WD/WN, + mild distress Eyes: normal inspection, PERRL, EOMI, sclerae normal Respiratory/Chest: no respiratory distress, + decreased breath sounds Cardiovascular: regular rate, rhythm, no murmur Abdomen: normal bowel sounds, non tender, soft Extremities: no pedal edema, no calf tenderness Neurologic/Psychiatric: alert, oriented x 3 Laboratory Results Last 24 Hours Test 07/18/17 08:35 07/18/17 11:59 07/18/17 16:59 07/18/17 20:35 Prothrombin Time 14.9 SECONDS Prothromb Time International Ratio 1.4 Sodium Level 133 mmol/L Potassium Level 3.6 mmol/L Chloride Level 100 mmol/L Carbon Dioxide Level 24 mmol/L Anion Gap 9.0 mmol/L Blood Urea Nitrogen 50 mg/dl Creatinine 2.95 mg/dl Est Creatinine Clear Calc Drug Dose 19.9 ml/min Estimated GFR () 17.6 Estimated GFR (Non- 15.2 BUN/Creatinine Ratio 16.9 Random Glucose 91 mg/dl Calcium Level 8.5 mg/dl Bedside Glucose 176 mg/dl 139 mg/dl 175 mg/dl Test 07/19/17 07:14 Prothrombin Time 17.3 SECONDS Prothromb Time International Ratio 1.7 Assessment and Plan 71 F with falls, fractures of T10, right wrist and ribs with hemothorax s/p drainage and Chest tube placement S/p multiple falls, multiple fractures hemothorax--improving -Displaced left rib fractures (ribs 8-9), nondisplaced left rib fracture (rib 10 ), right distal radial fracture, nondisplaced transverse process T10 fracture -Thoracic surgery managing PleurX Hemothorax intraoperatively drained for 700 cc on 07/14.. Nerve block from ribs 2-11. PleurX continues to drain but CXR looks improved. -Continue lidocaine patch. Oxycodone changed to [place] due to lethargy, more alert since change Ortho placed in short arm cast 07/16, F/u Dr. Orosco 3-4 weeks, thoracic fracture no intervention needed Opiate associated Constipation Senokot qam and Miralax BID plus Dulcolax tabs qd Acute pulmonary insufficiency following surgery--resolved, Pt extubated 07/14, currently on room air. Fevers, possible PNA--fevers resolved -D/C Zosyn, remains on Levaquin 500 mg PO q48h (renal dosing, CrCl 15). last dose Hyponatremia--stable Acute renal failure on CKD stage IV--stable -Baseline creatine around 2.8-2.9, still slightly above baseline -clinical volume status looks stable continue to hold Lasix. urinary retention concern for urethra stenosis-Mccollum placed -Urology consulted, recommended trial of voiding when ok with primary team. F/ u Dr. Dorsey in 1 month Atrial fibrillation--stable, rate controlled amiodarone 200 mg PO qd resuming warfarin with CT surgery approval -Warfarin 5 mg PO qd, monitor INR HTN, HLD, CAD, h/o [place] s/p stent x 2--stable -Last ELAINE was on 11/17/2016 Lipitor 40 mg PO qd, Plavix 75 mg PO qd, Lopressor 50 mg PO BID acute diastolic failure associated with ivf given for DEMETRA, now stable to chronic state DM II--HgbA1c 9.6 on 07/09 blood sugars slightly low will reduced lantus to 15 units bid, plus Insulin sliding scale COPD--no further wheezing, likely from acute diastolic heart failure -Continue Dulera 2 puffs inh BID -DuoNebs -Current smoker, counselled on cessation Oral candidiasis--stable/resolving nystatin solution 5 mL PO QID. DVT prophylaxis-Warfarin -SCDs Code Status -Level III, FULL NO MECH VENTILATION Dispo PT/OT recommend rehab. pt is agreeable, case management is aware Continued [facility] stay due to: inadequate oral pain control, ambulation difficulties, multiple IV medications needed Discharge planning: uncertain
[2017-07-19 14:24] LABS: URINE APPEARANCE CLEAR (CLEAR); URINE BILIRUBIN NEG (NEG); URINE COLOR YELLOW; URINE NITRITE NEG (NEG); URINE SPECIFIC GRAVITY 1.013 (1.000-1.030); UROBILINOGEN NEG (NEG)
[2017-07-19 14:32] LABS: MANUAL MICROSCOPIC REQUIRED? NO; REVIEW REQ? NO
[2017-07-19] MEDS: WARFARIN SOD 5 MG TAB PO SCH (15:37)
[2017-07-20] MEDS: HYDROCODONE/ACETAMOPHEN 5/325MG TAB PO PRN ×3 (00:24→21:36)
[2017-07-20 06:35] VITALS: BP 123/51; PULSE 84; O2SAT 75
[2017-07-20 06:45] VITALS: O2SAT 96
[2017-07-20 06:55] VITALS: TEMP 36.4
[2017-07-20 07:12] LABS: HEMATOCRIT 29.3 % (37-47); MEAN CELL VOLUME 80.7 fL (80-100); MEAN CORPUSCULAR HEMOGLOBIN 25.3 pg (25-34); MEAN CORPUSCULAR HGB CONC 31.4 g/dl (32-36); MEAN PLATELET VOLUME 9.2 fL (7.4-10.4); PLATELET COUNT 318 K/uL (130-400); RED BLOOD COUNT 3.63 M/uL (4.2-5.4); WHITE BLOOD COUNT 7.75 K/uL (4.8-10.8)
[2017-07-20 07:19] LABS: INR 1.9 (0.9-1.1); PROTHROMBIN TIME (PATIENT) 20.1 SECONDS (9.0-12.0)
[2017-07-20 07:45] LABS: CALCIUM 8.5 mg/dl (8.5-10.1); CREATININE 2.67 mg/dl (0.60-1.20); POTASSIUM 3.8 mmol/L (3.5-5.1)
[2017-07-20 07:55] VITALS: O2SAT 96
[2017-07-20] MEDS: INSULIN ASPART 100 UNITS/ML 3 ML PEN SC SCH ×4 (08:00→21:00)
[2017-07-20] MEDS: METOPROLOL TARTRATE 50 MG TAB PO SCH ×2 (09:00→21:37)
[2017-07-20] MEDS: MOMETASONE/FORMOTEROL (DULERA) INH INH SCH ×2 (09:11→21:36)
[2017-07-20] MEDS: AMIODARONE 200 MG TAB PO SCH (09:12)
[2017-07-20] MEDS: FERROUS GLUCONATE 324 MG TAB PO SCH (09:13)
[2017-07-20] MEDS: ATORVASTATIN 40 MG TAB PO SCH (09:13)
[2017-07-20] MEDS: CEROVITE ADV FORMULA TAB PO SCH (09:14)
[2017-07-20] MEDS: NYSTATIN SUSP 500,000 U/5 ML UDC PO SCH ×4 (09:15→21:36)
[2017-07-20] MEDS: CLOPIDOGREL BISULFATE 75 MG TAB PO SCH (09:15)
[2017-07-20] MEDS: SENNA 8.6 MG TAB PO SCH (09:15)
[2017-07-20] MEDS: GABAPENTIN 300 MG CAP PO SCH ×2 (09:15→21:37)
[2017-07-20] MEDS: LIDODERM (LIDOCAINE) PATCH 5% TD SCH (09:16)
[2017-07-20] MEDS: INSULIN GLARGINE SOLOSTAR 100 UNITS/ML 3 ML PEN SC SCH ×2 (09:23→21:33)
--- NOTE | 2017-07-20 09:40 | Surgery Progress Note ---
Subjective Date of Service: Jul 20, 2017. Pt. notes continued pain at rib fracture sites. N o SOB at this time. Objective Vitals Date Time Temp Pulse Resp B/P (MAP) Pulse Ox O2 Delivery O2 Flow Rate FiO2 07/20/17 07:55 96 Nasal Cannula 3.0 07/20/17 06:55 36.4 07/20/17 06:45 96 Nasal Cannula 3.0 07/20/17 06:35 84 22 123/51 (75) 75 Room Air 07/19/17 23:25 Room Air 07/19/17 22:55 36.8 73 18 127/71 (89) 95 Room Air 07/19/17 19:32 96 Room Air 07/19/17 19:12 100 18 136/91 (106) 96 Room Air 07/19/17 15:30 Room Air 07/19/17 15:22 36.4 73 18 138/67 (90) 97 Room Air 07/19/17 15:10 60 99 07/19/17 12:15 97 Room Air Physical Exam General: + well developed, + well nourished, No distress CV: + RRR Pulmonary: + pertinent finding (decreased at left base), No accessory muscle use, No respiratory distress Neurologic: + alert & oriented x 3 Drains / Tubes pleurex (200 cc this am ) Assessment & Plan 71 year old female with left sided rib fractures and pleural effusion -pt. is s/p VATS with drainage of effusion, intercostal nerve block and placement of pleurx catheter -continue pain control measures -continue to increase mobilization -pulmonary toilet and use of IS -continue to drain pleurx daily -
--- NOTE | 2017-07-20 12:24 | Nephrology Progress Note ---
Nephrology Progress Note Date of Service Jul 20, 2017. Chief Complaint No acute events overnight. No complaints this morning. Jesenia was resting comfortably in chair. She reports good appetite. She denied any fevers or chills. She denied any pain. Review of Systems A complete review of systems was performed. Pertinent positives are noted above. All other systems are negative. Vital Signs Last 8 Hrs Date Time Temp Pulse Resp B/P (MAP) Pulse Ox O2 Delivery O2 Flow Rate FiO2 07/20/17 07:55 96 Nasal Cannula 3.0 07/20/17 06:55 36.4 07/20/17 06:45 96 Nasal Cannula 3.0 07/20/17 06:35 84 22 123/51 (75) 75 Room Air Last Recorded Weight Weight (Kilograms): 89.400 Physical Exam General Appearance: WD/WN, no apparent distress Head: normocephalic, atraumatic Eyes: normal inspection, sclerae normal ENT: normal ENT inspection, pharynx normal Neck: supple, no JVD Respiratory/Chest: lungs clear, normal breath sounds, no respiratory distress Cardiovascular: regular rate, rhythm, no edema Abdomen/GI: non tender, soft Genitourinary - Female: + pertinent finding (Mccollum draining clear yellow urine ) Extremities/Musculoskelatal: normal inspection, no pedal edema Neurologic/Psych: alert, normal mood/affect Family History Diabetes mellitus FH: gallbladder disease FH: heart disease FH: lung disease FHx: cancer Hypertension Negative for CKD / ESRD Social History Drug Use: none Marital Status: Occupation: retired . Retired. [facility] smoker (quit 11/17) Laboratory Results Past 24 Hours 07/20/17 06:57 07/20/17 06:57 Test 07/19/17 13:50 07/19/17 17:02 07/19/17 20:33 07/20/17 06:57 Urine Color YELLOW Urine Appearance CLEAR (CLEAR) Urine pH 6.0 (4.5-7.5) Urine Specific [place] 1.013 (1.000-1.030) Urine Protein TRACE (NEG) Urine Glucose (UA) NEG (NEG) Urine Ketones NEG (NEG) Urine Occult Blood 1+ (NEG) Urine Nitrite NEG (NEG) Urine Bilirubin NEG (NEG) Urine Urobilinogen NEG (NEG) Urine Leukocyte Esterase NEG (NEG) Urine WBC (Auto) 1-5 /hpf (0-5) Urine RBC (Auto) 5-10 /hpf (0-4) Urine Hyaline Casts (Auto) 1-5 /lpf (0-5) Urine Epithelial Cells (Auto) 10-20 /lpf (0-5) Urine Bacteria (Auto) NEG (NEG) Urine Osmolality 295 mOms/kg (500-800) Bedside Glucose 110 mg/dl (70-90) 191 mg/dl (70-90) Red Blood Count 3.63 M/uL (4.2-5.4) Mean Corpuscular Volume 80.7 fL (80-100) Mean Corpuscular Hemoglobin 25.3 pg (25-34) Mean Corpuscular Hemoglobin Concent 31.4 g/dl (32-36) RDW Standard Deviation 55.5 fL (36.4-46.3) RDW Coefficient of Variation 19.5 % (11.5-14.5) Mean Platelet Volume 9.2 fL (7.4-10.4) Prothrombin Time 20.1 SECONDS (9.0-12.0) Prothromb Time International Ratio 1.9 (0.9-1.1) Anion Gap 10.0 mmol/L (3-11) Est Creatinine Clear Calc Drug Dose 21.4 ml/min Estimated GFR () 19.9 Estimated GFR (Non- 17.2 BUN/Creatinine Ratio 14.0 (10-20) Calcium Level 8.5 mg/dl (8.5-10.1) Test 07/20/17 08:00 Bedside Glucose 86 mg/dl (70-90) Allergies Coded Allergies: No Known Allergies (Verified , 07/09/17) Medications Current Inpatient Medications Medications (Trade) Dose Ordered Sig/Dajuan Route Start Time Stop Time Status Last Admin Dose Admin Lidocaine (Lidoderm Patch 5%) 1 patch QAM TD 07/10/17 09:00 08/09/17 08:59 07/20/17 09:16 1 PATCH Miscellaneous (Remove Lidoderm Patch) 1 ea DAILY@21 N/A 07/09/17 21:00 08/08/17 20:59 07/19/17 20:40 1 EA Amiodarone HCl (Cordarone Tab) 200 mg DAILY PO 07/10/17 09:00 08/09/17 08:59 07/20/17 09:12 200 MG Atorvastatin Calcium (Lipitor Tab) 40 mg DAILY PO 07/10/17 09:00 08/09/17 08:59 07/20/17 09:13 40 MG Clopidogrel Bisulfate (plAVix TAB) 75 mg DAILY PO 07/10/17 09:00 08/09/17 08:59 07/20/17 09:15 75 MG Gabapentin (Neurontin Cap) 300 mg BID PO 07/09/17 21:00 08/08/17 20:59 07/20/17 09:15 300 MG Insulin Glargine (Lantus Solostar Pen) 15 units QAM SC 07/10/17 09:00 08/09/17 08:59 07/20/17 09:23 15 UNITS Metoprolol Tartrate (Lopressor Tab) 50 mg BID PO 07/09/17 21:00 08/08/17 20:59 07/19/17 20:42 50 MG Nitroglycerin (Nitrostat Tab) 0.4 mg UD PRN UT 07/09/17 11:00 08/08/17 10:59 Multivitamins/ Minerals (Multivitamin W/ Minerals Tab) 1 tab DAILY PO 07/10/17 09:00 08/09/17 08:59 07/20/17 09:14 1 TAB Insulin Aspart (novoLOG ASPART) SLIDING SCALE G... ACHS SC 07/09/17 11:00 08/08/17 10:59 07/19/17 20:45 3 UNITS Glucose (Glucose 40% Gel) 15-30 GRAMS 15 GRAMS... UD PRN PO 07/09/17 12:00 08/08/17 11:59 Glucose (Glucose Chew Tab) 4-8 Tablets 4 Tabl... UD PRN PO 07/09/17 12:00 08/08/17 11:59 Dextrose (Dextrose 50% 50ML Syringe) 25-50ML OF 50% DW IV FOR... UD PRN IV 07/09/17 12:00 08/08/17 11:59 07/14/17 13:10 25 ML Glucagon (Glucagon Inj) 1 mg UD PRN SQ 07/09/17 12:00 08/08/17 11:59 Mometasone Furoate/ Formoterol Fumar (Dulera 100-5 Mcg/Act) 2 puffs BID INH 07/11/17 09:00 08/10/17 08:59 07/20/17 09:11 2 PUFFS Ferrous Gluconate (Ferrous Gluconate Tab) 324 mg QAM PO 07/11/17 14:00 08/10/17 13:59 07/20/17 09:13 324 MG Bisacodyl (Dulcolax Supp) 10 mg Q12H PRN PA 07/12/17 11:00 08/11/17 10:59 Nystatin (Mycostatin Susp) 5 ml QID PO 07/12/17 12:45 07/22/17 12:44 07/20/17 09:15 5 ML Levofloxacin (Levaquin Tab) 500 mg Q2D@1100 PO 07/13/17 14:45 07/20/17 14:44 07/19/17 12:12 500 MG Albuterol/ Ipratropium (Duoneb) 3 ml QIDR PRN INH 07/14/17 12:00 08/13/17 11:59 07/15/17 22:18 3 ML Warfarin Sodium (Coumadin Tab) 5 mg DAILY@16 PO 07/17/17 16:00 08/16/17 15:59 07/19/17 15:37 5 MG Acetaminophen/ Hydrocodone Bitart ([place] 5/325 Tab) 1 tab Q6H PRN PO 07/16/17 20:00 07/30/17 19:59 07/20/17 06:18 1 TAB Insulin Glargine (Lantus Solostar Pen) 15 units QPM SC 07/19/17 21:00 08/08/17 20:59 07/19/17 20:46 15 UNITS Senna (Senokot Tab) 8.6 mg QAM PO 07/20/17 09:00 08/11/17 12:44 07/20/17 09:15 8.6 MG Impression (1) Fall in home (2) Fracture of right ulnar styloid (3) 3 ribs fx from fell, 2 recent fells in 2 days, shoulder pain (4) ARF (acute renal failure) (5) Chronic kidney disease, stage 4 (severe) (6) Hyponatremia (7) Anemia (8) Hypertension (9) Diabetes (10) COPD (chronic obstructive pulmonary disease) (11) Narcotic-induced nausea and vomiting Mrs. Chappell was admitted following a mechanical fall. She suffered three rib fractures. Mrs. Chappell has developed narcotic associated nausea and clinical dehydration. Creatinine zach from 2.8 to 3.8 and patient developed hyponatremia. Urinalysis demonstrated high specific gravity and urine sodium c/ w intravascular volume contraction. Renal US revealed 9 cm kidneys w/ cortical thinning. There was no obstruction. Recommendations ACUTE KIDNEY INJURY: -- Resolved -- Continue to hold Furosemide -- Encourage oral hydration -- UOP appropriate -- Suggest DC Mccollum catheter today to allow voiding trial CHRONIC KIDNEY DISEASE: -- Baseline creatinine has been 2.8 -- Renal US report 07/14: 9 cm kidneys w/ cortical thinning. No stone/mass/ obstruction HYPONATREMIA: -- Serum sodium stable and at baseline -- Pain and narcotic use may be contributing to high ADH -- Will monitor ANEMIA: -- If Hgb trends downward will consider checking iron stores and providing IV iron therapy RIB FRACTURES: -- Pain improved following nerve block 07/14
--- NOTE | 2017-07-20 14:03 | Hospitalist Progress Note ---
Hospitalist Progress Note Date of Service Jul 20, 2017. Subjective Pt evaluation today including: conversation w/ patient, physical exam, chart review, lab review, review of inpatient medication list The patient reports feeling well. She reports feeling fatigued from walking with physical therapy. She also complains of dyspnea on exertion. Per nursing , the patient's O2 sats dropped to 75% on room air after walking. The patient was placed on 3L at that time but was back on room air at my examination. Per PT notes, the pt did not desat while walking. The patient still complains of left rib pain that is worse with movement, however this is slowly improving. Her productive cough is also improved and is less frequent. The patient denies fevers, chills, sweats, chest pain, palpitations, claudication, wheezing, nausea , vomiting, abdominal pain, dysuria, hematuria, urinary retention, paralysis, weakness, numbness and tingling. Additional Comments: See HPI for pertinent positives and negatives. All other systems reviewed and negative. Objective Vital Signs Date Time Temp Pulse Resp B/P (MAP) Pulse Ox O2 Delivery O2 Flow Rate FiO2 07/20/17 07:55 96 Nasal Cannula 3.0 07/20/17 06:55 36.4 07/20/17 06:45 96 Nasal Cannula 3.0 07/20/17 06:35 84 22 123/51 (75) 75 Room Air 07/19/17 23:25 Room Air 07/19/17 22:55 36.8 73 18 127/71 (89) 95 Room Air 07/19/17 19:32 96 Room Air 07/19/17 19:12 100 18 136/91 (106) 96 Room Air 07/19/17 15:30 Room Air 07/19/17 15:22 36.4 73 18 138/67 (90) 97 Room Air 07/19/17 15:10 60 99 Physical Exam Notes: General appearance: +Obese. Well-developed, well-nourished, no apparent distress Head: Normocephalic, atraumatic Eyes: Normal inspection, PERRL, EOMI ENT: +Dry oral mucosa. Normal ENT inspection, hearing grossly normal, pharynx normal Neck: Supple, no JVD, trachea midline Respiratory/Chest: +Decreased breath sounds in bases. Lungs clear to auscultation, no respiratory distress Cardiovascular: +Irregularly irregular, rate controlled. Systolic murmur. No gallop Abdomen/GI: Normal bowel sounds, non-tender, soft Extremities/Musculoskeletal: +Trace pitting edema. Right forearm in short arm cast. No calf tenderness Neurological/Psych: Alert, normal mood/affect, oriented x 3 Skin: +Ecchymoses right inner elbow, right fingers. Normal color, warm/dry, no rash Laboratory Results Last 24 Hours Test 07/19/17 17:02 07/19/17 20:33 07/20/17 06:57 07/20/17 08:00 Bedside Glucose 110 mg/dl 191 mg/dl 86 mg/dl White Blood Count 7.75 K/uL Red Blood Count 3.63 M/uL Hemoglobin 9.2 g/dL Hematocrit 29.3 % Mean Corpuscular Volume 80.7 fL Mean Corpuscular Hemoglobin 25.3 pg Mean Corpuscular Hemoglobin Concent 31.4 g/dl RDW Standard Deviation 55.5 fL RDW Coefficient of Variation 19.5 % Platelet Count 318 K/uL Mean Platelet Volume 9.2 fL Prothrombin Time 20.1 SECONDS Prothromb Time International Ratio 1.9 Sodium Level 132 mmol/L Potassium Level 3.8 mmol/L Chloride Level 100 mmol/L Carbon Dioxide Level 22 mmol/L Anion Gap 10.0 mmol/L Blood Urea Nitrogen 37 mg/dl Creatinine 2.67 mg/dl Est Creatinine Clear Calc Drug Dose 21.4 ml/min Estimated GFR () 19.9 Estimated GFR (Non- 17.2 BUN/Creatinine Ratio 14.0 Random Glucose 86 mg/dl Calcium Level 8.5 mg/dl Assessment and Plan 71 y/o female with a history a-fib, CAD, [place] s/p stent, HTN, HLD, chronic diastolic CHF, COPD, DM II, CKD stage IV, SHI, anxiety/depression, and Henson' s esophagus who presented following multiple falls and fractures. S/p multiple falls, multiple fractures hemothorax--improving -Displaced left rib fractures (ribs 8-9), nondisplaced left rib fracture (rib 10 ), right distal radial fracture, nondisplaced transverse process T10 fracture -Head CT, cervical spine CT, CT abdomen/pelvis, shoulder x-ray no acute disease -Ortho surgery consulted, appreciate recs: Placed in short arm cast 07/16, F/u Dr. Orosco 3-4 weeks -Thoracic surgery following, appreciate recs: Pain control, aggressive pulmonary toilet, incentive spirometry. Hemothorax drained for 700 cc on . PleurX in place. Nerve block from ribs 2-11. PleurX drained 200 cc 07/20. -Continue lidocaine patch. Oxycodone changed to [place] due to lethargy, more alert since med change -Repeat CXR 07/18 shows PleurX, no pneumothorax. Left pleural effusion has decreased in size. Constipation--resolved -Likely secondary to narcotics: Senokot qam and Miralax BID. -KUB shows nonobstructive bowel gas pattern. Moderate gaseous distention in colon. Moderate stool in cecum and ascending colon. -Continue Dulcolax tabs qd Acute pulmonary insufficiency following surgery--resolved -Pt was initially not able to be extubated post surgery, transferred to ICU for vent support. Pt extubated late at night on 07/14, currently on room air. Later transferred to tele. Transfer to med/surg 07/17 Lethargy--resolved -VBG WNL -Ammonia WNL -Oxy changed as above Fevers, possible PNA--fevers resolved -D/C Zosyn -Continue with Levaquin 500 mg PO q48h (renal dosing, CrCl 15). Last dose 07/20 -Urine and blood cultures negative Hyponatremia--stable -Sodium remains stable in 130s -Repeat serum and urine osm 07/13 still low. Urine random sodium 5 -Urine osmolality 07/19 low at 295 Acute renal failure on CKD stage IV--resolved -Baseline creatine around 2.8-2.9 -Creatinine 2.67 on 07/20 -Nephrology consulted, appreciate recs: Continue to hold Lasix. Encourage oral hydration. Suggest DC Mccollum catheter today to allow voiding trial -D/C Mccollum for trial of voiding -Urology consulted, appreciate res: Can remove catheter for trial of voiding when ok with primary team. F/u Dr. Dorsey in 1 month Atrial fibrillation--stable, rate controlled -Continue amiodarone 200 mg PO qd -Thoracic surgery ok to resume warfarin -Warfarin 5 mg PO qd -INR 1.9 on 07/20 HTN, HLD, CAD, h/o [place] s/p stent x 2--stable -Last ELAINE was on 11/17/2016 -Continue Lipitor 40 mg PO qd, Plavix 75 mg PO qd, Lopressor 50 mg PO BID Chronic diastolic CHF -CXR 07/13 shows pulmonary vascular prominence and bronchial wall cuffing increased from prior, suggesting volume overload. No costa pulmonary edema. -Lasix 60 mg IV x 1 on 07/13 -Hold Lasix per nephro recs DM II--HgbA1c 9.6 on 07/09 -Continue home Lantus 15 units SC qam and 20 units SC qpm -Insulin sliding scale -Check BSGs q ac and qhs COPD--wheezing resolved, could be secondary to COPD vs recent fluids -Continue Dulera 2 puffs inh BID -DuoNebs -Current smoker Oral candidiasis--stable/resolving -Continue nystatin solution 5 mL PO QID. Day #9 DVT prophylaxis -Warfarin -SCDs Code Status -Level III, FULL NO MECH VENTILATION Dispo -From home -PT/OT recommend rehab -CM following. Granddaughter, POGiovanni, does not want pt to go to rehab but have home health. Anticipate pt would have very poor prognosis if she returned home given all her comorbidities and weakness. Will attempt to touch base with POA to encourage rehab
[2017-07-20 15:18] VITALS: BP 143/87; PULSE 78; TEMP 37.1; O2SAT 94
[2017-07-20] MEDS: WARFARIN SOD 5 MG TAB PO SCH (15:32)
[2017-07-20 23:45] VITALS: BP 136/69; PULSE 77; TEMP 36.5; O2SAT 95
[2017-07-21] MEDS: HYDROCODONE/ACETAMOPHEN 5/325MG TAB PO PRN (06:07)
[2017-07-21 06:20] VITALS: O2SAT 87
[2017-07-21 06:53] VITALS: BP 123/68; PULSE 69; TEMP 36.5; O2SAT 95
[2017-07-21 07:23] LABS: INR 1.8 (0.9-1.1); PROTHROMBIN TIME (PATIENT) 18.7 SECONDS (9.0-12.0)
[2017-07-21 07:50] LABS: BUN/CREATININE RATIO 13.2 (10-20); CALCIUM 8.3 mg/dl (8.5-10.1); CREATININE 2.65 mg/dl (0.60-1.20); MAGNESIUM 2.4 mg/dl (1.8-2.4); POTASSIUM 4.1 mmol/L (3.5-5.1)
--- NOTE | 2017-07-21 08:20 | SURGERY PROGRESS NOTE ---
DATE: 07/21/2017 Ms. Chappell was seen today. Her lungs sound pretty good. We did drain some fluid from the PleurX and I would keep in at this point, although in general the amount of drainage is decreasing. She only put out 75 mL of serous fluid this morning. This is still going to be simply an issue with pain. I think it is extremely important for Ms. Chappell to move. The fact is she is not tolerating this pain well even though it has now been 12 days since she was admitted and 2 weeks since her fall. At this point, I think that she would be better off having inpatient therapy as I do not think she is going to do well at home. I agree with the primary service in that regard. They are going to discuss this with her granddaughter today. I think that she should be allowed to go to rehab.
[2017-07-21] MEDS: MOMETASONE/FORMOTEROL (DULERA) INH INH SCH ×2 (08:47→21:00)
[2017-07-21] MEDS: AMIODARONE 200 MG TAB PO SCH (08:48)
[2017-07-21] MEDS: NYSTATIN SUSP 500,000 U/5 ML UDC PO SCH ×4 (08:48→21:00)
[2017-07-21] MEDS: ATORVASTATIN 40 MG TAB PO SCH (08:49)
[2017-07-21] MEDS: FERROUS GLUCONATE 324 MG TAB PO SCH (08:49)
[2017-07-21] MEDS: METOPROLOL TARTRATE 50 MG TAB PO SCH ×2 (08:50→22:05)
[2017-07-21] MEDS: CLOPIDOGREL BISULFATE 75 MG TAB PO SCH (08:50)
[2017-07-21] MEDS: CEROVITE ADV FORMULA TAB PO SCH (08:50)
[2017-07-21] MEDS: GABAPENTIN 300 MG CAP PO SCH ×2 (08:50→22:05)
[2017-07-21] MEDS: SENNA 8.6 MG TAB PO SCH (08:50)
[2017-07-21] MEDS: LIDODERM (LIDOCAINE) PATCH 5% TD SCH (08:52)
[2017-07-21] MEDS: INSULIN ASPART 100 UNITS/ML 3 ML PEN SC SCH ×4 (08:56→22:04)
[2017-07-21] MEDS: INSULIN GLARGINE SOLOSTAR 100 UNITS/ML 3 ML PEN SC SCH ×2 (08:57→22:05)
--- NOTE | 2017-07-21 10:24 | Nephrology Progress Note ---
Nephrology Progress Note Date of Service Jul 21, 2017. Chief Complaint Acute renal insufficiency, chronic kidney disease Subjective No acute events overnight. No complaints this morning. Jesenia was resting comfortably in chair. She reports good appetite. She denied any fevers or chills. She denied any pain. Review of Systems A complete review of systems was performed. Pertinent positives are noted above. All other systems are negative. Vital Signs Last 8 Hrs Date Time Temp Pulse Resp B/P (MAP) Pulse Ox O2 Delivery O2 Flow Rate FiO2 07/21/17 07:50 Room Air 07/21/17 06:53 36.5 69 18 123/68 (86) 95 Room Air 07/21/17 06:20 87 Room Air Last Recorded Weight Weight (Kilograms): 91.100 Physical Exam General Appearance: WD/WN, no apparent distress Head: normocephalic, atraumatic Eyes: normal inspection, sclerae normal ENT: normal ENT inspection, pharynx normal Neck: supple, no JVD Respiratory/Chest: lungs clear, no respiratory distress, no accessory muscle use Cardiovascular: regular rate, rhythm, no gallop Abdomen/GI: non tender, soft Extremities/Musculoskelatal: normal inspection, + pedal edema Neurologic/Psych: alert, normal mood/affect Family History Diabetes mellitus FH: gallbladder disease FH: heart disease FH: lung disease FHx: cancer Hypertension Negative for CKD / ESRD Social History Drug Use: none Marital Status: 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) Laboratory Results Past 24 Hours 07/21/17 06:40 Test 07/20/17 11:48 07/20/17 17:00 07/20/17 20:38 07/21/17 06:40 Bedside Glucose 80 mg/dl (70-90) 110 mg/dl (70-90) 143 mg/dl (70-90) Prothrombin Time 18.7 SECONDS (9.0-12.0) Prothromb Time International Ratio 1.8 (0.9-1.1) Anion Gap 7.0 mmol/L (3-11) Est Creatinine Clear Calc Drug Dose 21.8 ml/min Estimated GFR () 20.1 Estimated GFR (Non- 17.3 BUN/Creatinine Ratio 13.2 (10-20) Calcium Level 8.3 mg/dl (8.5-10.1) Magnesium Level 2.4 mg/dl (1.8-2.4) Test 07/21/17 07:55 Bedside Glucose 123 mg/dl (70-90) Allergies Coded Allergies: No Known Allergies (Verified , 07/09/17) Medications Current Inpatient Medications Medications (Trade) Dose Ordered Sig/Dajuan Route Start Time Stop Time Status Last Admin Dose Admin Lidocaine (Lidoderm Patch 5%) 1 patch QAM TD 07/10/17 09:00 08/09/17 08:59 07/21/17 08:52 1 PATCH Miscellaneous (Remove Lidoderm Patch) 1 ea DAILY@21 N/A 07/09/17 21:00 08/08/17 20:59 07/20/17 21:37 1 EA Amiodarone HCl (Cordarone Tab) 200 mg DAILY PO 07/10/17 09:00 08/09/17 08:59 07/21/17 08:48 200 MG Atorvastatin Calcium (Lipitor Tab) 40 mg DAILY PO 07/10/17 09:00 08/09/17 08:59 07/21/17 08:49 40 MG Clopidogrel Bisulfate (plAVix TAB) 75 mg DAILY PO 07/10/17 09:00 08/09/17 08:59 07/21/17 08:50 75 MG Gabapentin (Neurontin Cap) 300 mg BID PO 07/09/17 21:00 08/08/17 20:59 07/21/17 08:50 300 MG Insulin Glargine (Lantus Solostar Pen) 15 units QAM SC 07/10/17 09:00 08/09/17 08:59 07/21/17 08:57 15 UNITS Metoprolol Tartrate (Lopressor Tab) 50 mg BID PO 07/09/17 21:00 08/08/17 20:59 07/21/17 08:50 50 MG Nitroglycerin (Nitrostat Tab) 0.4 mg UD PRN [place] 07/09/17 11:00 08/08/17 10:59 Multivitamins/ Minerals (Multivitamin W/ Minerals Tab) 1 tab DAILY PO 07/10/17 09:00 08/09/17 08:59 07/21/17 08:50 1 TAB Insulin Aspart (novoLOG ASPART) SLIDING SCALE G... ACHS SC 07/09/17 11:00 08/08/17 10:59 07/21/17 08:56 1 UNITS Glucose (Glucose 40% Gel) 15-30 GRAMS 15 GRAMS... UD PRN PO 07/09/17 12:00 08/08/17 11:59 Glucose (Glucose Chew Tab) 4-8 Tablets 4 Tabl... UD PRN PO 07/09/17 12:00 08/08/17 11:59 Dextrose (Dextrose 50% 50ML Syringe) 25-50ML OF 50% DW IV FOR... UD PRN IV 07/09/17 12:00 08/08/17 11:59 07/14/17 13:10 25 ML Glucagon (Glucagon Inj) 1 mg UD PRN SQ 07/09/17 12:00 08/08/17 11:59 Mometasone Furoate/ Formoterol Fumar (Dulera 100-5 Mcg/Act) 2 puffs BID INH 07/11/17 09:00 08/10/17 08:59 07/21/17 08:47 2 PUFFS Ferrous Gluconate (Ferrous Gluconate Tab) 324 mg QAM PO 07/11/17 14:00 08/10/17 13:59 07/21/17 08:49 324 MG Bisacodyl (Dulcolax Supp) 10 mg Q12H PRN [place] 07/12/17 11:00 08/11/17 10:59 Nystatin (Mycostatin Susp) 5 ml QID PO 07/12/17 12:45 07/22/17 12:44 07/21/17 08:48 5 ML Albuterol/ Ipratropium (Duoneb) 3 ml QIDR PRN INH 07/14/17 12:00 08/13/17 11:59 07/15/17 22:18 3 ML Warfarin Sodium (Coumadin Tab) 5 mg DAILY@16 PO 07/17/17 16:00 08/16/17 15:59 07/20/17 15:32 5 MG Acetaminophen/ Hydrocodone Bitart ([place] 5/325 Tab) 1 tab Q6H PRN PO 07/16/17 20:00 07/30/17 19:59 07/21/17 06:07 1 TAB Insulin Glargine (Lantus Solostar Pen) 15 units QPM SC 07/19/17 21:00 08/08/17 20:59 07/20/17 21:33 15 UNITS Senna (Senokot Tab) 8.6 mg QAM PO 07/20/17 09:00 08/11/17 12:44 07/21/17 08:50 8.6 MG Impression (1) Fall in home (2) Fracture of right ulnar styloid (3) 3 ribs fx from fell, 2 recent fells in 2 days, shoulder pain (4) ARF (acute renal failure) (5) Chronic kidney disease, stage 4 (severe) (6) Hyponatremia (7) Anemia (8) Hypertension (9) Diabetes (10) COPD (chronic obstructive pulmonary disease) (11) Narcotic-induced nausea and vomiting Mrs. Chappell was admitted following a mechanical fall. She suffered fractures. Mrs. Chappell has developed narcotic associated nausea and clinical dehydration. Creatinine zach from 2.8 to 3.8 and patient developed hyponatremia. Urinalysis demonstrated high specific gravity and urine sodium c/ w intravascular volume contraction. Renal US revealed 9 cm kidneys w/ cortical thinning. There was no obstruction. Mccollum removed yesterday. Voiding without difficulty. Lower extremity edema increasing. Overall, volume status is acceptable. Renal function is stable at baseline. Serum sodium decreasing. Recommendations ACUTE KIDNEY INJURY: -- Resolved -- Medications are appropriate for renal function CHRONIC KIDNEY DISEASE: -- Creatinine at baseline -- Renal US report 07/14: 9 cm kidneys w/ cortical thinning. No stone/mass/ obstruction HYPONATREMIA: -- Acute on chronic -- Restrict free water intake to 1 L daily -- Restart a low dose loop diuretic, furosemide 10 mg daily -- TEDs for lower extremity edema ANEMIA: -- If Hgb trends downward will consider checking iron stores and providing IV iron therapy
[2017-07-21] MEDS ORDERED: FUROSEMIDE 20 MG TAB PO ONE (11:00)
--- NOTE | 2017-07-21 14:51 | Hospitalist Progress Note ---
Hospitalist Progress Note Date of Service Jul 21, 2017. Subjective Pt evaluation today including: conversation w/ patient, conversation w/ family (spoke with granddaughter/POA at length on phone), physical exam, chart review, lab review, review of inpatient medication list The patient reports fatigue and weakness when walking, as well as dyspnea on exertion. She still reports a productive cough. Earlier this morning the patient was ambulating and O2 sats dropped to 87%, although again patient did not desat when walking with physical therapy later in the day. She states that her left rib pain and right wrist pain are improving and not as constant as before or as sharp. The patient denies fevers, chills, sweats, chest pain, palpitations, claudication, wheezing, nausea, vomiting, abdominal pain, dysuria , hematuria, urinary retention, paralysis, weakness, numbness and tingling. Additional Comments: See HPI for pertinent positives and negatives. All other systems reviewed and negative. Objective Vital Signs Date Time Temp Pulse Resp B/P (MAP) Pulse Ox O2 Delivery O2 Flow Rate FiO2 07/21/17 07:50 Room Air 07/21/17 06:53 36.5 69 18 123/68 (86) 95 Room Air 07/21/17 06:20 87 Room Air 07/20/17 23:45 36.5 77 20 136/69 (91) 95 Room Air 07/20/17 23:45 Room Air 07/20/17 15:25 Room Air 07/20/17 15:18 37.1 78 18 143/87 (105) 94 Room Air Physical Exam Notes: General appearance: +Obese. Well-developed, well-nourished, no apparent distress Head: Normocephalic, atraumatic Eyes: Normal inspection, PERRL, EOMI ENT: +Dry oral mucosa. Normal ENT inspection, hearing grossly normal, pharynx normal Neck: Supple, no JVD, trachea midline Respiratory/Chest: +Decreased breath sounds in bases. Lungs clear to auscultation, no respiratory distress Cardiovascular: +Irregularly irregular, rate controlled. Systolic murmur. No gallop Abdomen/GI: Normal bowel sounds, non-tender, soft Extremities/Musculoskeletal: +Trace pitting edema. Right forearm in short arm cast. No calf tenderness Neurological/Psych: Alert, normal mood/affect, oriented x 3 Skin: +Ecchymoses right inner elbow, right fingers. Normal color, warm/dry, no rash Laboratory Results Last 24 Hours Test 07/20/17 17:00 07/20/17 20:38 07/21/17 06:40 07/21/17 07:55 Bedside Glucose 110 mg/dl 143 mg/dl 123 mg/dl Prothrombin Time 18.7 SECONDS Prothromb Time International Ratio 1.8 Sodium Level 129 mmol/L Potassium Level 4.1 mmol/L Chloride Level 99 mmol/L Carbon Dioxide Level 23 mmol/L Anion Gap 7.0 mmol/L Blood Urea Nitrogen 35 mg/dl Creatinine 2.65 mg/dl Est Creatinine Clear Calc Drug Dose 21.8 ml/min Estimated GFR () 20.1 Estimated GFR (Non- 17.3 BUN/Creatinine Ratio 13.2 Random Glucose 115 mg/dl Calcium Level 8.3 mg/dl Magnesium Level 2.4 mg/dl Test 07/21/17 11:49 Bedside Glucose 119 mg/dl Assessment and Plan 71 y/o female with a history a-fib, CAD, [place] s/p stent, HTN, HLD, chronic diastolic CHF, COPD, DM II, CKD stage IV, SHI, anxiety/depression, and Henson' s esophagus who presented following multiple falls and fractures. S/p multiple falls, multiple fractures hemothorax--improving -Displaced left rib fractures (ribs 8-9), nondisplaced left rib fracture (rib 10 ), right distal radial fracture, nondisplaced transverse process T10 fracture -Head CT, cervical spine CT, CT abdomen/pelvis, shoulder x-ray no acute disease -Ortho surgery consulted, appreciate recs: Placed in short arm cast 07/16, F/u Dr. Orosco 3-4 weeks -Thoracic surgery following, appreciate recs: Pain control, aggressive pulmonary toilet, incentive spirometry. Hemothorax drained for 700 cc on . PleurX in place. Nerve block from ribs 2-11. PleurX drained 75 cc on . Encourage inpatient rehab. -Continue lidocaine patch. Oxycodone changed to [place] due to lethargy, more alert since med change -Repeat CXR 07/18 shows PleurX, no pneumothorax. Left pleural effusion has decreased in size. Constipation--resolved -Likely secondary to narcotics: Senokot qam and Miralax BID. -KUB shows nonobstructive bowel gas pattern. Moderate gaseous distention in colon. Moderate stool in cecum and ascending colon. -Continue Dulcolax tabs qd Acute pulmonary insufficiency following surgery--resolved -Pt was initially not able to be extubated post surgery, transferred to ICU for vent support. Pt extubated late at night on 07/14, currently on room air. Later transferred to tele. Transfer to med/surg 07/17 Lethargy--resolved -VBG WNL -Ammonia WNL -Oxy changed as above Fevers, possible PNA--fevers resolved -D/C Zosyn -Continue with Levaquin 500 mg PO q48h (renal dosing, CrCl 15). Last dose 07/20 -Urine and blood cultures negative Hyponatremia--ongoing -Sodium 129 on 07/21 -Repeat serum and urine osm 07/13 still low. Urine random sodium 5 -Urine osmolality 07/19 low at 295 -1L fluid restriction per nephro recs and resume low dose loop diuretic Acute renal failure on CKD stage IV--resolved -Baseline creatine around 2.8-2.9 -Creatinine 2.67 on 07/20 -Nephrology consulted, appreciate recs: Restrict free water intake to 1L daily. Restart low dose loop diuretic. -Lasix 20 mg PO x1 by nephro -D/C Chun, pt voiding on her own -Urology consulted, appreciate res: Can remove catheter for trial of voiding when ok with primary team. F/u Dr. Dorsey in 1 month Atrial fibrillation--stable, rate controlled -Continue amiodarone 200 mg PO qd -Thoracic surgery ok to resume warfarin -Warfarin 5 mg PO qd -INR 1.8 on 07/21 HTN, HLD, CAD, h/o [place] s/p stent x 2--stable -Last ELAINE was on 11/17/2016 -Continue Lipitor 40 mg PO qd, Plavix 75 mg PO qd, Lopressor 50 mg PO BID Chronic diastolic CHF -CXR 07/13 shows pulmonary vascular prominence and bronchial wall cuffing increased from prior, suggesting volume overload. No costa pulmonary edema. -Lasix 60 mg IV x 1 on 07/13 -Hold Lasix per nephro recs DM II--HgbA1c 9.6 on 07/09 -Continue home Lantus 15 units SC qam and 20 units SC qpm -Insulin sliding scale -Check BSGs q ac and qhs COPD--wheezing resolved, could be secondary to COPD vs recent fluids -Continue Dulera 2 puffs inh BID -DuoNebs -Current smoker Oral candidiasis--stable/resolving -Continue nystatin solution 5 mL PO QID. Day #10 DVT prophylaxis -Warfarin -SCDs Code Status -Level III, FULL NO MECH VENTILATION Dispo -From home -PT/OT recommend rehab -CM following. Spoke at length with granddaughter who is also POA. 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 She is more agreeable to [facility]. She states it is ultimately the patient's decision. Spoke with patient about what she wants. She states, "I want to go to rehab" but she states her does not want her to go. Discussed that her health is what's important and inpt rehab strongly recommended. CM aware.
[2017-07-21 15:25] VITALS: BP 149/78; PULSE 71; O2SAT 92
[2017-07-21 15:44] VITALS: TEMP 36.6
[2017-07-21] MEDS: WARFARIN SOD 5 MG TAB PO SCH (17:01)
[2017-07-21 20:55] VITALS: BP 122/65; PULSE 69; TEMP 36.7; O2SAT 96
[2017-07-21 23:45] VITALS: BP 133/80; PULSE 80; TEMP 37.4; O2SAT 95
[2017-07-22] MEDS: HYDROCODONE/ACETAMOPHEN 5/325MG TAB PO PRN (05:21)
[2017-07-22 06:58] VITALS: BP 121/67; PULSE 69; TEMP 36.6; O2SAT 95
[2017-07-22 07:20] VITALS: O2SAT 95
--- NOTE | 2017-07-22 07:28 | DIAGNOSTIC IMAGING REPORT ---
CHEST ONE VIEW PORTABLE CLINICAL HISTORY: Left sided chest pain. COMPARISON STUDY: Chest CT July 09, 2017 and chest radiograph July 18, 2017. FINDINGS: Several left lower rib fractures are again noted. A small left pleural effusion is noted with left basilar opacity. There is no pneumothorax. Moderate cardiomegaly is unchanged. There is no evidence for pulmonary edema. IMPRESSION: 1. No change in a small left pleural effusion with left basilar opacity. 2. Left apical chest tube in place. No pneumothorax. 3. Redemonstration of several left lower rib fractures. Electronically signed by: Carlos Wang M.D. 07/22/2017 7:27 AM Dictated Date/Time: 07/22/2017 7:19 AM
[2017-07-22] MEDS: MOMETASONE/FORMOTEROL (DULERA) INH INH SCH ×2 (08:50→21:18)
[2017-07-22] MEDS: LIDODERM (LIDOCAINE) PATCH 5% TD SCH (08:50)
[2017-07-22] MEDS: NYSTATIN SUSP 500,000 U/5 ML UDC PO SCH (08:51)
[2017-07-22] MEDS: FERROUS GLUCONATE 324 MG TAB PO SCH (08:55)
[2017-07-22] MEDS: METOPROLOL TARTRATE 50 MG TAB PO SCH ×2 (08:56→21:19)
[2017-07-22] MEDS: ATORVASTATIN 40 MG TAB PO SCH (08:57)
[2017-07-22] MEDS: CEROVITE ADV FORMULA TAB PO SCH (08:57)
[2017-07-22] MEDS: SENNA 8.6 MG TAB PO SCH (08:57)
[2017-07-22] MEDS: CLOPIDOGREL BISULFATE 75 MG TAB PO SCH (08:58)
[2017-07-22] MEDS: GABAPENTIN 300 MG CAP PO SCH ×2 (08:58→21:19)
[2017-07-22] MEDS: AMIODARONE 200 MG TAB PO SCH (08:59)
[2017-07-22] MEDS ORDERED: FUROSEMIDE 20 MG TAB PO SCH (09:00)
[2017-07-22] MEDS: INSULIN ASPART 100 UNITS/ML 3 ML PEN SC SCH ×4 (09:07→21:00)
[2017-07-22] MEDS: INSULIN GLARGINE SOLOSTAR 100 UNITS/ML 3 ML PEN SC SCH ×2 (09:08→21:23)
--- NOTE | 2017-07-22 09:30 | Nephrology Progress Note ---
Nephrology Progress Note Date of Service Jul 22, 2017. Chief Complaint Acute renal insufficiency, chronic kidney disease Subjective No acute events overnight. Jesenia slept well last night. She reports appropriate pain control. She has noticed some improvement in LE edema. She used compression stockings while out of bed yesterday and reported some discomfort but plans to try to use them more today. Appetite good. Review of Systems A complete review of systems was performed. Pertinent positives are noted above. All other systems are negative. Vital Signs Last 8 Hrs Date Time Temp Pulse Resp B/P (MAP) Pulse Ox O2 Delivery O2 Flow Rate FiO2 07/22/17 06:58 36.6 69 16 121/67 (85) 95 Room Air Last Recorded Weight Weight (Kilograms): 90.800 Physical Exam General Appearance: WD/WN, no apparent distress Head: normocephalic, atraumatic Eyes: normal inspection, sclerae normal ENT: normal ENT inspection, pharynx normal Neck: supple, no JVD Respiratory/Chest: lungs clear, no respiratory distress, no accessory muscle use Cardiovascular: regular rate, rhythm, no gallop, no murmur Abdomen/GI: non tender, soft Extremities/Musculoskelatal: normal inspection, no pedal edema, + pertinent finding (R wrist casted; +1 LE edema pitting to the knees BL) Neurologic/Psych: alert, normal mood/affect Family History Diabetes mellitus FH: gallbladder disease FH: heart disease FH: lung disease FHx: cancer Hypertension Negative for CKD / ESRD Social History Drug Use: none Marital Status: 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) Laboratory Results Past 24 Hours Test 07/21/17 11:49 07/21/17 17:05 07/21/17 22:02 07/22/17 08:49 Bedside Glucose 119 mg/dl (70-90) 147 mg/dl (70-90) 175 mg/dl (70-90) Allergies Coded Allergies: No Known Allergies (Verified , 07/09/17) Medications Current Inpatient Medications Medications (Trade) Dose Ordered Sig/Dajuan Route Start Time Stop Time Status Last Admin Dose Admin Lidocaine (Lidoderm Patch 5%) 1 patch QAM TD 07/10/17 09:00 08/09/17 08:59 07/22/17 08:50 1 PATCH Miscellaneous (Remove Lidoderm Patch) 1 ea DAILY@21 N/A 07/09/17 21:00 08/08/17 20:59 07/21/17 21:00 1 EA Amiodarone HCl (Cordarone Tab) 200 mg DAILY PO 07/10/17 09:00 08/09/17 08:59 07/22/17 08:59 200 MG Atorvastatin Calcium (Lipitor Tab) 40 mg DAILY PO 07/10/17 09:00 08/09/17 08:59 07/22/17 08:57 40 MG Clopidogrel Bisulfate (plAVix TAB) 75 mg DAILY PO 07/10/17 09:00 08/09/17 08:59 07/22/17 08:58 75 MG Gabapentin (Neurontin Cap) 300 mg BID PO 07/09/17 21:00 08/08/17 20:59 07/22/17 08:58 300 MG Insulin Glargine (Lantus Solostar Pen) 15 units QAM SC 07/10/17 09:00 08/09/17 08:59 07/22/17 09:08 15 UNITS Metoprolol Tartrate (Lopressor Tab) 50 mg BID PO 07/09/17 21:00 08/08/17 20:59 07/22/17 08:56 50 MG Nitroglycerin (Nitrostat Tab) 0.4 mg UD PRN UT 07/09/17 11:00 08/08/17 10:59 Multivitamins/ Minerals (Multivitamin W/ Minerals Tab) 1 tab DAILY PO 07/10/17 09:00 08/09/17 08:59 07/22/17 08:57 1 TAB Insulin Aspart (novoLOG ASPART) SLIDING SCALE G... ACHS SC 07/09/17 11:00 08/08/17 10:59 07/22/17 09:07 2 UNITS Glucose (Glucose 40% Gel) 15-30 GRAMS 15 GRAMS... UD PRN PO 07/09/17 12:00 08/08/17 11:59 Glucose (Glucose Chew Tab) 4-8 Tablets 4 Tabl... UD PRN PO 07/09/17 12:00 08/08/17 11:59 Dextrose (Dextrose 50% 50ML Syringe) 25-50ML OF 50% DW IV FOR... UD PRN IV 07/09/17 12:00 08/08/17 11:59 07/14/17 13:10 25 ML Glucagon (Glucagon Inj) 1 mg UD PRN SQ 07/09/17 12:00 08/08/17 11:59 Mometasone Furoate/ Formoterol Fumar (Dulera 100-5 Mcg/Act) 2 puffs BID INH 07/11/17 09:00 08/10/17 08:59 07/22/17 08:50 2 PUFFS Ferrous Gluconate (Ferrous Gluconate Tab) 324 mg QAM PO 07/11/17 14:00 08/10/17 13:59 07/22/17 08:55 324 MG Bisacodyl (Dulcolax Supp) 10 mg Q12H PRN [place] 07/12/17 11:00 08/11/17 10:59 Nystatin (Mycostatin Susp) 5 ml QID PO 07/12/17 12:45 07/22/17 12:44 07/22/17 08:51 5 ML Albuterol/ Ipratropium (Duoneb) 3 ml QIDR PRN INH 07/14/17 12:00 08/13/17 11:59 07/15/17 22:18 3 ML Warfarin Sodium (Coumadin Tab) 5 mg DAILY@16 PO 07/17/17 16:00 08/16/17 15:59 07/21/17 17:01 5 MG Acetaminophen/ Hydrocodone Bitart ([place] 5/325 Tab) 1 tab Q6H PRN PO 07/16/17 20:00 07/30/17 19:59 07/22/17 05:21 1 TAB Insulin Glargine (Lantus Solostar Pen) 15 units QPM SC 07/19/17 21:00 08/08/17 20:59 07/21/17 22:05 15 UNITS Senna (Senokot Tab) 8.6 mg QAM PO 07/20/17 09:00 08/11/17 12:44 07/22/17 08:57 8.6 MG Furosemide (Lasix Tab) 20 mg QAM PO 07/22/17 09:00 08/21/17 08:59 07/22/17 08:56 20 MG Impression (1) Fall in home (2) Fracture of right ulnar styloid (3) 3 ribs fx from fell, 2 recent fells in 2 days, shoulder pain (4) ARF (acute renal failure) (5) Chronic kidney disease, stage 4 (severe) (6) Hyponatremia (7) Anemia (8) Hypertension (9) Diabetes (10) COPD (chronic obstructive pulmonary disease) (11) Narcotic-induced nausea and vomiting Mrs. Chappell was admitted following a mechanical fall. She suffered fractures. She developed narcotic associated nausea and clinical dehydration. Creatinine zach from 2.8 to 3.8 and patient developed hyponatremia. Urinalysis demonstrated high specific gravity and urine sodium c/w intravascular volume contraction. Renal US revealed 9 cm kidneys w/ cortical thinning. There was no obstruction. Mccollum removed. Placed by urology initially due to stricture. She is voiding without difficulty. Lower extremity edema uncomfortable. Noted some early improvement with 20 mg furosemide yesterday and compression stocking use. Renal function is stable. Serum sodium dropped yesterday in the setting of fluid retention. Labs pending this morning. Recommendations ACUTE KIDNEY INJURY: -- Resolved -- Medications are appropriate for renal function CHRONIC KIDNEY DISEASE: -- Creatinine at baseline -- Renal US report 07/14: 9 cm kidneys w/ cortical thinning. No stone/mass/ obstruction HYPONATREMIA: -- Acute on chronic -- Restrict free water intake to 1 L daily -- Restart a low dose loop diuretic, furosemide 20 mg daily -- TEDs for lower extremity edema -- Monitor metabolic profile daily while inpatient ANEMIA: -- If Hgb trends downward will consider checking iron stores and providing IV iron therapy
[2017-07-22 09:42] LABS: CALCIUM 8.4 mg/dl (8.5-10.1); CREATININE 2.7 mg/dl (0.60-1.20); POTASSIUM 4.2 mmol/L (3.5-5.1)
--- NOTE | 2017-07-22 14:06 | SURGERY PROGRESS NOTE ---
DATE: 07/22/2017 Ms. Chappell was seen today. She is on room air. She is ambulating more and doing more physically, but she still complains of significant pain in her chest. I think it is good if she goes to a rehab center. She drained about 280 mL today from her PleurX, but her x-ray looks quite good with no evidence of an effusion. All in all, I am quite happy with her. We will follow her up and arrange for her to get drainage of her PleurX until we decreases and we will pull it out in the office.
--- NOTE | 2017-07-22 14:11 | Hospitalist Progress Note ---
Hospitalist Progress Note Date of Service Jul 22, 2017. Subjective Pt evaluation today including: conversation w/ patient, physical exam, chart review, lab review, review of inpatient medication list Patient reports feeling okay. She states she did have some trouble during her walk with physical therapy today as she feels she had been sitting in her chair too long beforehand and was stiff during the walk. She still feels some dyspnea on exertion but denies shortness of breath at rest. She still has a productive cough but it is better. Her left rib pain and right wrist pain persist. She states that there was more drainage from the PleurX today than yesterday. She states she had some sweats last night and her sheets had to be changed. No recorded fevers. The patient denies fevers, chills, chest pain, palpitations, claudication, wheezing, nausea, vomiting, abdominal pain, dysuria , hematuria, urinary retention, paralysis, weakness, numbness and tingling. Additional Comments: See HPI for pertinent positives and negatives. All other systems reviewed and negative. Objective Vital Signs Date Time Temp Pulse Resp B/P (MAP) Pulse Ox O2 Delivery O2 Flow Rate FiO2 07/22/17 07:20 95 Room Air 07/22/17 06:58 36.6 69 16 121/67 (85) 95 Room Air 07/22/17 01:00 Room Air 07/21/17 23:45 37.4 80 16 133/80 (97) 95 Room Air 07/21/17 20:55 36.7 69 16 122/65 (84) 96 Room Air 07/21/17 15:44 36.6 07/21/17 15:35 Room Air 07/21/17 15:25 71 18 149/78 (101) 92 Room Air Physical Exam Notes: General appearance: +Obese. Well-developed, well-nourished, no apparent distress Head: Normocephalic, atraumatic Eyes: Normal inspection, PERRL, EOMI ENT: Normal ENT inspection, hearing grossly normal, pharynx normal Neck: Supple, no JVD, trachea midline Respiratory/Chest: +Decreased breath sounds in bases. Lungs clear to auscultation, no respiratory distress Cardiovascular: +Irregularly irregular, rate controlled. Systolic murmur. No gallop Abdomen/GI: Normal bowel sounds, non-tender, soft Extremities/Musculoskeletal: +Trace pitting edema. Right forearm in short arm cast. No calf tenderness Neurological/Psych: Alert, normal mood/affect, oriented x 3 Skin: +Ecchymoses right inner elbow, right fingers. Normal color, warm/dry, no rash Laboratory Results Last 24 Hours Test 07/21/17 17:05 07/21/17 22:02 07/22/17 07:59 07/22/17 08:49 Bedside Glucose 147 mg/dl 175 mg/dl 133 mg/dl Sodium Level 131 mmol/L Potassium Level 4.2 mmol/L Chloride Level 102 mmol/L Carbon Dioxide Level 27 mmol/L Anion Gap 2.0 mmol/L Blood Urea Nitrogen 30 mg/dl Creatinine 2.70 mg/dl Est Creatinine Clear Calc Drug Dose 21.4 ml/min Estimated GFR () 19.6 Estimated GFR (Non- 16.9 BUN/Creatinine Ratio 11.0 Random Glucose 159 mg/dl Calcium Level 8.4 mg/dl Test 07/22/17 11:54 Bedside Glucose 122 mg/dl Diagnostic Results Reviewed the following studies and agree with interpretation as follows: CHEST ONE VIEW PORTABLE CLINICAL HISTORY: Left sided chest pain. COMPARISON STUDY: Chest CT July 09, 2017 and chest radiograph July 18, 2017. FINDINGS: Several left lower rib fractures are again noted. A small left pleural effusion is noted with left basilar opacity. There is no pneumothorax. Moderate cardiomegaly is unchanged. There is no evidence for pulmonary edema. IMPRESSION: 1. No change in a small left pleural effusion with left basilar opacity. 2. Left apical chest tube in place. No pneumothorax. 3. Redemonstration of several left lower rib fractures. Assessment and Plan 71 y/o female with a history a-fib, CAD, AR s/p stent, HTN, HLD, chronic diastolic CHF, COPD, DM II, CKD stage IV, SHI, anxiety/depression, and Henson' s esophagus who presented following multiple falls and fractures. S/p multiple falls, multiple fractures hemothorax--improving -Displaced left rib fractures (ribs 8-9), nondisplaced left rib fracture (rib 10 ), right distal radial fracture, nondisplaced transverse process T10 fracture -Head CT, cervical spine CT, CT abdomen/pelvis, shoulder x-ray no acute disease -Ortho surgery consulted, appreciate recs: Placed in short arm cast 07/16, F/u Dr. Orosco 3-4 weeks -Thoracic surgery following, appreciate recs: Pain control, aggressive pulmonary toilet, incentive spirometry. Hemothorax drained for 700 cc on . PleurX in place. Nerve block from ribs 2-11. PleurX drained 75 cc on . Encourage inpatient rehab. -Continue lidocaine patch. Oxycodone changed to [place] due to lethargy, more alert since med change -Repeat CXR 07/22 stable. No change in effusion. Chest tube in place. No pneumothorax Constipation--resolved -Likely secondary to narcotics: Senokot qam and Miralax BID. -KUB shows nonobstructive bowel gas pattern. Moderate gaseous distention in colon. Moderate stool in cecum and ascending colon. -Continue Dulcolax tabs qd Acute pulmonary insufficiency following surgery--resolved -Pt was initially not able to be extubated post surgery, transferred to ICU for vent support. Pt extubated late at night on 07/14, currently on room air. Later transferred to tele. Transfer to med/surg 07/17 Lethargy--resolved -VBG WNL -Ammonia WNL -Oxy changed as above Fevers, possible PNA--fevers resolved -D/C Zosyn -Continue with Levaquin 500 mg PO q48h (renal dosing, CrCl 15). Last dose 07/20 -Urine and blood cultures negative Hyponatremia--stable -Sodium 131 on 07/22 -Repeat serum and urine osm 07/13 still low. Urine random sodium 5 -Urine osmolality 07/19 low at 295 -1L fluid restriction per nephro recs and resume low dose loop diuretic Acute renal failure on CKD stage IV--resolved -Baseline creatine around 2.8-2.9 -Creatinine remains stable, at baseline -Nephrology consulted, appreciate recs: Restrict free water intake to 1L daily. Restart low dose loop diuretic. -Lasix 20 mg PO qd -D/C Chun, pt voiding on her own -Urology consulted, appreciate res: Can remove catheter for trial of voiding when ok with primary team. F/u Dr. Dorsey in 1 month Atrial fibrillation--stable, rate controlled -Continue amiodarone 200 mg PO qd -Thoracic surgery ok to resume warfarin -Warfarin 5 mg PO qd -INR 1.8 on 07/21 HTN, HLD, CAD, h/o AR s/p stent x 2--stable -Last ELAINE was on 11/17/2016 -Continue Lipitor 40 mg PO qd, Plavix 75 mg PO qd, Lopressor 50 mg PO BID Chronic diastolic CHF--stable, no acute exacerbation -CXR 07/22 without any failure or edema, pleural effusion stable -Lasix 60 mg IV x 1 on 07/13 -Resume Lasix at 20 mg PO qd DM II--HgbA1c 9.6 on 07/09 -Continue home Lantus 15 units SC qam and 20 units SC qpm -Insulin sliding scale -Check BSGs q ac and qhs COPD--wheezing resolved, could be secondary to COPD vs recent fluids -Continue Dulera 2 puffs inh BID -DuoNebs -Current smoker Oral candidiasis--resolved -Continue nystatin solution 5 mL PO QID. Day #10 completed, can d/c DVT prophylaxis -Warfarin -SCDs Code Status -Level III, FULL NO MECH VENTILATION Dispo -From home -PT/OT recommend rehab -Spoke with pt, and she is motivated to go to rehab. She spoke to her daughter and granddaughter last night telling them she wants to go to rehab and to have them help her convince her that this is best. She tells me that she wants to get better and realizes home might not be the safe option. -Waiting to hear back from [facility], awaiting placement
[2017-07-22 15:21] VITALS: BP 132/73; PULSE 69; TEMP 36.6; O2SAT 95
[2017-07-22] MEDS: WARFARIN SOD 5 MG TAB PO SCH (17:07)
[2017-07-22 21:12] VITALS: BP 135/76; PULSE 68
[2017-07-22 23:28] VITALS: BP 131/71; PULSE 80; TEMP 37.1; O2SAT 95
[2017-07-23] MEDS: HYDROCODONE/ACETAMOPHEN 5/325MG TAB PO PRN (03:12)
[2017-07-23 07:18] VITALS: BP 102/67; PULSE 89; TEMP 36.6; O2SAT 95
[2017-07-23] MEDS: INSULIN ASPART 100 UNITS/ML 3 ML PEN SC SCH ×2 (08:00→12:46)
--- NOTE | 2017-07-23 08:18 | SURGERY PROGRESS NOTE ---
DATE: 07/23/2017 DATE: 07/23/2017 Ms. Chappell was seen today. She is still on room air. She has been ambulating more. She still complains of pain, but her lungs do not sound bad. She continues to put out a significant amount through this PleurX 250 mL of serous fluid today. We are going to continue this for the time being. We are awaiting placement.
[2017-07-23 08:37] VITALS: BP 126/75; PULSE 91
[2017-07-23] MEDS: CLOPIDOGREL BISULFATE 75 MG TAB PO SCH (08:37)
[2017-07-23] MEDS: FERROUS GLUCONATE 324 MG TAB PO SCH (08:37)
[2017-07-23] MEDS: AMIODARONE 200 MG TAB PO SCH (08:37)
[2017-07-23] MEDS: ATORVASTATIN 40 MG TAB PO SCH (08:37)
[2017-07-23] MEDS: SENNA 8.6 MG TAB PO SCH (08:37)
[2017-07-23] MEDS: CEROVITE ADV FORMULA TAB PO SCH (08:37)
[2017-07-23] MEDS: METOPROLOL TARTRATE 50 MG TAB PO SCH (08:37)
[2017-07-23] MEDS: GABAPENTIN 300 MG CAP PO SCH (08:37)
[2017-07-23] MEDS: MOMETASONE/FORMOTEROL (DULERA) INH INH SCH (08:37)
[2017-07-23] MEDS: LIDODERM (LIDOCAINE) PATCH 5% TD SCH (08:38)
--- NOTE | 2017-07-23 08:51 | Nephrology Progress Note ---
Nephrology Progress Note Date of Service Jul 23, 2017. Chief Complaint Acute renal insufficiency, chronic kidney disease Subjective No acute events overnight. No complaints this morning. Pleurx catheter drained 250 ml. Jesenia is breathing comfortably. Pain is controlled. LE edema is improving. No fevers or chills. Review of Systems A complete review of systems was performed. Pertinent positives are noted above. All other systems are negative. Vital Signs Last 8 Hrs Date Time Temp Pulse Resp B/P (MAP) Pulse Ox O2 Delivery O2 Flow Rate FiO2 07/23/17 07:55 Room Air 07/23/17 07:18 36.6 89 19 102/67 (79) 95 Room Air Last Recorded Weight Weight (Kilograms): 90.800 Physical Exam General Appearance: WD/WN, no apparent distress Head: normocephalic, atraumatic Eyes: normal inspection, sclerae normal ENT: normal ENT inspection, pharynx normal Neck: supple, no JVD Respiratory/Chest: lungs clear, no respiratory distress, no accessory muscle use, + pertinent finding (Pleurx catheter intact) Cardiovascular: regular rate, rhythm, no gallop, no murmur Abdomen/GI: non tender, soft Extremities/Musculoskelatal: normal inspection, + pertinent finding (LE compression stockings) Neurologic/Psych: alert, normal mood/affect Family History Diabetes mellitus FH: gallbladder disease FH: heart disease FH: lung disease FHx: cancer Hypertension Negative for CKD / ESRD Social History Drug Use: none Marital Status: Occupation: retired . Retired. [employer] smoker (quit 11/17) Laboratory Results Past 24 Hours 07/22/17 08:49 Test 07/22/17 08:49 07/22/17 11:54 07/22/17 17:16 07/22/17 20:47 Anion Gap 2.0 mmol/L (3-11) Est Creatinine Clear Calc Drug Dose 21.4 ml/min Estimated GFR () 19.6 Estimated GFR (Non- 16.9 BUN/Creatinine Ratio 11.0 (10-20) Calcium Level 8.4 mg/dl (8.5-10.1) Bedside Glucose 122 mg/dl (70-90) 224 mg/dl (70-90) 129 mg/dl (70-90) Test 07/23/17 08:03 07/23/17 08:19 Bedside Glucose 100 mg/dl (70-90) Allergies Coded Allergies: No Known Allergies (Verified , 07/09/17) Medications Current Inpatient Medications Medications (Trade) Dose Ordered Sig/Dajuan Route Start Time Stop Time Status Last Admin Dose Admin Lidocaine (Lidoderm Patch 5%) 1 patch QAM TD 07/10/17 09:00 08/09/17 08:59 07/22/17 08:50 1 PATCH Miscellaneous (Remove Lidoderm Patch) 1 ea DAILY@21 N/A 07/09/17 21:00 08/08/17 20:59 07/22/17 21:18 1 EA Amiodarone HCl (Cordarone Tab) 200 mg DAILY PO 07/10/17 09:00 08/09/17 08:59 07/22/17 08:59 200 MG Atorvastatin Calcium (Lipitor Tab) 40 mg DAILY PO 07/10/17 09:00 08/09/17 08:59 07/22/17 08:57 40 MG Clopidogrel Bisulfate (plAVix TAB) 75 mg DAILY PO 07/10/17 09:00 08/09/17 08:59 07/22/17 08:58 75 MG Gabapentin (Neurontin Cap) 300 mg BID PO 07/09/17 21:00 08/08/17 20:59 07/22/17 21:19 300 MG Insulin Glargine (Lantus Solostar Pen) 15 units QAM SC 07/10/17 09:00 08/09/17 08:59 07/22/17 09:08 15 UNITS Metoprolol Tartrate (Lopressor Tab) 50 mg BID PO 07/09/17 21:00 08/08/17 20:59 07/22/17 21:19 50 MG Nitroglycerin (Nitrostat Tab) 0.4 mg UD PRN UT 07/09/17 11:00 08/08/17 10:59 Multivitamins/ Minerals (Multivitamin W/ Minerals Tab) 1 tab DAILY PO 07/10/17 09:00 08/09/17 08:59 07/22/17 08:57 1 TAB Insulin Aspart (novoLOG ASPART) SLIDING SCALE G... ACHS SC 07/09/17 11:00 08/08/17 10:59 07/22/17 18:38 6 UNITS Glucose (Glucose 40% Gel) 15-30 GRAMS 15 GRAMS... UD PRN PO 07/09/17 12:00 08/08/17 11:59 Glucose (Glucose Chew Tab) 4-8 Tablets 4 Tabl... UD PRN PO 07/09/17 12:00 08/08/17 11:59 Dextrose (Dextrose 50% 50ML Syringe) 25-50ML OF 50% DW IV FOR... UD PRN IV 07/09/17 12:00 08/08/17 11:59 07/14/17 13:10 25 ML Glucagon (Glucagon Inj) 1 mg UD PRN SQ 07/09/17 12:00 08/08/17 11:59 Mometasone Furoate/ Formoterol Fumar (Dulera 100-5 Mcg/Act) 2 puffs BID INH 07/11/17 09:00 08/10/17 08:59 07/22/17 21:18 2 PUFFS Ferrous Gluconate (Ferrous Gluconate Tab) 324 mg QAM PO 07/11/17 14:00 08/10/17 13:59 07/22/17 08:55 324 MG Bisacodyl (Dulcolax Supp) 10 mg Q12H PRN AR 07/12/17 11:00 08/11/17 10:59 Albuterol/ Ipratropium (Duoneb) 3 ml QIDR PRN INH 07/14/17 12:00 08/13/17 11:59 07/15/17 22:18 3 ML Warfarin Sodium (Coumadin Tab) 5 mg DAILY@16 PO 07/17/17 16:00 08/16/17 15:59 07/22/17 17:07 5 MG Acetaminophen/ Hydrocodone Bitart ([place] 5/325 Tab) 1 tab Q6H PRN PO 07/16/17 20:00 07/30/17 19:59 07/23/17 03:12 1 TAB Insulin Glargine (Lantus Solostar Pen) 15 units QPM SC 07/19/17 21:00 08/08/17 20:59 07/22/17 21:23 15 UNITS Senna (Senokot Tab) 8.6 mg QAM PO 07/20/17 09:00 08/11/17 12:44 07/22/17 08:57 8.6 MG Furosemide (Lasix Tab) 20 mg QAM PO 07/22/17 09:00 08/21/17 08:59 07/22/17 08:56 20 MG Impression (1) Fall in home (2) Fracture of right ulnar styloid (3) 3 ribs fx from fell, 2 recent fells in 2 days, shoulder pain (4) ARF (acute renal failure) (5) Chronic kidney disease, stage 4 (severe) (6) Hyponatremia (7) Anemia (8) Hypertension (9) Diabetes (10) COPD (chronic obstructive pulmonary disease) (11) Narcotic-induced nausea and vomiting Mrs. Chappell was admitted following a mechanical fall. She suffered fractures. She developed narcotic associated nausea and clinical dehydration. Creatinine zach from 2.8 to 3.8 and patient developed hyponatremia. Urinalysis demonstrated high specific gravity and urine sodium c/w intravascular volume contraction. Renal US revealed 9 cm kidneys w/ cortical thinning. There was no obstruction. Mccollum removed. Placed by urology initially due to stricture. She is voiding without difficulty. Lower extremity edema became uncomfortable. Furosemide was restarted and she has tolerated the medication well. Metabolic profile pending this morning. Volume status improved. Continue furosemide 20 mg QOD. Recommendations ACUTE KIDNEY INJURY: -- Resolved -- AM labs pending -- Monitor weekly after discharge x 2 weeks (fax results to [phone]) -- Follow up in the nephrology clinic with Dr. Oliver ([phone] to scheduled) within 2-3 weeks of discharge -- Medications are appropriate for renal function CHRONIC KIDNEY DISEASE: -- Creatinine at baseline -- Renal US report 07/14: 9 cm kidneys w/ cortical thinning. No stone/mass/ obstruction HYPONATREMIA: -- Acute on chronic -- Restrict free water intake to 1 L daily -- Furosemide 20 mg every other day -- TEDs for lower extremity edema -- Monitor metabolic profile daily while inpatient ANEMIA: -- Epogen 12698 IU today
[2017-07-23 09:09] LABS: HEMATOCRIT 30.8 % (37-47); MEAN CELL VOLUME 81.1 fL (80-100); MEAN CORPUSCULAR HEMOGLOBIN 25.3 pg (25-34); MEAN CORPUSCULAR HGB CONC 31.2 g/dl (32-36); MEAN PLATELET VOLUME 9.3 fL (7.4-10.4); PLATELET COUNT 373 K/uL (130-400); WHITE BLOOD COUNT 8.32 K/uL (4.8-10.8)
[2017-07-23 09:21] LABS: INR 2.3 (0.9-1.1)
[2017-07-23 09:38] LABS: BUN/CREATININE RATIO 10.9 (10-20); CALCIUM 8.5 mg/dl (8.5-10.1); CREATININE 2.34 mg/dl (0.60-1.20); POTASSIUM 3.7 mmol/L (3.5-5.1)
[2017-07-23] MEDS: INSULIN GLARGINE SOLOSTAR 100 UNITS/ML 3 ML PEN SC SCH (09:57)
[2017-07-23] MEDS ORDERED: EPOETIN ALFA 10,000 UNITS/ML VIAL SQ ONE (14:00)
[2017-07-23] MEDS ORDERED: FRRG PO (14:54)
[2017-07-23] MEDS ORDERED: LSX20 PO (14:54)
[2017-07-23] MEDS ORDERED: LDDP5 TD (14:54)
[2017-07-23] MEDS ORDERED: HYDR-5688 PO (14:54)
--- NOTE | 2017-07-23 14:55 | Discharge Instructions ---
Discharge Instructions Date of Service Jul 23, 2017. Admission Reason for Admission: 3 Ribs Fx From Fall, 2 Recent Falls In 2DAYS, Discharge Discharge Diagnosis / Problem: S/p multiple falls, multiple fractures hemothorax, Discharge Goals Goal(s): Decrease discomfort, Improve function, Increase independence, Improve disease control, Improve nutritional status, Learn about illness, Diagnostic testing, Therapeutic intervention, Prevent Disease Progression, Specific goals Activity Recommendations Activity Level: Up Ad [place], OOB In Chair . Additional Information Patient informed of condition: Yes Advance Directives: Yes DNR: No Level of Care: Acute Rehab Communicable Disease: No Prognosis: Improving Oxygen at (LPM): no Mccollum Catheter: No Instructions / Follow-Up Instructions / Follow-Up You have had multiple falls, multiple fractures hemothorax, for the drainage of PleurX, drainage can be done every other day in the morning , call Dr. Ortiz if have any , he planning to pull PleurX, it out in the office Need to call Dr. Alberto office to see when will be the appointment in his office You have Hyponatremia, likely SIADH, sodium improved after fluid restriction, You need to continue 1L fluid restriction per nephro recs and resume low dose loop diuretic recommend of client business manager You have Acute renal failure on CKD stage IV, stable you need to have labs BMP checked/Monitor weekly after discharge x 2 weeks (fax results to [phone]) You need to Follow up in the nephrology clinic with Dr. Oliver ([phone] to scheduled) within 2-3 weeks of discharge Restrict free water intake to 1 L daily, Furosemide 20 mg every other day You have Atrial fibrillation--stable, rate controlled, on Coumadin, stable, you need to have next PT/INR checked in 2-3 days, report the results to PCP - you need to follow up with your primary care physician in 1 week, - take medication as instructed, never overdose or any misuse, or take with alcohol, because misuse of medicine may cause organ damage or , call your primary care physician if have questions of medicaitons. - call your primary care physician OR go to local emergency room if has any fever/chill, chest pain, shortness of breathing, nausea/vomiting/abdominal pain , facial droop/slurry speech/local weakness, or if has any questions. - fall precaution - diet as instructed - you need to follow up with your subspecialists, such as , , client business manager as instructed - you should understand that it is important to follow up the above instruction , and "not following the above instruction" may cause delayed or missed care of your medical conditions which may cause permanent organ damage and even . Current Hospital Diet Patient's current hospital diet: AHA Diet (Heart Healthy), Diabetes Type 2 Diet Discharge Diet Recommended Diet: AHA Diet (Heart Healthy), Diabetes Type 2 Diet Procedures Procedures Performed: Left Thoracoscopy with Drainage of Pleural Effusion Pending Studies Studies pending at discharge: no Physician Orders On Transfer POLST Discussion: without POLST completion Laboratory Results Hemoglobin A1c Test 07/09/17 08:04 Range/Units Estimated Average Glucose 229 mg/dl Hemoglobin A1c 9.6 H 4.5-5.6 % Medical Emergencies . Who to Call and When: Medical Emergencies: If at any time you feel your situation is an emergency, please call 911 immediately. . Non-Emergent Contact Non-Emergency issues call your: Primary Care Provider, Seedling Sorter, Specialist . . "Provider Documentation" section prepared by Javed Johnson. . Scoop Driver Recommendations Scoop Driver Recommendations: ACTIVITY RECOMMENDATIONS: * Avoid lifting anything. SPECIAL CARE INSTRUCTIONS: * Your cast should be left in place at all times. * Some drainage onto the dressing may occur. This is normal. * If the bandage feels excessively tight, you may loosen the elastic bandage. Then call the physician's office for further instructions. * If possible, keep your hand elevated above the level of your heart for the first 2 post operative days. You may use a sling if necessary. * You should move your fingers regularly (50-100 motions per hour) unless otherwise instructed. SPECIAL PRECAUTIONS: * If you notice increased drainage, fever over 101 degrees F. or severe, unremitting pain, call your physician/office at . * You may have been prescribed pain medication. If you experience nausea and/or skin rash, discontinue this medication and contact our office for an alternative medication. FOLLOW UP VISIT: If appointment is not already scheduled: Please call [facility] to make a follow-up appointment for 1 week after discharge with Dr. Orosco at . Core Measure Problem Core Measures: None
--- NOTE | 2017-07-23 15:19 | Discharge Summary ---
Discharge Summary Date of Service Jul 23, 2017. 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 Medication Reconciliation New Medications: Ferrous Gluconate (Ferrous Gluconate) 324 Mg Tab 324 MG PO QAM for 30 Days, #30 TAB Furosemide (Furosemide) 20 Mg Tab 20 MG PO Q2D@0900 for 30 Days, TAB Hydrocodone/Acetaminophen 5MG/325MG ([place] 5MG/325MG) Tab 1 TAB PO Q6H PRN for Pain for 3 Days, TAB PRN PAIN Lidocaine (Lidocaine) 1 Patch Tdsy 1 PATCH TD QAM for 7 Days Continued Medications: Acetaminophen (Tylenol) 500 Mg Tab 500 MG PO DAILY PRN for Pain, TAB Amiodarone HCl (Amiodarone HCl) 200 Mg Tab 200 MG PO DAILY, TAB Atorvastatin (Lipitor) 40 Mg Tab 40 MG PO DAILY, TAB Clopidogrel Bisulfate (Plavix) 75 Mg Tab 1 TAB PO DAILY, TAB Gabapentin (Neurontin) 300 Mg Cap 300 MG PO BID, CAP Insulin Aspart (Novolog Penfill) 100 Unit/Ml Inj 10 UNITS SC SUPPER Insulin Glargine (Lantus Solostar) 100 Unit/Ml Inj 15 UNITS SC QAM, PEN Insulin Glargine (Lantus Solostar) 100 Unit/Ml Inj 20 UNITS SC QPM, PEN Metoprolol Tartrate (Lopressor) (Lopressor) 50 Mg Tab 1 TAB PO BID, TAB Mometasone Furoate-Formoterol (Dulera 100/5 Mcg) 1 Aer Aer 2 PUFFS INH BID, GM Multiple Vitamins W/ Iron (Daily Vitamin Formula+Ir) 1 Tab Tab 1 TAB PO DAILY Nitroglycerin (Nitrostat) 0.4 Mg Tab 0.4 MG UT PRN, BTL Omeprazole (Prilosec) 20 Mg Cap 20 MG PO BID Sodium Bicarbonate (Sodium Bicarbonate) 650 Mg Tab 1 TAB PO BID Warfarin Sod (Jantoven) 5 Mg Tab 5 MG PO DAILY, TAB Discontinued Medications: Alprazolam (Xanax) 0.5 Mg Tab 0.25 MG PO HS PRN for Anxiety/Agitation, TAB Furosemide (Lasix) 20 Mg Tab 3 TAB PO BID, TAB Potassium Ext Rel (Klor-Con) 20 Meq Tabcr 10 MEQ PO DAILY, TAB Tramadol (Ultram) 50 Mg Tab 1-2 TAB PO Q4H PRN for Pain, #20 TAB For Initial Treatment Discharge Exam Sitting up in chair, no complaints, Has been sitting up and walk in the hallway with engineering assistant Review of Systems: Constitutional: No fever, No chills, No sweats, No weight loss, No weakness , No fatigue, No problem reported Eyes: No worsening of vision, No eye pain, No redness, No discharge, No diplopia, No problem reported ENT: No hearing loss, No unusual epistaxis, No nasal symptoms, No sore throat, No tinnitus, No dental problems, No trouble swallowing, No problem reported Respiratory: No cough, No sputum, No wheezing, No shortness of breath, No dyspnea on exertion, No dyspnea at rest, No hemoptysis, No problem reported Cardiovascular: No chest pain, No orthopnea, No PND, No edema, No claudication, No palpitations, No problem reported Abdomen: No pain, No nausea, No vomiting, No diarrhea, No constipation, No GI bleeding, No problem reported Musculoskeletal: + joint pain (well-controlled) Genitourinary - Female: No dysuria, No urinary frequency, No urinary urgency , No urinary incontinence, No urinary retention, No hematuria, No dysmenorrhea, No menorrhagia, No metrorrhagia, No rash, No vaginal bleeding, No vaginal discharge, No vaginal itching, No vulvodynia, No , No problem reported Neurologic: No memory loss, No paralysis, No weakness, No numbness/tingling , No vertigo, No balance problems, No problem reported Psychiatric: No depression symptoms, No anhedonism, No anxiety, No insomnia , No substance abuse, No problem reported Endocrine: No fatigue, No excessive thirst, No excessive urination, No problem reported Hematologic / Lymphatic: No abnormal bleeding/bruising, No clotting problems , No swollen lymph nodes, No night sweats, No problem reported Integumentary: No rash, No itch, No new/changing skin lesions, No color change, No bleeding, No problem reported Physical Exam: General Appearance: WD/WN, no apparent distress Eyes: normal inspection, PERRL ENT: normal ENT inspection, hearing grossly normal, TMs normal Neck: supple, no adenopathy Respiratory/Chest: chest non-tender, no respiratory distress, no accessory muscle use, + decreased breath sounds Cardiovascular: regular rate, rhythm, no edema, no murmur, normal peripheral pulses Abdomen / GI: normal bowel sounds, non tender, soft, no organomegaly, normal rectal exam Extremities: normal inspection, no calf tenderness, normal capillary refill , no pedal edema, normal range of motion, + swelling (1+) Neurologic/Psychiatric: traveling operator II-XII nml as tested, no motor/sensory deficits , alert, normal mood/affect, normal reflexes, oriented x 3 Skin: normal color, warm/dry, no rash Hospital Course 71 y/o female with a history a-fib, CAD, [place] s/p stent, HTN, HLD, chronic diastolic CHF, COPD, DM II, CKD stage IV, SHI, anxiety/depression, and Henson' s esophagus who presented following multiple falls and fractures. S/p multiple falls, multiple fractures hemothorax--improving Displaced left rib fractures (ribs 8-9), nondisplaced left rib fracture (rib 10) , right distal radial fracture, nondisplaced transverse process T10 fracture Head CT, cervical spine CT, CT abdomen/pelvis, shoulder x-ray no acute disease Ortho surgery consulted, appreciate recs: Placed in short arm cast 07/16, F/u Dr. Orosco 3-4 week Thoracic surgery following, appreciate recs: Pain control, aggressive pulmonary toilet, incentive spirometry. Hemothorax drained for 700 cc on . PleurX in place. Nerve block from ribs 2-11. PleurX drained 75 cc on . Encourage inpatient rehab. Continue lidocaine patch. Oxycodone changed to [place] due to lethargy, more alert since [facility] -Repeat CXR 07/22 stable. No change in effusion. Chest tube in place. No pneumothorax Acute pulmonary insufficiency following surgery--resolved -Pt was initially not able to be extubated post surgery, transferred to ICU for vent support. Pt extubated late at night on 07/14, currently on room air. Later transferred to tele. Transfer to med/surg 07/17 Fevers, possible PNA--fevers resolved -D/C Zosyn -Continue with Levaquin 500 mg PO q48h (renal dosing, CrCl 15). Last dose 07/20 -Urine and blood cultures negative Hyponatremia--stable. Sodium 131 on 07/22. -Repeat serum and urine osm 07/13 still low. Urine random sodium 5, Urine osmolality 07/19 low at 295, will continue 1L fluid restriction per nephro recs and resume low dose loop diuretic Acute renal failure on CKD stage IV--resolved, Baseline creatine around 2.8-2.9 , Creatinine remains stable, at baseline, -Nephrology consulted, appreciate recs : Restrict free water intake to 1L daily. Restart low dose loop diuretic, for now we will continue Lasix 20 mg PO qd You also need to follow-up Urology , F/u Dr. Dorsey in 1 month Atrial fibrillation--stable, rate controlled, Continue amiodarone 200 mg PO qd, Thoracic surgery ok to resume warfarin, Warfarin 5 mg PO qd, INR 1.8 on 07/21, today is 2.3 HTN, HLD, CAD, h/o [place] s/p stent x 2--stable, Last ELAINE was on 11/17/2016, Continue Lipitor 40 mg PO qd, Plavix 75 mg PO qd, Lopressor 50 mg PO BID Chronic diastolic CHF--stable, no acute exacerbation, CXR 07/22 without any failure or edema, pleural effusion stable, current Lasix dose at 20 mg PO qd DM II--HgbA1c 9.6 on 07/09, Continue home Lantus 15 units SC qam and 20 units SC qpm COPD--wheezing resolved, could be secondary to COPD vs recent fluids, Continue Dulera 2 puffs inh BID Oral candidiasis--resolved DVT prophylaxis -Warfarin -SCDs Code Status -Level III, FULL NO [facility] Dispo I discussed with patient and granddaughter about the care plan and discharge plan Instructions / Follow-Up You have had multiple falls, multiple fractures hemothorax, for the drainage of PleurX, drainage can be done every other day in the morning , call Dr. Ortiz if have any , he planning to pull PleurX, it out in the office Need to call Dr. Alberto office to see when will be the appointment in his office You have Hyponatremia, likely SIADH, sodium improved after fluid restriction, You need to continue 1L fluid restriction per nephro recs and resume low dose loop diuretic recommend of supervisor coin machine You have Acute renal failure on CKD stage IV, stable you need to have labs BMP checked/Monitor weekly after discharge x 2 weeks (fax results to [phone]) You need to Follow up in the nephrology clinic with Dr. Oliver ([phone] to scheduled) within 2-3 weeks of discharge Restrict free water intake to 1 L daily, Furosemide 20 mg every other day You have Atrial fibrillation--stable, rate controlled, on Coumadin, stable, you need to have next PT/INR checked in 2-3 days, report the results to PCP - you need to follow up with your primary care physician in 1 week, - take medication as instructed, never overdose or any misuse, or take with alcohol, because misuse of medicine may cause organ damage or , call your primary care physician if have questions of medicaitons. - call your primary care physician OR go to local emergency room if has any fever/chill, chest pain, shortness of breathing, nausea/vomiting/abdominal pain , facial droop/slurry speech/local weakness, or if has any questions. - fall precaution - diet as instructed - you need to follow up with your subspecialists, such as , , supervisor coin machine as instructed - you should understand that it is important to follow up the above instruction , and "not following the above instruction" may cause delayed or missed care of your medical conditions which may cause permanent organ damage and even . Total Time Spent: Greater than 30 minutes This includes examination of the patient, discharge planning, medication reconciliation, and communication with other providers. Discharge Instructions Please refer to the electronic Patient Visit Report (Discharge Instructions) for additional information. Additional Copies To José Miguel Oliver M.D.; Sanchez Barroso M.D.; DOMO KAM MD
[2017-07-23 15:31] VITALS: BP 145/74; PULSE 77; TEMP 37; O2SAT 100
[2017-07-23] MEDS: WARFARIN SOD 5 MG TAB PO SCH (15:41)
[2017-07-24] MEDS ORDERED: FUROSEMIDE 20 MG TAB PO SCH (09:00)
== END 2017-07-23 16:50 | DRG 166 ==
LOC: EDBD 07:29 → C.EDB 07:30 → C.2E 11:02 → ENRESERV 11:41 → C.4E 07-11 13:09 → ENRESERV 07-14 16:22 → C.MSICU 07-14 16:59 → ENRESERV 07-15 12:32 → C.2T 07-15 13:24 → C.2E 07-16 18:57 → ENRESERV 07-17 15:51 → C.MSW 07-17 16:51
PROVIDERS: ADMIT Hospitalist; ATTEND Hospitalist
PROC: 0T7D7DZ Dilation of Urethra with Intraluminal Device, Via Natural or Artificial Opening (ICD-10-PCS; 2017-07-13)
PROC: 5A1935Z Respiratory Ventilation, Less than 24 Consecutive Hours (ICD-10-PCS; 2017-07-14)
PROC: 3E0T3BZ Introduction of Anesthetic Agent into Peripheral Nerves and Plexi, Percutaneous Approach (ICD-10-PCS; principal; 2017-07-14 07:30)
PROC: 0W9 Anatomical Regions, General, Drainage (ICD-10-PCS; principal; 2017-07-14 07:30)
PROC: 0W9B40Z Drainage of Left Pleural Cavity with Drainage Device, Percutaneous Endoscopic Approach (ICD-10-PCS; principal; 2017-07-14 07:30)
DX: S22.42XA Multiple fractures of ribs, left side, initial encounter for closed fracture (principal); S27.1XXA Traumatic hemothorax, initial encounter; J95.1 Acute pulmonary insufficiency following thoracic surgery; J18.9 Pneumonia, unspecified organism; I50.33 Acute on chronic diastolic (congestive) heart failure; J96.21 Acute and chronic respiratory failure with hypoxia; D68.32 Hemorrhagic disorder due to extrinsic circulating anticoagulants; S22.079A Unspecified fracture of T9-T10 vertebra, initial encounter for closed fracture; S52.501A Unspecified fracture of the lower end of right radius, initial encounter for closed fracture; S52.611A Displaced fracture of right ulna styloid process, initial encounter for closed fracture; E87.1 Hypo-osmolality and hyponatremia; I13.0 Hypertensive heart and chronic kidney disease with heart failure and stage 1 through stage 4 chronic kidney disease, or unspecified chronic kidney disease; N18.4 Chronic kidney disease, stage 4 (severe); N17.9 Acute kidney failure, unspecified; D62 Acute posthemorrhagic anemia; E87.4 Mixed disorder of acid-base balance; B37.0 Candidal stomatitis; M25.512 Pain in left shoulder; W01.190A Fall on same level from slipping, tripping and stumbling with subsequent striking against furniture, initial encounter; R29.6 Repeated falls; I48.0 Paroxysmal atrial fibrillation; D72.829 Elevated white blood cell count, unspecified; D50.9 Iron deficiency anemia, unspecified; E11.40 Type 2 diabetes mellitus with diabetic neuropathy, unspecified; E11.51 Type 2 diabetes mellitus with diabetic peripheral angiopathy without gangrene; E11.22 Type 2 diabetes mellitus with diabetic chronic kidney disease; N35.9 Urethral stricture, unspecified; R33.9 Retention of urine, unspecified; K59.03 Drug induced constipation; R11.2 Nausea with vomiting, unspecified; T40.2X5A Adverse effect of other opioids, initial encounter; R53.83 Other fatigue; E78.5 Hyperlipidemia, unspecified; J44.9 Chronic obstructive pulmonary disease, unspecified; F41.9 Anxiety disorder, unspecified; I25.10 Atherosclerotic heart disease of native coronary artery without angina pectoris; K21.9 Gastro-esophageal reflux disease without esophagitis; E66.9 Obesity, unspecified; Z68.28 Body mass index [BMI] 28.0-28.9, adult; Y92.019 Unspecified place in single-family (private) house as the place of occurrence of the external cause; Y99.8 Other external cause status; I25.2 Old myocardial infarction; Z95.5 Presence of coronary angioplasty implant and graft; Z87.01 Personal history of pneumonia (recurrent); Z87.11 Personal history of peptic ulcer disease; Z87.891 Personal history of nicotine dependence; Z79.01 Long term (current) use of anticoagulants; Z79.02 Long term (current) use of antithrombotics/antiplatelets; Z79.4 Long term (current) use of insulin; Z79.899 Other long term (current) drug therapy; Z82.49 Family history of ischemic heart disease and other diseases of the circulatory system; Z83.3 Family history of diabetes mellitus; Z83.6 Family history of other diseases of the respiratory system

== ENCOUNTER → 2017-08-11 | Outpatient (CLI) | payer OTHER ==
[~2017-08-11] MED LIST changes: -ALPR-411 PO; +FRRG PO; -FURO-85 PO; +HYDR-5688 PO; +LDDP5 TD; +LSX20 PO; -POTA20TA16 PO; -TRAM-10 PO
--- NOTE | 2017-08-11 09:18 | DIAGNOSTIC IMAGING REPORT ---
CHEST 2 VIEWS ROUTINE CLINICAL HISTORY: J44.9 Chronic obstructive pulmonary disease COMPARISON STUDY: 07/22/2017 FINDINGS: Emphysematous change considered stable. Mild stable cardiomegaly. Left-sided chest tube unchanged in position. No significant pneumothorax. Chronic pleural reactive changes left base and left costophrenic angle. Lungs otherwise are clear. IMPRESSION: Stable examination compared to the prior exam with an unchanging location of a left-sided chest tube. No postprocedural pneumothorax. The above report was generated using voice recognition software. It may contain grammatical, syntax or spelling errors. Electronically signed by: Jamison Valencia M.D. 08/11/2017 9:17 AM Dictated Date/Time: 08/11/2017 9:13 AM
== END | disposition home or self-care (01) ==
LOC: C.RAD1850 08:47
PROVIDERS: ATTEND Surgery
DX: J44.9 Chronic obstructive pulmonary disease, unspecified (principal)

== ENCOUNTER → 2017-08-24 | Outpatient (CLI) | payer OTHER ==
[2017-08-24 17:43] LABS: HEMATOCRIT 35.3 % (37-47); HEMOGLOBIN 11.2 g/dL (12.0-16.0); MEAN CELL VOLUME 81.1 fL (80-100); MEAN CORPUSCULAR HEMOGLOBIN 25.7 pg (25-34); MEAN CORPUSCULAR HGB CONC 31.7 g/dl (32-36); MEAN PLATELET VOLUME 10.4 fL (7.4-10.4); PLATELET COUNT 422 K/uL (130-400); RED CELL DISTRIBUTION WIDTH CV 18.9 % (11.5-14.5); RED CELL DISTRIBUTION WIDTH SD 55.6 fL (36.4-46.3); WHITE BLOOD COUNT 13.36 K/uL (4.8-10.8)
[2017-08-24 17:59] LABS: INR 3.7 (0.9-1.1)
[2017-08-24 18:01] LABS: BLOOD UREA NITROGEN 39 mg/dl (7-18); CALCIUM 8.9 mg/dl (8.5-10.1); CARBON DIOXIDE 27 mmol/L (21-32); CREATININE 2.77 mg/dl (0.60-1.20); GLUCOSE 60 mg/dl (70-99); POTASSIUM 3.6 mmol/L (3.5-5.1); SODIUM 129 mmol/L (136-145)
== END | disposition home or self-care (01) ==
LOC: C.LABBFT 14:39
PROVIDERS: ATTEND Internal Medicine
DX: I48.91 Unspecified atrial fibrillation (principal); E22.2 Syndrome of inappropriate secretion of antidiuretic hormone; J94.2 Hemothorax

== ENCOUNTER → 2017-08-25 | Outpatient (CLI) | payer OTHER ==
--- NOTE | 2017-08-25 10:10 | DIAGNOSTIC IMAGING REPORT ---
CHEST 2 VIEWS ROUTINE HISTORY: J94.2 Bloody pleural effusion COMPARISON: Chest 08/11/2017. FINDINGS: The left-sided chest tube has been removed. No definite pneumothorax. However, the left lung apex is partially obscured by the patient's chin. Trace bilateral pleural effusions. This has decreased in size on the left. Left basilar airspace opacities have improved. Progressive diffuse interstitial thickening, right greater than left. This may represent developing pulmonary edema. The heart is enlarged. There are low lung volumes. IMPRESSION: 1. Interval removal of the left-sided chest tube. No pneumothorax. 2. Trace left pleural effusion and left basilar densities have improved. 3. Progressive interstitial thickening suggestive of developing pulmonary edema. Electronically signed by: Richard Garcia M.D. 08/25/2017 10:09 AM Dictated Date/Time: 08/25/2017 10:06 AM
== END | disposition home or self-care (01) ==
LOC: C.RAD1850 09:09
PROVIDERS: ATTEND Physician Assistant
DX: J94.2 Hemothorax (principal)

== ENCOUNTER → 2017-09-10 | Outpatient (CLI) | payer OTHER ==
[~2017-09-10] MED LIST changes: +AMIO200T4 PO; +CLOP1TAB15 PO; +DOXY-300 PO; +FURO-85 PO; +NVLG SC; +POTA20TA16 PO; +PRLSR20 PO; +TRAM-10 PO
== END | disposition home or self-care (01) ==
LOC: C.LABBFT 13:12
PROVIDERS: ATTEND Internal Medicine
DX: R39.9 Unspecified symptoms and signs involving the genitourinary system (principal)

== ENCOUNTER → 2017-09-14 | Outpatient (CLI) | payer OTHER ==
[~2017-09-14] MED LIST changes: +CEFD1CAP14 PO; +CMD25 PO; +LCTX PO; +MRLP17X PO; +NUTR-7 PO
[2017-09-14 17:43] LABS: BASO % 0.2 %; BASO ABS # 0.02 K/uL (0-0.2); EOS % 1.1 %; HEMATOCRIT 30.9 % (37-47); HEMOGLOBIN 10.1 g/dL (12.0-16.0); IG# 0.04 K/uL (0.00-0.02); LYMPH % 10.2 %; LYMPH ABS # 0.91 K/uL (1.2-3.4); MEAN CELL VOLUME 77.8 fL (80-100); MEAN CORPUSCULAR HEMOGLOBIN 25.4 pg (25-34); MEAN CORPUSCULAR HGB CONC 32.7 g/dl (32-36); MEAN PLATELET VOLUME 10.3 fL (7.4-10.4); MONO % 4.1 %; MONO ABS # 0.37 K/uL (0.11-0.59); NEUT ABS # 7.48 K/uL (1.4-6.5); PLATELET COUNT 456 K/uL (130-400); RED CELL DISTRIBUTION WIDTH CV 19.7 % (11.5-14.5); RED CELL DISTRIBUTION WIDTH SD 56.4 fL (36.4-46.3); WHITE BLOOD COUNT 8.92 K/uL (4.8-10.8)
[2017-09-14 17:55] LABS: ALBUMIN 2.4 gm/dl (3.4-5.0); ALT/SGPT 60 U/L (12-78); BLOOD UREA NITROGEN 61 mg/dl (7-18); CALCIUM 8.6 mg/dl (8.5-10.1); CARBON DIOXIDE 18 mmol/L (21-32); CREATININE 3.65 mg/dl (0.60-1.20); GLUCOSE 85 mg/dl (70-99); POTASSIUM 4.2 mmol/L (3.5-5.1); SODIUM 126 mmol/L (136-145)
[2017-09-14 17:58] LABS: ALKALINE PHOSPHATASE 252 U/L (45-117); AST/SGOT 51 U/L (15-37); TOTAL PROTEIN 7.2 gm/dl (6.4-8.2)
== END | disposition home or self-care (01) ==
LOC: C.LABBFT 15:38
PROVIDERS: ATTEND Physician Assistant Medical
DX: S31.819A Unspecified open wound of right buttock, initial encounter (principal); R26.9 Unspecified abnormalities of gait and mobility; X58.XXXA Exposure to other specified factors, initial encounter

== ENCOUNTER 2017-09-15 12:03 | Inpatient (IN) | payer OTHER ==
[~2017-09-15] VITALS: Ht 167.6 cm; Wt 80.0 kg
[~2017-09-15 12:03] MED LIST changes: -AMIO200T4 PO; -CEFD1CAP14 PO; -CLOP1TAB15 PO; -CMD25 PO; -DOXY-300 PO; -FURO-85 PO; -LCTX PO; -MRLP17X PO; -NUTR-7 PO; -NVLG SC; -POTA20TA16 PO; -PRLSR20 PO; -TRAM-10 PO
[2017-09-15] MEDS ORDERED: SODIUM CHLORIDE 0.9% 1000ML 500 ML IV STA (12:24)
--- NOTE | 2017-09-15 12:34 | EMERGENCY ROOM VISIT NOTE ---
History Report prepared by Brandon: Fortino Julien Under the Supervision of: Dr. Piyush Fernando M.D. First contact with patient: 12:21 Chief Complaint: ABNORMAL DIAGNOSTIC TESTING Stated Complaint: BLOOD WORK ABNORMAL, SORES ON FEET AND BUTTOCKS History of Present Illness The patient is a 71 year old female who presents to the Emergency Room with complaints of an elevated Coumadin level that was discovered this morning. Per the patient's home health nurse, when she jacquie the patient's blood this morning for her regular screenings, her Coumadin level was found to be elevated at 7.6. She called the patient's physician who referred her to the ER for further evaluation. The patient is on Coumadin secondary to a previous heart attack. She has also been experiencing sores to her right buttock and bilateral feet. Her buttock sore started a couple of weeks ago, but the ones on her feet were from a prior hospital stay in July 2017. She notes that she has been feeling generally weak recently. She denies any fevers, chills, diaphoresis, chest pain, shortness of breath, abdominal pain, nausea, vomiting, abnormal bleeding, or any other abnormal symptoms. Her blood glucose level was elevated last night, but was found to be normal this morning. Source of History: patient, other (Home health nurse) Onset: discovered this morning Position: other (global) Symptom Intensity: 7.6 Quality: other (Elevated Coumadin level) Timing: constant Associated Symptoms: + weakness (generalized), No fevers, No chills, No diaphoresis, No chest pain, No SOB, No nausea, No vomiting, No abdominal pain Note: She has sores to her right buttock and bilateral feet. Review of Systems See HPI for pertinent positives & negatives. A total of 10 systems reviewed and were otherwise negative. Past Medical & Surgical Medical Problems: (1) 3 ribs fx from fell, 2 recent fells in 2 days, shoulder pain (2) AMI (acute myocardial infarction) (3) Anemia (4) Chronic kidney disease (5) Chronic kidney disease, stage 4 (severe) (6) COPD (chronic obstructive pulmonary disease) (7) Diabetes (8) Hypertension (9) Hyponatremia (10) Narcotic-induced nausea and vomiting (11) PNA (pneumonia) Family History Diabetes mellitus FH: gallbladder disease FH: heart disease FH: lung disease FHx: cancer Hypertension Social History Smoking Status: Former Smoker Alcohol Use: none Drug Use: none Marital Status: Housing Status: lives with significant other Occupation Status: retired Current/Historical Medications Scheduled Amiodarone Hcl (Cordarone), 200 MG PO BID Atorvastatin (Lipitor), 40 MG PO HS Clopidogrel (Plavix), 75 MG PO DAILY Doxycycline (Monohydrate) (Doxycycline), 100 MG PO BID Furosemide (Lasix), 20 MG PO Q2D Gabapentin (Neurontin), 300 MG PO HS Insulin Aspart (Novolog), 10 UNITS SC QPM Insulin Glargine (Lantus Solostar), 20 UNITS SC HS Insulin Glargine (Lantus Solostar), 15 UNITS SC QAM Mometasone Furoate-Formoterol (Dulera 100/5 Mcg), 1 AER INH UD Omeprazole (Prilosec), 20 MG PO BID Potassium Ext Rel (Klor-Con), 20 MEQ PO DAILY Scheduled PRN Tramadol (Ultram), 50 MG PO Q6 PRN for Pain Allergies Coded Allergies: No Known Allergies (Verified , 09/15/17) Physical Exam Vital Signs Date Time Temp Pulse Resp B/P (MAP) Pulse Ox O2 Delivery O2 Flow Rate FiO2 09/15/17 16:00 53 18 129/68 98 Room Air 09/15/17 14:11 59 18 145/87 98 Room Air 09/15/17 13:00 56 09/15/17 13:00 94 Room Air 09/15/17 12:15 36.2 88 20 122/65 94 Room Air Physical Exam GENERAL: Patient is in no acute distress. HEENT: No acute trauma, normocephalic atraumatic, mucous membranes dry, no nasal congestion, no scleral icterus. NECK: No stridor, no adenopathy, no meningismus, trachea is midline. LUNGS: Clear to auscultation bilaterally, no wheeze, no rhonchi, breath sounds equal. HEART: Without murmurs gallops or rubs, regular rate and rhythm. ABDOMEN: Soft, nontender, bowel sounds positive, no hernias, no peritonitis. BUTTOCK: There is an ulcer forming to the right superior buttock with some mild surrounding erythema without warmth or drainage. Approximately 1-2 cm in size. EXTREMITIES: No edema or erythema. Some chronic skin change seen. Multiple bandaged ulcers primarily over the posterior heels. NEUROLOGIC: Oriented x 3, no acute motor or sensory deficits, no focal weakness. SKIN: No rash, no jaundice, no diaphoresis. Medical Decision & Procedures ER Provider Diagnostic Interpretation: Radiology results as stated below per my review and radiologist interpretation: CHEST ONE VIEW PORTABLE HISTORY: EVALUATE ALTERED MENTAL STATUS/WEAKNESS COMPARISON: Chest 08/25/2017. FINDINGS: No pneumothorax. Mildly displaced left lower rib fractures are again noted. Trace left pleural effusion and left basilar densities persist. The right lung is clear. The heart remains mildly enlarged. No evidence for pulmonary edema. IMPRESSION: 1. No pneumothorax. 2. Mildly displaced left lower rib fractures, trace left pleural effusion, and left basilar densities are again noted. This is not significantly change. Electronically signed by: Richard Garcia M.D. 09/15/2017 12:42 PM Dictated Date/Time: 09/15/2017 12:40 PM Laboratory Results 09/15/17 12:47 Red Blood Count 3.91, Mean Corpuscular Volume 77.5, Mean Corpuscular Hemoglobin 25.3, Mean Corpuscular Hemoglobin Concent 32.7, Mean Platelet Volume 9.6, Neutrophils (%) (Auto) 84.4, Lymphocytes (%) (Auto) 8.0, Monocytes (%) (Auto) 5.7, Eosinophils (%) (Auto) 1.1, Basophils (%) (Auto) 0.4, Neutrophils # (Auto) 7.49, Lymphocytes # (Auto) 0.71, Monocytes # (Auto) 0.51, Eosinophils # (Auto) 0.10, Basophils # (Auto) 0.04 Test 09/15/17 12:47 09/15/17 13:06 09/15/17 13:42 09/15/17 15:14 White Blood Count 8.89 K/uL (4.8-10.8) Red Blood Count 3.91 M/uL (4.2-5.4) Hemoglobin 9.9 g/dL (12.0-16.0) Hematocrit 30.3 % (37-47) Mean Corpuscular Volume 77.5 fL (80-100) Mean Corpuscular Hemoglobin 25.3 pg (25-34) Mean Corpuscular Hemoglobin Concent 32.7 g/dl (32-36) Platelet Count 420 K/uL (130-400) Mean Platelet Volume 9.6 fL (7.4-10.4) Neutrophils (%) (Auto) 84.4 % Lymphocytes (%) (Auto) 8.0 % Monocytes (%) (Auto) 5.7 % Eosinophils (%) (Auto) 1.1 % Basophils (%) (Auto) 0.4 % Neutrophils # (Auto) 7.49 K/uL (1.4-6.5) Lymphocytes # (Auto) 0.71 K/uL (1.2-3.4) Monocytes # (Auto) 0.51 K/uL (0.11-0.59) Eosinophils # (Auto) 0.10 K/uL (0-0.5) Basophils # (Auto) 0.04 K/uL (0-0.2) RDW Standard Deviation 55.7 fL (36.4-46.3) RDW Coefficient of Variation 19.5 % (11.5-14.5) Immature Granulocyte % (Auto) 0.4 % Immature Granulocyte # (Auto) 0.04 K/uL (0.00-0.02) Est Creatinine Clear Calc Drug Dose 15.7 ml/min Magnesium Level 2.4 mg/dl (1.8-2.4) Total Bilirubin 0.2 mg/dl (0.2-1) Aspartate Amino Transf (AST/SGOT) 66 U/L (15-37) Alanine Aminotransferase (ALT/SGPT) 72 U/L (12-78) Alkaline Phosphatase 255 U/L (45-117) Total Creatine Kinase 52 U/L (26-192) Troponin I 0.016 ng/ml (0-0.045) Total Protein 7.2 gm/dl (6.4-8.2) Albumin 2.3 gm/dl (3.4-5.0) Globulin 4.9 gm/dl (2.5-4.0) Albumin/Globulin Ratio 0.5 (0.9-2) Thyroid Stimulating Hormone (TSH) 1.480 uIu/ml (0.300-4.500) Urine Color YELLOW Urine Appearance CLOUDY (CLEAR) Urine pH 5.5 (4.5-7.5) Urine Specific [place] 1.011 (1.000-1.030) Urine Protein NEG (NEG) Urine Glucose (UA) NEG (NEG) Urine Ketones NEG (NEG) Urine Occult Blood TRACE (NEG) Urine Nitrite NEG (NEG) Urine Bilirubin NEG (NEG) Urine Urobilinogen NEG (NEG) Urine Leukocyte Esterase LARGE (NEG) Urine WBC (Auto) >30 /hpf (0-5) Urine RBC (Auto) 0-4 /hpf (0-4) Urine Hyaline Casts (Auto) 0 /lpf (0-5) Urine Epithelial Cells (Auto) 0-5 /lpf (0-5) Urine Bacteria (Auto) 2+ (NEG) Prothrombin Time 74.1 SECONDS (9.0-12.0) Prothromb Time International Ratio 7.3 (0.9-1.1) Activated Partial Thromboplast Time 54.1 SECONDS (21.0-31.0) Partial Thromboplastin Ratio 2.1 Test 09/15/17 15:31 Laboratory results reviewed by me. Medications Administered Medications (Trade) Dose Ordered Sig/Dajuan Route Start Time Stop Time Status Last Admin Dose Admin Sodium Chloride 500 ml @ 999 mls/hr Q31M STAT IV 09/15/17 12:24 09/15/17 12:54 DC 09/15/17 12:24 999 MLS/HR Ceftriaxone Sodium (Rocephin Inj) 1 gm NOW STAT IV 09/15/17 13:35 09/15/17 13:36 DC 09/15/17 14:11 1 GM Phytonadione (Mephyton Tab) 5 mg NOW STAT PO 09/15/17 14:32 09/15/17 14:38 DC 09/15/17 16:04 5 MG Ondansetron HCl (Zofran Inj) 4 mg NOW STAT IV 09/15/17 15:08 09/15/17 15:09 DC 09/15/17 15:12 4 MG ECG Indication: weakness Rate (beats per minute): 58 Rhythm: atrial fibrillation Findings: other (No ST elevation or PVCs) Change: Patient's electrocardiogram interpreted by me. ED Course 1221: The patient was evaluated in room C12. A complete history and physical exam was performed. 1224: Ordered Sodium Chloride 500 ml @ 999 mls/hr IV 1335: Ordered Rocephin Inj 1 gm IV 1342: Upon reexamination the patient is resting. I discussed results and treatment plan with the patient. She and her daughter verbalize agreement and understanding. I spoke with Dr. Delphine Sorenson of the [facility]. We discussed the patient's results and findings. The patient will be evaluated by him for further management. Medical Decision Differential diagnosis includes but is not limited to dehydration, cellulitis, electrolyte imbalance, anemia, UTI, [place], and rhabdomyolysis. There is no leukocytosis. The patient is anemic but this is baseline looking back at previous testing. Renal panel testing shows some acute renal failure. Sodium is low at about 126. There were a few scattered liver enzyme elevations. Chest x-ray does not show pneumonia or CHF. EKG shows A. fib, no acute ischemic change. Cardiac enzyme testing times one is not consistent with acute cardiac injury. INR is elevated at over 7. Urinalysis does show infection, urine culture is pending. The patient appears to be in a euthyroid state. The patient received IV saline, IV ceftriaxone. She required some IV Zofran for nausea. Because of the elevated INR, she was given 5 mg of oral vitamin K. I spoke to the patient and case management. I do think a hospital stay is warranted given her findings. I suspect the dehydration, the acute renal failure and the UTI have led to her weakness. The lower sodium also could be contributing. Patient does have some skin breakdown and ulcers-case management has been consulted to evaluate her social situation. The on-call hospitalist was consulted. Medication Reconcilliation Current Medication List: was personally reviewed by me Blood Pressure Screening Patient's blood pressure: Normal blood pressure Blood pressure disposition: Did not require urgent referral Consults Time Called: 1338 Consulting Physician: Dr. Delphine Sorenson - [facility] Returned Call: [phone] Discussed the patient's case. The patient will be evaluated for further management. Impression Primary Impression: ARF (acute renal failure) Additional Impressions: Hyponatremia Dehydration UTI (urinary tract infection) Skin ulcer of buttock Supratherapeutic INR Scribe Attestation The scribe's documentation has been prepared under my direction and personally reviewed by me in its entirety. I confirm that the note above accurately reflects all work, treatment, procedures, and medical decision making performed by me. Departure Information Dispostion Being Evaluated By Hospitalist Referrals Sanchez Barroso M.D. (PCP) Patient Instructions [facility] Problem Qualifiers
--- NOTE | 2017-09-15 12:43 | DIAGNOSTIC IMAGING REPORT ---
CHEST ONE VIEW PORTABLE HISTORY: EVALUATE ALTERED MENTAL STATUS/WEAKNESS COMPARISON: Chest 08/25/2017. FINDINGS: No pneumothorax. Mildly displaced left lower rib fractures are again noted. Trace left pleural effusion and left basilar densities persist. The right lung is clear. The heart remains mildly enlarged. No evidence for pulmonary edema. IMPRESSION: 1. No pneumothorax. 2. Mildly displaced left lower rib fractures, trace left pleural effusion, and left basilar densities are again noted. This is not significantly change. Electronically signed by: Richard Garcia M.D. 09/15/2017 12:42 PM Dictated Date/Time: 09/15/2017 12:40 PM
[2017-09-15 13:00] LABS: BASO % 0.4 %; BASO ABS # 0.04 K/uL (0-0.2); EOS % 1.1 %; HEMATOCRIT 30.3 % (37-47); HEMOGLOBIN 9.9 g/dL (12.0-16.0); IG# 0.04 K/uL (0.00-0.02); LYMPH ABS # 0.71 K/uL (1.2-3.4); MEAN CELL VOLUME 77.5 fL (80-100); MEAN CORPUSCULAR HEMOGLOBIN 25.3 pg (25-34); MEAN CORPUSCULAR HGB CONC 32.7 g/dl (32-36); MEAN PLATELET VOLUME 9.6 fL (7.4-10.4); MONO % 5.7 %; MONO ABS # 0.51 K/uL (0.11-0.59); NEUT % 84.4 %; NEUT ABS # 7.49 K/uL (1.4-6.5); PLATELET COUNT 420 K/uL (130-400); RED CELL DISTRIBUTION WIDTH CV 19.5 % (11.5-14.5); RED CELL DISTRIBUTION WIDTH SD 55.7 fL (36.4-46.3); WHITE BLOOD COUNT 8.89 K/uL (4.8-10.8)
[2017-09-15 13:20] LABS: ALBUMIN 2.3 gm/dl (3.4-5.0); CALCIUM 8.9 mg/dl (8.5-10.1); CREATININE 3.73 mg/dl (0.60-1.20); POTASSIUM 4.2 mmol/L (3.5-5.1)
[2017-09-15 13:30] LABS: TOTAL PROTEIN 7.2 gm/dl (6.4-8.2)
[2017-09-15] MEDS ORDERED: CEFTRIAXONE SOD INJ 1 GM ADDVIAL IV STA (13:35)
[2017-09-15] MEDS ORDERED: DOXY-300 PO ×2 (13:37)
[2017-09-15] MEDS ORDERED: MOME100A INH ×2 (13:37)
[2017-09-15] MEDS ORDERED: POTA20TA16 PO ×2 (13:37)
[2017-09-15] MEDS ORDERED: TRAM-10 PO ×2 (13:37)
[2017-09-15] MEDS ORDERED: AMIO200T4 PO ×2 (13:37)
[2017-09-15] MEDS ORDERED: PRLSR20 PO ×2 (13:37)
[2017-09-15] MEDS ORDERED: ATOR-24 PO ×2 (13:37)
[2017-09-15] MEDS ORDERED: CLOP1TAB15 PO ×2 (13:37)
[2017-09-15] MEDS ORDERED: NVLG SC (13:37)
[2017-09-15] MEDS ORDERED: GABA-113 PO ×2 (13:37)
[2017-09-15] MEDS ORDERED: INSDGIPEN SC ×4 (13:37)
[2017-09-15] MEDS ORDERED: FURO-85 PO ×2 (13:37)
[2017-09-15 14:19] LABS: INR 7.3 (0.9-1.1); PTT PATIENT 54.1 SECONDS (21.0-31.0)
[2017-09-15] MEDS ORDERED: PHYTONADIONE 5 MG TAB PO STA (14:32)
[2017-09-15] MEDS ORDERED: TRAMADOL HCL 50 MG TAB PO PRN (15:00)
[2017-09-15] MEDS ORDERED: ONDANSETRON INJ 2 MG/ML 2 ML VIAL IV STA (15:08)
--- NOTE | 2017-09-15 15:31 | History and Physical ---
History & Physical Date & Time of Service: Sep 15, 2017 at 15:04 Chief Complaint: Blood Work Abnormal, Sores On Feet And Buttocks Primary Care Physician: Sanchez Barroso M.D. History of Present Illness Source: patient, family 71 y/o female with a history of chronic hyponatremia, recent fall with multiple fractures, a-fib on Coumadin, CAD/[place] s/p stent, HTN, HLD, chronic diastolic CHF , COPD, DM II, CKD stage IV, anxiety/depression, and Henson's esophagus who was discharged from the hospital recently, home nursing staff noticed that she is having progressive weakness, fatigue and worsening decubitus ulcers, they sent some labs that were abnormal, including Coumadin coagulopathy with INR more than 7, acute and chronic renal failure and decubitus ulcer in lower back and in both heals. She was sent by home visiting nurse to the hospital. In the hospital she was found to have urinary tract infection. Severe deconditioning and infected decubitus ulcers in lower back and both lower extremities. Denies any increased urinary frequency, burning sensation in the urine or hematuria but admits to being incontinent especially at night Past Medical/Surgical History Medical Problems: (1) Diabetes Status: Chronic (2) PNA (pneumonia) Status: Resolved Family History Diabetes mellitus FH: gallbladder disease FH: heart disease FH: lung disease FHx: cancer Hypertension Social History Smoking Status: Former Smoker Drug Use: none Marital Status: Occupational Status: retired Immunizations History of Influenza Vaccine: Yes Influenza Vaccine Date: May 16, 2006 History of Tetanus Vaccine?: Yes History of Pneumococcal: No History of Hepatitis B Vaccine: No Multi-Drug Resistant Organisms History of MDRO: No Allergies Coded Allergies: No Known Allergies (Verified , 09/15/17) Home Medications Scheduled Amiodarone Hcl (Cordarone), 200 MG PO BID Atorvastatin (Lipitor), 40 MG PO HS Clopidogrel (Plavix), 75 MG PO DAILY Doxycycline (Monohydrate) (Doxycycline), 100 MG PO BID Furosemide (Lasix), 20 MG PO Q2D Gabapentin (Neurontin), 300 MG PO HS Insulin Aspart (Novolog), 10 UNITS SC QPM Insulin Glargine (Lantus Solostar), 20 UNITS SC HS Insulin Glargine (Lantus Solostar), 15 UNITS SC QAM Mometasone Furoate-Formoterol (Dulera 100/5 Mcg), 1 AER INH UD Omeprazole (Prilosec), 20 MG PO BID Potassium Ext Rel (Klor-Con), 20 MEQ PO DAILY Scheduled PRN Tramadol (Ultram), 50 MG PO Q6 PRN for Pain Review of Systems Constitutional: + weakness, + fatigue, No fever, No chills, No sweats, No weight loss, No problem reported Eyes: No worsening of vision, No eye pain, No redness, No discharge, No diplopia, No problem reported ENT: No hearing loss, No unusual epistaxis, No nasal symptoms, No sore throat, No tinnitus, No dental problems, No trouble swallowing, No problem reported Respiratory: No cough, No sputum, No wheezing, No shortness of breath, No dyspnea on exertion, No dyspnea at rest, No hemoptysis, No problem reported Cardiovascular: No chest pain, No orthopnea, No PND, No edema, No claudication , No palpitations, No problem reported Abdomen: No pain, No nausea, No vomiting, No diarrhea, No constipation, No GI bleeding, No problem reported Musculoskeletal: No joint pain, No muscle pain, No swelling, No calf pain, No problem reported Genitourinary - Female: No dysuria, No urinary frequency, No urinary urgency, No urinary incontinence, No urinary retention, No hematuria, No dysmenorrhea, No menorrhagia, No metrorrhagia, No rash, No vaginal bleeding, No vaginal discharge, No vaginal itching, No vulvodynia, No , No problem reported Neurologic: No memory loss, No paralysis, No weakness, No numbness/tingling, No vertigo, No balance problems, No problem reported Psychiatric: No depression symptoms, No anhedonism, No anxiety, No insomnia, No substance abuse, No problem reported Endocrine: + fatigue, No excessive thirst, No excessive urination, No problem reported Hematologic / Lymphatic: No abnormal bleeding/bruising, No clotting problems, No swollen lymph nodes, No night sweats, No problem reported Integumentary: + problem reported (ulcers), No rash, No itch, No new/changing skin lesions, No color change, No bleeding Allergic / Immunologic: No environmental allergies, No seasonal allergies, No pet sensitivities, No food allergies, No hives, No frequent infections, No poor healing, No prolonged convalescence, No problem reported Physical Exam Vital Signs Date Time Temp Pulse Resp B/P (MAP) Pulse Ox O2 Delivery O2 Flow Rate FiO2 09/15/17 14:11 59 18 145/87 98 Room Air 09/15/17 13:00 56 09/15/17 13:00 94 Room Air 09/15/17 12:15 36.2 88 20 122/65 94 Room Air General Appearance: no apparent distress, + obese Head: normocephalic, atraumatic Eyes: normal inspection, EOMI ENT: normal ENT inspection, hearing grossly normal Neck: supple Respiratory/Chest: chest non-tender, lungs clear, normal breath sounds, no respiratory distress, no accessory muscle use Cardiovascular: regular rate, rhythm, no edema, no gallop, no JVD, no murmur Abdomen/GI: normal bowel sounds, non tender, soft, no organomegaly, no pulsatile mass Back: normal inspection, no CVA tenderness Extremities/Musculoskelatal: normal inspection, no calf tenderness, normal capillary refill, no pedal edema Neurologic/Psych: harbormaster II-XII nml as tested, no motor/sensory deficits, alert, normal mood/affect, normal reflexes, oriented x 3 Skin: normal color, + pertinent finding (decubitus ulcers on both heals and lateral malluolus , also 2x2 ulcer on lower cack, stage 3) Diagnostics Laboratory Results Results Past 24 Hours Test 09/15/17 12:47 09/15/17 13:06 09/15/17 13:42 Range/Units White Blood Count 8.89 4.8-10.8 K/uL Red Blood Count 3.91 4.2-5.4 M/uL Hemoglobin 9.9 12.0-16.0 g/dL Hematocrit 30.3 37-47 % Mean Corpuscular Volume 77.5 80-100 fL Mean Corpuscular Hemoglobin 25.3 25-34 pg Mean Corpuscular Hemoglobin Concent 32.7 32-36 g/dl Platelet Count 420 130-400 K/uL Mean Platelet Volume 9.6 7.4-10.4 fL Neutrophils (%) (Auto) 84.4 % Lymphocytes (%) (Auto) 8.0 % Monocytes (%) (Auto) 5.7 % Eosinophils (%) (Auto) 1.1 % Basophils (%) (Auto) 0.4 % Neutrophils # (Auto) 7.49 1.4-6.5 K/uL Lymphocytes # (Auto) 0.71 1.2-3.4 K/uL Monocytes # (Auto) 0.51 0.11-0.59 K/uL Eosinophils # (Auto) 0.10 0-0.5 K/uL Basophils # (Auto) 0.04 0-0.2 K/uL RDW Standard Deviation 55.7 36.4-46.3 fL RDW Coefficient of Variation 19.5 11.5-14.5 % Immature Granulocyte % (Auto) 0.4 % Immature Granulocyte # (Auto) 0.04 0.00-0.02 K/uL Sodium Level 126 136-145 mmol/L Potassium Level 4.2 3.5-5.1 mmol/L Chloride Level 97 98-107 mmol/L Carbon Dioxide Level 19 21-32 mmol/L Anion Gap 10.0 3-11 mmol/L Blood Urea Nitrogen 60 7-18 mg/dl Creatinine 3.73 0.60-1.20 mg/dl Est Creatinine Clear Calc Drug Dose 15.7 ml/min Estimated GFR () 13.3 Estimated GFR (Non- 11.5 BUN/Creatinine Ratio 16.0 10-20 Random Glucose 108 70-99 mg/dl Calcium Level 8.9 8.5-10.1 mg/dl Magnesium Level 2.4 1.8-2.4 mg/dl Total Bilirubin 0.2 0.2-1 mg/dl Aspartate Amino Transf (AST/SGOT) 66 15-37 U/L Alanine Aminotransferase (ALT/SGPT) 72 12-78 U/L Alkaline Phosphatase 255 45-117 U/L Total Creatine Kinase 52 26-192 U/L Troponin I 0.016 0-0.045 ng/ml Total Protein 7.2 6.4-8.2 gm/dl Albumin 2.3 3.4-5.0 gm/dl Globulin 4.9 2.5-4.0 gm/dl Albumin/Globulin Ratio 0.5 0.9-2 Thyroid Stimulating Hormone (TSH) 1.480 0.300-4.500 uIu/ml Urine Color YELLOW Urine Appearance CLOUDY CLEAR Urine pH 5.5 4.5-7.5 Urine Specific [place] 1.011 1.000-1.030 Urine Protein NEG NEG Urine Glucose (UA) NEG NEG Urine Ketones NEG NEG Urine Occult Blood TRACE NEG Urine Nitrite NEG NEG Urine Bilirubin NEG NEG Urine Urobilinogen NEG NEG Urine Leukocyte Esterase LARGE NEG Urine WBC (Auto) >30 0-5 /hpf Urine RBC (Auto) 0-4 0-4 /hpf Urine Hyaline Casts (Auto) 0 0-5 /lpf Urine Epithelial Cells (Auto) 0-5 0-5 /lpf Urine Bacteria (Auto) 2+ NEG Prothrombin Time 74.1 9.0-12.0 SECONDS Prothromb Time International Ratio 7.3 0.9-1.1 Activated Partial Thromboplast Time 54.1 21.0-31.0 SECONDS Partial Thromboplastin Ratio 2.1 Microbiology Results 09/15/17 Urine Culture, Received Pending Impression Assessment and Plan 71 y/o female with a history of chronic hyponatremia, recent fall with multiple fractures, a-fib on Coumadin, CAD/[place] s/p stent, HTN, HLD, chronic diastolic CHF , COPD, DM II, CKD stage IV, anxiety/depression, and Henson's esophagus who was discharged from the hospital recently, home nursing noticed abnormal labs, infected decubitus ulcers in lower back and lower extremities, and she was found to have UTI. . Acute and chronic renal failure secondary to decrease oral intake/dehydration Chronic kidney disease stage III Hypovolemic hyponatremia secondary to decrease oral intake Generalized weakness/fatigue/failure to thrive Coumadin coagulopathy Atrial fibrillation on Coumadin Moderate routine caloric malnutrition Present on admission ; decubitus ulcers on both heals and lateral malleolus with Iscar , also 2x2 ulcer on lower back, stage 3 DM II--HgbA1c 9.6 on 07/09 Recent fall with multiple fractures COPD currently stable Essential HTN, controlled HLD, on Lipitor CAD/ [place] s/p 2 stents, Last ELAINE was on 11/17/2016 anxiety/depression Henson's esophagus Chronic diastolic congestive heart failure, stable not in exacerbation Plan She appears to be dehydrated/hypovolemic hyponatremia, last admission she was placed on free water restriction, she appears to be compliant with it Admit to med surge check serum and urine osmolality , [R/O hyponatremia with low osmolality] check TSH and cortisol level order urine sodium and potassium consider sodium tablets if sodium level do not improve Nephrology consult if sodium level fail to rise Consider starting sodium chloride tablets Monitor sodium level closely/every 8 hours, avoid correcting sodium with a rate faster than 6 mmol per day Check orthostatic vitals daily Avoid a rate of correction > 1 mmol/4 hours INF hydration Continue boost supplement Check urine culture, initiate ceftriaxone for UTI Continue doxycycline for infected decubitus ulcers Wound care consult Hold Coumadin and check INR daily, when INR falls below 1.7, please start heparin subcutaneous for DVT prophylaxis If patient gets off Coumadin due to fall risk, she should be on DVT prophylaxis ; like subcutaneous heparin until she regains enough mobility Consult PT/OT As per discussion with patient and her daughter, patient she was to be full resuscitation Resuscitation Status FULL RESUSCITATION VTE Prophylaxis Given or contraindicated: SCD's
[2017-09-15] MEDS ORDERED: GLUCOSE 40% GEL 15 GM TUBE PO PRN (16:30)
[2017-09-15] MEDS ORDERED: MAGNESIUM HYDROXIDE SUSP 30 ML UDC PO PRN (16:30)
[2017-09-15] MEDS ORDERED: ALUMINUM/MAGNESIUM/SIMETH (MAALOX MAX) 30 ML UDC PO PRN (16:30)
[2017-09-15] MEDS ORDERED: DEXTROSE 50% 50 ML SYR IV PRN (16:30)
[2017-09-15] MEDS ORDERED: GLUCOSE 10 TABS/TUBE PO PRN (16:30)
[2017-09-15] MEDS ORDERED: ZOLPIDEM TARTRATE 5 MG TAB PO PRN ×2 (16:30)
[2017-09-15] MEDS ORDERED: POLYETHYLENE (MIRALAX) 17 GM PACK PO PRN (16:30)
[2017-09-15] MEDS ORDERED: GLUCAGON FOR INJ 1 MG VIAL SQ PRN (16:30)
[2017-09-15 18:03] VITALS: O2SAT 97; BMI 23.9
[2017-09-15 18:30] VITALS: BP 129/75; PULSE 56; TEMP 36.4; O2SAT 97
[2017-09-15] MEDS: SODIUM CHLORIDE 0.9% 1000ML 1,000 ML IV SCH (18:43)
[2017-09-15 19:54] LABS: CALCIUM 8.6 mg/dl (8.5-10.1); CREATININE 3.67 mg/dl (0.60-1.20); POTASSIUM 4.1 mmol/L (3.5-5.1)
[2017-09-15] MEDS: AMIODARONE 200 MG TAB PO SCH (21:33)
[2017-09-15] MEDS: ATORVASTATIN 40 MG TAB PO SCH (21:34)
[2017-09-15] MEDS: DOXYCYCLINE HYCLATE 100 MG CAP PO SCH (21:34)
[2017-09-15] MEDS: PANTOprazole SOD 40 MG TAB PO SCH (21:34)
[2017-09-15] MEDS: GABAPENTIN 300 MG CAP PO SCH (21:35)
[2017-09-15] MEDS: INSULIN ASPART 100 UNITS/ML 3 ML PEN SC SCH (21:35)
[2017-09-15] MEDS: INSULIN GLARGINE SOLOSTAR 100 UNITS/ML 3 ML PEN SC SCH (21:38)
[2017-09-15 21:59] LABS: POTASSIUM RANDOM URINE 14.2 mEq/L
[2017-09-15 23:59] VITALS: BP 124/66; PULSE 57; TEMP 36.6; O2SAT 97
[2017-09-16 07:57] LABS: HEMOGLOBIN 9.1 g/dL (12.0-16.0); MEAN CELL VOLUME 77.6 fL (80-100); MEAN CORPUSCULAR HEMOGLOBIN 25.2 pg (25-34); MEAN CORPUSCULAR HGB CONC 32.5 g/dl (32-36); MEAN PLATELET VOLUME 9.4 fL (7.4-10.4); PLATELET COUNT 343 K/uL (130-400); RED CELL DISTRIBUTION WIDTH CV 19.8 % (11.5-14.5); RED CELL DISTRIBUTION WIDTH SD 56.6 fL (36.4-46.3); WHITE BLOOD COUNT 8.38 K/uL (4.8-10.8)
[2017-09-16] MEDS: DOXYCYCLINE HYCLATE 100 MG CAP PO SCH ×2 (08:02→20:55)
[2017-09-16] MEDS: PANTOprazole SOD 40 MG TAB PO SCH ×2 (08:02→20:56)
[2017-09-16] MEDS: LACTOBACILLUS ACIDOPHILUS (FLORANEX) TAB PO SCH ×3 (08:02→17:48)
[2017-09-16] MEDS: CLOPIDOGREL BISULFATE 75 MG TAB PO SCH (08:02)
[2017-09-16] MEDS: AMIODARONE 200 MG TAB PO SCH ×2 (08:02→20:56)
[2017-09-16] MEDS: ONDANSETRON INJ 2 MG/ML 2 ML VIAL IV PRN (08:03)
[2017-09-16] MEDS: ACETAMINOPHEN 325 MG TAB PO PRN ×2 (08:03→21:02)
[2017-09-16 08:13] LABS: INR 3.9 (0.9-1.1)
[2017-09-16 08:17] VITALS: BP_SYST 132; BP_SYST 142; BP_DIAS 68; BP_DIAS 76; PULSE 60; PULSE 68; TEMP 36.6; O2SAT 95
[2017-09-16 08:25] VITALS: BP 132/68; PULSE 68
[2017-09-16 08:26] LABS: BASO % 0.6 %; BASO ABS # 0.05 K/uL (0-0.2); EOS ABS # 0.08 K/uL (0-0.5); IG# 0.02 K/uL (0.00-0.02); LYMPH ABS # 0.67 K/uL (1.2-3.4); MONO % 5.4 %; MONO ABS # 0.45 K/uL (0.11-0.59); NEUT % 84.8 %; NEUT ABS # 7.11 K/uL (1.4-6.5)
[2017-09-16 08:28] LABS: HEMOGLOBIN A1C 7.9 % (4.5-5.6)
[2017-09-16 08:29] LABS: ALBUMIN 2.1 gm/dl (3.4-5.0); CALCIUM 8.5 mg/dl (8.5-10.1); CREATININE 3.47 mg/dl (0.60-1.20); POTASSIUM 4.1 mmol/L (3.5-5.1)
[2017-09-16 08:32] LABS: TOTAL PROTEIN 6.4 gm/dl (6.4-8.2)
[2017-09-16] MEDS: INSULIN ASPART 100 UNITS/ML 3 ML PEN SC SCH ×4 (08:44→21:00)
[2017-09-16] MEDS: INSULIN GLARGINE SOLOSTAR 100 UNITS/ML 3 ML PEN SC SCH ×2 (08:45→21:01)
--- NOTE | 2017-09-16 09:32 | Progress Note ---
Subjective Date of Service: Sep 16, 2017. Subjective Patient's nausea is her biggest problem she is tolerating some crackers and clay nasrin she requests initial nausea medicine the patient does live at home with her son she says she's had struggles getting out of bed most recently and subsequently has suffered a sacral decubitus ulcer stage III present on admission Problem List Medical Problems: (1) Acute coronary syndrome Status: Acute (2) Acute electrocardiogram changes Status: Acute (3) Ankle pain Status: Acute (4) ARF (acute renal failure) Status: Acute (5) Chronic kidney disease Status: Acute (6) Colitis Status: Acute (7) Dehydration Status: Acute (8) Fall in home Status: Acute (9) Fracture of rib of left side Status: Acute (10) Fracture of right distal radius Status: Acute (11) Fracture of right ulnar styloid Status: Acute (12) Frequent falls Status: Acute (13) Hemothorax Status: Acute (14) NSTEMI (non-ST elevated myocardial infarction) Status: Acute (15) Right wrist fracture Status: Acute (16) Skin ulcer of buttock Status: Acute (17) Supratherapeutic INR Status: Acute (18) UTI (urinary tract infection) Status: Acute Review of Systems Constitutional: No fever, No chills Respiratory: No cough, No shortness of breath Cardiac: No chest pain, No edema Abdomen: + pain, + nausea, + vomiting, No diarrhea, No constipation Musculoskeletal: + joint pain, + muscle pain, + swelling Neurologic: + weakness, No memory loss Psychiatric: + depression symptoms, No anhedonism, No anxiety Objective Vital Signs Date Time Temp Pulse Resp B/P (MAP) Pulse Ox O2 Delivery O2 Flow Rate FiO2 09/16/17 08:25 68 132/68 (89) 09/16/17 08:17 36.6 60 17 142/76 (98) 95 Room Air 09/16/17 08:00 Room Air 09/16/17 00:00 Room Air 09/15/17 23:59 36.6 57 18 124/66 (85) 97 Room Air 09/15/17 18:30 36.4 56 16 129/75 (93) 97 Room Air 09/15/17 18:29 60 18 142/54 96 09/15/17 18:08 60 18 142/54 96 Room Air 2/13/18 18:03 97 Room Air 09/15/17 16:00 53 18 129/68 98 Room Air 09/15/17 14:11 59 18 145/87 98 Room Air 09/15/17 13:00 56 09/15/17 13:00 94 Room Air 09/15/17 12:15 36.2 88 20 122/65 94 Room Air Physical Exam General Appearance: WD/WN, + moderate distress Eyes: normal inspection, sclerae normal Respiratory/Chest: chest non-tender, + decreased breath sounds Cardiovascular: regular rate, rhythm, + systolic murmur Abdomen: normal bowel sounds, non tender, soft Extremities: + pertinent finding (has changes of chronic venous stasis or lower extremities) Skin: + pertinent finding (there is a decubitus ulcer at the apex of her gluteal fold this has a pressure dressing on in place at this time) Laboratory Results Last 24 Hours Test 09/15/17 12:47 09/15/17 13:06 09/15/17 13:42 09/15/17 19:14 White Blood Count 8.89 K/uL Red Blood Count 3.91 M/uL Hemoglobin 9.9 g/dL Hematocrit 30.3 % Mean Corpuscular Volume 77.5 fL Mean Corpuscular Hemoglobin 25.3 pg Mean Corpuscular Hemoglobin Concent 32.7 g/dl Platelet Count 420 K/uL Mean Platelet Volume 9.6 fL Neutrophils (%) (Auto) 84.4 % Lymphocytes (%) (Auto) 8.0 % Monocytes (%) (Auto) 5.7 % Eosinophils (%) (Auto) 1.1 % Basophils (%) (Auto) 0.4 % Neutrophils # (Auto) 7.49 K/uL Lymphocytes # (Auto) 0.71 K/uL Monocytes # (Auto) 0.51 K/uL Eosinophils # (Auto) 0.10 K/uL Basophils # (Auto) 0.04 K/uL RDW Standard Deviation 55.7 fL RDW Coefficient of Variation 19.5 % Immature Granulocyte % (Auto) 0.4 % Immature Granulocyte # (Auto) 0.04 K/uL Sodium Level 126 mmol/L 129 mmol/L Potassium Level 4.2 mmol/L 4.1 mmol/L Chloride Level 97 mmol/L 100 mmol/L Carbon Dioxide Level 19 mmol/L 19 mmol/L Anion Gap 10.0 mmol/L 10.0 mmol/L Blood Urea Nitrogen 60 mg/dl 58 mg/dl Creatinine 3.73 mg/dl 3.67 mg/dl Est Creatinine Clear Calc Drug Dose 15.7 ml/min 16.0 ml/min Estimated GFR () 13.3 13.5 Estimated GFR (Non- 11.5 11.7 BUN/Creatinine Ratio 16.0 15.9 Random Glucose 108 mg/dl 94 mg/dl Calcium Level 8.9 mg/dl 8.6 mg/dl Magnesium Level 2.4 mg/dl Total Bilirubin 0.2 mg/dl Aspartate Amino Transf (AST/SGOT) 66 U/L Alanine Aminotransferase (ALT/SGPT) 72 U/L Alkaline Phosphatase 255 U/L Total Creatine Kinase 52 U/L Troponin I 0.016 ng/ml Total Protein 7.2 gm/dl Albumin 2.3 gm/dl Globulin 4.9 gm/dl Albumin/Globulin Ratio 0.5 Thyroid Stimulating Hormone (TSH) 1.480 uIu/ml Urine Color YELLOW Urine Appearance CLOUDY Urine pH 5.5 Urine Specific [place] 1.011 Urine Protein NEG Urine Glucose (UA) NEG Urine Ketones NEG Urine Occult Blood TRACE Urine Nitrite NEG Urine Bilirubin NEG Urine Urobilinogen NEG Urine Leukocyte Esterase LARGE Urine WBC (Auto) >30 /hpf Urine RBC (Auto) 0-4 /hpf Urine Hyaline Casts (Auto) 0 /lpf Urine Epithelial Cells (Auto) 0-5 /lpf Urine Bacteria (Auto) 2+ Prothrombin Time 74.1 SECONDS Prothromb Time International Ratio 7.3 Activated Partial Thromboplast Time 54.1 SECONDS Partial Thromboplastin Ratio 2.1 Osmolality 286 mOsm/kg Test 09/15/17 20:45 09/15/17 21:07 09/16/17 07:25 09/16/17 07:30 Urine Osmolality 244 mOms/kg Urine Random Sodium 32 mEq/L Urine Random Potassium 14.2 mEq/L Bedside Glucose 140 mg/dl 73 mg/dl White Blood Count 8.38 K/uL Red Blood Count 3.61 M/uL Hemoglobin 9.1 g/dL Hematocrit 28.0 % Mean Corpuscular Volume 77.6 fL Mean Corpuscular Hemoglobin 25.2 pg Mean Corpuscular Hemoglobin Concent 32.5 g/dl Platelet Count 343 K/uL Mean Platelet Volume 9.4 fL Neutrophils (%) (Auto) 84.8 % Lymphocytes (%) (Auto) 8.0 % Monocytes (%) (Auto) 5.4 % Eosinophils (%) (Auto) 1.0 % Basophils (%) (Auto) 0.6 % Neutrophils # (Auto) 7.11 K/uL Lymphocytes # (Auto) 0.67 K/uL Monocytes # (Auto) 0.45 K/uL Eosinophils # (Auto) 0.08 K/uL Basophils # (Auto) 0.05 K/uL RDW Standard Deviation 56.6 fL RDW Coefficient of Variation 19.8 % Immature Granulocyte % (Auto) 0.2 % Immature Granulocyte # (Auto) 0.02 K/uL Prothrombin Time 39.8 SECONDS Prothromb Time International Ratio 3.9 Sodium Level 132 mmol/L Potassium Level 4.1 mmol/L Chloride Level 103 mmol/L Carbon Dioxide Level 21 mmol/L Anion Gap 9.0 mmol/L Blood Urea Nitrogen 53 mg/dl Creatinine 3.47 mg/dl Est Creatinine Clear Calc Drug Dose 16.9 ml/min Estimated GFR () 14.5 Estimated GFR (Non- 12.5 BUN/Creatinine Ratio 15.3 Random Glucose 59 mg/dl Estimated Average Glucose 180 mg/dl Hemoglobin A1c 7.9 % Calcium Level 8.5 mg/dl Magnesium Level 2.3 mg/dl Total Bilirubin 0.3 mg/dl Aspartate Amino Transf (AST/SGOT) 72 U/L Alanine Aminotransferase (ALT/SGPT) 72 U/L Alkaline Phosphatase 224 U/L Total Protein 6.4 gm/dl Albumin 2.1 gm/dl Globulin 4.3 gm/dl Albumin/Globulin Ratio 0.5 Cortisol AM Sample 24.30 mcg/dl Assessment and Plan 71 y/o female with a history of chronic hyponatremia, recent fall with multiple fractures, a-fib on Coumadin, CAD/[place] s/p stent, HTN, HLD, chronic diastolic CHF , COPD, DM II, CKD stage IV, anxiety/depression, and Henson's esophagus who was discharged from the hospital recently, home nursing noticed abnormal labs, infected decubitus ulcers in lower back and lower extremities, and she was found to have UTI. Acute and chronic renal failure stage 3 secondary to decrease oral intake/ dehydration, lasix on hold, nephrology consult hydration and follow Hypovolemic hyponatremia secondary to decrease oral intake, hold diuretic ivf given Coumadin coagulopathy, hold coumadin given vitamin K monitor serum INR Atrial fibrillation on Coumadin,CAD/ [place] s/p 2 stents, Last ELAINE was on 11/17/2016 , Chronic diastolic congestive heart failure, stable not in exacerbation, holding lasix eval volume status clinically, continue amiodarone Moderate routine caloric malnutrition, dietary consult and supplements decubitus ulcers on both heals and lateral malleolus with Iscar stage 3 , also 2x2 ulcer on lower back, stage 3. is on ceftriaxone and po doxycycline DM II--HgbA1c 9.6 on 07/09, Lantus bid, plus ssi COPD currently stable anxiety/depression Henson's esophagus continue on ppi
[2017-09-16 10:37] VITALS: O2SAT 95
[2017-09-16] MEDS ORDERED: PROMETHAZINE HCL INJ 12.5 MG in SODIUM CHLORIDE 0.9% 50ML 50 ML IV PRN (11:45)
--- NOTE | 2017-09-16 13:23 | Nephrology Consultation ---
Nephrology Consultation Date & Providers Date of Consultation: Sep 16, 2017. Primary Care Provider: Sanchez Barroso M.D. Referring Provider: Reason for Consultation evaluation and management for DEMETRA and hyponatremia. History of Present Illness Mrs. Chappell is a 71 year old white female with PMH significant for chronic hyponatremia, stage 4 CKD, recent fall with multiple fractures, a-fib on Coumadin, CAD, HTN admitted to hospital with generalized weakness, UTI, coumadin coagulopathy, DEMETRA and hyponatremia. Nephrology consult was requested for further management. EMR records were reviewed in detail during visit. Jesenia was noted to have progressive weakness, fatigue and worsening decubitus ulcers by her home visiting nurse. Labs were send for further evaluation and found to be abnormal, including Coumadin coagulopathy with INR more than 7, DEMETRA with h/o advanced CKD and sent to the hospital. In the hospital she was found to have urinary tract infection, Severe deconditioning and infected decubitus ulcers in lower back and both lower extremities. Currently she is on ceftriaxone empirically for urinary tract infection. She has history of chronic hyponatremia serum sodium stays around 128-132, on admission sodium was 126, and urine osmolality was 274. She was found to be volume depleted, started on IV normal saline and sodium improved to 132 this morning. Also found to have acute kidney injury creatinine was 3.7 slightly improved to 3.5 this morning. Jesenia has stage IV CKD w/ baseline creatinine 2.8, secondary to diabetic nephropathy. She also has AODM, HTN, COPD, anemia, ASCVD s/p NSTEMI 11/17 and chronic atrial fibrillation on Warfarin therapy. She had history mechanical fall at home 07/09/17 and was admitted to hospital. During that admission she was also found to have a small L hemothorax and possible LLL pneumonia. Hospital course was also complicated by acute kidney injury creatinine at that time was 3.9 which eventually improved to her baseline, 2.3 prior to discharge. Creatinine was 2.7 in August. Allergies Coded Allergies: No Known Allergies (Verified , 09/15/17) Inpatient Medications Current Inpatient Medications Medications (Trade) Dose Ordered Sig/Dajuan Route Start Time Stop Time Status Last Admin Dose Admin Amiodarone HCl (Cordarone Tab) 200 mg BID PO 09/15/17 20:00 10/15/17 20:59 09/16/17 08:02 200 MG Atorvastatin Calcium (Lipitor Tab) 40 mg HS PO 09/15/17 21:00 10/15/17 20:59 09/15/17 21:34 40 MG Clopidogrel Bisulfate (plAVix TAB) 75 mg DAILY PO 09/16/17 08:00 10/16/17 08:59 09/16/17 08:02 75 MG Gabapentin (Neurontin Cap) 300 mg HS PO 09/15/17 21:00 10/15/17 20:59 09/15/17 21:35 300 MG Insulin Glargine (Lantus Solostar Pen) 15 units QAM SC 09/16/17 08:00 10/16/17 08:59 09/16/17 08:45 15 UNITS Insulin Glargine (Lantus Solostar Pen) 20 units HS SC 09/15/17 21:00 10/15/17 20:59 09/15/17 21:38 20 UNITS Tramadol HCl (Ultram Tab) 50 mg Q6 PRN PO 09/15/17 15:00 10/15/17 14:59 09/15/17 23:36 50 MG Doxycycline Hyclate (Vibramycin Cap) 100 mg BID PO 09/15/17 20:00 09/25/17 20:59 09/16/17 08:02 100 MG Pantoprazole Sodium (Protonix Tab) 40 mg BID PO 09/15/17 20:00 10/15/17 20:59 09/16/17 08:02 40 MG Sodium Chloride 1,000 ml @ 50 mls/hr Q20H IV 09/15/17 17:50 10/15/17 17:49 09/15/17 18:43 50 MLS/HR Ceftriaxone Sodium 1 gm/ Dextrose 50 ml @ 100 mls/hr Q24H IV 09/16/17 14:00 09/26/17 13:59 Lactobacillus Acidophilus (Floranex Tab) 4 tab TIDM PO 09/16/17 08:00 10/16/17 07:59 09/16/17 08:02 4 TAB Acetaminophen (Tylenol Tab) 650 mg Q4H PRN PO 09/15/17 16:30 10/15/17 16:29 09/16/17 08:03 650 MG Al Hydrox/Mg Hydrox/Simethicone (Maalox Max Susp) 15 ml Q4H PRN PO 09/15/17 16:30 10/15/17 16:29 Magnesium Hydroxide (Milk Of Magnesia Susp) 30 ml Q6H PRN PO 09/15/17 16:30 10/15/17 16:29 Polyethylene (Miralax Powder Packet) 17 gm DAILY PRN PO 09/15/17 16:30 10/15/17 16:29 Ondansetron HCl (Zofran Inj) 4 mg Q6H PRN IV 09/15/17 16:30 10/15/17 16:29 09/16/17 08:03 4 MG Zolpidem Tartrate (Ambien Tab) 5 mg HSZ PRN PO 09/15/17 16:30 10/15/17 16:29 Insulin Aspart (novoLOG ASPART) SLIDING SCALE If C... ACHS SC 09/15/17 21:00 10/15/17 20:59 Glucose (Glucose 40% Gel) 15-30 GRAMS 15 GRAMS... UD PRN PO 09/15/17 16:30 10/15/17 16:29 Glucose (Glucose Chew Tab) 4-8 Tablets 4 Tabl... UD PRN PO 09/15/17 16:30 10/15/17 16:29 Dextrose (Dextrose 50% 50ML Syringe) 25-50ML OF 50% DW IV FOR... UD PRN IV 09/15/17 16:30 10/15/17 16:29 Glucagon (Glucagon Inj) 1 mg UD PRN SQ 09/15/17 16:30 10/15/17 16:29 Family History Diabetes mellitus FH: gallbladder disease FH: heart disease FH: lung disease FHx: cancer Hypertension Social History Smoking Status: Former Smoker Drug Use: none Marital Status: Occupation: retired Review of Systems A complete review of systems was performed. Pertinent positives are noted above. All other systems are negative. Physical Exam Date Time Temp Pulse Resp B/P (MAP) Pulse Ox O2 Delivery O2 Flow Rate FiO2 09/16/17 08:25 68 132/68 (89) 09/16/17 08:17 36.6 60 17 142/76 (98) 95 Room Air 09/16/17 08:00 Room Air 09/16/17 00:00 Room Air 09/15/17 23:59 36.6 57 18 124/66 (85) 97 Room Air 09/15/17 18:30 36.4 56 16 129/75 (93) 97 Room Air 09/15/17 18:29 60 18 142/54 96 09/15/17 18:08 60 18 142/54 96 Room Air 09/15/17 18:03 97 Room Air 09/15/17 16:00 53 18 129/68 98 Room Air 09/15/17 14:11 59 18 145/87 98 Room Air 09/15/17 13:00 56 09/15/17 13:00 94 Room Air 09/15/17 12:15 36.2 88 20 122/65 94 Room Air GENERAL: elderly female, AAA x 3, pleasant, ill-appearing, not in any distress. HEENT: Atraumatic, normocephalic. NECK: Supple, no JVD, no carotid bruit appreciated. ENT: No sinus tenderness MOUTH and THROAT: Moist oral mucosa RESPIRATORY: Normal breathing efforts, no accessory muscle use, clear to auscultation bilaterally, no wheezes or rales. CARDIOVASCULAR: S1, S2 normal, rate rhythm regular. ABDOMEN: Soft, nontender, positive bowel sound. MUSCULOSKELETAL: No joint swelling, erythema or tenderness. Normal range of motion. SKIN: No skin rash EXTREMITY: No lower extremity edema NEURO: No gross focal neurological deficit, speech fluent. PSYCHIATRY: Normal mood and judgment Laboratory Results Last 24 Hours Test 09/15/17 12:47 09/15/17 13:06 09/15/17 13:42 09/15/17 19:14 White Blood Count 8.89 K/uL Red Blood Count 3.91 M/uL Hemoglobin 9.9 g/dL Hematocrit 30.3 % Mean Corpuscular Volume 77.5 fL Mean Corpuscular Hemoglobin 25.3 pg Mean Corpuscular Hemoglobin Concent 32.7 g/dl Platelet Count 420 K/uL Mean Platelet Volume 9.6 fL Neutrophils (%) (Auto) 84.4 % Lymphocytes (%) (Auto) 8.0 % Monocytes (%) (Auto) 5.7 % Eosinophils (%) (Auto) 1.1 % Basophils (%) (Auto) 0.4 % Neutrophils # (Auto) 7.49 K/uL Lymphocytes # (Auto) 0.71 K/uL Monocytes # (Auto) 0.51 K/uL Eosinophils # (Auto) 0.10 K/uL Basophils # (Auto) 0.04 K/uL RDW Standard Deviation 55.7 fL RDW Coefficient of Variation 19.5 % Immature Granulocyte % (Auto) 0.4 % Immature Granulocyte # (Auto) 0.04 K/uL Sodium Level 126 mmol/L 129 mmol/L Potassium Level 4.2 mmol/L 4.1 mmol/L Chloride Level 97 mmol/L 100 mmol/L Carbon Dioxide Level 19 mmol/L 19 mmol/L Anion Gap 10.0 mmol/L 10.0 mmol/L Blood Urea Nitrogen 60 mg/dl 58 mg/dl Creatinine 3.73 mg/dl 3.67 mg/dl Est Creatinine Clear Calc Drug Dose 15.7 ml/min 16.0 ml/min Estimated GFR () 13.3 13.5 Estimated GFR (Non- 11.5 11.7 BUN/Creatinine Ratio 16.0 15.9 Random Glucose 108 mg/dl 94 mg/dl Calcium Level 8.9 mg/dl 8.6 mg/dl Magnesium Level 2.4 mg/dl Total Bilirubin 0.2 mg/dl Aspartate Amino Transf (AST/SGOT) 66 U/L Alanine Aminotransferase (ALT/SGPT) 72 U/L Alkaline Phosphatase 255 U/L Total Creatine Kinase 52 U/L Troponin I 0.016 ng/ml Total Protein 7.2 gm/dl Albumin 2.3 gm/dl Globulin 4.9 gm/dl Albumin/Globulin Ratio 0.5 Thyroid Stimulating Hormone (TSH) 1.480 uIu/ml Urine Color YELLOW Urine Appearance CLOUDY Urine pH 5.5 Urine Specific [place] 1.011 Urine Protein NEG Urine Glucose (UA) NEG Urine Ketones NEG Urine Occult Blood TRACE Urine Nitrite NEG Urine Bilirubin NEG Urine Urobilinogen NEG Urine Leukocyte Esterase LARGE Urine WBC (Auto) >30 /hpf Urine RBC (Auto) 0-4 /hpf Urine Hyaline Casts (Auto) 0 /lpf Urine Epithelial Cells (Auto) 0-5 /lpf Urine Bacteria (Auto) 2+ Prothrombin Time 74.1 SECONDS Prothromb Time International Ratio 7.3 Activated Partial Thromboplast Time 54.1 SECONDS Partial Thromboplastin Ratio 2.1 Osmolality 286 mOsm/kg Test 09/15/17 20:45 09/15/17 21:07 09/16/17 07:25 09/16/17 07:30 Urine Osmolality 244 mOms/kg Urine Random Sodium 32 mEq/L Urine Random Potassium 14.2 mEq/L Bedside Glucose 140 mg/dl 73 mg/dl White Blood Count 8.38 K/uL Red Blood Count 3.61 M/uL Hemoglobin 9.1 g/dL Hematocrit 28.0 % Mean Corpuscular Volume 77.6 fL Mean Corpuscular Hemoglobin 25.2 pg Mean Corpuscular Hemoglobin Concent 32.5 g/dl Platelet Count 343 K/uL Mean Platelet Volume 9.4 fL Neutrophils (%) (Auto) 84.8 % Lymphocytes (%) (Auto) 8.0 % Monocytes (%) (Auto) 5.4 % Eosinophils (%) (Auto) 1.0 % Basophils (%) (Auto) 0.6 % Neutrophils # (Auto) 7.11 K/uL Lymphocytes # (Auto) 0.67 K/uL Monocytes # (Auto) 0.45 K/uL Eosinophils # (Auto) 0.08 K/uL Basophils # (Auto) 0.05 K/uL RDW Standard Deviation 56.6 fL RDW Coefficient of Variation 19.8 % Immature Granulocyte % (Auto) 0.2 % Immature Granulocyte # (Auto) 0.02 K/uL Prothrombin Time 39.8 SECONDS Prothromb Time International Ratio 3.9 Sodium Level 132 mmol/L Potassium Level 4.1 mmol/L Chloride Level 103 mmol/L Carbon Dioxide Level 21 mmol/L Anion Gap 9.0 mmol/L Blood Urea Nitrogen 53 mg/dl Creatinine 3.47 mg/dl Est Creatinine Clear Calc Drug Dose 16.9 ml/min Estimated GFR () 14.5 Estimated GFR (Non- 12.5 BUN/Creatinine Ratio 15.3 Random Glucose 59 mg/dl Estimated Average Glucose 180 mg/dl Hemoglobin A1c 7.9 % Calcium Level 8.5 mg/dl Magnesium Level 2.3 mg/dl Total Bilirubin 0.3 mg/dl Aspartate Amino Transf (AST/SGOT) 72 U/L Alanine Aminotransferase (ALT/SGPT) 72 U/L Alkaline Phosphatase 224 U/L Total Protein 6.4 gm/dl Albumin 2.1 gm/dl Globulin 4.3 gm/dl Albumin/Globulin Ratio 0.5 Cortisol AM Sample 24.30 mcg/dl Impression Jesenia a 71-year-old female with multiple significant comorbidities including advanced CKD, chronic hyponatremia, ambulatory dysfunction and deconditioning, hypertension, diabetes, AFib on anticoagulation with Coumadin, history of coronary artery disease status post prior PTCA with stent, mechanical fall in July 2017. She was admitted to the hospital with generalized weakness, Coumadin coagulopathy acute kidney injury and hyponatremia. On admission she was also found to urinary tract infection, started on ceftriaxone empirically. Stage 4 chronic kidney disease secondary to diabetic nephropathy, baseline creatinine has been around 2.8. Has prior history of recurrent acute kidney injury. On admission creatinine was 3.7 which slightly improved to 3.5 this morning. Sodium was 126, urine osmolality 244, she was started with IV normal saline with improvement serum sodium to 132 this morning. Blood pressure has been acceptable. Volume status acceptable. Recommendations --goal to correct serum sodium no more than 132 today --okay to continue on gentle hydration while p.o. intake remains poor --hold Lasix for now --check serum sodium q.12 hours --continue to monitor renal function and electrolyte with daily renal panel --will check phosphate, iron study --dose medications for GFR less than 10 --avoid nephrotoxic medications --with her history of advanced CKD, previously had discussion with Dr. Oliver and decision was made not to consider renal replacement therapy in future considering her underlying multiple comorbidities Thank you for allowing me to participate in your patient's care. It was a pleasure to see Jesenia
[2017-09-16] MEDS: CEFTRIAXONE SOD INJ 1 GM in DEXTROSE 5% ADD-VANTAGE 50ML 50 ML IV SCH (14:04)
[2017-09-16] MEDS: SODIUM CHLORIDE 0.9% 1000ML 1,000 ML IV SCH (14:04)
[2017-09-16 15:45] VITALS: BMI 28.5
[2017-09-16 16:15] VITALS: BP 117/66; PULSE 59; TEMP 36.5; O2SAT 94
[2017-09-16] MEDS: BOOST GLUCOSE CONTROL PO SCH (17:47)
[2017-09-16] MEDS: GABAPENTIN 300 MG CAP PO SCH (20:55)
[2017-09-16] MEDS: ATORVASTATIN 40 MG TAB PO SCH (20:55)
[2017-09-16 23:20] VITALS: BP 92/52; PULSE 62; TEMP 36.7; O2SAT 94
[2017-09-17 07:25] VITALS: BP 118/67; PULSE 68; TEMP 36.9; O2SAT 94
[2017-09-17] MEDS: BOOST GLUCOSE CONTROL PO SCH ×3 (07:57→17:26)
[2017-09-17] MEDS: DOXYCYCLINE HYCLATE 100 MG CAP PO SCH ×2 (07:59→21:45)
[2017-09-17] MEDS: CLOPIDOGREL BISULFATE 75 MG TAB PO SCH (07:59)
[2017-09-17] MEDS: PANTOprazole SOD 40 MG TAB PO SCH ×2 (07:59→21:46)
[2017-09-17] MEDS: LACTOBACILLUS ACIDOPHILUS (FLORANEX) TAB PO SCH ×3 (07:59→17:26)
[2017-09-17] MEDS: AMIODARONE 200 MG TAB PO SCH ×2 (07:59→21:46)
[2017-09-17 08:31] LABS: HEMATOCRIT 27.5 % (37-47); HEMOGLOBIN 8.7 g/dL (12.0-16.0); MEAN CELL VOLUME 78.8 fL (80-100); MEAN CORPUSCULAR HEMOGLOBIN 24.9 pg (25-34); MEAN CORPUSCULAR HGB CONC 31.6 g/dl (32-36); MEAN PLATELET VOLUME 9.5 fL (7.4-10.4); PLATELET COUNT 329 K/uL (130-400); RED CELL DISTRIBUTION WIDTH SD 57.9 fL (36.4-46.3); WHITE BLOOD COUNT 7.69 K/uL (4.8-10.8)
[2017-09-17 08:40] LABS: INR 2.3 (0.9-1.1)
[2017-09-17] MEDS: INSULIN ASPART 100 UNITS/ML 3 ML PEN SC SCH ×4 (08:43→21:43)
[2017-09-17] MEDS: SODIUM CHLORIDE 0.9% 1000ML 1,000 ML IV SCH (08:44)
[2017-09-17] MEDS: INSULIN GLARGINE SOLOSTAR 100 UNITS/ML 3 ML PEN SC SCH ×2 (08:47→21:44)
[2017-09-17 09:02] LABS: CALCIUM 8.6 mg/dl (8.5-10.1); CREATININE 3.08 mg/dl (0.60-1.20); POTASSIUM 3.9 mmol/L (3.5-5.1)
[2017-09-17 09:08] LABS: PHOSPHORUS 2.9 mg/dl (2.5-4.9)
[2017-09-17] MEDS ORDERED: NURSING VERBAL MED ORDER ONE (10:30)
--- NOTE | 2017-09-17 12:05 | Nephrology Progress Note ---
Nephrology Progress Note Date of Service Sep 17, 2017. Chief Complaint F/U for DEMETRA and hyponatremia. Dominic Ba was seen and examined in her room this morning. Overall she is feeling better except having some pain in both heel. Denies shortness of breath or chest pain. Appetite improved. Renal function started to improve creatinine 3.1. Serum sodium improved to 134. Blood pressure stable. Review of Systems A complete review of systems was performed. Pertinent positives are noted above. All other systems are negative. Vital Signs Last 8 Hrs Date Time Temp Pulse Resp B/P (MAP) Pulse Ox O2 Delivery O2 Flow Rate FiO2 09/17/17 08:00 Room Air 09/17/17 07:25 36.9 68 18 118/67 (84) 94 Last Recorded Weight Weight (Kilograms): 80.000 Physical Exam GENERAL: Elderly female, AAA x 3, pleasant, healthy-appearing, not in any distress. NECK: Supple, no JVD. RESPIRATORY: Normal breathing efforts, no accessory muscle use, clear to auscultation bilaterally, no wheezes or rales. CARDIOVASCULAR: S1, S2 normal, rate rhythm regular. EXTREMITY: Ulcer in bilateral heel, no edema NEURO: speech fluent. PSYCHIATRY: Normal mood and judgment Family History Diabetes mellitus FH: gallbladder disease FH: heart disease FH: lung disease FHx: cancer Hypertension Social History Drug Use: none Marital Status: Occupation: retired Laboratory Results Past 24 Hours 09/17/17 07:53 09/16/17 16:33 09/17/17 07:53 Test 09/16/17 16:38 09/16/17 17:46 09/16/17 20:39 09/17/17 07:35 Bedside Glucose 58 mg/dl (70-90) 146 mg/dl (70-90) 171 mg/dl (70-90) 65 mg/dl (70-90) Test 09/17/17 07:53 09/17/17 07:54 09/17/17 08:19 09/17/17 11:29 Red Blood Count 3.49 M/uL (4.2-5.4) Mean Corpuscular Volume 78.8 fL (80-100) Mean Corpuscular Hemoglobin 24.9 pg (25-34) Mean Corpuscular Hemoglobin Concent 31.6 g/dl (32-36) RDW Standard Deviation 57.9 fL (36.4-46.3) RDW Coefficient of Variation 20.0 % (11.5-14.5) Mean Platelet Volume 9.5 fL (7.4-10.4) Prothrombin Time 23.6 SECONDS (9.0-12.0) Prothromb Time International Ratio 2.3 (0.9-1.1) Anion Gap 8.0 mmol/L (3-11) Est Creatinine Clear Calc Drug Dose 17.6 ml/min Estimated GFR () 16.7 Estimated GFR (Non- 14.4 BUN/Creatinine Ratio 13.8 (10-20) Calcium Level 8.6 mg/dl (8.5-10.1) Phosphorus Level 2.9 mg/dl (2.5-4.9) Iron Level 23 mcg/dl (35-150) Total Iron Binding Capacity 213 mcg/dl (250-450) Transferrin 160 mg/dl (200-360) Transferrin % Saturation 10 % (15-50) Ferritin 217.4 ng/ml (8.0-388.0) Bedside Glucose 69 mg/dl (70-90) 76 mg/dl (70-90) 180 mg/dl (70-90) Allergies Coded Allergies: No Known Allergies (Verified , 09/15/17) Medications Current Inpatient Medications Medications (Trade) Dose Ordered Sig/Dajuan Route Start Time Stop Time Status Last Admin Dose Admin Amiodarone HCl (Cordarone Tab) 200 mg BID PO 09/15/17 20:00 10/15/17 20:59 09/17/17 07:59 200 MG Atorvastatin Calcium (Lipitor Tab) 40 mg HS PO 09/15/17 21:00 10/15/17 20:59 09/16/17 20:55 40 MG Clopidogrel Bisulfate (plAVix TAB) 75 mg DAILY PO 09/16/17 08:00 10/16/17 08:59 09/17/17 07:59 75 MG Gabapentin (Neurontin Cap) 300 mg HS PO 09/15/17 21:00 10/15/17 20:59 09/16/17 20:55 300 MG Insulin Glargine (Lantus Solostar Pen) 15 units QAM SC 09/16/17 08:00 10/16/17 08:59 09/17/17 08:47 15 UNITS Insulin Glargine (Lantus Solostar Pen) 20 units HS SC 09/15/17 21:00 10/15/17 20:59 09/16/17 21:01 20 UNITS Tramadol HCl (Ultram Tab) 50 mg Q6 PRN PO 09/15/17 15:00 10/15/17 14:59 09/15/17 23:36 50 MG Doxycycline Hyclate (Vibramycin Cap) 100 mg BID PO 09/15/17 20:00 09/25/17 20:59 09/17/17 07:59 100 MG Pantoprazole Sodium (Protonix Tab) 40 mg BID PO 09/15/17 20:00 10/15/17 20:59 09/17/17 07:59 40 MG Ceftriaxone Sodium 1 gm/ Dextrose 50 ml @ 100 mls/hr Q24H IV 09/16/17 14:00 09/26/17 13:59 09/16/17 14:04 100 MLS/HR Lactobacillus Acidophilus (Floranex Tab) 4 tab TIDM PO 09/16/17 08:00 10/16/17 07:59 09/17/17 07:59 4 TAB Acetaminophen (Tylenol Tab) 650 mg Q4H PRN PO 09/15/17 16:30 10/15/17 16:29 09/16/17 21:02 650 MG Al Hydrox/Mg Hydrox/Simethicone (Maalox Max Susp) 15 ml Q4H PRN PO 09/15/17 16:30 10/15/17 16:29 Magnesium Hydroxide (Milk Of Magnesia Susp) 30 ml Q6H PRN PO 09/15/17 16:30 10/15/17 16:29 Polyethylene (Miralax Powder Packet) 17 gm DAILY PRN PO 09/15/17 16:30 10/15/17 16:29 Ondansetron HCl (Zofran Inj) 4 mg Q6H PRN IV 09/15/17 16:30 10/15/17 16:29 09/16/17 08:03 4 MG Zolpidem Tartrate (Ambien Tab) 5 mg HSZ PRN PO 09/15/17 16:30 10/15/17 16:29 Insulin Aspart (novoLOG ASPART) SLIDING SCALE If C... ACHS SC 09/15/17 21:00 10/15/17 20:59 09/16/17 21:00 1 UNITS Glucose (Glucose 40% Gel) 15-30 GRAMS 15 GRAMS... UD PRN PO 09/15/17 16:30 10/15/17 16:29 Glucose (Glucose Chew Tab) 4-8 Tablets 4 Tabl... UD PRN PO 09/15/17 16:30 10/15/17 16:29 Dextrose (Dextrose 50% 50ML Syringe) 25-50ML OF 50% DW IV FOR... UD PRN IV 09/15/17 16:30 10/15/17 16:29 Glucagon (Glucagon Inj) 1 mg UD PRN SQ 09/15/17 16:30 10/15/17 16:29 Promethazine HCl 12.5 mg/Sodium Chloride 50.5 ml @ 204 mls/hr Q6H PRN IV 09/16/17 11:45 10/16/17 11:44 09/16/17 12:00 204 MLS/HR Enteral Nutritional Formula (Boost Glucose Control) 1 can TIDM PO 09/16/17 17:00 10/16/17 16:59 09/16/17 17:47 1 CAN Impression Jesenia a 71-year-old female with multiple significant comorbidities including advanced CKD, chronic hyponatremia, ambulatory dysfunction and deconditioning, hypertension, diabetes, AFib on anticoagulation with Coumadin, history of coronary artery disease status post prior PTCA with stent, mechanical fall in July 2017. She was admitted to the hospital with generalized weakness, Coumadin coagulopathy acute kidney injury and hyponatremia. On admission she was also found to urinary tract infection, started on ceftriaxone empirically. Stage 4 chronic kidney disease secondary to diabetic nephropathy, baseline creatinine has been around 2.8. Has prior history of recurrent acute kidney injury. On admission creatinine was 3.7 which slightly improved to 3.5 this morning. Sodium was 126, urine osmolality 244, she was started with IV normal saline with improvement serum sodium to 132 this morning. Blood pressure has been acceptable. Volume status acceptable. Recommendations --discontinue IV fluid, encourage p.o. intake --continue to monitor renal function and electrolyte with daily renal panel as renal function improving and getting close to baseline. --will start on Venofer 200 milligram IV every other day for total 1 gram --dose medications for GFR less than 10 --avoid nephrotoxic medications Will follow
[2017-09-17] MEDS: CEFTRIAXONE SOD INJ 1 GM in DEXTROSE 5% ADD-VANTAGE 50ML 50 ML IV SCH (12:39)
[2017-09-17 15:14] VITALS: Ht 167.6 cm; Wt 80.0 kg
[2017-09-17 15:31] VITALS: BP 134/70; PULSE 78; TEMP 36.9; O2SAT 93
--- NOTE | 2017-09-17 18:07 | Progress Note ---
Subjective Date of Service: Sep 17, 2017. Subjective this pt feels improved, no nausea and is tolerating diet well, she has back pain at decubitus site. Problem List Medical Problems: (1) Acute coronary syndrome Status: Acute (2) Acute electrocardiogram changes Status: Acute (3) Ankle pain Status: Acute (4) ARF (acute renal failure) Status: Acute (5) Chronic kidney disease Status: Acute (6) Colitis Status: Acute (7) Dehydration Status: Acute (8) Fall in home Status: Acute (9) Fracture of rib of left side Status: Acute (10) Fracture of right distal radius Status: Acute (11) Fracture of right ulnar styloid Status: Acute (12) Frequent falls Status: Acute (13) Hemothorax Status: Acute (14) NSTEMI (non-ST elevated myocardial infarction) Status: Acute (15) Right wrist fracture Status: Acute (16) Skin ulcer of buttock Status: Acute (17) Supratherapeutic INR Status: Acute (18) UTI (urinary tract infection) Status: Acute Review of Systems Constitutional: No fever, No chills, No sweats Cardiac: No chest pain, No edema Abdomen: No pain, No nausea, No vomiting, No diarrhea Musculoskeletal: No joint pain, No muscle pain Female : No dysuria, No urinary frequency, No hematuria Psychiatric: No depression symptoms, No anhedonism Objective Vital Signs Date Time Temp Pulse Resp B/P (MAP) Pulse Ox O2 Delivery O2 Flow Rate FiO2 09/17/17 15:31 36.9 78 16 134/70 (91) 93 09/17/17 08:00 Room Air 09/17/17 07:25 36.9 68 18 118/67 (84) 94 09/17/17 00:00 Room Air 09/16/17 23:20 36.7 62 20 92/52 (65) 94 Room Air 09/16/17 19:42 Room Air Physical Exam General Appearance: WD/WN, + mild distress Eyes: normal inspection, sclerae normal Neck: supple, no carotid bruits Respiratory/Chest: chest non-tender, lungs clear, normal breath sounds Cardiovascular: regular rate, rhythm, no murmur Abdomen: normal bowel sounds, non tender, soft Extremities: no pedal edema, no calf tenderness Neurologic/Psychiatric: alert, oriented x 3 Skin: + pertinent finding (chronic venous stasis changes to le and decubitus on sacrum ) Laboratory Results Last 24 Hours Test 09/16/17 20:39 09/17/17 07:35 09/17/17 07:53 09/17/17 07:54 Bedside Glucose 171 mg/dl 65 mg/dl 69 mg/dl White Blood Count 7.69 K/uL Red Blood Count 3.49 M/uL Hemoglobin 8.7 g/dL Hematocrit 27.5 % Mean Corpuscular Volume 78.8 fL Mean Corpuscular Hemoglobin 24.9 pg Mean Corpuscular Hemoglobin Concent 31.6 g/dl RDW Standard Deviation 57.9 fL RDW Coefficient of Variation 20.0 % Platelet Count 329 K/uL Mean Platelet Volume 9.5 fL Prothrombin Time 23.6 SECONDS Prothromb Time International Ratio 2.3 Sodium Level 134 mmol/L Potassium Level 3.9 mmol/L Chloride Level 107 mmol/L Carbon Dioxide Level 19 mmol/L Anion Gap 8.0 mmol/L Blood Urea Nitrogen 42 mg/dl Creatinine 3.08 mg/dl Est Creatinine Clear Calc Drug Dose 17.6 ml/min Estimated GFR () 16.7 Estimated GFR (Non- 14.4 BUN/Creatinine Ratio 13.8 Random Glucose 65 mg/dl Calcium Level 8.6 mg/dl Phosphorus Level 2.9 mg/dl Iron Level 23 mcg/dl Total Iron Binding Capacity 213 mcg/dl Transferrin 160 mg/dl Transferrin % Saturation 10 % Ferritin 217.4 ng/ml Test 09/17/17 08:19 09/17/17 11:29 09/17/17 16:26 Bedside Glucose 76 mg/dl 180 mg/dl 134 mg/dl Assessment and Plan 71 y/o female with a history of chronic hyponatremia, recent fall with multiple fractures, a-fib on Coumadin, CAD/HI s/p stent, HTN, HLD, chronic diastolic CHF , COPD, DM II, CKD stage IV, anxiety/depression, and Henson's esophagus who was discharged from the hospital recently, home nursing noticed abnormal labs, infected decubitus ulcers in lower back and lower extremities, and she was found to have UTI. Acute and chronic renal failure stage 3 secondary to decrease oral intake/ dehydration,improving with lasix on hold, nephrology consult Hypovolemic hyponatremia secondary to decrease oral intake, improving Coumadin coagulopathy, hold coumadin given vitamin K monitor serum INR has now reached normal range will restart coumadin 09/17 Atrial fibrillation on Coumadin,CAD/ HI s/p 2 stents, Last ELAINE was on 11/17/2016 , Chronic diastolic congestive heart failure, stable not in exacerbation, holding lasix, continue amiodarone Moderate routine caloric malnutrition, dietary consult and supplements decubitus ulcers on both heals and lateral malleolus with Iscar stage 3 , also 2x2 ulcer on lower back, stage 3. is on ceftriaxone and po doxycycline, off loading pressure with padding DM II--HgbA1c 9.6 on 07/09, Lantus bid, plus ssi COPD currently stable anxiety/depression Henson's esophagus continue on ppi disposition may require snf
[2017-09-17] MEDS: ATORVASTATIN 40 MG TAB PO SCH (21:45)
[2017-09-17] MEDS: GABAPENTIN 300 MG CAP PO SCH (21:46)
[2017-09-17 22:45] VITALS: TEMP 36.7
[2017-09-17 22:46] VITALS: BP 145/65; PULSE 79; TEMP 36.7; O2SAT 94
[2017-09-18 08:19] LABS: CALCIUM 8.7 mg/dl (8.5-10.1); CREATININE 2.56 mg/dl (0.60-1.20); POTASSIUM 4.2 mmol/L (3.5-5.1)
[2017-09-18 08:27] VITALS: BP 138/73; PULSE 71; TEMP 36.7; O2SAT 95
[2017-09-18] MEDS: CLOPIDOGREL BISULFATE 75 MG TAB PO SCH (09:39)
[2017-09-18] MEDS: LACTOBACILLUS ACIDOPHILUS (FLORANEX) TAB PO SCH ×3 (09:39→17:51)
[2017-09-18] MEDS: PANTOprazole SOD 40 MG TAB PO SCH ×2 (09:39→20:51)
[2017-09-18] MEDS: AMIODARONE 200 MG TAB PO SCH ×2 (09:39→20:56)
[2017-09-18] MEDS: DOXYCYCLINE HYCLATE 100 MG CAP PO SCH ×2 (09:40→20:51)
[2017-09-18] MEDS: INSULIN ASPART 100 UNITS/ML 3 ML PEN SC SCH ×4 (09:46→20:58)
[2017-09-18] MEDS: BOOST GLUCOSE CONTROL PO SCH ×3 (09:47→17:00)
--- NOTE | 2017-09-18 11:54 | Nephrology Progress Note ---
Nephrology Progress Note Date of Service Sep 18, 2017. Chief Complaint F/U for DEMETRA and hyponatremia. Dominic Ba was seen and examined in her room this morning. She has been overall feeling well appetite decent. Renal function improved and creatinine now at baseline, 2.6 this morning, serum sodium normalized at 135. Blood pressure has been stable. Voiding normally. Review of Systems A complete review of systems was performed. Pertinent positives are noted above. All other systems are negative. Vital Signs Last 8 Hrs Date Time Temp Pulse Resp B/P (MAP) Pulse Ox O2 Delivery O2 Flow Rate FiO2 09/18/17 08:27 36.7 71 18 138/73 (94) 95 Room Air 09/18/17 08:17 Room Air Last Recorded Weight Weight (Kilograms): 80.000 Physical Exam GENERAL: Elderly female, AAA x 3, pleasant, healthy-appearing, not in any distress. NECK: Supple, no JVD. RESPIRATORY: Normal breathing efforts, no accessory muscle use, clear to auscultation bilaterally, no wheezes or rales. CARDIOVASCULAR: S1, S2 normal, rate rhythm regular. EXTREMITY: Ulcer in bilateral heel, no edema NEURO: speech fluent. PSYCHIATRY: Normal mood and judgment Family History Diabetes mellitus FH: gallbladder disease FH: heart disease FH: lung disease FHx: cancer Hypertension Social History Drug Use: none Marital Status: Occupation: retired Laboratory Results Past 24 Hours 09/18/17 07:39 Test 09/17/17 16:26 09/17/17 20:06 09/18/17 07:39 09/18/17 08:02 Bedside Glucose 134 mg/dl (70-90) 217 mg/dl (70-90) 130 mg/dl (70-90) Prothrombin Time 20.7 SECONDS (9.0-12.0) Prothromb Time International Ratio 2.0 (0.9-1.1) Anion Gap 9.0 mmol/L (3-11) Est Creatinine Clear Calc Drug Dose 21.2 ml/min Estimated GFR () 20.9 Estimated GFR (Non- 18.1 BUN/Creatinine Ratio 14.8 (10-20) Calcium Level 8.7 mg/dl (8.5-10.1) Allergies Coded Allergies: No Known Allergies (Verified , 09/15/17) Medications Current Inpatient Medications Medications (Trade) Dose Ordered Sig/Dajuan Route Start Time Stop Time Status Last Admin Dose Admin Amiodarone HCl (Cordarone Tab) 200 mg BID PO 09/15/17 20:00 10/15/17 20:59 09/18/17 09:39 200 MG Atorvastatin Calcium (Lipitor Tab) 40 mg HS PO 09/15/17 21:00 10/15/17 20:59 09/17/17 21:45 40 MG Clopidogrel Bisulfate (plAVix TAB) 75 mg DAILY PO 09/16/17 08:00 10/16/17 08:59 09/18/17 09:39 75 MG Gabapentin (Neurontin Cap) 300 mg HS PO 09/15/17 21:00 10/15/17 20:59 09/17/17 21:46 300 MG Insulin Glargine (Lantus Solostar Pen) 15 units QAM SC 09/16/17 08:00 10/16/17 08:59 Future Hold 09/17/17 08:47 15 UNITS Tramadol HCl (Ultram Tab) 50 mg Q6 PRN PO 09/15/17 15:00 10/15/17 14:59 09/15/17 23:36 50 MG Doxycycline Hyclate (Vibramycin Cap) 100 mg BID PO 09/15/17 20:00 09/25/17 20:59 09/18/17 09:40 100 MG Pantoprazole Sodium (Protonix Tab) 40 mg BID PO 09/15/17 20:00 10/15/17 20:59 09/18/17 09:39 40 MG Ceftriaxone Sodium 1 gm/ Dextrose 50 ml @ 100 mls/hr Q24H IV 09/16/17 14:00 09/26/17 13:59 09/17/17 12:39 100 MLS/HR Lactobacillus Acidophilus (Floranex Tab) 4 tab TIDM PO 09/16/17 08:00 10/16/17 07:59 09/18/17 09:39 4 TAB Acetaminophen (Tylenol Tab) 650 mg Q4H PRN PO 09/15/17 16:30 10/15/17 16:29 09/16/17 21:02 650 MG Al Hydrox/Mg Hydrox/Simethicone (Maalox Max Susp) 15 ml Q4H PRN PO 09/15/17 16:30 10/15/17 16:29 Magnesium Hydroxide (Milk Of Magnesia Susp) 30 ml Q6H PRN PO 09/15/17 16:30 10/15/17 16:29 Polyethylene (Miralax Powder Packet) 17 gm DAILY PRN PO 09/15/17 16:30 10/15/17 16:29 09/17/17 17:26 17 GM Ondansetron HCl (Zofran Inj) 4 mg Q6H PRN IV 09/15/17 16:30 10/15/17 16:29 09/16/17 08:03 4 MG Zolpidem Tartrate (Ambien Tab) 5 mg HSZ PRN PO 09/15/17 16:30 10/15/17 16:29 Insulin Aspart (novoLOG ASPART) SLIDING SCALE If C... ACHS SC 09/15/17 21:00 10/15/17 20:59 09/18/17 09:46 1 UNITS Glucose (Glucose 40% Gel) 15-30 GRAMS 15 GRAMS... UD PRN PO 09/15/17 16:30 10/15/17 16:29 Glucose (Glucose Chew Tab) 4-8 Tablets 4 Tabl... UD PRN PO 09/15/17 16:30 10/15/17 16:29 Dextrose (Dextrose 50% 50ML Syringe) 25-50ML OF 50% DW IV FOR... UD PRN IV 09/15/17 16:30 10/15/17 16:29 Glucagon (Glucagon Inj) 1 mg UD PRN SQ 09/15/17 16:30 10/15/17 16:29 Promethazine HCl 12.5 mg/Sodium Chloride 50.5 ml @ 204 mls/hr Q6H PRN IV 09/16/17 11:45 10/16/17 11:44 09/16/17 12:00 204 MLS/HR Enteral Nutritional Formula (Boost Glucose Control) 1 can TIDM PO 09/16/17 17:00 10/16/17 16:59 09/18/17 09:47 1 CAN Insulin Glargine (Lantus Solostar Pen) 10 units HS SC 09/17/17 22:00 10/15/17 20:59 09/17/17 21:44 10 UNITS Warfarin Sodium (Coumadin Tab) 2.5 mg DAILY@16 PO 09/18/17 16:00 10/18/17 15:59 Impression Jesenia a 71-year-old female with multiple significant comorbidities including advanced CKD, chronic hyponatremia, ambulatory dysfunction and deconditioning, hypertension, diabetes, AFib on anticoagulation with Coumadin, history of coronary artery disease status post prior PTCA with stent, mechanical fall in July 2017. She was admitted to the hospital with generalized weakness, Coumadin coagulopathy acute kidney injury and hyponatremia. On admission she was also found to urinary tract infection, started on ceftriaxone empirically. Stage 4 chronic kidney disease secondary to diabetic nephropathy, baseline creatinine has been around 2.8. Has prior history of recurrent acute kidney injury. On admission creatinine was 3.7 which slightly improved to 3.5 this morning. Sodium was 126, urine osmolality 244, she was started with IV normal saline with improvement serum sodium to 132 this morning. Blood pressure has been acceptable. Volume status acceptable. Hyponatremia and acute kidney injury resolved creatinine improved to 2.7 which is her baseline, sodium normalized at 135. Otherwise has been clinically stable. Recommendations --continue to monitor renal function and electrolyte with daily renal panel while inpatient, however renal function now at baseline, hyponatremia resolved. --continue on Venofer 200 milligram IV every other day for total 1 gram --dose medications for GFR less than 10 --avoid nephrotoxic medications Will follow.
[2017-09-18] MEDS: CEFTRIAXONE SOD INJ 1 GM in DEXTROSE 5% ADD-VANTAGE 50ML 50 ML IV SCH (13:32)
[2017-09-18] MEDS ORDERED: WARFARIN SOD 2.5 MG TAB PO SCH (16:00)
[2017-09-18 16:03] VITALS: BP 149/79; PULSE 74; TEMP 36.7; O2SAT 96
--- NOTE | 2017-09-18 20:30 | Progress Note ---
Subjective Date of Service: Sep 18, 2017. Subjective Pt evaluation today including: conversation w/ patient, physical exam, chart review, lab review, review of inpatient medication list feelign weak still watiing on approval for rehab no other new complaitns updated dtr as well Problem List Medical Problems: (1) Acute coronary syndrome Status: Acute (2) Acute electrocardiogram changes Status: Acute (3) Ankle pain Status: Acute (4) ARF (acute renal failure) Status: Acute (5) Chronic kidney disease Status: Acute (6) Colitis Status: Acute (7) Dehydration Status: Acute (8) Fall in home Status: Acute (9) Fracture of rib of left side Status: Acute (10) Fracture of right distal radius Status: Acute (11) Fracture of right ulnar styloid Status: Acute (12) Frequent falls Status: Acute (13) Hemothorax Status: Acute (14) NSTEMI (non-ST elevated myocardial infarction) Status: Acute (15) Right wrist fracture Status: Acute (16) Skin ulcer of buttock Status: Acute (17) Supratherapeutic INR Status: Acute (18) UTI (urinary tract infection) Status: Acute Review of Systems all other ROS otherwise negative except for as above Objective Vital Signs Date Time Temp Pulse Resp B/P (MAP) Pulse Ox O2 Delivery O2 Flow Rate FiO2 09/18/17 16:03 36.7 74 18 149/79 (102) 96 Room Air 09/18/17 16:00 Room Air 09/18/17 08:27 36.7 71 18 138/73 (94) 95 Room Air 09/18/17 08:17 Room Air 09/18/17 00:00 Room Air 09/17/17 22:46 36.7 79 16 145/65 (91) 94 Room Air 09/17/17 22:45 36.7 Physical Exam General Appearance: no apparent distress Eyes: EOMI ENT: hearing grossly normal Neck: trachea midline Respiratory/Chest: no respiratory distress, no accessory muscle use Extremities: normal range of motion Neurologic/Psychiatric: 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 II-XII nml as tested, alert Skin: normal color, warm/dry Laboratory Results Last 24 Hours Test 09/18/17 07:39 09/18/17 08:02 09/18/17 11:48 09/18/17 16:49 Prothrombin Time 20.7 SECONDS Prothromb Time International Ratio 2.0 Sodium Level 135 mmol/L Potassium Level 4.2 mmol/L Chloride Level 107 mmol/L Carbon Dioxide Level 19 mmol/L Anion Gap 9.0 mmol/L Blood Urea Nitrogen 38 mg/dl Creatinine 2.56 mg/dl Est Creatinine Clear Calc Drug Dose 21.2 ml/min Estimated GFR () 20.9 Estimated GFR (Non- 18.1 BUN/Creatinine Ratio 14.8 Random Glucose 123 mg/dl Calcium Level 8.7 mg/dl Bedside Glucose 130 mg/dl 167 mg/dl 188 mg/dl Test 09/18/17 19:35 Bedside Glucose 201 mg/dl Assessment and Plan 71 y/o female with a history of chronic hyponatremia, recent fall with multiple fractures, a-fib on Coumadin, CAD/ID s/p stent, HTN, HLD, chronic diastolic CHF , COPD, DM II, CKD stage IV, anxiety/depression, and Henson's esophagus who was discharged from the hospital recently, home nursing noticed abnormal labs, infected decubitus ulcers in lower back and lower extremities, and she was found to have UTI. Acute and chronic renal failure stage 3 secondary to decrease oral intake/ dehydration,improving with lasix on hold, nephrology consult appreciated. continue hydration and follow Hypovolemic hyponatremia secondary to decrease oral intake, improving Coumadin coagulopathy, improved coumadin restarted Atrial fibrillation on Coumadin,CAD/ ID s/p 2 stents, Last ELAINE was on 11/17/2016 , Chronic diastolic congestive heart failure, stable not in exacerbation, holding lasix, continue amiodarone, warfarin Moderate protein caloric malnutrition, dietary consult and supplements decubitus ulcers on both heals and lateral malleolus with Iscar stage 3 , also 2x2 ulcer on lower back, stage 3. is on ceftriaxone and po doxycycline, off loading pressure with padding DM II--HgbA1c 9.6 on 07/09, Lantus bid, plus ssi, sugars reasonable COPD currently stable anxiety/depression Henson's esophagus continue on ppi home w help vs rehab
[2017-09-18] MEDS: GABAPENTIN 300 MG CAP PO SCH (20:51)
[2017-09-18] MEDS: ATORVASTATIN 40 MG TAB PO SCH (20:51)
[2017-09-18 20:54] VITALS: BP 154/85; PULSE 80
[2017-09-18] MEDS: INSULIN GLARGINE SOLOSTAR 100 UNITS/ML 3 ML PEN SC SCH (20:59)
[2017-09-18] MEDS: ACETAMINOPHEN 325 MG TAB PO PRN (20:59)
[2017-09-18] MEDS: ONDANSETRON INJ 2 MG/ML 2 ML VIAL IV PRN (23:42)
[2017-09-18 23:46] VITALS: BP 145/71; PULSE 63; TEMP 36.6; O2SAT 95
[2017-09-19] MEDS: INSULIN ASPART 100 UNITS/ML 3 ML PEN SC SCH ×2 (06:30→12:57)
[2017-09-19 07:45] LABS: INR 1.9 (0.9-1.1)
[2017-09-19] MEDS: CLOPIDOGREL BISULFATE 75 MG TAB PO SCH (07:57)
[2017-09-19] MEDS: PANTOprazole SOD 40 MG TAB PO SCH (07:57)
[2017-09-19] MEDS: BOOST GLUCOSE CONTROL PO SCH ×2 (07:57→12:00)
[2017-09-19] MEDS: LACTOBACILLUS ACIDOPHILUS (FLORANEX) TAB PO SCH ×2 (07:57→12:53)
[2017-09-19] MEDS: DOXYCYCLINE HYCLATE 100 MG CAP PO SCH (07:57)
[2017-09-19] MEDS: AMIODARONE 200 MG TAB PO SCH (07:57)
[2017-09-19 08:06] LABS: CALCIUM 8.8 mg/dl (8.5-10.1); CREATININE 2.27 mg/dl (0.60-1.20); POTASSIUM 4.2 mmol/L (3.5-5.1)
[2017-09-19 09:26] VITALS: BP 136/77; PULSE 60; TEMP 36.8; O2SAT 95
[2017-09-19] MEDS ORDERED: LCTX PO ×2 (13:24)
[2017-09-19] MEDS ORDERED: INSDGIPEN SC ×2 (13:24)
[2017-09-19] MEDS ORDERED: NVLG SC ×2 (13:24)
[2017-09-19] MEDS ORDERED: MRLP17X PO ×2 (13:24)
[2017-09-19] MEDS ORDERED: NUTR-7 PO ×2 (13:24)
[2017-09-19] MEDS ORDERED: CEFD1CAP14 PO ×2 (13:24)
[2017-09-19] MEDS ORDERED: CMD25 PO ×2 (13:24)
--- NOTE | 2017-09-19 13:35 | Discharge Instructions ---
Discharge Instructions Date of Service Sep 19, 2017. Admission Reason for Admission: Hyponatremia Discharge Discharge Diagnosis / Problem: multiple - see below Discharge Goals Goal(s): Diagnostic testing, Therapeutic intervention Activity Recommendations Activity Limitations: resume your previous activity . Instructions / Follow-Up Instructions / Follow-Up weakness -this was due to multiple factors - and while the medical portions of it will be outlined below, absolutely critical is getting in enough nutrition and hydration -nutrition: try to ensure you're getting enough to eat, and to add "margin of error" drink protein shakes at least twice a day, ideally three times a day, for the time being -hydration: in addition to holding off on the lasix (see below) we'd like to have you drink about 60 ounces of fluid a day to ensure you stay well hydrated - - obviously if you start to notice swelling and/or any shortness of breath, then we may need to have you seen right away, but as it stands right now, it appears that recurrent dehydration is going to be a far bigger potential problem than fluid overload low sodium / worse kidney function -this improved nicely with hydration - suggesting strongly that dehydration was at play -as above noted, for now try to get in good nutrition and about 60 ounces of fluid a day -hold off on taking your lasix (furosemide) for the time being. if you were to start to notice weight gain/swelling and shortness of breath, then we'd want you to be seen right away, but for the foreseeable future keeping you well hydrated appears to be a bigger issue than keeping you from being fluid overloaded -have labs (BMP) checked again on Thursday skin ulcers -we'll ask for a referral to the wound clinic that works with Dr Quintero to have them keep on top of the appropriate dressings/topical treatments -the antibiotics (doxycycline and cefdinir) are to clear overlying infections from the ulcers -try to keep from putting pressure on the areas as best you can. even when you' re sitting/laying, shift your weight to keep from having pressure on the same area all the time -good nutrition (including the protein shakes as above noted) will give your body the building blocks to help this heal diabetes -this one is a bit tricky - here in the hospital you've been under far better control with far less insulin than you normally are listed as taking at home. see the reduced insulin regimen above. however, when you get home if you find that you're eating more starches/breads/potatos/sugars etc than you were in the hospital it would be expected for your sugars to rise again. follow this closely and be in frequent contact with dr quintero for ongoing insulin adjustments. the less sugar/starch/bread you eat the easier your sugar is to keep under control have labwork drawn on Thursday (CBC, BMP, PT/INR) to follow up on how things are going follow up with Dr Quintero next week, and then the wound clinic as soon as we can get arranged. -our nurse navigator will be assisting in setting up the follow up appointments - expect a call from her at some point thursday with when these appointments will be. if you haven't heard from us by about 2pm, call [phone] so that we can touch base and check on your status. Current Hospital Diet Patient's current hospital diet: Diabetes Type 2 Diet Discharge Diet Recommended Diet: Diabetes Type 2 Diet Pending Studies Studies pending at discharge: no Laboratory Results Hemoglobin A1c Test 09/16/17 07:30 Range/Units Estimated Average Glucose 180 mg/dl Hemoglobin A1c 7.9 H 4.5-5.6 % Medical Emergencies . Who to Call and When: Medical Emergencies: If at any time you feel your situation is an emergency, please call 911 immediately. . Non-Emergent Contact Non-Emergency issues call your: Primary Care Provider . . "Provider Documentation" section prepared by Chepe Camarillo. . VTE Core Measure Inpt VTE Proph given/why not?: Warfarin (Coumadin), SCD's
[2017-09-19 13:48] VITALS: BP 136/77; PULSE 60; TEMP 36.8; O2SAT 95
[2017-09-19] MEDS: CEFTRIAXONE SOD INJ 1 GM in DEXTROSE 5% ADD-VANTAGE 50ML 50 ML IV SCH (13:52)
--- NOTE | 2017-09-19 14:43 | Nephrology Progress Note ---
Nephrology Progress Note Date of Service Sep 19, 2017. Chief Complaint DEMETRA/CKD Subjective No acute events overnight. No complaints today. Jesenia feels well. No complaints endorsed. Plan for discharge home today. Review of Systems A complete review of systems was performed. Pertinent positives are noted above. All other systems are negative. Vital Signs Last 8 Hrs Date Time Temp Pulse Resp B/P (MAP) Pulse Ox O2 Delivery O2 Flow Rate FiO2 09/19/17 13:48 36.8 60 18 95 Room Air 09/19/17 09:26 36.8 60 18 136/77 (96) 95 Room Air 09/19/17 08:00 Room Air Last Recorded Weight Weight (Kilograms): 80.000 Physical Exam General Appearance: WD/WN, no apparent distress Head: normocephalic, atraumatic Eyes: normal inspection, sclerae normal ENT: normal ENT inspection, pharynx normal Neck: supple, no JVD Respiratory/Chest: lungs clear, no respiratory distress, no accessory muscle use Cardiovascular: regular rate, rhythm, no gallop Back: no CVA tenderness Abdomen/GI: non tender, soft Extremities/Musculoskelatal: normal inspection, no pedal edema Neurologic/Psych: alert, normal mood/affect Family History Diabetes mellitus FH: gallbladder disease FH: heart disease FH: lung disease FHx: cancer Hypertension Social History Drug Use: none Marital Status: Occupation: retired Laboratory Results Past 24 Hours 09/19/17 07:01 Test 09/18/17 16:49 09/18/17 19:35 09/19/17 07:01 09/19/17 08:15 Bedside Glucose 188 mg/dl (70-90) 201 mg/dl (70-90) 104 mg/dl (70-90) Prothrombin Time 19.2 SECONDS (9.0-12.0) Prothromb Time International Ratio 1.9 (0.9-1.1) Anion Gap 8.0 mmol/L (3-11) Est Creatinine Clear Calc Drug Dose 23.9 ml/min Estimated GFR () 24.2 Estimated GFR (Non- 20.9 BUN/Creatinine Ratio 12.5 (10-20) Calcium Level 8.8 mg/dl (8.5-10.1) Allergies Coded Allergies: No Known Allergies (Verified , 09/15/17) Medications Current Inpatient Medications Medications (Trade) Dose Ordered Sig/Dajuan Route Start Time Stop Time Status Last Admin Dose Admin Amiodarone HCl (Cordarone Tab) 200 mg BID PO 09/15/17 20:00 10/15/17 20:59 09/19/17 07:57 200 MG Atorvastatin Calcium (Lipitor Tab) 40 mg HS PO 09/15/17 21:00 10/15/17 20:59 09/18/17 20:51 40 MG Clopidogrel Bisulfate (plAVix TAB) 75 mg DAILY PO 09/16/17 08:00 10/16/17 08:59 09/19/17 07:57 75 MG Gabapentin (Neurontin Cap) 300 mg HS PO 09/15/17 21:00 10/15/17 20:59 09/18/17 20:51 300 MG Insulin Glargine (Lantus Solostar Pen) 15 units QAM SC 09/16/17 08:00 10/16/17 08:59 Future Hold 09/17/17 08:47 15 UNITS Tramadol HCl (Ultram Tab) 50 mg Q6 PRN PO 09/15/17 15:00 10/15/17 14:59 09/15/17 23:36 50 MG Doxycycline Hyclate (Vibramycin Cap) 100 mg BID PO 09/15/17 20:00 09/25/17 20:59 09/19/17 07:57 100 MG Pantoprazole Sodium (Protonix Tab) 40 mg BID PO 09/15/17 20:00 10/15/17 20:59 09/19/17 07:57 40 MG Ceftriaxone Sodium 1 gm/ Dextrose 50 ml @ 100 mls/hr Q24H IV 09/16/17 14:00 09/26/17 13:59 09/18/17 13:32 100 MLS/HR Lactobacillus Acidophilus (Floranex Tab) 4 tab TIDM PO 09/16/17 08:00 10/16/17 07:59 09/19/17 12:53 4 TAB Acetaminophen (Tylenol Tab) 650 mg Q4H PRN PO 09/15/17 16:30 10/15/17 16:29 09/18/17 20:59 650 MG Al Hydrox/Mg Hydrox/Simethicone (Maalox Max Susp) 15 ml Q4H PRN PO 09/15/17 16:30 10/15/17 16:29 Magnesium Hydroxide (Milk Of Magnesia Susp) 30 ml Q6H PRN PO 09/15/17 16:30 10/15/17 16:29 Polyethylene (Miralax Powder Packet) 17 gm DAILY PRN PO 09/15/17 16:30 10/15/17 16:29 09/17/17 17:26 17 GM Ondansetron HCl (Zofran Inj) 4 mg Q6H PRN IV 09/15/17 16:30 10/15/17 16:29 09/18/17 23:42 4 MG Zolpidem Tartrate (Ambien Tab) 5 mg HSZ PRN PO 09/15/17 16:30 10/15/17 16:29 Insulin Aspart (novoLOG ASPART) SLIDING SCALE If C... ACHS SC 09/15/17 21:00 10/15/17 20:59 09/19/17 12:57 3 UNITS Glucose (Glucose 40% Gel) 15-30 GRAMS 15 GRAMS... UD PRN PO 09/15/17 16:30 10/15/17 16:29 Glucose (Glucose Chew Tab) 4-8 Tablets 4 Tabl... UD PRN PO 09/15/17 16:30 10/15/17 16:29 Dextrose (Dextrose 50% 50ML Syringe) 25-50ML OF 50% DW IV FOR... UD PRN IV 09/15/17 16:30 10/15/17 16:29 Glucagon (Glucagon Inj) 1 mg UD PRN SQ 09/15/17 16:30 10/15/17 16:29 Promethazine HCl 12.5 mg/Sodium Chloride 50.5 ml @ 204 mls/hr Q6H PRN IV 09/16/17 11:45 10/16/17 11:44 09/16/17 12:00 204 MLS/HR Enteral Nutritional Formula (Boost Glucose Control) 1 can TIDM PO 09/16/17 17:00 10/16/17 16:59 09/19/17 07:57 1 CAN Insulin Glargine (Lantus Solostar Pen) 10 units HS SC 09/17/17 22:00 10/15/17 20:59 09/18/17 20:59 10 UNITS Warfarin Sodium (Coumadin Tab) 2.5 mg DAILY@16 PO 09/18/17 16:00 10/18/17 15:59 09/18/17 16:05 2.5 MG Impression (1) Chronic kidney disease Jesenia a 71-year-old female with multiple significant comorbidities including advanced CKD, chronic hyponatremia, ambulatory dysfunction and deconditioning, hypertension, diabetes, AFib on anticoagulation with Coumadin, history of coronary artery disease status post prior PTCA with stent, mechanical fall in July 2017. She was admitted to the hospital with generalized weakness, Coumadin coagulopathy acute kidney injury and hyponatremia. On admission she was also found to urinary tract infection, started on ceftriaxone empirically. Stage 4 chronic kidney disease secondary to diabetic nephropathy, baseline creatinine has been around 2.8. Has prior history of recurrent acute kidney injury. On admission creatinine was 3.7 which slightly improved to 3.5 this morning. Sodium was 126, urine osmolality 244, she was started with IV normal saline with improvement serum sodium to 132 this morning. Blood pressure has been acceptable. Volume status acceptable. Hyponatremia and acute kidney injury resolved creatinine improved to 2.7 which is her baseline, sodium normalized at 135. Otherwise has been clinically stable. Recommendations Clinically improved. Appropriate for discharge home today. BP, volume status and metabolic profile are appropriate. Medications appropriate for renal function. Tolerated IV iron infusion. I will coordinate outpatient follow up in the nephrology clinic with Dr. Oliver within the next 1-2 weeks.
--- NOTE | 2017-09-19 19:40 | Discharge Summary ---
Discharge Summary Date of Service Sep 19, 2017. Discharge Summary Admission Date: Sep 15, 2017 at 16:29 Discharge Date: Sep 19, 2017 Discharge Disposition: Home with services Principal Diagnosis: multifactorial weakness Immunizations: Have You Had Influenza Vaccine: Yes Influenza Vaccine Date: May 16, 2006 History of Tetanus Vaccine?: Yes History of Pneumococcal: No History of Hepatitis B Vaccine: No Procedures: Last Resulted CBC 09/17/17 07:53 Last Resulted BMP 09/19/17 07:01 CHEST ONE VIEW PORTABLE HISTORY: EVALUATE ALTERED MENTAL STATUS/WEAKNESS COMPARISON: Chest 08/25/2017. FINDINGS: No pneumothorax. Mildly displaced left lower rib fractures are again noted. Trace left pleural effusion and left basilar densities persist. The right lung is clear. The heart remains mildly enlarged. No evidence for pulmonary edema. IMPRESSION: 1. No pneumothorax. 2. Mildly displaced left lower rib fractures, trace left pleural effusion, and left basilar densities are again noted. This is not significantly change. Electronically signed by: Richard Garcia M.D. 09/15/2017 12:42 PM Dictated Date/Time: 09/15/2017 12:40 PM Consultations: nephrology Medication Reconciliation New Medications: Cefdinir (Omnicef) 300 Mg Cap 300 MG PO DAILY, #10 CAP Insulin Glargine (Lantus Solostar) 100 Unit/Ml Inj 10 UNITS SC QAM, #1 PEN Lactobacillus Acidophilus (Floranex) 1 Tab Tab 4 TAB PO TIDM, #60 TAB Nutritional Supplements (Boost) 1 Liq Liq 1 CAN PO TIDM, #90 BTL Polyethylene (Miralax) 17 Gm Pow 17 GM PO DAILY PRN for Constipation, #1 BTL Warfarin Sod (Coumadin) 2.5 Mg Tab 2.5 MG PO DAILY@16, #30 TAB Changed Medications: Insulin Aspart (Novolog) 100 Units/Ml Inj 3 UNITS SC AC, #1 PEN (Changed from: 10 UNITS; QPM; @ DINNER) @ DINNER Continued Medications: Amiodarone Hcl (Cordarone) 200 Mg Tab 200 MG PO BID Atorvastatin (Lipitor) 40 Mg Tab 40 MG PO HS Clopidogrel (Plavix) 75 Mg Tab 75 MG PO DAILY Doxycycline (Monohydrate) (Doxycycline) 100 Mg Cap 100 MG PO BID Gabapentin (Neurontin) 300 Mg Cap 300 MG PO HS Insulin Glargine (Lantus Solostar) 100 Unit/Ml Inj 20 UNITS SC HS Mometasone Furoate-Formoterol (Dulera 100/5 Mcg) 1 Aer Aer 1 AER INH UD Omeprazole (Prilosec) 20 Mg Capcr 20 MG PO BID BEFORE MEALS Tramadol (Ultram) 50 Mg Tab 50 MG PO Q6 PRN for Pain Discontinued Medications: Furosemide (Lasix) 20 Mg Tab 20 MG PO Q2D Insulin Glargine (Lantus Solostar) 100 Unit/Ml Inj 15 UNITS SC QAM Potassium Ext Rel (Klor-Con) 20 Meq Tabcr 20 MEQ PO DAILY Discharge Exam Physical Exam: General Appearance: no apparent distress Eyes: EOMI ENT: hearing grossly normal Neck: trachea midline Respiratory/Chest: no respiratory distress, no accessory muscle use Extremities: normal inspection Neurologic/Psychiatric: order booker II-XII nml as tested, alert Skin: normal color, warm/dry Hospital Course 71 y/o female with a history of chronic hyponatremia, recent fall with multiple fractures, a-fib on Coumadin, CAD/GA s/p stent, HTN, HLD, chronic diastolic CHF , COPD, DM II, CKD stage IV, anxiety/depression, and Henson's esophagus who was discharged from the hospital recently, home nursing noticed abnormal labs, infected decubitus ulcers in lower back and lower extremities, and she was found to have UTI. Acute and chronic renal failure stage 3 secondary to decrease oral intake/ dehydration,improving with lasix on hold, since no clear hx of CHF -- or at least definitely not at all a brittle CHF patient - discharging with lasix on indefinite hold and close outpt f/u. described early CHF sx to pt in person and in writing -- to seek urgent eval should she develop - but unlikley Hypovolemic hyponatremia secondary to decrease oral intake, improving - outpt BMP thursday Coumadin coagulopathy, improved coumadin restarted - PT/INR thursday Atrial fibrillation on Coumadin,CAD/ GA s/p 2 stents, Last ELAINE was on 11/17/2016 , Chronic diastolic congestive heart failure, stable not in exacerbation, holding lasix, continue amiodarone, warfarin Moderate protein caloric malnutrition - supplements, work on better overall PO intake decubitus ulcers on both heals and lateral malleolus with Iscar stage 3 , also 2x2 ulcer on lower back, stage 3. abx w cefdinir and doxy; outpt PCP and wound clinic follow up, nutrition support DM II--HgbA1c 9.6 on 07/09, but current sugars have required far less insulin - d /w pt in person and in writing how heavily dietary carb/sugar intake can affect glycemic control and insulin needs - for now d/c on much reduced regimen but asked to follow sugars closely and f/u w PCP closely COPD currently stable anxiety/depression Henson's esophagus continue on ppi dispo - home with home health (pt and family opted to do this when informed that insurance company would likely not reach a decision until thursday, and she understandably did not want to risk exposure and worsening deconditioning remaining in the hospital for an additional 2 days) close PCP and wound follow up Total Time Spent: Greater than 30 minutes This includes examination of the patient, discharge planning, medication reconciliation, and communication with other providers. Discharge Instructions Please refer to the electronic Patient Visit Report (Discharge Instructions) for additional information. Additional Copies To Sanchez Barroso M.D.
== END 2017-09-19 14:42 | disposition home health service (06) | DRG 682 ==
LOC: C.EDB 12:06 → C.MS4W 16:29 → ENRESERV 17:14 → CANRESERV 17:14 → ENRESERV 17:34
PROVIDERS: ADMIT Internal Medicine; ATTEND Family Medicine
DX: N17.9 Acute kidney failure, unspecified (principal); L89.153 Pressure ulcer of sacral region, stage 3; L89.613 Pressure ulcer of right heel, stage 3; L89.623 Pressure ulcer of left heel, stage 3; L89.513 Pressure ulcer of right ankle, stage 3; L89.523 Pressure ulcer of left ankle, stage 3; E87.1 Hypo-osmolality and hyponatremia; N39.0 Urinary tract infection, site not specified; D68.32 Hemorrhagic disorder due to extrinsic circulating anticoagulants; E44.0 Moderate protein-calorie malnutrition; I13.0 Hypertensive heart and chronic kidney disease with heart failure and stage 1 through stage 4 chronic kidney disease, or unspecified chronic kidney disease; I50.32 Chronic diastolic (congestive) heart failure; R53.1 Weakness; N18.4 Chronic kidney disease, stage 4 (severe); I25.2 Old myocardial infarction; J44.9 Chronic obstructive pulmonary disease, unspecified; E11.21 Type 2 diabetes mellitus with diabetic nephropathy; E11.22 Type 2 diabetes mellitus with diabetic chronic kidney disease; I48.91 Unspecified atrial fibrillation; Z79.899 Other long term (current) drug therapy; Z79.4 Long term (current) use of insulin; Z91.81 History of falling; Z87.81 Personal history of (healed) traumatic fracture; Z87.891 Personal history of nicotine dependence; Z83.3 Family history of diabetes mellitus; Z82.49 Family history of ischemic heart disease and other diseases of the circulatory system

== ENCOUNTER → 2017-09-29 | Outpatient (CLI) | payer OTHER ==
[~2017-09-29] MED LIST changes: -ACET-1256 PO; +AMIO200T4 PO; +CEFD1CAP14 PO; +CLOP1TAB15 PO; +CMD25 PO; -CRD200 PO; +DOXY-300 PO; -FRRG PO; -HYDR-5688 PO; -INSU1INJ2 SC; +LCTX PO; -LDDP5 TD; -LSX20 PO; -METO50TA16 PO; +MRLP17X PO; -MULT-910 PO; -NTRGSL/4 UT; +NUTR-7 PO; +NVLG SC; -OMEP20CA9 PO; -PLAVIX75 PO; +PRLSR20 PO; -SODI650T8 PO; +TRAM-10 PO; -WARF5TAB7 PO
--- NOTE | 2017-09-29 13:06 | DIAGNOSTIC IMAGING REPORT ---
R HEEL MIN 2 VIEWS CLINICAL HISTORY: R HEEL, NON HEAL PRESSURE ULCER COMPARISON STUDY: None. FINDINGS: No fractures identified within the calcaneus. No cortical destruction or erosions to suggest osteomyelitis. No radiopaque foreign bodies. Focal lucency within the posterior heel soft tissues suggestive of a skin ulceration. This measures 2.1 cm. Small plantar and posterior calcaneal spurs are noted. The bones are osteopenic. IMPRESSION: A 2.1 cm skin ulceration at the posterior heel. No evidence for osteomyelitis. Electronically signed by: Richard Garcia M.D. 09/29/2017 1:04 PM Dictated Date/Time: 09/29/2017 1:03 PM
== END | disposition home or self-care (01) ==
LOC: C.RAD1850 12:34
PROVIDERS: ATTEND Emergency Medicine
DX: L89.610 Pressure ulcer of right heel, unstageable (principal)

== ENCOUNTER → 2017-10-26 | Outpatient (CLI) | payer OTHER ==
[~2017-10-26] MED LIST changes: -CEFD1CAP14 PO; -DOXY-300 PO; -LCTX PO
[2017-10-26 13:17] LABS: HEMATOCRIT 29.7 % (37-47); HEMOGLOBIN 9.3 g/dL (12.0-16.0); MEAN CELL VOLUME 81.4 fL (80-100); MEAN CORPUSCULAR HEMOGLOBIN 25.5 pg (25-34); MEAN CORPUSCULAR HGB CONC 31.3 g/dl (32-36); MEAN PLATELET VOLUME 9.7 fL (7.4-10.4); PLATELET COUNT 500 K/uL (130-400); RED CELL DISTRIBUTION WIDTH CV 20.2 % (11.5-14.5); RED CELL DISTRIBUTION WIDTH SD 60.8 fL (36.4-46.3)
[2017-10-26 14:04] LABS: ALBUMIN 2.6 gm/dl (3.4-5.0); BLOOD UREA NITROGEN 29 mg/dl (7-18); CALCIUM 9.3 mg/dl (8.5-10.1); CARBON DIOXIDE 22 mmol/L (21-32); CREATININE 2.23 mg/dl (0.60-1.20); GLUCOSE 132 mg/dl (70-99); PHOSPHORUS 3.4 mg/dl (2.5-4.9); SODIUM 134 mmol/L (136-145)
== END | disposition home or self-care (01) ==
LOC: C.LAB1850 11:42
PROVIDERS: ATTEND Internal Medicine Nephrology
DX: I13.0 Hypertensive heart and chronic kidney disease with heart failure and stage 1 through stage 4 chronic kidney disease, or unspecified chronic kidney disease (principal); E55.9 Vitamin D deficiency, unspecified; E22.2 Syndrome of inappropriate secretion of antidiuretic hormone; N18.9 Chronic kidney disease, unspecified; I50.9 Heart failure, unspecified

== ENCOUNTER 2017-11-09 12:01 | Inpatient (IN) | payer OTHER ==
[~2017-11-09] VITALS: Ht 167.6 cm; Wt 76.1 kg
[~2017-11-09 12:01] MED LIST changes: +AMOX875T PO; +FRS/40 PO
[2017-11-09] MEDS ORDERED: NVLG SC (12:57)
[2017-11-09] MEDS ORDERED: ACET-1256 PO (12:57)
[2017-11-09] MEDS ORDERED: ALPR0.25 PO (12:57)
[2017-11-09] MEDS ORDERED: WARF2TAB8 PO ×2 (12:57)
[2017-11-09] MEDS ORDERED: FERR325T18 PO (12:57)
[2017-11-09] MEDS ORDERED: METO50TA16 PO (12:57)
[2017-11-09] MEDS ORDERED: BUME1TAB PO (12:57)
[2017-11-09] MEDS ORDERED: INSDGIPEN SC (12:57)
[2017-11-09] MEDS ORDERED: POTA20TA16 PO (12:57)
[2017-11-09] MEDS ORDERED: VNTHFA/IN INH (12:57)
[2017-11-09] MEDS ORDERED: SODI650T8 PO (12:57)
[2017-11-09] MEDS ORDERED: ASPI81TA28 PO (12:57)
[2017-11-09] MEDS ORDERED: NTRGSL/4 UT (12:57)
[2017-11-09] MEDS ORDERED: PRIM50TA29 PO (12:57)
--- NOTE | 2017-11-09 13:09 | EMERGENCY ROOM VISIT NOTE ---
History Report prepared by Brandon: Jonathan Hernandez Under the Supervision of: Dr. Kiya Camacho D.O. First contact with patient: 13:01 Chief Complaint: CHEST PAIN Stated Complaint: CHEST PAIN/RESPIRATORY Nursing Triage Summary: Chest pain and cough. See triage note. History of Present Illness The patient is a 72 year old female with a history of atrial fibrillation who presents to the Emergency Room via EMS with complaints of persistent sharp central chest pain that started around 3 and a half hours ago. She states that she was just sitting on her chair when the pain came on. The patient notes that she had already ate breakfast and got up before this happened, and she felt fine before the pain came on. She says that she is short of breath with the pain , and she had pain like this when she had a heart attack in July and had 1 stent placed. The patient states that she had felt fine since the stent was placed. She notes that the pain does not change with position or movement, and she denies any back pain or radiation of pain. The patient adds that her son gave her 2 Nitro pills which did not help. She denies any sweating, nausea, urinary symptoms, changes in her bowel movement, leg swelling, or abdominal pain. She says that she takes an Aspirin daily, and took one this morning in addition to an extra one in the ambulance. She adds that she had a cold a couple weeks ago but has mostly gotten over that. Source of History: patient Onset: 3 and a half hours ago Position: chest Symptom Intensity: Nitro did not help Quality: sharp Timing: other (persistent) Associated Symptoms: + SOB, No diaphoresis, No nausea, No abdominal pain, No back pain (or radiation of chest pain), No diarrhea (or changes in bowel movements), No urinary symptoms Note: Has mostly gotten over her cold symptoms from a couple weeks ago. Review of Systems See HPI for pertinent positives & negatives. A total of 10 systems reviewed and were otherwise negative. Past Medical & Surgical Medical Problems: (1) 3 ribs fx from fell, 2 recent fells in 2 days, shoulder pain (2) AMI (acute myocardial infarction) (3) Anemia (4) Chronic kidney disease (5) Chronic kidney disease, stage 4 (severe) (6) COPD (chronic obstructive pulmonary disease) (7) Diabetes (8) Hypertension (9) Hyponatremia (10) Narcotic-induced nausea and vomiting (11) PNA (pneumonia) Family History Diabetes mellitus FH: gallbladder disease FH: heart disease FH: lung disease FHx: cancer Hypertension Social History Smoking Status: Former Smoker Alcohol Use: none Drug Use: none Marital Status: Housing Status: lives with significant other Occupation Status: retired Current/Historical Medications Scheduled Amiodarone Hcl (Cordarone), 200 MG PO DAILY Aspirin (Aspirin Ec), 81 MG PO DAILY Atorvastatin (Lipitor), 40 MG PO HS Bumetanide (Bumex), 1 MG PO BID Clopidogrel (Plavix), 75 MG PO DAILY Ferrous Gluconate (Ferrous Gluconate), 324 MG PO QAM Gabapentin (Neurontin), 300 MG PO HS Insulin Aspart (Novolog), 10 UNITS SC DAILY Insulin Glargine (Lantus Solostar), 10 UNITS SC AMPM Metoprolol Tartrate (Lopressor) (Lopressor), 50 MG PO BID Mometasone Furoate-Formoterol (Dulera 100/5 Mcg), 2 PUFF INH BID Nitroglycerin (Nitrostat), 0.4 MG UT PRN Omeprazole (Prilosec), 20 MG PO BID Potassium Ext Rel (Klor-Con), 20 MEQ PO DAILY Primidone (Mysoline), 50-100 MG PO DIRECTED Sodium Bicarbonate (Sodium Bicarbonate), 650 MG PO BID Warfarin Sod (Jantoven), 4 MG PO 2XWK Warfarin Sod (Jantoven), 2 MG PO 5XWK Scheduled PRN Acetaminophen (Tylenol), 500 MG PO DAILY PRN for Pain Albuterol Hfa (Ventolin Hfa), 2 PUFFS INH QID PRN for Shortness of Breath Alprazolam (Xanax), 0.25 MG PO BID PRN for Anxiety Allergies Coded Allergies: No Known Allergies (Verified , 09/15/17) Physical Exam Vital Signs Date Time Temp Pulse Resp B/P (MAP) Pulse Ox O2 Delivery O2 Flow Rate FiO2 11/09/17 15:00 78 143/63 92 Room Air 11/09/17 14:22 78 14 148/57 97 Room Air 11/09/17 13:34 82 20 136/61 95 Room Air 11/09/17 12:31 88 20 160/54 96 11/09/17 12:28 84 11/09/17 12:22 100 Room Air 11/09/17 12:21 100 Room Air 11/09/17 12:05 36.4 74 16 135/95 100 Room Air Physical Exam GENERAL: alert, well appearing, well nourished, no distress, non-toxic EYE EXAM: normal conjunctiva, PERRL and EOM's grossly intact OROPHARYNX: no exudate, no erythema, lips, buccal mucosa, and tongue normal and mucous membranes are moist NECK: supple, no nuchal rigidity, no adenopathy, non-tender LUNGS: Clear to auscultation. Normal chest wall mechanics HEART: Some reproducible chest wall pain, no murmurs, S1 normal and S2 normal ABDOMEN: abdomen soft, non-tender, normo-active bowel sounds, no masses, no rebound or guarding. BACK: Back is symmetrical on inspection and there is no deformity, no midline tenderness, no CVA tenderness. SKIN: no rashes and no bruising UPPER EXTREMITIES: upper extremities are grossly normal. LOWER EXTREMITIES: No pitting edema. NEURO EXAM: Normal sensorium, cranial nerves II-XII grossly intact, normal speech, no gross weakness of arms, no gross weakness of legs. Medical Decision & Procedures ER Provider Diagnostic Interpretation: CT results have been interpreted by the radiologist and reviewed by me. CHEST ONE VIEW PORTABLE HISTORY: Atypical chest pain and cough COMPARISON: Chest 09/15/2017. FINDINGS: There are low lung volumes. Trace bilateral pleural effusions and bibasilar densities have progressed. The heart remains borderline enlarged. No pneumothorax. The upper lung zones are clear. Mild interstitial thickening persists. IMPRESSION: Interval development of trace bilateral pleural effusions and bibasilar densities. This could represent a pneumonia. Recommend one month chest x-ray follow-up to ensure resolution. Electronically signed by: Richard Garcia M.D. 11/09/2017 1:37 PM Dictated Date/Time: 11/09/2017 1:36 PM Laboratory Results Test 11/09/17 13:23 11/09/17 13:38 Total Bilirubin 0.3 mg/dl (0.2-1) Aspartate Amino Transf (AST/SGOT) 67 U/L (15-37) Alanine Aminotransferase (ALT/SGPT) 74 U/L (12-78) Alkaline Phosphatase 191 U/L (45-117) Total Creatine Kinase 35 U/L (26-192) Total Protein 7.6 gm/dl (6.4-8.2) Albumin 3.0 gm/dl (3.4-5.0) Globulin 4.6 gm/dl (2.5-4.0) Albumin/Globulin Ratio 0.7 (0.9-2) Bedside Troponin I < 0.030 ng/ml (0-0.045) Laboratory results per my review. Medications Administered Medications (Trade) Dose Ordered Sig/Dajuan Route Start Time Stop Time Status Last Admin Dose Admin Fentanyl Citrate (Fentanyl Inj) 50 mcg NOW STAT IV 11/09/17 13:10 11/09/17 13:12 DC 11/09/17 14:18 50 MCG Nitroglycerin (Nitroglycerin 2% Oint) 1 inch NOW ONCE EXT 11/09/17 13:15 11/09/17 13:16 DC 11/09/17 14:18 1 INCH Vancomycin HCl (Vancomycin 1gm Ed/Asu Omnicell) 1 gm NOW STAT IV 11/09/17 13:45 11/09/17 13:47 DC 11/09/17 14:54 1 GM Azithromycin (Zithromax Tab) 500 mg NOW ONCE PO 11/09/17 13:45 11/09/17 13:47 DC 11/09/17 14:18 500 MG Cefepime HCl 2000 mg/Dextrose 112.5 ml @ 200 mls/hr NOW STAT IV 11/09/17 13:45 11/09/17 14:20 DC 11/09/17 14:54 200 MLS/HR Acetaminophen (Tylenol Tab) 650 mg Q4H PRN PO 11/09/17 15:15 12/09/17 15:14 11/10/17 21:30 650 MG ECG Per My Interpretation Indication: chest pain Rate (beats per minute): 77 Rhythm: atrial fibrillation Findings: no acute ischemic change, other (normal axis, normal QRS and QTC) ED Course 1303: The patient was evaluated in room B12A. A complete history and physical exam was performed. 1310: Fentanyl Inj 50 mcg IV. 1315: Nitroglycerin 2% Oint 1 inch EXT. 1345: Cefepime HCl 2000 mg/Dextrose 112.5 ml @ 200 mls/hr IV, Zithromax Tab 500 mg PO, Vancomycin 1 gm Ed/Asu Omnicell 1 gm IV. 1402: Upon reevaluation, the patient is still having pain. I discussed the findings and the treatment plan with the patient. She expresses agreement and understanding. She will be evaluated for further management. 1425: I reviewed the patient's case with Dr. Lisandro FAIRBANKS scan coordinator. She will evaluate the patient for further management. Medical Decision Differential diagnoses includes but is not limited to acute coronary syndrome, myocardial infarction, pericarditis, pulmonary embolus, aortic dissection, pneumonia, pneumothorax, musculoskeletal, shingles, esophageal. Patient's initial presentation description of symptoms most concerning for ACS given her prior history. Patient found to be in her usual A. fib, without rapid ventricular response. Patient had no relief with nitro, mild improvement following administration of IV fentanyl. Patient's blood pressure stable throughout, first set of cardiac enzymes negative. Chest x-ray suggested possible bilateral pneumonia, given patient's recent reported bronchitis, as well as leukocytosis here, patient covered with antibiotics. Patient was recently hospitalized within 60 days and so covered for possible healthcare acquired pneumonia. Blood cultures drawn. No evidence of bacteremia/sepsis. Do not suspect acute vascular etiology, or PE. Patient with anemia that appears stable compared to prior. Patient also with chronic kidney disease that appears consistent with prior levels today also. Patient also was possible urinary tract infection, initial specimen was a clean-catch and did have greater than 30 epithelial cells. Will attempt to obtain a cath specimen. Patient recovered with antibiotics given possible pneumonia findings. Medication Reconcilliation Current Medication List: was personally reviewed by me Blood Pressure Screening Patient's blood pressure: Elevated blood pressure Blood pressure disposition: Elevated BP felt to be situational Consults Time Called: 1420 Consulting Physician: Dr. Lisandro FAIRBANKS scan coordinator Returned Call: 1427 I reviewed the patient's case with Dr. Lisandro FAIRBANKS scan coordinator. She will evaluate the patient for further management. Impression Primary Impression: Chest pain, atypical Additional Impressions: PNA (pneumonia) UTI (urinary tract infection) Chronic kidney disease Anemia Scribe Attestation The scribe's documentation has been prepared under my direction and personally reviewed by me in its entirety. I confirm that the note above accurately reflects all work, treatment, procedures, and medical decision making performed by me. Departure Information Dispostion Being Evaluated By Hospitalist Referrals Sanchez Barroso M.D. (PCP) Patient Instructions My [facility] Problem Qualifiers Additional Impressions: PNA (pneumonia) Pneumonia type: due to unspecified organism Laterality: bilateral Lung location: lower lobe of lung Qualified Codes: J18.1 - Lobar pneumonia, unspecified organism UTI (urinary tract infection) Urinary tract infection type: acute cystitis Hematuria presence: with hematuria Qualified Codes: N30.01 - Acute cystitis with hematuria Chronic kidney disease Chronic kidney disease stage: unspecified stage Qualified Codes: N18.9 - Chronic kidney disease, unspecified Anemia Anemia type: unspecified type Qualified Codes: D64.9 - Anemia, unspecified
[2017-11-09] MEDS ORDERED: FENTANYL CITRATE INJ 50 MCG/1 ML 2 ML VIAL IV STA ×2 (13:10→14:09)
[2017-11-09] MEDS ORDERED: NITROGLYCERIN 2% OINTMENT 30GM TUBE EXT ONE (13:15)
[2017-11-09 13:31] LABS: HEMATOCRIT 29.1 % (37-47); HEMOGLOBIN 9.3 g/dL (12.0-16.0); MEAN CELL VOLUME 81.1 fL (80-100); MEAN CORPUSCULAR HEMOGLOBIN 25.9 pg (25-34); MEAN PLATELET VOLUME 9.3 fL (7.4-10.4); PLATELET COUNT 432 K/uL (130-400); RED CELL DISTRIBUTION WIDTH CV 19.8 % (11.5-14.5); WHITE BLOOD COUNT 13.47 K/uL (4.8-10.8)
--- NOTE | 2017-11-09 13:38 | DIAGNOSTIC IMAGING REPORT ---
CHEST ONE VIEW PORTABLE HISTORY: Atypical chest pain and cough COMPARISON: Chest 09/15/2017. FINDINGS: There are low lung volumes. Trace bilateral pleural effusions and bibasilar densities have progressed. The heart remains borderline enlarged. No pneumothorax. The upper lung zones are clear. Mild interstitial thickening persists. IMPRESSION: Interval development of trace bilateral pleural effusions and bibasilar densities. This could represent a pneumonia. Recommend one month chest x-ray follow-up to ensure resolution. Electronically signed by: Richard Garcia M.D. 11/09/2017 1:37 PM Dictated Date/Time: 11/09/2017 1:36 PM
[2017-11-09 13:40] LABS: PTT PATIENT 25.4 SECONDS (21.0-31.0)
[2017-11-09] MEDS ORDERED: CEFEPIME IV 2,000 MG in DEXTROSE 5% 100ML 100 ML IV STA (13:45)
[2017-11-09] MEDS ORDERED: AZITHROMYCIN 250 MG TAB PO ONE (13:45)
[2017-11-09] MEDS ORDERED: VANCOMYCIN 1GM ED/ASU OMNICELL IV STA (13:45)
[2017-11-09 13:50] LABS: CALCIUM 9.1 mg/dl (8.5-10.1); CREATININE 2.65 mg/dl (0.60-1.20); POTASSIUM 3.6 mmol/L (3.5-5.1)
[2017-11-09 13:54] LABS: CKMB 1.5 ng/ml (0.5-3.6); TOTAL PROTEIN 7.6 gm/dl (6.4-8.2)
[2017-11-09] MEDS ORDERED: NITROGLYCERIN 0.4 MG SL PER TAB CHARGE SL PRN (15:15)
[2017-11-09] MEDS ORDERED: ALBUT/IPRATROP 3MG/0.5MG NEB 3 ML VIAL INH PRN (15:15)
[2017-11-09] MEDS ORDERED: ONDANSETRON INJ 2 MG/ML 2 ML VIAL IV PRN (15:15)
[2017-11-09] MEDS ORDERED: ALUMINUM/MAGNESIUM/SIMETH (MAALOX MAX) 30 ML UDC PO PRN (15:15)
[2017-11-09] MEDS ORDERED: VANCOMYCIN CONSULT ACTIVE PRN (15:15)
[2017-11-09] MEDS ORDERED: ALPRAZOLAM 0.25 MG TAB PO PRN (15:15)
[2017-11-09] MEDS ORDERED: MAGNESIUM HYDROXIDE SUSP 30 ML UDC PO PRN (15:15)
[2017-11-09] MEDS ORDERED: ZOLPIDEM TARTRATE 5 MG TAB PO PRN (15:15)
[2017-11-09] MEDS ORDERED: ALBUTEROL HFA 8 GM INHALER INH PRN (15:15)
[2017-11-09] MEDS ORDERED: PIPERACILL/TAZOBAC CONSULT ACTIVE PRN (15:15)
[2017-11-09] MEDS ORDERED: POLYETHYLENE (MIRALAX) 17 GM PACK PO PRN (15:15)
--- NOTE | 2017-11-09 15:32 | History and Physical ---
History & Physical Date & Time of Service: Nov 09, 2017 at 15:16 Chief Complaint: Chest Pain/Respiratory Primary Care Physician: Sanchez Barroso M.D. History of Present Illness Source: patient, family, clinic records, hospital records Patient is a pleasant 72 y/o female, with PMHx of chronic a.fib on Coumadin, CAD s/p cardiac stenting, HTN, HLD, chronic diastolic CHF, COPD, T2DM, CKD stage IV, anemia of chronic disease, anxiety, depression, and GERD, who presented to the ED because of chest pain that occurred around 0900 today. Patient was sitting there when the pain came on suddenly. Centralized chest pain radiating across entire chest. She denies any other radiation sites. She admits pain is worsened w/ touch, movement, cough. She took two nitro at home w/ out relief. She was given nitro patch and Fentanyl. Pain is still mildly present , but again worsens significantly with movement. She has had a cough for roughly 1.5 weeks now. She has started to develop green sputum production. About 1 month ago, Lasix was changed to Bumex by Dr. Oliver and BLE edema has significantly improved. Patient denies any fever, chills, sweats, lightheadedness, dizziness, vision changes, palpitations, SOB, wheezing, abdominal pain, nausea, vomiting, diarrhea, urinary symptoms, melena, numbness/ tingling, weakness, muscle/joint pain, anxiety/depression, active bleeding, or new skin discoloration/changes. Past Medical/Surgical History Medical Problems: chronic a.fib on Coumadin CAD s/p cardiac stenting HTN HLD chronic diastolic CHF COPD T2DM CKD stage IV anemia of chronic disease anxiety depression GERD Family History Diabetes mellitus FH: gallbladder disease FH: heart disease FH: lung disease FHx: cancer Hypertension Social History Smoking Status: Former Smoker Drug Use: none Marital Status: Occupational Status: retired Immunizations History of Influenza Vaccine: Yes Influenza Vaccine Date: May 16, 2006 History of Tetanus Vaccine?: Yes History of Pneumococcal: No History of Hepatitis B Vaccine: No Allergies Coded Allergies: No Known Allergies (Verified , 09/15/17) Home Medications Scheduled Amiodarone Hcl (Cordarone), 200 MG PO DAILY Aspirin (Aspirin Ec), 81 MG PO DAILY Atorvastatin (Lipitor), 40 MG PO HS Bumetanide (Bumex), 1 MG PO BID Clopidogrel (Plavix), 75 MG PO DAILY Ferrous Gluconate (Ferrous Gluconate), 324 MG PO QAM Gabapentin (Neurontin), 300 MG PO HS Insulin Aspart (Novolog), 10 UNITS SC DAILY Insulin Glargine (Lantus Solostar), 10 UNITS SC AMPM Metoprolol Tartrate (Lopressor) (Lopressor), 50 MG PO BID Mometasone Furoate-Formoterol (Dulera 100/5 Mcg), 2 PUFF INH BID Nitroglycerin (Nitrostat), 0.4 MG UT PRN Omeprazole (Prilosec), 20 MG PO BID Potassium Ext Rel (Klor-Con), 20 MEQ PO DAILY Primidone (Mysoline), 50-100 MG PO DIRECTED Sodium Bicarbonate (Sodium Bicarbonate), 650 MG PO BID Warfarin Sod (Jantoven), 4 MG PO 2XWK Warfarin Sod (Jantoven), 2 MG PO 5XWK Scheduled PRN Acetaminophen (Tylenol), 500 MG PO DAILY PRN for Pain Albuterol Hfa (Ventolin Hfa), 2 PUFFS INH QID PRN for Shortness of Breath Alprazolam (Xanax), 0.25 MG PO BID PRN for Anxiety Physical Exam Vital Signs Date Time Temp Pulse Resp B/P (MAP) Pulse Ox O2 Delivery O2 Flow Rate FiO2 11/09/17 15:00 78 143/63 92 Room Air 11/09/17 14:22 78 14 148/57 97 Room Air 11/09/17 13:34 82 20 136/61 95 Room Air 11/09/17 12:31 88 20 160/54 96 11/09/17 12:28 84 11/09/17 12:22 100 Room Air 11/09/17 12:21 100 Room Air 11/09/17 12:05 36.4 74 16 135/95 100 Room Air General Appearance: no apparent distress Head: normocephalic, atraumatic Eyes: PERRL ENT: hearing grossly normal Neck: supple Respiratory/Chest: lungs clear, no respiratory distress, no accessory muscle use, + pertinent finding (ttp of central chest region ) Cardiovascular: + irregularly irregular (rate controlled) Abdomen/GI: normal bowel sounds, non tender, soft Back: normal inspection Extremities/Musculoskelatal: no calf tenderness, + swelling (+1 pitting edema of bilateral lower extremities ) Neurologic/Psych: alert, normal mood/affect, oriented x 3 Skin: warm/dry, no rash, + pallor Diagnostics Laboratory Results Results Past 24 Hours Test 11/09/17 13:23 11/09/17 13:38 Range/Units White Blood Count 13.47 4.8-10.8 K/uL Red Blood Count 3.59 4.2-5.4 M/uL Hemoglobin 9.3 12.0-16.0 g/dL Hematocrit 29.1 37-47 % Mean Corpuscular Volume 81.1 80-100 fL Mean Corpuscular Hemoglobin 25.9 25-34 pg Mean Corpuscular Hemoglobin Concent 32.0 32-36 g/dl RDW Standard Deviation 59.0 36.4-46.3 fL RDW Coefficient of Variation 19.8 11.5-14.5 % Platelet Count 432 130-400 K/uL Mean Platelet Volume 9.3 7.4-10.4 fL Prothrombin Time 10.7 9.0-12.0 SECONDS Prothromb Time International Ratio 1.0 0.9-1.1 Activated Partial Thromboplast Time 25.4 21.0-31.0 SECONDS Partial Thromboplastin Ratio 1.0 Sodium Level 131 136-145 mmol/L Potassium Level 3.6 3.5-5.1 mmol/L Chloride Level 95 98-107 mmol/L Carbon Dioxide Level 24 21-32 mmol/L Anion Gap 12.0 3-11 mmol/L Blood Urea Nitrogen 42 7-18 mg/dl Creatinine 2.65 0.60-1.20 mg/dl Est Creatinine Clear Calc Drug Dose 19.8 ml/min Estimated GFR () 19.9 Estimated GFR (Non- 17.2 BUN/Creatinine Ratio 15.8 10-20 Random Glucose 151 70-99 mg/dl Calcium Level 9.1 8.5-10.1 mg/dl Total Bilirubin 0.3 0.2-1 mg/dl Aspartate Amino Transf (AST/SGOT) 67 15-37 U/L Alanine Aminotransferase (ALT/SGPT) 74 12-78 U/L Alkaline Phosphatase 191 45-117 U/L Total Creatine Kinase 35 26-192 U/L Creatine Kinase MB 1.5 0.5-3.6 ng/ml Creatine Kinase MB Ratio 4.3 0-3.0 Total Protein 7.6 6.4-8.2 gm/dl Albumin 3.0 3.4-5.0 gm/dl Globulin 4.6 2.5-4.0 gm/dl Albumin/Globulin Ratio 0.7 0.9-2 Bedside Troponin I < 0.030 0-0.045 ng/ml Microbiology Results 11/09/17 Blood Culture, Received Pending 11/09/17 Blood Culture, Received Pending Diagnostic Radiology CHEST ONE VIEW PORTABLE HISTORY: Atypical chest pain and cough COMPARISON: Chest 09/15/2017. FINDINGS: There are low lung volumes. Trace bilateral pleural effusions and bibasilar densities have progressed. The heart remains borderline enlarged. No pneumothorax. The upper lung zones are clear. Mild interstitial thickening persists. IMPRESSION: Interval development of trace bilateral pleural effusions and bibasilar densities. This could represent a pneumonia. Recommend one month chest x-ray follow-up to ensure resolution. Electronically signed by: Richard Garcia M.D. 11/09/2017 1:37 PM Dictated Date/Time: 11/09/2017 1:36 PM The status of this report is Signed. Draft = Not yet reviewed or approved by Radiologist. Signed = Reviewed and approved by Radiologist. EKG LINNETTE STEPHEN ID:[id number] 09-NOV-2017 12:29:45 [facility] Atrial fibrillation Possible Inferior infarct , age undetermined Cannot rule out Anterior infarct , age undetermined Abnormal ECG When compared with ECG of 15-SEP-2017 12:53, No significant change was found 25mm/s 10mm/mV 150Hz 8.0 SP2 12SL 241 DEEPAK: 0 Referred by: ED Unconfirmed Vent. 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 Chest pain- ACS r/o vs HCAP vs musculoskeletal: - Admit to tele for cardiac monitoring - Trend cardiac enzymes- initial negative - EKG w/out acute changes; follow QAM and PRN for chest pain - IV Zosyn + Vancomycin - BCx, UA, sputum culture, MRSA swab pending - Continue home inhalers, DuoNebs PRN - Mild leukocytosis- follow CBC Chronic a.fib on Coumadin, CAD s/p cardiac stenting, HTN, HLD, chronic diastolic CHF- STABLE- follows w/ Dr. 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 Oliver: - Follow PRP - Continue Iron supplement, Bicarbonate Anxiety, depression: Continue Xanax Bilateral heel wounds, R arm wound, buttock wound: Follow w/ wound care- consulted GERD: Protonix- resume Prilosec at discharge DVT prophylaxis: Coumadin Code status: LEVEL V, DNR Dispo: From home, lives w/ and son- PT/OT and CM consulted Resuscitation Status LEVEL V, DNR VTE Prophylaxis Will order VTE Prophylaxis: Yes
[2017-11-09] MEDS ORDERED: IV FLUIDS COMPLETED PRN (16:00)
--- NOTE | 2017-11-09 16:09 | Pharmacy Progress Note ---
Pharmacy Abx Dose Short Note Date of Service Nov 09, 2017. Assessment & Plan Assessment * Ms Chappell is a 72 year old female initiated on Vanc/Zosyn for treatment of HCAP * Significant PMH includes recent hospitalization, COPD, CKD stage 4, DM Plan Vancomycin: * Vancomycin 1gm IV x1 dose in ED, then 500mg on admission (for total of ~20mg/ kg load) * Further dosing guided by random vanc levels, in the setting of significant renal dysfunction * Goal trough level for pulmonary infx: 15 to 20 mcg/mL * Random level ordered for: tomorrow w/ am labs Zosyn: * Pt rec'd 1 dose of Cefepime 2gm IV in the ED * Zosyn started at 3.375gm IV q12h ~7hr after cefepime dose, as recommended for CrCl 20mL/min or less Pharmacy will continue to follow and will adjust dose/frequency as necessary. Thank you.
[2017-11-09] MEDS ORDERED: GLUCOSE 10 TABS/TUBE PO PRN (16:15)
[2017-11-09] MEDS ORDERED: DEXTROSE 50% 50 ML SYR IV PRN (16:15)
[2017-11-09] MEDS ORDERED: GLUCOSE 40% GEL 15 GM TUBE PO PRN (16:15)
[2017-11-09] MEDS ORDERED: GLUCAGON FOR INJ 1 MG VIAL SQ PRN (16:15)
[2017-11-09 16:19] VITALS: Ht 167.6 cm; Wt 76.1 kg
[2017-11-09 17:45] VITALS: BP 125/72; PULSE 104; TEMP 36.9; O2SAT 94
[2017-11-09] MEDS: INSULIN ASPART 100 UNITS/ML 3 ML PEN SC SCH ×2 (17:45→20:15)
[2017-11-09] MEDS ORDERED: VANCOMYCIN IV 500 MG in SODIUM CHLORIDE 0.9% 100ML 100 ML IV ONE (18:30)
[2017-11-09] MEDS ORDERED: WARFARIN SOD 2 MG TAB PO SCH (18:30)
[2017-11-09] MEDS ORDERED: WARFARIN SOD 2 MG TAB PO ONE (18:30)
[2017-11-09 19:30] VITALS: BP 137/78; PULSE 111; TEMP 37.5; O2SAT 97
[2017-11-09] MEDS: SODIUM BICARBONATE 650 MG TAB PO SCH (20:14)
[2017-11-09] MEDS: GABAPENTIN 300 MG CAP PO SCH (20:14)
[2017-11-09] MEDS: BUMETANIDE 1 MG TAB PO SCH (20:16)
[2017-11-09] MEDS: METOPROLOL TARTRATE 50 MG TAB PO SCH (20:16)
[2017-11-09] MEDS: ATORVASTATIN 40 MG TAB PO SCH (20:16)
[2017-11-09] MEDS: INSULIN GLARGINE SOLOSTAR 100 UNITS/ML 3 ML PEN SC SCH (20:19)
[2017-11-09 20:21] VITALS: BP 128/64; PULSE 111; TEMP 36.6
[2017-11-09] MEDS: PIPERACILL/TAZOBAC IV 3.375 GM in DEXTROSE 5% 100ML 100 ML IV SCH (22:13)
[2017-11-09] MEDS: ACETAMINOPHEN 325 MG TAB PO PRN (22:18)
[2017-11-09 22:41] VITALS: BP 93/58; PULSE 82; TEMP 36.9; O2SAT 97
[2017-11-09 22:52] LABS: CKMB 0.7 ng/ml (0.5-3.6)
[2017-11-10] VITALS (8 sets, daily range): BP systolic 81–126; BP diastolic 38–72; PULSE 67–80; TEMP 36.3–36.9; O2SAT 93–98
[2017-11-10 05:54] LABS: HEMATOCRIT 27.7 % (37-47); HEMOGLOBIN 8.9 g/dL (12.0-16.0); MEAN CELL VOLUME 81.5 fL (80-100); MEAN CORPUSCULAR HEMOGLOBIN 26.2 pg (25-34); MEAN CORPUSCULAR HGB CONC 32.1 g/dl (32-36); MEAN PLATELET VOLUME 8.9 fL (7.4-10.4); PLATELET COUNT 355 K/uL (130-400); RED CELL DISTRIBUTION WIDTH CV 19.7 % (11.5-14.5); RED CELL DISTRIBUTION WIDTH SD 58.8 fL (36.4-46.3); WHITE BLOOD COUNT 18.83 K/uL (4.8-10.8)
[2017-11-10 06:05] LABS: INR 1.1 (0.9-1.1)
[2017-11-10 06:27] LABS: BLOOD UREA NITROGEN 48 mg/dl (7-18); CALCIUM 9.3 mg/dl (8.5-10.1); CARBON DIOXIDE 26 mmol/L (21-32); CREATININE 2.88 mg/dl (0.60-1.20); GLUCOSE 149 mg/dl (70-99); SODIUM 130 mmol/L (136-145)
[2017-11-10 06:32] LABS: CKMB 1.4 ng/ml (0.5-3.6)
[2017-11-10] MEDS: CLOPIDOGREL BISULFATE 75 MG TAB PO SCH (07:53)
[2017-11-10] MEDS: FERROUS GLUCONATE 324 MG TAB PO SCH (07:53)
[2017-11-10] MEDS: ASPIRIN 81 MG ECTAB PO SCH (07:53)
[2017-11-10] MEDS: PANTOprazole SOD 40 MG TAB PO SCH (07:54)
[2017-11-10] MEDS: AMIODARONE 200 MG TAB PO SCH (07:54)
[2017-11-10] MEDS: BUMETANIDE 1 MG TAB PO SCH (07:54)
[2017-11-10] MEDS: SODIUM BICARBONATE 650 MG TAB PO SCH ×2 (07:54→20:38)
[2017-11-10] MEDS: METOPROLOL TARTRATE 50 MG TAB PO SCH ×2 (07:54→20:38)
[2017-11-10] MEDS: PRIMIDONE 50 MG TAB PO SCH (07:54)
[2017-11-10] MEDS: INSULIN GLARGINE SOLOSTAR 100 UNITS/ML 3 ML PEN SC SCH ×2 (07:58→21:18)
[2017-11-10] MEDS: INSULIN ASPART 100 UNITS/ML 3 ML PEN SC SCH ×4 (07:58→21:17)
[2017-11-10] MEDS ORDERED: POTASSIUM CHLORIDE 20 MEQ TABCR PO SCH (09:00)
[2017-11-10] MEDS ORDERED: ACETAMINOPHEN SOLN 650MG/20.3 ML UDC ONE (10:23)
[2017-11-10] MEDS: ACETAMINOPHEN 325 MG TAB PO PRN ×2 (10:30→21:30)
[2017-11-10] MEDS: PIPERACILL/TAZOBAC IV 3.375 GM in DEXTROSE 5% 100ML 100 ML IV SCH ×2 (10:30→23:06)
--- NOTE | 2017-11-10 10:53 | Hospitalist Progress Note ---
Hospitalist Progress Note Date of Service Nov 10, 2017. (Leilani Hatch PA-C) Subjective Pt evaluation today including: conversation w/ patient, physical exam, chart review, lab review, review of studies, review of inpatient medication list Pain: Headache PO Intake: Adequate Voiding: no voiding problems Patient seen and evaluated. No acute events overnight. Initially stated CP was resolved but had a recurrence around 1040 this AM. EKG unremarkable. Telemetry with rate controlled A Fib Initially had a productive cough when URI symptoms began but now non- productive. Feels generally weak. BP dropped to 80s systolically when standing. Will hold Bumex and give gentle hydration Crackles heard in R base but no evidence of JVD. Mild swelling of lower extremities. WBC increased to 18 but no fevers. Was oxygenating adequately on RA during my assessment and supplemental O2 was shut off. Constitutional: + weakness (generalized), + problem reported (headache), No fever, No chills Respiratory: + cough, No sputum, No shortness of breath Cardiovascular: + chest pain, No orthopnea Abdomen: No pain, No nausea, No vomiting, No diarrhea, No constipation Musculoskeletal: + swelling (b/l lower extremities), No calf pain Female : No dysuria Heme: No abnormal bleeding/bruising Skin: No rash (Leilani Hatch, LISANDROC) Medications Current Inpatient Medications Medications (Trade) Dose Ordered Sig/Dajuan Route Start Time Stop Time Status Last Admin Dose Admin Acetaminophen (Tylenol Tab) 650 mg Q4H PRN PO 11/09/17 15:15 12/09/17 15:14 11/10/17 10:30 650 MG Al Hydrox/Mg Hydrox/Simethicone (Maalox Max Susp) 15 ml Q4H PRN PO 11/09/17 15:15 12/09/17 15:14 Magnesium Hydroxide (Milk Of Magnesia Susp) 30 ml Q12H PRN PO 11/09/17 15:15 12/09/17 15:14 Zolpidem Tartrate (Ambien Tab) 5 mg HSZ PRN PO 11/09/17 15:15 12/09/17 15:14 Ondansetron HCl (Zofran Inj) 4 mg Q6H PRN IV 11/09/17 15:15 12/09/17 15:14 Nitroglycerin (Nitrostat Tab) 0.4 mg UD PRN SL 11/09/17 15:15 12/09/17 15:14 Polyethylene (Miralax Powder Packet) 17 gm DAILY PRN PO 11/09/17 15:15 12/09/17 15:14 Albuterol (Ventolin Hfa Inhaler) 2 puffs QID PRN INH 11/09/17 15:15 12/09/17 15:14 Alprazolam (Xanax Tab) 0.25 mg BID PRN PO 11/09/17 15:15 12/09/17 15:14 Amiodarone HCl (Cordarone Tab) 200 mg DAILY PO 11/10/17 09:00 12/10/17 08:59 11/10/17 07:54 200 MG Aspirin (Ecotrin Tab) 81 mg DAILY PO 11/10/17 09:00 12/10/17 08:59 11/10/17 07:53 81 MG Atorvastatin Calcium (Lipitor Tab) 40 mg HS PO 11/09/17 21:00 12/09/17 20:59 11/09/17 20:16 40 MG Bumetanide (Bumex Tab) 1 mg BID17 PO 11/09/17 21:00 12/09/17 20:59 Future Hold 11/10/17 07:54 1 MG Clopidogrel Bisulfate (plAVix TAB) 75 mg DAILY PO 11/10/17 09:00 12/10/17 08:59 11/10/17 07:53 75 MG Ferrous Gluconate (Ferrous Gluconate Tab) 324 mg QAM PO 11/10/17 09:00 12/10/17 08:59 11/10/17 07:53 324 MG Gabapentin (Neurontin Cap) 300 mg HS PO 11/09/17 21:00 12/09/17 20:59 11/09/17 20:14 300 MG Insulin Glargine (Lantus Solostar Pen) 10 units BID SC 11/09/17 21:00 12/09/17 20:59 11/10/17 07:58 10 UNITS Metoprolol Tartrate (Lopressor Tab) 50 mg BID PO 11/09/17 21:00 12/09/17 20:59 11/10/17 07:54 50 MG Potassium Chloride (Klor-Con Tab) 20 meq DAILY PO 11/10/17 09:00 12/10/17 08:59 11/10/17 07:53 20 MEQ Primidone (Mysoline Tab) 50 mg DAILY PO 11/10/17 09:00 12/10/17 08:59 11/10/17 07:54 50 MG Sodium Bicarbonate (Sodium Bicarbonate Tab) 650 mg BID PO 11/09/17 21:00 12/09/17 20:59 11/10/17 07:54 650 MG Warfarin Sodium (Coumadin Tab) 2 mg SuMoWeFrSa@1600 PO 11/09/17 18:30 12/09/17 18:29 11/09/17 19:24 2 MG Warfarin Sodium (Coumadin Tab) 4 mg TuTh@1600 PO 11/10/17 16:00 12/10/17 15:59 Miscellaneous Information (Order Awaiting Action) 1 ea QS N/A 11/10/17 00:00 12/10/17 00:00 Insulin Aspart (novoLOG ASPART) SLIDING SCALE G... ACHS SC 11/09/17 16:00 12/09/17 15:59 11/10/17 07:58 3 UNITS Pantoprazole Sodium (Protonix Tab) 40 mg QAM PO 11/10/17 09:00 12/10/17 08:59 11/10/17 07:54 40 MG Albuterol/ Ipratropium (Duoneb) 3 ml Q4H PRN INH 11/09/17 15:15 12/09/17 15:14 Piperacillin Sod/ Tazobactam Sod 3.375 gm/Dextrose 115 ml @ 28.75 mls/ hr Q12H IV 11/09/17 22:00 11/16/17 21:59 11/10/17 10:30 28.75 MLS/HR Miscellaneous Information (Consult) 1 ea UD PRN N/A 11/09/17 15:15 12/09/17 15:14 Miscellaneous (Iv Fluids Completed) 1 ea PRN PRN N/A 11/09/17 16:00 11/09/18 15:59 Glucose (Glucose 40% Gel) 15-30 GRAMS 15 GRAMS... UD PRN PO 11/09/17 16:15 12/09/17 16:14 Glucose (Glucose Chew Tab) 4-8 Tablets 4 Tabl... UD PRN PO 11/09/17 16:15 12/09/17 16:14 Dextrose (Dextrose 50% 50ML Syringe) 25-50ML OF 50% DW IV FOR... UD PRN IV 11/09/17 16:15 12/09/17 16:14 Glucagon (Glucagon Inj) 1 mg UD PRN SQ 11/09/17 16:15 12/09/17 16:14 Sodium Chloride 1,000 ml @ 75 mls/hr [id number] IV 11/10/17 10:45 11/11/17 13:24 (Leilani Hatch, GERSON) Objective Vital Signs Date Time Temp Pulse Resp B/P (MAP) Pulse Ox O2 Delivery O2 Flow Rate FiO2 11/10/17 10:22 104/62 (76) 96/55 (69) 81/38 (52) 11/10/17 08:00 Nasal Cannula 2.0 11/10/17 07:05 36.5 67 16 101/57 (72) 98 Nasal Cannula 2.0 11/10/17 04:32 36.7 76 18 91/50 (64) 97 Nasal Cannula 2.0 11/10/17 04:00 Nasal Cannula 2.0 11/10/17 00:00 Nasal Cannula 2.0 11/09/17 22:41 36.9 82 18 93/58 (70) 97 Room Air 11/09/17 20:21 36.6 111 128/64 (85) 11/09/17 20:00 Nasal Cannula 2.0 11/09/17 19:30 37.5 111 18 137/78 (97) 97 Nasal Cannula 2.0 11/09/17 18:28 Nasal Cannula 2.0 11/09/17 17:45 36.9 104 18 125/72 (89) 94 Nasal Cannula 2.0 11/09/17 17:35 82 113/52 90 11/09/17 16:39 86 122/65 11/09/17 15:00 78 143/63 92 Room Air 11/09/17 14:22 78 14 148/57 97 Room Air 11/09/17 13:34 82 20 136/61 95 Room Air 11/09/17 12:31 88 20 160/54 96 11/09/17 12:28 84 11/09/17 12:22 100 Room Air 11/09/17 12:21 100 Room Air 11/09/17 12:05 36.4 74 16 135/95 100 Room Air (Leilani Hatch PA-C) Physical Exam General Appearance: no apparent distress Eyes: sclerae normal ENT: hearing grossly normal Neck: supple, no JVD, trachea midline Respiratory/Chest: no respiratory distress, no accessory muscle use, + crackles (R base) Cardiovascular: + irregularly irregular Abdomen: normal bowel sounds, non tender, soft Extremities: + swelling (trace to 1+ pitting edema b/l lower extremities) Neurologic/Psychiatric: alert Skin: normal color, warm/dry (Lielani Hatch, LISANDROC) Laboratory Results Last 24 Hours Test 11/09/17 13:23 11/09/17 13:38 11/09/17 16:09 11/09/17 18:26 White Blood Count 13.47 K/uL Red Blood Count 3.59 M/uL Hemoglobin 9.3 g/dL Hematocrit 29.1 % Mean Corpuscular Volume 81.1 fL Mean Corpuscular Hemoglobin 25.9 pg Mean Corpuscular Hemoglobin Concent 32.0 g/dl RDW Standard Deviation 59.0 fL RDW Coefficient of Variation 19.8 % Platelet Count 432 K/uL Mean Platelet Volume 9.3 fL Prothrombin Time 10.7 SECONDS Prothromb Time International Ratio 1.0 Activated Partial Thromboplast Time 25.4 SECONDS Partial Thromboplastin Ratio 1.0 Sodium Level 131 mmol/L Potassium Level 3.6 mmol/L Chloride Level 95 mmol/L Carbon Dioxide Level 24 mmol/L Anion Gap 12.0 mmol/L Blood Urea Nitrogen 42 mg/dl Creatinine 2.65 mg/dl Est Creatinine Clear Calc Drug Dose 19.8 ml/min Estimated GFR () 19.9 Estimated GFR (Non- 17.2 BUN/Creatinine Ratio 15.8 Random Glucose 151 mg/dl Calcium Level 9.1 mg/dl Total Bilirubin 0.3 mg/dl Aspartate Amino Transf (AST/SGOT) 67 U/L Alanine Aminotransferase (ALT/SGPT) 74 U/L Alkaline Phosphatase 191 U/L Total Creatine Kinase 35 U/L Creatine Kinase MB 1.5 ng/ml Creatine Kinase MB Ratio 4.3 Total Protein 7.6 gm/dl Albumin 3.0 gm/dl Globulin 4.6 gm/dl Albumin/Globulin Ratio 0.7 Bedside Troponin I < 0.030 ng/ml Urine Color YELLOW Urine Appearance TURBID Urine pH 6.0 Urine Specific [place] 1.018 Urine Protein 2+ Urine Glucose (UA) NEG Urine Ketones NEG Urine Occult Blood 3+ Urine Nitrite POS Urine Bilirubin NEG Urine Urobilinogen NEG Urine Leukocyte Esterase LARGE Urine WBC (Auto) >30 /hpf Urine RBC (Auto) >30 /hpf Urine Hyaline Casts (Auto) 5-10 /lpf Urine Epithelial Cells (Auto) >30 /lpf Urine Bacteria (Auto) 2+ Urine Renal Epithelial Cells 0-5 /lpf Urine Yeast (Auto) PRESENT Bedside Glucose 186 mg/dl Test 11/09/17 20:09 11/09/17 21:30 11/09/17 22:12 11/10/17 05:30 Bedside Glucose 87 mg/dl Creatine Kinase MB Ratio Creatine Kinase MB 0.7 ng/ml Troponin I 0.023 ng/ml Test 11/10/17 05:41 11/10/17 07:37 White Blood Count 18.83 K/uL Red Blood Count 3.40 M/uL Hemoglobin 8.9 g/dL Hematocrit 27.7 % Mean Corpuscular Volume 81.5 fL Mean Corpuscular Hemoglobin 26.2 pg Mean Corpuscular Hemoglobin Concent 32.1 g/dl RDW Standard Deviation 58.8 fL RDW Coefficient of Variation 19.7 % Platelet Count 355 K/uL Mean Platelet Volume 8.9 fL Prothrombin Time 11.3 SECONDS Prothromb Time International Ratio 1.1 Sodium Level 130 mmol/L Potassium Level 4.0 mmol/L Chloride Level 97 mmol/L Carbon Dioxide Level 26 mmol/L Anion Gap 7.0 mmol/L Blood Urea Nitrogen 48 mg/dl Creatinine 2.88 mg/dl Est Creatinine Clear Calc Drug Dose 18.0 ml/min Estimated GFR () 18.0 Estimated GFR (Non- 15.5 BUN/Creatinine Ratio 16.7 Random Glucose 149 mg/dl Calcium Level 9.3 mg/dl Magnesium Level 2.2 mg/dl Creatine Kinase MB 1.4 ng/ml Troponin I < 0.015 ng/ml Random Vancomycin Level 20.1 mcg/ml Bedside Glucose 158 mg/dl (Leilani Hatch, PAKaityC) Assessment and Plan Patient is a pleasant 72 y/o female, with PMHx of chronic a.fib on Coumadin, CAD s/p cardiac stenting, HTN, HLD, chronic diastolic CHF, COPD, T2DM, CKD stage IV, anemia of chronic disease, anxiety, depression, and GERD, who presented to the ED because of chest pain that occurred around 0900 today. Chest Pain - Likely Musculoskeletal vs PNA vs GI - RESOLVED - Rhythm monitoring only with rate controlled A Fib; Troponins negative Sepsis 2/2 HCAP: - Question of infiltrate on portable CXR with leukocytosis increased to 18 - Obtain PA/Lat CXR - Continue Zosyn and will D/C Vanc - Gentle hydration with NSS at 75 mL/hr x 2 bags as patient appears slightly dry and BP low -- Hold Bumex with hydration - Duonebs and inhalers PRN Persistent Atrial Fibrillation: Rate Controlled - Amiodarone 200 mg daily and Lopressor 50 mg BID - Continue Coumadin - INR currently subtherapeutic at 1.1 - continue to trend CAD S/P PCI and HTN/HLD and Chronic Diastolic CHF: Follows with Dr. Childers - Hold Bumex with gentle hydration - ASA 81 mg daily and Plavix 75 mg daily, Lipitor 40 mg HS Anemia of Chronic Disease: STABLE - Baseline around 9; Currently 8.9 and will monitor - Ferrous gluconate 324 mg daily T2DM with Peripheral Neuropathy: - Lantus 10 units SC BID and SSI - Gabapentin 300 mg daily CKD Stage IV: Baseline 2.8-3: Follows with Dr. Oliver - Continue to monitor; continue bicarb supplementation - stable at this time B/L Heel Wounds, R Arm Wound, Buttock Wound: - Wound care consultation DVT Prophylaxis: Coumadin Code Status: LEVEL V, DNR Disposition: - From home with and son - PT/OT evaluations - Updated son David extensively over the phone. Discussed current findings and treatment plan. Reviewed repeat CXR findings with him. Discussed current need for IV Abx as well as fluids for hypotension. Discussed hopeful discharge in the next coming days but will have to see how the clinical course goes as well as see improvement in her WBC count. Also expressed PT/OT evaluations were placed to keep her ambulating and prevent deconditioning. Also stated wound care will see her to assist with wound dressings and intervention. Continued [facility] stay due to: multiple IV medications needed Discharge planning: uncertain (Leilani Hatch, PA-C) Reviewed: Pt Seen/Exam by Me (Shirley Levine MD) History Physician Catering Administrative Assistant Supervision Note: I interviewed and examined the patient. Discussed with BUSHRA Hatch and agree with findings and plan as documented in the note. Any exceptions or clarifications are listed here: Patient reports her cough is improved. She still has some diffuse pain across her entire anterior chest wall into her shoulders that is tender to palpation in the shoulders. The pain is a little bit worse when she takes a deep breath and when she coughs. It has been constant now since 3 hours prior to admission. All troponins have been negative, EKGs without ischemic changes, telemetry monitoring with rate controlled atrial fibrillation. Her blood pressures were low and she was positive on her orthostatics today. Her diuretics were held and she was started on gentle IV fluid hydration. When she asked if she would be discharged tomorrow, I said it is unclear at this point-she told me that her son would be "disturbed" about this, but could not elaborate why. She said that he would just want her to be home. She denies any physical, emotional, or verbal abuse at home. She reports her cough has been going on over the last 2 weeks. Afebrile here but leukocytosis worsened today. Denies urinary symptoms. Denies abdominal pain. She does feel little short of breath. General Appearance: no apparent distress Eyes: sclerae normal ENT: hearing grossly normal Neck: supple, no JVD, trachea midline Respiratory/Chest: no respiratory distress, no accessory muscle use, + crackles (R base), decreased at left base, mild and expiratory wheezes in the upper airways Cardiovascular: + irregularly irregular, normal rate Abdomen: normal bowel sounds, non tender, soft Extremities: + swelling (trace to 1+ pitting edema b/l lower extremities), mild diffuse erythema consistent with chronic venous stasis changes, 1+ dorsalis pedis pulses bilaterally, right heel with 3 cm black eschar on the heel , bilateral lateral malleolus scabbed over ulcerations Neurologic/Psychiatric: alert Skin: Ulcers as above This patient is a 72-year-old female with chronic a.fib on Coumadin, PAD, CAD s/ p cardiac stenting, HTN, HLD, chronic diastolic CHF, COPD, T2DM, CKD stage IV, anemia of chronic disease, anxiety, depression, and GERD, who presented to the ED because of chest pain ongoing for over 3 hours and associated with cough for the last 2 weeks. Found to have bibasilar opacities and leukocytosis, tachycardia, and acute hypoxemic respiratory failure, all consistent with community-acquired pneumonia. Also with lower extremity swelling recently which has actually improved as an outpatient with diuretics, however is hypovolemic here and positive on her orthostatic vital signs. -Agree with holding diuretics, providing gentle IV fluid hydration -Continue Zosyn for pneumonia, but will add on Levaquin p.o. as this is not HCAP -we will see if leukocytosis improves, check pro calcitonin in the morning, follow blood cultures -also suspect possible UTI although no symptoms, but UA appears abnormal-we resent the urine culture -For her anemia check B12, folate, iron studies, she does have a significant microcytosis and elevated RDW which is more consistent with iron deficiency in addition to her anemia of chronic kidney disease -COPD-make albuterol/ipratropium nebs scheduled -It appears that she may not have been getting her Coumadin as an outpatient given that her INR is 1.1-she states that she has her INR checked at home by her son and that he administers all her medications-will bridge with heparin drip given her high risk for stroke, also ruling out for DVT with bilateral Doppler and lower extremities for worsening edema Documented By: Shirley Levine (Shirley Levine MD)
[2017-11-10] MEDS: SODIUM CHLORIDE 0.9% 1000ML 1,000 ML IV SCH (11:30)
[2017-11-10] MEDS ORDERED: LIDODERM (LIDOCAINE) PATCH 5% TD ONE (12:36)
--- NOTE | 2017-11-10 13:24 | DIAGNOSTIC IMAGING REPORT ---
CHEST 2 VIEWS ROUTINE HISTORY: Dyspnea. COMPARISON: Chest 11/09/2017. FINDINGS: No pneumothorax. Small bilateral pleural effusions and bibasilar densities are again noted. The heart is mildly enlarged. No evidence for pulmonary edema. The upper lungs and remain clear. The patient is slightly rotated. Mild anterior wedging within the lower thoracic spine vertebral bodies. This is likely old. IMPRESSION: No change in the small bilateral pleural effusions and bibasilar densities. This could represent atelectasis or pneumonia. Electronically signed by: Richard Garcia M.D. 11/10/2017 1:22 PM Dictated Date/Time: 11/10/2017 1:21 PM
[2017-11-10] MEDS: HEPARIN 25,000 UNIT/500ML D5W 500 ML IV SCH (14:12)
[2017-11-10 14:24] LABS: BASO % 0.2 %; BASO ABS # 0.03 K/uL (0-0.2); EOS % 0.2 %; EOS ABS # 0.03 K/uL (0-0.5); HEMATOCRIT 25.9 % (37-47); HEMOGLOBIN 8.2 g/dL (12.0-16.0); IG# 0.08 K/uL (0.00-0.02); LYMPH % 6.7 %; LYMPH ABS # 1.22 K/uL (1.2-3.4); MEAN CELL VOLUME 81.4 fL (80-100); MEAN CORPUSCULAR HEMOGLOBIN 25.8 pg (25-34); MEAN PLATELET VOLUME 9.1 fL (7.4-10.4); MONO ABS # 1.45 K/uL (0.11-0.59); NEUT % 84.5 %; NEUT ABS # 15.37 K/uL (1.4-6.5); PLATELET COUNT 324 K/uL (130-400); RED CELL DISTRIBUTION WIDTH CV 19.5 % (11.5-14.5); RED CELL DISTRIBUTION WIDTH SD 58.2 fL (36.4-46.3); WHITE BLOOD COUNT 18.18 K/uL (4.8-10.8)
[2017-11-10 14:30] LABS: MEAN CORPUSCULAR HGB CONC 31.7 g/dl (32-36)
[2017-11-10 14:37] LABS: INR 1.1 (0.9-1.1); PTT PATIENT 32.2 SECONDS (21.0-31.0)
[2017-11-10] MEDS ORDERED: WARFARIN SOD 4 MG TAB PO SCH (16:00)
[2017-11-10] MEDS: GABAPENTIN 300 MG CAP PO SCH (20:37)
[2017-11-10] MEDS: ATORVASTATIN 40 MG TAB PO SCH (20:37)
[2017-11-10 20:44] LABS: PTT PATIENT 62.6 SECONDS (21.0-31.0)
--- NOTE | 2017-11-10 23:08 | DIAGNOSTIC IMAGING REPORT ---
BILATERAL LOWER EXTREMITY VENOUS DOPPLER HISTORY: Acute bilateral lower extremity swelling leg swelling, rule out DVT COMPARISON STUDY: None. FINDINGS: There is normal compressibility, flow, and augmentation within the bilateral lower extremity deep venous systems. IMPRESSION: No sonographic evidence of deep venous thrombosis within the right or left lower extremity. Electronically signed by: Parker Velásquez M.D. 11/10/2017 11:07 PM Dictated Date/Time: 11/10/2017 11:06 PM
[2017-11-11] VITALS (7 sets, daily range): BP systolic 103–128; BP diastolic 60–77; PULSE 59–95; TEMP 36.2–36.9; O2SAT 92–95
[2017-11-11] MEDS: SODIUM CHLORIDE 0.9% 1000ML 1,000 ML IV SCH (00:43)
[2017-11-11 06:23] LABS: HEMATOCRIT 26.8 % (37-47); HEMOGLOBIN 8.5 g/dL (12.0-16.0); MEAN CORPUSCULAR HEMOGLOBIN 25.7 pg (25-34); MEAN CORPUSCULAR HGB CONC 31.7 g/dl (32-36); MEAN PLATELET VOLUME 10.3 fL (7.4-10.4); PLATELET COUNT 373 K/uL (130-400); RED CELL DISTRIBUTION WIDTH CV 19.6 % (11.5-14.5); RED CELL DISTRIBUTION WIDTH SD 58.4 fL (36.4-46.3)
[2017-11-11 06:50] LABS: INR 1.1 (0.9-1.1)
[2017-11-11 06:51] LABS: PTT PATIENT 65.1 SECONDS (21.0-31.0)
[2017-11-11 06:55] LABS: CALCIUM 8.7 mg/dl (8.5-10.1); CREATININE 2.94 mg/dl (0.60-1.20); POTASSIUM 3.6 mmol/L (3.5-5.1)
[2017-11-11] MEDS ORDERED: LEVOFLOXACIN 750 MG TAB PO SCH (07:00)
[2017-11-11] MEDS: AMIODARONE 200 MG TAB PO SCH (08:21)
[2017-11-11] MEDS: CLOPIDOGREL BISULFATE 75 MG TAB PO SCH (08:21)
[2017-11-11] MEDS: FERROUS GLUCONATE 324 MG TAB PO SCH (08:21)
[2017-11-11] MEDS: PRIMIDONE 50 MG TAB PO SCH (08:21)
[2017-11-11] MEDS: ASPIRIN 81 MG ECTAB PO SCH (08:22)
[2017-11-11] MEDS: PANTOprazole SOD 40 MG TAB PO SCH (08:22)
[2017-11-11] MEDS: METOPROLOL TARTRATE 50 MG TAB PO SCH (08:22)
[2017-11-11] MEDS: SODIUM BICARBONATE 650 MG TAB PO SCH (08:22)
[2017-11-11] MEDS: INSULIN ASPART 100 UNITS/ML 3 ML PEN SC SCH ×2 (08:24→12:00)
[2017-11-11] MEDS: INSULIN GLARGINE SOLOSTAR 100 UNITS/ML 3 ML PEN SC SCH (08:25)
[2017-11-11] MEDS: ALBUT/IPRATROP 3MG/0.5MG NEB 3 ML VIAL INH SCH ×2 (08:36→14:09)
[2017-11-11] MEDS ORDERED: LIDODERM (LIDOCAINE) PATCH 5% TD SCH (09:00)
[2017-11-11] MEDS: HEPARIN 25,000 UNIT/500ML D5W 500 ML IV SCH (10:12)
[2017-11-11] MEDS: PIPERACILL/TAZOBAC IV 3.375 GM in DEXTROSE 5% 100ML 100 ML IV SCH (10:33)
--- NOTE | 2017-11-11 10:40 | Clinical Documentation Query ---
CLINICAL DOCUMENTATION QUERY 72 yo female admitted for sepsis due to HCAP has urinalyses x 2 showing 2-3+ bacteria and >30 WBCs. In your clinical opinion is this patient being managed for: (x ) Urinary tract infection - Possible ( ) Not Agree ( ) Other explanation of clinical findings (Please Explain) ( ) Unable to determine (Please Define) ( ) Need to Discuss The medical record reflects the following clinical findings, treatment, and risk factors. Clinical Indicators: As above Treatment: Piperacillin IV, Vancomycin IV, hydration, UA micro Risk Factors: Please clarify and document your clinical opinion in the progress notes and discharge summary. Terms such as "probable", "suspected", "likely", "questionable", "possible", or "still to be ruled out" are acceptable. IF IN AGREEMENT, YOU MUST DOCUMENT ABOVE DIAGNOSTIC STATEMENT IN DAILY PROGRESS NOTES AND DISCHARGE SUMMARY. This document is not part of the patient's record. Thank You, Laura Burt RN [phone]
[2017-11-11 11:25] LABS: INFLUENZA B ANTIGEN Neg for Influ B (NEG)
[2017-11-11] MEDS ORDERED: FERR325T18 PO (13:15)
[2017-11-11] MEDS ORDERED: LVQ750 PO (13:15)
[2017-11-11] MEDS ORDERED: ENOX80IN SQ (13:20)
--- NOTE | 2017-11-11 13:58 | Discharge Instructions ---
Discharge Instructions Date of Service Nov 11, 2017. Admission Reason for Admission: Chest Pain Atypical/Pna Discharge Discharge Diagnosis / Problem: Pneumonia Discharge Goals Goal(s): Decrease discomfort, Improve function, Increase independence Activity Recommendations Activity Limitations: resume your previous activity . Instructions / Follow-Up Instructions / Follow-Up Pneumonia: - You will need to continue antibiotics. Due to underlying kidney disease your dosing will be every other day. - You had antibiotics today. Take Levaquin 750 mg on 11/13, 11/15, 11/17, and 11/19 and you will be done with antibiotics - That cough can linger awhile but should get a little better each day. - You can use over the counter lidoderm patches for any upper chest or shoulder pains that occur with coughing - Continue your inhalers and use the spacer to help get that medicine down in your lungs RECOMMEND TO HOLD BUMEX FOR THE NEXT 3 DAYS TO FULLY RECOVER FROM PNEUMONIA THIS IS A WATER PILL Recommend to continue to check your weight daily and watch for signs of too much fluid and continue to follow with your kidney doctor Atrial Fibrillation: - Your Coumadin level is still low at 1.1 and we would like to see this between 2 and 3 - You will need to have a daily injection of Lovenox in the belly AND take your Coumadin - You may resume your previously prescribed Coumadin and have your INR ( Coumadin level) checked tomorrow and have the home nurses adjust the dosing as needed. Anemia: - Your hemoglobin (blood counts) are chronically low but to help this we did increase your iron to twice a day. - Watch for constipation but this will help your blood counts Please follow up with Whitney Snyder PA-C in Dr. Barroso's office on Thursday, November 16, 2017 at 9:00am. *If you need to reschedule this appointment please call the office at [phone]. Current Hospital Diet Patient's current hospital diet: AHA Diet (Heart Healthy), Diabetes Type 2 Diet Discharge Diet Recommended Diet: Low Sodium Diet (2gm Na), Diabetes Type 2 Diet Pending Studies Studies pending at discharge: no Laboratory Results Hemoglobin A1c Test 09/16/17 07:30 Range/Units Estimated Average Glucose 180 mg/dl Hemoglobin A1c 7.9 H 4.5-5.6 % Medical Emergencies . Who to Call and When: Medical Emergencies: If at any time you feel your situation is an emergency, please call 911 immediately. . Non-Emergent Contact Non-Emergency issues call your: Primary Care Provider Call Non-Emergent contact if: you have a fever, your pain is concerning you, you have any medication questions . . "Provider Documentation" section prepared by Leilani Hatch. .
[2017-11-11] MEDS ORDERED: ENOXAPARIN 80 MG/0.8 ML SYR SQ ONE (15:15)
[2017-11-11] MEDS ORDERED: WARFARIN SOD 6 MG TAB PO SCH (16:00)
[2017-11-11] MEDS ORDERED: WARFARIN SOD 4 MG TAB PO SCH (16:00)
[2017-11-11] MEDS ORDERED: FERROUS GLUCONATE 324 MG TAB PO SCH (17:00)
--- NOTE | 2017-11-11 18:21 | Discharge Summary ---
Discharge Summary Date of Service Nov 11, 2017. Discharge Summary Admission Date: Nov 10, 2017 at 13:45 Discharge Date: Nov 11, 2017 Discharge Disposition: Home with services Principal Diagnosis: Pneumonia and Possible UTI Problems/Secondary Diagnoses: 1. Chronic A Fib on Coumadin 2, CAD S/P Cardiac Stenting 3. HTN 4. HLD 5. Chronic Diastolic CHF 6. COPD 7. T2DM 8. CKD Stage IV 9. Anemia of Chronic Disease 10. Anxiety 11. Depression 12. GERD Immunizations: Have You Had Influenza Vaccine: Yes Influenza Vaccine Date: May 16, 2006 History of Tetanus Vaccine?: Yes History of Pneumococcal: No History of Hepatitis B Vaccine: No Procedures: BILATERAL LOWER EXTREMITY VENOUS DOPPLER FINDINGS: There is normal compressibility, flow, and augmentation within the bilateral lower extremity deep venous systems. IMPRESSION: No sonographic evidence of deep venous thrombosis within the right or left lower extremity. CHEST 2 VIEWS ROUTINE FINDINGS: No pneumothorax. Small bilateral pleural effusions and bibasilar densities are again noted. The heart is mildly enlarged. No evidence for pulmonary edema. The upper lungs and remain clear. The patient is slightly rotated. Mild anterior wedging within the lower thoracic spine vertebral bodies. This is likely old. IMPRESSION: No change in the small bilateral pleural effusions and bibasilar densities. This could represent atelectasis or pneumonia. Consultations: 1. PT/OT Medication Reconciliation New Medications: Enoxaparin (Lovenox) 80 Mg/0.8 Ml Inj 80 MG SQ DAILY for 3 Days, #3 SYR Start on 11/12/17. Levofloxacin (Levofloxacin) 750 Mg Tab 750 MG PO Q2D@1100, #4 TAB Take on 11/13, 11/15, 11/17, and 11/19 Changed Medications: Ferrous Gluconate (Ferrous Gluconate) 324 Mg Tab 324 MG PO BID for 30 Days, #60 TABS (Changed from: QAM) Continued Medications: Acetaminophen (Tylenol) 500 Mg Tab 500 MG PO DAILY PRN for Pain Albuterol Hfa (Ventolin Hfa) 200 Puffs/46991 Mcg Aers 2 PUFFS INH QID PRN for Shortness of Breath Alprazolam (Xanax) 0.25 Mg Tab 0.25 MG PO BID PRN for Anxiety Amiodarone Hcl (Cordarone) 200 Mg Tab 200 MG PO DAILY Aspirin (Aspirin Ec) 81 Mg Tab 81 MG PO DAILY Atorvastatin (Lipitor) 40 Mg Tab 40 MG PO HS Bumetanide (Bumex) 1 Mg Tab 1 MG PO BID Clopidogrel (Plavix) 75 Mg Tab 75 MG PO DAILY Gabapentin (Neurontin) 300 Mg Cap 300 MG PO HS Insulin Aspart (Novolog) 100 Units/Ml Inj 10 UNITS SC DAILY TAKE BEFORE SUPPER Insulin Glargine (Lantus Solostar) 100 Unit/Ml Inj 10 UNITS SC AMPM Metoprolol Tartrate (Lopressor) (Lopressor) 50 Mg Tab 50 MG PO BID Mometasone Furoate-Formoterol (Dulera 100/5 Mcg) 1 Aer Aer 2 PUFF INH BID Nitroglycerin (Nitrostat) 0.4 Mg Tab 0.4 MG UT PRN Omeprazole (Prilosec) 20 Mg Capcr 20 MG PO BID BEFORE MEALS Potassium Ext Rel (Klor-Con) 20 Meq Tabcr 20 MEQ PO DAILY Primidone (Mysoline) 50 Mg Tab 50-100 MG PO DIRECTED TAKE 1 TAB DAILY X1 WEEK THEN INCREASE TO 2 TABS DAILY. PRESCRIBED 09/28/17 Sodium Bicarbonate (Sodium Bicarbonate) 650 Mg Tab 650 MG PO BID Warfarin Sod (Jantoven) 2 Mg Tab 4 MG PO 2XWK THURSDAY & THURSDAY Warfarin Sod (Jantoven) 2 Mg Tab 2 MG PO 5XWK TAKE DAILY EXCEPT THURSDAY AND Discharge Exam Review of Systems: Constitutional: + weakness (generalized weakness), No fever, No chills ENT: No nasal symptoms, No sore throat Respiratory: + cough, No sputum, No shortness of breath Cardiovascular: No chest pain Abdomen: No pain, No nausea, No vomiting, No diarrhea, No constipation Musculoskeletal: No swelling, No calf pain Genitourinary - Female: No dysuria Hematologic / Lymphatic: No abnormal bleeding/bruising Physical Exam: General Appearance: WD/WN, no apparent distress Eyes: sclerae normal ENT: hearing grossly normal Neck: supple, no JVD, trachea midline Respiratory/Chest: lungs clear, no respiratory distress, no accessory muscle use, + decreased breath sounds (bases b/l) Cardiovascular: + irregularly irregular Abdomen / GI: normal bowel sounds, non tender, soft Extremities: no pedal edema Neurologic/Psychiatric: alert, oriented x 3 Skin: normal color, warm/dry Hospital Course ADMISSION: Patient is a pleasant 72 y/o female, with PMHx of chronic a.fib on Coumadin, CAD s/p cardiac stenting, HTN, HLD, chronic diastolic CHF, COPD, T2DM , CKD stage IV, anemia of chronic disease, anxiety, depression, and GERD, who presented to the ED because of chest pain that occurred around 0900 today. Patient was sitting there when the pain came on suddenly. Centralized chest pain radiating across entire chest. She denies any other radiation sites. She admits pain is worsened w/ touch, movement, cough. She took two nitro at home w/ out relief. She was given nitro patch and Fentanyl. Pain is still mildly present , but again worsens significantly with movement. She has had a cough for roughly 1.5 weeks now. She has started to develop green sputum production. About 1 month ago, Lasix was changed to Bumex by Dr. Oliver and BLE edema has significantly improved. Patient denies any fever, chills, sweats, lightheadedness, dizziness, vision changes, palpitations, SOB, wheezing, abdominal pain, nausea, vomiting, diarrhea, urinary symptoms, melena, numbness/ tingling, weakness, muscle/joint pain, anxiety/depression, active bleeding, or new skin discoloration/changes. HOSPITAL COURSE: Chest Pain - Likely Musculoskeletal vs PNA vs GI - RESOLVED - Rhythm monitoring only with rate controlled A Fib; Troponins negative - Pain seemed to be more in the shoulders and reproducible Sepsis 2/2 Pneumonia and Possible UTI: RESOLVED - Question of infiltrate on portable CXR with leukocytosis increased to 18 but trending down and afebrile - Will continue renally dosed Levaquin to complete a 10 day course of antibiotics - Patient was asymptomatic from a urinary standpoint but UA suggest infection however culture was not helpful for confirmation and Levaquin should cover most urine pathogens Persistent Atrial Fibrillation: Rate Controlled - Amiodarone 200 mg daily and Lopressor 50 mg BID - Continue Coumadin - INR currently subtherapeutic at 1.1 - will bridge with Lovenox x 3 more days with INR check tomorrow - Patient and son was taught at bedside how to perform which he does give her insulin injections as well as himself CAD S/P PCI and HTN/HLD and Chronic Diastolic CHF: Follows with Dr. Childers - Hold Bumex for the next couple days as she was orthostatic initially and gave some gentle hydration. No current signs of volume overload but expressed to the son to watch her weight and only to hold for the next 3 days but if she gets more swelling to resume this or can even just do it once a day until she gets a little more improved from her pneumonia - ASA 81 mg daily and Plavix 75 mg daily, Lipitor 40 mg HS Anemia of Chronic Disease: STABLE - Baseline around 9; Currently 8.9 and will monitor - Increased Ferrous gluconate 324 mg daily to BID CKD Stage IV: Baseline 2.8-3: Follows with Dr. Oliver - Continue to monitor; continue bicarb supplementation - stable at this time B/L Heel Wounds, R Arm Wound, Buttock Wound: - Continue wound care Disposition: - Patient is hemodynamically stable for discharge and did do a limited two-step given intermittent drops in saturation however did not qualify for oxygen. However a full ambulatory test could not be done due to weakness. Patient initially mentioned willingness to go to rehab and did go and discuss with her as she is alert and oriented but said she would rather go home. Discussed with son who said that they would like her to go home. Will see if she can have home PT/OT which she agrees would be okay. Family did say "it makes no sense to go to [facility] for pneumonia" but did try to explain deconditioning. Extensive updates were given to patient and son as he expressed multiple grievances related to a prior admission. All questions and concerns answered. As well as verbal and written instructions. Total Time Spent: Greater than 30 minutes This includes examination of the patient, discharge planning, medication reconciliation, and communication with other providers. Discharge Instructions Please refer to the electronic Patient Visit Report (Discharge Instructions) for additional information. Additional Copies To Sanchez Barroso M.D.; Whitney Snyder P.A.
== END 2017-11-11 16:20 | disposition home health service (06) | DRG 871 ==
LOC: EDBD 12:01 → C.EDB 12:02 → C.MED 15:15 → ENRESERV 15:29 → OBSVTOIN 11-10 13:45
PROVIDERS: ADMIT Internal Medicine; ATTEND Family Medicine
DX: A41.9 Sepsis, unspecified organism (principal); J18.9 Pneumonia, unspecified organism; I13.0 Hypertensive heart and chronic kidney disease with heart failure and stage 1 through stage 4 chronic kidney disease, or unspecified chronic kidney disease; I50.32 Chronic diastolic (congestive) heart failure; N18.4 Chronic kidney disease, stage 4 (severe); I24.9 Acute ischemic heart disease, unspecified; N39.0 Urinary tract infection, site not specified; I48.2 Chronic atrial fibrillation; I25.10 Atherosclerotic heart disease of native coronary artery without angina pectoris; Z95.5 Presence of coronary angioplasty implant and graft; E78.5 Hyperlipidemia, unspecified; D63.8 Anemia in other chronic diseases classified elsewhere; Z66 Do not resuscitate; F41.9 Anxiety disorder, unspecified; F32.9 Major depressive disorder, single episode, unspecified; K21.9 Gastro-esophageal reflux disease without esophagitis; E11.40 Type 2 diabetes mellitus with diabetic neuropathy, unspecified; S91.301A Unspecified open wound, right foot, initial encounter; S91.302A Unspecified open wound, left foot, initial encounter; S31.809A Unspecified open wound of unspecified buttock, initial encounter; E11.22 Type 2 diabetes mellitus with diabetic chronic kidney disease; Z83.3 Family history of diabetes mellitus; Z79.01 Long term (current) use of anticoagulants; Z87.891 Personal history of nicotine dependence; Z79.4 Long term (current) use of insulin; Z79.82 Long term (current) use of aspirin; Z82.49 Family history of ischemic heart disease and other diseases of the circulatory system

== ENCOUNTER → 2017-11-23 | Outpatient (CLI) | payer OTHER ==
[~2017-11-23] MED LIST changes: +ACET-1256 PO; +ALPR0.25 PO; -AMOX875T PO; +ASPI81TA28 PO; +BUME1TAB PO; -CMD25 PO; +FERR325T18 PO; -FRS/40 PO; +LVQ750 PO; +METO50TA16 PO; -MRLP17X PO; +NTRGSL/4 UT; -NUTR-7 PO; +POTA-639 PO; +PRIM50TA29 PO; +SODI650T8 PO; -TRAM-10 PO; +VNTHFA/IN INH; +WARF2TAB8 PO
[2017-11-23 14:34] LABS: HEMATOCRIT 28.3 % (37-47); MEAN CELL VOLUME 81.3 fL (80-100); MEAN CORPUSCULAR HEMOGLOBIN 25.9 pg (25-34); MEAN CORPUSCULAR HGB CONC 31.8 g/dl (32-36); MEAN PLATELET VOLUME 9.6 fL (7.4-10.4); PLATELET COUNT 472 K/uL (130-400); RED CELL DISTRIBUTION WIDTH CV 19.8 % (11.5-14.5); RED CELL DISTRIBUTION WIDTH SD 58.5 fL (36.4-46.3); WHITE BLOOD COUNT 10.29 K/uL (4.8-10.8)
[2017-11-23 15:01] LABS: ALBUMIN 2.7 gm/dl (3.4-5.0); BLOOD UREA NITROGEN 54 mg/dl (7-18); CALCIUM 8.8 mg/dl (8.5-10.1); CARBON DIOXIDE 24 mmol/L (21-32); CREATININE 2.88 mg/dl (0.60-1.20); GLUCOSE 120 mg/dl (70-99); PHOSPHORUS 4.1 mg/dl (2.5-4.9); POTASSIUM 4.1 mmol/L (3.5-5.1); SODIUM 128 mmol/L (136-145)
== END | disposition home or self-care (01) ==
LOC: C.LAB1850 13:54
PROVIDERS: ATTEND Physician Assistant
DX: R60.9 Edema, unspecified (principal); D64.9 Anemia, unspecified; E87.1 Hypo-osmolality and hyponatremia; N18.9 Chronic kidney disease, unspecified; E87.6 Hypokalemia; I50.9 Heart failure, unspecified

== ENCOUNTER → 2017-11-25 | Outpatient (CLI) | payer OTHER ==
--- NOTE | 2017-11-25 16:06 | DIAGNOSTIC IMAGING REPORT ---
ULTRASOUND R VENOUS DOPP LOWER EXT UNILAT CLINICAL HISTORY: Left leg pain and swelling COMPARISON STUDY: No previous studies for comparison. FINDINGS: Real-time and color flow Doppler imaging were performed. Flow was seen within the femoral, popliteal and calf veins with no intraluminal thrombus demonstrated. The saphenous vein is patent. Evaluation the calf veins was limited due to marked edema. IMPRESSION: No evidence of right lower extremity DVT. Electronically signed by: Elieser Cha M.D. 11/25/2017 4:04 PM Dictated Date/Time: 11/25/2017 4:04 PM
== END | disposition home or self-care (01) ==
LOC: C.ULTR 15:31
PROVIDERS: ATTEND Emergency Medicine
DX: M79.604 Pain in right leg (principal)

== ENCOUNTER 2017-12-19 17:12 | Inpatient (IN) | payer OTHER ==
[~2017-12-19] VITALS: Ht 167.6 cm; Wt 79.6 kg
[~2017-12-19 17:12] MED LIST changes: +FURO-85 PO; -INSDGIPEN SC; +INSDGIPEN SQ; -NVLG SC; +NVLG SQ
[2017-12-19] MEDS ORDERED: SODIUM CHLORIDE 0.9% 500ML 500 ML IV STA (17:33)
[2017-12-19] MEDS ORDERED: DEXTROSE 50% 50 ML SYR ONE (17:35)
[2017-12-19] MEDS ORDERED: DEXTROSE 50% 50 ML SYR IV ONE ×2 (17:45→18:30)
[2017-12-19 17:53] LABS: BASO % 0.1 %; BASO ABS # 0.02 K/uL (0-0.2); EOS % 0.2 %; EOS ABS # 0.03 K/uL (0-0.5); HEMATOCRIT 30.6 % (37-47); HEMOGLOBIN 9.7 g/dL (12.0-16.0); IG# 0.05 K/uL (0.00-0.02); LYMPH ABS # 0.68 K/uL (1.2-3.4); MEAN CELL VOLUME 81.4 fL (80-100); MEAN CORPUSCULAR HEMOGLOBIN 25.8 pg (25-34); MEAN CORPUSCULAR HGB CONC 31.7 g/dl (32-36); MEAN PLATELET VOLUME 10.2 fL (7.4-10.4); MONO ABS # 1.68 K/uL (0.11-0.59); NEUT % 85.4 %; PLATELET COUNT 387 K/uL (130-400); RED CELL DISTRIBUTION WIDTH SD 53.8 fL (36.4-46.3); WHITE BLOOD COUNT 16.86 K/uL (4.8-10.8)
[2017-12-19] MEDS ORDERED: FERR325T18 PO (17:59)
[2017-12-19 18:04] LABS: INR 1.5 (0.9-1.1); PTT PATIENT 33.2 SECONDS (21.0-31.0)
--- NOTE | 2017-12-19 18:17 | DIAGNOSTIC IMAGING REPORT ---
CHEST ONE VIEW PORTABLE CLINICAL HISTORY: Acute change in mental status. Lethargy, bradycardia. COMPARISON STUDY: 11/10/2017 FINDINGS: The heart remains enlarged. There is no failure. There are improving bibasal airspace opacities. Trace pleural effusions cannot be excluded.[ IMPRESSION: Persistent cardiomegaly. Improving bibasal airspace opacities. Electronically signed by: Elieser Cha M.D. 12/19/2017 6:15 PM Dictated Date/Time: 12/19/2017 6:14 PM
[2017-12-19 18:20] LABS: ALBUMIN 2.6 gm/dl (3.4-5.0); CALCIUM 8.8 mg/dl (8.5-10.1); CREATININE 3.23 mg/dl (0.60-1.20); TOTAL PROTEIN 7.4 gm/dl (6.4-8.2)
[2017-12-19] MEDS ORDERED: DEXTROSE 10% 1,000 ML IV ONE (18:30)
[2017-12-19] MEDS ORDERED: GLUCOSE 10 TABS/TUBE PO PRN (18:30)
[2017-12-19] MEDS ORDERED: CARBOHYDRATES FOR HYPOGLYCEMIA PO PRN (18:30)
[2017-12-19] MEDS ORDERED: DEXTROSE 50% 50 ML SYR IV PRN (18:30)
[2017-12-19] MEDS ORDERED: GLUCOSE 40% GEL 15 GM TUBE PO PRN (18:30)
[2017-12-19] MEDS ORDERED: GLUCAGON FOR INJ 1 MG VIAL IM PRN (18:30)
--- NOTE | 2017-12-19 18:39 | DIAGNOSTIC IMAGING REPORT ---
CT HEAD WITHOUT CONTRAST (CT) CLINICAL HISTORY: Acute change in mental status COMPARISON STUDY: 07/09/2017 TECHNIQUE: Axial CT of the brain is performed from the vertex to the skull base. IV contrast was not administered for this examination. A dose lowering technique was utilized adhering to the principles of ALARA. CT DOSE: 537.48 mGy.cm FINDINGS: No intra or extra-axial mass lesions are visualized. There is no CT evidence of acute cortical infarction. There is no evidence of midline shift. There is no acute hemorrhage. No calvarial fractures are visualized. There are moderate white matter hypodensities likely on a small vessel basis. There is scattered old lacunar infarcts. There is no evidence of pathologic ventricular dilatation. There is fluid within the sphenoid sinus. IMPRESSION: 1. Sphenoid sinus air-fluid level. 2. Moderate white matter disease, likely a small vessel ischemic basis Electronically signed by: Elieser Cha M.D. 12/19/2017 6:37 PM Dictated Date/Time: 12/19/2017 6:36 PM
[2017-12-19] MEDS ORDERED: CEFTRIAXONE SOD INJ 1 GM ADDVIAL IV STA (18:48)
[2017-12-19] MEDS ORDERED: ONDANSETRON INJ 2 MG/ML 2 ML VIAL IV PRN (19:45)
[2017-12-19] MEDS ORDERED: ALPRAZOLAM 0.25 MG TAB PO PRN (19:45)
[2017-12-19] MEDS ORDERED: NITROGLYCERIN 0.4 MG SL PER TAB CHARGE UT SCH (19:45)
[2017-12-19] MEDS ORDERED: ACETAMINOPHEN 500 MG TAB PO PRN (19:45)
[2017-12-19] MEDS ORDERED: ALBUTEROL HFA 8 GM INHALER INH PRN (19:45)
[2017-12-19] MEDS ORDERED: ALUMINUM/MAGNESIUM/SIMETH (MAALOX MAX) 30 ML UDC PO PRN (19:45)
[2017-12-19] MEDS ORDERED: WARFARIN SOD 5 MG TAB PO ONE (19:45)
[2017-12-19] MEDS ORDERED: POLYETHYLENE (MIRALAX) 17 GM PACK PO PRN (19:45)
[2017-12-19] MEDS ORDERED: MAGNESIUM HYDROXIDE SUSP 30 ML UDC PO PRN (19:45)
--- NOTE | 2017-12-19 20:11 | History and Physical ---
History & Physical Date & Time of Service: December 19, 2017 at 20:10 Chief Complaint: Lethargic, Bradycardia Primary Care Physician: Sanchez Barroso M.D. History of Present Illness Source: patient, hospital records This is a 72 yo f with a h/o chronic diastolic CHF, CAD, DMII, COPD that presents to us with ALOC and confusion which occurred prior to arrival. When seeing the patient for the interview the patient was not altered nor confused and was able to answer questions regarding the incident with the help of her . The patient states that earlier today she was generally feeling unwell. She started to feel "foggy and a sensation of stumbling" but never fell as she was in an electric wheelchair. Her and daughter noticed she was confused and looked unwell and "blue' so an ambulance was called. When asked if she was given insulin earlier today they were unable to confirm however per ED note she was apparently given 10 units of insulin. She denies any chest pain, SOB, abdominal pain but does have right flank pain and notes she has had increasing incontinence and dysuria the past 48 hours. Denies blood in stool. According to the son and the patient she has sever diabetic neuropathy and she is basically non ambulatory except with a lot of guidance and assistance. She also is seeing wound care for her open wounds on bilat heels and shins. She also has a sacral pressure ulcer according to the son. These were all freshly dressed by the clinic and dressings were clean. Past Medical/Surgical History Medical Problems: (chronic a.fib on Coumadin CAD s/p cardiac stenting HTN HLD chronic diastolic CHF COPD T2DM CKD stage IV anemia of chronic disease anxiety depression GERD Ambulatory dysfunction requiring electric wheelchair Peripheral neuropathy Family History Diabetes mellitus FH: gallbladder disease FH: heart disease FH: lung disease FHx: cancer Hypertension Social History Smoking Status: Former Smoker Smokeless Tobacco Use: No Alcohol Use: none Drug Use: none Marital Status: Housing status: lives with family Occupational Status: retired Immunizations History of Influenza Vaccine: Yes Influenza Vaccine Date: May 16, 2006 History of Tetanus Vaccine?: Yes History of Pneumococcal: No History of Hepatitis B Vaccine: No Allergies Coded Allergies: No Known Allergies (Verified , 09/15/17) Home Medications Scheduled Amiodarone Hcl (Cordarone), 200 MG PO DAILY Aspirin (Aspirin Ec), 81 MG PO DAILY Atorvastatin (Lipitor), 40 MG PO HS Bumetanide (Bumex), 1 MG PO BID Clopidogrel (Plavix), 75 MG PO DAILY Ferrous Gluconate (Ferrous Gluconate), 324 MG PO BID Furosemide (Lasix), 60 MG PO BID Gabapentin (Neurontin), 300 MG PO HS Insulin Aspart (Novolog), 10 UNITS SQ DAILY Insulin Glargine (Lantus Solostar), 10 UNITS SQ AMPM Metoprolol Tartrate (Lopressor) (Lopressor), 50 MG PO BID Nitroglycerin (Nitrostat), 0.4 MG UT PRN Omeprazole (Prilosec), 20 MG PO BID Potassium Ext Rel (Klor-Con), 20 MEQ PO DAILY Primidone (Mysoline), 50-100 MG PO DIRECTED Sodium Bicarbonate (Sodium Bicarbonate), 650 MG PO BID Warfarin Sod (Jantoven), 4 MG PO 6XWK Warfarin Sod (Jantoven), 2 MG PO WK Scheduled PRN Acetaminophen (Tylenol), 500 MG PO DAILY PRN for Pain Albuterol Hfa (Ventolin Hfa), 2 PUFFS INH QID PRN for Shortness of Breath Alprazolam (Xanax), 0.25 MG PO BID PRN for Anxiety Mometasone Furoate-Formoterol (Dulera 100/5 Mcg), 2 PUFF INH BID PRN for SOB/ Wheezing Review of Systems Constitutional: No fever, No chills, No sweats Eyes: No worsening of vision ENT: No hearing loss Respiratory: No cough, No sputum, No wheezing, No shortness of breath, No dyspnea on exertion, No dyspnea at rest Cardiovascular: No chest pain Abdomen: No pain, No nausea, No vomiting, No diarrhea, No constipation, No GI bleeding Musculoskeletal: No joint pain, No muscle pain Genitourinary - Female: + dysuria, + urinary frequency, + urinary incontinence , No hematuria Neurologic: + weakness, + balance problems (BL), No numbness/tingling Psychiatric: No depression symptoms Endocrine: + fatigue Hematologic / Lymphatic: No abnormal bleeding/bruising Integumentary: + problem reported (wounds as above ), No rash Physical Exam Vital Signs Date Time Temp Pulse Resp B/P (MAP) Pulse Ox O2 Delivery O2 Flow Rate FiO2 12/19/17 19:46 44 20 132/51 98 Room Air 12/19/17 19:22 42 19 120/53 99 Room Air 12/19/17 18:33 42 16 129/42 98 Room Air 12/19/17 18:09 44 16 137/44 99 Room Air 12/19/17 17:50 45 12/19/17 17:35 36.8 46 18 107/66 98 Room Air 12/19/17 17:32 97 Room Air General Appearance: no apparent distress Head: normocephalic, atraumatic Eyes: normal inspection ENT: normal ENT inspection, + pertinent finding (poor dentition) Neck: supple Respiratory/Chest: normal breath sounds, no respiratory distress, no accessory muscle use Cardiovascular: no murmur, normal peripheral pulses, + bradycardia Abdomen/GI: normal bowel sounds, non tender, soft Back: normal inspection, + right CVA tenderness Extremities/Musculoskelatal: + pertinent finding (chronic changes from DM neuorpathy noted, right heel has a closed non draining ulcer, dressing on bilat ankles are clean ) Neurologic/Psych: alert (however weak ), oriented x 3 Skin: + pallor Lymphatic: no adenopathy Diagnostics Laboratory Results Results Past 24 Hours Test 12/19/17 17:40 12/19/17 18:05 12/19/17 19:14 Range/Units White Blood Count 16.86 4.8-10.8 K/uL Red Blood Count 3.76 4.2-5.4 M/uL Hemoglobin 9.7 12.0-16.0 g/dL Hematocrit 30.6 37-47 % Mean Corpuscular Volume 81.4 80-100 fL Mean Corpuscular Hemoglobin 25.8 25-34 pg Mean Corpuscular Hemoglobin Concent 31.7 32-36 g/dl Platelet Count 387 130-400 K/uL Mean Platelet Volume 10.2 7.4-10.4 fL Neutrophils (%) (Auto) 85.4 % Lymphocytes (%) (Auto) 4.0 % Monocytes (%) (Auto) 10.0 % Eosinophils (%) (Auto) 0.2 % Basophils (%) (Auto) 0.1 % Neutrophils # (Auto) 14.40 1.4-6.5 K/uL Lymphocytes # (Auto) 0.68 1.2-3.4 K/uL Monocytes # (Auto) 1.68 0.11-0.59 K/uL Eosinophils # (Auto) 0.03 0-0.5 K/uL Basophils # (Auto) 0.02 0-0.2 K/uL RDW Standard Deviation 53.8 36.4-46.3 fL RDW Coefficient of Variation 18.0 11.5-14.5 % Immature Granulocyte % (Auto) 0.3 % Immature Granulocyte # (Auto) 0.05 0.00-0.02 K/uL Prothrombin Time 15.8 9.0-12.0 SECONDS Prothromb Time International Ratio 1.5 0.9-1.1 Activated Partial Thromboplast Time 33.2 21.0-31.0 SECONDS Partial Thromboplastin Ratio 1.3 Sodium Level 130 136-145 mmol/L Potassium Level 5.0 3.5-5.1 mmol/L Chloride Level 95 98-107 mmol/L Carbon Dioxide Level 27 21-32 mmol/L Anion Gap 9.0 3-11 mmol/L Blood Urea Nitrogen 55 7-18 mg/dl Creatinine 3.23 0.60-1.20 mg/dl Est Creatinine Clear Calc Drug Dose 16.5 ml/min Estimated GFR () 15.7 Estimated GFR (Non- 13.5 BUN/Creatinine Ratio 17.2 10-20 Random Glucose 52 70-99 mg/dl Calcium Level 8.8 8.5-10.1 mg/dl Total Bilirubin 0.5 0.2-1 mg/dl Direct Bilirubin 0.2 0-0.2 mg/dl Aspartate Amino Transf (AST/SGOT) 60 15-37 U/L Alanine Aminotransferase (ALT/SGPT) 50 12-78 U/L Alkaline Phosphatase 189 45-117 U/L Troponin I 0.021 0-0.045 ng/ml Total Protein 7.4 6.4-8.2 gm/dl Albumin 2.6 3.4-5.0 gm/dl Urine Color YELLOW Urine Appearance TURBID CLEAR Urine pH 5.5 4.5-7.5 Urine Specific [place] 1.013 1.000-1.030 Urine Protein 1+ NEG Urine Glucose (UA) NEG NEG Urine Ketones NEG NEG Urine Occult Blood 3+ NEG Urine Nitrite NEG NEG Urine Bilirubin NEG NEG Urine Urobilinogen NEG NEG Urine Leukocyte Esterase LARGE NEG Urine WBC (Auto) >30 0-5 /hpf Urine RBC (Auto) >30 0-4 /hpf Urine Hyaline Casts (Auto) 1-5 0-5 /lpf Urine Epithelial Cells (Auto) 0-5 0-5 /lpf Urine Bacteria (Auto) 4+ NEG Venous Blood pH 7.38 7.36-7.41 Venous Blood Partial Pressure CO2 47 38.0-50.0 mmHg Venous Blood Partial Pressure O2 21 mmHg Venous Blood HCO3 27 mmol/L Venous Blood Oxygen Saturation < 60.0 % Venous Blood Base Excess 1.6 mEq/L Microbiology Results 12/19/17 Urine Culture, Received Pending Diagnostic Radiology CHEST ONE VIEW PORTABLE CLINICAL HISTORY: Acute change in mental status. Lethargy, bradycardia. COMPARISON STUDY: 11/10/2017 FINDINGS: The heart remains enlarged. There is no failure. There are improving bibasal airspace opacities. Trace pleural effusions cannot be excluded.[ IMPRESSION: Persistent cardiomegaly. Improving bibasal airspace opacities. CT HEAD WITHOUT CONTRAST (CT) CLINICAL HISTORY: Acute change in mental status COMPARISON STUDY: 07/09/2017 TECHNIQUE: Axial CT of the brain is performed from the vertex to the skull base. IV contrast was not administered for this examination. A dose lowering technique was utilized adhering to the principles of ALARA. CT DOSE: 537.48 mGy.cm FINDINGS: No intra or extra-axial mass lesions are visualized. There is no CT evidence of acute cortical infarction. There is no evidence of midline shift. There is no acute hemorrhage. No calvarial fractures are visualized. There are moderate white matter hypodensities likely on a small vessel basis. There is scattered old lacunar infarcts. There is no evidence of pathologic ventricular dilatation. There is fluid within the sphenoid sinus. IMPRESSION: 1. Sphenoid sinus air-fluid level. 2. Moderate white matter disease, likely a small vessel ischemic basis EKG HR 50 Sinus bradycardia with 1st degree A-V block Possible Inferior infarct (cited on or before 10-NOV-2017) Abnormal ECG When compared with ECG of 11-NOV-2017 07:06, Sinus rhythm has replaced Atrial fibrillation Vent. rate has decreased BY 29 BPM Impression Assessment and Plan This is a 72 yo f with a h/o DMII, chronic CHF, A fibb on coumadin, COPD, CKD IV followed by nephrology ([place]) presenting to us with metabolic encephalopathy secondary to hypoglycemia, UTI and electrolyte imbalances Metabolic Encephalopathy secondary to hypoglycemia, infection and electrolyte imbalances (hyponatremia) - hemodynamically stable, med surg admission - patient receiving D5W in ED, BSG AC/HS, unsure of how labile the patient's BSG is so will hold her nighttime dose of lantus and add relaxed insulin sliding scale coverage, will adjust accordingly; plan for restart of lantus tomorrow am - Transition to NSS @ 50cc/h BSG allowing once the D5W completed - Repeat BMP in am - Rocephin daily - blood culture and UCx pending however with + symptoms most likely UTI; afebrile - CBC in am DEMETRA on CKD IV - possibly secondary to dehydration - Will repeat in the am - as long as U/O maintained and improving cr will defer nephrology consult to day team - continue KCL PO and Na Bicarb 650 mg bid DMII - Lantus and sliding scale as above - DM educator consult HTN/ HLD/ CAD - ASA 81 mg and plavix 75 mg daily cont'd - cont'd Metoprolol tartrate 50 mg bid - continue Atorvastatin 40 mg daily Chronic A fibb currently rhythm controlled on coumadin - continue Amiodarone 200 mg daily - subtherapeutic on current warfarin regimen - additional 5 mg of warfarin given with recheck in am Chronic diastolic CHF - With IV infusions will monitor I&O and Daily weights - no indication for CVS consult or echo at this time - continue Bumex 1 mg bid - continue Lasix 60 mg bid COPD - controlled - Albuterol PRN - continue Dulera bid Anemia of chronic disease/ Iron def/ CKD - continue Ferrous 324 mg daily - Better than BL which is approx 9-9.5 Depression/ Anxiety - continue xanax 0.25 mg bid prn Peripheral neuropathy/ Chronic ulcerations on sacrum/ bilat LE - gabapentin 300 mg HS - wound care consult - fall risk DVT Prophylaxis - Coumadin, SCD DNR- confirmed by patient and family Attending addendum: I have physically seen this patient, have supervised the medical residents activities, and agree with the H&P unless as otherwise noted. Assessment and Plan: Metabolic encephalopathy due to urinary tract infection/associated hypoglycemia of 52/hyponatremia 130-- Full admission to medical surgical floor. Hypoglycemia compensated for by 2 amps of D50 followed by D5W in ED. Maintenance fluids will be NSS at 50 mils per hour. Serial CBC with differential, BMP and magnesium levels. Ceftriaxone 1 g IV daily, already begun in the ED. Follow urine culture and sensitivity, and blood cultures. Acute kidney injury on chronic kidney disease stage IV-- Admission creatinine 3.23 with healthy state baseline 2.23-2.88. Follows with nephrology Dr. Oliver. Repeat BMP in the a.m. CAD/hypertension/atrial fibrillation/chronic diastolic CHF-- Continue aspirin 81 mg daily, Plavix 75 mg daily, metoprolol tartrate 50 mg p.o. twice daily, amiodarone 200 mg daily. Give additional warfarin 5 mg above baseline due to subtherapeutic INR. Hold Bumex 1 mg p.o. twice daily a.m. dose tomorrow, and furosemide 60 mg p.o. twice daily a.m. dose tomorrow as well. Reassess for evening tomorrow night. Hold potassium until repeat potassium closer to 4. COPD-- Continue Dulera twice daily and albuterol as needed. Remainder of orders and notations as above. Advanced Directives Existing Advance Directive: Yes Resuscitation Status dnr VTE Prophylaxis Will order VTE Prophylaxis: Yes Social Service Consult None Apply Note Total Time: Critical Care 30 - 74 minutes Additional Copies To Sanchez Barroso M.D.
[2017-12-19 20:45] VITALS: BP 132/72; TEMP 36.9; O2SAT 99; Ht 167.6 cm; Wt 79.6 kg
[2017-12-19] MEDS ORDERED: FUROSEMIDE 20 MG TAB PO SCH (20:48)
[2017-12-19] MEDS ORDERED: PRIMIDONE 50 MG TAB PO SCH (21:00)
[2017-12-19 21:01] VITALS: BP 119/52; PULSE 89; TEMP 36.4; O2SAT 92
--- NOTE | 2017-12-19 21:55 | EMERGENCY ROOM VISIT NOTE ---
History Report prepared by Radhaibabdiel: Esthela Steel Under the Supervision of: Dr. Chepe Hutchins D.O. First contact with patient: 17:27 Chief Complaint: BRADYCARDIA Stated Complaint: LETHARGIC, BRADYCARDIA History of Present Illness The patient is a 72 year old female who presents to the Emergency Room with complaints of worsening lethargy for the past 2 days. She was brought to the ED via EMS. The patient states she felt weak and shaky earlier today. She has a history of stage 2 kidney disease. Her granddaughter reports when she got to the [place], she was lethargic and her BSG was low. The granddaughter gave her 10 units of Insulin around 1530 today, per "her doctors orders". The patient then seemed much more confused than normal and was unable to state the date or recognize family members. Pt denies headache, change in vision, fevers, chest pain, shortness of breath, nausea, vomiting, diarrhea, pain with urination , and melena. Patient is a DNR/DNI. 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 A total of 10 systems reviewed and were otherwise negative. Past Medical & Surgical Medical Problems: (1) 3 ribs fx from fell, 2 recent fells in 2 days, shoulder pain (2) AMI (acute myocardial infarction) (3) Anemia (4) Chronic kidney disease (5) Chronic kidney disease, stage 4 (severe) (6) COPD (chronic obstructive pulmonary disease) (7) Diabetes (8) Hypertension (9) Hypoglycemia (10) Hyponatremia (11) Narcotic-induced nausea and vomiting (12) PNA (pneumonia) (13) Urinary tract infection Family History Diabetes mellitus FH: gallbladder disease FH: heart disease FH: lung disease FHx: cancer Hypertension Social History Smoking Status: Former Smoker Alcohol Use: none Drug Use: none Marital Status: Housing Status: lives with significant other Occupation Status: retired Current/Historical Medications Scheduled Amiodarone Hcl (Cordarone), 200 MG PO DAILY Aspirin (Aspirin Ec), 81 MG PO DAILY Atorvastatin (Lipitor), 40 MG PO HS Bumetanide (Bumex), 1 MG PO BID Clopidogrel (Plavix), 75 MG PO DAILY Ferrous Gluconate (Ferrous Gluconate), 324 MG PO BID Furosemide (Lasix), 60 MG PO BID Gabapentin (Neurontin), 300 MG PO HS Insulin Aspart (Novolog), 10 UNITS SQ DAILY Insulin Glargine (Lantus Solostar), 10 UNITS SQ AMPM Metoprolol Tartrate (Lopressor) (Lopressor), 50 MG PO BID Nitroglycerin (Nitrostat), 0.4 MG UT PRN Omeprazole (Prilosec), 20 MG PO BID Potassium Ext Rel (Klor-Con), 20 MEQ PO DAILY Primidone (Mysoline), 50-100 MG PO DIRECTED Sodium Bicarbonate (Sodium Bicarbonate), 650 MG PO BID Warfarin Sod (Jantoven), 4 MG PO [id number] Warfarin Sod (Jantoven), 2 MG PO WK Scheduled PRN Acetaminophen (Tylenol), 500 MG PO DAILY PRN for Pain Albuterol Hfa (Ventolin Hfa), 2 PUFFS INH QID PRN for Shortness of Breath Alprazolam (Xanax), 0.25 MG PO BID PRN for Anxiety Mometasone Furoate-Formoterol (Dulera 100/5 Mcg), 2 PUFF INH BID PRN for SOB/ Wheezing Allergies Coded Allergies: No Known Allergies (Verified , 09/15/17) Physical Exam Vital Signs Date Time Temp Pulse Resp B/P (MAP) Pulse Ox O2 Delivery O2 Flow Rate FiO2 12/19/17 19:46 44 20 132/51 98 Room Air 12/19/17 19:22 42 19 120/53 99 Room Air 12/19/17 18:33 42 16 129/42 98 Room Air 12/19/17 18:09 44 16 137/44 99 Room Air 12/19/17 17:50 45 12/19/17 17:35 36.8 46 18 107/66 98 Room Air 12/19/17 17:32 97 Room Air Physical Exam GENERAL: Laying in bed, alert, disheveled and ill-appearing, well nourished, no distress, non-toxic EYE EXAM: normal conjunctiva. PERRL and EOM's intact. OROPHARYNX: no exudate, no erythema, lips, buccal mucosa, and tongue normal and mucous membranes are dry NECK: supple, no nuchal rigidity, no adenopathy, non-tender LUNGS: Lung sounds coarse at bilateral bases. Normal chest wall mechanics HEART: Positive systolic ejection murmur, S1 normal and S2 normal ABDOMEN: abdomen soft, non-tender, normo-active bowel sounds, no masses, no rebound or guarding. BACK: Back is symmetrical on inspection and there is no deformity, no midline tenderness, no CVA tenderness. SKIN: no rashes and no bruising UPPER EXTREMITIES: upper extremities are grossly normal. LOWER EXTREMITIES: No pitting edema. NEURO EXAM: Patient is awake but extremely drowsy, oriented to place, not year or month, cranial nerves II-XII intact, no weakness of the upper or lower extremities. Medical Decision & Procedures ER Provider Diagnostic Interpretation: Radiology results as stated below per my review and the radiologist's interpretation: CHEST ONE VIEW PORTABLE CLINICAL HISTORY: Acute change in mental status. Lethargy, bradycardia. COMPARISON STUDY: 11/10/2017 FINDINGS: The heart remains enlarged. There is no failure. There are improving bibasal airspace opacities. Trace pleural effusions cannot be excluded.[ IMPRESSION: Persistent cardiomegaly. Improving bibasal airspace opacities. Electronically signed by: Elieser Cha M.D. 12/19/2017 6:[address] HEAD WITHOUT CONTRAST (CT) CLINICAL HISTORY: Acute change in mental status COMPARISON STUDY: 07/09/2017 TECHNIQUE: Axial CT of the brain is performed from the vertex to the skull base. IV contrast was not administered for this examination. A dose lowering technique was utilized adhering to the principles of ALARA. CT DOSE: 537.48 mGy.cm FINDINGS: No intra or extra-axial mass lesions are visualized. There is no CT evidence of acute cortical infarction. There is no evidence of midline shift. There is no acute hemorrhage. No calvarial fractures are visualized. There are moderate white matter hypodensities likely on a small vessel basis. There is scattered old lacunar infarcts. There is no evidence of pathologic ventricular dilatation. There is fluid within the sphenoid sinus. IMPRESSION: 1. Sphenoid sinus air-fluid level. 2. Moderate white matter disease, likely a small vessel ischemic basis Electronically signed by: Elieser Cha M.D. 12/19/2017 6:37 PM Laboratory Results 12/19/17 17:40 Red Blood Count 3.76, Mean Corpuscular Volume 81.4, Mean Corpuscular Hemoglobin 25.8, Mean Corpuscular Hemoglobin Concent 31.7, Mean Platelet Volume 10.2, Neutrophils (%) (Auto) 85.4, Lymphocytes (%) (Auto) 4.0, Monocytes (%) (Auto) 10.0, Eosinophils (%) (Auto) 0.2, Basophils (%) (Auto) 0.1, Neutrophils # (Auto ) 14.40, Lymphocytes # (Auto) 0.68, Monocytes # (Auto) 1.68, Eosinophils # (Auto ) 0.03, Basophils # (Auto) 0.02 12/19/17 17:40 Test 12/19/17 17:40 12/19/17 18:05 12/19/17 19:14 White Blood Count 16.86 K/uL (4.8-10.8) Red Blood Count 3.76 M/uL (4.2-5.4) Hemoglobin 9.7 g/dL (12.0-16.0) Hematocrit 30.6 % (37-47) Mean Corpuscular Volume 81.4 fL (80-100) Mean Corpuscular Hemoglobin 25.8 pg (25-34) Mean Corpuscular Hemoglobin Concent 31.7 g/dl (32-36) Platelet Count 387 K/uL (130-400) Mean Platelet Volume 10.2 fL (7.4-10.4) Neutrophils (%) (Auto) 85.4 % Lymphocytes (%) (Auto) 4.0 % Monocytes (%) (Auto) 10.0 % Eosinophils (%) (Auto) 0.2 % Basophils (%) (Auto) 0.1 % Neutrophils # (Auto) 14.40 K/uL (1.4-6.5) Lymphocytes # (Auto) 0.68 K/uL (1.2-3.4) Monocytes # (Auto) 1.68 K/uL (0.11-0.59) Eosinophils # (Auto) 0.03 K/uL (0-0.5) Basophils # (Auto) 0.02 K/uL (0-0.2) RDW Standard Deviation 53.8 fL (36.4-46.3) RDW Coefficient of Variation 18.0 % (11.5-14.5) Immature Granulocyte % (Auto) 0.3 % Immature Granulocyte # (Auto) 0.05 K/uL (0.00-0.02) Prothrombin Time 15.8 SECONDS (9.0-12.0) Prothromb Time International Ratio 1.5 (0.9-1.1) Activated Partial Thromboplast Time 33.2 SECONDS (21.0-31.0) Partial Thromboplastin Ratio 1.3 Anion Gap 9.0 mmol/L (3-11) Est Creatinine Clear Calc Drug Dose 16.5 ml/min Estimated GFR () 15.7 Estimated GFR (Non- 13.5 BUN/Creatinine Ratio 17.2 (10-20) Calcium Level 8.8 mg/dl (8.5-10.1) Total Bilirubin 0.5 mg/dl (0.2-1) Direct Bilirubin 0.2 mg/dl (0-0.2) Aspartate Amino Transf (AST/SGOT) 60 U/L (15-37) Alanine Aminotransferase (ALT/SGPT) 50 U/L (12-78) Alkaline Phosphatase 189 U/L (45-117) Troponin I 0.021 ng/ml (0-0.045) Total Protein 7.4 gm/dl (6.4-8.2) Albumin 2.6 gm/dl (3.4-5.0) Urine Color YELLOW Urine Appearance TURBID (CLEAR) Urine pH 5.5 (4.5-7.5) Urine Specific [place] 1.013 (1.000-1.030) Urine Protein 1+ (NEG) Urine Glucose (UA) NEG (NEG) Urine Ketones NEG (NEG) Urine Occult Blood 3+ (NEG) Urine Nitrite NEG (NEG) Urine Bilirubin NEG (NEG) Urine Urobilinogen NEG (NEG) Urine Leukocyte Esterase LARGE (NEG) Urine WBC (Auto) >30 /hpf (0-5) Urine RBC (Auto) >30 /hpf (0-4) Urine Hyaline Casts (Auto) 1-5 /lpf (0-5) Urine Epithelial Cells (Auto) 0-5 /lpf (0-5) Urine Bacteria (Auto) 4+ (NEG) Venous Blood pH 7.38 (7.36-7.41) Venous Blood Partial Pressure CO2 47 mmHg (38.0-50.0) Venous Blood Partial Pressure O2 21 mmHg Venous Blood HCO3 27 mmol/L Venous Blood Oxygen Saturation < 60.0 % Venous Blood Base Excess 1.6 mEq/L Laboratory results per my review. Medications Administered Medications (Trade) Dose Ordered Sig/Dajuan Route Start Time Stop Time Status Last Admin Dose Admin Sodium Chloride 500 ml @ 999 mls/hr Q31M STAT IV 12/19/17 17:33 12/19/17 18:03 DC 12/19/17 17:33 999 MLS/HR Dextrose (Dextrose 50% 50ML Syringe) 50 ml STK-MED ONCE .ROUTE 12/19/17 17:35 12/19/17 17:36 DC 12/19/17 17:35 50 ML Dextrose 1,000 ml @ 100 mls/hr Q10H ONCE IV 12/19/17 18:30 12/20/17 04:29 12/19/17 18:39 100 MLS/HR Ceftriaxone Sodium (Rocephin Inj) 1 gm NOW STAT IV 12/19/17 18:48 12/19/17 18:49 DC 12/19/17 19:10 1 GM ECG Per My Interpretation Indication: bradycardia Rate (beats per minute): 45 Rhythm: sinus bradycardia Findings: 1st degree AV block, Q waves (Inferior), other (normal axis, no PVC) ED Course ED COURSE: Vital signs were reviewed and showed the patient is bradycardic. The patients medical record was reviewed The above diagnostic studies were performed and reviewed. ED treatments and interventions as stated above. 1727: The patient was evaluated in room B1. A complete history and physical examination was performed. 1733: NSS 500 ml @ 999 mls/hr IV. 1735: Dextrose 50% 50 ml IV. 1758: Nursing informed me the patients blood sugar is now 160. 1830: Carbohydrates 15-30 grams PO, Glucagon 1 mg IM, Dextrose 50% 25-50 ml IV, Glucose 40% gel 4-8 tablets PO, Dextrose 1000 ml @ 100 mls/hr IV, Dextrose 50% 50 ml IV. 1848: Rocephin 1 gm IV. 1848: Nursing informed me the patients BSG is 117. 1900: Upon reevaluation, the patient is resting comfortably.I discussed my findings with the patient and she understands and agrees with the treatment plan. 191: I discussed the patients case with Dr. Srivastava, [facility]. The patient will be further evaluated. Based on the patients age, coexisting illnesses, exam and lab findings the decision to treat as an inpatient was made. The patient remained stable while under my care. The patient will be evaluated for further management. Medical Decision Differential diagnoses includes but is not limited to toxic, metabolic, infectious, traumatic, cardiac, neurologic, hematologic, psychiatric and inflammatory etiologies. Patient is a 72-year-old female presents to ER for GI perfusion after an unintentional overdose of insulin while being hypoglycemic. Upon presentation patient is definitely confused. She has a leukocytosis of 17,000. BMP shows an increase in creatinine at 3.2 off of the baseline in the mid twos. Troponin was detectable but not positive. INR was at 1.5. UA does suggest UTI. I do favor this is contributing to further confusion in combination with the unintentional overdose of insulin. Patient was given D50 on the ER and placed on a D10 drip for hypoglycemia. She was also given IV antibiotics. And fluids. She is updated at bedside. He was updated as well. Patient was admitted to internal medicine for further workup of her hypoglycemia and UTI with leukocytosis. Medication Reconcilliation Current Medication List: was personally reviewed by me Blood Pressure Screening Patient's blood pressure: Low blood pressure Consults Time Called: 1914 Consulting Physician: Dr. Srivastava, [facility] Returned Call: 1918 I discussed the patients case with Dr. Srivastava, [facility]. The patient will be further evaluated. Impression Primary Impression: Confusion Additional Impressions: Hypoglycemia Insulin overdose UTI (urinary tract infection) Critical Care I have personally spent 35 minutes of critical care time in the direct management of this patient. This includes bedside care, interpretation of diagnostic studies, and testing, discussion with consultants, patient, and family members, and other required patient management activities. This 35 minutes is in excess of all separately billable procedures. Scribe Attestation The scribe's documentation has been prepared under my direction and personally reviewed by me in its entirety. I confirm that the note above accurately reflects all work, treatment, procedures, and medical decision making performed by me. Departure Information Dispostion Being Evaluated By Hospitalist Referrals Sanchez Barroso M.D. (PCP) Patient Instructions [facility] Problem Qualifiers Additional Impressions: Insulin overdose Encounter type: initial encounter Injury intent: accidental or unintentional Qualified Codes: T38.3X1A - Poisoning by insulin and oral hypoglycemic [antidiabetic] drugs, accidental (unintentional), initial encounter UTI (urinary tract infection) Urinary tract infection type: acute cystitis Hematuria presence: with hematuria Qualified Codes: N30.01 - Acute cystitis with hematuria
[2017-12-19] MEDS: INSULIN ASPART 100 UNITS/ML 3 ML PEN SC SCH (22:00)
[2017-12-19] MEDS: SODIUM CHLORIDE 0.9% 1000ML 1,000 ML IV SCH (22:32)
[2017-12-19] MEDS: ATORVASTATIN 40 MG TAB PO SCH (22:33)
[2017-12-19] MEDS: GABAPENTIN 300 MG CAP PO SCH (22:34)
[2017-12-19] MEDS: SODIUM BICARBONATE 650 MG TAB PO SCH (22:34)
[2017-12-19] MEDS: METOPROLOL TARTRATE 50 MG TAB PO SCH (22:34)
[2017-12-19] MEDS: PANTOprazole SOD 40 MG TAB PO SCH (22:34)
[2017-12-19] MEDS: FERROUS GLUCONATE 324 MG TAB PO SCH (22:35)
[2017-12-19 23:29] VITALS: BP 132/72; PULSE 60; TEMP 36.9; O2SAT 92
[2017-12-20 00:05] VITALS: O2SAT 99
[2017-12-20] MEDS: BUMETANIDE 1 MG TAB PO SCH ×3 (00:14→17:44)
[2017-12-20 05:50] LABS: BASO % 0.2 %; BASO ABS # 0.03 K/uL (0-0.2); EOS % 0.7 %; EOS ABS # 0.09 K/uL (0-0.5); HEMATOCRIT 27.3 % (37-47); HEMOGLOBIN 8.7 g/dL (12.0-16.0); IG# 0.05 K/uL (0.00-0.02); LYMPH % 5.3 %; LYMPH ABS # 0.73 K/uL (1.2-3.4); MEAN CELL VOLUME 80.5 fL (80-100); MEAN CORPUSCULAR HEMOGLOBIN 25.7 pg (25-34); MEAN CORPUSCULAR HGB CONC 31.9 g/dl (32-36); MEAN PLATELET VOLUME 9.7 fL (7.4-10.4); MONO ABS # 1.11 K/uL (0.11-0.59); NEUT % 85.4 %; NEUT ABS # 11.83 K/uL (1.4-6.5); PLATELET COUNT 309 K/uL (130-400); RED CELL DISTRIBUTION WIDTH CV 17.6 % (11.5-14.5); RED CELL DISTRIBUTION WIDTH SD 51.6 fL (36.4-46.3); WHITE BLOOD COUNT 13.84 K/uL (4.8-10.8)
[2017-12-20 05:59] LABS: INR 1.5 (0.9-1.1); PTT PATIENT 37.3 SECONDS (21.0-31.0)
[2017-12-20 06:27] LABS: CALCIUM 8.5 mg/dl (8.5-10.1); CREATININE 3.13 mg/dl (0.60-1.20); POTASSIUM 4.6 mmol/L (3.5-5.1)
[2017-12-20 07:20] VITALS: BP 130/71; PULSE 57; TEMP 37.1; O2SAT 94
[2017-12-20] MEDS: DULERA~ORDER AWAITING ACTION SCH ×3 (08:00→17:44)
[2017-12-20] MEDS: POTASSIUM CHLORIDE 20 MEQ TABCR PO SCH ×2 (08:15→21:24)
[2017-12-20] MEDS: FERROUS GLUCONATE 324 MG TAB PO SCH ×2 (08:15→21:25)
[2017-12-20] MEDS: AMIODARONE 200 MG TAB PO SCH (08:15)
[2017-12-20] MEDS: CLOPIDOGREL BISULFATE 75 MG TAB PO SCH (08:15)
[2017-12-20] MEDS: ASPIRIN 81 MG ECTAB PO SCH (08:15)
[2017-12-20] MEDS: PANTOprazole SOD 40 MG TAB PO SCH ×2 (08:15→21:25)
[2017-12-20] MEDS: SODIUM BICARBONATE 650 MG TAB PO SCH ×2 (08:16→21:24)
[2017-12-20] MEDS: INSULIN ASPART 100 UNITS/ML 3 ML PEN SC SCH ×4 (08:16→21:30)
[2017-12-20] MEDS: METOPROLOL TARTRATE 50 MG TAB PO SCH ×2 (08:16→21:21)
[2017-12-20] MEDS: ACETAMINOPHEN 325 MG TAB PO PRN ×2 (08:18→23:06)
[2017-12-20] MEDS: INSULIN GLARGINE SOLOSTAR 100 UNITS/ML 3 ML PEN SC SCH ×2 (08:19→21:30)
--- NOTE | 2017-12-20 11:06 | PROGRESS NOTE ---
DATE: 12/20/2017 HISTORY OF PRESENT ILLNESS: Mrs. Chappell is a 72-year-old white female with a history of Chronic Diastolic CHF, CAD, Type 2 Diabetes Mellitus with Diabetic Neuropathy and Nephropathy, COPD, Chronic Kidney Disease, Chronic Anemia, GERD, PAF, and Ambulatory Dysfunction requiring electric wheelchair who presented acutely to [facility] on 12/19/2017 with Altered Mental Status, Marked Hypoglycemia, and Leukocytosis with evidence of UTI. The patient was empirically started on Ceftriaxone 1 gram IV q. 24 hours, and she was given D50 initially in order to correct her hypoglycemia. The patient is currently being seen in room 461 - 2, and she offers no complaints at the present time. She denies any fevers, chills, headache, or confusion. Her appetite is good. She states "I feel so much better than I did yesterday." She does admit to some abdominal bloating, but she denies any back or flank pain. So far her urine culture has grown out a gram-negative bacilli, identification of organism and sensitivity is pending -- most likely E. coli. The patient offers no other complaints. MEDICATIONS: 1. Ceftriaxone 1 gram IV q. 24 hours. 2. Coumadin for goal INR of 2.0 to 3.0. 3. Amiodarone 200 mg daily. 4. Aspirin 81 mg daily. 5. Plavix 75 mg daily. 6. KCl 20 mEq daily. 7. Lantus insulin 10 units subcutaneous injection b.i.d. 8. Lipitor 40 mg at bedtime. 9. Bumex 1 mg b.i.d. 10. Gabapentin 300 mg at bedtime. 11. NovoLog sliding scale insulin. 12. Ferrous gluconate 325 mg b.i.d. 13. Lopressor 50 mg b.i.d. 14. Sodium bicarbonate 650 mg b.i.d. 15. Protonix 40 mg p.o. b.i.d. 16. Tylenol p.r.n. 17. Milk of magnesia p.r.n. 18. Maalox Max p.r.n. 19. MiraLax 17 grams daily as needed for constipation. 20. Zofran 4 mg IV q. 6 hours p.r.n. 21. Albuterol inhaler 2 puffs p.o. q.i.d. p.r.n. 22. Xanax 0.25 mg b.i.d. p.r.n. 23. Sublingual nitroglycerin as needed. 24. Normal saline solution at 50 mL per hour. ALLERGIES: NKDA. PHYSICAL EXAMINATION: VITAL SIGNS: Temperature is 37.1 degrees Celsius, pulse is 52 and regular, respiratory rate is 14 and unlabored, blood pressure is 130/71, SPO2 is 94% on room air. GENERAL: Chronically ill-appearing white female, in no acute distress. HEENT: Head is atraumatic, normocephalic. EOMs intact. Sclerae are anicteric. Face is symmetric. No perioral cyanosis. Mucous membranes moist. No perioral cyanosis. NECK: Without adenopathy or JVD. Carotid upstrokes +2 bilaterally without bruits. JVP is at the level of the clavicle sitting upright. CHEST AND LUNGS: Clear to auscultation throughout lung andrade. No wheezes, rales or rhonchi. CARDIOVASCULAR: S1 and S2 are regular, bradycardic, without obvious murmur, gallop or rub. ABDOMEN: Bowel sounds are present. No masses, organomegaly or tenderness. Abdomen does not appear to be distended. EXTREMITIES: No clubbing or cyanosis. Dressing is present on bilateral heels and legs and also on sacral decubitus ulcer. No surrounding erythema. NEUROLOGIC: The patient is awake, alert, and interactive. Answers questions appropriately. Speech is clear. Normal movement in bilateral upper extremities. Follows commands. LABORATORIES: White cell count is 13.84. Hemoglobin 8.7 g/dl, hematocrit 27.3%, platelet count is 309,000. INR is subtherapeutic at 1.5. Sodium is 130 mmol/L, potassium 4.6 mmol/L. BUN 55 mg/dL, creatinine 3.13 mg/dL. Random glucose is 105 mg/dL. Troponin I level 0.021 ng/mL. Total protein level 7.4 with an albumin level of 2.6 g/dL. Urinalysis shows +3 occult blood, +4 urine bacteria, urine leukocyte esterase, urine WBCs and urine RBCs. Urine culture has grown > 100,000 colonies of a gram negative bacilli. ASSESSMENT: 1. Altered Mental Status -- likely secondary to hypoglycemia, hyponatremia, and UTI. 2. Acute UTI, likely E. coli. 3. Leukocytosis, secondary to problem #2. 4. Type 2 Diabetes Mellitus -- continue Lantus insulin 10 units subcutaneous injection b.i.d. along with sliding scale insulin. 5. CAD -- quiescent. 6. Chronic Diastolic CHF -- compensated. 7. Paroxysmal Atrial Fibrillation -- on Amiodarone and Coumadin. 8. Chronic Kidney Disease -- creatinine has improved slightly since yesterday. 10. Sacral decubitus ulcer, bilateral leg and heel wounds (already followed by the wound care clinic). 11. Diagnoses mentioned above. PLAN: 1. The patient appears to be improving. Her confusion has resolved, white blood cell count is coming down, and she is feeling well. 2. Continue IV Ceftriaxone. 3. Continue working with type 2 diabetes mellitus and appropriate insulin dosage (patient received 10 units of unnecessary insulin before presenting with hypoglycemia). 4. Hypoglycemia has been corrected. 5. Continue to monitor electrolytes and renal function. 6. The patient remains hyponatremic, but this appears to be somewhat of a chronic issue. 7. We will continue to follow along while hospitalized. 8. Patient is feeling significantly better today -- will discuss possibly discharging patient to home if Dr. Conrad agrees. B[facility] DAVID HOSPITALArianna
[2017-12-20 14:28] VITALS: BP 115/68; PULSE 52; TEMP 36.6; O2SAT 96
--- NOTE | 2017-12-20 15:05 | Progress Note ---
Progress Note Date of Service December 20, 2017. Progress Note PA Physician Supervision Note: I interviewed and examined the patient. Discussed with Neptali Mustafa PAC and agree with findings and plan as documented in the note. Any exceptions or clarifications are listed here: None Patient is a clearing of her mental status or encephalopathy was likely based upon metabolic encephalopathy from urinary tract infection present on admission which is currently growing gram-negative is without sensitivity or speech is identified. And also that her family gave her additional insulin which she was hypoglycemic on presentation likely representing toxic encephalopathy from medication. We will continue to monitor insulin first toxic effects continuing antibiotics and supportive care Vital signs are stable physical exam is unremarkable Maintain antibiotic treatment until sensitivities return Documented By: Joe Conrad
[2017-12-20] MEDS ORDERED: WARFARIN SOD 2 MG TAB PO SCH (16:00)
[2017-12-20] MEDS ORDERED: WARFARIN SOD 4 MG TAB PO SCH (16:00)
[2017-12-20] MEDS: SODIUM CHLORIDE 0.9% 1000ML 1,000 ML IV SCH (17:46)
[2017-12-20] MEDS ORDERED: CEFTRIAXONE SOD INJ 1 GM in DEXTROSE 5% ADD-VANTAGE 50ML 50 ML IV SCH (19:00)
[2017-12-20] MEDS: GABAPENTIN 300 MG CAP PO SCH (21:25)
[2017-12-20] MEDS: ATORVASTATIN 40 MG TAB PO SCH (21:26)
[2017-12-20 23:36] VITALS: BP 142/61; PULSE 65; TEMP 36.8; O2SAT 95
[2017-12-21 07:03] VITALS: BP 134/71; PULSE 54; TEMP 36.8; O2SAT 95
[2017-12-21 07:19] LABS: INR 1.9 (0.9-1.1)
[2017-12-21] MEDS: AMIODARONE 200 MG TAB PO SCH (08:50)
[2017-12-21] MEDS: PANTOprazole SOD 40 MG TAB PO SCH (08:50)
[2017-12-21] MEDS: BUMETANIDE 1 MG TAB PO SCH (08:50)
[2017-12-21] MEDS: FERROUS GLUCONATE 324 MG TAB PO SCH (08:50)
[2017-12-21] MEDS: CLOPIDOGREL BISULFATE 75 MG TAB PO SCH (08:50)
[2017-12-21] MEDS: POTASSIUM CHLORIDE 20 MEQ TABCR PO SCH (08:50)
[2017-12-21] MEDS: METOPROLOL TARTRATE 50 MG TAB PO SCH (08:50)
[2017-12-21] MEDS: ASPIRIN 81 MG ECTAB PO SCH (08:50)
[2017-12-21] MEDS: SODIUM BICARBONATE 650 MG TAB PO SCH (08:51)
[2017-12-21] MEDS: INSULIN ASPART 100 UNITS/ML 3 ML PEN SC SCH ×2 (08:51→11:58)
[2017-12-21] MEDS: DULERA~ORDER AWAITING ACTION SCH ×2 (08:51)
[2017-12-21] MEDS: INSULIN GLARGINE SOLOSTAR 100 UNITS/ML 3 ML PEN SC SCH (08:56)
[2017-12-21] MEDS ORDERED: NURSING VERBAL MED ORDER ONE (12:45)
[2017-12-21] MEDS ORDERED: NITR100C43 PO (14:36)
--- NOTE | 2017-12-21 14:38 | Discharge Instructions ---
Discharge Instructions Date of Service December 21, 2017. Admission Reason for Admission: Hypoglycemia,Hyponatremia,Urinary Tract Infection Discharge Discharge Diagnosis / Problem: Urinary tract infection, hypoglycemia Discharge Goals Goal(s): Decrease discomfort, Improve function Activity Recommendations Activity Limitations: resume your previous activity . Instructions / Follow-Up Instructions / Follow-Up Follow up with PCP in 1-2 weeks Complete antibiotic and start tonight first dose. You need to complete this for 3 days Current Hospital Diet Patient's current hospital diet: Diabetes Type 2 Diet, AHA Diet (Heart Healthy) Discharge Diet Recommended Diet: AHA Diet (Heart Healthy), Diabetes Type 2 Diet Pending Studies Studies pending at discharge: no Medical Emergencies . Who to Call and When: Medical Emergencies: If at any time you feel your situation is an emergency, please call 911 immediately. . Non-Emergent Contact Non-Emergency issues call your: Primary Care Provider Call Non-Emergent contact if: you have any medication questions . . "Provider Documentation" section prepared by Rojas Viera. .
[2017-12-21 15:27] VITALS: BP 134/71; PULSE 54; TEMP 36.8; O2SAT 95
[2017-12-21] MEDS ORDERED: WARFARIN SOD 4 MG TAB PO SCH (16:00)
--- NOTE | 2017-12-22 08:56 | Discharge Summary ---
Discharge Summary Date of Service December 22, 2017. Discharge Summary Admission Date: December 19, 2017 at 19:57 Discharge Date: December 21, 2017 Discharge Disposition: Home with services Principal Diagnosis: Metabolic encephalopathy from hypoglycemia and UTI Immunizations: Have You Had Influenza Vaccine: Yes Influenza Vaccine Date: May 16, 2006 History of Tetanus Vaccine?: Yes History of Pneumococcal: No History of Hepatitis B Vaccine: No Medication Reconciliation New Medications: Nitrofurantoin Macrocrystal (Nitrofurantoin) 100 Mg Cap 1 CAP PO BID for 3 Days, #6 CAP 0 Refills Continued Medications: Acetaminophen (Tylenol) 500 Mg Tab 500 MG PO DAILY PRN for Pain Albuterol Hfa (Ventolin Hfa) 200 Puffs/63956 Mcg Aers 2 PUFFS INH QID PRN for Shortness of Breath Alprazolam (Xanax) 0.25 Mg Tab 0.25 MG PO BID PRN for Anxiety Amiodarone Hcl (Cordarone) 200 Mg Tab 200 MG PO DAILY Aspirin (Aspirin Ec) 81 Mg Tab 81 MG PO DAILY Atorvastatin (Lipitor) 40 Mg Tab 40 MG PO HS Bumetanide (Bumex) 1 Mg Tab 1 MG PO BID Clopidogrel (Plavix) 75 Mg Tab 75 MG PO DAILY Ferrous Gluconate (Ferrous Gluconate) 324 Mg Tab 324 MG PO BID, TAB Furosemide (Lasix) 20 Mg Tab 60 MG PO BID 3 TABLET DOSE. MAY DROP TO TWO TABLETS (40MG) BID IF EXPERIENCING RENAL PAIN. Gabapentin (Neurontin) 300 Mg Cap 300 MG PO HS Insulin Aspart (Novolog) 100 Units/Ml Inj 10 UNITS SQ DAILY TAKE BEFORE SUPPER Insulin Glargine (Lantus Solostar) 100 Unit/Ml Inj 10 UNITS SQ AMPM Metoprolol Tartrate (Lopressor) (Lopressor) 50 Mg Tab 50 MG PO BID Mometasone Furoate-Formoterol (Dulera 100/5 Mcg) 1 Aer Aer 2 PUFF INH BID PRN for SOB/Wheezing Nitroglycerin (Nitrostat) 0.4 Mg Tab 0.4 MG UT PRN Omeprazole (Prilosec) 20 Mg Capcr 20 MG PO BID BEFORE MEALS Potassium Ext Rel (Klor-Con) 20 Meq Tabcr 20 MEQ PO DAILY Primidone (Mysoline) 50 Mg Tab 50-100 MG PO DIRECTED TAKE 1 TAB DAILY X1 WEEK THEN INCREASE TO 2 TABS DAILY. PRESCRIBED 09/28/17 Sodium Bicarbonate (Sodium Bicarbonate) 650 Mg Tab 650 MG PO BID Warfarin Sod (Jantoven) 2 Mg Tab 4 MG PO 6XWK 4MG (TWO TABLETS) EVERY THURSDAY/THURSDAY/THURSDAY/THURSDAY/THURSDAY/THURSDAY. Warfarin Sod (Jantoven) 2 Mg Tab 2 MG PO WK 2MG (ONE TABLET) EVERY THURSDAY. Discharge Exam Chronically ill-appearing white female, in no acute distress. Physical Exam HEENT: Head is atraumatic, normocephalic. EOMs intact. . Face is symmetric. Mucous membranes moist. NECK: Without adenopathy or JVD. CHEST AND LUNGS: Clear to auscultation throughout lung andrade. No wheezes, rales or rhonchi. CARDIOVASCULAR: S1 and S2 are regular, bradycardic, without obvious murmur, gallop or rub. ABDOMEN: Bowel sounds are present. No masses, organomegaly or tenderness. Abdomen does not appear to be distended. EXTREMITIES: No clubbing or cyanosis. Dressing is present on bilateral heels and legs and also on sacral decubitus ulcer. No surrounding erythema. NEUROLOGIC: The patient is awake, alert, and interactive. Answers questions appropriately. Speech is clear. Normal movement in bilateral upper extremities. Follows commands. Review of Systems: Constitutional: No fever, No chills Eyes: No eye pain ENT: No unusual epistaxis Respiratory: No cough Cardiovascular: No chest pain Abdomen: No pain Psychiatric: No depression symptoms Endocrine: + fatigue Hematologic / Lymphatic: No abnormal bleeding/bruising Integumentary: No rash, No itch Hospital Course ASSESSMENT: 1. Altered Mental Status -- likely secondary to hypoglycemia, hyponatremia, and UTI. 2. Acute UTI, from citrobacter (pansensitive) 3. Leukocytosis, secondary to problem #2. 4. Type 2 Diabetes Mellitus -- continue Lantus insulin 10 units subcutaneous injection b.i.d. along with sliding scale insulin. 5. CAD -- quiescent. 6. Chronic Diastolic CHF -- compensated. 7. Paroxysmal Atrial Fibrillation -- on Amiodarone and Coumadin. 8. Chronic Kidney Disease -- creatinine has improved slightly since yesterday. 10. Sacral decubitus ulcer, bilateral leg and heel wounds (already followed by the wound care clinic). 11. Diagnoses mentioned above. PLAN: 1. The patient appeared to improve throughout her hospital stay. Her confusion has resolved, white blood cell count is coming down, and she is feeling well. 2. Continue IV Ceftriaxone, will transition to PO nitrofurantoin 3. Continue working with type 2 diabetes mellitus and appropriate insulin dosage (patient received 10 units of unnecessary insulin before presenting with hypoglycemia). Patient resumed regular home dose with no episodes of hypoglycemia, 4. Hypoglycemia has been corrected. 5. The patient remains hyponatremic, but this appears to be somewhat of a chronic issue. 6. Patient is feeling significantly better today will discharge home. Total Time Spent: Greater than 30 minutes This includes examination of the patient, discharge planning, medication reconciliation, and communication with other providers. Discharge Instructions Please refer to the electronic Patient Visit Report (Discharge Instructions) for additional information. Follow-Up followup with PCP in 1-2 weeks Additional Copies To Sanchez Barroso M.D.
== END 2017-12-21 15:50 | disposition home health service (06) | DRG 689 ==
LOC: EDBD 17:12 → C.EDB 17:26 → C.MS4W 19:57 → ENRESERV 20:20
PROVIDERS: ADMIT Hospitalist; ATTEND Internal Medicine Sports Medicine
DX: N39.0 Urinary tract infection, site not specified (principal); G93.41 Metabolic encephalopathy; N18.4 Chronic kidney disease, stage 4 (severe); S22.49XA Multiple fractures of ribs, unspecified side, initial encounter for closed fracture; E87.1 Hypo-osmolality and hyponatremia; E11.649 Type 2 diabetes mellitus with hypoglycemia without coma; T38.3X1A Poisoning by insulin and oral hypoglycemic [antidiabetic] drugs, accidental (unintentional), initial encounter; N17.9 Acute kidney failure, unspecified; R29.6 Repeated falls; I25.2 Old myocardial infarction; J44.9 Chronic obstructive pulmonary disease, unspecified; W19.XXXA Unspecified fall, initial encounter; I50.32 Chronic diastolic (congestive) heart failure; I13.0 Hypertensive heart and chronic kidney disease with heart failure and stage 1 through stage 4 chronic kidney disease, or unspecified chronic kidney disease; Z87.891 Personal history of nicotine dependence; Z79.4 Long term (current) use of insulin; E11.21 Type 2 diabetes mellitus with diabetic nephropathy; I48.0 Paroxysmal atrial fibrillation; I48.2 Chronic atrial fibrillation; D63.1 Anemia in chronic kidney disease; F41.8 Other specified anxiety disorders; Y92.019 Unspecified place in single-family (private) house as the place of occurrence of the external cause; E11.51 Type 2 diabetes mellitus with diabetic peripheral angiopathy without gangrene; X58.XXXA Exposure to other specified factors, initial encounter; S81.801A Unspecified open wound, right lower leg, initial encounter; B96.89 Other specified bacterial agents as the cause of diseases classified elsewhere; I25.10 Atherosclerotic heart disease of native coronary artery without angina pectoris; K21.9 Gastro-esophageal reflux disease without esophagitis; L89.159 Pressure ulcer of sacral region, unspecified stage; S81.802A Unspecified open wound, left lower leg, initial encounter

== ENCOUNTER 2021-01-01 14:01 | Inpatient (IN) ==
[2021-01-01] MEDS ORDERED: dexAMETHasone**PF** 10 MG/ML VIAL IV ONE (14:32)
[2021-01-01] MEDS ORDERED: guaiFENesin 600 MG TABCR PO STA (14:32)
[2021-01-01] MEDS ORDERED: ALBUT/IPRATROP 3MG/0.5MG NEB 3 ML VIAL NEB ONE (14:32)
--- NOTE | 2021-01-01 14:57 | Emergency Department Note ---
Impression & Plan COPD exacerbation, Hyponatremia, Volume overload, CKD (chronic kidney disease) ED Provider Note NAME: LINNETTE STEPHEN AGE: 75 SEX: F ARRIVES VIA: Ambulance INFORMANT: Patient, ED PROVIDER(S): Fredi Reynoso MD CHIEF COMPLAINT: SoB PLAN: Disposition: Admit MEDICAL DECISION MAKING: The patient is a pleasant 75-year-old woman with a past medical history of CKD, COPD, diabetes, generalized weakness/and nonambulatory due to her chronic COPD uncontrolled diabetes with neuropathy, CAD and PAD and worsening CKD leading to deconditioning/debilitation who prevent presents from home where her son is her 24-hour caregiver for worsening shortness of breath, chest pain and chest tightness over the past week. She denies any fevers, nausea, vomiting, diarrhea. She has a indwelling Mcocllum catheter. On arrival the patient is chronically ill-appearing moderately dyspneic but no acute distress, afebrile, hypertensive and otherwise with stable vital signs. She has diminished breath sounds throughout with underlying wheeze and rales wit h prolonged expiratory phase. EKG without overt acute ischemia. CXR negative for overt acute cardiopulmonary process. WBC and platelets wnl. H/H similar to prior. Glucose 243. Chemistry without acidosis. Cr. 2.1 similar to prior. Sodium corrects to 127 likely 2/2 hypervolemia with serum Osm 270s and dilute urine. Electrolytes unremarkable. LFTs without significant abnormality. Troponin negative/undetectable. BNP 6500 without prior for comparison but c/w patient's volume overload. Covid-19 PCR n egative. Patient did feel somewhat improved after initial treatment with steroids and duoneb. Lasix administered. However, patient still moderately dyspneic and so agrees with plan for admission for further treatment. Case was discussed with Leobardo Laws, [facility] PAC, with Dr. Viera, [facility] hospitalist, who will evaluate the patient for admission. Triage Nursing notes reviewed and agree them. Prior medical records reviewed Vital Signs: reviewed and remarkable for HTN. Differential diagnosis: Reactive airway disease, pneumonia, pneumothorax, COPD, CHF, infections, cardiac ischemia, pulmonary embolism, musculoskeletal, gastrointestinal, as well as other pathologies. ER treatment provided: See below. Diagnostics interpreted by me: ECG: Atrial fibrillation, 81 bpm, no ectopy, no overt ST elevation or depression. Cardiac Monitoring: An order for continuous cardiac monitoring was placed and demonstrated Atrial fibrillation, 81 bpm, no ectopy. Laboratory studies: See below Imaging studies: See below Consultation(s): TIKI Whitten PAC, with TIKI Oates hospitalist HPI: The patient is a pleasant 75-year-old woman with a past medical history of CKD, COPD, diabetes, generalized weakness/and nonambulatory due to her chronic COPD uncontrolled diabetes with neuropathy, CAD and PAD and worsening CKD leading to deconditioning/debilitation who prevent presents from home where her son is her 24-hour caregiver for worsening shortness of breath, chest pain and chest tightness over the past week. She denies any fevers, nausea, vomiting, diarrhea. She has a indwelling Mccollum catheter. ROS: See above HPI for pertinent positives & negatives. A total of 10 systems reviewed and were otherwise negative. PAST MEDICAL HISTORY:See Below PAST SURGICAL HISTORY:See Below FAMILY HISTORY:See Below SOCIAL HISTORY:See Below HOME MEDICATIONS:See Below ALLERGIES:See Below VITALS:See Below PHYSICAL EXAMINATION: GENERAL: Awake, alert, chronically ill-appearing, in no distress. HENT: Normocephalic, atraumatic. Oropharynx with dry mucous membranes and otherwise unremarkable. EYES: Normal conjunctiva. Sclera non-icteric. NECK: Supple. No nuchal rigidity. FROM. No JVD. RESPIRATORY: Diminished breath sounds throughout with underlying wheeze and rales with prolonged expiratory phase. CARDIAC: Regular rate, normal rhythm. Extremities warm and well perfused. Pulses equal. ABDOMEN: Soft, nondistended. No tenderness to palpation. No rebound or guarding. No masses. RECTAL: Deferred. MUSCULOSKELETAL: Chest examination reveals no tenderness. The back is symmetrical on inspection without obvious abnormality. There is no CVA tenderness to palpation. No joint edema. LOWER EXTREMITIES: Calves are equal size bilaterally and non-tender. 1+ BLE edema. No discoloration. NEURO: No focal sensory or motor deficits noted. Chronic 2/5 strength of bilateral lower extremities. SKIN: No rash or jaundice noted. Fredi Reynoso MD Past Med/Surg History Medical History A-fib AMI (acute myocardial infarction) Anemia ARF (acute renal failure) Bronchitis Chronic kidney disease COPD (chronic obstructive pulmonary disease) Diabetes Fall in home Fracture of right distal radius Fracture of right ulnar styloid Hypertension Hypoglycemia Hyponatremia Insulin overdose Left sided chest pain Narcotic-induced nausea and vomiting PNA (pneumonia) Renal insufficiency Shortness of breath UTI (urinary tract infection) Surgical History History of cataract surgery History of esophagogastroduodenoscopy (EGD) History of lung surgery Family History Unknown Diabetes Pancreatic cancer Lung cancer Coronary heart disease Breast cancer Other Family history non-contributory Denies family history of Ovarian cancer Prostate cancer Myocardial infarction Colorectal cancer Social History Smoking Status: Former smoker Hx Alcohol Use: No Hx Substance Use: No Preferred Language: Romansh Beliefs That Will Affect Care: None marital status: Current Living Situation: Spouse and Family current occupational status: retired Feels Safe at Home: Yes Safety Concerns: Feels Safe At This Time Assistive Devices: Denture - Lower Allergies Allergies Allergy/AdvReac Type Severity Reaction Status Date / Time Latex, Natural Rubber Allergy Mild Rash Verified 01/01/21 20:46 tramadol Allergy Unknown Unverified 01/01/21 17:54 nickel AdvReac Rash Verified 01/01/21 20:47 Home Meds Home Medications Medication Instructions Recorded Confirmed acetaminophen [Tylenol Extra 500 - 1,000 mg PO Q6H PRN MDD MAX 12/25/19 01/01/21 Strength] 6 TAB/24 HOURS albuterol sulfate 2 inh INH QID PRN 01/01/21 01/01/21 levalbuterol HCl 3 mg INHALATION UD 01/01/21 01/01/21 omeprazole 20 mg PO BID 01/01/21 01/01/21 Previous Rx's Medication Instructions Recorded Wheelchair (Manual or Powered) #1 ea 12/30/19 nebulizers #1 ea 01/03/20 insulin glargine 100 unit/mL (3 10 unit SUBCUT .COMPLEX #15 ml 01/31/20 mL) subcutaneous pen blood sugar diagnostic #50 ea 03/20/20 furosemide 40 mg tablet 40 mg PO BID #60 tab 10/22/20 gabapentin 300 mg capsule 300 mg PO TID #270 cap 11/26/20 lorazepam 0.5 mg tablet 0.5 mg PO Q4H PRN #30 tab 12/24/20 promethazine 25 mg tablet 25 mg PO Q6H PRN #30 tab 12/24/20 Results & Data (ED) Vital Signs Vital Signs - 24 hr 01/01/21 14:07 01/01/21 14:10 01/01/21 14:24 Temperature 36.9 C Temperature Source Oral Pulse Rate 73 84 77 Pulse Rate [Right Finger] Pulse Rate from SpO2 Sensor 74 73 Respiratory Rate 21 20 19 Respiratory Effort / Characteristics Blood Pressure 183/90 H 183/90 H Blood Pressure Mean 121 121 Pulse Oximetry 96 95 96 Oxygen Delivery Method Room Air Room Air Sepsis Recent Fever Within 48 Hours No Sepsis New/Unexplained Change in Mental Status N/A Sepsis Action Taken by Nursing No Action Required 01/01/21 14:30 01/01/21 14:31 01/01/21 14:40 Temperature Temperature Source Pulse Rate 81 84 77 Pulse Rate [Right Finger] Pulse Rate from SpO2 Sensor 88 82 77 Respiratory Rate 18 16 20 Respiratory Effort / Characteristics Blood Pressure 167/114 H 143/98 H Blood Pressure Mean 131 113 Pulse Oximetry 95 95 96 Oxygen Delivery Method Sepsis Recent Fever Within 48 Hours Sepsis New/Unexplained Change in Mental Status Sepsis Action Taken by Nursing 01/01/21 14:45 01/01/21 14:50 01/01/21 14:55 Temperature Temperature Source Pulse Rate 74 76 Pulse Rate [Right Finger] 75 Pulse Rate from SpO2 Sensor 75 Respiratory Rate 18 21 20 Respiratory Effort / Characteristics Non-Labored Spontaneous Blood Pressure Blood Pressure Mean Pulse Oximetry 96 96 97 Oxygen Delivery Method Room Air Room Air Sepsis Recent Fever Within 48 Hours Sepsis New/Unexplained Change in Mental Status Sepsis Action Taken by Nursing 01/01/21 15:00 01/01/21 15:10 01/01/21 15:20 Temperature Temperature Source Pulse Rate 71 78 78 Pulse Rate [Right Finger] Pulse Rate from SpO2 Sensor 79 80 77 Respiratory Rate 14 14 21 Respiratory Effort / Characteristics Blood Pressure 156/75 H Blood Pressure Mean 102 Pulse Oximetry 100 100 100 Oxygen Delivery Method Sepsis Recent Fever Within 48 Hours Sepsis New/Unexplained Change in Mental Status Sepsis Action Taken by Nursing 01/01/21 15:30 01/01/21 15:40 01/01/21 15:50 Temperature Temperature Source Pulse Rate 85 84 97 H Pulse Rate [Right Finger] Pulse Rate from SpO2 Sensor 86 88 93 H Respiratory Rate 20 22 16 Respiratory Effort / Characteristics Blood Pressure 175/92 H Blood Pressure Mean 119 Pulse Oximetry 100 100 100 Oxygen Delivery Method Sepsis Recent Fever Within 48 Hours Sepsis New/Unexplained Change in Mental Status Sepsis Action Taken by Nursing 01/01/21 16:00 01/01/21 16:10 01/01/21 16:11 Temperature Temperature Source Pulse Rate 97 H 96 H 107 H Pulse Rate [Right Finger] Pulse Rate from SpO2 Sensor 100 H 107 H 102 H Respiratory Rate 21 20 16 Respiratory Effort / Characteristics Blood Pressure 142/100 H 151/75 H Blood Pressure Mean 114 100 Pulse Oximetry 100 100 100 Oxygen Delivery Method Sepsis Recent Fever Within 48 Hours Sepsis New/Unexplained Change in Mental Status Sepsis Action Taken by Nursing 01/01/21 16:20 01/01/21 16:30 01/01/21 16:40 Temperature Temperature Source Pulse Rate 92 H 105 H 110 H Pulse Rate [Right Finger] Pulse Rate from SpO2 Sensor 94 H 110 H 111 H Respiratory Rate 24 17 20 Respiratory Effort / Characteristics Blood Pressure 182/98 H Blood Pressure Mean 126 Pulse Oximetry 100 100 96 Oxygen Delivery Method Sepsis Recent Fever Within 48 Hours Sepsis New/Unexplained Change in Mental Status Sepsis Action Taken by Nursing 01/01/21 16:50 01/01/21 17:00 01/01/21 17:01 Temperature Temperature Source Pulse Rate 98 H 104 H 110 H Pulse Rate [Right Finger] Pulse Rate from SpO2 Sensor 99 H 108 H 105 H Respiratory Rate 22 20 21 Respiratory Effort / Characteristics Blood Pressure 176/100 H Blood Pressure Mean 125 Pulse Oximetry 95 88 L 93 Oxygen Delivery Method Sepsis Recent Fever Within 48 Hours Sepsis New/Unexplained Change in Mental Status Sepsis Action Taken by Nursing 01/01/21 17:10 01/01/21 17:20 01/01/21 17:30 Temperature Temperature Source Pulse Rate 114 H 112 H 104 H Pulse Rate [Right Finger] Pulse Rate from SpO2 Sensor 109 H 112 H 113 H Respiratory Rate 21 18 21 Respiratory Effort / Characteristics Blood Pressure 144/87 H Blood Pressure Mean 106 Pulse Oximetry 92 93 96 Oxygen Delivery Method Sepsis Recent Fever Within 48 Hours Sepsis New/Unexplained Change in Mental Status Sepsis Action Taken by Nursing 01/01/21 17:31 01/01/21 17:40 01/01/21 17:50 Temperature Temperature Source Pulse Rate 102 H 107 H 110 H Pulse Rate [Right Finger] Pulse Rate from SpO2 Sensor 112 H 108 H 107 H Respiratory Rate 20 25 H 25 H Respiratory Effort / Characteristics Blood Pressure 188/134 H Blood Pressure Mean 152 Pulse Oximetry 94 94 92 Oxygen Delivery Method Sepsis Recent Fever Within 48 Hours Sepsis New/Unexplained Change in Mental Status Sepsis Action Taken by Nursing Laboratory Data Attestation: I reviewed the patient's lab results. Result diagrams: 01/02/21 05:56 01/02/21 05:56 Lab Results 01/01/21 01/01/21 01/01/21 Range/Units 14:32 14:32 14:32 WBC 9.46 (4.8-10.8) K/uL RBC 3.83 L (4.2-5.4) M/uL Hgb 10.1 L (12.0-16.0) g/dL Hct 31.4 L (37-47) % MCV 82.0 (80-100) fL MCH 26.4 (25-34) pg MCHC 32.2 (32-36) g/dL RDW Std Deviation 44.5 (36.4-46.3) fL RDW Coeff of Michael 14.9 H (11.5-14.5) % Plt Count 286 (130-400) K/uL MPV 9.9 (7.4-10.4) fL Immature Gran % (Auto) 0.2 % Neut % (Auto) 83.8 % Lymph % (Auto) 8.9 % Franklin % (Auto) 4.9 % Eos % (Auto) 1.8 % Baso % (Auto) 0.4 % Neut # (Auto) 7.93 H (1.4-6.5) K/uL Lymph # (Auto) 0.84 L (1.2-3.4) K/uL Franklin # (Auto) 0.46 (0.11-0.59) K/uL Eos # (Auto) 0.17 (0-0.5) K/uL Baso # (Auto) 0.04 (0-0.2) K/uL Immature Gran # (Auto) 0.02 (0.00-0.02) K/uL PT 9.8 (9.0-12.0) Seconds INR 1.0 (0.9-1.1) APTT 30.8 (21.0-31.0) Seconds PTT Ratio 1.2 Sodium 124 L (136-145) mmol/L Potassium 4.2 (3.5-5.1) mmol/L Chloride 90 L (98-107) mmol/L Carbon Dioxide 25 (21-32) mmol/L Anion Gap 9.0 (3-11) BUN 30 H (7-18) mg/dl Creatinine 2.14 H (0.6-1.2) mg/dl Est Cr Clr Drug Dosing 24.8 ml/min Est GFR ( Amer) 25.3 ml/min Est GFR (Non-Af Amer) 21.8 ml/min BUN/Creatinine Ratio 13.9 (10-20) Glucose 243 H (70-99) mg/dl Osmolality (280-300) mOsm/kg Calcium 8.6 (8.5-10.1) mg/dl Phosphorus 3.9 (2.5-4.9) mg/dl Magnesium 2.6 H (1.8-2.4) mg/dl Total Bilirubin 0.3 (0.2-1) mg/dl Direct Bilirubin 0.1 (0-0.2) mg/dl AST 15 (15-37) U/L ALT 20 (12-78) U/L Alkaline Phosphatase 136 H (45-117) U/L Total Creatine Kinase 95 (26-192) U/L Troponin I < 0.015 (0-0.045) ng/ml NT-Pro-B Natriuret Pep (0-1800) pg/ml Total Protein 7.5 (6.4-8.2) gm/dl Albumin 3.3 L (3.4-5.0) gm/dl Globulin 4.2 H (2.5-4.0) gm/dl Albumin/Globulin Ratio 0.8 L (0.9-2) Lipase 156 (73-393) U/L Urine Color Urine Appearance (Clear) Urine pH (4.5-7.5) Ur Specific [place] (1.000-1.030) Urine Protein (Negative) Urine Glucose (UA) (Negative) Urine Ketones (Negative) Urine Blood (Negative) Urine Nitrite (Negative) Urine Bilirubin (Negative) Urine Urobilinogen (Negative) Ur Leukocyte Esterase (Negative) Urine WBC (Auto) (0-5) /hpf Urine RBC (Auto) (0-4) /hpf U Hyaline Cast (Auto) (0-5) /lpf U Epithel Cells (Auto) (0-5) /lpf Urine Bacteria (Auto) (Negative) Urine Osmolality (500-800) mOsm/kg Ur Random Sodium mmol/L COVID-19 Eval Order SARS-CoV-2 (PCR) (Negative) 01/01/21 01/01/21 01/01/21 Range/Units 14:35 14:50 14:50 WBC (4.8-10.8) K/uL RBC (4.2-5.4) M/uL Hgb (12.0-16.0) g/dL Hct (37-47) % MCV (80-100) fL MCH (25-34) pg MCHC (32-36) g/dL RDW Std Deviation (36.4-46.3) fL RDW Coeff of Michael (11.5-14.5) % Plt Count (130-400) K/uL MPV (7.4-10.4) fL Immature Gran % (Auto) % Neut % (Auto) % Lymph % (Auto) % Franklin % (Auto) % Eos % (Auto) % Baso % (Auto) % Neut # (Auto) (1.4-6.5) K/uL Lymph # (Auto) (1.2-3.4) K/uL Franklin # (Auto) (0.11-0.59) K/uL Eos # (Auto) (0-0.5) K/uL Baso # (Auto) (0-0.2) K/uL Immature Gran # (Auto) (0.00-0.02) K/uL PT (9.0-12.0) Seconds INR (0.9-1.1) APTT (21.0-31.0) Seconds PTT Ratio Sodium (136-145) mmol/L Potassium (3.5-5.1) mmol/L Chloride (98-107) mmol/L Carbon Dioxide (21-32) mmol/L Anion Gap (3-11) BUN (7-18) mg/dl Creatinine (0.6-1.2) mg/dl Est Cr Clr Drug Dosing ml/min Est GFR ( Amer) ml/min Est GFR (Non-Af Amer) ml/min BUN/Creatinine Ratio (10-20) Glucose (70-99) mg/dl Osmolality (280-300) mOsm/kg Calcium (8.5-10.1) mg/dl Phosphorus (2.5-4.9) mg/dl Magnesium (1.8-2.4) mg/dl Total Bilirubin (0.2-1) mg/dl Direct Bilirubin (0-0.2) mg/dl AST (15-37) U/L ALT (12-78) U/L Alkaline Phosphatase (45-117) U/L Total Creatine Kinase (26-192) U/L Troponin I (0-0.045) ng/ml NT-Pro-B Natriuret Pep 6448 H (0-1800) pg/ml Total Protein (6.4-8.2) gm/dl Albumin (3.4-5.0) gm/dl Globulin (2.5-4.0) gm/dl Albumin/Globulin Ratio (0.9-2) Lipase (73-393) U/L Urine Color Urine Appearance (Clear) Urine pH (4.5-7.5) Ur Specific [place] (1.000-1.030) Urine Protein (Negative) Urine Glucose (UA) (Negative) Urine Ketones (Negative) Urine Blood (Negative) Urine Nitrite (Negative) Urine Bilirubin (Negative) Urine Urobilinogen (Negative) Ur Leukocyte Esterase (Negative) Urine WBC (Auto) (0-5) /hpf Urine RBC (Auto) (0-4) /hpf U Hyaline Cast (Auto) (0-5) /lpf U Epithel Cells (Auto) (0-5) /lpf Urine Bacteria (Auto) (Negative) Urine Osmolality (500-800) mOsm/kg Ur Random Sodium mmol/L COVID-19 Eval Order Covid19 at [facility] SARS-CoV-2 (PCR) NEGATIVE (Negative) 01/01/21 01/01/21 01/01/21 Range/Units 16:30 16:30 16:30 WBC (4.8-10.8) K/uL RBC (4.2-5.4) M/uL Hgb (12.0-16.0) g/dL Hct (37-47) % MCV (80-100) fL MCH (25-34) pg MCHC (32-36) g/dL RDW Std Deviation (36.4-46.3) fL RDW Coeff of Michael (11.5-14.5) % Plt Count (130-400) K/uL MPV (7.4-10.4) fL Immature Gran % (Auto) % Neut % (Auto) % Lymph % (Auto) % Franklin % (Auto) % Eos % (Auto) % Baso % (Auto) % Neut # (Auto) (1.4-6.5) K/uL Lymph # (Auto) (1.2-3.4) K/uL Franklin # (Auto) (0.11-0.59) K/uL Eos # (Auto) (0-0.5) K/uL Baso # (Auto) (0-0.2) K/uL Immature Gran # (Auto) (0.00-0.02) K/uL PT (9.0-12.0) Seconds INR (0.9-1.1) APTT (21.0-31.0) Seconds PTT Ratio Sodium (136-145) mmol/L Potassium (3.5-5.1) mmol/L Chloride (98-107) mmol/L Carbon Dioxide (21-32) mmol/L Anion Gap (3-11) BUN (7-18) mg/dl Creatinine (0.6-1.2) mg/dl Est Cr Clr Drug Dosing ml/min Est GFR ( Amer) ml/min Est GFR (Non-Af Amer) ml/min BUN/Creatinine Ratio (10-20) Glucose (70-99) mg/dl Osmolality (280-300) mOsm/kg Calcium (8.5-10.1) mg/dl Phosphorus (2.5-4.9) mg/dl Magnesium (1.8-2.4) mg/dl Total Bilirubin (0.2-1) mg/dl Direct Bilirubin (0-0.2) mg/dl AST (15-37) U/L ALT (12-78) U/L Alkaline Phosphatase (45-117) U/L Total Creatine Kinase (26-192) U/L Troponin I (0-0.045) ng/ml NT-Pro-B Natriuret Pep (0-1800) pg/ml Total Protein (6.4-8.2) gm/dl Albumin (3.4-5.0) gm/dl Globulin (2.5-4.0) gm/dl Albumin/Globulin Ratio (0.9-2) Lipase (73-393) U/L Urine Color Yellow Urine Appearance Clear (Clear) Urine pH 7.0 (4.5-7.5) Ur Specific [place] 1.008 (1.000-1.030) Urine Protein Trace H (Negative) Urine Glucose (UA) 1+ H (Negative) Urine Ketones Negative (Negative) Urine Blood 1+ H (Negative) Urine Nitrite Negative (Negative) Urine Bilirubin Negative (Negative) Urine Urobilinogen Negative (Negative) Ur Leukocyte Esterase Trace H (Negative) Urine WBC (Auto) 1-5 (0-5) /hpf Urine RBC (Auto) 0-4 (0-4) /hpf U Hyaline Cast (Auto) 0 (0-5) /lpf U Epithel Cells (Auto) 20-30 H (0-5) /lpf Urine Bacteria (Auto) Negative (Negative) Urine Osmolality 157 L (500-800) mOsm/kg Ur Random Sodium 27 mmol/L COVID-19 Eval Order SARS-CoV-2 (PCR) (Negative) 01/01/21 Range/Units 17:05 WBC (4.8-10.8) K/uL RBC (4.2-5.4) M/uL Hgb (12.0-16.0) g/dL Hct (37-47) % MCV (80-100) fL MCH (25-34) pg MCHC (32-36) g/dL RDW Std Deviation (36.4-46.3) fL RDW Coeff of Michael (11.5-14.5) % Plt Count (130-400) K/uL MPV (7.4-10.4) fL Immature Gran % (Auto) % Neut % (Auto) % Lymph % (Auto) % Franklin % (Auto) % Eos % (Auto) % Baso % (Auto) % Neut # (Auto) (1.4-6.5) K/uL Lymph # (Auto) (1.2-3.4) K/uL Franklin # (Auto) (0.11-0.59) K/uL Eos # (Auto) (0-0.5) K/uL Baso # (Auto) (0-0.2) K/uL Immature Gran # (Auto) (0.00-0.02) K/uL PT (9.0-12.0) Seconds INR (0.9-1.1) APTT (21.0-31.0) Seconds PTT Ratio Sodium (136-145) mmol/L Potassium (3.5-5.1) mmol/L Chloride (98-107) mmol/L Carbon Dioxide (21-32) mmol/L Anion Gap (3-11) BUN (7-18) mg/dl Creatinine (0.6-1.2) mg/dl Est Cr Clr Drug Dosing ml/min Est GFR ( Amer) ml/min Est GFR (Non-Af Amer) ml/min BUN/Creatinine Ratio (10-20) Glucose (70-99) mg/dl Osmolality 274 L (280-300) mOsm/kg Calcium (8.5-10.1) mg/dl Phosphorus (2.5-4.9) mg/dl Magnesium (1.8-2.4) mg/dl Total Bilirubin (0.2-1) mg/dl Direct Bilirubin (0-0.2) mg/dl AST (15-37) U/L ALT (12-78) U/L Alkaline Phosphatase (45-117) U/L Total Creatine Kinase (26-192) U/L Troponin I (0-0.045) ng/ml NT-Pro-B Natriuret Pep (0-1800) pg/ml Total Protein (6.4-8.2) gm/dl Albumin (3.4-5.0) gm/dl Globulin (2.5-4.0) gm/dl Albumin/Globulin Ratio (0.9-2) Lipase (73-393) U/L Urine Color Urine Appearance (Clear) Urine pH (4.5-7.5) Ur Specific [place] (1.000-1.030) Urine Protein (Negative) Urine Glucose (UA) (Negative) Urine Ketones (Negative) Urine Blood (Negative) Urine Nitrite (Negative) Urine Bilirubin (Negative) Urine Urobilinogen (Negative) Ur Leukocyte Esterase (Negative) Urine WBC (Auto) (0-5) /hpf Urine RBC (Auto) (0-4) /hpf U Hyaline Cast (Auto) (0-5) /lpf U Epithel Cells (Auto) (0-5) /lpf Urine Bacteria (Auto) (Negative) Urine Osmolality (500-800) mOsm/kg Ur Random Sodium mmol/L COVID-19 Eval Order SARS-CoV-2 (PCR) (Negative) Administered Medications Acetaminophen (Acetaminophen 325 Mg Tab) 650 mg PO Q4H PRN PRN Reason: pain/fever Stop: 01/31/21 17:50 Last Admin: 01/02/21 04:04 Dose: 650 mg Documented by: [id number] Albuterol (Albuterol Hfa 8 Gm Inhaler) 2 puffs INH QIDR CARA Stop: 01/31/21 20:59 Last Admin: 01/02/21 07:09 Dose: 2 puffs Documented by: [id number] Admin: 01/01/21 21:10 Dose: 2 puffs Documented by: [id number] Azithromycin (Azithromycin 250 Mg Tab) 250 mg PO QAM [facility] Stop: 01/05/21 09:01 Last Admin: 01/02/21 09:09 Dose: 250 mg Documented by: [id number] Fluticasone/Vilanterol (Fluticasone/Vilanterol 100/25mcg 14 Puffs/Inhaler) 1 puffs INH DAILY [facility] Stop: 02/01/21 08:59 Last Admin: 01/02/21 09:09 Dose: 1 puffs Documented by: [id number] Furosemide (Furosemide 40 Mg Tab) 40 mg PO [id number] [facility] Stop: 01/31/21 20:59 Last Admin: 01/02/21 09:11 Dose: 40 mg Documented by: [id number] Admin: 01/01/21 21:32 Dose: 40 mg Documented by: [id number] Gabapentin (Gabapentin 300 Mg Cap) 300 mg PO TID CARA Stop: 01/31/21 20:59 Last Admin: 01/02/21 09:09 Dose: 300 mg Documented by: [id number] Admin: 01/01/21 21:33 Dose: 300 mg Documented by: [id number] Heparin Sodium (Porcine) (Heparin Sod 5,000 Unit/0.5 Ml Vial) 5,000 units SQ Q8 CARA Stop: 01/31/21 21:59 Last Admin: 01/02/21 05:16 Dose: 5,000 units Documented by: [id number] Admin: 01/01/21 21:32 Dose: 5,000 units Documented by: [id number] Methylprednisolone 40 mg/ (Syringe) 0.64 mls @ 1.5 mls/min IV Q6H [facility] Stop: 01/31/21 20:59 Last Admin: 01/02/21 09:08 Dose: 1.5 mls/min Documented by: [id number] Admin: 01/02/21 03:59 Dose: 1.5 mls/min Documented by: [id number] Admin: 01/01/21 21:33 Dose: 1.5 mls/min Documented by: [id number] Insulin Aspart (Insulin Aspart 100 Units/Ml 3 Ml Pen) 0 units SC ACHS [facility] Stop: 01/31/21 20:59 Last Admin: 01/02/21 09:07 Dose: 9 units Documented by: [id number] Cosigned by: [id number] Admin: 01/01/21 21:20 Dose: 8 units Documented by: [id number] Cosigned by: [id number] Insulin Glargine (Insulin Glargine Solostar 100 Units/Ml 3 Ml Pen) 13 units SQ BID [facility] Stop: 01/31/21 20:59 Last Admin: 01/02/21 09:07 Dose: 13 units Documented by: [id number] Cosigned by: [id number] Insulin Human NPH (Insulin Human Nph) 25 units SC TODAY@0800 [facility] Stop: 02/01/21 07:59 Last Admin: 01/02/21 09:06 Dose: 25 units Documented by: [id number] Cosigned by: [id number] Ondansetron HCl (Ondansetron Inj 2 Mg/Ml 2 Ml Vial) 4 mg IV Q6H PRN PRN Reason: Nausea Stop: 01/31/21 17:50 Last Admin: 01/02/21 07:34 Dose: 4 mg Documented by: [id number] Pantoprazole Sodium (Pantoprazole 40 Mg Tab) 40 mg PO BID [facility] Stop: 01/31/21 20:59 Last Admin: 01/02/21 09:09 Dose: 40 mg Documented by: [id number] Admin: 01/01/21 21:33 Dose: 40 mg Documented by: [id number] Discontinued Medications Albuterol (Albut/Ipratrop 3mg/0.5mg Neb 3 Ml Vial) 12 ml NEB ONE ONE Stop: 01/01/21 14:33 Last Admin: 01/01/21 14:55 Dose: 12 ml Documented by: [id number] Azithromycin (Azithromycin 250 Mg Tab) 500 mg PO NOW ONE Stop: 01/01/21 20:11 Last Admin: 01/01/21 21:10 Dose: 500 mg Documented by: [id number] Dexamethasone Sodium Phosphate (DexamethasonePf 10 Mg/Ml Vial) 10 mg IV NOW ONE Stop: 01/01/21 14:33 Last Admin: 01/01/21 15:07 Dose: 10 mg Documented by: [id number] Furosemide (Furosemide 40 Mg/4 Ml Vial) 20 mg IV NOW STA Stop: 01/01/21 16:59 Last Admin: 01/01/21 17:24 Dose: 20 mg Documented by: [id number] Guaifenesin (Guaifenesin 600 Mg Tabcr) 600 mg PO NOW STA Stop: 01/01/21 14:33 Last Admin: 01/01/21 15:06 Dose: 600 mg Documented by: [id number] Furosemide 20 mg/ Syringe 2 mls @ 4 mls/min IV 0900 [facility]A Stop: 01/02/21 10:00 Last Admin: 01/02/21 09:12 Dose: 4 mls/min Documented by: [id number] Insulin Aspart (Insulin Aspart 100 Units/Ml 3 Ml Pen) 0 units SC 0015,[id number] [facility]A Stop: 01/02/21 04:01 Last Admin: 01/02/21 03:58 Dose: 8 units Documented by: [id number] Cosigned by: [id number] Admin: 01/02/21 00:08 Dose: 11 units Documented by: [id number] Cosigned by: [id number] Insulin Glargine (Insulin Glargine Solostar 100 Units/Ml 3 Ml Pen) 10 units SQ BID CARA Stop: 01/31/21 20:59 Last Admin: 01/01/21 21:25 Dose: 10 units Documented by: [id number] Cosigned by: [id number] Insulin Glargine (Insulin Glargine Solostar 100 Units/Ml 3 Ml Pen) 10 units SQ ONE ONE Stop: 01/02/21 00:16 Last Admin: 01/02/21 00:09 Dose: 10 units Documented by: [id number] Cosigned by: [id number] Discharge Plan Visit Data Chief Complaint: Shortness of Breath/Dyspnea Stated Complaint: SOB, CHEST PAIN ED Provider: Fredi Reynoso Discharge Problem: COPD exacerbation, Hyponatremia, Volume overload, CKD (chronic kidney disease) Patient Disposition: Admitted As Inpatient Discharge Instructions Interventions: ED Discharge Assessment Last Done: 01/01/21 19:45 Discharge Problem: Volume overload Qualifiers: Hypervolemia type: unspecified Qualified Code(s): E87.70 - Fluid overload, unspecified CKD (chronic kidney disease) Qualifiers: Chronic kidney disease stage: unspecified stage Qualified Code(s): N18.9 - Chronic kidney disease, unspecified
--- NOTE | 2021-01-01 15:06 | XRay Report ---
XR chest 1V portable CLINICAL HISTORY: Atypical chest pain COMPARISON STUDY: 12/25/2019 FINDINGS: The cardiac and mediastinal contours remain stable. There is no failure. There is no acute parenchymal consolidation. There are no significant pleural effusions. There is a stable left lateral basilar opacity likely representing a fat pad. There are old left-sided rib deformities.[ IMPRESSION: No active disease in the chest. ACT 112: Negative or not required by law. Electronically signed by: Elieser Cha M.D. 01/01/2021 3:05 PM
[2021-01-01 15:20] LABS: Basophils # (auto) 0.04 K/uL (0-0.2); Basophils % (auto) 0.4 %; Eosinophils # (auto) 0.17 K/uL (0-0.5); Eosinophils % (auto) 1.8 %; Hematocrit (blood only) 31.4 % (37-47); Hemoglobin 10.1 g/dL (12.0-16.0); Immature Granulocytes # (auto) 0.02 K/uL (0.00-0.02); Immature Granulocytes % (auto) 0.2 %; Lymphocytes # (auto) 0.84 K/uL (1.2-3.4); Lymphocytes % (auto) 8.9 %; Mean Corpuscular Hemoglobin 26.4 pg (25-34); Mean Corpuscular Hgb Conc 32.2 g/dL (32-36); Mean Platelet Volume 9.9 fL (7.4-10.4); Monocytes # (auto) 0.46 K/uL (0.11-0.59); Monocytes % (auto) 4.9 %; Neutrophils # (auto) 7.93 K/uL (1.4-6.5); Neutrophils % (auto) 83.8 %; Platelet Count 286 K/uL (130-400); RDW Coefficient of Variation 14.9 % (11.5-14.5); RDW Standard Deviation 44.5 fL (36.4-46.3); Red Blood Count 3.83 M/uL (4.2-5.4); White Blood Count 9.46 K/uL (4.8-10.8)
[2021-01-01 15:37] LABS: Alanine Aminotransferase 20 U/L (12-78); Albumin Level 3.3 gm/dl (3.4-5.0); Aspartate Aminotransferase 15 U/L (15-37); BUN Creatinine Ratio 13.9 (10-20); Bilirubin Direct 0.1 mg/dl (0-0.2); Blood Urea Nitrogen 30 mg/dl (7-18); Calcium 8.6 mg/dl (8.5-10.1); Carbon Dioxide 25 mmol/L (21-32); Chloride 90 mmol/L (98-107); Creatinine Clr Calc Pharmacy 24.8 ml/min; Est GFR (African American) 25.3 ml/min; Est GFR (Non-African American) 21.8 ml/min; Glucose 243 mg/dl (70-99); Lipase 156 U/L (73-393); Magnesium 2.6 mg/dl (1.8-2.4); Potassium 4.2 mmol/L (3.5-5.1); Sodium 124 mmol/L (136-145)
[2021-01-01 15:40] LABS: Albumin Globulin Ratio 0.8 (0.9-2); Alkaline Phosphatase 136 U/L (45-117); Bilirubin,Total 0.3 mg/dl (0.2-1); Creatine Kinase 95 U/L (26-192); Globulin 4.2 gm/dl (2.5-4.0); Phosphorus 3.9 mg/dl (2.5-4.9); Total Protein 7.5 gm/dl (6.4-8.2); Troponin I < 0.015 ng/ml (0-0.045)
[2021-01-01 15:42] LABS: Partial Thromboplastin Ratio 1.2; Partial Thromboplastin Time 30.8 Seconds (21.0-31.0); Prothrombin Time 9.8 Seconds (9.0-12.0)
--- NOTE | 2021-01-01 16:41 | Electrocardiogram Report ---
Test Reason : Blood Pressure : / mmHG Vent. Rate : 081 BPM Atrial Rate : 085 BPM P-R Int : 000 ms QRS Dur : 090 ms QT Int : 388 ms P-R-T Axes : 000 000 082 degrees QTc Int : 450 ms Atrial fibrillation Possible Old Anterior infarct (cited on or before 10-NOV-2017) Possible Old Inferior infarct When compared with ECG of 25-DEC-2019 20:57, No significant change Confirmed by Ulices Tony ([id number]) on 01/01/2021 4:40:34 PM Referred By: ED Confirmed By:Ulices Tony
[2021-01-01] MEDS ORDERED: FUROSEMIDE 40 MG/4 ML VIAL IV STA (16:58)
[2021-01-01 16:59] LABS: Appearance Urine Clear (Clear); Bacteria Urine Automated Negative (Negative); Bilirubin Urine Negative (Negative); Blood Urine 1+ (Negative); Cast Urine Automated 0 /lpf (0-5); Color Urine Yellow; Epithelial Cell Urine Auto 20-30 /lpf (0-5); Glucose Urine UA 1+ (Negative); Ketones Urine Negative (Negative); Leukocyte Esterase Urine Trace (Negative); Nitrite Urine Negative (Negative); Protein Urine Trace (Negative); RBC Urine Automated 0-4 /hpf (0-4); Specific Gravity Urine 1.008 (1.000-1.030); Urobilinogen Urine Negative (Negative)
[2021-01-01] MEDS ORDERED: GLUCOSE 40% GEL 15 GM TUBE PO PRN (17:51)
[2021-01-01] MEDS ORDERED: DEXTROSE 50% 50 ML SYRINGE IV PRN (17:51)
[2021-01-01] MEDS ORDERED: GLUCOSE 10 TABS/TUBE PO PRN (17:51)
[2021-01-01] MEDS ORDERED: CARBOHYDRATES FOR HYPOGLYCEMIA PO PRN (17:51)
[2021-01-01] MEDS ORDERED: GLUCAGON FOR INJ 1 MG VIAL SQ PRN (17:51)
[2021-01-01] MEDS ORDERED: POLYETHYLENE (MIRALAX) 17 GM PACK PO PRN (17:51)
--- NOTE | 2021-01-01 18:37 | History & Physical Report ---
Date of Service January 01, 2021 Assessment & Plan (1) COPD (chronic obstructive pulmonary disease): Consistent with COPD exacerbation secondary to bronchitis - Continue scheduled combivent q6 and nebs q8 scheduled for 24 hours - Methylpred 40 mg IV q6 - Azithromycin 500mg then 250mg qd - Add Breo ellipta 100/25 daily (2) Hyponatremia: Corrected for glucose is at patient baseline 127-130 - asymptomatic - Consistent with hypervolemia hyponatremia evaluate in the morning following diuresing given in the EMD - Osmo 274 - if no improvement by morning with glucose control and diuresing can fluid restrict (3) Chronic kidney disease, stage 4 (severe): Although last renal function on file was last year, her current numbers are markedly imrpoved - follow BMP with mild diuresing - continue oral diuretics tomorrow (4) Hypertension: May need better controlled as outpatient goal <140 - currently on lasix 40 daily - trend overnight (5) Afib: Currently rate controlled, patient was on coumadin ~2018, patient reports that they stopped this. - She is not on any anticoagulation at this time and likely related to her his tory of chronic falls and supratherapeutic INRs (6) DMII (diabetes mellitus, type 2): Continue with basal bolus insulin - Goal <180 (7) Diastolic CHF: As above, BP control and follow diuresing overnight, goal 500-1000ml negative - she is not on a BB, ws in the past (8) Chronic indwelling Hodges catheter: Patient reports that she has this changed every month and was done by home nurse this morning- Unsure why she has this, she reports because of her renal function and UTIs History of Present Illness Primary Care Provider: Sanchez Barroso MD 75 YOF with past medical with HFpEF, CAD with stent, paroxysmal afib(not on anticoagulation), chronic Hodges catheter (changed out every month), DMII (on insulin), chronic hyponatremia, CKD III, GERD, lacunar cva's, chronic bed bound that gets around with wheel chair, history of decubitus to heels and buttocks. Patient comes to the emergency room today for increase in dyspnea and cough that has been going on for the last month, she was brought in by EMS after her home health nurse was there to change her hodges catheter called her PCP to let her know that she was wheezing and coughing allot. Her cough is minimally productive with she reports clear secretions, she has also increased her use of nebulizers at home to 3-4 times per day and gets some relief for about 4-6 hours, she is not on oxygen at home and is not on any in the EMD. In the ED she had routine labs that revealed hyponatremia, DEMETRA, and elevated BNP, she also had a CXR done that did not show any overt heart failure. She was given Dexamethas one and nebulizer in the EMD as well as 40 mg IV Lasix and hospital team was notified for admission. Patient will be admitted to medical surgical floor, continue with scheduled nebulizers for 24 hours and treated for COPD exacerbation/bronchitis. Patient states she has not been to a Dr. in many years, reports they stopped her anticoagulation years ago and hasn't been on anything since, as well as her BP medications and heart rate medications. I did call the son Shaq who is her POA and Emergency contact to review the above information and review her medication list. Allergies Allergy/AdvReac Type Severity Reaction Status Date / Time Latex, Natural Rubber Allergy Mild Rash Verified 01/01/21 20:46 tramadol Allergy Unknown Unverified 01/01/21 17:54 nickel AdvReac Rash Verified 01/01/21 20:47 Home Medications Medication Instructions Recorded Confirmed Type acetaminophen [Tylenol Extra 500 - 1,000 mg PO Q6H PRN MDD MAX 12/25/19 01/01/21 History Strength] 6 TAB/24 HOURS Wheelchair (Manual or Powered) #1 ea 12/30/19 08/23/20 Rx nebulizers #1 ea 01/03/20 08/23/20 Rx insulin glargine 100 unit/mL (3 10 unit SUBCUT .COMPLEX #15 ml 01/31/20 01/01/21 Rx mL) subcutaneous pen blood sugar diagnostic #50 ea 03/20/20 08/23/20 Rx gabapentin 300 mg capsule 300 mg PO TID #270 cap 11/26/20 01/01/21 Rx lorazepam 0.5 mg tablet 0.5 mg PO Q4H PRN #30 tab 12/24/20 01/01/21 Rx promethazine 25 mg tablet 25 mg PO Q6H PRN #30 tab 12/24/20 01/01/21 Rx albuterol sulfate 2 inh INH QID PRN 01/01/21 01/01/21 History levalbuterol HCl 3 mg INHALATION UD 01/01/21 01/01/21 History omeprazole 20 mg PO BID 01/01/21 01/01/21 History amlodipine [Norvasc] 2.5 mg PO QAM 30 Days #15 tab 01/04/21 Rx apixaban [Eliquis] 2.5 mg PO BID 30 Days #60 tab 01/04/21 Rx bumetanide 1 mg PO BID17 30 Days #30 tab 01/04/21 Rx calcitriol 0.25 mcg PO QAM 30 Days #30 cap 01/04/21 Rx ergocalciferol (vitamin D2) 50,000 unit PO Q7D #8 cap 01/04/21 Rx fluticasone furoate-vilanterol 1 ea INHALATION DAILY #28 ea 01/04/21 Rx [Breo Ellipta] insulin NPH isoph U-100 human See Rx Instructions .ROUTE 01/04/21 Rx [Novolin N NPH U-100 Insulin] .COMPLEX #10 ml insulin aspart U-100 [Novolog See Rx Instructions .ROUTE 01/04/21 Rx Flexpen U-100 Insulin] .COMPLEX #15 ml insulin syringe-needle U-100 #100 ea 01/04/21 Rx [Insulin Syringe] prednisone 10 mg PO QAM #9 tab 01/04/21 Rx sodium bicarbonate 650 mg PO TID #30 tab 01/04/21 Rx Past Med/Surg History Medical History A-fib AMI (acute myocardial infarction) Anemia ARF (acute renal failure) Bronchitis Chronic kidney disease COPD (chronic obstructive pulmonary disease) Diabetes Fall in home Fracture of right distal radius Fracture of right ulnar styloid Hypertension Hypoglycemia Hyponatremia Insulin overdose Left sided chest pain Narcotic-induced nausea and vomiting PNA (pneumonia) Renal insufficiency Shortness of breath UTI (urinary tract infection) Surgical History History of cataract surgery History of esophagogastroduodenoscopy (EGD) History of lung surgery Family History Unknown Diabetes Pancreatic cancer Lung cancer Coronary heart disease Breast cancer Other Family history non-contributory Denies family history of Ovarian cancer Prostate cancer Myocardial infarction Colorectal cancer Social History Smoking Status: Former smoker Hx Alcohol Use: No Hx Substance Use: No Preferred Language: Mongolian Communication Ability: Effective Beliefs That Will Affect Care: None marital status: Current Living Situation: Spouse and Family current occupational status: retired Feels Safe at Home: Yes Assistive Devices: Wheelchair Review of Systems Review of Systems: REVIEW OF SYSTEMS: Constitutional: No fever, sweats or chills Eyes: No diplopia, no worsening or blurred vision ENT: normal hearing, no trouble swallowing Respiratory: (+) cough, sputum, dyspnea at rest or on exertion Cardiovascular: No chest pain, tightness or palpitations Abdomen: No pain, nausea, vomiting, diarrhea or constipation Musculoskeletal: No joint pain, calf pain, swelling Neurologic: No weakness, numbness/tingling, or balance problems Psychiatric: No anxiety or depression Skin: No rash or itch Physical Exam Physical Exam: PHYSICAL EXAM: General: awake, alert, no apparent distress Head: Normocephalic, atraumatic ENT: PERRL, EOMI, no pharyngeal exudate, mucous membranes moist Neuro: AAO x 3, speech clear and appropriate, strength intact bilaterally 5/5, sensation intact and equal all extremities and dermatomes, no pronator drift Chest: equal rise and fall of the chest, no accessory muscle use, no heaves or thrills, inspiratory expiratory wheeze, raspy cough, scattered crackles, on room air, Cardiac: Regular rate and rhythm, telemetry reviewed- afib, skin warm dry, cap refill <3 seconds, peripheral pulses +2 no JVD, no murmur, GI: NABS x 4 quadrants, soft, nontender to palpation, no rebound, guarding or tenderness : chronic Hodges- draining dilute yellow urine, no pain, no CVA tenderness, Extremities: Normal inspection, no peripheral edema or erythema, calfs nontender to palpation, right leg slightly larger than left, no pain Psych: Normal mood and affect Skin: no rash or erythema, no areas of breakdown on heels, mild redness to sacrum Results & Data Results & Data ([facility]) Vital Signs (Past 12 Hours) Vital Signs Temp Pulse Pulse Resp BP Pulse Ox 01/01/21 18:00 107 H 22 205/132 H 94 01/01/21 17:50 110 H 25 H 92 01/01/21 17:40 107 H 25 H 94 01/01/21 17:31 102 H 20 188/134 H 94 01/01/21 17:30 104 H 21 96 01/01/21 17:20 112 H 18 144/87 H 93 01/01/21 17:10 114 H 21 92 01/01/21 17:01 110 H 21 176/100 H 93 01/01/21 17:00 104 H 20 88 L 01/01/21 16:50 98 H 22 95 01/01/21 16:40 110 H 20 96 01/01/21 16:30 105 H 17 182/98 H 100 01/01/21 16:20 92 H 24 100 01/01/21 16:11 107 H 16 151/75 H 100 01/01/21 16:10 96 H 20 100 01/01/21 16:00 97 H 21 142/100 H 100 01/01/21 15:50 97 H 16 100 01/01/21 15:40 84 22 100 01/01/21 15:30 85 20 175/92 H 100 01/01/21 15:20 78 21 100 01/01/21 15:10 78 14 100 01/01/21 15:00 71 14 156/75 H 100 01/01/21 14:55 75 20 97 01/01/21 14:50 76 21 96 01/01/21 14:45 74 18 96 01/01/21 14:40 77 20 143/98 H 96 01/01/21 14:31 84 16 167/114 H 95 01/01/21 14:30 81 18 95 01/01/21 14:24 77 19 96 01/01/21 14:10 36.9 C 84 20 183/90 H 95 01/01/21 14:07 73 21 183/90 H 96 Laboratory Results Abnormal lab results 01/01/21 01/01/21 01/01/21 Range/Units 14:32 14:32 14:35 RBC 3.83 L (4.2-5.4) M/uL Hgb 10.1 L (12.0-16.0) g/dL Hct 31.4 L (37-47) % RDW Coeff of Michael 14.9 H (11.5-14.5) % Neut # (Auto) 7.93 H (1.4-6.5) K/uL Lymph # (Auto) 0.84 L (1.2-3.4) K/uL Sodium 124 L (136-145) mmol/L Chloride 90 L (98-107) mmol/L BUN 30 H (7-18) mg/dl Creatinine 2.14 H (0.6-1.2) mg/dl Glucose 243 H (70-99) mg/dl Osmolality (280-300) mOsm/kg Magnesium 2.6 H (1.8-2.4) mg/dl Alkaline Phosphatase 136 H (45-117) U/L NT-Pro-B Natriuret Pep 6448 H (0-1800) pg/ml Albumin 3.3 L (3.4-5.0) gm/dl Globulin 4.2 H (2.5-4.0) gm/dl Albumin/Globulin Ratio 0.8 L (0.9-2) Urine Protein (Negative) Urine Glucose (UA) (Negative) Urine Blood (Negative) Ur Leukocyte Esterase (Negative) U Epithel Cells (Auto) (0-5) /lpf Urine Osmolality (500-800) mOsm/kg 01/01/21 01/01/21 01/01/21 Range/Units 16:30 16:30 17:05 RBC (4.2-5.4) M/uL Hgb (12.0-16.0) g/dL Hct (37-47) % RDW Coeff of Michael (11.5-14.5) % Neut # (Auto) (1.4-6.5) K/uL Lymph # (Auto) (1.2-3.4) K/uL Sodium (136-145) mmol/L Chloride (98-107) mmol/L BUN (7-18) mg/dl Creatinine (0.6-1.2) mg/dl Glucose (70-99) mg/dl Osmolality 274 L (280-300) mOsm/kg Magnesium (1.8-2.4) mg/dl Alkaline Phosphatase (45-117) U/L NT-Pro-B Natriuret Pep (0-1800) pg/ml Albumin (3.4-5.0) gm/dl Globulin (2.5-4.0) gm/dl Albumin/Globulin Ratio (0.9-2) Urine Protein Trace H (Negative) Urine Glucose (UA) 1+ H (Negative) Urine Blood 1+ H (Negative) Ur Leukocyte Esterase Trace H (Negative) U Epithel Cells (Auto) 20-30 H (0-5) /lpf Urine Osmolality 157 L (500-800) mOsm/kg Diagnostic Findings Chest X-Ray 01/01/21 14:32 XR chest 1V portable CLINICAL HISTORY: Atypical chest pain COMPARISON STUDY: 12/25/2019 FINDINGS: The cardiac and mediastinal contours remain stable. There is no failure. There is no acute parenchymal consolidation. There are no significant pleural effusions. There is a stable left lateral basilar opacity likely representing a fat pad. There are old left-sided rib deformities.[ IMPRESSION: No active disease in the chest. Electronically signed by: Elieser Cha M.D. 01/01/2021 3:05 PM Medications Administered Discontinued Medications Albuterol (Albut/Ipratrop 3mg/0.5mg Neb 3 Ml Vial) 12 ml NEB ONE ONE Stop: 01/01/21 14:33 Last Admin: 01/01/21 14:55 Dose: 12 ml Documented by: [id number] Dexamethasone Sodium Phosphate (DexamethasonePf 10 Mg/Ml Vial) 10 mg IV NOW ONE Stop: 01/01/21 14:33 Last Admin: 01/01/21 15:07 Dose: 10 mg Documented by: [id number] Furosemide (Furosemide 40 Mg/4 Ml Vial) 20 mg IV NOW STA Stop: 01/01/21 16:59 Last Admin: 01/01/21 17:24 Dose: 20 mg Documented by: [id number] Guaifenesin (Guaifenesin 600 Mg Tabcr) 600 mg PO NOW STA Stop: 01/01/21 14:33 Last Admin: 01/01/21 15:06 Dose: 600 mg Documented by: [id number] ECG Additional Comments: Atrial fibrillation Possible Old Anterior infarct (cited on or before 10-NOV-2017) Possible Old Inferior infarct When compared with ECG of 25-DEC-2019 20:57, No significant change Code Status & VTE Plan Code Status CODE: Conditional- CPR WITH ACLS PROTOCOLS----NO INTUBATION VTE: SCD'S, HEPARIN SUB Q VTE Prophylaxis Plan VTE Prophylaxis will be ordered: Yes Supervising Physician Co-Signing Physician Notes During my face to face encounter with the patient, I obtained a history and physical examination. I reviewed and agree with above note and discussed case with NAHOMY Laws. I answered all of the patient's question. will admit for COPD exacerbation will treat with azithromycin PG Care Time/CCT Total # of Minutes Spent Total Time Spent with Patient: Total time spent is greater than 50% in coordination of care (as documented) at patient's floor/unit and/or counseling patient: Coding Level of Care Code 09340 Initial Inpt Care Lvl 3 Diagnoses COPD (chronic obstructive pulmonary disease) J44.9 COPD type: unspecified COPD Hyponatremia E87.1 Chronic kidney disease, stage 4 (severe) N18.4 Hypertension I10 Hypertension type: essential hypertension Afib I48.91 Atrial fibrillation type: unspecified DMII (diabetes mellitus, type 2) E11.69; Z79.4 Diabetes mellitus complication status: with other specified complication Diabetes mellitus residential insulin use: with residential use Diastolic CHF I50.33 Heart failure chronicity: acute on chronic Chronic indwelling Hodges catheter Z97.8 (1) Diastolic CHF Heart failure chronicity: acute on chronic Qualified Code(s): I50.33 - Acute on chronic diastolic (congestive) heart failure (2) DMII (diabetes mellitus, type 2) Diabetes mellitus complication status: with other specified complication Diabetes mellitus residential insulin use: with manager long term care use Qualified Code(s): E11.69 - Type 2 diabetes mellitus with other specified complication; Z79.4 - snf (current) use of insulin (3) Afib Atrial fibrillation type: unspecified Qualified Code(s): I48.91 - Unspecified atrial fibrillation (4) COPD (chronic obstructive pulmonary disease) COPD type: unspecified COPD Qualified Code(s): J44.9 - Chronic obstructive pulmonary disease, unspecified (5) Hypertension Hypertension type: essential hypertension Qualified Code(s): I10 - Essential (primary) hypertension
[2021-01-01] MEDS ORDERED: AZITHROMYCIN 250 MG TAB PO ONE (20:10)
[2021-01-01] MEDS ORDERED: LORazepam 0.5 MG TAB PO PRN (20:10)
[2021-01-01] MEDS ORDERED: guaiFENesin/DEXTROM SYRUP 100MG/10MG 5ML UDC PO PRN (20:32)
[2021-01-01] MEDS ORDERED: INSULIN GLARGINE SOLOSTAR 100 UNITS/ML 3 ML PEN SQ SCH (21:00)
[2021-01-01] MEDS: ALBUTEROL HFA 8 GM INHALER INH SCH (21:10)
[2021-01-01] MEDS: INSULIN ASPART 100 UNITS/ML 3 ML PEN SC SCH (21:20)
[2021-01-01] MEDS: HEPARIN SOD 5,000 UNIT/0.5 ML VIAL SQ SCH (21:32)
[2021-01-01] MEDS: FUROSEMIDE 40 MG TAB PO SCH (21:32)
[2021-01-01] MEDS: PANTOprazole 40 MG TAB PO SCH (21:33)
[2021-01-01] MEDS: methylPREDNISolone 40 MG in SYRINGE 0 ML IV SCH (21:33)
[2021-01-01] MEDS: GABAPENTIN 300 MG CAP PO SCH (21:33)
[2021-01-01] MEDS ORDERED: LEVALBUTEROL 0.31MG/3 ML VIAL INH PRN (22:00)
[2021-01-02] MEDS ORDERED: PHARMACY GLYCEMIC MGMT CONSULT PRN (00:06)
[2021-01-02] MEDS: INSULIN ASPART 100 UNITS/ML 3 ML PEN SC SCH ×6 (00:08→20:58)
[2021-01-02] MEDS ORDERED: INSULIN GLARGINE SOLOSTAR 100 UNITS/ML 3 ML PEN SQ ONE (00:15)
[2021-01-02] MEDS: methylPREDNISolone 40 MG in SYRINGE 0 ML IV SCH ×4 (03:59→21:01)
[2021-01-02] MEDS: ACETAMINOPHEN 325 MG TAB PO PRN (04:04)
[2021-01-02] MEDS: HEPARIN SOD 5,000 UNIT/0.5 ML VIAL SQ SCH ×3 (05:16→21:01)
[2021-01-02 06:20] LABS: Hematocrit (blood only) 33.3 % (37-47); Hemoglobin 10.6 g/dL (12.0-16.0); Immature Granulocytes # (auto) 0.02 K/uL (0.00-0.02); Immature Granulocytes % (auto) 0.3 %; Lymphocytes # (auto) 0.33 K/uL (1.2-3.4); Lymphocytes % (auto) 4.4 %; Mean Corpuscular Hemoglobin 26.3 pg (25-34); Mean Corpuscular Hgb Conc 31.8 g/dL (32-36); Mean Corpuscular Volume 82.6 fL (80-100); Mean Platelet Volume 10.2 fL (7.4-10.4); Monocytes # (auto) 0.01 K/uL (0.11-0.59); Monocytes % (auto) 0.1 %; Neutrophils # (auto) 7.17 K/uL (1.4-6.5); Neutrophils % (auto) 95.2 %; Platelet Count 283 K/uL (130-400); RDW Coefficient of Variation 14.8 % (11.5-14.5); RDW Standard Deviation 45.3 fL (36.4-46.3); Red Blood Count 4.03 M/uL (4.2-5.4); White Blood Count 7.53 K/uL (4.8-10.8)
[2021-01-02 06:40] LABS: BUN Creatinine Ratio 13.9 (10-20); Creatinine Clr Calc Pharmacy 22.6 ml/min; Est GFR (African American) 23.5 ml/min; Est GFR (Non-African American) 20.3 ml/min; Magnesium 2.6 mg/dl (1.8-2.4); Potassium 4.5 mmol/L (3.5-5.1)
[2021-01-02] MEDS: ALBUTEROL HFA 8 GM INHALER INH SCH ×4 (07:09→19:38)
[2021-01-02] MEDS: ONDANSETRON INJ 2 MG/ML 2 ML VIAL IV PRN (07:34)
[2021-01-02] MEDS ORDERED: INSULIN HUMAN NPH SC SCH (08:00)
--- NOTE | 2021-01-02 08:16 | Hospitalist Progress Note ---
Date of Service January 02, 2021 Assessment & Plan (1) COPD (chronic obstructive pulmonary disease): Consistent with COPD exacerbation secondary to bronchitis * Methylprednisolone 40mg IV Q6H scheduled --> will continue through today then change to prednisone 40mg daily for total 5 days at discharge * Azithromycin (on day 2 of therapy) to complete 5 day course * Continued Combivent Q6H * Nebs Q8H scheduled --> can change to prn tomorrow * Guafenesin prn cough * Supplemental O2 as needed -- 97% on RA * Continue incentive spirometer * Repeat CXR this AM with mild interval worsening of opacities within L retrocardiac region representing atelectasis vs infiltrates. Small b/l effusion. Questionable lucenies which may rep prominent fat planes vs SQ emphysema (not appreciated on examination) * Given extra 20mg IV dose of Lasix this morning for hyponatremia/hypovolemia and * repeating labs this afternoon. * Fluid restriction also in place Added Breo daily -- consider continuing at discharge Continue to monitor (2) Hyponatremia: * Corrected for glucose is at patient baseline 127-130 on admission but Na low 123 this AM with glucose 230 * Also could have some chronic hyponatremia from her lorazepam. * hypervolemia hyponatremia -- extra lasix this AM 20mg IV in addition to fluid restriction * BNP elevated to 6448 -- will have nursing get weights/i&o as well * Will check TSH (last normal 2017) * Given her sob w exertion, will also obtain ECHO * BMP this afternoon (3) Chronic kidney disease, stage 4 (severe): * Although last renal function on file was last year, her current numbers are markedly imrpoved * Cr 2.27 after diuresis however normal range in 2018 closer to 2.6-3 * Diuretics as above * Follow BMP (4) Hypertension: * May need better controlled as outpatient goal <140 * BP 161/82 * Lasix 40mg PO BID -- also got extra 20mg IV dose today 01/02 * Continue to monitor * Consider adding back agents as she had been on in the past but since stopped (5) Afib: * Currently rate controlled, patient was on coumadin ~2018, patient reports that they stopped this. * She is not on any anticoagulation at this time and likely related to her history of chronic falls and supratherapeutic INRs (6) DMII (diabetes mellitus, type 2): * Continue with basal bolus insulin * - Goal <180 * Pharmacy on consult for glycemic management -- close monitoring required for her elevated blood sugars on steroids-- currently 324 (7) Diastolic CHF: * As above, BP control and follow diuresing overnight, goal 500-1000ml negative * - she is not on a BB, ws in the past * Lasix 40mg BID ordered STRAIGHT [employer]TER -- continued * See above regarding additional diuresis * ECHO ordered als above (8) GERD (gastroesophageal reflux disease): * Continue Protonix BID (9) Chronic indwelling Mccollum catheter: * Patient reports that she has this changed every month and was done by home nurse this morning- Unsure why she has this, she reports because of her renal function and UTIs DVT Prophylaxis * SCDs * Heparin SQ *Will need f/u with podiatry at d/c for toenail trimming/care/monitoring Dispo: continued inpatient stay PT/OT consults ordered Admission and Anticipated Discharge Date Admission Date: January 01, 2021 Subjective Patient evaluated this morning. Had been using nebs 2x/daily over past couple weeks due to increased cough/sob. Prior episodes of bronchitis/COPD exacerbation similar per patient. Breathing much improved but still with non-productive cough. Does have some shortness of breath with laying flat. She admits this is improved compared to yesterday, but still with wheezing. Discussed continuing scheduled nebs for now and changing to prn this evening. She notes she has to watch with prednisone because her sugars go WAY up. Discussed pharmacy on consult to help manage her sugars. She notes she takes her insulin twice daily and checks sugars twice daily. Was on SSI in the past but d/c for ease of use. Discussed low sodium and would like her to have fluid restriction to help improve this level and will repeat labs this afternoon with additional diuresis to re-asses. Patient agreeable. No fever, chills, chest pain, abdominal pain, fullness, nausea, vomiting, or other complaints at this time. Possible d/c home tomorrow but will have PT/OT evals first. [place] are to get thunderstorms tomorrow so transportation may be an issue. She also has issues with long toenails. Hx neuropathy. Has not been seen by Podiatry in past. Recommended follow up at d/c for podiatric care vs inpatient consultation. Review of Systems Review of Systems: All systems reviewed & are unremarkable except as noted in HPI & below Physical Exam Physical Exam: PHYSICAL EXAM: General: awake, alert, no apparent distress, sitting up in bed eating lunch Head: Normocephalic, atraumatic ENT: PERRL, EOMI, no pharyngeal exudate, mucous membranes moist Neuro: AAO x 3, speech clear and appropriate, strength intact bilaterally 5/5, sensation intact and equal all extremities and dermatomes, no pronator drift Resp: no tachypnea, +cough, no respiratory distress or accessory muscle use 97% on room air. bibasilar crackles, diffuse posterior expiratory wheezing Cardiac: irregularly irregular, not tachycardic , skin warm dry, cap refill <3 seconds, peripheral pulses +2 no JVD, no murmur GI: NABS x 4 quadrants, soft, nontender to palpation, no rebound, guarding or tenderness : chronic Mccollum- draining dilute yellow urine, no pain, no CVA tenderness, Extremities: Normal inspection, no peripheral edema or erythema, calfs nontender to palpation, no edema, no pain Psych: Normal mood and affect Skin: no rash or erythema, no areas of breakdown on heels, mild redness to sacrum fungal appearance to toenails with claw toe to b/l 1st toe Results & Data Results & Data ([facility]) Vital Signs (Past 12 Hours) Vital Signs Temp Pulse Resp BP Pulse Ox 01/02/21 07:27 36.7 C 75 18 161/82 H 97 01/02/21 07:09 75 20 98 01/01/21 22:29 36.9 C 89 16 153/75 H 95 01/01/21 21:10 74 18 96 01/01/21 20:26 36.9 C 105 H 18 170/64 H 97 Laboratory Results 01/02/21 01/02/21 01/02/21 Range/Units 12:06 12:06 12:05 WBC (4.8-10.8) K/uL RBC (4.2-5.4) M/uL Hgb (12.0-16.0) g/dL Hct (37-47) % MCV (80-100) fL MCH (25-34) pg MCHC (32-36) g/dL RDW Std Deviation (36.4-46.3) fL RDW Coeff of Michael (11.5-14.5) % Plt Count (130-400) K/uL MPV (7.4-10.4) fL Immature Gran % (Auto) % Neut % (Auto) % Lymph % (Auto) % Drew % (Auto) % Eos % (Auto) % Baso % (Auto) % Neut # (Auto) (1.4-6.5) K/uL Lymph # (Auto) (1.2-3.4) K/uL Drew # (Auto) (0.11-0.59) K/uL Eos # (Auto) (0-0.5) K/uL Baso # (Auto) (0-0.2) K/uL Immature Gran # (Auto) (0.00-0.02) K/uL PT (9.0-12.0) Seconds INR (0.9-1.1) APTT (21.0-31.0) Seconds PTT Ratio Sodium (136-145) mmol/L Potassium (3.5-5.1) mmol/L Chloride (98-107) mmol/L Carbon Dioxide (21-32) mmol/L Anion Gap (3-11) BUN (7-18) mg/dl Creatinine (0.6-1.2) mg/dl Est Cr Clr Drug Dosing ml/min Est GFR ( Amer) ml/min Est GFR (Non-Af Amer) ml/min BUN/Creatinine Ratio (10-20) Glucose (70-99) mg/dl POC Glucose 324 H* 317 H* 312 H* (70-99) mg/dl Osmolality (280-300) mOsm/kg Calcium (8.5-10.1) mg/dl Phosphorus (2.5-4.9) mg/dl Magnesium (1.8-2.4) mg/dl Total Bilirubin (0.2-1) mg/dl Direct Bilirubin (0-0.2) mg/dl AST (15-37) U/L ALT (12-78) U/L Alkaline Phosphatase (45-117) U/L Total Creatine Kinase (26-192) U/L Troponin I (0-0.045) ng/ml NT-Pro-B Natriuret Pep (0-1800) pg/ml Total Protein (6.4-8.2) gm/dl Albumin (3.4-5.0) gm/dl Globulin (2.5-4.0) gm/dl Albumin/Globulin Ratio (0.9-2) Lipase (73-393) U/L Urine Color Urine Appearance (Clear) Urine pH (4.5-7.5) Ur Specific [place] (1.000-1.030) Urine Protein (Negative) Urine Glucose (UA) (Negative) Urine Ketones (Negative) Urine Blood (Negative) Urine Nitrite (Negative) Urine Bilirubin (Negative) Urine Urobilinogen (Negative) Ur Leukocyte Esterase (Negative) Urine WBC (Auto) (0-5) /hpf Urine RBC (Auto) (0-4) /hpf U Hyaline Cast (Auto) (0-5) /lpf U Epithel Cells (Auto) (0-5) /lpf Urine Bacteria (Auto) (Negative) Urine Osmolality (500-800) mOsm/kg Ur Random Sodium mmol/L COVID-19 Eval Order SARS-CoV-2 (PCR) (Negative) 01/02/21 01/02/21 01/02/21 Range/Units 08:26 05:56 05:56 WBC 7.53 (4.8-10.8) K/uL RBC 4.03 L (4.2-5.4) M/uL Hgb 10.6 L (12.0-16.0) g/dL Hct 33.3 L (37-47) % MCV 82.6 (80-100) fL MCH 26.3 (25-34) pg MCHC 31.8 L (32-36) g/dL RDW Std Deviation 45.3 (36.4-46.3) fL RDW Coeff of Michael 14.8 H (11.5-14.5) % Plt Count 283 (130-400) K/uL MPV 10.2 (7.4-10.4) fL Immature Gran % (Auto) 0.3 % Neut % (Auto) 95.2 % Lymph % (Auto) 4.4 % Drew % (Auto) 0.1 % Eos % (Auto) 0.0 % Baso % (Auto) 0.0 % Neut # (Auto) 7.17 H (1.4-6.5) K/uL Lymph # (Auto) 0.33 L (1.2-3.4) K/uL Drew # (Auto) 0.01 L (0.11-0.59) K/uL Eos # (Auto) 0.00 (0-0.5) K/uL Baso # (Auto) 0.00 (0-0.2) K/uL Immature Gran # (Auto) 0.02 (0.00-0.02) K/uL PT (9.0-12.0) Seconds INR (0.9-1.1) APTT (21.0-31.0) Seconds PTT Ratio Sodium 123 L (136-145) mmol/L Potassium 4.5 (3.5-5.1) mmol/L Chloride 91 L (98-107) mmol/L Carbon Dioxide 22 (21-32) mmol/L Anion Gap 11.0 (3-11) BUN 32 H (7-18) mg/dl Creatinine 2.27 H (0.6-1.2) mg/dl Est Cr Clr Drug Dosing 22.6 ml/min Est GFR ( Amer) 23.5 ml/min Est GFR (Non-Af Amer) 20.3 ml/min BUN/Creatinine Ratio 13.9 (10-20) Glucose 230 H (70-99) mg/dl POC Glucose 220 H (70-99) mg/dl Osmolality (280-300) mOsm/kg Calcium 9.0 (8.5-10.1) mg/dl Phosphorus (2.5-4.9) mg/dl Magnesium 2.6 H (1.8-2.4) mg/dl Total Bilirubin (0.2-1) mg/dl Direct Bilirubin (0-0.2) mg/dl AST (15-37) U/L ALT (12-78) U/L Alkaline Phosphatase (45-117) U/L Total Creatine Kinase (26-192) U/L Troponin I (0-0.045) ng/ml NT-Pro-B Natriuret Pep (0-1800) pg/ml Total Protein (6.4-8.2) gm/dl Albumin (3.4-5.0) gm/dl Globulin (2.5-4.0) gm/dl Albumin/Globulin Ratio (0.9-2) Lipase (73-393) U/L Urine Color Urine Appearance (Clear) Urine pH (4.5-7.5) Ur Specific [place] (1.000-1.030) Urine Protein (Negative) Urine Glucose (UA) (Negative) Urine Ketones (Negative) Urine Blood (Negative) Urine Nitrite (Negative) Urine Bilirubin (Negative) Urine Urobilinogen (Negative) Ur Leukocyte Esterase (Negative) Urine WBC (Auto) (0-5) /hpf Urine RBC (Auto) (0-4) /hpf U Hyaline Cast (Auto) (0-5) /lpf U Epithel Cells (Auto) (0-5) /lpf Urine Bacteria (Auto) (Negative) Urine Osmolality (500-800) mOsm/kg Ur Random Sodium mmol/L COVID-19 Eval Order SARS-CoV-2 (PCR) (Negative) 01/02/21 01/01/21 01/01/21 Range/Units 03:55 23:52 21:13 WBC (4.8-10.8) K/uL RBC (4.2-5.4) M/uL Hgb (12.0-16.0) g/dL Hct (37-47) % MCV (80-100) fL MCH (25-34) pg MCHC (32-36) g/dL RDW Std Deviation (36.4-46.3) fL RDW Coeff of Michael (11.5-14.5) % Plt Count (130-400) K/uL MPV (7.4-10.4) fL Immature Gran % (Auto) % Neut % (Auto) % Lymph % (Auto) % Drew % (Auto) % Eos % (Auto) % Baso % (Auto) % Neut # (Auto) (1.4-6.5) K/uL Lymph # (Auto) (1.2-3.4) K/uL Drew # (Auto) (0.11-0.59) K/uL Eos # (Auto) (0-0.5) K/uL Baso # (Auto) (0-0.2) K/uL Immature Gran # (Auto) (0.00-0.02) K/uL PT (9.0-12.0) Seconds INR (0.9-1.1) APTT (21.0-31.0) Seconds PTT Ratio Sodium (136-145) mmol/L Potassium (3.5-5.1) mmol/L Chloride (98-107) mmol/L Carbon Dioxide (21-32) mmol/L Anion Gap (3-11) BUN (7-18) mg/dl Creatinine (0.6-1.2) mg/dl Est Cr Clr Drug Dosing ml/min Est GFR ( Amer) ml/min Est GFR (Non-Af Amer) ml/min BUN/Creatinine Ratio (10-20) Glucose (70-99) mg/dl POC Glucose 298 H 358 H* 369 H* (70-99) mg/dl Osmolality (280-300) mOsm/kg Calcium (8.5-10.1) mg/dl Phosphorus (2.5-4.9) mg/dl Magnesium (1.8-2.4) mg/dl Total Bilirubin (0.2-1) mg/dl Direct Bilirubin (0-0.2) mg/dl AST (15-37) U/L ALT (12-78) U/L Alkaline Phosphatase (45-117) U/L Total Creatine Kinase (26-192) U/L Troponin I (0-0.045) ng/ml NT-Pro-B Natriuret Pep (0-1800) pg/ml Total Protein (6.4-8.2) gm/dl Albumin (3.4-5.0) gm/dl Globulin (2.5-4.0) gm/dl Albumin/Globulin Ratio (0.9-2) Lipase (73-393) U/L Urine Color Urine Appearance (Clear) Urine pH (4.5-7.5) Ur Specific [place] (1.000-1.030) Urine Protein (Negative) Urine Glucose (UA) (Negative) Urine Ketones (Negative) Urine Blood (Negative) Urine Nitrite (Negative) Urine Bilirubin (Negative) Urine Urobilinogen (Negative) Ur Leukocyte Esterase (Negative) Urine WBC (Auto) (0-5) /hpf Urine RBC (Auto) (0-4) /hpf U Hyaline Cast (Auto) (0-5) /lpf U Epithel Cells (Auto) (0-5) /lpf Urine Bacteria (Auto) (Negative) Urine Osmolality (500-800) mOsm/kg Ur Random Sodium mmol/L COVID-19 Eval Order SARS-CoV-2 (PCR) (Negative) 01/01/21 01/01/21 01/01/21 Range/Units 20:18 20:08 17:05 WBC (4.8-10.8) K/uL RBC (4.2-5.4) M/uL Hgb (12.0-16.0) g/dL Hct (37-47) % MCV (80-100) fL MCH (25-34) pg MCHC (32-36) g/dL RDW Std Deviation (36.4-46.3) fL RDW Coeff of Michael (11.5-14.5) % Plt Count (130-400) K/uL MPV (7.4-10.4) fL Immature Gran % (Auto) % Neut % (Auto) % Lymph % (Auto) % Drew % (Auto) % Eos % (Auto) % Baso % (Auto) % Neut # (Auto) (1.4-6.5) K/uL Lymph # (Auto) (1.2-3.4) K/uL Drew # (Auto) (0.11-0.59) K/uL Eos # (Auto) (0-0.5) K/uL Baso # (Auto) (0-0.2) K/uL Immature Gran # (Auto) (0.00-0.02) K/uL PT (9.0-12.0) Seconds INR (0.9-1.1) APTT (21.0-31.0) Seconds PTT Ratio Sodium (136-145) mmol/L Potassium (3.5-5.1) mmol/L Chloride (98-107) mmol/L Carbon Dioxide (21-32) mmol/L Anion Gap (3-11) BUN (7-18) mg/dl Creatinine (0.6-1.2) mg/dl Est Cr Clr Drug Dosing ml/min Est GFR ( Amer) ml/min Est GFR (Non-Af Amer) ml/min BUN/Creatinine Ratio (10-20) Glucose (70-99) mg/dl POC Glucose 364 H* 340 H* (70-99) mg/dl Osmolality 274 L (280-300) mOsm/kg Calcium (8.5-10.1) mg/dl Phosphorus (2.5-4.9) mg/dl Magnesium (1.8-2.4) mg/dl Total Bilirubin (0.2-1) mg/dl Direct Bilirubin (0-0.2) mg/dl AST (15-37) U/L ALT (12-78) U/L Alkaline Phosphatase (45-117) U/L Total Creatine Kinase (26-192) U/L Troponin I (0-0.045) ng/ml NT-Pro-B Natriuret Pep (0-1800) pg/ml Total Protein (6.4-8.2) gm/dl Albumin (3.4-5.0) gm/dl Globulin (2.5-4.0) gm/dl Albumin/Globulin Ratio (0.9-2) Lipase (73-393) U/L Urine Color Urine Appearance (Clear) Urine pH (4.5-7.5) Ur Specific [place] (1.000-1.030) Urine Protein (Negative) Urine Glucose (UA) (Negative) Urine Ketones (Negative) Urine Blood (Negative) Urine Nitrite (Negative) Urine Bilirubin (Negative) Urine Urobilinogen (Negative) Ur Leukocyte Esterase (Negative) Urine WBC (Auto) (0-5) /hpf Urine RBC (Auto) (0-4) /hpf U Hyaline Cast (Auto) (0-5) /lpf U Epithel Cells (Auto) (0-5) /lpf Urine Bacteria (Auto) (Negative) Urine Osmolality (500-800) mOsm/kg Ur Random Sodium mmol/L COVID-19 Eval Order SARS-CoV-2 (PCR) (Negative) 01/01/21 01/01/21 01/01/21 Range/Units 16:30 16:30 16:30 WBC (4.8-10.8) K/uL RBC (4.2-5.4) M/uL Hgb (12.0-16.0) g/dL Hct (37-47) % MCV (80-100) fL MCH (25-34) pg MCHC (32-36) g/dL RDW Std Deviation (36.4-46.3) fL RDW Coeff of Michael (11.5-14.5) % Plt Count (130-400) K/uL MPV (7.4-10.4) fL Immature Gran % (Auto) % Neut % (Auto) % Lymph % (Auto) % Drew % (Auto) % Eos % (Auto) % Baso % (Auto) % Neut # (Auto) (1.4-6.5) K/uL Lymph # (Auto) (1.2-3.4) K/uL Drew # (Auto) (0.11-0.59) K/uL Eos # (Auto) (0-0.5) K/uL Baso # (Auto) (0-0.2) K/uL Immature Gran # (Auto) (0.00-0.02) K/uL PT (9.0-12.0) Seconds INR (0.9-1.1) APTT (21.0-31.0) Seconds PTT Ratio Sodium (136-145) mmol/L Potassium (3.5-5.1) mmol/L Chloride (98-107) mmol/L Carbon Dioxide (21-32) mmol/L Anion Gap (3-11) BUN (7-18) mg/dl Creatinine (0.6-1.2) mg/dl Est Cr Clr Drug Dosing ml/min Est GFR ( Amer) ml/min Est GFR (Non-Af Amer) ml/min BUN/Creatinine Ratio (10-20) Glucose (70-99) mg/dl POC Glucose (70-99) mg/dl Osmolality (280-300) mOsm/kg Calcium (8.5-10.1) mg/dl Phosphorus (2.5-4.9) mg/dl Magnesium (1.8-2.4) mg/dl Total Bilirubin (0.2-1) mg/dl Direct Bilirubin (0-0.2) mg/dl AST (15-37) U/L ALT (12-78) U/L Alkaline Phosphatase (45-117) U/L Total Creatine Kinase (26-192) U/L Troponin I (0-0.045) ng/ml NT-Pro-B Natriuret Pep (0-1800) pg/ml Total Protein (6.4-8.2) gm/dl Albumin (3.4-5.0) gm/dl Globulin (2.5-4.0) gm/dl Albumin/Globulin Ratio (0.9-2) Lipase (73-393) U/L Urine Color Yellow Urine Appearance Clear (Clear) Urine pH 7.0 (4.5-7.5) Ur Specific [place] 1.008 (1.000-1.030) Urine Protein Trace H (Negative) Urine Glucose (UA) 1+ H (Negative) Urine Ketones Negative (Negative) Urine Blood 1+ H (Negative) Urine Nitrite Negative (Negative) Urine Bilirubin Negative (Negative) Urine Urobilinogen Negative (Negative) Ur Leukocyte Esterase Trace H (Negative) Urine WBC (Auto) 1-5 (0-5) /hpf Urine RBC (Auto) 0-4 (0-4) /hpf U Hyaline Cast (Auto) 0 (0-5) /lpf U Epithel Cells (Auto) 20-30 H (0-5) /lpf Urine Bacteria (Auto) Negative (Negative) Urine Osmolality 157 L (500-800) mOsm/kg Ur Random Sodium 27 mmol/L COVID-19 Eval Order SARS-CoV-2 (PCR) (Negative) 01/01/21 01/01/21 01/01/21 Range/Units 14:50 14:50 14:35 WBC (4.8-10.8) K/uL RBC (4.2-5.4) M/uL Hgb (12.0-16.0) g/dL Hct (37-47) % MCV (80-100) fL MCH (25-34) pg MCHC (32-36) g/dL RDW Std Deviation (36.4-46.3) fL RDW Coeff of Michael (11.5-14.5) % Plt Count (130-400) K/uL MPV (7.4-10.4) fL Immature Gran % (Auto) % Neut % (Auto) % Lymph % (Auto) % Drew % (Auto) % Eos % (Auto) % Baso % (Auto) % Neut # (Auto) (1.4-6.5) K/uL Lymph # (Auto) (1.2-3.4) K/uL Drew # (Auto) (0.11-0.59) K/uL Eos # (Auto) (0-0.5) K/uL Baso # (Auto) (0-0.2) K/uL Immature Gran # (Auto) (0.00-0.02) K/uL PT (9.0-12.0) Seconds INR (0.9-1.1) APTT (21.0-31.0) Seconds PTT Ratio Sodium (136-145) mmol/L Potassium (3.5-5.1) mmol/L Chloride (98-107) mmol/L Carbon Dioxide (21-32) mmol/L Anion Gap (3-11) BUN (7-18) mg/dl Creatinine (0.6-1.2) mg/dl Est Cr Clr Drug Dosing ml/min Est GFR ( Amer) ml/min Est GFR (Non-Af Amer) ml/min BUN/Creatinine Ratio (10-20) Glucose (70-99) mg/dl POC Glucose (70-99) mg/dl Osmolality (280-300) mOsm/kg Calcium (8.5-10.1) mg/dl Phosphorus (2.5-4.9) mg/dl Magnesium (1.8-2.4) mg/dl Total Bilirubin (0.2-1) mg/dl Direct Bilirubin (0-0.2) mg/dl AST (15-37) U/L ALT (12-78) U/L Alkaline Phosphatase (45-117) U/L Total Creatine Kinase (26-192) U/L Troponin I (0-0.045) ng/ml NT-Pro-B Natriuret Pep 6448 H (0-1800) pg/ml Total Protein (6.4-8.2) gm/dl Albumin (3.4-5.0) gm/dl Globulin (2.5-4.0) gm/dl Albumin/Globulin Ratio (0.9-2) Lipase (73-393) U/L Urine Color Urine Appearance (Clear) Urine pH (4.5-7.5) Ur Specific [place] (1.000-1.030) Urine Protein (Negative) Urine Glucose (UA) (Negative) Urine Ketones (Negative) Urine Blood (Negative) Urine Nitrite (Negative) Urine Bilirubin (Negative) Urine Urobilinogen (Negative) Ur Leukocyte Esterase (Negative) Urine WBC (Auto) (0-5) /hpf Urine RBC (Auto) (0-4) /hpf U Hyaline Cast (Auto) (0-5) /lpf U Epithel Cells (Auto) (0-5) /lpf Urine Bacteria (Auto) (Negative) Urine Osmolality (500-800) mOsm/kg Ur Random Sodium mmol/L COVID-19 Eval Order Covid19 at [facility] SARS-CoV-2 (PCR) NEGATIVE (Negative) 01/01/21 01/01/21 01/01/21 Range/Units 14:32 14:32 14:32 WBC 9.46 (4.8-10.8) K/uL RBC 3.83 L (4.2-5.4) M/uL Hgb 10.1 L (12.0-16.0) g/dL Hct 31.4 L (37-47) % MCV 82.0 (80-100) fL MCH 26.4 (25-34) pg MCHC 32.2 (32-36) g/dL RDW Std Deviation 44.5 (36.4-46.3) fL RDW Coeff of Michael 14.9 H (11.5-14.5) % Plt Count 286 (130-400) K/uL MPV 9.9 (7.4-10.4) fL Immature Gran % (Auto) 0.2 % Neut % (Auto) 83.8 % Lymph % (Auto) 8.9 % Drew % (Auto) 4.9 % Eos % (Auto) 1.8 % Baso % (Auto) 0.4 % Neut # (Auto) 7.93 H (1.4-6.5) K/uL Lymph # (Auto) 0.84 L (1.2-3.4) K/uL Drew # (Auto) 0.46 (0.11-0.59) K/uL Eos # (Auto) 0.17 (0-0.5) K/uL Baso # (Auto) 0.04 (0-0.2) K/uL Immature Gran # (Auto) 0.02 (0.00-0.02) K/uL PT 9.8 (9.0-12.0) Seconds INR 1.0 (0.9-1.1) APTT 30.8 (21.0-31.0) Seconds PTT Ratio 1.2 Sodium 124 L (136-145) mmol/L Potassium 4.2 (3.5-5.1) mmol/L Chloride 90 L (98-107) mmol/L Carbon Dioxide 25 (21-32) mmol/L Anion Gap 9.0 (3-11) BUN 30 H (7-18) mg/dl Creatinine 2.14 H (0.6-1.2) mg/dl Est Cr Clr Drug Dosing 24.8 ml/min Est GFR ( Amer) 25.3 ml/min Est GFR (Non-Af Amer) 21.8 ml/min BUN/Creatinine Ratio 13.9 (10-20) Glucose 243 H (70-99) mg/dl POC Glucose (70-99) mg/dl Osmolality (280-300) mOsm/kg Calcium 8.6 (8.5-10.1) mg/dl Phosphorus 3.9 (2.5-4.9) mg/dl Magnesium 2.6 H (1.8-2.4) mg/dl Total Bilirubin 0.3 (0.2-1) mg/dl Direct Bilirubin 0.1 (0-0.2) mg/dl AST 15 (15-37) U/L ALT 20 (12-78) U/L Alkaline Phosphatase 136 H (45-117) U/L Total Creatine Kinase 95 (26-192) U/L Troponin I < 0.015 (0-0.045) ng/ml NT-Pro-B Natriuret Pep (0-1800) pg/ml Total Protein 7.5 (6.4-8.2) gm/dl Albumin 3.3 L (3.4-5.0) gm/dl Globulin 4.2 H (2.5-4.0) gm/dl Albumin/Globulin Ratio 0.8 L (0.9-2) Lipase 156 (73-393) U/L Urine Color Urine Appearance (Clear) Urine pH (4.5-7.5) Ur Specific [place] (1.000-1.030) Urine Protein (Negative) Urine Glucose (UA) (Negative) Urine Ketones (Negative) Urine Blood (Negative) Urine Nitrite (Negative) Urine Bilirubin (Negative) Urine Urobilinogen (Negative) Ur Leukocyte Esterase (Negative) Urine WBC (Auto) (0-5) /hpf Urine RBC (Auto) (0-4) /hpf U Hyaline Cast (Auto) (0-5) /lpf U Epithel Cells (Auto) (0-5) /lpf Urine Bacteria (Auto) (Negative) Urine Osmolality (500-800) mOsm/kg Ur Random Sodium mmol/L COVID-19 Eval Order SARS-CoV-2 (PCR) (Negative) Diagnostic Findings Chest X-Ray 01/01/21 14:32 XR chest 1V portable CLINICAL HISTORY: Atypical chest pain COMPARISON STUDY: 12/25/2019 FINDINGS: The cardiac and mediastinal contours remain stable. There is no failure. There is no acute parenchymal consolidation. There are no significant pleural effusions. There is a stable left lateral basilar opacity likely representing a fat pad. There are old left-sided rib deformities.[ IMPRESSION: No active disease in the chest. ACT 112: Negative or not required by law. Electronically signed by: Elieser Cha M.D. 01/01/2021 3:05 PM Chest X-Ray 01/02/21 05:59 XR chest 1V portable CLINICAL HISTORY: COPD/Bronchitis/CHF COMPARISON STUDY: January 01, 2021 FINDINGS: No pneumothorax. Small bilateral pleural effusions are again seen, left more than right and not significantly changed since prior. Mild interval prominence of irregular opacities at the left retrocardiac region which could represent atelectasis or infiltrates. Cardiomediastinal silhouette is within normal limits in size. No significant pulmonary vascular congestion.. Aorta is calcified. Osseous structures: Diffuse osteopenia. Redemonstration of deformity is within left rib cage. Multiple lucencies are seen within subcutaneous tissue and might represent subcutaneous emphysema. IMPRESSION: 1. Mild interval worsening of opacities within left retrocardiac region which could represent atelectasis or infiltrates. 2. Small bilateral pleural effusion. 3. Questionable soft tissue lucencies which may represent prominent fat planes or subcutaneous emphysema. Please correlate above-mentioned findings with clinical presentation of subcutaneous crepitus. ACT 112: Negative or not required by law. The above report was generated using voice recognition software. It may contain grammatical, syntax or spelling errors. Electronically signed by: Kelly Fisher DO 01/02/2021 11:35 AM PG Care Time/CCT Total # of Minutes Spent Total Time Spent with Patient: Total time spent is greater than 50% in coordination of care (as documented) at patient's floor/unit and/or counseling patient: Coding Level of Care Code 83518 Subseq Hosp Care Lvl 3 Diagnoses COPD (chronic obstructive pulmonary disease) J44.9 COPD type: unspecified COPD Hyponatremia E87.1 Chronic kidney disease, stage 4 (severe) N18.4 Hypertension I10 Hypertension type: essential hypertension Afib I48.91 Atrial fibrillation type: unspecified DMII (diabetes mellitus, type 2) E11.69; Z79.4 Diabetes mellitus complication status: with other specified complication Diabetes mellitus termite control representative insulin use: with penitentiary use Diastolic CHF I50.33 Heart failure chronicity: acute on chronic GERD (gastroesophageal reflux disease) K21.9 Chronic indwelling Mccollum catheter Z97.8 (1) Diastolic CHF Heart failure chronicity: acute on chronic Qualified Code(s): I50.33 - Acute on chronic diastolic (congestive) heart failure (2) DMII (diabetes mellitus, type 2) Diabetes mellitus complication status: with other specified complication Diabetes mellitus termite control representative insulin use: with termite control representative use Qualified Code(s): E11.69 - Type 2 diabetes mellitus with other specified complication; 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
[2021-01-02] MEDS ORDERED: FUROSEMIDE 20 MG in SYRINGE 0 ML IV SCH (09:00)
[2021-01-02] MEDS ORDERED: INSULIN GLARGINE SOLOSTAR 100 UNITS/ML 3 ML PEN SQ SCH (09:00)
[2021-01-02] MEDS: AZITHROMYCIN 250 MG TAB PO SCH (09:09)
[2021-01-02] MEDS: GABAPENTIN 300 MG CAP PO SCH ×3 (09:09→22:29)
[2021-01-02] MEDS: PANTOprazole 40 MG TAB PO SCH ×2 (09:09→21:01)
[2021-01-02] MEDS: FLUTICASONE/VILANTEROL 100/25MCG 14 PUFFS/INHALER INH SCH (09:09)
[2021-01-02] MEDS: FUROSEMIDE 40 MG TAB PO SCH ×2 (09:11→17:29)
--- NOTE | 2021-01-02 11:37 | XRay Report ---
XR chest 1V portable CLINICAL HISTORY: COPD/Bronchitis/CHF COMPARISON STUDY: January 01, 2021 FINDINGS: No pneumothorax. Small bilateral pleural effusions are again seen, left more than right and not significantly changed since prior. Mild interval prominence of irregular opacities at the left retrocardiac region which could represent atelectasis or infiltrates. Cardiomediastinal silhouette is within normal limits in size. No significant pulmonary vascular congestion.. Aorta is calcified. Osseous structures: Diffuse osteopenia. Redemonstration of deformity is within left rib cage. Multiple lucencies are seen within subcutaneous tissue and might represent subcutaneous emphysema. IMPRESSION: 1. Mild interval worsening of opacities within left retrocardiac region which could represent atelec tasis or infiltrates. 2. Small bilateral pleural effusion. 3. Questionable soft tissue lucencies which may represent prominent fat planes or subcutaneous emph ysema. Please correlate above-mentioned findings with clinical presentation of subcutaneous crepitus. ACT 112: Negative or not required by law. The above report was generated using voice recognition software. It may contain grammatical, syntax o r spelling errors. Electronically signed by: Kelly Fisher DO 01/02/2021 11:35 AM
[2021-01-02] MEDS ORDERED: INSULIN HUMAN REGULAR PER UNIT 5 UNITS in SYRINGE 9.9 ML IV ONE (12:30)
[2021-01-02 12:52] LABS: BUN Creatinine Ratio 14.8 (10-20); Calcium 8.6 mg/dl (8.5-10.1); Est GFR (African American) 23.9 ml/min; Est GFR (Non-African American) 20.6 ml/min; Potassium 4.5 mmol/L (3.5-5.1)
[2021-01-02 13:03] LABS: Thyroid Stimulating Hormone 0.921 uIu/ml (0.300-4.500)
--- NOTE | 2021-01-02 13:19 | Pharmacy Report ---
Pharmacy Glycemic Short Note 2 - Date of Service January 02, 2021 - Glycemic Short BSG Results (Last 24 hours): 01/01/21 01/01/21 01/01/21 14:32 20:08 20:18 Glucose 243 H POC Glucose 340 H* 364 H* 01/01/21 01/01/21 01/02/21 21:13 23:52 03:55 Glucose POC Glucose 369 H* 358 H* 298 H 01/02/21 01/02/21 01/02/21 05:56 08:26 12:05 Glucose 230 H POC Glucose 220 H 312 H* 01/02/21 01/02/21 01/02/21 12:06 12:06 12:12 Glucose 274 H POC Glucose 317 H* 324 H* OUTPATIENT ANTIDIABETIC REGIMEN: * Lantus 10 units BID * A1c Pending ASSESSMENT: * Patient admitted with COPD exacerbation, received a dose of dexamethasone in the ED and continues on methylprednisolone 40 mg q6H (plan to switch to prednisone 40 mg tomorrow) with subsequent elevation in blood sugars * Utilized NPH ~.3 units/kg to help with steroid coverage in addition to weight based stress of two lantus. * Lunch BSG still elevated, however, breakfast was @0907, likely more of a peak with active insulin still on board. Did order a 5 unit IV bolus with lunch, novolog parameters are tightened to weight based stress of 3. * Will adjust the lantus scale for PM up to weight based stress of 3, anticipate steroid effect will go into tomorrow although plans to de-escalate tomorrow. PLAN FOR INPATIENT GLYCEMIC CONTROL: * Hold outpatient oral diabetes medications * Basal insulin * Lantus 13 units SQ this AM, 13 or 20 units this evening per scale * Bolus insulin * NovoLog per scale ACHS or Q6hrs while NPO * Goal Range: Low 110 mg/dL - High 140 mg/dL * Correction Factor: 20 mg/dL/unit * Nutritional / Prandial insulin per carb ratio of 1 unit per 7 grams CHO consumed PLAN FOR DISCHARGE: * tbd
--- NOTE | 2021-01-02 14:25 | XCELERA ---
[id number] \\[id number]
--- NOTE | 2021-01-02 17:34 | Ultrasound Report ---
ULTRASOUND BILATERAL LOWER EXTREMITY VENOUS CLINICAL HISTORY: Lower extremity edema. Atrial fibrillation. COMPARISON STUDY: Bilateral lower extremity venous ultrasound dated 11/10/2017 TECHNIQUE: Real-time, grayscale, and color Doppler sonography of the deep veins of the right and left lower extremity was performed from the inguinal crease to the calf. Compression and augmentation wer e utilized. FINDINGS: There is no sonographic evidence of deep venous thrombosis identified in the right or left lower extremity. The common femoral, superficial femoral, and popliteal veins are patent and normally compressible bilaterally. The greater saphenous vein and the profunda femoris vein at the junction w ith the common femoral vein are clear in both legs. The visualized calf veins are patent bilaterally. IMPRESSION: There is no sonographic evidence of deep venous thrombosis identified in the right or lef t lower extremity. ACT 112: Negative or not required by law. Electronically signed by: Piyush Fox M.D. 01/02/2021 5:32 PM
[2021-01-02] MEDS: dilTIAZem HCL 30 MG TAB PO SCH ×2 (18:34→21:02)
[2021-01-02 18:39] LABS: BUN Creatinine Ratio 14.8 (10-20); Calcium 8.7 mg/dl (8.5-10.1); Creatinine Clr Calc Pharmacy 20.9 ml/min; Est GFR (African American) 21.3 ml/min; Est GFR (Non-African American) 18.4 ml/min; Potassium 4.3 mmol/L (3.5-5.1)
[2021-01-02] MEDS: INSULIN GLARGINE SOLOSTAR 100 UNITS/ML 3 ML PEN SQ SCH (20:59)
[2021-01-03] MEDS: INSULIN ASPART 100 UNITS/ML 3 ML PEN SC SCH ×6 (00:10→21:16)
[2021-01-03] MEDS: HEPARIN SOD 5,000 UNIT/0.5 ML VIAL SQ SCH ×2 (05:11→12:54)
[2021-01-03 06:10] LABS: Hemoglobin 10.7 g/dL (12.0-16.0); Immature Granulocytes # (auto) 0.01 K/uL (0.00-0.02); Immature Granulocytes % (auto) 0.1 %; Lymphocytes # (auto) 0.38 K/uL (1.2-3.4); Lymphocytes % (auto) 4.9 %; Mean Corpuscular Hemoglobin 26.4 pg (25-34); Mean Corpuscular Hgb Conc 32.4 g/dL (32-36); Mean Corpuscular Volume 81.3 fL (80-100); Mean Platelet Volume 9.9 fL (7.4-10.4); Monocytes # (auto) 0.22 K/uL (0.11-0.59); Monocytes % (auto) 2.9 %; Neutrophils % (auto) 92.1 %; Platelet Count 292 K/uL (130-400); RDW Coefficient of Variation 14.8 % (11.5-14.5); RDW Standard Deviation 43.7 fL (36.4-46.3); Red Blood Count 4.06 M/uL (4.2-5.4); White Blood Count 7.71 K/uL (4.8-10.8)
[2021-01-03 06:30] LABS: Estimated Average Glucose 180 mg/dl; Hemoglobin A1C 7.9 % (4.5-5.6)
[2021-01-03 06:38] LABS: Alanine Aminotransferase 21 U/L (12-78); Albumin Level 3.4 gm/dl (3.4-5.0); Aspartate Aminotransferase 11 U/L (15-37); BUN Creatinine Ratio 18.4 (10-20); Bilirubin Direct < 0.1 mg/dl (0-0.2); Blood Urea Nitrogen 48 mg/dl (7-18); Calcium 8.9 mg/dl (8.5-10.1); Carbon Dioxide 20 mmol/L (21-32); Chloride 93 mmol/L (98-107); Creatinine Clr Calc Pharmacy 19.8 ml/min; Est GFR (African American) 20.1 ml/min; Est GFR (Non-African American) 17.3 ml/min; Glucose 220 mg/dl (70-99); Magnesium 2.5 mg/dl (1.8-2.4); Potassium 4.2 mmol/L (3.5-5.1); Sodium 124 mmol/L (136-145)
[2021-01-03 06:41] LABS: Alkaline Phosphatase 112 U/L (45-117); Bilirubin,Total 0.2 mg/dl (0.2-1); Total Protein 7.5 gm/dl (6.4-8.2)
[2021-01-03] MEDS: ALBUTEROL HFA 8 GM INHALER INH SCH ×4 (07:45→19:16)
[2021-01-03] MEDS: ACETAMINOPHEN 325 MG TAB PO PRN ×2 (08:05→19:54)
[2021-01-03] MEDS: ONDANSETRON INJ 2 MG/ML 2 ML VIAL IV PRN (08:05)
[2021-01-03] MEDS: FLUTICASONE/VILANTEROL 100/25MCG 14 PUFFS/INHALER INH SCH (08:10)
--- NOTE | 2021-01-03 08:51 | Hospitalist Progress Note ---
Date of Service January 03, 2021 Assessment & Plan (1) COPD (chronic obstructive pulmonary disease): Consistent with COPD exacerbation secondary to bronchitis * Methylprednisolone 40mg IV Q6H scheduled --> Prednisone 40mg daily on 01/03 (day 3) -- continue for total 5 days * --> BSGs elevated and may need SSI at d/c and will message pharmacy for further management * Azithromycin for abx (on day 3) -- complete 5 day course * Continued Combivent Q6H * Nebs Q8H scheduled --> change to prn * Guafenesin prn cough * Supplemental O2 as needed -- 97% on RA * Continue incentive spirometer * Fluid restriction also in place Added Breo daily -- consider continuing at discharge Continue to monitor Plans for d/c tomorrow (2) Hyponatremia: * Corrected for glucose is at patient baseline 127-130 on admission but Na low 123 this AM with glucose 230 * Also could have some chronic hyponatremia from her lorazepam. * hypervolemia hyponatremia -- extra Lasix this AM 20mg IV in addition to fluid restriction * BNP elevated to 6448 -- will have nursing get weights/i&o as well * Will check TSH (last normal 2017) -- wnl * Given her sob w exertion, will also obtain ECHO -- cardiology consulted. felt changes related to her COPD * Na still low but stable and patient asymptomatic * --> Nephrology consulted. Oral NaHCO3 650 TID will be added. Encourage protein supplements (3) Chronic kidney disease, stage 4 (severe): * Although last renal function on file was last year, her current numbers are markedly imrpoved * Cr 2.59 after diuresis and will keep diuretic regimen as it is for now lasix 40mg PO BID (of note was up to bumex 4mg BID in 2018 and could consider switching if needed). Benefit from f/u CHF clinic * Diuretics as above * Follow BMP (4) Hypertension: * May need better controlled as outpatient goal <140 * BP 149/68 * Lasix 40mg PO BID -- also got extra 20mg IV dose 01/02 * Added cardizem 30mg Q6H on 01/02 however HR low and cardiology with recs for amlodipine 2.5mg daily (can increase to 5 but caution giving LE edema and low chance for standing scale weights at d/c however she is willing to try) (5) Afib: * Currently rate controlled, patient was on coumadin ~2018, patient reports that they stopped this. * She is not on any anticoagulation at this time and likely related to her history of chronic falls and supratherapeutic INRs * --Recommendations for Eliquis 2.5mg BID at discharge. Discussed with son and patient and will start this prior to d/c (6) DMII (diabetes mellitus, type 2): * Continue with basal bolus insulin * - Goal <180 * Pharmacy on consult for glycemic management -- close monitoring required for her elevated blood sugars on steroids-- currently further elevated into the 300s * Ordered lantus 10 now and will message pharmacy about closer glucose control * --> A1c elevated to 7.9 from prior 7.0 * --> May need SSI at d/c especially short term while on prednisone for next 2 days (7) Diastolic CHF: * As above, BP control and follow diuresing overnight, goal 500-1000ml negative * - she is not on a BB, ws in the past * 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 * Cardizem --> Amlodipine as above * ECHO ordered as above (8) GERD (gastroesophageal reflux disease): * Continue Protonix BID (9) Chronic indwelling Mccollum catheter: * Patient reports that she has this changed every month and was done by home nurse this morning- Unsure why she has this, she reports because of her renal function and UTIs DVT Prophylaxis * SCDs * Heparin SQ --> plans for Eliquis 2.5mg BID *Will need f/u with podiatry at d/c for toenail trimming/care/monitoring Dispo: continued inpatient stay PT/OT consults ordered -- at functional baseline Plans for d/c home with son tomorrow Admission and Anticipated Discharge Date Admission Date: January 01, 2021 Subjective Patient evaluated this afternoon. Breathing much improved. Wheezing almost gone. Minimal cough which does cause some pain. Shortness of breath resolved. She is very concerned about elevated blood sugars this afternoon abd as discussed with son on phone in room, will have pharmacy make further adjustments given steroid necessity for current bronchitis/copd exacerbation given improvement with use. Will use SSI at discharge short term until sugars return to normal but may need increased basal insulin given bump in A1c from 7 to 7.9. This was also discussed with patient's son on the phone. They are very anxious for discharge and hopeful for tomorrow regardless. Home magy can check labs from home and they are willing to have CHF clinic follow up via telephone if available. No fever, chills, chest pain, abdominal pain, nausea, vomiting or dysuria reported. Review of Systems Review of Systems: All systems reviewed & are unremarkable except as noted in HPI & below Physical Exam Physical Exam: PHYSICAL EXAM: General: awake, alert, no apparent distress, sitting up in bed eating lunch Head: Normocephalic, atraumatic ENT: PERRL, EOMI, no pharyngeal exudate, mucous membranes moist Neuro: AAO x 3, speech clear and appropriate, strength intact bilaterally 5/5, sensation intact and equal all extremities and dermatomes, no pronator drift Resp: no tachypnea, no respiratory distress or accessory muscle use, 97% on RA. Faint expiratory wheezing posterior lung andrade Cardiac: irregularly irregular, skin warm dry, cap refill <3 seconds, peripheral pulses +2 no JVD, no murmur GI: NABS x 4 quadrants, soft, nontender to palpation, no rebound, guarding or tenderness : chronic Mccollum- draining dilute yellow urine, no pain, no CVA tenderness, Extremities: Normal inspection, no peripheral edema or erythema, calfs nontender to palpation, no edema, no pain Psych: Normal mood and affect Skin: no rash or erythema, no areas of breakdown on heels, mild redness to sacrum fungal appearance to toenails with claw toe to b/l 1st toe Results & Data Results & Data ([facility]) Vital Signs (Past 12 Hours) Vital Signs Temp Pulse Pulse Resp BP Pulse Ox Pulse Ox 01/03/21 08:02 36.5 C 61 16 125/57 L 95 01/03/21 07:45 60 18 98 01/03/21 02:52 66 96 01/03/21 01:20 66 96 01/02/21 23:11 69 97 01/02/21 22:44 36.7 C 65 18 127/68 96 01/02/21 21:33 74 94 01/02/21 20:57 82 121/73 Laboratory Results 01/03/21 01/03/21 01/03/21 Range/Units 08:19 06:00 06:00 WBC (4.8-10.8) K/uL RBC (4.2-5.4) M/uL Hgb (12.0-16.0) g/dL Hct (37-47) % MCV (80-100) fL MCH (25-34) pg MCHC (32-36) g/dL RDW Std Deviation (36.4-46.3) fL RDW Coeff of Michael (11.5-14.5) % Plt Count (130-400) K/uL MPV (7.4-10.4) fL Immature Gran % (Auto) % Neut % (Auto) % Lymph % (Auto) % Isabella % (Auto) % Eos % (Auto) % Baso % (Auto) % Neut # (Auto) (1.4-6.5) K/uL Lymph # (Auto) (1.2-3.4) K/uL Isabella # (Auto) (0.11-0.59) K/uL Eos # (Auto) (0-0.5) K/uL Baso # (Auto) (0-0.2) K/uL Immature Gran # (Auto) (0.00-0.02) K/uL Sodium (136-145) mmol/L Potassium (3.5-5.1) mmol/L Chloride (98-107) mmol/L Carbon Dioxide (21-32) mmol/L Anion Gap (3-11) BUN (7-18) mg/dl Creatinine (0.6-1.2) mg/dl Est Cr Clr Drug Dosing ml/min Est GFR ( Amer) ml/min Est GFR (Non-Af Amer) ml/min BUN/Creatinine Ratio (10-20) Glucose (70-99) mg/dl POC Glucose 226 H (70-99) mg/dl Estimat Average Glucose 180 mg/dl Hemoglobin A1c 7.9 H (4.5-5.6) % Calcium (8.5-10.1) mg/dl Magnesium (1.8-2.4) mg/dl Total Bilirubin (0.2-1) mg/dl Direct Bilirubin (0-0.2) mg/dl AST (15-37) U/L ALT (12-78) U/L Alkaline Phosphatase (45-117) U/L Total Protein (6.4-8.2) gm/dl Albumin (3.4-5.0) gm/dl 25-OH Vitamin D Total 19.8 L (30-100) ng/ml TSH (0.300-4.500) uIu/ml 01/03/21 01/03/21 01/03/21 Range/Units 06:00 06:00 03:55 WBC 7.71 (4.8-10.8) K/uL RBC 4.06 L (4.2-5.4) M/uL Hgb 10.7 L (12.0-16.0) g/dL Hct 33.0 L (37-47) % MCV 81.3 (80-100) fL MCH 26.4 (25-34) pg MCHC 32.4 (32-36) g/dL RDW Std Deviation 43.7 (36.4-46.3) fL RDW Coeff of Michael 14.8 H (11.5-14.5) % Plt Count 292 (130-400) K/uL MPV 9.9 (7.4-10.4) fL Immature Gran % (Auto) 0.1 % Neut % (Auto) 92.1 % Lymph % (Auto) 4.9 % Isabella % (Auto) 2.9 % Eos % (Auto) 0.0 % Baso % (Auto) 0.0 % Neut # (Auto) 7.10 H (1.4-6.5) K/uL Lymph # (Auto) 0.38 L (1.2-3.4) K/uL Isabella # (Auto) 0.22 (0.11-0.59) K/uL Eos # (Auto) 0.00 (0-0.5) K/uL Baso # (Auto) 0.00 (0-0.2) K/uL Immature Gran # (Auto) 0.01 (0.00-0.02) K/uL Sodium 124 L (136-145) mmol/L Potassium 4.2 (3.5-5.1) mmol/L Chloride 93 L (98-107) mmol/L Carbon Dioxide 20 L (21-32) mmol/L Anion Gap 11.0 (3-11) BUN 48 H (7-18) mg/dl Creatinine 2.59 H (0.6-1.2) mg/dl Est Cr Clr Drug Dosing 19.8 ml/min Est GFR ( Amer) 20.1 ml/min Est GFR (Non-Af Amer) 17.3 ml/min BUN/Creatinine Ratio 18.4 (10-20) Glucose 220 H (70-99) mg/dl POC Glucose 229 H (70-99) mg/dl Estimat Average Glucose mg/dl Hemoglobin A1c (4.5-5.6) % Calcium 8.9 (8.5-10.1) mg/dl Magnesium 2.5 H (1.8-2.4) mg/dl Total Bilirubin 0.2 (0.2-1) mg/dl Direct Bilirubin < 0.1 (0-0.2) mg/dl AST 11 L (15-37) U/L ALT 21 (12-78) U/L Alkaline Phosphatase 112 (45-117) U/L Total Protein 7.5 (6.4-8.2) gm/dl Albumin 3.4 (3.4-5.0) gm/dl 25-OH Vitamin D Total (30-100) ng/ml TSH (0.300-4.500) uIu/ml 01/03/21 01/02/21 01/02/21 Range/Units 00:07 20:47 18:02 WBC (4.8-10.8) K/uL RBC (4.2-5.4) M/uL Hgb (12.0-16.0) g/dL Hct (37-47) % MCV (80-100) fL MCH (25-34) pg MCHC (32-36) g/dL RDW Std Deviation (36.4-46.3) fL RDW Coeff of Michael (11.5-14.5) % Plt Count (130-400) K/uL MPV (7.4-10.4) fL Immature Gran % (Auto) % Neut % (Auto) % Lymph % (Auto) % Isabella % (Auto) % Eos % (Auto) % Baso % (Auto) % Neut # (Auto) (1.4-6.5) K/uL Lymph # (Auto) (1.2-3.4) K/uL Isabella # (Auto) (0.11-0.59) K/uL Eos # (Auto) (0-0.5) K/uL Baso # (Auto) (0-0.2) K/uL Immature Gran # (Auto) (0.00-0.02) K/uL Sodium 123 L (136-145) mmol/L Potassium 4.3 (3.5-5.1) mmol/L Chloride 92 L (98-107) mmol/L Carbon Dioxide 19 L (21-32) mmol/L Anion Gap 12.0 H (3-11) BUN 36 H (7-18) mg/dl Creatinine 2.46 H (0.6-1.2) mg/dl Est Cr Clr Drug Dosing 20.9 ml/min Est GFR ( Amer) 21.3 ml/min Est GFR (Non-Af Amer) 18.4 ml/min BUN/Creatinine Ratio 14.8 (10-20) Glucose 175 H (70-99) mg/dl POC Glucose 277 H 263 H (70-99) mg/dl Estimat Average Glucose mg/dl Hemoglobin A1c (4.5-5.6) % Calcium 8.7 (8.5-10.1) mg/dl Magnesium (1.8-2.4) mg/dl Total Bilirubin (0.2-1) mg/dl Direct Bilirubin (0-0.2) mg/dl AST (15-37) U/L ALT (12-78) U/L Alkaline Phosphatase (45-117) U/L Total Protein (6.4-8.2) gm/dl Albumin (3.4-5.0) gm/dl 25-OH Vitamin D Total (30-100) ng/ml TSH (0.300-4.500) uIu/ml 01/02/21 01/02/21 01/02/21 Range/Units 17:35 12:12 12:06 WBC (4.8-10.8) K/uL RBC (4.2-5.4) M/uL Hgb (12.0-16.0) g/dL Hct (37-47) % MCV (80-100) fL MCH (25-34) pg MCHC (32-36) g/dL RDW Std Deviation (36.4-46.3) fL RDW Coeff of Michael (11.5-14.5) % Plt Count (130-400) K/uL MPV (7.4-10.4) fL Immature Gran % (Auto) % Neut % (Auto) % Lymph % (Auto) % Isabella % (Auto) % Eos % (Auto) % Baso % (Auto) % Neut # (Auto) (1.4-6.5) K/uL Lymph # (Auto) (1.2-3.4) K/uL Isabella # (Auto) (0.11-0.59) K/uL Eos # (Auto) (0-0.5) K/uL Baso # (Auto) (0-0.2) K/uL Immature Gran # (Auto) (0.00-0.02) K/uL Sodium 124 L (136-145) mmol/L Potassium 4.5 (3.5-5.1) mmol/L Chloride 91 L (98-107) mmol/L Carbon Dioxide 20 L (21-32) mmol/L Anion Gap 13.0 H (3-11) BUN 33 H (7-18) mg/dl Creatinine 2.24 H (0.6-1.2) mg/dl Est Cr Clr Drug Dosing 23.0 ml/min Est GFR ( Amer) 23.9 ml/min Est GFR (Non-Af Amer) 20.6 ml/min BUN/Creatinine Ratio 14.8 (10-20) Glucose 274 H (70-99) mg/dl POC Glucose 158 H 324 H* (70-99) mg/dl Estimat Average Glucose mg/dl Hemoglobin A1c (4.5-5.6) % Calcium 8.6 (8.5-10.1) mg/dl Magnesium (1.8-2.4) mg/dl Total Bilirubin (0.2-1) mg/dl Direct Bilirubin (0-0.2) mg/dl AST (15-37) U/L ALT (12-78) U/L Alkaline Phosphatase (45-117) U/L Total Protein (6.4-8.2) gm/dl Albumin (3.4-5.0) gm/dl 25-OH Vitamin D Total (30-100) ng/ml TSH 0.921 (0.300-4.500) uIu/ml 01/02/21 01/02/21 01/01/21 Range/Units 12:06 12:05 21:13 WBC (4.8-10.8) K/uL RBC (4.2-5.4) M/uL Hgb (12.0-16.0) g/dL Hct (37-47) % MCV (80-100) fL MCH (25-34) pg MCHC (32-36) g/dL RDW Std Deviation (36.4-46.3) fL RDW Coeff of Michael (11.5-14.5) % Plt Count (130-400) K/uL MPV (7.4-10.4) fL Immature Gran % (Auto) % Neut % (Auto) % Lymph % (Auto) % Isabella % (Auto) % Eos % (Auto) % Baso % (Auto) % Neut # (Auto) (1.4-6.5) K/uL Lymph # (Auto) (1.2-3.4) K/uL Isabella # (Auto) (0.11-0.59) K/uL Eos # (Auto) (0-0.5) K/uL Baso # (Auto) (0-0.2) K/uL Immature Gran # (Auto) (0.00-0.02) K/uL Sodium (136-145) mmol/L Potassium (3.5-5.1) mmol/L Chloride (98-107) mmol/L Carbon Dioxide (21-32) mmol/L Anion Gap (3-11) BUN (7-18) mg/dl Creatinine (0.6-1.2) mg/dl Est Cr Clr Drug Dosing ml/min Est GFR ( Amer) ml/min Est GFR (Non-Af Amer) ml/min BUN/Creatinine Ratio (10-20) Glucose (70-99) mg/dl POC Glucose 317 H* 312 H* 369 H* (70-99) mg/dl Estimat Average Glucose mg/dl Hemoglobin A1c (4.5-5.6) % Calcium (8.5-10.1) mg/dl Magnesium (1.8-2.4) mg/dl Total Bilirubin (0.2-1) mg/dl Direct Bilirubin (0-0.2) mg/dl AST (15-37) U/L ALT (12-78) U/L Alkaline Phosphatase (45-117) U/L Total Protein (6.4-8.2) gm/dl Albumin (3.4-5.0) gm/dl 25-OH Vitamin D Total (30-100) ng/ml TSH (0.300-4.500) uIu/ml PG Care Time/CCT Total # of Minutes Spent Total Time Spent with Patient: Total time spent is greater than 50% in coordination of care (as documented) at patient's floor/unit and/or counseling patient: Coding Level of Care Code 13262 Subseq Hosp Care Lvl 3 Diagnoses COPD (chronic obstructive pulmonary disease) J44.9 COPD type: unspecified COPD Hyponatremia E87.1 Chronic kidney disease, stage 4 (severe) N18.4 Hypertension I10 Hypertension type: essential hypertension Afib I48.91 Atrial fibrillation type: unspecified DMII (diabetes mellitus, type 2) E11.69; Z79.4 Diabetes mellitus half-way insulin use: with half-way use Diabetes mellitus complication status: with other specified complication Diastolic CHF I50.33 Heart failure chronicity: acute on chronic GERD (gastroesophageal reflux disease) K21.9 Chronic indwelling Mccollum catheter Z97.8 (1) COPD (chronic obstructive pulmonary disease) COPD type: unspecified COPD Qualified Code(s): J44.9 - Chronic obstructive pulmonary disease, unspecified (2) Hypertension Hypertension type: essential hypertension Qualified Code(s): I10 - Essential (primary) hypertension (3) Afib Atrial fibrillation type: unspecified Qualified Code(s): I48.91 - Unspecified atrial fibrillation (4) DMII (diabetes mellitus, type 2) Diabetes mellitus manager terminal insulin use: with half-way use Diabetes mellitus complication status: with other specified complication Qualified Code(s): E11.69 - Type 2 diabetes mellitus with other specified complication; Z79.4 - roasterman (current) use of insulin (5) Diastolic CHF Heart failure chronicity: acute on chronic Qualified Code(s): I50.33 - Acute on chronic diastolic (congestive) heart failure
[2021-01-03] MEDS ORDERED: INSULIN HUMAN NPH SC SCH (09:00)
[2021-01-03] MEDS ORDERED: predniSONE 20 MG TAB PO SCH (09:00)
[2021-01-03] MEDS: AZITHROMYCIN 250 MG TAB PO SCH (09:12)
[2021-01-03] MEDS: dilTIAZem HCL 30 MG TAB PO SCH ×2 (09:12→12:54)
[2021-01-03] MEDS: INSULIN GLARGINE SOLOSTAR 100 UNITS/ML 3 ML PEN SQ SCH ×2 (09:12→21:17)
[2021-01-03] MEDS: FUROSEMIDE 40 MG TAB PO SCH ×2 (09:12→17:19)
[2021-01-03] MEDS: PANTOprazole 40 MG TAB PO SCH ×2 (09:13→21:18)
[2021-01-03] MEDS: GABAPENTIN 300 MG CAP PO SCH ×3 (09:13→21:18)
--- NOTE | 2021-01-03 09:14 | Electrocardiogram Report ---
Test Reason : Blood Pressure : / mmHG Vent. 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 rate has decreased BY 27 BPM Borderline Criteria for Inferior infarct no longer present Otherwise no significant change Confirmed by Ulices Tony ([id number]) on 01/03/2021 9:13:57 AM Referred By: REFERRED SELF Confirmed By:Ulices Tony
--- NOTE | 2021-01-03 09:37 | Cardiology Consultation ---
Date of Consultation January 03, 2021 Assessment & Plan (1) Cor pulmonale: (2) COPD exacerbation: (3) Diastolic CHF: (4) CKD (chronic kidney disease): (5) Permanent atrial fibrillation: Cardiology reassessment of patient with longstanding COPD, diastolic CHF, chronic renal insufficiency, and permanent atrial fibrillation. Clinically, she actually looks fairly good. She does have persistent bronchospasm and will require ongoing treatment for this (inhalers, prednisone, etc.). In regards to her heart failure: Although she appears hypervolemic by neck veins, her ideal volume status will be difficult to assess since she almost certainly has cor pulmonale (based on history and echo) and likely will have persistently elevated neck veins and possibly lower extremity edema at times. Given her significant renal insufficiency, would be reluctant to aggressively diurese due to concerns of potential renal failure. Weight seems unreliable (she is bedridden), I/O's suggest she is actively diuresing on her current regimen of furosemide 40 mg twice daily. Agree with nephrology service, keeping her slightly negative while monitoring creatinine is appropriate volume management status at this time. Of note, in the past she had required as much as 2 mg Bumex twice daily to diurese, so would not hesitate to increase furosemide or change to Bumex if there was evidence of volume retention going forward (particularly on prednisone). No immediate change in her diuretic regimen recommended. In regards to her atrial fibrillation: Carpenter rate for atrial fibrillation is around 80 bpm with the ability to respond during activity or physiologic stress. Although her rate was up to the 110 bpm range upon admission, this may have been a physiologically appropriate given some degree of respiratory distress. She was in the 70-80 bpm range yesterday, but is slower today (54 bpm on ECG) since initiation of diltiazem. Thus, it appears that diltiazem will excessively slow her heart rate, likely she could do without rate control, so would recommend discontinuing diltiazem. For BP control, could switch to amlodipine 2.5 mg daily, titrated up to 5 mg if necessary (would avoid higher doses since they can contribute to leg edema). It appears her warfarin was stopped in late 2018 or early 2018, around the time she went to a palliative care plan. Given the "nuisance factor" of checking INRs and her desire to limit medical interventions (for example, she is not inclined toward hemodialysis if her renal failure progresses), could consider apixaban 2.5 mg twice daily (given her degree of renal insufficiency) or simply accepting the thromboembolic risk as part of her desire to limit medical intervention. Will continue to follow along with you and hope to establish a baseline weight from which a sliding scale diuretic regimen can be recommended for home use. She states that although nonambulatory, she can get on the scale with assistance and would be willing to participate in heart failure clinic via phone upon hospital discharge (in person visits would be more difficult for her). History of Present Illness Attending Physician: Joe Conrad MD History of Present Illness 75-year-old woman with chronic diastolic CHF (on diuretics for years), significant chronic kidney disease, diabetes mellitus (on insulin), permanent atrial fibrillation, and multiple other medical problems who was admitted 01/01/2021 with worsening dyspnea and cough. Initial evaluation suggests COPD exacerbation with significant bronchospasm. However, given her history of heart failure, cardiology consultation obtained to assess her volume status, hemodynamics, and to reassess anticoagulation status for her permanent atrial fibrillation. Of note, she had been followed closely in heart failure clinic and by nephrology up until 2018, she was placed on palliative care at that time and did not have office visits for several years, due to improvement in her condition she has now inclined to accept some degree of medical intervention. At the time of my evaluation today, she was comfortable at rest without supplemental oxygen. Due to unspecified leg weakness she is nonambulatory. She denied any chest pain, subjective palpitations, lightheadedness, diaphoresis, or syncope. She does have chronic orthopnea and intermittent leg edema. Past medical history: coronary artery disease S/P NSTEMI treated with PCI with overlapping ELAINE to LCx in 11/2016, atrial fibrillation, diastolic CHF, insulin-dependent diabetes, hypertension, diabetic nephropathy/chronic kidney disease, hypertension, dyslipidemia, and peripheral artery disease. Prior cardiovascular studies: Cardiac catheterization (2016): Left main luminal irregularities? lad proximal to mid 50-60 percent diffuse stenosis, 99 percent stenosis in ostium of 1st very small diagonal (question culprit-too small for intervention)? circumflex focal 95 percent stenosis at the takeoff of OM1 with diffuse 70-80 percent in distal left PLB, om 1 50 percent? RCA 20-30 percent proximal PCI (11/2016): Right radial artery, overlapping 2.5 by 30 millimeter resolute ELAINE, overlapped with 2.25 x 22 resolute into distal circumflex Echo (2017): EF 50-55 percent, inferior, posterior, lateral hypokinesis, diastolic dysfunction, mild AI, aortic valve sclerosis, trace MR, trace TR Pharmacologic nuclear stress (2017): Small base to mid inferior and inferolateral infarct suggesting circumflex territory. No significant ischemic changes suggested. Low normal LV function. EF 51%. Wall motion appeared normal, however, rhythm was atrial fibrillation and therefore gated images were difficult. 24 Hour Holter (2017): Atrial fibrillation with an average rate of 92 bpm. Range 58-139 bpm. No pauses or AV block. Occasional PVCs and one couplet. Allergies Allergy/AdvReac Type Severity Reaction Status Date / Time Latex, Natural Rubber Allergy Mild Rash Verified 01/01/21 20:46 tramadol Allergy Unknown Unverified 01/01/21 17:54 nickel AdvReac Rash Verified 01/01/21 20:47 Home Medications Medication Instructions Recorded Confirmed Type acetaminophen [Tylenol Extra 500 - 1,000 mg PO Q6H PRN MDD MAX 12/25/19 01/01/21 History Strength] 6 TAB/24 HOURS Wheelchair (Manual or Powered) #1 ea 12/30/19 08/23/20 Rx nebulizers #1 ea 01/03/20 08/23/20 Rx insulin glargine 100 unit/mL (3 10 unit SUBCUT .COMPLEX #15 ml 01/31/20 01/01/21 Rx mL) subcutaneous pen blood sugar diagnostic #50 ea 03/20/20 08/23/20 Rx furosemide 40 mg tablet 40 mg PO BID #60 tab 10/22/20 01/01/21 Rx gabapentin 300 mg capsule 300 mg PO TID #270 cap 11/26/20 01/01/21 Rx lorazepam 0.5 mg tablet 0.5 mg PO Q4H PRN #30 tab 12/24/20 01/01/21 Rx promethazine 25 mg tablet 25 mg PO Q6H PRN #30 tab 12/24/20 01/01/21 Rx albuterol sulfate 2 inh INH QID PRN 01/01/21 01/01/21 History levalbuterol HCl 3 mg INHALATION UD 01/01/21 01/01/21 History omeprazole 20 mg PO BID 01/01/21 01/01/21 History rivaroxaban [Xarelto] 15 mg PO PM #30 tab 01/02/21 Rx Patient History Medical History A-fib AMI (acute myocardial infarction) Anemia ARF (acute renal failure) Bronchitis Chronic kidney disease COPD (chronic obstructive pulmonary disease) Diabetes Fall in home Fracture of right distal radius Fracture of right ulnar styloid Hypertension Hypoglycemia Hyponatremia Insulin overdose Left sided chest pain Narcotic-induced nausea and vomiting PNA (pneumonia) Renal insufficiency Shortness of breath UTI (urinary tract infection) Surgical History History of cataract surgery History of esophagogastroduodenoscopy (EGD) History of lung surgery Family History Unknown Diabetes Pancreatic cancer Lung cancer Coronary heart disease Breast cancer Other Family history non-contributory Denies family history of Ovarian cancer Prostate cancer Myocardial infarction Colorectal cancer Social History Smoking Status: Former smoker Hx Alcohol Use: No Hx Substance Use: No Preferred Language: Kyrgyz Communication Ability: Effective Beliefs That Will Affect Care: None marital status: Current Living Situation: Spouse and Family current occupational status: retired Feels Safe at Home: Yes Safety Concerns: Feels Safe At This Time Assistive Devices: None Physical Exam Physical Exam: Mildly obese elderly white female in no current distress. Afebrile. Normotensive. Pulse 60 bpm and irregular Skin: no ecchymoses or generalized lesions. HEENT: unremarkable. Neck: Jugular venous pulse to the angle of the jaw at 70 degrees, increased respiratory variation, no obvious carotid bruits. Lungs: Moderately decreased breath sounds with diffuse expiratory wheezing. No abdominal paradox, intercostal retraction, or nasal flaring. Cardiac: Faint heart tones (masked by lung sounds), irregular rhythm, no obvious murmur or gallop on difficult exam. Abdomen: benign. Extremities: no edema, lower extremity pulses not readily palpable, mildly delayed capillary refill (3 seconds). Neurologic: normal affect and conversation, nonfocal. Results & Data ([facility]) Vital Signs (Past 12 Hours) Vital Signs Temp Pulse Pulse Resp BP Pulse Ox Pulse Ox 01/03/21 08:02 97.7 F 61 16 125/57 L 95 01/03/21 07:45 60 18 98 01/03/21 02:52 66 96 01/03/21 01:20 66 96 01/02/21 23:11 69 97 01/02/21 22:44 98.1 F 65 18 127/68 96 Laboratory Results Hemoglobin 10.7 with normal white count and platelet count. Sodium 124, potassium 4.2, chloride 93, CO2 20, BUN 48, creatinine 2.59. Hemoglobin A1c 7.9%. proBNP on admission 6448. TSH normal. Troponin on admission negative. Diagnostic Findings Chest x-ray showed mildly prominent pulmonary vasculature with blunting of costophrenic angles, left basilar infiltrate/opacity. Venous Doppler showed no evidence of lower extremity DVT. ECG on admission showed atrial fibrillation with possible old anterior and inferior infarcts, unchanged compared with 12/25/2019. Repeat ECG today showed atrial fibrillation with slow ventricular response of 54 bpm, old anterior infarct, criteria for inferior infarct no longer present. Otherwise no significant change. Echocardiogram yesterday showed EF 50 to 55% with borderline global hypokinesis, evidence of right heart pressure overload and moderate pulmonary hypertension, moderately dilated inferior vena cava. Mild mccarty valvular regurgitation. Compared to 2017 study, right heart findings and pulmonary hypertension now appa rent. PG Care Time/CCT Total # of Minutes Spent Total Time Spent with Patient: Total time spent is greater than 50% in coordination of care (as documented) at patient's floor/unit and/or counseling patient: Coding Level of Care Code 39541 Initial Inpt Care Lvl 3 Diagnoses Cor pulmonale I27.81 COPD exacerbation J44.1 Diastolic CHF I50.33 Heart failure chronicity: acute on chronic CKD (chronic kidney disease) N18.9 Chronic kidney disease stage: unspecified stage Permanent atrial fibrillation I48.21 (1) Diastolic CHF Heart failure chronicity: acute on chronic Qualified Code(s): I50.33 - Acute on chronic diastolic (congestive) heart failure (2) CKD (chronic kidney disease) Chronic kidney disease stage: unspecified stage Qualified Code(s): N18.9 - Chronic kidney disease, unspecified
--- NOTE | 2021-01-03 10:16 | Nephrology Consultation ---
Date of Consultation January 03, 2021 Assessment & Plan (1) Hyponatremia: Acute on chronic. Appears relatively asymptomatic. Evidence of fluid retention noted. Diuretics being appropriately provided. Poor oral solute intake complicating correction. Uosm 157 on presentation. Free water restriction 1500 ml/day. Oral NaHCO3 650 TID will be added. Protein supplements to encourage oral solute intake. (2) Chronic kidney disease, stage 4 (severe): Due to DKD and history of DEMETRA. Kidney function stable. Goals of care reviewed. HD not to be considered. HCO3 replacement ordered for NAGMA. Medications appropriate for kidney dysfunction. (3) Hypertension: BP acceptable. Cardiology consult pending. No additional changes at this time. Goal is to maintain slightly negative fluid balance. History of Present Illness Reason for Consultation: Hyponatremia, CKD Requesting Physician: Joe Conrad MD Attending Physician: Joe Conrad MD History of Present Illness Mrs. Jesenia Chappell is a 75-year-old female with advanced CKD. Baseline creatinine has been ~2.5-2.8 mg/dL. Jesenia previously followed in the nephrology clinic with Dr. Oliver. In 2018, she transitioned away from regular follow up while moving toward more palliative goals of care. Jesenia was on hospice for a period of time but deferred the benefit when her health stabilized. She remains adamant that dialysis will not be considered in her plan of care. She reports that she has an advanced directive stating this. Her renal impairment is attributed to diabetic nephropathy. Medical history is also notable for coronary artery disease S/P NSTEMI treated with PCI with overlapping ELAINE to LCx in 11/2016, atrial fibrillation, diastolic CHF, insulin-dependent diabetes, hypertension, hypertension, dyslipidemia, and peripheral artery disease. Jesenia was admitted to [facility] from the ED on January 01 with acute COPD exacerbation. Hospital course complicated by hyponatremia. Allergies Allergy/AdvReac Type Severity Reaction Status Date / Time Latex, Natural Rubber Allergy Mild Rash Verified 01/01/21 20:46 tramadol Allergy Unknown Unverified 01/01/21 17:54 nickel AdvReac Rash Verified 01/01/21 20:47 Home Medications Medication Instructions Recorded Confirmed Type acetaminophen [Tylenol Extra 500 - 1,000 mg PO Q6H PRN MDD MAX 12/25/19 01/01/21 History Strength] 6 TAB/24 HOURS Wheelchair (Manual or Powered) #1 ea 05/29/20 01/21/21 Rx nebulizers #1 ea 01/03/20 08/23/20 Rx insulin glargine 100 unit/mL (3 10 unit SUBCUT .COMPLEX #15 ml 01/31/20 01/01/21 Rx mL) subcutaneous pen blood sugar diagnostic #50 ea 03/20/20 08/23/20 Rx furosemide 40 mg tablet 40 mg PO BID #60 tab 10/22/20 01/01/21 Rx gabapentin 300 mg capsule 300 mg PO TID #270 cap 11/26/20 01/01/21 Rx lorazepam 0.5 mg tablet 0.5 mg PO Q4H PRN #30 tab 12/24/20 01/01/21 Rx promethazine 25 mg tablet 25 mg PO Q6H PRN #30 tab 12/24/20 01/01/21 Rx albuterol sulfate 2 inh INH QID PRN 01/01/21 01/01/21 History levalbuterol HCl 3 mg INHALATION UD 01/01/21 01/01/21 History omeprazole 20 mg PO BID 01/01/21 01/01/21 History rivaroxaban [Xarelto] 15 mg PO PM #30 tab 01/02/21 Rx Patient History Medical History A-fib AMI (acute myocardial infarction) Anemia ARF (acute renal failure) Bronchitis Chronic kidney disease COPD (chronic obstructive pulmonary disease) Diabetes Fall in home Fracture of right distal radius Fracture of right ulnar styloid Hypertension Hypoglycemia Hyponatremia Insulin overdose Left sided chest pain Narcotic-induced nausea and vomiting PNA (pneumonia) Renal insufficiency Shortness of breath UTI (urinary tract infection) Surgical History History of cataract surgery History of esophagogastroduodenoscopy (EGD) History of lung surgery Family History Unknown Diabetes Pancreatic cancer Lung cancer Coronary heart disease Breast cancer Other Family history non-contributory Denies family history of Ovarian cancer Prostate cancer Myocardial infarction Colorectal cancer Social History Smoking Status: Former smoker Hx Alcohol Use: No Hx Substance Use: No Preferred Language: Lithuanian Communication Ability: Effective Beliefs That Will Affect Care: None marital status: Current Living Situation: Spouse and Family current occupational status: retired Feels Safe at Home: Yes Safety Concerns: Feels Safe At This Time Assistive Devices: None Review of Systems Review of Systems: All systems reviewed & are unremarkable except as noted in HPI & below Physical Exam Constitutional: well developed; no acute distress Eyes: + anicteric sclerae; no corneal abnormality ENMT: Mouth: no oral mucosal abnormality and oral mucous membranes not dry Neck: normal visual inspection and trachea midline Respiratory: no respiratory distress and does not use accessory muscles Auscultation: + rales and + wheezes Cardiovascular: Rate/Rhythm: + bradycardic Heart Sounds: normal S1, normal S2 and + murmur Vessels: + JVD Extremities: + edema Musculoskeletal: Extremities: no cyanosis and no clubbing Skin: normal turgor; no lesions Neurologic: Motor/Sensory: no tremor and no asterixis Psychiatric: Orientation: alert and oriented x 3 Results & Data ([facility]) Vital Signs (Past 12 Hours) Vital Signs Temp Pulse Pulse Resp BP Pulse Ox Pulse Ox 01/03/21 08:02 36.5 C 61 16 125/57 L 95 01/03/21 07:45 60 18 98 01/03/21 02:52 66 96 01/03/21 01:20 66 96 01/02/21 23:11 69 97 01/02/21 22:44 36.7 C 65 18 127/68 96 PG Care Time/CCT Total # of Minutes Spent Total Time Spent with Patient: Total time spent is greater than 50% in event coordinator rdination of care (as documented) at patient's floor/unit and/or counseling patient: Coding Level of Care Code 06855 Inpt Consult Level 4 Diagnoses Hyponatremia E87.1 Chronic kidney disease, stage 4 (severe) N18.4 Hypertension I10 Hypertension type: essential hypertension (1) Hypertension Hypertension type: essential hypertension Qualified Code(s): I10 - Essential (primary) hypertension
--- NOTE | 2021-01-03 10:59 | XRay Report ---
XR chest 1V portable CLINICAL HISTORY: F/u COMPARISON STUDY: Chest radiograph January 02, 2021. FINDINGS: Lung volumes are mildly diminished. There may be a small left pleural effusion. Left basila r opacity is again noted. There is no evidence for pulmonary edema. Cardiomediastinal silhouette is s table. Old left-sided rib fractures. IMPRESSION: Left basilar opacity which favors atelectasis although an infectious process could appea r similar. Possible small left pleural effusion. ACT 112: Negative or not required by law. Electronically signed by: Carlos Wang M.D. 01/03/2021 10:58 AM
[2021-01-03] MEDS: SODIUM BICARBONATE 650 MG TAB PO SCH ×3 (11:06→21:19)
[2021-01-03] MEDS ORDERED: INSULIN ASPART PER UNIT 10 UNITS in SYRINGE 0 ML SC STA (14:00)
[2021-01-03] MEDS ORDERED: INSULIN ASPART 100 UNITS/ML 3 ML PEN SC ONE (14:10)
--- NOTE | 2021-01-03 14:24 | Pharmacy Report ---
Pharmacy Glycemic Short Note 2 - Date of Service January 03, 2021 - Glycemic Short BSG Results (Last 24 hours): 01/02/21 01/02/21 01/02/21 17:35 18:02 20:47 Glucose 175 H POC Glucose 158 H 263 H 01/03/21 01/03/21 01/03/21 00:07 03:55 06:00 Glucose 220 H POC Glucose 277 H 229 H 01/03/21 01/03/21 01/03/21 08:19 12:19 12:20 Glucose POC Glucose 226 H 392 H* 366 H* OUTPATIENT ANTIDIABETIC REGIMEN: * Lantus 10 units BID * A1c Pending ASSESSMENT: 01/03/21: * BSGs have been persistently elevated while on steroids. * SoluMedrol 40mg q6h --> prednisone 40mg daily this morning. Pre-lunch BSG still markedly elevated (366). * Will consider increasing NPH dose tomorrow morning to better cover daily prednisone. 01/02 * Patient admitted with COPD exacerbation, received a dose of dexamethasone in the ED and continues on methylprednisolone 40 mg q6H (plan to switch to prednisone 40 mg tomorrow) with subsequent elevation in blood sugars * Utilized NPH ~.3 units/kg to help with steroid coverage in addition to weight based stress of two lantus. * Lunch BSG still elevated, however, breakfast was @0907, likely more of a peak with active insulin still on board. Did order a 5 unit IV bolus with lunch, novolog parameters are tightened to weight based stress of 3. * Will adjust the lantus scale for PM up to weight based stress of 3, anticipate steroid effect will go into tomorrow although plans to de-escalate tomorrow. PLAN FOR INPATIENT GLYCEMIC CONTROL: * Hold outpatient oral diabetes medications * Basal insulin * Lantus 13-20 units SQ BID, per scale * NPH 20 units SQ this morning * Bolus insulin * NovoLog per scale ACHS or Q6hrs while NPO, plus 0000 and 0400 until BSGs improve * Goal Range: Low 110 mg/dL - High 140 mg/dL * Correction Factor: 20 mg/dL/unit * Nutritional / Prandial insulin per carb ratio of 1 unit per 6 grams CHO consumed PLAN FOR DISCHARGE: * tbd * If patient is discharged on steroids (current plan appears to be 5 days of prednisone), she will likely require additional insulin.
[2021-01-03 15:46] LABS: BUN Creatinine Ratio 18.1 (10-20); Calcium 8.8 mg/dl (8.5-10.1); Creatinine Clr Calc Pharmacy 18.9 ml/min; Est GFR (African American) 18.6 ml/min; Potassium 4.3 mmol/L (3.5-5.1)
[2021-01-03] MEDS ORDERED: ERGOCALCIFEROL 50,000 UNITS 1250 MCG CAP PO SCH (16:00)
--- NOTE | 2021-01-03 16:22 | Pulmonary Consultation ---
Date of Consultation January 03, 2021 Assessment & Plan (1) Diastolic CHF: 75-year-old female with a past medical history of atrial fibrillation, diastolic heart failure and COPD presenting to the hospital due to shortness of breath. Pulmonary hypertension: I think this most likely represents WHO group 2 and 3 pulmonary hypertension related to her CHF/atrial fibrillation and COPD, respectively. I do not think that a right heart catheterization is indicated at this time as she is relatively asymptomatic and the results of the right heart cath would likely not alter her management and she is bedbound at baseline. Continue to treat her underlying diastolic heart failure with Lasix as you are doing. COPD exacerbation: Agree with prednisone at this time. Would recommend a taper by 10 mg every 1 to 2 days. Continue her current inhaler regimen. I discussed with the respiratory therapist. She had some trouble with her inhaler this morning. Azithromycin is reasonable to cover for atypical organisms. Follow-up PFTs can be considered as an outpatient. She is currently on room air and appears comfortable. Thank you for the consultation. Please call with questions. Heart failure chronicity: acute on chronic Qualified Code(s): I50.33 - Acute on chronic diastolic (congestive) heart failure (2) Cor pulmonale: (3) COPD exacerbation: History of Present Illness Reason for Consultation: Pulmonary hypertension seen on echocardiogram Attending Physician: Joe Conrad MD History of Present Illness 75-year-old female with a history of paroxysmal atrial fibrillation, diastolic heart failure, coronary artery disease, diabetes mellitus, CKD stage III and GERD who presented to the hospital on 01/01/2021 due to increasing shortness of breath that has been going on for a few weeks. Patient notes that her home health nurse will change her [place] and noticed that she was wheezing and coughing more. Patient was reluctant to go to the hospital. She is feeling much better and is close to her baseline. She is bedbound at baseline and is unable to walk. She notes that she has a history of pulmonary hypertension and is on Lasix therapy. Pulmonary was consulted for pulmonary hypertension noted on the echocardiogram. Cardiology is following her as well. She smoked for 34 years roughly half a pack per day. She quit 10 years ago. Allergies Allergy/AdvReac Type Severity Reaction Status Date / Time Latex, Natural Rubber Allergy Mild Rash Verified 01/01/21 20:46 tramadol Allergy Unknown Unverified 01/01/21 17:54 nickel AdvReac Rash Verified 01/01/21 20:47 Home Medications Medication Instructions Recorded Confirmed Type acetaminophen [Tylenol Extra 500 - 1,000 mg PO Q6H PRN MDD MAX 12/25/19 01/01/21 History Strength] 6 TAB/24 HOURS Wheelchair (Manual or Powered) #1 ea 12/30/19 08/23/20 Rx nebulizers #1 ea 01/03/20 08/23/20 Rx insulin glargine 100 unit/mL (3 10 unit SUBCUT .COMPLEX #15 ml 01/31/20 01/01/21 Rx mL) subcutaneous pen blood sugar diagnostic #50 ea 03/20/20 08/23/20 Rx furosemide 40 mg tablet 40 mg PO BID #60 tab 10/22/20 01/01/21 Rx gabapentin 300 mg capsule 300 mg PO TID #270 cap 11/26/20 01/01/21 Rx lorazepam 0.5 mg tablet 0.5 mg PO Q4H PRN #30 tab 12/24/20 01/01/21 Rx promethazine 25 mg tablet 25 mg PO Q6H PRN #30 tab 12/24/20 01/01/21 Rx albuterol sulfate 2 inh INH QID PRN 01/01/21 01/01/21 History levalbuterol HCl 3 mg INHALATION UD 01/01/21 01/01/21 History omeprazole 20 mg PO BID 01/01/21 01/01/21 History rivaroxaban [Xarelto] 15 mg PO PM #30 tab 01/02/21 Rx Patient History Medical History A-fib AMI (acute myocardial infarction) Anemia ARF (acute renal failure) Bronchitis Chronic kidney disease COPD (chronic obstructive pulmonary disease) Diabetes Fall in home Fracture of right distal radius Fracture of right ulnar styloid Hypertension Hypoglycemia Hyponatremia Insulin overdose Left sided chest pain Narcotic-induced nausea and vomiting PNA (pneumonia) Renal insufficiency Shortness of breath UTI (urinary tract infection) Surgical History History of cataract surgery History of esophagogastroduodenoscopy (EGD) History of lung surgery Family History Unknown Diabetes Pancreatic cancer Lung cancer Coronary heart disease Breast cancer Other Family history non-contributory Denies family history of Ovarian cancer Prostate cancer Myocardial infarction Colorectal cancer Social History Smoking Status: Former smoker Hx Alcohol Use: No Hx Substance Use: No Preferred Language: Setswana Communication Ability: Effective Beliefs That Will Affect Care: None marital status: Current Living Situation: Spouse and Family current occupational status: retired Feels Safe at Home: Yes Safety Concerns: Feels Safe At This Time Assistive Devices: None Review of Systems Review of Systems: All systems reviewed & are unremarkable except as noted in HPI & below Physical Exam Constitutional: + frail appearing Eyes: PERRL, conjunctivae normal, anicteric sclerae Respiratory: Mild expiratory wheezing with prolonged phase of exhalation. No significant tachypnea. Cardiovascular: Rate/Rhythm: regular rate Heart Sounds: normal S1 and normal S2 Vessels: + JVD Extremities: + edema Gastrointestinal (Abdomen): normal bowel sounds, soft, nontender, no hepatosplenomegaly Neurologic: PERRL, EOMI, accommodation nl, no face palsy, no dysarthria Psychiatric: A+Ox3, euthymic affect Results & Data Results & Data ([facility]) Vital Signs (Past 12 Hours) Vital Signs Temp Pulse Pulse Resp BP Pulse Ox 01/03/21 15:51 59 L 16 97 01/03/21 13:00 67 149/68 H 01/03/21 11:08 62 16 97 01/03/21 08:02 97.7 F 61 16 125/57 L 95 01/03/21 07:45 60 18 98 chest x-ray completed today demonstrates a small left effusion and left atelectasis. Lower extremity Dopplers performed 01/02/2021 without evidence of DVT. Echo from 01/02/2021 with elevated RVSP of 50 to 60 mmHg. RV overload was noted. EF of 50 to 55%. Borderline global hypokinesis of the left ventricle. PFTs completed in 2008 demonstrated moderate obstructive ventilatory defect with an FEV1 of 76% predicted. There was a 16% bronchodilator response at that time to albuterol. PG Care Time/CCT Total # of Minutes Spent Total Time Spent with Patient: Total time spent is greater than 50% in coordination of care (as documented) at patient's floor/unit and/or counseling patient: Coding Level of Care Code 30811 Inpt Consult Level 4 Diagnoses Diastolic CHF I50.33 Heart failure chronicity: acute on chronic Cor pulmonale I27.81 COPD exacerbation J44.1
[2021-01-03] MEDS: APIXABAN 2.5 MG TAB PO SCH (21:25)
[2021-01-03 21:40] LABS: BUN Creatinine Ratio 18.3 (10-20); Calcium 8.7 mg/dl (8.5-10.1); Creatinine Clr Calc Pharmacy 16.4 ml/min; Est GFR (African American) 15.6 ml/min; Est GFR (Non-African American) 13.5 ml/min; Potassium 4.3 mmol/L (3.5-5.1)
[2021-01-03] MEDS ORDERED: FUROSEMIDE 20 MG in SYRINGE 0 ML IV ONE (22:52)
[2021-01-03] MEDS ORDERED: BUMETANIDE 1 MG in SYRINGE 0 ML IV ONE (23:15)
[2021-01-04] MEDS: INSULIN ASPART 100 UNITS/ML 3 ML PEN SC SCH ×4 (00:33→13:23)
[2021-01-04 06:48] LABS: Hemoglobin 10.1 g/dL (12.0-16.0); Immature Granulocytes # (auto) 0.01 K/uL (0.00-0.02); Immature Granulocytes % (auto) 0.1 %; Lymphocytes # (auto) 0.59 K/uL (1.2-3.4); Lymphocytes % (auto) 7.1 %; Mean Corpuscular Hemoglobin 26.6 pg (25-34); Mean Corpuscular Hgb Conc 32.6 g/dL (32-36); Mean Corpuscular Volume 81.8 fL (80-100); Mean Platelet Volume 9.9 fL (7.4-10.4); Monocytes # (auto) 0.51 K/uL (0.11-0.59); Monocytes % (auto) 6.1 %; Neutrophils % (auto) 86.7 %; Platelet Count 280 K/uL (130-400); RDW Standard Deviation 44.8 fL (36.4-46.3); Red Blood Count 3.79 M/uL (4.2-5.4); White Blood Count 8.31 K/uL (4.8-10.8)
[2021-01-04] MEDS: ALBUTEROL HFA 8 GM INHALER INH SCH ×3 (07:05→15:19)
[2021-01-04 07:18] LABS: BUN Creatinine Ratio 19.1 (10-20); Calcium 8.5 mg/dl (8.5-10.1); Creatinine Clr Calc Pharmacy 17.8 ml/min; Est GFR (Non-African American) 14.7 ml/min; Magnesium 2.7 mg/dl (1.8-2.4); Potassium 3.9 mmol/L (3.5-5.1)
--- NOTE | 2021-01-04 07:27 | Hospitalist Progress Note ---
Date of Service January 04, 2021 Assessment & Plan Admission and Anticipated Discharge Date Admission Date: January 01, 2021 Results & Data Results & Data ([facility]) Vital Signs (Past 12 Hours) Vital Signs Temp Pulse Resp BP Pulse Ox 01/04/21 07:07 60 16 94 01/03/21 22:28 36.5 C 65 18 112/56 L 96 Laboratory Results 01/04/21 01/04/21 01/04/21 Range/Units 06:14 06:14 06:14 WBC 8.31 (4.8-10.8) K/uL RBC 3.79 L (4.2-5.4) M/uL Hgb 10.1 L (12.0-16.0) g/dL Hct 31.0 L (37-47) % MCV 81.8 (80-100) fL MCH 26.6 (25-34) pg MCHC 32.6 (32-36) g/dL RDW Std Deviation 44.8 (36.4-46.3) fL RDW Coeff of Michael 15.0 H (11.5-14.5) % Plt Count 280 (130-400) K/uL MPV 9.9 (7.4-10.4) fL Immature Gran % (Auto) 0.1 % Neut % (Auto) 86.7 % Lymph % (Auto) 7.1 % [place] % (Auto) 6.1 % Eos % (Auto) 0.0 % Baso % (Auto) 0.0 % Neut # (Auto) 7.20 H (1.4-6.5) K/uL Lymph # (Auto) 0.59 L (1.2-3.4) K/uL [place] # (Auto) 0.51 (0.11-0.59) K/uL Eos # (Auto) 0.00 (0-0.5) K/uL Baso # (Auto) 0.00 (0-0.2) K/uL Immature Gran # (Auto) 0.01 (0.00-0.02) K/uL Sodium 126 L (136-145) mmol/L Potassium 3.9 (3.5-5.1) mmol/L Chloride 94 L (98-107) mmol/L Carbon Dioxide 21 (21-32) mmol/L Anion Gap 11.0 (3-11) BUN 57 H (7-18) mg/dl Creatinine 2.97 H (0.6-1.2) mg/dl Est Cr Clr Drug Dosing 17.8 ml/min Est GFR ( Amer) 17.0 ml/min Est GFR (Non-Af Amer) 14.7 ml/min BUN/Creatinine Ratio 19.1 (10-20) Glucose 158 H (70-99) mg/dl POC Glucose (70-99) mg/dl Calcium 8.5 (8.5-10.1) mg/dl Magnesium 2.7 H (1.8-2.4) mg/dl 25-OH Vitamin D Total (30-100) ng/ml PTH Intact Pending 01/04/21 01/03/21 01/03/21 Range/Units 04:13 23:55 21:10 WBC (4.8-10.8) K/uL RBC (4.2-5.4) M/uL Hgb (12.0-16.0) g/dL Hct (37-47) % MCV (80-100) fL MCH (25-34) pg MCHC (32-36) g/dL RDW Std Deviation (36.4-46.3) fL RDW Coeff of Michael (11.5-14.5) % Plt Count (130-400) K/uL MPV (7.4-10.4) fL Immature Gran % (Auto) % Neut % (Auto) % Lymph % (Auto) % [place] % (Auto) % Eos % (Auto) % Baso % (Auto) % Neut # (Auto) (1.4-6.5) K/uL Lymph # (Auto) (1.2-3.4) K/uL [place] # (Auto) (0.11-0.59) K/uL Eos # (Auto) (0-0.5) K/uL Baso # (Auto) (0-0.2) K/uL Immature Gran # (Auto) (0.00-0.02) K/uL Sodium 122 L (136-145) mmol/L Potassium 4.3 (3.5-5.1) mmol/L Chloride 90 L (98-107) mmol/L Carbon Dioxide 20 L (21-32) mmol/L Anion Gap 12.0 H (3-11) BUN 58 H (7-18) mg/dl Creatinine 3.18 H D (0.6-1.2) mg/dl Est Cr Clr Drug Dosing 16.4 ml/min Est GFR ( Amer) 15.6 ml/min Est GFR (Non-Af Amer) 13.5 ml/min BUN/Creatinine Ratio 18.3 (10-20) Glucose 213 H (70-99) mg/dl POC Glucose 185 H 189 H (70-99) mg/dl Calcium 8.7 (8.5-10.1) mg/dl Magnesium (1.8-2.4) mg/dl 25-OH Vitamin D Total (30-100) ng/ml PTH Intact 01/03/21 01/03/21 01/03/21 Range/Units 20:34 17:21 14:58 WBC (4.8-10.8) K/uL RBC (4.2-5.4) M/uL Hgb (12.0-16.0) g/dL Hct (37-47) % MCV (80-100) fL MCH (25-34) pg MCHC (32-36) g/dL RDW Std Deviation (36.4-46.3) fL RDW Coeff of Michael (11.5-14.5) % Plt Count (130-400) K/uL MPV (7.4-10.4) fL Immature Gran % (Auto) % Neut % (Auto) % Lymph % (Auto) % [place] % (Auto) % Eos % (Auto) % Baso % (Auto) % Neut # (Auto) (1.4-6.5) K/uL Lymph # (Auto) (1.2-3.4) K/uL [place] # (Auto) (0.11-0.59) K/uL Eos # (Auto) (0-0.5) K/uL Baso # (Auto) (0-0.2) K/uL Immature Gran # (Auto) (0.00-0.02) K/uL Sodium 124 L (136-145) mmol/L Potassium 4.3 (3.5-5.1) mmol/L Chloride 92 L (98-107) mmol/L Carbon Dioxide 19 L (21-32) mmol/L Anion Gap 13.0 H (3-11) BUN 50 H (7-18) mg/dl Creatinine 2.76 H (0.6-1.2) mg/dl Est Cr Clr Drug Dosing 18.9 ml/min Est GFR ( Amer) 18.6 ml/min Est GFR (Non-Af Amer) 16.0 ml/min BUN/Creatinine Ratio 18.1 (10-20) Glucose 275 H (70-99) mg/dl POC Glucose 258 H 209 H (70-99) mg/dl Calcium 8.8 (8.5-10.1) mg/dl Magnesium (1.8-2.4) mg/dl 25-OH Vitamin D Total (30-100) ng/ml PTH Intact 01/03/21 01/03/21 01/03/21 Range/Units 12:20 12:19 08:19 WBC (4.8-10.8) K/uL RBC (4.2-5.4) M/uL Hgb (12.0-16.0) g/dL Hct (37-47) % MCV (80-100) fL MCH (25-34) pg MCHC (32-36) g/dL RDW Std Deviation (36.4-46.3) fL RDW Coeff of Michael (11.5-14.5) % Plt Count (130-400) K/uL MPV (7.4-10.4) fL Immature Gran % (Auto) % Neut % (Auto) % Lymph % (Auto) % [place] % (Auto) % Eos % (Auto) % Baso % (Auto) % Neut # (Auto) (1.4-6.5) K/uL Lymph # (Auto) (1.2-3.4) K/uL [place] # (Auto) (0.11-0.59) K/uL Eos # (Auto) (0-0.5) K/uL Baso # (Auto) (0-0.2) K/uL Immature Gran # (Auto) (0.00-0.02) K/uL Sodium (136-145) mmol/L Potassium (3.5-5.1) mmol/L Chloride (98-107) mmol/L Carbon Dioxide (21-32) mmol/L Anion Gap (3-11) BUN (7-18) mg/dl Creatinine (0.6-1.2) mg/dl Est Cr Clr Drug Dosing ml/min Est GFR ( Amer) ml/min Est GFR (Non-Af Amer) ml/min BUN/Creatinine Ratio (10-20) Glucose (70-99) mg/dl POC Glucose 366 H* 392 H* 226 H (70-99) mg/dl Calcium (8.5-10.1) mg/dl Magnesium (1.8-2.4) mg/dl 25-OH Vitamin D Total (30-100) ng/ml PTH Intact 01/03/21 Range/Units 06:00 WBC (4.8-10.8) K/uL RBC (4.2-5.4) M/uL Hgb (12.0-16.0) g/dL Hct (37-47) % MCV (80-100) fL MCH (25-34) pg MCHC (32-36) g/dL RDW Std Deviation (36.4-46.3) fL RDW Coeff of Michael (11.5-14.5) % Plt Count (130-400) K/uL MPV (7.4-10.4) fL Immature Gran % (Auto) % Neut % (Auto) % Lymph % (Auto) % [place] % (Auto) % Eos % (Auto) % Baso % (Auto) % Neut # (Auto) (1.4-6.5) K/uL Lymph # (Auto) (1.2-3.4) K/uL [place] # (Auto) (0.11-0.59) K/uL Eos # (Auto) (0-0.5) K/uL Baso # (Auto) (0-0.2) K/uL Immature Gran # (Auto) (0.00-0.02) K/uL Sodium (136-145) mmol/L Potassium (3.5-5.1) mmol/L Chloride (98-107) mmol/L Carbon Dioxide (21-32) mmol/L Anion Gap (3-11) BUN (7-18) mg/dl Creatinine (0.6-1.2) mg/dl Est Cr Clr Drug Dosing ml/min Est GFR ( Amer) ml/min Est GFR (Non-Af Amer) ml/min BUN/Creatinine Ratio (10-20) Glucose (70-99) mg/dl POC Glucose (70-99) mg/dl Calcium (8.5-10.1) mg/dl Magnesium (1.8-2.4) mg/dl 25-OH Vitamin D Total 19.8 L (30-100) ng/ml PTH Intact PG Care Time/CCT Total # of Minutes Spent Total Time Spent with Patient: Total time spent is greater than 50% in coordination of care (as documented) at patient's floor/unit and/or counseling patient: Coding
--- NOTE | 2021-01-04 07:46 | Pharmacy Report ---
Pharmacy Glycemic Short Note 2 - Date of Service January 04, 2021 - Glycemic Short BSG Results (Last 24 hours): 01/03/21 01/03/21 01/03/21 08:19 12:19 12:20 Glucose POC Glucose 226 H 392 H* 366 H* 01/03/21 01/03/21 01/03/21 14:58 17:21 20:34 Glucose 275 H POC Glucose 209 H 258 H 01/03/21 01/03/21 01/04/21 21:10 23:55 04:13 Glucose 213 H POC Glucose 189 H 185 H 01/04/21 06:14 Glucose 158 H POC Glucose OUTPATIENT ANTIDIABETIC REGIMEN: * Lantus 10 units BID * A1c Pending ASSESSMENT: 01/04/21: * Unfortunately the reduction in steroids did not decrease insulin needs as much as anticipated yesterday. * Lunch --> dinner BSGs 324 --> 158 on 01/02, so yesterday I was hesitant to be too aggressive with the significant reduction in steroid. * Afternoon labs starting to look indicative of DKA (AG 13, bicarb 19). * Lantus increased last night and Novolog parameters tightened to more aggressively improve glycemic control. * NPH dose increased this morning significantly and will continue tight Novolog coverage to ensure that BSGs do not rise again, in preparation for discharge today. 01/03 * BSGs have been persistently elevated while on steroids. * SoluMedrol 40mg q6h --> prednisone 40mg daily this morning. Pre-lunch BSG still markedly elevated (366). * Will consider increasing NPH dose tomorrow morning to better cover daily prednisone. 01/02 * Patient admitted with COPD exacerbation, received a dose of dexamethasone in the ED and continues on methylprednisolone 40 mg q6H (plan to switch to prednisone 40 mg tomorrow) with subsequent elevation in blood sugars * Utilized NPH ~.3 units/kg to help with steroid coverage in addition to weight based stress of two lantus. * Lunch BSG still elevated, however, breakfast was @0907, likely more of a peak with active insulin still on board. Did order a 5 unit IV bolus with lunch, novolog parameters are tightened to weight based stress of 3. * Will adjust the lantus scale for PM up to weight based stress of 3, anticipate steroid effect will go into tomorrow although plans to de-escalate tomorrow. PLAN FOR INPATIENT GLYCEMIC CONTROL: * Hold outpatient oral diabetes medications * Basal insulin * Lantus 15-25 units SQ BID, per scale * NPH 25 units SQ this morning (for prednisone 30mg) * Bolus insulin * NovoLog per scale ACHS or Q6hrs while NPO, plus 0000 and 0400 until BSGs improve * Goal Range: Low 110 mg/dL - High 140 mg/dL * Correction Factor: 12 mg/dL/unit * Nutritional / Prandial insulin per carb ratio of 1 unit per 4 grams CHO consumed PLAN FOR DISCHARGE: * Plan is for patient to discharge on a prednisone taper (40mg daily; reduce by 10mg every 1-2 days). * Recommend NPH qAM (at the time of prednisone administration) to help cover steroid-induced hyperglycemia. * Prednisone 40mg --> administer 35 units of NPH * Prednisone 30mg --> administer 25 units of NPH * Prednisone 20mg --> administer 15 units of NPH * Prednisone 10mg --> administer 10 units of NPH * Recommend high-dose SSI for additional coverage (patient's son is willing/able to help with this). * Blood Sugar 70-150 administer 0 units * Blood Sugar 151-200 administer 3 units * Blood Sugar 201-250 administer 5 units * Blood Sugar 251-300 administer 7 units * Blood Sugar 301-350 administer 9 units * Blood Sugar 351-400 administer 11 units * Blood Sugar >400 administer 13 units and call MD * Recommend covering with SSI ~4 x daily ([facility]) while on high dose steroids. May be able to reduce the frequency as steroid tapers? If BSGs are fairly well-controlled with lower prednisone doses, may be able to use SSI with breakfast/dinner? Continue ACHS if BSGs remain elevated. * Patient should continue to take her Lantus. It's probably easiest for patient to resume her home dose of Lantus 10 units BID, rather than also try to adjust that at home as steroid tapers. * Would recommend being mindful of carb intake while on steroids, as steroids have their most profound effects on post-prandial blood sugars. * A1c: 7.9%, indicates adequate glycemic control on current outpatient regimen. Goal A1c for 75yo patient with comorbidities is probably a bit closer to 7.5%. Expect that patient may continue on current home regimen after steroids are completely discontinued, without the need for further additional insulin. If patient is eventually placed on chronic, ongoing steroids, I would expect that she will require some adjustments to her insulin regimen more long-term. Recommend close f/u with PCP/outpt providers after discharge.
[2021-01-04] MEDS ORDERED: predniSONE 10 MG TABLET PO SCH (09:00)
[2021-01-04] MEDS ORDERED: INSULIN HUMAN NPH SC SCH ×2 (09:00)
[2021-01-04] MEDS ORDERED: BUMETANIDE 1 MG TAB PO SCH (09:00)
[2021-01-04] MEDS ORDERED: amLODIPine BESYLATE 5 MG TAB PO SCH (09:00)
[2021-01-04] MEDS ORDERED: CALCITRIOL 0.25 MCG CAPSULE PO SCH (09:00)
[2021-01-04] MEDS: INSULIN GLARGINE SOLOSTAR 100 UNITS/ML 3 ML PEN SQ SCH (09:12)
[2021-01-04] MEDS: FLUTICASONE/VILANTEROL 100/25MCG 14 PUFFS/INHALER INH SCH (09:16)
[2021-01-04] MEDS: GABAPENTIN 300 MG CAP PO SCH ×2 (09:17→13:28)
[2021-01-04] MEDS: APIXABAN 2.5 MG TAB PO SCH (09:17)
[2021-01-04] MEDS: AZITHROMYCIN 250 MG TAB PO SCH (09:17)
[2021-01-04] MEDS: SODIUM BICARBONATE 650 MG TAB PO SCH ×2 (09:17→13:28)
[2021-01-04] MEDS: PANTOprazole 40 MG TAB PO SCH (09:18)
--- NOTE | 2021-01-04 12:37 | Discharge Summary ---
Date of Service January 04, 2021 Admission HPI Per Admitting Provider 75 YOF with past medical with HFpEF, CAD with stent, paroxysmal afib(not on anticoagulation), chronic Hodges catheter (changed out every month), DMII (on insulin), chronic hyponatremia, CKD III, GERD, lacunar cva's, chronic bed bound that gets around with wheel chair, history of decubitus to heels and buttocks. Patient comes to the emergency room today for increase in dyspnea and cough that has been going on for the last month, she was brought in by EMS after her home health nurse was there to change her hodges catheter called her PCP to let her know that she was wheezing and coughing allot. Her cough is minimally productive with she reports clear secretions, she has also increased her use of nebulizers at home to 3-4 times per day and gets some relief for about 4-6 hours, she is not on oxygen at home and is not on any in the EMD. In the ED she had routine labs that revealed hyponatremia, DEMETRA, and elevated BNP, she also had a CXR done that did not show any overt heart failure. She was given Dexamethasone and nebulizer in the EMD as well as 40 mg IV Lasix and hospital team was notified for admission. Patient will be admitted to medical surgical floor, continue with scheduled nebulizers for 24 hours and treated for COPD exacerbation/bronchitis. Patient states she has not been to a Dr. in many years, reports they stopped her anticoagulation years ago and hasn't been on anything since, as well as her BP medications and heart rate medications. I did call the son Shaq who is her POA and Emergency contact to review the above information and review her medication list. Admission Exam Per Admitting Provider PHYSICAL EXAM: General: awake, alert, no apparent distress Head: Normocephalic, atraumatic ENT: PERRL, EOMI, no pharyngeal exudate, mucous membranes moist Neuro: AAO x 3, speech clear and appropriate, strength intact bilaterally 5/5, sensation intact and equal all extremities and dermatomes, no pronator drift Chest: equal rise and fall of the chest, no accessory muscle use, no heaves or thrills, inspiratory expiratory wheeze, raspy cough, scattered crackles, on room air, Cardiac: Regular rate and rhythm, telemetry reviewed- afib, skin warm dry, cap refill <3 seconds, peripheral pulses +2 no JVD, no murmur, GI: NABS x 4 quadrants, soft, nontender to palpation, no rebound, guarding or tenderness : chronic Hodges- draining dilute yellow urine, no pain, no CVA tenderness, Extremities: Normal inspection, no peripheral edema or erythema, calfs nontender to palpation, right leg slightly larger than left, no pain Psych: Normal mood and affect Skin: no rash or erythema, no areas of breakdown on heels, mild redness to sacrum Principal Diagnosis COPD Exacerbation, Bronchitis, CHF, CKD IV Discharge Exam Constitutional + ill appearing (chronically), + frail appearing, cooperative and comfortable; no acute distress Eyes PERRL, conjunctivae normal, anicteric sclerae + anicteric sclerae; no corneal abnormality ENMT Mouth: no oral mucosal abnormality and oral mucous membranes not dry Neck normal visual inspection and trachea midline Respiratory normal respiratory effort; no respiratory distress, no labored breathing and does not use accessory muscles Auscultation: + crackles (faint bibasilar) Cardiovascular Rate/Rhythm: + irregularly irregular Heart Sounds: + murmur Vessels: + JVD Extremities: + pedal edema (trace) Gastrointestinal (Abdomen) normal bowel sounds, soft, nontender, no hepatosplenomegaly Musculoskeletal Head/Neck/Chest: normocephalic and head atraumatic Skin normal turgor; no lesions Neurologic PERRL, EOMI, accommodation nl, no face palsy, no dysarthria Motor/Sensory: no tremor and no asterixis Psychiatric A+Ox3, euthymic affect Genitourinary hodges draining clear yellow urine Discharge Data Allergies Allergy/AdvReac Type Severity Reaction Status Date / Time Latex, Natural Rubber Allergy Mild Rash Verified 01/01/21 20:46 tramadol Allergy Unknown Unverified 01/01/21 17:54 nickel AdvReac Rash Verified 01/01/21 20:47 Consultations 01/01/21 17:27 ED Decision to Admit Stat 01/02/21 17:02 Consult Cardiology Routine Consult Pulmonology Routine 01/02/21 22:14 Consult Nephrology Routine Ordered Studies Chest X-Ray 01/01/21 14:32 XR chest 1V portable CLINICAL HISTORY: Atypical chest pain COMPARISON STUDY: 12/25/2019 FINDINGS: The cardiac and mediastinal contours remain stable. There is no failure. There is no acute parenchymal consolidation. There are no significant pleural effusions. There is a stable left lateral basilar opacity likely representing a fat pad. There are old left-sided rib deformities.[ IMPRESSION: No active disease in the chest. ACT 112: Negative or not required by law. Electronically signed by: Elieser Cha M.D. 01/01/2021 3:05 PM Chest X-Ray 01/02/21 05:59 XR chest 1V portable CLINICAL HISTORY: COPD/Bronchitis/CHF COMPARISON STUDY: January 01, 2021 FINDINGS: No pneumothorax. Small bilateral pleural effusions are again seen, left more than right and not significantly changed since prior. Mild interval prominence of irregular opacities at the left retrocardiac region which could represent atelectasis or infiltrates. Cardiomediastinal silhouette is within normal limits in size. No significant pulmonary vascular congestion.. Aorta is calcified. Osseous structures: Diffuse osteopenia. Redemonstration of deformity is within left rib cage. Multiple lucencies are seen within subcutaneous tissue and might represent subcutaneous emphysema. IMPRESSION: 1. Mild interval worsening of opacities within left retrocardiac region which could represent atelectasis or infiltrates. 2. Small bilateral pleural effusion. 3. Questionable soft tissue lucencies which may represent prominent fat planes or subcutaneous emphysema. Please correlate above-mentioned findings with clinical presentation of subcutaneous crepitus. ACT 112: Negative or not required by law. The above report was generated using voice recognition software. It may contain grammatical, syntax or spelling errors. Electronically signed by: Kelly Fisher DO 01/02/2021 11:35 AM Venous Doppler Study 01/02/21 16:25 ULTRASOUND BILATERAL LOWER EXTREMITY VENOUS CLINICAL HISTORY: Lower extremity edema. Atrial fibrillation. COMPARISON STUDY: Bilateral lower extremity venous ultrasound dated 11/10/2017 TECHNIQUE: Real-time, grayscale, and color Doppler sonography of the deep veins of the right and left lower extremity was performed from the inguinal crease to the calf. Compression and augmentation were utilized. FINDINGS: There is no sonographic evidence of deep venous thrombosis identified in the right or left lower extremity. The common femoral, superficial femoral, and popliteal veins are patent and normally compressible bilaterally. The greater saphenous vein and the profunda femoris vein at the junction with the common femoral vein are clear in both legs. The visualized calf veins are patent bilaterally. IMPRESSION: There is no sonographic evidence of deep venous thrombosis identified in the right or left lower extremity. ACT 112: Negative or not required by law. Electronically signed by: Piyush Fox M.D. 01/02/2021 5:32 PM Chest X-Ray 01/03/21 06:54 XR chest 1V portable CLINICAL HISTORY: F/u COMPARISON STUDY: Chest radiograph January 02, 2021. FINDINGS: Lung volumes are mildly diminished. There may be a small left pleural effusion. Left basilar opacity is again noted. There is no evidence for pulmonary edema. Cardiomediastinal silhouette is stable. Old left-sided rib fractures. IMPRESSION: Left basilar opacity which favors atelectasis although an infectious process could appear similar. Possible small left pleural effusion. ACT 112: Negative or not required by law. Electronically signed by: Carlos Wang M.D. 01/03/2021 10:58 AM ECHOCARDIOGRAM 01/02 Hospital Course (1) COPD (chronic obstructive pulmonary disease): Consistent with COPD exacerbation secondary to bronchitis Methylprednisolone 40mg IV Q6H scheduled --> Prednisone 40mg daily on 01/03 and per pulmonary, decrease by 10mg every other day to complete taper. * --> Patient with elevated BSGs (pharmacy consulted during admission) secondary to steroids, and regimen for NPH with prednisone based on dose along with SSI in addition to her usual medications PRESS LOADER at discharge until steroids complete d. A1c 7.9 acceptable given age Azithromycin x 5 days (4 given while inpatient) Continued combivent, nebs Started and continued on Breo daily at discharge Pulmonary consulted, stage 2-3 pulm htn -- did start cardizem per cardiology for her pulm HTN but HR too low and switched to amlodipine 2.5 mg daily (could increase if needed but watch for edema) Guafenesin prn cough Incentive spirometer 96% on RA, lungs CTAB Continued fluid restriction given CHF on admission and instructed to continue at discharge -- attempting to have f/u CHF clinic/telehealth as patient agreeable to attempt daily weights (2) Diastolic CHF: Cardiology consulted, BNP elevated and was hypervolemic on admission. Given lasix (40mg pO BID PRESS LOADER) Switched to bumex 1mg BID and continued at discharge Cardizem --> amlodipine as above given severe pulmonary arterial HTN and diastolic hypertension (no other significant change) -- discussed with Cardiology and felt secondary to lung disease CHF clinic at d/c (3) Afib: Currently rate controlled, patient was on Coumadin ~2018, patient reports that they stopped this but was not clear on reason --> No hx falls/bleeding (wheelchair bound at baseline) Discussed and started and continued on Eliquis 2.5mg BID at discharge (4) Chronic kidney disease, stage 4 (severe): Although last renal function on file was last year, her current numbers are markedly improved Did have elevation given diuretics and elevated blood sugars Low bicarb during admission and started on NaHCO3 Checked Vit D level -- VERY LOW --> PTH also elevated 274 --> Discussed with Dr. Crane and will have patient continued ergocalciferol 50,000 weekly x 8 weeks and calcitriol 0.25mcg daily. -->Follow up labs in 8 weeks BMP improved slightly with bumex Anion gap metabolic acidosis (suspected mild DKA/starvation) RESOLVED with NaHCO3 and improvement of her blood sugars. Her sodium also improved to 128 from 123 although was asymptomatic from that Diuretics switched to bumex 1mg PO BID (PRESS LOADER Lasix 40mg BID) and continued at discharge Repeat BMP in 2 days with home health --> Will have f/u telehealth with Dr lOiver as well as CHF clinic as above to help monitor/make adjustments to her diuretics based on weights (5) DMII (diabetes mellitus, type 2): UNCONTROLLED with STEROIDS Pharmacy consulted for glycemic management given steroid induced hyperglycemia despite acceptable A1c in the 7s Asked to tighten coverage on /3 given continued elevation/loose coverage and anion gap acidosis as above Plans for discharge with prednisone taper as above and discussed with pharmacy regarding plan for d/c: * While on NPH, sliding scale as follows with morning prednisone 25u NPH while on 30mg prednisone, 15u NPH while on 20mg dose, and 10u NPH while on 10mg dose * Additionally sent with SSI that her son agreed to help her with: * Blood Sugar 70-150 administer 0 units * Blood Sugar 151-200 administer 3 units * Blood Sugar 201-250 administer 5 units * Blood Sugar 251-300 administer 7 units * Blood Sugar 301-350 administer 9 units * Blood Sugar 351-400 administer 11 units * Blood Sugar >400 administer 13 units and call She is to continue her Lantus as ordered PRESS LOADER, 10u SQ BID (6) Hypertension: May need better controlled as outpatient goal <140 BP improved with addition of amlodipine 2.5mg daily as above for her pulm HTN BP prior to d/c 136/70 (7) Hyponatremia: Chronic. Baseline in the 127 range Some from lorazepam, some from poor solute intake, some from CHF/volume overload TSH wnl NaHCO3 as above, fluid restriction and bumex as abvoe Na 127 prior to d/c despite elevated BSgs in the 200s (8) GERD (gastroesophageal reflux disease): Continue Protonix BID (9) Vitamin D deficiency: low 17 50,000 ergocalciferol as above with calcitriol for PTH 274 Repeat labs as outpatient (10) Hyperparathyroidism: secondary to vit D deficiency CKD IV see above (11) Chronic indwelling Hodges catheter: Patient reports that she has this changed every month done by home nursing (done day of admission to ER) Continue monthly changes at home Urine without evidence of infection (12) DVT prophylaxis: SCDs Heparin SQ while inpatient and transitioned to Eliquis 2.5mg PO BID as above for her atrial fibrillation Discharged home with son. Home health through [facility] [facility]. PT/OT consulted -- patient at functional baseline Repeating BMP on Thursday F/u nephro/chf clinic/pcp at discharge [facility] at home also to come on Thursday for evaluation/further assistance -- Of note patient was on [facility] 2017 and "discontinued most medications" and then did well and hasn't been in the hospital since that time. May benefit from telehealth/palliative follow up if continues to decline with worsening renal function as discussed by nephrology and patient DOES NOT want to consider HD. Total Time Total Time Spent Total Time Spent (In Minutes): 120 Discharge Plan Discharge Items Patient Disposition: Home - Home Health Services Reason For Visit: Dyspnea Discharge Diagnosis: COPD exacerbation, Bronchitis, CHF, CKD IV Goals: You have been hospitalized for an acute medical problem. During your stay at [facility], we have made an effort to correct the problem that brought you to the hospital while keeping you as comfortable as possible. Medications were used to bring your condition under control and your discharge instructions will include directions for any medications you should take after leaving the hospital. Please make sure you see your Primary Care Provider as part of your follow up plan. Activity: Resume your previous activity Non-emergency contact: Primary Care Provider, Construction [employer] and [employer] Call non-emergency contact if: you have any medication questions, your symptoms worsen, your pain is not controlled and you have a fever Follow-up/Referrals: José Miguel Oliver MD [Physician] - 01/11/21 2:30 pm () Sanchez Barroso III, MD [Primary Care Provider] - 01/08/21 11:00 am (Pt is scheduled 01/08/2021 at 11:00 am with Jessica Hartley. ) Salome Sloan PA-C [Physician Nurse Staff] - 01/11/21 12:00 pm (1 week) Diet: Carb Consistent or DM2, Heart Healthy and Low Sodium (2gm) Fluids: 1500ml (6 cups) Ambulatory Orders: Basic Metabolic Panel (Routine) Timeframe: 2 Days Location: Determined by Patient Ordered By: Violeta Palmer Complete Blood Count no Diff (Timed) Timeframe: 2 Days Location: Determined by Patient Ordered By: Violeta Palmer Addtl Attending Provider Instructions: You have been hospitalized for shortness of breath and productive cough, and treated for a COPD exacerbation and bronchitis. You have an additional 1 day of azithromycin 250mg by mouth to complete treatment with antibiotics. You have been on steroids to help with breathing, but will need to have a sliding scale insulin at discharge to help manage your sugars at home until this is completed. Prednisone will be as follows: * Prednisone 30mg by mouth (3 tablets of 10mg) tomorrow 01/05, then decrease to * Prednisone 20mg by mouth(2 tablets of 10mg) on 01/06 and 01/07, then * Prednisone 10mg by mouth (1 tablet) on 01/08 and 01/09 to complete the taper You have also been started on a Breo inhaler to use daily in the morning to help with your COPD, which has caused pulmonary hypertension, and per recommendations by Cardiology, you have been started on low dose amlodipine 2.5mg by mouth daily and this will help with blood pressure and to ease the pressures in your lungs. You were also started on Eliquis 2.5mg by mouth TWICE daily for you afib to prevent risk of blood clot and stroke. This will be continued at discharge, given you were previously on Coumadin and this will not require lab checks. As steroids do increase your blood sugars, the following sliding scale has been formulated for at discharge while on steroids: * Insulin -- NPH (to be given at the time of prednisone administration in the morning) as follows: * --> while on 30mg dose, please administer 25 units of NPH * --> while on 20mg dose, please administer 15 units of NPH * --> while on 10mg dose, please administer 10 units of NPH Recommend high-dose Sliding Scale Insulin for additional coverage (your son is willing/able to help with this). * Blood Sugar 70-150 administer 0 units * Blood Sugar 151-200 administer 3 units * Blood Sugar 201-250 administer 5 units * Blood Sugar 251-300 administer 7 units * Blood Sugar 301-350 administer 9 units * Blood Sugar 351-400 administer 11 units * Blood Sugar >400 administer 13 units and call MD You should check your blood sugars before and after meals while on steroids. You should continue your Lantus as previously ordered at 10 units TWICE daily With regards to your kidney function, you were evaluated by nephrology and your vitamin D was found to be low with elevated parathyroid hormone and the following medications have been added * Calcitriol 0.25 mcg by mouth DAILY -- continue * Ergocalciferol (Vitamin D) -- you will need to take 50,000 units weekly for the next 8 weeks and have repeat labs drawn to see if this will need to be continued. * You will need follow up with Dr. Oliver and this can by done by telehealth. Your water pill has been switched from Lasix 40mg by mouth twice daily to Bumex 1mg by mouth TWICE daily to help with volume status and prevent congestive heart failure. As discussed by Dr Crane, we may need to accept some worsening kidney function to help keep your fluid balance in check. Will have BMP in the next two days to monitor your kidney function. You will need to have telehealth follow up with Dr. Tony/CHF clinic to have further adjustments to your diuretics and possible extra doses if needed if swelling/edema/weight gain occur. Please follow up with specialists/PCP at discharge. Please return to the emergency department with any fever, chills, chest pain, shortness of breath or for any symptoms that are worrisome for you. It has been a pleasure being a part of the medical team providing for you while you have been in the hospital. Take care! Pending Studies at Discharge: No Stand-Alone Forms: My [facility] Medications and DC Order Prescriptions: New azithromycin 250 mg Tablet 250 mg PO QAM Qty: 1 RF: 0 Eliquis 2.5 mg Tablet 2.5 mg PO BID 30 Days Qty: 60 RF: 3 amlodipine [Norvasc] 5 mg Tablet 2.5 mg PO QAM 30 Days Qty: 15 RF: 0 bumetanide 1 mg Tablet 1 mg PO BID17 30 Days Qty: 30 RF: 2 prednisone 10 mg Tablet 10 mg PO QAM Qty: 9 RF: 0 Breo Ellipta 100-25 mcg/dose Blister With Device 1 ea inhalation DAILY Qty: 28 RF: 0 calcitriol 0.25 mcg Capsule 0.25 mcg PO QAM 30 Days Qty: 30 RF: 3 ergocalciferol (vitamin D2) 1,250 mcg (50,000 unit) Capsule 50,000 unit PO Q7D Qty: 8 RF: 0 insulin aspart U-100 [Novolog Flexpen U-100 Insulin] 100 unit/mL (3 mL) Insulin Pen See Rx Instructions .ROUTE .COMPLEX Qty: 15 RF: 0 Novolin N NPH U-100 Insulin 100 unit/mL Suspension See Rx Instructions .ROUTE .COMPLEX Qty: 10 RF: 0 (DME) insulin syringe-needle U-100 [Insulin Syringe] 0.5 mL 29 gauge x 1/2" syringe See Rx Instructions .ROUTE .MEDSUPPLY Qty: 100 RF: 0 sodium bicarbonate 650 mg Tablet 650 mg PO TID Qty: 30 RF: 0 Continued (DME) Wheelchair (Manual) Device See Rx Instructions .ROUTE .MEDSUPPLY Qty: 1 RF: 0 (DME) nebulizers Misc See Rx Instructions .ROUTE .MEDSUPPLY Qty: 1 RF: 0 Lantus Solostar U-100 Insulin 100 unit/mL (3 mL) insulin pen 10 unit SUBCUT .COMPLEX Qty: 15 RF: 11 (DME) blood sugar diagnostic [OneTouch Ultra Blue Test Strip] Strip See Rx Instructions .ROUTE .MEDSUPPLY Qty: 50 RF: 11 gabapentin 300 mg capsule 300 mg PO TID Qty: 270 RF: 3 lorazepam 0.5 mg tablet 0.5 mg PO Q4H PRN (Reason: Anxiety) Qty: 30 RF: 0 promethazine 25 mg tablet 25 mg PO Q6H PRN (Reason: nausea and vomiting) Qty: 30 RF: 5 acetaminophen [Tylenol Extra Strength] 500 mg Tablet 500 - 1,000 mg PO Q6H MDD MAX 6 TAB/24 HOURS PRN (Reason: Pain) RF: 0 albuterol sulfate 90 mcg/actuation aerosol powdr breath activated 2 inh INH QID PRN (Reason: shortness of breath or wheezing) RF: 0 omeprazole 20 mg capsule,delayed release(DR/EC) 20 mg PO BID RF: 0 levalbuterol HCl 0.31 mg/3 mL solution for nebulization 3 mg INHALATION UD RF: 0 Discontinued furosemide 40 mg tablet 40 mg PO BID Qty: 60 RF: 5 Discharge Orders: Discharge Order (Routine); Ordered 01/04/21 Ordered By: Violeta Bolton/Other Patient Handouts: Chest and Lung Problems, Managing Type 2 Diabetes, What Is COPD?, Treatment for COPD, A1C Admission Data Admit Date/Time: 01/01/21 17:53 Attending Provider: Joe Conrad Admit Provider: Rojas Viera Primary Care Provider: Sanchez Barroso III Other Providers: Rojas Viera ; Bartolo Barrett ; Ulices Tony ; Gasper Crane ; [facility] Coding Level of Care Code D/C Day Management >30 mins Diagnoses COPD (chronic obstructive pulmonary disease) J44.9 COPD type: unspecified COPD Diastolic CHF I50.33 Heart failure chronicity: acute on chronic Afib I48.91 Atrial fibrillation type: unspecified Chronic kidney disease, stage 4 (severe) N18.4 DMII (diabetes mellitus, type 2) E11.69; Z79.4 Diabetes mellitus complication status: with other specified complication 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
--- NOTE | 2021-01-04 13:40 | Nephrology Progress Note ---
Date of Service January 04, 2021 Assessment & Plan (1) Hyponatremia: Acute on chronic. Appears relatively asymptomatic. Evidence of fluid retention noted. Diuretics being appropriately provided. Poor oral solute intake complicating correction. Free water restriction 1500 ml/day. Oral NaHCO3 650 TID added. Protein supplements to encourage oral solute intake. (2) Chronic kidney disease, stage 4 (severe): Due to DKD and history of DEMETRA. Kidney function stable. Goals of care reviewed. HD not to be considered. HCO3 replacement ordered for NAGMA. Medications appropriate for kidney dysfunction. For sPTH, ergocalciferol and calictriol added. Follow up labs to be coordinated with home health and telehealth/virtual visit scheduled with nephrology. (3) Hypertension: BP acceptable. No additional changes at this time. Goal is to maintain slightly negative fluid balance. Admission and Anticipated Discharge Date Admission Date: January 01, 2021 Subjective No acute events overnight. Jesenia was seen and evaluated this AM. She requested discharge. We reviewed the plan of care. I discussed the plan of care in detail with Violeta Palmer PA-C prior to discharge. Review of Systems Review of Systems: All systems reviewed & are unremarkable except as noted in HPI & below Physical Exam Constitutional: well developed; no acute distress Eyes: + anicteric sclerae; no corneal abnormality ENMT: Mouth: no oral mucosal abnormality and oral mucous membranes not dry Neck: normal visual inspection and trachea midline Respiratory: no respiratory distress and does not use accessory muscles Auscultation: + rales and + wheezes Cardiovascular: Rate/Rhythm: + bradycardic Heart Sounds: normal S1, normal S2 and + murmur Vessels: + JVD Extremities: + edema Musculoskeletal: Extremities: no cyanosis and no clubbing Skin: normal turgor; no lesions Neurologic: Motor/Sensory: no tremor and no asterixis Psychiatric: Orientation: alert and oriented x 3 Results & Data ([facility]) Vital Signs (Past 12 Hours) Vital Signs Temp Pulse Resp BP Pulse Ox 01/04/21 11:17 36.8 C 74 20 134/71 95 01/04/21 11:13 87 16 95 01/04/21 07:50 36.3 C L 60 18 119/57 L 94 01/04/21 07:07 60 16 94 Laboratory Results Laboratory Results - last 24 hr 01/03/21 01/03/21 01/03/21 14:58 17:21 20:34 WBC RBC Hgb Hct MCV MCH MCHC RDW Std Deviation RDW Coeff of Michael Plt Count MPV Immature Gran % (Auto) Neut % (Auto) Lymph % (Auto) Gillespie % (Auto) Eos % (Auto) Baso % (Auto) Neut # (Auto) Lymph # (Auto) Gillespie # (Auto) Eos # (Auto) Baso # (Auto) Immature Gran # (Auto) Sodium 124 L Potassium 4.3 Chloride 92 L Carbon Dioxide 19 L Anion Gap 13.0 H BUN 50 H Creatinine 2.76 H Est Cr Clr Drug Dosing 18.9 Est GFR ( Amer) 18.6 Est GFR (Non-Af Amer) 16.0 BUN/Creatinine Ratio 18.1 Glucose 275 H POC Glucose 209 H 258 H Calcium 8.8 Magnesium PTH Intact 01/03/21 01/03/21 01/04/21 21:10 23:55 04:13 WBC RBC Hgb Hct MCV MCH MCHC RDW Std Deviation RDW Coeff of Michael Plt Count MPV Immature Gran % (Auto) Neut % (Auto) Lymph % (Auto) Gillespie % (Auto) Eos % (Auto) Baso % (Auto) Neut # (Auto) Lymph # (Auto) Gillespie # (Auto) Eos # (Auto) Baso # (Auto) Immature Gran # (Auto) Sodium 122 L Potassium 4.3 Chloride 90 L Carbon Dioxide 20 L Anion Gap 12.0 H BUN 58 H Creatinine 3.18 H D Est Cr Clr Drug Dosing 16.4 Est GFR ( Amer) 15.6 Est GFR (Non-Af Amer) 13.5 BUN/Creatinine Ratio 18.3 Glucose 213 H POC Glucose 189 H 185 H Calcium 8.7 Magnesium PTH Intact 01/04/21 01/04/21 01/04/21 06:14 06:14 06:14 WBC 8.31 RBC 3.79 L Hgb 10.1 L Hct 31.0 L MCV 81.8 MCH 26.6 MCHC 32.6 RDW Std Deviation 44.8 RDW Coeff of Michael 15.0 H Plt Count 280 MPV 9.9 Immature Gran % (Auto) 0.1 Neut % (Auto) 86.7 Lymph % (Auto) 7.1 Gillespie % (Auto) 6.1 Eos % (Auto) 0.0 Baso % (Auto) 0.0 Neut # (Auto) 7.20 H Lymph # (Auto) 0.59 L Gillespie # (Auto) 0.51 Eos # (Auto) 0.00 Baso # (Auto) 0.00 Immature Gran # (Auto) 0.01 Sodium 126 L Potassium 3.9 Chloride 94 L Carbon Dioxide 21 Anion Gap 11.0 BUN 57 H Creatinine 2.97 H Est Cr Clr Drug Dosing 17.8 Est GFR ( Amer) 17.0 Est GFR (Non-Af Amer) 14.7 BUN/Creatinine Ratio 19.1 Glucose 158 H POC Glucose Calcium 8.5 Magnesium 2.7 H PTH Intact 267.2 H 01/04/21 01/04/21 01/04/21 08:22 12:11 12:12 WBC RBC Hgb Hct MCV MCH MCHC RDW Std Deviation RDW Coeff of Michael Plt Count MPV Immature Gran % (Auto) Neut % (Auto) Lymph % (Auto) Gillespie % (Auto) Eos % (Auto) Baso % (Auto) Neut # (Auto) Lymph # (Auto) Gillespie # (Auto) Eos # (Auto) Baso # (Auto) Immature Gran # (Auto) Sodium Potassium Chloride Carbon Dioxide Anion Gap BUN Creatinine Est Cr Clr Drug Dosing Est GFR ( Amer) Est GFR (Non-Af Amer) BUN/Creatinine Ratio Glucose POC Glucose 139 H 324 H* 334 H* Calcium Magnesium PTH Intact PG Care Time/CCT Total # of Minutes Spent Total Time Spent with Patient: Total time spent is greater than 50% in coordination of care (as documented) at patient's floor/unit and/or counseling patient: Coding Level of Care Code 14827 Subseq Hosp Care Lvl 3 Diagnoses Hyponatremia E87.1 Chronic kidney disease, stage 4 (severe) N18.4 Hypertension I10 Hypertension type: essential hypertension (1) Hypertension Hypertension type: essential hypertension Qualified Code(s): I10 - Essential (primary) hypertension
[2021-01-04 14:33] LABS: BUN Creatinine Ratio 21.2 (10-20); Calcium 8.5 mg/dl (8.5-10.1); Creatinine Clr Calc Pharmacy 18.2 ml/min; Est GFR (African American) 17.4 ml/min; Potassium 3.9 mmol/L (3.5-5.1)
== END 2021-01-04 16:38 | disposition home health service (06) | DRG 190 ==
LOC: ED 14:01 → 3N 17:53 → SUATTDRO 17:53 → 3N 19:45

== ENCOUNTER 2022-10-23 17:25 | Inpatient (IN) ==
--- NOTE | 2022-10-23 18:02 | Emergency Department Note ---
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 insulin pen See Rx Instructions .ROUTE .COMPLEX Qty: 15 0RF Rx Instructions: See Sliding Scale (DME) OneTouch Ultra Blue Test Strip Strip See Rx Instructions .ROUTE .MEDSUPPLY Qty: 50 11RF Rx Instructions: As directed (DME) Hospital Bed Misc See Rx Instructions .Route Qty: 1 0RF Rx Instructions: semi electric hospital bed with air mattress. (DME) nebulizer accessories Kit See Rx Instructions .Route Qty: 1 0RF Rx Instructions: nebulizer kit and accessories calcitriol 0.25 mcg capsule 0.25 mcg PO QAM 30 Days Qty: 30 3RF sodium bicarbonate 650 mg tablet 650 mg PO DAILY Qty: 30 3RF (DME) 20 g Bulgarian Catheter See Rx Instructions .Route .MEDSUPPLY Qty: 1 12RF Rx Instructions: Insert new 20 g Bulgarian catheter every 30 days, or PRN for leakage.; gabapentin 300 mg capsule 300 mg PO TID Qty: 90 5RF sertraline 25 mg tablet 25 mg PO DAILY Qty: 30 5RF omeprazole 20 mg capsule,delayed release(DR/EC) 20 mg PO BID Qty: 60 5RF Rx Instructions: pt ran out..needs new script acetaminophen [Tylenol Extra Strength] 500 mg Tablet 500 - 1,000 mg PO Q6H MDD MAX 6 TAB/24 HOURS PRN (Reason: Pain) albuterol sulfate 90 mcg/actuation aerosol powdr breath activated 2 inh INH QID PRN (Reason: shortness of breath or wheezing) bumetanide 1 mg Tablet 1 mg PO BID17 30 Days Qty: 30 2RF ergocalciferol (vitamin D2) 1,250 mcg (50,000 unit) Capsule 50,000 unit PO Q7D Qty: 8 0RF (DME) insulin syringe-needle U-100 [Insulin Syringe] 0.5 mL 29 gauge x 1/2" syringe See Rx Instructions .ROUTE .MEDSUPPLY Qty: 100 0RF Rx Instructions: As directed amlodipine 2.5 mg tablet 2.5 mg PO QAM Myrbetriq 25 mg tablet extended release 24 hr 25 mg PO DAILY furosemide 40 mg tablet 40 mg PO DAILY insulin glargine [Lantus Solostar U-100 Insulin] 100 unit/mL (3 mL) insulin pen 10 unit SUBCUT AMPM Rx Instructions: 10 units subcut each morning and evening; Referrals Referrals: Tasha Wang MD [Primary Care Provider] -
[2022-10-23 18:21] LABS: Basophils # (auto) 0.04 K/uL (0-0.2); Basophils % (auto) 0.5 %; Eosinophils # (auto) 0.06 K/uL (0-0.50); Eosinophils % (auto) 0.8 %; Hematocrit (blood only) 42.5 % (37.0-47.0); Hemoglobin 13.2 g/dl (12.0-16.0); Immature Granulocytes # (auto) 0.03 K/uL (0.01-0.20); Immature Granulocytes % (auto) 0.4 %; Lymphocytes # (auto) 0.95 K/uL (1.2-3.4); Lymphocytes % (auto) 12.2 %; Mean Corpuscular Hgb Conc 31.1 g/dL (32.0-36.0); Mean Corpuscular Volume 83.8 fL (80.0-100.0); Mean Platelet Volume 10.5 fL (9.4-12.4); Monocytes # (auto) 0.46 K/uL (0.11-0.59); Monocytes % (auto) 5.9 %; Neutrophils # (auto) 6.23 K/uL (1.40-6.50); Neutrophils % (auto) 80.2 %; Platelet Count 327 K/uL (130-400); RDW Coefficient of Variation 15.8 % (11.5-14.5); RDW Standard Deviation 47.2 fL (36.4-46.3); Red Blood Count 5.07 M/uL (4.20-5.40); White Blood Count 7.77 K/ul (4.8-10.8)
[2022-10-23] MEDS ORDERED: ACETAMINOPHEN 325 MG TAB PO STA (18:22)
--- NOTE | 2022-10-23 18:26 | CT Scan Report ---
HEAD CT NONCONTRAST CT DOSE: 816.25 mGy.cm HISTORY: Fall. TECHNIQUE: Multiaxial CT images of the head were performed without the use of intravenous contrast. A utomated exposure control was utilized for this study. A dose lowering technique was utilized adheri ng to the principles of ALARA. Comparison: Head CT 12/19/2017. Findings: Fluid level with near complete opacification of the left sphenoid sinus. This has progresse d. The mastoid air cells are clear. The calvarium and skull base are intact. There is no mass, hemato ma, midline shift, acute infarct. White matter hypodensity is nonspecific but suggestive of microvasc ular ischemic change. The ventricles and sulci demonstrate mild age-related involutional changes. 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 This remains unchanged. Impression: 1. No acute infarct or intracranial hemorrhage. 2. Acute on chronic left sphenoid sinusitis which has progressed. ACT 112: Negative or not required by law. Electronically signed by: Richard Garcia M.D. 10/23/2022 6:22 PM
[2022-10-23 18:32] LABS: Albumin Globulin Ratio 1.2 (0.9-2); Albumin Level 4.1 gm/dl (3.4-5.0); BUN Creatinine Ratio 10.8 (10-20); Bilirubin,Total 0.4 mg/dl (0.2-1.0); Calcium 9.7 mg/dl (8.6-10.3); Creatinine Clr Calc Pharmacy 20.4 ml/min; Est GFR (African American) 29.7 ml/min; Est GFR (Non-African American) 25.6 ml/min; Globulin 3.4 gm/dl (2.5-4.0); Potassium 4.3 mmol/L (3.5-5.1); Total Protein 7.5 gm/dl (6.0-8.3)
--- NOTE | 2022-10-23 18:32 | CT Scan Report ---
CERVICAL SPINE CT CT DOSE: HISTORY: fall TECHNIQUE: Multiaxial CT images of the cervical spine were performed and reformatted in the sagittal and coronal plane without the use of contrast. A dose lowering technique was utilized adhering to th e principles of ALARA. COMPARISON: Cervical spine CT 07/09/2017. FINDINGS: No fractures. No subluxation. Prevertebral soft tissues and the C1-C2 interval are intact. No pneumothorax. Levoscoliosis which may be positional. IMPRESSION: No fractures within the cervical spine. ACT 112: Negative or not required by law. Electronically signed by: Richard Garcia M.D. 10/23/2022 6:29 PM
[2022-10-23] MEDS ORDERED: GABAPENTIN 300 MG CAP PO ONE (18:33)
[2022-10-23 18:38] LABS: Troponin I High Sensitivity 12.4 pg/ml (0-14)
[2022-10-23 18:41] LABS: Prothrombin Time 10.3 Seconds (9.0-12.0)
[2022-10-23 19:11] LABS: Appearance Urine Turbid (Clear); Bilirubin Urine Negative (Negative); Blood Urine 2+ (Negative); Glucose Urine UA Negative (Negative); Ketones Urine Trace (Negative); Leukocyte Esterase Urine 3+ (Negative); Nitrite Urine Positive (Negative); Protein Urine 3+ (Negative); Specific Gravity Urine 1.025 (1.000-1.030); Urobilinogen Urine Negative (Negative); pH Urine 5.5 (4.5-7.5)
[2022-10-23 19:18] LABS: Color Urine Straw
[2022-10-23 19:30] LABS: Bacteria Urine 3+ (Negative); Epithelial Cell Urine 0-5 /lpf (0-5); WBC Urine >30 /hpf (0-5)
--- NOTE | 2022-10-23 19:30 | XRay Report ---
XR pelvis 1-2V routine CLINICAL HISTORY: Fall. Pelvic pain. Weakness. COMPARISON STUDY: Pelvic radiograph 04/22/2019. FINDINGS: The bones are osteopenic. No acute fracture or dislocation. The sacrum appears intact. Basi lar calcifications are noted. IMPRESSION: Osteopenia resulting in suboptimal evaluation. No definite acute fracture or dislocation within the pelvis or hips ACT 112: Negative or not required by law. Electronically signed by: Richard Garcia M.D. 10/23/2022 7:29 PM
--- NOTE | 2022-10-23 19:32 | XRay Report ---
XR chest 1V portable HISTORY: weakness COMPARISON: Chest 01/03/2021. FINDINGS: There are low lung volumes. No pneumothorax. No pleural effusions. The correct silhouette r emains mildly enlarged. There are old, healed left-sided rib fractures again noted. Focal hazy densit y within the the right upper lung is likely due to overlapping artifact. Otherwise, the lungs are duarte ar. Calcifications again noted within the aortic knob. IMPRESSION: Focal hazy density within the right upper lobe is likely due to overlying artifact. Otherwise, no acu te process within the chest. ACT 112: Negative or not required by law. Electronically signed by: Richard Garcia M.D. 10/23/2022 7:30 PM
--- NOTE | 2022-10-23 19:36 | XRay Report ---
XR knee RT 1 or 2V routine, XR knee LT 1 or 2V routine CLINICAL HISTORY: Bilateral knee pain. COMPARISON STUDY: Bilateral knees 02/09/2014. FINDINGS: The bones are osteopenic resulting in suboptimal evaluation. No acute fracture or dislocati on within the right knee. No right knee effusion. Vascular calcifications are noted. There is moderat e tricompartmental osteoarthritis within the bilateral knees. There is a moderate left knee effusion which may represent a lipohemarthrosis. No definite fractures identified within the left knee. Of not e, the left knee is slightly rotated resulting in suboptimal evaluation. IMPRESSION: 1. No acute fracture or dislocation within the right knee. 2. Moderate left knee effusion which may represent a lipohemarthrosis. No definite fractures within the left knee. However, the presence of a lipohemarthrosis is concerning for an occult fracture. ACT 112: Negative or not required by law. Electronically signed by: Richard Garcia M.D. 10/23/2022 7:34 PM
[2022-10-23] MEDS ORDERED: CEFEPIME 2,000 MG/20 ML VIAL IV STA (20:19)
[2022-10-23 20:44] LABS: Amphetamines+Metham, Urine Neg (Neg); Barbiturates, Urine Neg (Neg); Benzodiazepine, Urine Neg (Neg); Cocaine, Urine Neg (Neg); MDMA (Ecstacy), Urine Neg (Neg); Methadone, Urine Neg (Neg); Opiate, Urine Neg (Neg); Phencyclidine, Urine Neg (Neg)
--- NOTE | 2022-10-23 21:14 | History & Physical Report ---
Date of Service October 23, 2022 Assessment & Plan (1) UTI (urinary tract infection): Plan: 76yo female - bedbound with chronic indwelling Mccollum catheter presents from home with near fall and right knee pain. Found with UTI. Patient had Mccollum exchanged in the ER. She is afebrile, HD stable and non-toxic in appearance. -Mccollum replaced in ER -Follow urine culture -Ceftriaxone 1gm IV daily (2) Knee pain: Plan: Patient nearly fell from her bed and caught her left knee between the bars. She is having significant discomfort. No fracture appreciated on X-ray. Exam with some erythema and edema, effusion present as well. -Tylenol 1gm po TID -Oxycodone 5mg po q 6 hours as needed -Continue home Gabapentin -Patient reports that she is doing well at home and does not wish to go to rehab. She feels that between her son and home nursing she has enough support. She feels safe at home. Once knee pain is adequately controlled patient should be considered for discharge home. She does not wish to stay in the hospital for a long period of time and is very eager to return home. (3) A-fib: Plan: Rate controlled. On Apixaban anticoagulation -Continue Apixaban (4) COPD (chronic obstructive pulmonary disease): Plan: No cough, SOB or wheeze -Albuterol PRN -Supplemental O2 as needed (5) Metabolic acidosis: Plan: Chronic. -Continue home sodium bicarbonate tablets (6) GERD (gastroesophageal reflux disease): Plan: Chronic -Protonix 40mg po daily (7) CKD (chronic kidney disease): Plan: BUN and Cr near baseline -Avoid nephrotoxic agents -Renal dosing where needed (8) Chronic indwelling Mccollum catheter: Plan: Exchanged in ER -Treatment of UTI as above -Routine care q shift (9) Diastolic CHF: Plan: Patient appears to be compensated -Continue daily Lasix (10) DMII (diabetes mellitus, type 2): Plan: Chronic -Continue Lantus 7u BID, ISS -Goal blood sugar 110 - 140 (11) Hypertension: Plan: Blood pressure mildly elevated -Pain control with Tylenol, OxyIR as needed -Continue Amlodipine 2.5mg po daily -Continue daily Lasix History of Present Illness Chief Complaint: left knee pain Primary Care Provider: Tasha Wang MD Jesenia Chappell is a pleasant 76yo female with history of Atrial Fibrillation on Apixaban anticoagulation, COPD, DM, HTN and GERD presenting from home with left knee pain. Patient currently lives with her son in a camper. She is bedbound. She has a home hospital bed and has home nursing come 5 days/week. She has a chronic Mccollum catheter in place. Patient nearly fell out of bed yesterday and caught her left knee between the rails of her bed. She has had significant pain in her left knee since. She has been having some episodic dizziness and lightheadedness as well as dysuria and diarrhea for the last several days. Intermittent back pain as well. In the ER she is afebrile, HD stable, NAD. Mccollum exchanged. Purulent discharge noted with removal of Mccollum. ER course: Tylenol 650mg Gabapentin 300mg Cefepime ordered - not yet given Allergies Allergy/AdvReac Type Severity Reaction Status Date / Time Latex, Natural Rubber Allergy Mild Rash Verified 01/01/21 20:46 tramadol Allergy Unknown Unverified 01/01/21 17:54 nickel AdvReac Rash Verified 01/01/21 20:47 Home Medications Medication Instructions Recorded Confirmed Type acetaminophen 500 mg tablet 500 - 1,000 mg PO Q6H PRN Pain 12/25/19 10/23/22 History (Tylenol Extra Strength) Wheelchair (Manual) #1 ea 12/30/19 08/23/20 Rx nebulizers #1 ea 01/03/20 08/23/20 Rx promethazine 25 mg tablet 25 mg PO Q6H PRN nausea and 12/24/20 10/23/22 Rx vomiting #30 tabs albuterol sulfate 90 mcg/actuation 2 inh inhalation QID PRN shortness 01/01/21 10/23/22 History breath activated powder inhaler of breath or wheezing bumetanide 1 mg tablet 1 mg PO BID17 30 days #30 tabs 01/04/21 10/23/22 Rx ergocalciferol (vitamin D2) 1,250 50,000 unit PO Q7D #8 caps 01/04/21 10/23/22 Rx mcg (50,000 unit) capsule insulin syringe-needle U-100 0.5 #100 ea 01/04/21 Rx mL 29 gauge x 1/2" (Insulin Syringe) lorazepam 0.5 mg tablet 0.5 mg PO Q4H PRN Anxiety #30 tabs 01/21/21 10/23/22 Rx apixaban 2.5 mg tablet (Eliquis) 2.5 mg PO BID 30 days #60 tabs 09/05/21 10/23/22 Rx blood sugar diagnostic #50 ea 10/28/21 Rx insulin aspart U-100 100 unit/mL See Rx Instructions .Route 10/28/21 10/23/22 Rx (3 mL) subcutaneous pen (Novolog .COMPLEX #15 mL FlexPen U-100 Insulin aspart) omeprazole 20 mg capsule,delayed 20 mg PO BID #60 caps 01/24/22 10/23/22 Rx release Hospital Bed Homecare (Hospital #1 ea 01/31/22 Rx Bed) nebulizer accessories #1 ea 01/31/22 Rx calcitriol 0.25 mcg capsule 0.25 mcg PO QAM 30 days #30 caps 02/20/22 10/23/22 Rx sodium bicarbonate 650 mg tablet 650 mg PO DAILY #30 tabs 02/20/22 10/23/22 Rx 20 g Urdu Catheter #1 ea 05/02/22 Rx gabapentin 300 mg capsule 300 mg PO TID #90 caps 07/01/22 10/23/22 Rx sertraline 25 mg tablet 25 mg PO DAILY #30 tabs 08/20/22 10/23/22 Rx amlodipine 2.5 mg tablet 2.5 mg PO QAM 10/23/22 10/23/22 History furosemide 40 mg tablet 40 mg PO DAILY 10/23/22 10/23/22 History insulin glargine 100 unit/mL (3 10 unit subcut AMPM 10/23/22 10/23/22 History mL) subcutaneous pen (Lantus Solostar U-100 Insulin) mirabegron 25 mg tablet,extended 25 mg PO DAILY 10/23/22 10/23/22 History release 24 hr (Myrbetriq) Past Med/Surg History Medical History (Updated 10/23/22 @ 21:38 by Barbara Mcmahon DO) A-fib AMI (acute myocardial infarction) Anemia ARF (acute renal failure) Bronchitis Chronic kidney disease COPD (chronic obstructive pulmonary disease) Diabetes Fall in home Fracture of right distal radius Fracture of right ulnar styloid Hypertension Hypoglycemia Hyponatremia Insulin overdose Left sided chest pain Narcotic-induced nausea and vomiting Permanent atrial fibrillation PNA (pneumonia) Renal insufficiency Shortness of breath UTI (urinary tract infection) Surgical History History of cataract surgery History of esophagogastroduodenoscopy (EGD) History of lung surgery Family History Unknown Diabetes Pancreatic cancer Lung cancer Coronary heart disease Breast cancer Other Family history non-contributory Denies family history of Ovarian cancer Prostate cancer Myocardial infarction Colorectal cancer Social History Smoking Status: Former smoker Hx Alcohol Use: No Hx Substance Use: No Preferred Language: Lao Communication Ability: Effective Beliefs That Will Affect Care: None marital status: Current Living Situation: Spouse and Family current occupational status: retired Feels Safe at Home: Yes Assistive Devices: Hospital Bed, Nebulizer and Oxygen - Continuous Review of Systems Review of Systems: All systems reviewed & are unremarkable except as noted in HPI & below Physical Exam Physical Exam: General: frail, elderly female patient resting comfortably, NAD, non-toxic in appearance, AA&O x 4 Skin: warm, dry, intact, no rashes or lesions HEENT: NC/AT, PERRL, EOMI, anicteric sclera, conjunctiva without injection, external ear normal to inspection and nontender, nares patent, moist mucus membranes, dentition intact, no oropharyngeal lesions, neck supple, trachea midline, no LAD, no thyromegaly, no JVD Heart: +S1/S2, irregularly irregular, no m/r/g Lungs: equal air entry bilaterally, no rales/rhonchi/wheezes Abd: +BS, soft, NT/ND, no masses/organomegaly/ascites Ext: warm, 2+ pulses in UE/LE bilaterally, no clubbing/cyanosis, mild erythema and tenderness of left knee. Limited mobility in hips and knees. Missing right middle finger. Neuro: nonfocal, patient AA&O x 4, speech intact, no facial droop, moving all extremities on command with equal strength 5/5, limited mobility in bilateral legs Results & Data Results & Data Vital Signs (Past 12 Hours) Vital Signs Temp Pulse Pulse Resp BP BP Pulse Ox 10/23/22 18:41 97 H 18 165/98 H 98 03/23/23 17:41 96 H 21 98 10/23/22 17:35 104 H 15 98 10/23/22 17:35 104 H 15 98 10/23/22 17:35 104 H 15 138/82 98 10/23/22 17:42 106 H 10/23/22 17:28 36.5 C 97 H 15 138/82 98 O2 Del Method 10/23/22 18:41 Room Air 10/23/22 17:41 Room Air 10/23/22 17:35 Room Air 10/23/22 17:35 Room Air 10/23/22 17:35 Room Air 10/23/22 17:42 10/23/22 17:28 Room Air Laboratory Results Laboratory Results WBC 7.77 K/ul (4.8-10.8) 10/23/22 17:48 RBC 5.07 M/uL (4.20-5.40) 10/23/22 17:48 Hgb 13.2 g/dl (12.0-16.0) 10/23/22 17:48 Hct 42.5 % (37.0-47.0) 10/23/22 17:48 MCV 83.8 fL (80.0-100.0) 10/23/22 17:48 MCH 26.0 pg (25.0-34.0) 10/23/22 17:48 MCHC 31.1 g/dL (32.0-36.0) L 10/23/22 17:48 RDW Std Deviation 47.2 fL (36.4-46.3) H 10/23/22 17:48 RDW Coeff of Michael 15.8 % (11.5-14.5) H 10/23/22 17:48 Plt Count 327 K/uL (130-400) 10/23/22 17:48 MPV 10.5 fL (9.4-12.4) 10/23/22 17:48 Immature Gran % (Auto) 0.4 % 10/23/22 17:48 Neut % (Auto) 80.2 % 10/23/22 17:48 Lymph % (Auto) 12.2 % 10/23/22 17:48 Craig % (Auto) 5.9 % 10/23/22 17:48 Eos % (Auto) 0.8 % 10/23/22 17:48 Baso % (Auto) 0.5 % 10/23/22 17:48 Neut # (Auto) 6.23 K/uL (1.40-6.50) 10/23/22 17:48 Lymph # (Auto) 0.95 K/uL (1.2-3.4) L 10/23/22 17:48 Craig # (Auto) 0.46 K/uL (0.11-0.59) 10/23/22 17:48 Eos # (Auto) 0.06 K/uL (0-0.50) 10/23/22 17:48 Baso # (Auto) 0.04 K/uL (0-0.2) 10/23/22 17:48 Immature Gran # (Auto) 0.03 K/uL (0.01-0.20) 10/23/22 17:48 PT 10.3 Seconds (9.0-12.0) 10/23/22 17:48 INR 1.0 (0.9-1.1) 10/23/22 17:48 Sodium 132 mmol/L (136-145) L 10/23/22 17:48 Potassium 4.3 mmol/L (3.5-5.1) 10/23/22 17:48 Chloride 102 mmol/L (98-107) 10/23/22 17:48 Carbon Dioxide 21 mmol/L (21-32) 10/23/22 17:48 Anion Gap 9 (3-11) 10/23/22 17:48 BUN 20 mg/dl (6-23) 10/23/22 17:48 Creatinine 1.86 mg/dl (0.6-1.2) H 10/23/22 17:48 Est Cr Clr Drug Dosing 20.4 ml/min 10/23/22 17:48 Est GFR ( Amer) 29.7 ml/min 10/23/22 17:48 Est GFR (Non-Af Amer) 25.6 ml/min 10/23/22 17:48 BUN/Creatinine Ratio 10.8 (10-20) 10/23/22 17:48 Glucose 205 mg/dl (70-99(Fasting)) H 10/23/22 17:48 Calcium 9.7 mg/dl (8.6-10.3) 10/23/22 17:48 Magnesium 2.0 mg/dl (1.7-2.4) 10/23/22 17:48 Total Bilirubin 0.4 mg/dl (0.2-1.0) 10/23/22 17:48 AST 8 U/L (13-39) L 10/23/22 17:48 ALT 6 U/L (7-52) L 10/23/22 17:48 Alkaline Phosphatase 128 U/L (34-104) H 10/23/22 17:48 Total Creatine Kinase 20 U/L (26-192) L 10/23/22 17:48 Troponin I High Sens 12.4 pg/ml (0-14) 10/23/22 17:48 Total Protein 7.5 gm/dl (6.0-8.3) 10/23/22 17:48 Albumin 4.1 gm/dl (3.4-5.0) 10/23/22 17:48 Globulin 3.4 gm/dl (2.5-4.0) 10/23/22 17:48 Albumin/Globulin Ratio 1.2 (0.9-2) 10/23/22 17:48 TSH 1.685 uIu/ml (0.300-4.500) 10/23/22 17:48 Urine Color Straw 10/23/22 18:53 Urine Appearance Turbid (Clear) A 10/23/22 18:53 Urine pH 5.5 (4.5-7.5) 10/23/22 18:53 Ur Specific [place] 1.025 (1.000-1.030) 10/23/22 18:53 Urine Protein 3+ (Negative) H 10/23/22 18:53 Urine Glucose (UA) Negative (Negative) 10/23/22 18:53 Urine Ketones Trace (Negative) H 10/23/22 18:53 Urine Blood 2+ (Negative) H 10/23/22 18:53 Urine Nitrite Positive (Negative) A 10/23/22 18:53 Urine Bilirubin Negative (Negative) 10/23/22 18:53 Urine Urobilinogen Negative (Negative) 10/23/22 18:53 Ur Leukocyte Esterase 3+ (Negative) H 10/23/22 18:53 Urine RBC 5-10 /hpf (0-4) H 10/23/22 18:53 Urine WBC >30 /hpf (0-5) H 10/23/22 18:53 Ur Epithelial Cells 0-5 /lpf (0-5) 10/23/22 18:53 Urine Bacteria 3+ (Negative) H 10/23/22 18:53 Urine Yeast Budding w/ Hyphae (None Prsent) A 10/23/22 18:53 Urine Opiates Screen Neg (Neg) 10/23/22 18:53 Ur Methadone, Qual Neg (Neg) 10/23/22 18:53 Urine Barbiturates Neg (Neg) 10/23/22 18:53 Ur Phencyclidine (PCP) Neg (Neg) 10/23/22 18:53 U Amphetamin/Meth Scrn Neg (Neg) 10/23/22 18:53 MDMA (Ecstasy) Screen Neg (Neg) 10/23/22 18:53 U Benzodiazepines Scrn Neg (Neg) 10/23/22 18:53 Ur Cocaine Metabolite Neg (Neg) 10/23/22 18:53 U Marijuana (THC) Screen Neg (Neg) 10/23/22 18:53 SARS-CoV-2, RNA, NAAT NEGATIVE (NEGATIVE) 10/23/22 17:46 Impressions Chest X-Ray 10/23/22 17:41 XR chest 1V portable HISTORY: weakness COMPARISON: Chest 01/03/2021. FINDINGS: There are low lung volumes. No pneumothorax. No pleural effusions. The correct silhouette remains mildly enlarged. There are old, healed left-sided rib fractures again noted. Focal hazy density within the the right upper lung is likely due to overlapping artifact. Otherwise, the lungs are clear. Calcifications again noted within the aortic knob. IMPRESSION: Focal hazy density within the right upper lobe is likely due to overlying artifact. Otherwise, no acute process within the chest. ACT 112: Negative or not required by law. Electronically signed by: Richard Garcia M.D. 10/23/2022 7:30 PM Pelvis X-Ray 10/23/22 17:41 XR pelvis 1-2V routine CLINICAL HISTORY: Fall. Pelvic pain. Weakness. COMPARISON STUDY: Pelvic radiograph 04/22/2019. FINDINGS: The bones are osteopenic. No acute fracture or dislocation. The sacrum appears intact. Basilar calcifications are noted. IMPRESSION: Osteopenia resulting in suboptimal evaluation. No definite acute fracture or dislocation within the pelvis or hips ACT 112: Negative or not required by law. Electronically signed by: Richard Garcia M.D. 10/23/2022 7:[address] 10/23/22 17:[address] DOSE: HISTORY: fall TECHNIQUE: Multiaxial CT images of the cervical spine were performed and reformatted in the sagittal and coronal plane without the use of contrast. A dose lowering technique was utilized adhering to the principles of ALARA. COMPARISON: Cervical spine CT 07/09/2017. FINDINGS: No fractures. No subluxation. Prevertebral soft tissues and the C1-C2 interval are intact. No pneumothorax. Levoscoliosis which may be positional. IMPRESSION: No fractures within the cervical spine. ACT 112: Negative or not required by law. Electronically signed by: Richard Garcia M.D. 10/23/2022 6:[address] 10/23/22 17:[address] DOSE: 816.25 mGy.cm HISTORY: Fall. TECHNIQUE: Multiaxial CT images of the head were performed without the use of intravenous contrast. Automated exposure control was utilized for this study. A dose lowering technique was utilized adhering to the principles of ALARA. Comparison: Head CT 12/19/2017. Findings: Fluid level with near complete opacification of the left sphenoid sinus. This has progressed. The mastoid air cells are clear. The calvarium and skull base are intact. There is no mass, hematoma, midline shift, acute infarct. White matter hypodensity is nonspecific but suggestive of microvascular ischemic change. The ventricles and sulci demonstrate mild age-related involutional changes. 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 This remains unchanged. Impression: 1. No acute infarct or intracranial hemorrhage. 2. Acute on chronic left sphenoid sinusitis which has progressed. ACT 112: Negative or not required by law. Electronically signed by: Richard Garcia M.D. 10/23/2022 6:22 PM Knee X-Ray 10/23/22 17:46 XR knee RT 1 or 2V routine, XR knee LT 1 or 2V routine CLINICAL HISTORY: Bilateral knee pain. COMPARISON STUDY: Bilateral knees 02/09/2014. FINDINGS: The bones are osteopenic resulting in suboptimal evaluation. No acute fracture or dislocation within the right knee. No right knee effusion. Vascular calcifications are noted. 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 There is a moderate left knee effusion which may represent a lipohemarthrosis. No definite fractures identified within the left knee. Of note, the left knee is slightly rotated resulting in suboptimal evaluation. IMPRESSION: 1. No acute fracture or dislocation within the right knee. 2. Moderate left knee effusion which may represent a lipohemarthrosis. No definite fractures within the left knee. However, the presence of a lipohemarthrosis is concerning for an occult fracture. ACT 112: Negative or not required by law. Electronically signed by: Richard Garcia M.D. 10/23/2022 7:34 PM PG Care Time/CCT Total # of Minutes Spent Total Time Spent with Patient: Total time spent is greater than 50% in coordination of care (as documented) at patient's floor/unit and/or counseling patient: Coding Level of Care Code 48435 INT INP/OBS CARE 75MIN Diagnoses UTI (urinary tract infection) N39.0 Knee pain M25.569 A-fib I48.91 COPD (chronic obstructive pulmonary disease) J44.9 COPD type: unspecified COPD Metabolic acidosis E87.2 GERD (gastroesophageal reflux disease) K21.9 CKD (chronic kidney disease) N18.9 Chronic kidney disease stage: unspecified stage Chronic indwelling Mccollum catheter Z97.8 Diastolic CHF I50.33 Heart failure chronicity: acute on chronic DMII (diabetes mellitus, type 2) E11.69; Z79.4 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 use: with ferry terminal supervisor use Diabetes mellitus complication status: with other specified complication Hypertension I10 Hypertension type: essential hypertension (4) COPD (chronic obstructive pulmonary disease) COPD type: unspecified COPD Qualified Code(s): J44.9 - Chronic obstructive pulmonary disease, unspecified (7) CKD (chronic kidney disease) Chronic kidney disease stage: unspecified stage Qualified Code(s): N18.9 - Chronic kidney disease, unspecified (9) Diastolic CHF Heart failure chronicity: acute on chronic Qualified Code(s): I50.33 - Acute on chronic diastolic (congestive) heart failure (10) DMII (diabetes mellitus, type 2) 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 use: with alf use Diabetes mellitus complication status: with other specified complication Qualified Code(s): E11.69 - Type 2 diabetes mellitus with other specified complication; Z79.4 - long term care phlebotomist (current) use of insulin (11) Hypertension Hypertension type: essential hypertension Qualified Code(s): I10 - Essential (primary) hypertension
[2022-10-23] MEDS ORDERED: GLUCOSE 40% GEL 15 GM TUBE PO PRN (23:39)
[2022-10-23] MEDS ORDERED: GLUCOSE 10 TAB/TUBE PO PRN (23:39)
[2022-10-23] MEDS ORDERED: DEXTROSE 50% 50 ML SYRINGE IV PRN (23:39)
[2022-10-23] MEDS ORDERED: SODIUM CHLORIDE 0.9% 1000ML 1,000 ML IV SCH (23:39)
[2022-10-23] MEDS ORDERED: CARBOHYDRATES FOR HYPOGLYCEMIA PO PRN (23:39)
[2022-10-23] MEDS ORDERED: LORazepam 0.5 MG TAB PO PRN (23:39)
[2022-10-23] MEDS ORDERED: GLUCAGON FOR INJ 1 MG VIAL SQ PRN (23:39)
[2022-10-24] MEDS: LANTUS PER UNIT CHARGE SQ SCH ×3 (00:21→21:16)
[2022-10-24] MEDS: oxyCODONE HCL IR 5 MG TAB (IMMEDIATE RELEASE) PO PRN ×2 (00:21→13:38)
[2022-10-24] MEDS: APIXABAN 2.5 MG TAB PO SCH ×2 (00:21→08:24)
[2022-10-24] MEDS: ACETAMINOPHEN 500 MG TAB PO SCH ×4 (00:21→21:16)
[2022-10-24] MEDS: INSULIN ASPART PER UNIT CHARGE SC SCH ×5 (00:22→21:17)
[2022-10-24] MEDS: cefTRIAXone SODIUM 1,000 MG in DEXTROSE 5% AD-VAN 50 ML IV SCH (03:42)
[2022-10-24 07:22] LABS: Hemoglobin 11.6 g/dl (12.0-16.0); Mean Corpuscular Hemoglobin 26.3 pg (25.0-34.0); Mean Corpuscular Hgb Conc 31.4 g/dL (32.0-36.0); Mean Corpuscular Volume 83.9 fL (80.0-100.0); Mean Platelet Volume 11.2 fL (9.4-12.4); Platelet Count 294 K/uL (130-400); RDW Coefficient of Variation 15.9 % (11.5-14.5); RDW Standard Deviation 48.2 fL (36.4-46.3); Red Blood Count 4.41 M/uL (4.20-5.40); White Blood Count 7.35 K/ul (4.8-10.8)
[2022-10-24 07:33] LABS: BUN Creatinine Ratio 11.1 (10-20); Calcium 8.5 mg/dl (8.6-10.3); Creatinine Clr Calc Pharmacy 20.5 ml/min; Potassium 4.2 mmol/L (3.5-5.1)
[2022-10-24] MEDS: amLODIPine BESYLATE 5 MG TAB PO SCH (08:23)
[2022-10-24] MEDS: CALCITRIOL 0.25 MCG CAPSULE PO SCH (08:24)
[2022-10-24] MEDS: GABAPENTIN 100 MG CAP PO SCH ×2 (08:25→15:45)
[2022-10-24] MEDS: FUROSEMIDE 40 MG TAB PO SCH (08:25)
[2022-10-24] MEDS: MIRABEGRON ER 25 MG TAB PO SCH (08:26)
[2022-10-24] MEDS: SERTRALINE HCL 50 MG TABLET PO SCH (08:27)
[2022-10-24] MEDS: SODIUM BICARBONATE 650 MG TAB PO SCH (08:27)
[2022-10-24] MEDS: PANTOprazole 40 MG TAB PO SCH (08:27)
--- NOTE | 2022-10-24 08:52 | Hospitalist Progress Note ---
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 hematoma, midline shift, acute infarct. White matter hypodensity is nonspecific but suggestive of microvascular ischemic change. The ventricles and sulci demonstrate mild age-related involutional changes. 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 This remains unchanged. Impression: 1. No acute infarct or intracranial hemorrhage. 2. Acute on chronic left sphenoid sinusitis which has progressed. ACT 112: Negative or not required by law. Electronically signed by: Richard Garcia M.D. 10/23/2022 6:22 PM Knee X-Ray 10/23/22 17:46 XR knee RT 1 or 2V routine, XR knee LT 1 or 2V routine CLINICAL HISTORY: Bilateral knee pain. COMPARISON STUDY: Bilateral knees 02/09/2014. FINDINGS: The bones are osteopenic resulting in suboptimal evaluation. No acute fracture or dislocation within the right knee. No right knee effusion. Vascular calcifications are noted. 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 There is a moderate left knee effusion which may represent a lipohemarthrosis. No definite fractures identified within the left knee. Of note, the left knee is slightly rotated resulting in suboptimal evaluation. IMPRESSION: 1. No acute fracture or dislocation within the right knee. 2. Moderate left knee effusion which may represent a lipohemarthrosis. No definite fractures within the left knee. However, the presence of a lipohemart hrosis is concerning for an occult fracture. ACT 112: Negative or not required by law. Electronically signed by: Richard Garcia M.D. 10/23/2022 7:34 PM Knee X-Ray 10/23/22 17:46 XR knee RT 1 or 2V routine, XR knee LT 1 or 2V routine CLINICAL HISTORY: Bilateral knee pain. COMPARISON STUDY: Bilateral knees 02/09/2014. FINDINGS: The bones are osteopenic resulting in suboptimal evaluation. No acute fracture or dislocation within the right knee. No right knee effusion. Vascular calcifications are noted. 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 There is a moderate left knee effusion which may represent a lipohemarthrosis. No definite fractures identified within the left knee. Of note, the left knee is slightly rotated resulting in suboptimal evaluation. IMPRESSION: 1. No acute fracture or dislocation within the right knee. 2. Moderate left knee effusion which may represent a lipohemarthrosis. No def inite fractures within the left knee. However, the presence of a lipohemarthrosis is concerning for an occult fracture. ACT 112: Negative or not required by law. Electronically signed by: Richard Garcia M.D. 10/23/2022 7:34 PM PG Care Time/CCT Total # of Minutes Spent Total Time Spent with Patient: Total time spent is greater than 50% in coordination of care (as documented) at patient's floor/unit and/or counseling patient: Coding Level of Care Code 21241 SUB INP/OBS CARE 350MIN Diagnoses UTI (urinary tract infection) N39.0 Knee pain M25.569 CKD (chronic kidney disease) N18.9 Chronic kidney disease stage: unspecified stage Diastolic CHF I50.33 Heart failure chronicity: acute on chronic Hyponatremia E87.1 A-fib I48.91 DMII (diabetes mellitus, type 2) E11.69; Z79.4 Diabetes mellitus complication status: with other specified complication Diabetes mellitus manager intermediate insulin use: with fpc use Hypertension I10 Hypertension type: essential hypertension COPD (chronic obstructive pulmonary disease) J44.9 COPD type: unspecified COPD Metabolic acidosis E87.2 GERD (gastroesophageal reflux disease) K21.9 Chronic indwelling Hodges catheter Z97.8 Effusion of left knee joint M25.462 (3) CKD (chronic kidney disease) Chronic kidney disease stage: unspecified stage Qualified Code(s): N18.9 - Chronic kidney disease, unspecified (4) Diastolic CHF Heart failure chronicity: acute on chronic Qualified Code(s): I50.33 - Acute on chronic diastolic (congestive) heart failure (7) DMII (diabetes mellitus, type 2) Diabetes mellitus complication status: with other specified complication Diabetes mellitus manager intermediate insulin use: with fpc use Qualified Code(s): E11.69 - Type 2 diabetes mellitus with other specified complication; Z79.4 - halfway (current) use of insulin (8) Hypertension Hypertension type: essential hypertension Qualified Code(s): I10 - Essential (primary) hypertension (9) COPD (chronic obstructive pulmonary disease) COPD type: unspecified COPD Qualified Code(s): J44.9 - Chronic obstructive pulmonary disease, unspecified
--- NOTE | 2022-10-24 11:27 | Electrocardiogram Report ---
Test Reason : Blood Pressure : / mmHG Vent. Rate : 095 BPM Atrial Rate : 129 BPM P-R Int : 000 ms QRS Dur : 058 ms QT Int : 338 ms P-R-T Axes : 000 -14 091 degrees QTc Int : 424 ms Atrial fibrillation Low voltage QRS possible Inferior infarct , age undetermined Poor R wave progression, consider anterior FL vs. lead placement vs. LVH Abnormal ECG Confirmed by Sonny Edmonds ([id number]) on 10/24/2022 11:27:29 AM Referred By: REFERRED SELF Confirmed By:Desmond Edmonds
--- NOTE | 2022-10-24 11:36 | Orthopedic Consultation ---
Date of Consultation October 24, 2022 Assessment & Plan (1) Effusion of left knee joint: Discussed case with Dr. Don. Recommending repeat imaging, AP view with 2 oblique views, ordered. We will continue with knee immobilizer at this time as well as ice to the left knee She is nonambulatory Does not appear to have any signs of infection. WBC is wnl. She is on anticoagulation which due to the knee being stuck could have caused the effusion. However cannot rule out occult fracture, will review imaging once completed May want to consider uric acid, ESR and CRP. Continue with pain management per primary Continue d/c planning per CM Present on Admission?: Yes History of Present Illness Reason for Consultation: Left knee pain and effusion Attending Physician: Shaq Emerson MD History of Present Illness Patient is a 76-year-old female who has the history of a [place], chronic kidney disease, COPD, hypertension, anemia, A-fib on anticoagulation,and diabetes. She was seen today bedside at the request of the hospitalist in regards to left knee pain and effusion. Patient explains that she resides with her son at [facility] in [facility]. She explains she is bed ridden and has been for the past 10 years. She reports having a hospital bed. She explains on Thursday of this week she was rolling and her left knee got caught between 2 bars on the railing. She states she was position there for short amount of time but since that incident her left knee has been painful. She denies any fall or any other injury. She explains that the knees have bothered her and she has had limited mobility in the knees for years. She denies any redness around the knees or any treatment prior to being seen today for her knees. She states she has no pain in the knee unless the leg is moved. She reports since having the knee immobilizer on the pain has substantially decreased. She reports her pain at this time is 0/10 at rest however it increases to 10/10 with any movement. She has taken narcotics previously for pain control. She also has a history of having an indwelling catheter long-term and is being treated for a UTI. She denies any fever, chills, night sweats. She denies any physical abuse and states her son takes good care of her. Allergies Allergy/AdvReac Type Severity Reaction Status Date / Time Latex, Natural Rubber Allergy Mild Rash Verified 01/01/21 20:46 tramadol Allergy Unknown Unverified 01/01/21 17:54 nickel AdvReac Rash Verified 01/01/21 20:47 Home Medications Medication Instructions Recorded Confirmed Type acetaminophen 500 mg tablet 500 - 1,000 mg PO Q6H PRN Pain 12/25/19 10/23/22 History (Tylenol Extra Strength) Wheelchair (Manual) #1 ea 12/30/19 08/23/20 Rx nebulizers #1 ea 01/03/20 08/23/20 Rx promethazine 25 mg tablet 25 mg PO Q6H PRN nausea and 12/24/20 10/23/22 Rx vomiting #30 tabs albuterol sulfate 90 mcg/actuation 2 inh inhalation QID PRN shortness 01/01/21 10/23/22 History breath activated powder inhaler of breath or wheezing bumetanide 1 mg tablet 1 mg PO BID17 30 days #30 tabs 01/04/21 10/23/22 Rx ergocalciferol (vitamin D2) 1,250 50,000 unit PO Q7D #8 caps 01/04/21 10/23/22 Rx mcg (50,000 unit) capsule insulin syringe-needle U-100 0.5 #100 ea 01/04/21 Rx mL 29 gauge x 1/2" (Insulin Syringe) lorazepam 0.5 mg tablet 0.5 mg PO Q4H PRN Anxiety #30 tabs 01/21/21 10/23/22 Rx apixaban 2.5 mg tablet (Eliquis) 2.5 mg PO BID 30 days #60 tabs 09/05/21 10/23/22 Rx blood sugar diagnostic #50 ea 10/28/21 Rx insulin aspart U-100 100 unit/mL See Rx Instructions .Route 10/28/21 10/23/22 Rx (3 mL) subcutaneous pen (Novolog .COMPLEX #15 mL FlexPen U-100 Insulin aspart) omeprazole 20 mg capsule,delayed 20 mg PO BID #60 caps 01/24/22 10/23/22 Rx release Hospital [facility] (Hospital #1 ea 01/31/22 Rx Bed) nebulizer accessories #1 ea 01/31/22 Rx calcitriol 0.25 mcg capsule 0.25 mcg PO QAM 30 days #30 caps 02/20/22 10/23/22 Rx sodium bicarbonate 650 mg tablet 650 mg PO DAILY #30 tabs 02/20/22 10/23/22 Rx 20 g [place] Catheter #1 ea 05/02/22 Rx gabapentin 300 mg capsule 300 mg PO TID #90 caps 07/01/22 10/23/22 Rx sertraline 25 mg tablet 25 mg PO DAILY #30 tabs 08/20/22 10/23/22 Rx amlodipine 2.5 mg tablet 2.5 mg PO QAM 10/23/22 10/23/22 History furosemide 40 mg tablet 40 mg PO DAILY 10/23/22 10/23/22 History insulin glargine 100 unit/mL (3 10 unit subcut AMPM 10/23/22 10/23/22 History mL) subcutaneous pen (Lantus Solostar U-100 Insulin) mirabegron 25 mg tablet,extended 25 mg PO DAILY 10/23/22 10/23/22 History release 24 hr (Myrbetriq) Patient History Medical History (Updated 10/24/22 @ 11:36 by BUSHRA Pittman) A-fib AMI (acute myocardial infarction) Anemia ARF (acute renal failure) Bronchitis Chronic kidney disease COPD (chronic obstructive pulmonary disease) Diabetes Fall in home Fracture of right distal radius Fracture of right ulnar styloid Hypertension Hypoglycemia Hyponatremia Insulin overdose Left sided chest pain Narcotic-induced nausea and vomiting Permanent atrial fibrillation PNA (pneumonia) Renal insufficiency Shortness of breath UTI (urinary tract infection) Surgical History History of cataract surgery History of esophagogastroduodenoscopy (EGD) History of lung surgery Family History Unknown Diabetes Pancreatic cancer Lung cancer Coronary heart disease Breast cancer Other Family history non-contributory Denies family history of Ovarian cancer Prostate cancer Myocardial infarction Colorectal cancer Social History Smoking Status: Former smoker Second Hand Exposure: No; Hx Alcohol Use: No Hx Substance Use: No Preferred Language: Zimbabwean Communication Ability: Effective 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 She is pleasant and conversive. Musculoskeletal/Integumentary: Left lower extremity is positioned straight with knee immobilizer and ice over top. Right knee is straight has an ulcer over the proximal ortiz that scabbed negative for any erythema or drainage. The knee immobilizer was removed patient had increased complaints of pain and appeared to be in pain. The skin is normal in color and temperature. Negative for any erythema or ecchymosis or signs of trauma. There is a moderate effusion. She has increased sensitivity over the left knee. Unable to tolerate any patella mobility. She was unable to tolerate any knee range of motion past approximately 5 degrees of flexion. She is sensitive on the right knee as well. There is no effusion on the right knee. She is limited with range of motion to approximately 10 degrees knee flexion. Neg for any shortening or external rotation of the lower extremities. Bilateral feet have scabbed areas. No apparent sign of infection.Knee immobilizer was put back on and ice pack was applied. Patient had relief with this. Results & Data Vital Signs (Past 12 Hours) Vital Signs Temp Pulse Resp BP BP Pulse Ox O2 Del Method 10/24/22 08:22 35.9 C L 72 16 111/60 99 Room Air 10/23/22 23:43 36.5 C 85 15 152/76 H 99 Room Air 10/23/22 23:41 Room Air 10/23/22 23:41 36.5 C 86 16 152/76 H 99 Room Air Laboratory Results 10/24/22 10/24/22 10/24/22 Range/Units 10:56 10:56 08:24 WBC (4.8-10.8) K/ul RBC (4.20-5.40) M/uL Hgb (12.0-16.0) g/dl Hct (37.0-47.0) % MCV (80.0-100.0) fL MCH (25.0-34.0) pg MCHC (32.0-36.0) g/dL RDW Std Deviation (36.4-46.3) fL RDW Coeff of Michael (11.5-14.5) % Plt Count (130-400) K/uL MPV (9.4-12.4) fL Immature Gran % (Auto) % Neut % (Auto) % Lymph % (Auto) % [place] % (Auto) % Eos % (Auto) % Baso % (Auto) % Neut # (Auto) (1.40-6.50) K/uL Lymph # (Auto) (1.2-3.4) K/uL [place] # (Auto) (0.11-0.59) K/uL Eos # (Auto) (0-0.50) K/uL Baso # (Auto) (0-0.2) K/uL Immature Gran # (Auto) (0.01-0.20) K/uL PT (9.0-12.0) Seconds INR (0.9-1.1) Sodium (136-145) mmol/L Potassium (3.5-5.1) mmol/L Chloride (98-107) mmol/L Carbon Dioxide (21-32) mmol/L Anion Gap (3-11) BUN (6-23) mg/dl Creatinine (0.6-1.2) mg/dl Est Cr Clr Drug Dosing ml/min Est GFR ( Amer) ml/min Est GFR (Non-Af Amer) ml/min BUN/Creatinine Ratio (10-20) Glucose (70-99(Fasting)) mg/dl POC Glucose 114 H (70-99) mg/dl Osmolality (280-300) mOsm/kg Calcium (8.6-10.3) mg/dl Magnesium (1.7-2.4) mg/dl Total Bilirubin (0.2-1.0) mg/dl AST (13-39) U/L ALT (7-52) U/L Alkaline Phosphatase (34-104) U/L Total Creatine Kinase (26-192) U/L Troponin I High Sens (0-14) pg/ml Total Protein (6.0-8.3) gm/dl Albumin (3.4-5.0) gm/dl Globulin (2.5-4.0) gm/dl Albumin/Globulin Ratio (0.9-2) Procalcitonin (0-0.5) ng/ml TSH (0.300-4.500) uIu/ml Urine Color Urine Appearance (Clear) Urine pH (4.5-7.5) Ur Specific [place] (1.000-1.030) Urine Protein (Negative) Urine Glucose (UA) (Negative) Urine Ketones (Negative) Urine Blood (Negative) Urine Nitrite (Negative) Urine Bilirubin (Negative) Urine Urobilinogen (Negative) Ur Leukocyte Esterase (Negative) Urine RBC (0-4) /hpf Urine WBC (0-5) /hpf Ur Epithelial Cells (0-5) /lpf Urine Bacteria (Negative) Urine Yeast (None Prsent) Urine Osmolality Pending Ur Random Sodium Pending Urine Opiates Screen (Neg) Ur Methadone, Qual (Neg) Urine Barbiturates (Neg) Ur Phencyclidine (PCP) (Neg) U Amphetamin/Meth Scrn (Neg) MDMA (Ecstasy) Screen (Neg) U Benzodiazepines Scrn (Neg) Ur Cocaine Metabolite (Neg) U Marijuana (THC) Screen (Neg) SARS-CoV-2, RNA, NAAT (NEGATIVE) 10/24/22 10/24/22 10/24/22 Range/Units 08:04 08:04 06:37 WBC (4.8-10.8) K/ul RBC (4.20-5.40) M/uL Hgb (12.0-16.0) g/dl Hct (37.0-47.0) % MCV (80.0-100.0) fL MCH (25.0-34.0) pg MCHC (32.0-36.0) g/dL RDW Std Deviation (36.4-46.3) fL RDW Coeff of Michael (11.5-14.5) % Plt Count (130-400) K/uL MPV (9.4-12.4) fL Immature Gran % (Auto) % Neut % (Auto) % Lymph % (Auto) % [place] % (Auto) % Eos % (Auto) % Baso % (Auto) % Neut # (Auto) (1.40-6.50) K/uL Lymph # (Auto) (1.2-3.4) K/uL [place] # (Auto) (0.11-0.59) K/uL Eos # (Auto) (0-0.50) K/uL Baso # (Auto) (0-0.2) K/uL Immature Gran # (Auto) (0.01-0.20) K/uL PT (9.0-12.0) Seconds INR (0.9-1.1) Sodium 129 L (136-145) mmol/L Potassium 4.2 (3.5-5.1) mmol/L Chloride 103 (98-107) mmol/L Carbon Dioxide 21 (21-32) mmol/L Anion Gap 5 (3-11) BUN 21 (6-23) mg/dl Creatinine 1.90 H (0.6-1.2) mg/dl Est Cr Clr Drug Dosing 20.5 ml/min Est GFR ( Amer) 29.0 ml/min Est GFR (Non-Af Amer) 25.0 ml/min BUN/Creatinine Ratio 11.1 (10-20) Glucose 109 H (70-99(Fasting)) mg/dl POC Glucose (70-99) mg/dl Osmolality 281 (280-300) mOsm/kg Calcium 8.5 L (8.6-10.3) mg/dl Magnesium (1.7-2.4) mg/dl Total Bilirubin (0.2-1.0) mg/dl AST (13-39) U/L ALT (7-52) U/L Alkaline Phosphatase (34-104) U/L Total Creatine Kinase (26-192) U/L Troponin I High Sens (0-14) pg/ml Total Protein (6.0-8.3) gm/dl Albumin (3.4-5.0) gm/dl Globulin (2.5-4.0) gm/dl Albumin/Globulin Ratio (0.9-2) Procalcitonin 0.11 (0-0.5) ng/ml TSH (0.300-4.500) uIu/ml Urine Color Urine Appearance (Clear) Urine pH (4.5-7.5) Ur Specific [place] (1.000-1.030) Urine Protein (Negative) Urine Glucose (UA) (Negative) Urine Ketones (Negative) Urine Blood (Negative) Urine Nitrite (Negative) Urine Bilirubin (Negative) Urine Urobilinogen (Negative) Ur Leukocyte Esterase (Negative) Urine RBC (0-4) /hpf Urine WBC (0-5) /hpf Ur Epithelial Cells (0-5) /lpf Urine Bacteria (Negative) Urine Yeast (None Prsent) Urine Osmolality Ur Random Sodium Urine Opiates Screen (Neg) Ur Methadone, Qual (Neg) Urine Barbiturates (Neg) Ur Phencyclidine (PCP) (Neg) U Amphetamin/Meth Scrn (Neg) MDMA (Ecstasy) Screen (Neg) U Benzodiazepines Scrn (Neg) Ur Cocaine Metabolite (Neg) U Marijuana (THC) Screen (Neg) SARS-CoV-2, RNA, NAAT (NEGATIVE) 10/24/22 10/23/22 10/23/22 Range/Units 06:37 23:35 18:53 WBC 7.35 (4.8-10.8) K/ul RBC 4.41 (4.20-5.40) M/uL Hgb 11.6 L (12.0-16.0) g/dl Hct 37.0 (37.0-47.0) % MCV 83.9 (80.0-100.0) fL MCH 26.3 (25.0-34.0) pg MCHC 31.4 L (32.0-36.0) g/dL RDW Std Deviation 48.2 H (36.4-46.3) fL RDW Coeff of Michael 15.9 H (11.5-14.5) % Plt Count 294 (130-400) K/uL MPV 11.2 (9.4-12.4) fL Immature Gran % (Auto) % Neut % (Auto) % Lymph % (Auto) % [place] % (Auto) % Eos % (Auto) % Baso % (Auto) % Neut # (Auto) (1.40-6.50) K/uL Lymph # (Auto) (1.2-3.4) K/uL [place] # (Auto) (0.11-0.59) K/uL Eos # (Auto) (0-0.50) K/uL Baso # (Auto) (0-0.2) K/uL Immature Gran # (Auto) (0.01-0.20) K/uL PT (9.0-12.0) Seconds INR (0.9-1.1) Sodium (136-145) mmol/L Potassium (3.5-5.1) mmol/L Chloride (98-107) mmol/L Carbon Dioxide (21-32) mmol/L Anion Gap (3-11) BUN (6-23) mg/dl Creatinine (0.6-1.2) mg/dl Est Cr Clr Drug Dosing ml/min Est GFR ( Amer) ml/min Est GFR (Non-Af Amer) ml/min BUN/Creatinine Ratio (10-20) Glucose (70-99(Fasting)) mg/dl POC Glucose 235 H (70-99) mg/dl Osmolality (280-300) mOsm/kg Calcium (8.6-10.3) mg/dl Magnesium (1.7-2.4) mg/dl Total Bilirubin (0.2-1.0) mg/dl AST (13-39) U/L ALT (7-52) U/L Alkaline Phosphatase (34-104) U/L Total Creatine Kinase (26-192) U/L Troponin I High Sens (0-14) pg/ml Total Protein (6.0-8.3) gm/dl Albumin (3.4-5.0) gm/dl Globulin (2.5-4.0) gm/dl Albumin/Globulin Ratio (0.9-2) Procalcitonin (0-0.5) ng/ml TSH (0.300-4.500) uIu/ml Urine Color Straw Urine Appearance Turbid A (Clear) Urine pH 5.5 (4.5-7.5) Ur Specific [place] 1.025 (1.000-1.030) Urine Protein 3+ H (Negative) Urine Glucose (UA) Negative (Negative) Urine Ketones Trace H (Negative) Urine Blood 2+ H (Negative) Urine Nitrite Positive A (Negative) Urine Bilirubin Negative (Negative) Urine Urobilinogen Negative (Negative) Ur Leukocyte Esterase 3+ H (Negative) Urine RBC 5-10 H (0-4) /hpf Urine WBC >30 H (0-5) /hpf Ur Epithelial Cells 0-5 (0-5) /lpf Urine Bacteria 3+ H (Negative) Urine Yeast Budding w/ Hyphae A (None Prsent) Urine Osmolality Ur Random Sodium Urine Opiates Screen (Neg) Ur Methadone, Qual (Neg) Urine Barbiturates (Neg) Ur Phencyclidine (PCP) (Neg) U Amphetamin/Meth Scrn (Neg) MDMA (Ecstasy) Screen (Neg) U Benzodiazepines Scrn (Neg) Ur Cocaine Metabolite (Neg) U Marijuana (THC) Screen (Neg) SARS-CoV-2, RNA, NAAT (NEGATIVE) 10/23/22 10/23/22 10/23/22 Range/Units 18:53 17:48 17:48 WBC (4.8-10.8) K/ul RBC (4.20-5.40) M/uL Hgb (12.0-16.0) g/dl Hct (37.0-47.0) % MCV (80.0-100.0) fL MCH (25.0-34.0) pg MCHC (32.0-36.0) g/dL RDW Std Deviation (36.4-46.3) fL RDW Coeff of Michael (11.5-14.5) % Plt Count (130-400) K/uL MPV (9.4-12.4) fL Immature Gran % (Auto) % Neut % (Auto) % Lymph % (Auto) % [place] % (Auto) % Eos % (Auto) % Baso % (Auto) % Neut # (Auto) (1.40-6.50) K/uL Lymph # (Auto) (1.2-3.4) K/uL [place] # (Auto) (0.11-0.59) K/uL Eos # (Auto) (0-0.50) K/uL Baso # (Auto) (0-0.2) K/uL Immature Gran # (Auto) (0.01-0.20) K/uL PT (9.0-12.0) Seconds INR (0.9-1.1) Sodium 132 L (136-145) mmol/L Potassium 4.3 (3.5-5.1) mmol/L Chloride 102 (98-107) mmol/L Carbon Dioxide 21 (21-32) mmol/L Anion Gap 9 (3-11) BUN 20 (6-23) mg/dl Creatinine 1.86 H (0.6-1.2) mg/dl Est Cr Clr Drug Dosing 20.4 ml/min Est GFR ( Amer) 29.7 ml/min Est GFR (Non-Af Amer) 25.6 ml/min BUN/Creatinine Ratio 10.8 (10-20) Glucose 205 H (70-99(Fasting)) mg/dl POC Glucose (70-99) mg/dl Osmolality (280-300) mOsm/kg Calcium 9.7 (8.6-10.3) mg/dl Magnesium 2.0 (1.7-2.4) mg/dl Total Bilirubin 0.4 (0.2-1.0) mg/dl AST 8 L (13-39) U/L ALT 6 L (7-52) U/L Alkaline Phosphatase 128 H (34-104) U/L Total Creatine Kinase 20 L (26-192) U/L Troponin I High Sens 12.4 (0-14) pg/ml Total Protein 7.5 (6.0-8.3) gm/dl Albumin 4.1 (3.4-5.0) gm/dl Globulin 3.4 (2.5-4.0) gm/dl Albumin/Globulin Ratio 1.2 (0.9-2) Procalcitonin (0-0.5) ng/ml TSH 1.685 (0.300-4.500) uIu/ml Urine Color Urine Appearance (Clear) Urine pH (4.5-7.5) Ur Specific [place] (1.000-1.030) Urine Protein (Negative) Urine Glucose (UA) (Negative) Urine Ketones (Negative) Urine Blood (Negative) Urine Nitrite (Negative) Urine Bilirubin (Negative) Urine Urobilinogen (Negative) Ur Leukocyte Esterase (Negative) Urine RBC (0-4) /hpf Urine WBC (0-5) /hpf Ur Epithelial Cells (0-5) /lpf Urine Bacteria (Negative) Urine Yeast (None Prsent) Urine Osmolality Ur Random Sodium Urine Opiates Screen Neg (Neg) Ur Methadone, Qual Neg (Neg) Urine Barbiturates Neg (Neg) Ur Phencyclidine (PCP) Neg (Neg) U Amphetamin/Meth Scrn Neg (Neg) MDMA (Ecstasy) Screen Neg (Neg) U Benzodiazepines Scrn Neg (Neg) Ur Cocaine Metabolite Neg (Neg) U Marijuana (THC) Screen Neg (Neg) SARS-CoV-2, RNA, NAAT (NEGATIVE) 10/23/22 10/23/22 10/23/22 Range/Units 17:48 17:48 17:46 WBC 7.77 (4.8-10.8) K/ul RBC 5.07 (4.20-5.40) M/uL Hgb 13.2 (12.0-16.0) g/dl Hct 42.5 (37.0-47.0) % MCV 83.8 (80.0-100.0) fL MCH 26.0 (25.0-34.0) pg MCHC 31.1 L (32.0-36.0) g/dL RDW Std Deviation 47.2 H (36.4-46.3) fL RDW Coeff of Michael 15.8 H (11.5-14.5) % Plt Count 327 (130-400) K/uL MPV 10.5 (9.4-12.4) fL Immature Gran % (Auto) 0.4 % Neut % (Auto) 80.2 % Lymph % (Auto) 12.2 % [place] % (Auto) 5.9 % Eos % (Auto) 0.8 % Baso % (Auto) 0.5 % Neut # (Auto) 6.23 (1.40-6.50) K/uL Lymph # (Auto) 0.95 L (1.2-3.4) K/uL [place] # (Auto) 0.46 (0.11-0.59) K/uL Eos # (Auto) 0.06 (0-0.50) K/uL Baso # (Auto) 0.04 (0-0.2) K/uL Immature Gran # (Auto) 0.03 (0.01-0.20) K/uL PT 10.3 (9.0-12.0) Seconds INR 1.0 (0.9-1.1) Sodium (136-145) mmol/L Potassium (3.5-5.1) mmol/L Chloride (98-107) mmol/L Carbon Dioxide (21-32) mmol/L Anion Gap (3-11) BUN (6-23) mg/dl Creatinine (0.6-1.2) mg/dl Est Cr Clr Drug Dosing ml/min Est GFR ( Amer) ml/min Est GFR (Non-Af Amer) ml/min BUN/Creatinine Ratio (10-20) Glucose (70-99(Fasting)) mg/dl POC Glucose (70-99) mg/dl Osmolality (280-300) mOsm/kg Calcium (8.6-10.3) mg/dl Magnesium (1.7-2.4) mg/dl Total Bilirubin (0.2-1.0) mg/dl AST (13-39) U/L ALT (7-52) U/L Alkaline Phosphatase (34-104) U/L Total Creatine Kinase (26-192) U/L Troponin I High Sens (0-14) pg/ml Total Protein (6.0-8.3) gm/dl Albumin (3.4-5.0) gm/dl Globulin (2.5-4.0) gm/dl Albumin/Globulin Ratio (0.9-2) Procalcitonin (0-0.5) ng/ml TSH (0.300-4.500) uIu/ml Urine Color Urine Appearance (Clear) Urine pH (4.5-7.5) Ur Specific [place] (1.000-1.030) Urine Protein (Negative) Urine Glucose (UA) (Negative) Urine Ketones (Negative) Urine Blood (Negative) Urine Nitrite (Negative) Urine Bilirubin (Negative) Urine Urobilinogen (Negative) Ur Leukocyte Esterase (Negative) Urine RBC (0-4) /hpf Urine WBC (0-5) /hpf Ur Epithelial Cells (0-5) /lpf Urine Bacteria (Negative) Urine Yeast (None Prsent) Urine Osmolality Ur Random Sodium Urine Opiates Screen (Neg) Ur Methadone, Qual (Neg) Urine Barbiturates (Neg) Ur Phencyclidine (PCP) (Neg) U Amphetamin/Meth Scrn (Neg) MDMA (Ecstasy) Screen (Neg) U Benzodiazepines Scrn (Neg) Ur Cocaine Metabolite (Neg) U Marijuana (THC) Screen (Neg) SARS-CoV-2, RNA, NAAT NEGATIVE (NEGATIVE) Diagnostic Findings Chest X-Ray 10/23/22 17:41 XR chest 1V portable HISTORY: weakness COMPARISON: Chest 01/03/2021. FINDINGS: There are low lung volumes. No pneumothorax. No pleural effusions. The correct silhouette remains mildly enlarged. There are old, healed left-sided rib fractures again noted. Focal hazy density within the the right upper lung is likely due to overlapping artifact. Otherwise, the lungs are clear. Calcifications again noted within the aortic knob. IMPRESSION: Focal hazy density within the right upper lobe is likely due to overlying artifact. Otherwise, no acute process within the chest. ACT 112: Negative or not required by law. Electronically signed by: Richard Garcia M.D. 10/23/2022 7:30 PM Pelvis X-Ray 10/23/22 17:41 XR pelvis 1-2V routine CLINICAL HISTORY: Fall. Pelvic pain. Weakness. COMPARISON STUDY: Pelvic radiograph 04/22/2019. FINDINGS: The bones are osteopenic. No acute fracture or dislocation. The sacrum appears intact. Basilar calcifications are noted. IMPRESSION: Osteopenia resulting in suboptimal evaluation. No definite acute fracture or dislocation within the pelvis or hips ACT 112: Negative or not required by law. Electronically signed by: Richard Garcia M.D. 10/23/2022 7:[address] 10/23/22 17:[address] DOSE: HISTORY: fall TECHNIQUE: Multiaxial CT images of the cervical spine were performed and reformatted in the sagittal and coronal plane without the use of contrast. A dose lowering technique was utilized adhering to the principles of ALARA. COMPARISON: Cervical spine CT 07/09/2017. FINDINGS: No fractures. No subluxation. Prevertebral soft tissues and the C1-C2 interval are intact. No pneumothorax. Levoscoliosis which may be positional. IMPRESSION: No fractures within the cervical spine. ACT 112: Negative or not required by law. Electronically signed by: Richard Garcia M.D. 10/23/2022 6:[address] 10/23/22 17:[address] DOSE: 816.25 mGy.cm HISTORY: Fall. TECHNIQUE: Multiaxial CT images of the head were performed without the use of intravenous contrast. Automated exposure control was utilized for this study. A dose lowering technique was utilized adhering to the principles of ALARA. Comparison: Head CT 12/19/2017. Findings: Fluid level with near complete opacification of the left sphenoid sinus. This has progressed. The mastoid air cells are clear. The calvarium and skull base are intact. There is no mass, hematoma, midline shift, acute infarct. White matter hypodensity is nonspecific but suggestive of microvascular ischemic change. The ventricles and sulci demonstrate mild age-related involutional changes. 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 This remains unchanged. Impression: 1. No acute infarct or intracranial hemorrhage. 2. Acute on chronic left sphenoid sinusitis which has progressed. ACT 112: Negative or not required by law. Electronically signed by: Richard Garcia M.D. 10/23/2022 6:22 PM Knee X-Ray 10/23/22 17:46 XR knee RT 1 or 2V routine, XR knee LT 1 or 2V routine CLINICAL HISTORY: Bilateral knee pain. COMPARISON STUDY: Bilateral knees 02/09/2014. FINDINGS: The bones are osteopenic resulting in suboptimal evaluation. No acute fracture or dislocation within the right knee. No right knee effusion. Vascular calcifications are noted. 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 There is a moderate left knee effusion which may represent a lipohemarthrosis. No definite fractures identified within the left knee. Of note, the left knee is slightly rotated resulting in suboptimal evaluation. IMPRESSION: 1. No acute fracture or dislocation within the right knee. 2. Moderate left knee effusion which may represent a lipohemarthrosis. No definite fractures within the left knee. However, the presence of a lipohemarthrosis is concerning for an occult fracture. ACT 112: Negative or not required by law. Electronically signed by: Richard Garcia M.D. 10/23/2022 7:34 PM Knee X-Ray 10/23/22 17:46 XR knee RT 1 or 2V routine, XR knee LT 1 or 2V routine CLINICAL HISTORY: Bilateral knee pain. COMPARISON STUDY: Bilateral knees 02/09/2014. FINDINGS: The bones are osteopenic resulting in suboptimal evaluation. No acute fracture or dislocation within the right knee. No right knee effusion. Vascular calcifications are noted. 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 There is a moderate left knee effusion which may represent a lipohemarthrosis. No definite fractures identified within the left knee. Of note, the left knee is slightly rotated resulting in suboptimal evaluation.
--- NOTE | 2022-10-24 12:17 | XRay Report ---
XR knee LT 3V CLINICAL HISTORY: AP view, and 2 obliques left knee effusion COMPARISON: Left knee radiographs October 23, 2022 and knee radiographs February 09, 2014. FINDINGS: Osteopenia is noted. There is mild varus deformity of the left knee. No definite acute fra cture is identified. There is slight cortical irregularity and possible cortical buckling of the late ral femoral condyle. No osseous lesion is identified. Mild degenerative changes within the left knee are present. Evaluation for joint effusion is suboptimal given difficulty positioning. There is a pro bable left knee joint effusion. Extensive vascular calcification is incidentally noted. There is left knee soft tissue swelling. IMPRESSION: 1. Subtle cortical irregularity and possible buckling of the lateral femoral condyle. This is likely chronic however an acute nondisplaced fracture could appear similar. No definite fracture. 2. Osteopenia. 3. Left knee joint effusion, suboptimally assessed given difficulty positioning. ACT 112: Negative or not required by law. Electronically signed by: Carlos Wang M.D. 10/24/2022 12:16 PM
--- NOTE | 2022-10-24 12:47 | XCELERA ---
[id number] [id number]
[2022-10-24] MEDS ORDERED: FAMOTIDINE 20 MG in SYRINGE 3 ML IV SCH (14:30)
[2022-10-24] MEDS ORDERED: SODIUM CHLORIDE 0.9% 1000ML 1,000 ML IV SCH (14:45)
--- NOTE | 2022-10-24 16:38 | Podiatry Consultation ---
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 When I left she was resting comfortably and did thank me for my visit today, she did note to me today that even the small amount of debridement I did perform did feel a slight bit better to her feet. She can follow-up with me as needed. History of Present Illness Reason for Consultation: Patient seen at bedside for diabetic foot care, unfortunately she did adamantly decline this she states she has significant pain Attending Physician: Shaq Emerson MD History of Present Illness Patient seen at bedside for diabetic foot care, unfortunately she did adamantly declined this due to the significant pain I did evaluate both feet I do feel that she has significant hammertoe deformity and severe atrophy of her skin, her skin was very thin she did have overgrown toenails that were significantly dystrophic. I do think maybe at some point if possible she would perhaps benefit from being seen in the office or I could lightly filed the nails as opposed to debridement. Otherwise she had some abrasions noted to the right dorsal aspect of the second toe and a large callus present on the dorsal aspect of the left fifth toe secondary to hammertoe deformity. I was not able to palpate any pulses and she was not able to easily lift her feet and I think this was secondary to both her knee injury that she currently has and is wearing a brace for but she also noted to me that she does not walk very easily. I do appreciate this consult and patient does change her mind please feel free to reach out to me and let me know. I did discuss with her that I be happy to see her in the office or we could provide may be just some filing of her toenails if she does ever decide to want this, more than happy to see her. Allergies Allergy/AdvReac Type Severity Reaction Status Date / Time Latex, Natural Rubber Allergy Mild Rash Verified 01/01/21 20:46 tramadol Allergy Unknown Unverified 01/01/21 17:54 nickel AdvReac Rash Verified 01/01/21 20:47 Home Medications Medication Instructions Recorded Confirmed Type acetaminophen 500 mg tablet 500 - 1,000 mg PO Q6H PRN Pain 12/25/19 10/23/22 History (Tylenol Extra Strength) Wheelchair (Manual) #1 ea 12/30/19 08/23/20 Rx nebulizers #1 ea 01/03/20 08/23/20 Rx promethazine 25 mg tablet 25 mg PO Q6H PRN nausea and 12/24/20 10/23/22 Rx vomiting #30 tabs albuterol sulfate 90 mcg/actuation 2 inh inhalation QID PRN shortness 01/01/21 10/23/22 History breath activated powder inhaler of breath or wheezing bumetanide 1 mg tablet 1 mg PO BID17 30 days #30 tabs 01/04/21 10/23/22 Rx ergocalciferol (vitamin D2) 1,250 50,000 unit PO Q7D #8 caps 01/04/21 10/23/22 Rx mcg (50,000 unit) capsule insulin syringe-needle U-100 0.5 #100 ea 01/04/21 Rx mL 29 gauge x 1/2" (Insulin Syringe) lorazepam 0.5 mg tablet 0.5 mg PO Q4H PRN Anxiety #30 tabs 01/21/21 10/23/22 Rx apixaban 2.5 mg tablet (Eliquis) 2.5 mg PO BID 30 days #60 tabs 09/05/21 10/23/22 Rx blood sugar diagnostic #50 ea 10/28/21 Rx insulin aspart U-100 100 unit/mL See Rx Instructions .Route 10/28/21 10/23/22 Rx (3 mL) subcutaneous pen (Novolog .COMPLEX #15 mL FlexPen U-100 Insulin aspart) omeprazole 20 mg capsule,delayed 20 mg PO BID #60 caps 01/24/22 10/23/22 Rx release Hospital Bed Home[facility] (Hospital #1 ea 01/31/22 Rx Bed) nebulizer accessories #1 ea 01/31/22 Rx calcitriol 0.25 mcg capsule 0.25 mcg PO QAM 30 days #30 caps 02/20/22 10/23/22 Rx sodium bicarbonate 650 mg tablet 650 mg PO DAILY #30 tabs 02/20/22 10/23/22 Rx 20 g Montenegrin Catheter #1 ea 05/02/22 Rx gabapentin 300 mg capsule 300 mg PO TID #90 caps 07/01/22 10/23/22 Rx sertraline 25 mg tablet 25 mg PO DAILY #30 tabs 08/20/22 10/23/22 Rx amlodipine 2.5 mg tablet 2.5 mg PO QAM 10/23/22 10/23/22 History furosemide 40 mg tablet 40 mg PO DAILY 10/23/22 10/23/22 History insulin glargine 100 unit/mL (3 10 unit subcut AMPM 10/23/22 10/23/22 History mL) subcutaneous pen (Lantus Solostar U-100 Insulin) mirabegron 25 mg tablet,extended 25 mg PO DAILY 10/23/22 10/23/22 History release 24 hr (Myrbetriq) Patient History Medical History A-fib AMI (acute myocardial infarction) Anemia ARF (acute renal failure) Bronchitis Chronic kidney disease COPD (chronic obstructive pulmonary disease) Diabetes Fall in home Fracture of right distal radius Fracture of right ulnar styloid Hypertension Hypoglycemia Hyponatremia Insulin overdose Left sided chest pain Narcotic-induced nausea and vomiting Permanent atrial fibrillation PNA (pneumonia) Renal insufficiency Shortness of breath UTI (urinary tract infection) Surgical History History of cataract surgery History of esophagogastroduodenoscopy (EGD) History of lung surgery Family History Unknown Diabetes Pancreatic cancer Lung cancer Coronary heart disease Breast cancer Other Family history non-contributory Denies family history of Ovarian cancer Prostate cancer Myocardial infarction Colorectal cancer Social History Smoking Status: Former smoker Second Hand Exposure: No; Hx Alcohol Use: No Hx Substance Use: No Preferred Language: Turkmen Communication Ability: Effective 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 Unable to palpate dorsalis pedis or posterior tibial pulse but I did appreciate warmth within the feet turgor pressure seem to be good to the distal extremities there were no gross abscesses open wounds or cellulitic areas but I did appreciate abrasions over the second toe. If she could tolerate something like Xeroform over the toe it may be beneficial but again she has very significant tenderness to the feet so perhaps she feels better just having her feet out I did even indicate to her that I would like to cover her feet up with a blanket and she stated that it was even very tender. Otherwise there were no air or other areas of costa concern with regards to the skin integrity of her feet. I did appreciate her toenails were overgrown and thickened and would benefit from debridement however given her pain level during the visit today she did asked me if I would not cut her toenails which I did respect. Results & Data Vital Signs (Past 12 Hours) Vital Signs Temp Pulse Resp BP Pulse Ox O2 Del Method 10/24/22 16:10 36.4 C L 96 H 12 103/68 98 Room Air 10/24/22 08:22 35.9 C L 72 16 111/60 99 Room Air
[2022-10-24] MEDS: GABAPENTIN 300 MG CAP PO SCH (21:16)
[2022-10-25] MEDS: cefTRIAXone SODIUM 1,000 MG in DEXTROSE 5% AD-VAN 50 ML IV SCH (03:58)
[2022-10-25 07:44] LABS: Hematocrit (blood only) 34.5 % (37.0-47.0); Hemoglobin 10.7 g/dl (12.0-16.0); Mean Corpuscular Hemoglobin 26.3 pg (25.0-34.0); Mean Corpuscular Volume 84.8 fL (80.0-100.0); Platelet Count 264 K/uL (130-400); RDW Coefficient of Variation 15.7 % (11.5-14.5); RDW Standard Deviation 48.7 fL (36.4-46.3); Red Blood Count 4.07 M/uL (4.20-5.40); White Blood Count 7.02 K/ul (4.8-10.8)
[2022-10-25 08:05] LABS: Albumin Level 3.2 gm/dl (3.4-5.0); Bilirubin,Total 0.2 mg/dl (0.2-1.0); C Reactive Protein 1.62 mg/dl (0-0.5); Magnesium 1.7 mg/dl (1.7-2.4); Uric Acid 3.3 mg/dl (2.6-7.2)
[2022-10-25] MEDS: GABAPENTIN 300 MG CAP PO SCH ×2 (08:10→20:55)
[2022-10-25] MEDS: CALCITRIOL 0.25 MCG CAPSULE PO SCH (08:10)
[2022-10-25] MEDS: PANTOprazole 40 MG TAB PO SCH (08:10)
[2022-10-25] MEDS: ACETAMINOPHEN 500 MG TAB PO SCH ×3 (08:10→20:53)
[2022-10-25] MEDS: amLODIPine BESYLATE 5 MG TAB PO SCH (08:10)
[2022-10-25] MEDS: SERTRALINE HCL 50 MG TABLET PO SCH (08:11)
[2022-10-25] MEDS: MIRABEGRON ER 25 MG TAB PO SCH (08:11)
[2022-10-25] MEDS: SODIUM BICARBONATE 650 MG TAB PO SCH (08:11)
[2022-10-25] MEDS: FAMOTIDINE 20 MG TAB PO SCH (08:17)
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
[2022-10-25] MEDS: INSULIN ASPART PER UNIT CHARGE SC SCH ×4 (09:14→20:56)
[2022-10-25] MEDS: LANTUS PER UNIT CHARGE SQ SCH ×2 (09:14→20:55)
[2022-10-25 09:17] LABS: BUN Creatinine Ratio 10.2 (10-20); Calcium 8.3 mg/dl (8.6-10.3); Creatinine Clr Calc Pharmacy 18.1 ml/min; Est GFR (African American) 24.9 ml/min; Est GFR (Non-African American) 21.5 ml/min; Potassium 4.1 mmol/L (3.5-5.1)
[2022-10-25] MEDS ORDERED: MAGNESIUM SULFATE / D5W 1 GM/100 ML BAG IV ONE (09:24)
[2022-10-25] MEDS ORDERED: SODIUM CHLORIDE 0.9% 500 ML IV SCH (09:30)
[2022-10-25] MEDS: ERGOCALCIFEROL 50,000 UNITS 1250 MCG CAP PO SCH (09:32)
[2022-10-25 10:38] LABS: Estimated Average Glucose 252 mg/dl; Hemoglobin A1C 10.4 % (4.5-5.6)
[2022-10-25] MEDS: oxyCODONE HCL IR 5 MG TAB (IMMEDIATE RELEASE) PO PRN (11:04)
[2022-10-26] MEDS: cefTRIAXone SODIUM 1,000 MG in DEXTROSE 5% AD-VAN 50 ML IV SCH (03:20)
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
[2022-10-26 08:49] LABS: Hematocrit (blood only) 34.4 % (37.0-47.0); Hemoglobin 10.4 g/dl (12.0-16.0); Mean Corpuscular Hemoglobin 26.3 pg (25.0-34.0); Mean Corpuscular Hgb Conc 30.2 g/dL (32.0-36.0); Mean Corpuscular Volume 86.9 fL (80.0-100.0); Mean Platelet Volume 10.5 fL (9.4-12.4); Platelet Count 270 K/uL (130-400); RDW Standard Deviation 50.7 fL (36.4-46.3); Red Blood Count 3.96 M/uL (4.20-5.40); White Blood Count 6.22 K/ul (4.8-10.8)
[2022-10-26 09:00] LABS: BUN Creatinine Ratio 13.2 (10-20); Calcium 8.5 mg/dl (8.6-10.3); Creatinine Clr Calc Pharmacy 19.8 ml/min; Est GFR (African American) 27.7 ml/min; Est GFR (Non-African American) 23.9 ml/min; Magnesium 2.2 mg/dl (1.7-2.4); Potassium 4.7 mmol/L (3.5-5.1)
[2022-10-26] MEDS: CALCITRIOL 0.25 MCG CAPSULE PO SCH (09:13)
[2022-10-26] MEDS: GABAPENTIN 300 MG CAP PO SCH ×2 (09:14→21:33)
[2022-10-26] MEDS: MIRABEGRON ER 25 MG TAB PO SCH (09:14)
[2022-10-26] MEDS: PANTOprazole 40 MG TAB PO SCH (09:14)
[2022-10-26] MEDS: SERTRALINE HCL 50 MG TABLET PO SCH (09:14)
[2022-10-26] MEDS: ACETAMINOPHEN 500 MG TAB PO SCH ×3 (09:14→21:33)
[2022-10-26] MEDS: SODIUM BICARBONATE 650 MG TAB PO SCH (09:15)
[2022-10-26] MEDS: amLODIPine BESYLATE 5 MG TAB PO SCH (09:15)
[2022-10-26 09:20] LABS: Ferritin 107.7 ng/ml (8-388)
[2022-10-26] MEDS: INSULIN ASPART PER UNIT CHARGE SC SCH ×4 (09:23→21:39)
[2022-10-26] MEDS: FAMOTIDINE 20 MG TAB PO SCH (09:23)
[2022-10-26] MEDS: LANTUS PER UNIT CHARGE SQ SCH ×2 (09:24→21:39)
[2022-10-26] MEDS: oxyCODONE HCL IR 5 MG TAB (IMMEDIATE RELEASE) PO PRN (09:28)
[2022-10-26] MEDS: CYANOCOBALAMIN 1000 MCG/ML VIAL IM SCH (10:28)
[2022-10-26] MEDS: FOLIC ACID 1 MG TAB PO SCH (10:28)
[2022-10-26] MEDS: IRON SUCROSE 300 MG in SODIUM CHLORIDE 0.9% 250 ML IV SCH (11:15)
[2022-10-27] MEDS: cefTRIAXone SODIUM 1,000 MG in DEXTROSE 5% AD-VAN 50 ML IV SCH (03:15)
[2022-10-27] MEDS: oxyCODONE HCL IR 5 MG TAB (IMMEDIATE RELEASE) PO PRN (07:40)
[2022-10-27] MEDS: FOLIC ACID 1 MG TAB PO SCH (08:30)
[2022-10-27] MEDS: PANTOprazole 40 MG TAB PO SCH (08:30)
[2022-10-27] MEDS: amLODIPine BESYLATE 5 MG TAB PO SCH (08:30)
[2022-10-27] MEDS: MIRABEGRON ER 25 MG TAB PO SCH (08:30)
[2022-10-27] MEDS: SODIUM BICARBONATE 650 MG TAB PO SCH (08:30)
[2022-10-27] MEDS: SERTRALINE HCL 50 MG TABLET PO SCH (08:30)
[2022-10-27] MEDS: ACETAMINOPHEN 500 MG TAB PO SCH ×3 (08:31→22:03)
[2022-10-27] MEDS: CALCITRIOL 0.25 MCG CAPSULE PO SCH (08:31)
[2022-10-27] MEDS: GABAPENTIN 300 MG CAP PO SCH ×2 (08:31→22:04)
[2022-10-27] MEDS: CYANOCOBALAMIN 1000 MCG/ML VIAL IM SCH (08:32)
[2022-10-27] MEDS: INSULIN ASPART PER UNIT CHARGE SC SCH ×4 (08:33→22:04)
[2022-10-27] MEDS: LANTUS PER UNIT CHARGE SQ SCH ×2 (08:38→22:04)
[2022-10-27] MEDS ORDERED: LIDOCAINE 1% LOCAL 20 ML VIAL INJ ONE (08:57)
[2022-10-27 09:23] LABS: Hematocrit (blood only) 33.2 % (37.0-47.0); Hemoglobin 10.1 g/dl (12.0-16.0); Mean Corpuscular Hemoglobin 26.3 pg (25.0-34.0); Mean Corpuscular Hgb Conc 30.4 g/dL (32.0-36.0); Mean Corpuscular Volume 86.5 fL (80.0-100.0); Platelet Count 289 K/uL (130-400); RDW Coefficient of Variation 16.6 % (11.5-14.5); RDW Standard Deviation 52.1 fL (36.4-46.3); Red Blood Count 3.84 M/uL (4.20-5.40); White Blood Count 5.81 K/ul (4.8-10.8)
[2022-10-27 09:45] LABS: BUN Creatinine Ratio 12.1 (10-20); Calcium 8.7 mg/dl (8.6-10.3); Creatinine Clr Calc Pharmacy 17.4 ml/min; Est GFR (African American) 23.7 ml/min; Est GFR (Non-African American) 20.5 ml/min; Potassium 4.8 mmol/L (3.5-5.1)
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
[2022-10-27] MEDS: FAMOTIDINE 20 MG TAB PO SCH (11:42)
[2022-10-27] MEDS: IRON SUCROSE 300 MG in SODIUM CHLORIDE 0.9% 250 ML IV SCH (11:42)
[2022-10-27 12:37] LABS: Appearance Synovial Fluid Bloody; Color Synovial Fluid Red; Mononuclear WBC Synovial 29.7 %; Polynuclear WBC Synovial 70.3 %; RBC Synovial Fluid Auto 8215000 /uL; Source Synovial Fluid Left Knee; WBC Synovial Fluid Auto 4130 /ul (0-200)
[2022-10-27] MEDS ORDERED: AMMONIUM LACTATE 12% LOTION 225 GM BTL EXT PRN (15:28)
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
[2022-10-28] MEDS: oxyCODONE HCL IR 5 MG TAB (IMMEDIATE RELEASE) PO PRN (03:29)
[2022-10-28] MEDS: cefTRIAXone SODIUM 1,000 MG in DEXTROSE 5% AD-VAN 50 ML IV SCH (03:53)
[2022-10-28] MEDS ORDERED: oxyCODONE HCL IR 5 MG TAB (IMMEDIATE RELEASE) PO STA (06:01)
[2022-10-28] MEDS ORDERED: LANTUS PER UNIT CHARGE SQ ONE (06:56)
[2022-10-28] MEDS ORDERED: INSULIN ASPART PER UNIT CHARGE SC ONE (06:56)
[2022-10-28 07:32] LABS: Hematocrit (blood only) 30.6 % (37.0-47.0); Hemoglobin 9.3 g/dl (12.0-16.0); Mean Corpuscular Hemoglobin 26.1 pg (25.0-34.0); Mean Corpuscular Hgb Conc 30.4 g/dL (32.0-36.0); Mean Corpuscular Volume 85.7 fL (80.0-100.0); Mean Platelet Volume 10.6 fL (9.4-12.4); Platelet Count 268 K/uL (130-400); RDW Coefficient of Variation 16.9 % (11.5-14.5); RDW Standard Deviation 52.3 fL (36.4-46.3); Red Blood Count 3.57 M/uL (4.20-5.40); White Blood Count 6.42 K/ul (4.8-10.8)
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
[2022-10-28 08:15] LABS: BUN Creatinine Ratio 14.2 (10-20); Calcium 8.5 mg/dl (8.6-10.3); Creatinine Clr Calc Pharmacy 19.8 ml/min; Est GFR (African American) 27.7 ml/min; Est GFR (Non-African American) 23.9 ml/min; Potassium 4.1 mmol/L (3.5-5.1)
[2022-10-28] MEDS: amLODIPine BESYLATE 5 MG TAB PO SCH (09:33)
[2022-10-28] MEDS: GABAPENTIN 300 MG CAP PO SCH ×2 (09:42→20:06)
[2022-10-28] MEDS: CYANOCOBALAMIN 1000 MCG/ML VIAL IM SCH (09:42)
[2022-10-28] MEDS: CALCITRIOL 0.25 MCG CAPSULE PO SCH (09:43)
[2022-10-28] MEDS: MIRABEGRON ER 25 MG TAB PO SCH (09:43)
[2022-10-28] MEDS: PANTOprazole 40 MG TAB PO SCH (09:43)
[2022-10-28] MEDS: ACETAMINOPHEN 500 MG TAB PO SCH ×3 (09:43→20:06)
[2022-10-28] MEDS: FOLIC ACID 1 MG TAB PO SCH (09:44)
[2022-10-28] MEDS: SERTRALINE HCL 50 MG TABLET PO SCH (09:44)
[2022-10-28] MEDS: SODIUM BICARBONATE 650 MG TAB PO SCH (09:44)
[2022-10-28] MEDS: LANTUS PER UNIT CHARGE SQ SCH ×2 (09:45→20:18)
[2022-10-28] MEDS: INSULIN ASPART PER UNIT CHARGE SC SCH ×4 (09:45→20:15)
[2022-10-28] MEDS: IRON SUCROSE 300 MG in SODIUM CHLORIDE 0.9% 250 ML IV SCH (09:47)
[2022-10-28] MEDS: FAMOTIDINE 20 MG TAB PO SCH (10:20)
--- NOTE | 2022-10-28 14:06 | Orthopedic Progress Note ---
Date of Service October 28, 2022 Assessment & Plan (1) Effusion of left knee joint: Plan: Status post an aspiration of her left knee. The effusion is resolved. Crystal analysis is negative. No evidence of septic joint. She may do gentle range of motion as tolerated. She can use the Ric bandage for comfort. Apply ice as needed for swelling in her left knee. Please call with any further questions or concerns regarding the left knee. Appreciate podiatry consult. Patient apparently refused podiatry care. Wound care nurse also saw and did some light debridement on both feet as well as wound cleaning of the right ortiz. No dermatology consult has been performed. Admission and Anticipated Discharge Date Admission Date: October 27, 2022 Subjective Patient seen and evaluated today by myself and Dr. Don. She states that she was seen by bolting machine operator and also some nurse that debrided her ortiz lesion. She states that someone cleaned it out and put a Band-Aid on it. Her knee feels better. She states it still painful to move but it is less swollen. She has had the Ric bandage on since yesterday. She also has an ice pack on her knee in place. Physical Exam Musculoskeletal: Left knee skin is healthy. No effusion to the left knee. Mild edema into the upper calf area at the base of the Ric bandage. The Ric bandage was removed today. She can gently actively flex her knee to about 20 degrees. Her feet were also evaluated. Tender to the touch. Pulses not palpable. Results & Data Vital Signs (Past 12 Hours) Vital Signs Temp Pulse Resp BP BP Pulse Ox O2 Del Method 10/28/22 11:48 36.6 C 73 18 113/65 95 Room Air 10/28/22 10:09 36.4 C L 87 18 109/51 L 97 Room Air 10/28/22 07:36 36.5 C 67 16 105/57 L 97 Room Air Laboratory Results 10/28/22 10/28/22 10/28/22 Range/Units 11:49 07:56 06:33 WBC (4.8-10.8) K/ul RBC (4.20-5.40) M/uL Hgb (12.0-16.0) g/dl Hct (37.0-47.0) % MCV (80.0-100.0) fL MCH (25.0-34.0) pg MCHC (32.0-36.0) g/dL RDW Std Deviation (36.4-46.3) fL RDW Coeff of Michael (11.5-14.5) % Plt Count (130-400) K/uL MPV (9.4-12.4) fL Sodium 133 L (136-145) mmol/L Potassium 4.1 (3.5-5.1) mmol/L Chloride 110 H (98-107) mmol/L Carbon Dioxide 17 L (21-32) mmol/L Anion Gap 6 (3-11) BUN 28 H (6-23) mg/dl Creatinine 1.97 H (0.6-1.2) mg/dl Est Cr Clr Drug Dosing 19.8 ml/min Est GFR ( Amer) 27.7 ml/min Est GFR (Non-Af Amer) 23.9 ml/min BUN/Creatinine Ratio 14.2 (10-20) Glucose 105 H (70-99(Fasting)) mg/dl POC Glucose 106 H 100 H (70-99) mg/dl Calcium 8.5 L (8.6-10.3) mg/dl Synovial Crystals 10/28/22 10/27/22 10/27/22 Range/Units 06:33 Unknown 21:09 WBC 6.42 (4.8-10.8) K/ul RBC 3.57 L (4.20-5.40) M/uL Hgb 9.3 L (12.0-16.0) g/dl Hct 30.6 L (37.0-47.0) % MCV 85.7 (80.0-100.0) fL MCH 26.1 (25.0-34.0) pg MCHC 30.4 L (32.0-36.0) g/dL RDW Std Deviation 52.3 H (36.4-46.3) fL RDW Coeff of Michael 16.9 H (11.5-14.5) % Plt Count 268 (130-400) K/uL MPV 10.6 (9.4-12.4) fL Sodium (136-145) mmol/L Potassium (3.5-5.1) mmol/L Chloride (98-107) mmol/L Carbon Dioxide (21-32) mmol/L Anion Gap (3-11) BUN (6-23) mg/dl Creatinine (0.6-1.2) mg/dl Est Cr Clr Drug Dosing ml/min Est GFR ( Amer) ml/min Est GFR (Non-Af Amer) ml/min BUN/Creatinine Ratio (10-20) Glucose (70-99(Fasting)) mg/dl POC Glucose 181 H (70-99) mg/dl Calcium (8.6-10.3) mg/dl Synovial Crystals 10/27/22 Range/Units 17:08 WBC (4.8-10.8) K/ul RBC (4.20-5.40) M/uL Hgb (12.0-16.0) g/dl Hct (37.0-47.0) % MCV (80.0-100.0) fL MCH (25.0-34.0) pg MCHC (32.0-36.0) g/dL RDW Std Deviation (36.4-46.3) fL RDW Coeff of Michael (11.5-14.5) % Plt Count (130-400) K/uL MPV (9.4-12.4) fL Sodium (136-145) mmol/L Potassium (3.5-5.1) mmol/L Chloride (98-107) mmol/L Carbon Dioxide (21-32) mmol/L Anion Gap (3-11) BUN (6-23) mg/dl Creatinine (0.6-1.2) mg/dl Est Cr Clr Drug Dosing ml/min Est GFR ( Amer) ml/min Est GFR (Non-Af Amer) ml/min BUN/Creatinine Ratio (10-20) Glucose (70-99(Fasting)) mg/dl POC Glucose 111 H (70-99) mg/dl Calcium (8.6-10.3) mg/dl Synovial Crystals negative
[2022-10-29 08:10] LABS: Hematocrit (blood only) 32.3 % (37.0-47.0); Hemoglobin 9.8 g/dl (12.0-16.0); Mean Corpuscular Hemoglobin 26.1 pg (25.0-34.0); Mean Corpuscular Hgb Conc 30.3 g/dL (32.0-36.0); Mean Corpuscular Volume 85.9 fL (80.0-100.0); Mean Platelet Volume 10.3 fL (9.4-12.4); Platelet Count 297 K/uL (130-400); RDW Coefficient of Variation 17.2 % (11.5-14.5); RDW Standard Deviation 53.3 fL (36.4-46.3); Red Blood Count 3.76 M/uL (4.20-5.40); White Blood Count 6.04 K/ul (4.8-10.8)
[2022-10-29] MEDS: amLODIPine BESYLATE 5 MG TAB PO SCH (09:01)
[2022-10-29] MEDS: ACETAMINOPHEN 500 MG TAB PO SCH ×3 (09:01→21:06)
[2022-10-29] MEDS: CALCITRIOL 0.25 MCG CAPSULE PO SCH (09:04)
[2022-10-29] MEDS: CYANOCOBALAMIN 1000 MCG/ML VIAL IM SCH (09:05)
[2022-10-29] MEDS: GABAPENTIN 300 MG CAP PO SCH ×2 (09:05→21:07)
[2022-10-29] MEDS: FOLIC ACID 1 MG TAB PO SCH (09:05)
[2022-10-29] MEDS: PANTOprazole 40 MG TAB PO SCH (09:06)
[2022-10-29] MEDS: SERTRALINE HCL 50 MG TABLET PO SCH (09:06)
[2022-10-29] MEDS: MIRABEGRON ER 25 MG TAB PO SCH (09:06)
[2022-10-29] MEDS: SODIUM BICARBONATE 650 MG TAB PO SCH (09:08)
[2022-10-29 09:20] LABS: Calcium 8.7 mg/dl (8.6-10.3); Creatinine Clr Calc Pharmacy 14.8 ml/min; Est GFR (African American) 19.6 ml/min; Est GFR (Non-African American) 16.9 ml/min; Potassium 4.5 mmol/L (3.5-5.1)
[2022-10-29] MEDS: INSULIN ASPART PER UNIT CHARGE SC SCH ×4 (09:46→21:05)
[2022-10-29] MEDS: LANTUS PER UNIT CHARGE SQ SCH ×2 (09:48→21:05)
[2022-10-29] MEDS ORDERED: bisacodyL 5 MG TABEC PO ONE (10:11)
[2022-10-29] MEDS: FAMOTIDINE 20 MG TAB PO SCH (10:36)
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
[2022-10-29] MEDS: APIXABAN 2.5 MG TAB PO SCH (21:18)
[2022-10-30 07:46] LABS: Hematocrit (blood only) 29.3 % (37.0-47.0); Hemoglobin 9.1 g/dl (12.0-16.0); Mean Corpuscular Hemoglobin 26.7 pg (25.0-34.0); Mean Corpuscular Hgb Conc 31.1 g/dL (32.0-36.0); Mean Corpuscular Volume 85.9 fL (80.0-100.0); Mean Platelet Volume 10.5 fL (9.4-12.4); Platelet Count 290 K/uL (130-400); RDW Coefficient of Variation 17.5 % (11.5-14.5); RDW Standard Deviation 54.6 fL (36.4-46.3); Red Blood Count 3.41 M/uL (4.20-5.40); White Blood Count 4.52 K/ul (4.8-10.8)
[2022-10-30 08:04] LABS: BUN Creatinine Ratio 15.6 (10-20); Calcium 8.9 mg/dl (8.6-10.3); Creatinine Clr Calc Pharmacy 17.9 ml/min; Est GFR (African American) 24.5 ml/min; Est GFR (Non-African American) 21.2 ml/min; Potassium 4.2 mmol/L (3.5-5.1)
[2022-10-30] MEDS: FOLIC ACID 1 MG TAB PO SCH (08:17)
[2022-10-30] MEDS: MIRABEGRON ER 25 MG TAB PO SCH (08:17)
[2022-10-30] MEDS: CYANOCOBALAMIN 1000 MCG/ML VIAL IM SCH (08:17)
[2022-10-30] MEDS: CALCITRIOL 0.25 MCG CAPSULE PO SCH (08:17)
[2022-10-30] MEDS: FAMOTIDINE 20 MG TAB PO SCH (08:17)
[2022-10-30] MEDS: SODIUM BICARBONATE 650 MG TAB PO SCH (08:17)
[2022-10-30] MEDS: ACETAMINOPHEN 500 MG TAB PO SCH ×3 (08:18→20:39)
[2022-10-30] MEDS: amLODIPine BESYLATE 5 MG TAB PO SCH (08:18)
[2022-10-30] MEDS: PANTOprazole 40 MG TAB PO SCH (08:18)
[2022-10-30] MEDS: SERTRALINE HCL 50 MG TABLET PO SCH (08:18)
[2022-10-30] MEDS: APIXABAN 2.5 MG TAB PO SCH ×2 (08:18→20:39)
[2022-10-30] MEDS: GABAPENTIN 300 MG CAP PO SCH ×2 (08:18→20:39)
[2022-10-30] MEDS: INSULIN ASPART PER UNIT CHARGE SC SCH ×4 (09:41→20:29)
[2022-10-30] MEDS: LANTUS PER UNIT CHARGE SQ SCH ×2 (09:42→20:40)
[2022-10-30] MEDS ORDERED: POLYETHYLENE (MIRALAX) 17 GM PACK PO PRN (16:25)
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
[2022-10-31] MEDS: oxyCODONE HCL IR 5 MG TAB (IMMEDIATE RELEASE) PO PRN ×2 (04:20→20:36)
[2022-10-31] MEDS: SERTRALINE HCL 50 MG TABLET PO SCH (08:02)
[2022-10-31] MEDS: PANTOprazole 40 MG TAB PO SCH (08:02)
[2022-10-31] MEDS: SODIUM BICARBONATE 650 MG TAB PO SCH (08:02)
[2022-10-31] MEDS: ACETAMINOPHEN 500 MG TAB PO SCH ×3 (08:02→20:31)
[2022-10-31] MEDS: FAMOTIDINE 20 MG TAB PO SCH (08:02)
[2022-10-31] MEDS: amLODIPine BESYLATE 5 MG TAB PO SCH (08:03)
[2022-10-31] MEDS: GABAPENTIN 300 MG CAP PO SCH ×2 (08:03→20:42)
[2022-10-31] MEDS: MIRABEGRON ER 25 MG TAB PO SCH (08:03)
[2022-10-31] MEDS: CALCITRIOL 0.25 MCG CAPSULE PO SCH (08:03)
[2022-10-31] MEDS: FOLIC ACID 1 MG TAB PO SCH (08:03)
[2022-10-31] MEDS: CYANOCOBALAMIN 1000 MCG/ML VIAL IM SCH (08:03)
[2022-10-31] MEDS: APIXABAN 2.5 MG TAB PO SCH ×2 (08:03→20:37)
[2022-10-31] MEDS: INSULIN ASPART PER UNIT CHARGE SC SCH ×4 (08:46→20:38)
[2022-10-31] MEDS: LANTUS PER UNIT CHARGE SQ SCH ×2 (08:47→20:42)
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
[2022-11-01] MEDS: oxyCODONE HCL IR 5 MG TAB (IMMEDIATE RELEASE) PO PRN (05:23)
[2022-11-01 07:01] LABS: Hematocrit (blood only) 29.3 % (37.0-47.0); Hemoglobin 9.3 g/dl (12.0-16.0); Mean Corpuscular Hemoglobin 27.1 pg (25.0-34.0); Mean Corpuscular Hgb Conc 31.7 g/dL (32.0-36.0); Mean Corpuscular Volume 85.4 fL (80.0-100.0); Mean Platelet Volume 10.2 fL (9.4-12.4); Platelet Count 318 K/uL (130-400); RDW Standard Deviation 54.7 fL (36.4-46.3); Red Blood Count 3.43 M/uL (4.20-5.40); White Blood Count 5.38 K/ul (4.8-10.8)
[2022-11-01 07:26] LABS: BUN Creatinine Ratio 21.9 (10-20); Calcium 9.1 mg/dl (8.6-10.3); Creatinine Clr Calc Pharmacy 20.8 ml/min; Est GFR (African American) 29.5 ml/min; Est GFR (Non-African American) 25.5 ml/min; Potassium 4.7 mmol/L (3.5-5.1)
[2022-11-01] MEDS: INSULIN ASPART PER UNIT CHARGE SC SCH ×4 (08:43→20:47)
[2022-11-01] MEDS: SODIUM BICARBONATE 650 MG TAB PO SCH (08:44)
[2022-11-01] MEDS: ERGOCALCIFEROL 50,000 UNITS 1250 MCG CAP PO SCH (08:44)
[2022-11-01] MEDS: ACETAMINOPHEN 500 MG TAB PO SCH ×3 (08:44→20:26)
[2022-11-01] MEDS: amLODIPine BESYLATE 5 MG TAB PO SCH (08:44)
[2022-11-01] MEDS: GABAPENTIN 300 MG CAP PO SCH ×2 (08:44→20:26)
[2022-11-01] MEDS: FAMOTIDINE 20 MG TAB PO SCH (08:44)
[2022-11-01] MEDS: FOLIC ACID 1 MG TAB PO SCH (08:45)
[2022-11-01] MEDS: APIXABAN 2.5 MG TAB PO SCH ×2 (08:45→20:26)
[2022-11-01] MEDS: PANTOprazole 40 MG TAB PO SCH (08:45)
[2022-11-01] MEDS: CALCITRIOL 0.25 MCG CAPSULE PO SCH (08:45)
[2022-11-01] MEDS: CYANOCOBALAMIN 1000 MCG/ML VIAL IM SCH (08:46)
[2022-11-01] MEDS: SERTRALINE HCL 50 MG TABLET PO SCH (08:46)
[2022-11-01] MEDS: LANTUS PER UNIT CHARGE SQ SCH ×2 (08:48→20:50)
[2022-11-01] MEDS: MIRABEGRON ER 25 MG TAB PO SCH (09:05)
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
[2022-11-02] MEDS: ACETAMINOPHEN 500 MG TAB PO SCH ×3 (09:03→20:07)
[2022-11-02] MEDS: INSULIN ASPART PER UNIT CHARGE SC SCH ×4 (09:03→21:14)
[2022-11-02] MEDS: SODIUM BICARBONATE 650 MG TAB PO SCH (09:04)
[2022-11-02] MEDS: FAMOTIDINE 20 MG TAB PO SCH (09:04)
[2022-11-02] MEDS: GABAPENTIN 300 MG CAP PO SCH ×2 (09:04→20:07)
[2022-11-02] MEDS: amLODIPine BESYLATE 5 MG TAB PO SCH (09:05)
[2022-11-02] MEDS: FOLIC ACID 1 MG TAB PO SCH (09:05)
[2022-11-02] MEDS: PANTOprazole 40 MG TAB PO SCH (09:05)
[2022-11-02] MEDS: APIXABAN 2.5 MG TAB PO SCH ×2 (09:05→20:07)
[2022-11-02] MEDS: MIRABEGRON ER 25 MG TAB PO SCH (09:06)
[2022-11-02] MEDS: SERTRALINE HCL 50 MG TABLET PO SCH (09:06)
[2022-11-02] MEDS: CYANOCOBALAMIN 1000 MCG/ML VIAL IM SCH (09:08)
[2022-11-02] MEDS: LANTUS PER UNIT CHARGE SQ SCH ×2 (09:26→21:14)
[2022-11-02] MEDS: CALCITRIOL 0.25 MCG CAPSULE PO SCH (09:48)
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
--- NOTE | 2022-11-02 14:41 | XRay Report ---
XR chest 1V portable CLINICAL HISTORY: productive cough TECHNIQUE: Single frontal radiograph of the chest was obtained. Comparison: Comparison is made to chest radiograph 10/23/2022 FINDINGS: No lines and tubes are seen. Cardiomegaly is noted. The aortic arch is calcified. The lungs are clear . No evidence of pleural effusion or pneumothorax. IMPRESSION: No acute abnormalities and in particular no radiographic evidence of pneumonia. ACT 112: Negative or not required by law. Electronically signed by: Tristin Heller M.D. 11/02/2022 2:40 PM
[2022-11-03 07:00] LABS: Basophils # (auto) 0.04 K/uL (0-0.2); Basophils % (auto) 0.9 %; Eosinophils # (auto) 0.12 K/uL (0-0.50); Eosinophils % (auto) 2.6 %; Hematocrit (blood only) 32.8 % (37.0-47.0); Hemoglobin 10.1 g/dl (12.0-16.0); Immature Granulocytes # (auto) 0.03 K/uL (0.01-0.20); Immature Granulocytes % (auto) 0.7 %; Lymphocytes # (auto) 0.53 K/uL (1.2-3.4); Lymphocytes % (auto) 11.6 %; Mean Corpuscular Hemoglobin 26.5 pg (25.0-34.0); Mean Corpuscular Hgb Conc 30.8 g/dL (32.0-36.0); Mean Corpuscular Volume 86.1 fL (80.0-100.0); Monocytes # (auto) 0.41 K/uL (0.11-0.59); Neutrophils # (auto) 3.44 K/uL (1.40-6.50); Neutrophils % (auto) 75.2 %; Platelet Count 298 K/uL (130-400); RDW Coefficient of Variation 18.1 % (11.5-14.5); RDW Standard Deviation 55.5 fL (36.4-46.3); Red Blood Count 3.81 M/uL (4.20-5.40); White Blood Count 4.57 K/ul (4.8-10.8)
[2022-11-03 07:08] LABS: BUN Creatinine Ratio 29.9 (10-20); Calcium 9.1 mg/dl (8.6-10.3); Creatinine Clr Calc Pharmacy 23.3 ml/min; Est GFR (African American) 33.9 ml/min; Est GFR (Non-African American) 29.2 ml/min; Magnesium 1.8 mg/dl (1.7-2.4); Potassium 4.9 mmol/L (3.5-5.1)
[2022-11-03] MEDS: ACETAMINOPHEN 500 MG TAB PO SCH ×3 (07:45→20:37)
[2022-11-03] MEDS: amLODIPine BESYLATE 5 MG TAB PO SCH (08:47)
[2022-11-03] MEDS: GABAPENTIN 300 MG CAP PO SCH ×2 (08:48→20:37)
[2022-11-03] MEDS: SERTRALINE HCL 50 MG TABLET PO SCH (08:48)
[2022-11-03] MEDS: PANTOprazole 40 MG TAB PO SCH (08:48)
[2022-11-03] MEDS: MIRABEGRON ER 25 MG TAB PO SCH (08:48)
[2022-11-03] MEDS: SODIUM BICARBONATE 650 MG TAB PO SCH (08:48)
[2022-11-03] MEDS: CALCITRIOL 0.25 MCG CAPSULE PO SCH (08:48)
[2022-11-03] MEDS: FAMOTIDINE 20 MG TAB PO SCH (08:48)
[2022-11-03] MEDS: FOLIC ACID 1 MG TAB PO SCH (08:48)
[2022-11-03] MEDS: APIXABAN 2.5 MG TAB PO SCH ×2 (08:48→20:37)
[2022-11-03] MEDS: INSULIN ASPART PER UNIT CHARGE SC SCH ×4 (08:52→21:16)
[2022-11-03] MEDS: LANTUS PER UNIT CHARGE SQ SCH ×2 (08:54→21:25)
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
--- NOTE | 2022-11-03 12:17 | Orthopedic Progress Note ---
Date of Service November 03, 2022 Assessment & Plan (1) Knee pain, left: Plan: No reaccumulation of fluid in left knee. Severe osteoarthritis. Ice/heat prn pain/swelling. Notify us of any effusion. Otherwise can follow up with Dr. Don as needed. Admission and Anticipated Discharge Date Admission Date: October 27, 2022 Subjective Patient resting in bed, asleep. nursing communicated that she is complaining of left knee pain. Went into room to evaluate knee, patient answered her phone talking to someone. No complaints to us today. Physical Exam Musculoskeletal: Left knee evaluated by Dr. Don while she was on the phone. No effusion, no erythema, elevated on pillow. nontender to palpation. no warmth. Results & Data Vital Signs (Past 12 Hours) Vital Signs Temp Pulse Resp BP Pulse Ox O2 Del Method 11/03/22 11:43 Room Air 11/03/22 07:23 36.6 C 80 16 158/78 H 96 Room Air
[2022-11-03] MEDS: DICLOFENAC SOD 1% GEL 100 GM TUBE EXT SCH ×3 (12:54→20:38)
[2022-11-04] MEDS: MIRABEGRON ER 25 MG TAB PO SCH (08:16)
[2022-11-04] MEDS: SERTRALINE HCL 50 MG TABLET PO SCH (08:16)
[2022-11-04] MEDS: amLODIPine BESYLATE 5 MG TAB PO SCH (08:16)
[2022-11-04] MEDS: APIXABAN 2.5 MG TAB PO SCH ×2 (08:17→21:42)
[2022-11-04] MEDS: FOLIC ACID 1 MG TAB PO SCH (08:17)
[2022-11-04] MEDS: SODIUM BICARBONATE 650 MG TAB PO SCH (08:17)
[2022-11-04] MEDS: GABAPENTIN 300 MG CAP PO SCH ×2 (08:17→21:41)
[2022-11-04] MEDS: ACETAMINOPHEN 500 MG TAB PO SCH ×3 (08:17→21:40)
[2022-11-04] MEDS: PANTOprazole 40 MG TAB PO SCH (08:17)
[2022-11-04] MEDS: CALCITRIOL 0.25 MCG CAPSULE PO SCH (08:17)
[2022-11-04] MEDS: FAMOTIDINE 20 MG TAB PO SCH (08:17)
[2022-11-04] MEDS: DICLOFENAC SOD 1% GEL 100 GM TUBE EXT SCH ×4 (08:18→21:41)
[2022-11-04] MEDS: INSULIN ASPART PER UNIT CHARGE SC SCH ×4 (08:46→21:43)
[2022-11-04] MEDS: LANTUS PER UNIT CHARGE SQ SCH ×2 (08:47→21:43)
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
[2022-11-05] MEDS: oxyCODONE HCL IR 5 MG TAB (IMMEDIATE RELEASE) PO PRN (07:47)
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
[2022-11-05] MEDS: ACETAMINOPHEN 500 MG TAB PO SCH ×3 (09:45→21:13)
[2022-11-05] MEDS: amLODIPine BESYLATE 5 MG TAB PO SCH (09:46)
[2022-11-05] MEDS: DICLOFENAC SOD 1% GEL 100 GM TUBE EXT SCH ×4 (09:49→21:13)
[2022-11-05] MEDS: APIXABAN 2.5 MG TAB PO SCH ×2 (09:49→21:12)
[2022-11-05] MEDS: CALCITRIOL 0.25 MCG CAPSULE PO SCH (09:49)
[2022-11-05] MEDS: GABAPENTIN 300 MG CAP PO SCH ×2 (09:50→21:13)
[2022-11-05] MEDS: FOLIC ACID 1 MG TAB PO SCH (09:50)
[2022-11-05] MEDS: FAMOTIDINE 20 MG TAB PO SCH (09:50)
[2022-11-05] MEDS: PANTOprazole 40 MG TAB PO SCH (09:51)
[2022-11-05] MEDS: SERTRALINE HCL 50 MG TABLET PO SCH (09:51)
[2022-11-05] MEDS: MIRABEGRON ER 25 MG TAB PO SCH (09:51)
[2022-11-05] MEDS: SODIUM BICARBONATE 650 MG TAB PO SCH (09:51)
[2022-11-05] MEDS: LANTUS PER UNIT CHARGE SQ SCH ×2 (10:28→21:26)
[2022-11-05] MEDS: INSULIN ASPART PER UNIT CHARGE SC SCH ×4 (10:28→21:26)
[2022-11-05 10:29] LABS: Calcium 8.9 mg/dl (8.6-10.3); Creatinine Clr Calc Pharmacy 22.3 ml/min; Est GFR (Non-African American) 27.6 ml/min; Magnesium 1.8 mg/dl (1.7-2.4); Potassium 4.8 mmol/L (3.5-5.1)
[2022-11-05] MEDS ORDERED: FUROSEMIDE 20 MG TAB PO ONE (11:23)
[2022-11-05] MEDS ORDERED: MAGNESIUM SULFATE / D5W 1 GM/100 ML BAG IV ONE (11:24)
[2022-11-06 06:25] LABS: Hemoglobin 9.6 g/dl (12.0-16.0); Mean Corpuscular Hemoglobin 26.6 pg (25.0-34.0); Mean Corpuscular Volume 85.9 fL (80.0-100.0); Mean Platelet Volume 10.2 fL (9.4-12.4); Platelet Count 259 K/uL (130-400); RDW Coefficient of Variation 18.2 % (11.5-14.5); RDW Standard Deviation 56.9 fL (36.4-46.3); Red Blood Count 3.61 M/uL (4.20-5.40); White Blood Count 3.98 K/ul (4.8-10.8)
[2022-11-06 06:40] LABS: Albumin Globulin Ratio 1.1 (0.9-2); Albumin Level 3.2 gm/dl (3.4-5.0); Bilirubin,Total 0.2 mg/dl (0.2-1.0); Calcium 8.8 mg/dl (8.6-10.3); Creatinine Clr Calc Pharmacy 23.6 ml/min; Est GFR (African American) 34.4 ml/min; Est GFR (Non-African American) 29.6 ml/min; Globulin 2.9 gm/dl (2.5-4.0); Potassium 4.6 mmol/L (3.5-5.1); Total Protein 6.1 gm/dl (6.0-8.3)
[2022-11-06] MEDS: amLODIPine BESYLATE 5 MG TAB PO SCH (08:19)
[2022-11-06] MEDS: PANTOprazole 40 MG TAB PO SCH (08:19)
[2022-11-06] MEDS: ACETAMINOPHEN 500 MG TAB PO SCH ×3 (08:19→20:48)
[2022-11-06] MEDS: GABAPENTIN 300 MG CAP PO SCH ×2 (08:19→20:48)
[2022-11-06] MEDS: SODIUM BICARBONATE 650 MG TAB PO SCH (08:20)
[2022-11-06] MEDS: APIXABAN 2.5 MG TAB PO SCH ×2 (08:20→20:49)
[2022-11-06] MEDS: FOLIC ACID 1 MG TAB PO SCH (08:21)
[2022-11-06] MEDS: SERTRALINE HCL 50 MG TABLET PO SCH (08:21)
[2022-11-06] MEDS: MAGNESIUM OXIDE 400 MG TAB PO SCH (08:21)
[2022-11-06] MEDS: FAMOTIDINE 20 MG TAB PO SCH (08:21)
[2022-11-06] MEDS: MIRABEGRON ER 25 MG TAB PO SCH (08:21)
[2022-11-06] MEDS: CALCITRIOL 0.25 MCG CAPSULE PO SCH (08:22)
[2022-11-06] MEDS: DICLOFENAC SOD 1% GEL 100 GM TUBE EXT SCH ×4 (08:23→20:50)
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
[2022-11-06] MEDS: INSULIN ASPART PER UNIT CHARGE SC SCH ×4 (09:09→20:58)
[2022-11-06] MEDS: LANTUS PER UNIT CHARGE SQ SCH ×2 (09:09→20:57)
[2022-11-06] MEDS: FUROSEMIDE 40 MG TAB PO SCH (12:18)
[2022-11-06] MEDS ORDERED: SIMETHICONE 80 MG CHEW PO STA (22:12)
[2022-11-07 07:44] LABS: Hematocrit (blood only) 31.2 % (37.0-47.0); Hemoglobin 9.7 g/dl (12.0-16.0); Mean Corpuscular Hemoglobin 26.8 pg (25.0-34.0); Mean Corpuscular Hgb Conc 31.1 g/dL (32.0-36.0); Mean Corpuscular Volume 86.2 fL (80.0-100.0); Mean Platelet Volume 10.1 fL (9.4-12.4); Platelet Count 230 K/uL (130-400); RDW Coefficient of Variation 18.3 % (11.5-14.5); RDW Standard Deviation 58.3 fL (36.4-46.3); Red Blood Count 3.62 M/uL (4.20-5.40); White Blood Count 3.02 K/ul (4.8-10.8)
[2022-11-07 08:03] LABS: Albumin Globulin Ratio 1.1 (0.9-2); Albumin Level 3.1 gm/dl (3.4-5.0); BUN Creatinine Ratio 42.4 (10-20); Bilirubin,Total 0.2 mg/dl (0.2-1.0); Calcium 8.9 mg/dl (8.6-10.3); Creatinine Clr Calc Pharmacy 23.6 ml/min; Est GFR (African American) 34.4 ml/min; Est GFR (Non-African American) 29.6 ml/min; Globulin 2.8 gm/dl (2.5-4.0); Potassium 4.5 mmol/L (3.5-5.1); Total Protein 5.9 gm/dl (6.0-8.3)
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
[2022-11-07] MEDS ORDERED: FUROSEMIDE 40 MG TAB PO SCH (09:00)
[2022-11-07] MEDS: FAMOTIDINE 20 MG TAB PO SCH (09:04)
[2022-11-07] MEDS: CALCITRIOL 0.25 MCG CAPSULE PO SCH (09:04)
[2022-11-07] MEDS: GABAPENTIN 300 MG CAP PO SCH ×2 (09:04→21:23)
[2022-11-07] MEDS: PANTOprazole 40 MG TAB PO SCH (09:04)
[2022-11-07] MEDS: MIRABEGRON ER 25 MG TAB PO SCH (09:04)
[2022-11-07] MEDS: APIXABAN 2.5 MG TAB PO SCH ×2 (09:04→21:23)
[2022-11-07] MEDS: MAGNESIUM OXIDE 400 MG TAB PO SCH (09:04)
[2022-11-07] MEDS: SODIUM BICARBONATE 650 MG TAB PO SCH (09:06)
[2022-11-07] MEDS: ACETAMINOPHEN 500 MG TAB PO SCH ×3 (09:06→21:23)
[2022-11-07] MEDS: amLODIPine BESYLATE 5 MG TAB PO SCH (09:06)
[2022-11-07] MEDS: DICLOFENAC SOD 1% GEL 100 GM TUBE EXT SCH ×4 (09:06→21:24)
[2022-11-07] MEDS: FOLIC ACID 1 MG TAB PO SCH (09:07)
[2022-11-07] MEDS: SERTRALINE HCL 50 MG TABLET PO SCH (09:07)
[2022-11-07] MEDS: LANTUS PER UNIT CHARGE SQ SCH ×2 (09:52→21:24)
[2022-11-07] MEDS: INSULIN ASPART PER UNIT CHARGE SC SCH ×4 (09:52→21:24)
[2022-11-08] MEDS ORDERED: FUROSEMIDE 40 MG TAB PO SCH (08:30)
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
[2022-11-08] MEDS: ACETAMINOPHEN 500 MG TAB PO SCH ×3 (09:01→21:17)
[2022-11-08] MEDS: APIXABAN 2.5 MG TAB PO SCH ×2 (09:01→21:18)
[2022-11-08] MEDS: amLODIPine BESYLATE 5 MG TAB PO SCH (09:01)
[2022-11-08] MEDS: FAMOTIDINE 20 MG TAB PO SCH (09:02)
[2022-11-08] MEDS: ERGOCALCIFEROL 50,000 UNITS 1250 MCG CAP PO SCH (09:02)
[2022-11-08] MEDS: GABAPENTIN 300 MG CAP PO SCH ×2 (09:02→21:18)
[2022-11-08] MEDS: CALCITRIOL 0.25 MCG CAPSULE PO SCH (09:02)
[2022-11-08] MEDS: DICLOFENAC SOD 1% GEL 100 GM TUBE EXT SCH ×4 (09:02→21:18)
[2022-11-08] MEDS: FOLIC ACID 1 MG TAB PO SCH (09:02)
[2022-11-08] MEDS: LANTUS PER UNIT CHARGE SQ SCH ×2 (09:03→21:22)
[2022-11-08] MEDS: MIRABEGRON ER 25 MG TAB PO SCH (09:03)
[2022-11-08] MEDS: SERTRALINE HCL 50 MG TABLET PO SCH (09:03)
[2022-11-08] MEDS: MAGNESIUM OXIDE 400 MG TAB PO SCH (09:03)
[2022-11-08] MEDS: PANTOprazole 40 MG TAB PO SCH (09:03)
[2022-11-08] MEDS: INSULIN ASPART PER UNIT CHARGE SC SCH ×4 (09:04→20:49)
[2022-11-08] MEDS: SODIUM BICARBONATE 650 MG TAB PO SCH (09:04)
[2022-11-08] MEDS: oxyCODONE HCL IR 5 MG TAB (IMMEDIATE RELEASE) PO PRN (12:07)
[2022-11-09 06:44] LABS: Hematocrit (blood only) 32.5 % (37.0-47.0); Mean Corpuscular Hemoglobin 26.9 pg (25.0-34.0); Mean Corpuscular Hgb Conc 30.8 g/dL (32.0-36.0); Mean Corpuscular Volume 87.4 fL (80.0-100.0); Mean Platelet Volume 10.3 fL (9.4-12.4); Platelet Count 261 K/uL (130-400); RDW Coefficient of Variation 18.4 % (11.5-14.5); Red Blood Count 3.72 M/uL (4.20-5.40); White Blood Count 4.38 K/ul (4.8-10.8)
[2022-11-09] MEDS: oxyCODONE HCL IR 5 MG TAB (IMMEDIATE RELEASE) PO PRN ×2 (07:17→20:03)
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
[2022-11-09] MEDS: APIXABAN 2.5 MG TAB PO SCH ×2 (08:42→20:02)
[2022-11-09] MEDS: GABAPENTIN 300 MG CAP PO SCH ×2 (08:42→20:03)
[2022-11-09] MEDS: ACETAMINOPHEN 500 MG TAB PO SCH ×3 (08:42→20:03)
[2022-11-09] MEDS: CYANOCOBALAMIN 1000 MCG/ML VIAL IM SCH (08:43)
[2022-11-09] MEDS: FOLIC ACID 1 MG TAB PO SCH (08:44)
[2022-11-09] MEDS: MIRABEGRON ER 25 MG TAB PO SCH (08:44)
[2022-11-09] MEDS: FAMOTIDINE 20 MG TAB PO SCH (08:44)
[2022-11-09] MEDS: PANTOprazole 40 MG TAB PO SCH (08:44)
[2022-11-09] MEDS: SERTRALINE HCL 50 MG TABLET PO SCH (08:45)
[2022-11-09] MEDS: SODIUM BICARBONATE 650 MG TAB PO SCH (08:45)
[2022-11-09] MEDS: MAGNESIUM OXIDE 400 MG TAB PO SCH (08:46)
[2022-11-09] MEDS: amLODIPine BESYLATE 5 MG TAB PO SCH (08:46)
[2022-11-09] MEDS: CALCITRIOL 0.25 MCG CAPSULE PO SCH (08:46)
[2022-11-09] MEDS: DICLOFENAC SOD 1% GEL 100 GM TUBE EXT SCH ×4 (08:47→20:05)
[2022-11-09 08:50] LABS: Albumin Level 3.3 gm/dl (3.4-5.0); Bilirubin,Total 0.2 mg/dl (0.2-1.0); Calcium 8.9 mg/dl (8.6-10.3); Magnesium 2.1 mg/dl (1.7-2.4); Potassium 4.6 mmol/L (3.5-5.1)
[2022-11-09 08:56] LABS: Albumin Globulin Ratio 1.2 (0.9-2); BUN Creatinine Ratio 42.7 (10-20); Creatinine Clr Calc Pharmacy 22.4 ml/min; Est GFR (African American) 32.7 ml/min; Est GFR (Non-African American) 28.2 ml/min; Globulin 2.7 gm/dl (2.5-4.0)
[2022-11-09] MEDS: INSULIN ASPART PER UNIT CHARGE SC SCH ×4 (08:59→20:09)
[2022-11-09] MEDS: LANTUS PER UNIT CHARGE SQ SCH ×2 (09:00→20:09)
[2022-11-09] MEDS ORDERED: FUROSEMIDE 40 MG TAB PO SCH (09:00)
[2022-11-10 06:39] LABS: Hematocrit (blood only) 30.6 % (37.0-47.0); Hemoglobin 9.4 g/dl (12.0-16.0); Mean Corpuscular Hemoglobin 26.6 pg (25.0-34.0); Mean Corpuscular Hgb Conc 30.7 g/dL (32.0-36.0); Mean Corpuscular Volume 86.4 fL (80.0-100.0); Mean Platelet Volume 10.6 fL (9.4-12.4); Platelet Count 243 K/uL (130-400); RDW Coefficient of Variation 18.3 % (11.5-14.5); RDW Standard Deviation 58.5 fL (36.4-46.3); Red Blood Count 3.54 M/uL (4.20-5.40); White Blood Count 4.92 K/ul (4.8-10.8)
[2022-11-10 06:59] LABS: BUN Creatinine Ratio 47.1 (10-20); Calcium 8.7 mg/dl (8.6-10.3); Creatinine Clr Calc Pharmacy 24.4 ml/min; Est GFR (African American) 36.2 ml/min; Est GFR (Non-African American) 31.3 ml/min; Potassium 4.5 mmol/L (3.5-5.1)
--- NOTE | 2022-11-10 08:48 | Ultrasound Report ---
ULTRASOUND RIGHT UPPER QUADRANT ABDOMEN CLINICAL HISTORY: Poor appetite. Elevated hepatic transaminases. COMPARISON STUDY: Abdominal CT dated 12/25/2019. TECHNIQUE: Real-time, grayscale, and color flow sonography of the right upper quadrant of the abdomen was performed. Images are reviewed in the transverse and longitudinal planes. FINDINGS: Liver: The liver is top normal in size and demonstrates heterogeneously increased echotexture indicat ing steatosis. There is no intrahepatic biliary ductal dilatation. The main portal vein is patent. Gallbladder: There are gallstones and biliary sludge. The gallbladder wall appears mildly thickened m easuring up to 4 mm. No pericholecystic fluid is seen. A sonographic Redding's sign is reportedly abse nt. The common bile duct measures up to 0.8 cm in diameter. Pancreas: Visualized portions of the pancreatic head and body are normal in appearance. The splenic v ein is patent. Right kidney: Survey images of the right kidney show cortical atrophy and increased echotexture indic ating medical renal disease. There is no hydronephrosis. Ascites: None. IMPRESSION: 1. Hepatic steatosis. 2. Gallstones and biliary sludge with mild gallbladder wall thickening. There is no definitive sonogr aphic evidence of acute cholecystitis at the time of examination and clinical correlation will be req uired. If there is clinical concern for cholecystitis a nuclear hepatobiliary scan should be obtained . 3. There is evidence of medical renal disease. ACT 112: Negative or not required by law. Electronically signed by: Piyush Fox M.D. 11/10/2022 8:47 AM
[2022-11-10] MEDS: INSULIN ASPART PER UNIT CHARGE SC SCH ×4 (09:04→20:59)
[2022-11-10] MEDS: amLODIPine BESYLATE 5 MG TAB PO SCH (09:05)
[2022-11-10] MEDS: APIXABAN 2.5 MG TAB PO SCH ×2 (09:05→20:59)
[2022-11-10] MEDS: GABAPENTIN 300 MG CAP PO SCH ×2 (09:05→20:59)
[2022-11-10] MEDS: MIRABEGRON ER 25 MG TAB PO SCH (09:05)
[2022-11-10] MEDS: ACETAMINOPHEN 500 MG TAB PO SCH ×3 (09:05→20:59)
[2022-11-10] MEDS: PANTOprazole 40 MG TAB PO SCH (09:06)
[2022-11-10] MEDS: CALCITRIOL 0.25 MCG CAPSULE PO SCH (09:06)
[2022-11-10] MEDS: FAMOTIDINE 20 MG TAB PO SCH (09:06)
[2022-11-10] MEDS: MAGNESIUM OXIDE 400 MG TAB PO SCH (09:06)
[2022-11-10] MEDS: SERTRALINE HCL 50 MG TABLET PO SCH (09:06)
[2022-11-10] MEDS: DICLOFENAC SOD 1% GEL 100 GM TUBE EXT SCH ×4 (09:07→20:59)
[2022-11-10] MEDS: SODIUM BICARBONATE 650 MG TAB PO SCH (09:07)
[2022-11-10] MEDS: FOLIC ACID 1 MG TAB PO SCH (09:07)
[2022-11-10] MEDS: LANTUS PER UNIT CHARGE SQ SCH ×2 (09:10→21:01)
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
[2022-11-10] MEDS ORDERED: guaiFENesin/DEXTROM SYRUP 200MG/20MG 10ML UDC PO STA (20:08)
[2022-11-11] MEDS: INSULIN ASPART PER UNIT CHARGE SC SCH ×4 (08:30→21:33)
[2022-11-11] MEDS: DICLOFENAC SOD 1% GEL 100 GM TUBE EXT SCH ×4 (08:31→20:35)
[2022-11-11] MEDS: FAMOTIDINE 20 MG TAB PO SCH (08:31)
[2022-11-11] MEDS: FOLIC ACID 1 MG TAB PO SCH (08:31)
[2022-11-11] MEDS: amLODIPine BESYLATE 5 MG TAB PO SCH (08:32)
[2022-11-11] MEDS: APIXABAN 2.5 MG TAB PO SCH ×2 (08:32→20:34)
[2022-11-11] MEDS: MIRABEGRON ER 25 MG TAB PO SCH (08:32)
[2022-11-11] MEDS: PANTOprazole 40 MG TAB PO SCH (08:32)
[2022-11-11] MEDS: ACETAMINOPHEN 500 MG TAB PO SCH ×3 (08:32→20:34)
[2022-11-11] MEDS: SODIUM BICARBONATE 650 MG TAB PO SCH (08:32)
[2022-11-11] MEDS: GABAPENTIN 300 MG CAP PO SCH ×2 (08:32→20:34)
[2022-11-11] MEDS: CALCITRIOL 0.25 MCG CAPSULE PO SCH (08:33)
[2022-11-11] MEDS: SERTRALINE HCL 50 MG TABLET PO SCH (08:33)
[2022-11-11] MEDS: MAGNESIUM OXIDE 400 MG TAB PO SCH (08:33)
[2022-11-11] MEDS: LANTUS PER UNIT CHARGE SQ SCH ×2 (08:33→21:32)
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
[2022-11-12 08:18] LABS: Hematocrit (blood only) 31.5 % (37.0-47.0); Hemoglobin 9.5 g/dl (12.0-16.0); Mean Corpuscular Hemoglobin 26.7 pg (25.0-34.0); Mean Corpuscular Hgb Conc 30.2 g/dL (32.0-36.0); Mean Corpuscular Volume 88.5 fL (80.0-100.0); Mean Platelet Volume 10.9 fL (9.4-12.4); Platelet Count 268 K/uL (130-400); RDW Coefficient of Variation 18.7 % (11.5-14.5); RDW Standard Deviation 61.1 fL (36.4-46.3); Red Blood Count 3.56 M/uL (4.20-5.40); White Blood Count 5.62 K/ul (4.8-10.8)
[2022-11-12 08:44] LABS: BUN Creatinine Ratio 45.1 (10-20); Calcium 8.9 mg/dl (8.6-10.3); Creatinine Clr Calc Pharmacy 21.9 ml/min; Est GFR (African American) 31.8 ml/min; Est GFR (Non-African American) 27.4 ml/min; Magnesium 2.1 mg/dl (1.7-2.4)
[2022-11-12] MEDS: ACETAMINOPHEN 500 MG TAB PO SCH ×3 (10:06→20:58)
[2022-11-12] MEDS: amLODIPine BESYLATE 5 MG TAB PO SCH (10:07)
[2022-11-12] MEDS: APIXABAN 2.5 MG TAB PO SCH ×2 (10:09→20:58)
[2022-11-12] MEDS: CALCITRIOL 0.25 MCG CAPSULE PO SCH (10:09)
[2022-11-12] MEDS: DICLOFENAC SOD 1% GEL 100 GM TUBE EXT SCH ×4 (10:10→20:58)
[2022-11-12] MEDS: FAMOTIDINE 20 MG TAB PO SCH (10:10)
[2022-11-12] MEDS: MAGNESIUM OXIDE 400 MG TAB PO SCH (10:11)
[2022-11-12] MEDS: GABAPENTIN 300 MG CAP PO SCH ×2 (10:11→20:58)
[2022-11-12] MEDS: FOLIC ACID 1 MG TAB PO SCH (10:11)
[2022-11-12] MEDS: MIRABEGRON ER 25 MG TAB PO SCH (10:12)
[2022-11-12] MEDS: PANTOprazole 40 MG TAB PO SCH (10:12)
[2022-11-12] MEDS: SERTRALINE HCL 50 MG TABLET PO SCH (10:14)
[2022-11-12] MEDS: SODIUM BICARBONATE 650 MG TAB PO SCH (10:14)
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
[2022-11-12] MEDS: INSULIN ASPART PER UNIT CHARGE SC SCH ×4 (10:40→20:54)
[2022-11-12] MEDS: LANTUS PER UNIT CHARGE SQ SCH ×2 (10:42→20:54)
[2022-11-12] MEDS: oxyCODONE HCL IR 5 MG TAB (IMMEDIATE RELEASE) PO PRN (21:55)
[2022-11-13 09:16] LABS: Hematocrit (blood only) 30.7 % (37.0-47.0); Hemoglobin 9.4 g/dl (12.0-16.0); Mean Corpuscular Hemoglobin 26.6 pg (25.0-34.0); Mean Corpuscular Hgb Conc 30.6 g/dL (32.0-36.0); Mean Platelet Volume 10.7 fL (9.4-12.4); Platelet Count 283 K/uL (130-400); RDW Coefficient of Variation 18.6 % (11.5-14.5); RDW Standard Deviation 59.2 fL (36.4-46.3); Red Blood Count 3.53 M/uL (4.20-5.40); White Blood Count 4.67 K/ul (4.8-10.8)
[2022-11-13] MEDS: INSULIN ASPART PER UNIT CHARGE SC SCH ×4 (09:24→20:27)
[2022-11-13] MEDS: LANTUS PER UNIT CHARGE SQ SCH ×2 (09:26→20:28)
[2022-11-13 09:31] LABS: BUN Creatinine Ratio 44.3 (10-20); Calcium 9.1 mg/dl (8.6-10.3); Est GFR (Non-African American) 27.6 ml/min; Potassium 4.6 mmol/L (3.5-5.1)
[2022-11-13] MEDS: ACETAMINOPHEN 500 MG TAB PO SCH ×3 (09:32→20:13)
[2022-11-13] MEDS: amLODIPine BESYLATE 5 MG TAB PO SCH (09:33)
[2022-11-13] MEDS: APIXABAN 2.5 MG TAB PO SCH ×2 (09:34→20:14)
[2022-11-13] MEDS: CALCITRIOL 0.25 MCG CAPSULE PO SCH (09:35)
[2022-11-13] MEDS: FAMOTIDINE 20 MG TAB PO SCH (09:35)
[2022-11-13] MEDS: GABAPENTIN 300 MG CAP PO SCH ×2 (09:36→20:14)
[2022-11-13] MEDS: FOLIC ACID 1 MG TAB PO SCH (09:36)
[2022-11-13] MEDS: MAGNESIUM OXIDE 400 MG TAB PO SCH (09:36)
[2022-11-13] MEDS: MIRABEGRON ER 25 MG TAB PO SCH (09:37)
[2022-11-13] MEDS: SERTRALINE HCL 50 MG TABLET PO SCH (09:38)
[2022-11-13] MEDS: PANTOprazole 40 MG TAB PO SCH (09:38)
[2022-11-13] MEDS: SODIUM BICARBONATE 650 MG TAB PO SCH (09:39)
--- NOTE | 2022-11-13 09:57 | Orthopedic Progress Note ---
Date of Service November 13, 2022 Assessment & Plan (1) Knee pain, left: Plan: The patient was educated regarding today's findings. She was reassured that there is no effusion in her left knee. She does have known osteoarthritis and this is likely contributing to her pain. There is nothing to aspirate today. The patient was able to feed herself breakfast while I was in the room. I did discuss with her sitting in a bedside chair. She states she has not done that during her time here. I will discuss this with Dr. Don and see whether this can be added. We will sign off at this time unless her orthopedic condition changes. She may follow in the office as needed. Admission and Anticipated Discharge Date Admission Date: October 27, 2022 Subjective This 77-year-old female is seen today in her room. She remains in bed. She states that her left knee continues to cause some pain. She is wondering if it is swollen. She has no complaints otherwise. Denies any chest pain, shortness of breath, nausea, vomiting, or abdominal pain. She is waiting for a bed at [facility]. Physical Exam Physical Exam: General: Frail, elderly female, in no acute distress. Laying in bed. Alert and oriented. Conversive. Skin: Warm and dry with fair turgor. No rashes. She has extensive calluses present on her feet. There is no intra-articular effusion in the left knee. No significant peripheral edema. Musculoskeletal: The patient has mild discomfort with passive flexion and extension of her knee. She denies any hip pain with passive motion. No assessment done on the right leg today. Neurologic: Gross sensation is intact across the left leg by soft touch. Peripheral pulses are 1+. Results & Data Vital Signs (Past 12 Hours) Vital Signs Temp Pulse Resp BP BP Pulse Ox O2 Del Method 11/13/22 07:51 36.5 C 69 17 117/55 L 95 Room Air 11/12/22 23:19 Room Air 11/12/22 22:00 36.6 C 80 18 116/52 L 96 Room Air Laboratory Results CBC obtained today shows a white count of 4.6. H&H of 9.4 and 30.7. Platelets 283,000. Sodium 130 potassium 4.6. Chloride 101. BUN of 77 and creatinine 1.74. These are consistent with yesterday's values. Glucose of 88.
[2022-11-13] MEDS: DICLOFENAC SOD 1% GEL 100 GM TUBE EXT SCH ×4 (10:07→20:12)
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
[2022-11-13] MEDS: oxyCODONE HCL IR 5 MG TAB (IMMEDIATE RELEASE) PO PRN ×2 (19:53→23:26)
[2022-11-14] MEDS: ACETAMINOPHEN 500 MG TAB PO SCH ×3 (09:11→20:13)
[2022-11-14] MEDS: APIXABAN 2.5 MG TAB PO SCH ×2 (09:12→20:14)
[2022-11-14] MEDS: CALCITRIOL 0.25 MCG CAPSULE PO SCH (09:13)
[2022-11-14] MEDS: FAMOTIDINE 20 MG TAB PO SCH (09:14)
[2022-11-14] MEDS: FOLIC ACID 1 MG TAB PO SCH (09:14)
[2022-11-14] MEDS: MAGNESIUM OXIDE 400 MG TAB PO SCH (09:15)
[2022-11-14] MEDS: GABAPENTIN 300 MG CAP PO SCH ×2 (09:15→20:13)
[2022-11-14] MEDS: MIRABEGRON ER 25 MG TAB PO SCH (09:15)
[2022-11-14] MEDS: amLODIPine BESYLATE 5 MG TAB PO SCH (09:16)
[2022-11-14] MEDS: SERTRALINE HCL 50 MG TABLET PO SCH (09:17)
[2022-11-14] MEDS: PANTOprazole 40 MG TAB PO SCH (09:17)
[2022-11-14] MEDS: SODIUM BICARBONATE 650 MG TAB PO SCH (09:18)
[2022-11-14] MEDS: oxyCODONE HCL IR 5 MG TAB (IMMEDIATE RELEASE) PO PRN ×2 (09:26→18:23)
[2022-11-14] MEDS: LANTUS PER UNIT CHARGE SQ SCH ×2 (09:27→20:24)
[2022-11-14] MEDS: INSULIN ASPART PER UNIT CHARGE SC SCH ×4 (09:28→20:24)
[2022-11-14] MEDS: DICLOFENAC SOD 1% GEL 100 GM TUBE EXT SCH ×4 (09:31→20:12)
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
[2022-11-15 07:29] LABS: Hematocrit (blood only) 29.4 % (37.0-47.0); Mean Corpuscular Hemoglobin 26.9 pg (25.0-34.0); Mean Corpuscular Hgb Conc 30.6 g/dL (32.0-36.0); Mean Platelet Volume 10.7 fL (9.4-12.4); Platelet Count 310 K/uL (130-400); RDW Coefficient of Variation 18.2 % (11.5-14.5); RDW Standard Deviation 58.4 fL (36.4-46.3); Red Blood Count 3.34 M/uL (4.20-5.40); White Blood Count 4.41 K/ul (4.8-10.8)
[2022-11-15 07:44] LABS: BUN Creatinine Ratio 43.1 (10-20); Calcium 8.9 mg/dl (8.6-10.3); Creatinine Clr Calc Pharmacy 20.4 ml/min; Est GFR (African American) 29.1 ml/min; Est GFR (Non-African American) 25.1 ml/min; Potassium 4.8 mmol/L (3.5-5.1)
[2022-11-15] MEDS: DICLOFENAC SOD 1% GEL 100 GM TUBE EXT SCH ×4 (08:04→20:48)
[2022-11-15] MEDS: ACETAMINOPHEN 500 MG TAB PO SCH ×3 (08:04→20:48)
[2022-11-15] MEDS: CALCITRIOL 0.25 MCG CAPSULE PO SCH (09:13)
[2022-11-15] MEDS: SERTRALINE HCL 50 MG TABLET PO SCH (09:13)
[2022-11-15] MEDS: ERGOCALCIFEROL 50,000 UNITS 1250 MCG CAP PO SCH (09:13)
[2022-11-15] MEDS: APIXABAN 2.5 MG TAB PO SCH ×2 (09:13→20:48)
[2022-11-15] MEDS: MIRABEGRON ER 25 MG TAB PO SCH (09:13)
[2022-11-15] MEDS: MAGNESIUM OXIDE 400 MG TAB PO SCH (09:14)
[2022-11-15] MEDS: PANTOprazole 40 MG TAB PO SCH (09:14)
[2022-11-15] MEDS: GABAPENTIN 300 MG CAP PO SCH ×2 (09:14→20:49)
[2022-11-15] MEDS: SODIUM BICARBONATE 650 MG TAB PO SCH (09:14)
[2022-11-15] MEDS: FOLIC ACID 1 MG TAB PO SCH (09:14)
[2022-11-15] MEDS: amLODIPine BESYLATE 5 MG TAB PO SCH (09:14)
[2022-11-15] MEDS: FAMOTIDINE 20 MG TAB PO SCH (09:17)
[2022-11-15] MEDS: LANTUS PER UNIT CHARGE SQ SCH ×2 (09:34→20:47)
[2022-11-15] MEDS: INSULIN ASPART PER UNIT CHARGE SC SCH ×4 (09:34→20:47)
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
--- NOTE | 2022-11-15 14:40 | XRay Report ---
TWO VIEW CHEST CLINICAL HISTORY: Cough. FINDINGS: AP and lateral chest radiographs are compared to study date correlation is made with chest CT dated 07/09/2017.. The AP views are significantly degraded by patient rotation. The heart is enlarged. There is prominence of the pulmonary vasculature. A coronary artery stent is in place. Lef t basilar opacities are unchanged and likely represent scarring/atelectasis. Atelectasis is also seen at the right lung base. No large pleural effusion or pneumothorax is seen. The skeletal structures a re osteopenic. Degenerative change and hyperkyphosis are noted in the thoracic spine. There are chron ic/healed left-sided rib fractures. IMPRESSION: 1. Cardiomegaly with prominence of the pulmonary vasculature. Correlate clinically for evidence of fl uid overload/congestive change. 2. Left basilar opacities are unchanged and likely represent scarring/atelectasis. Correlate clinical ly. ACT 112: Negative or not required by law. Electronically signed by: Piyush Fox M.D. 11/15/2022 2:38 PM
[2022-11-15] MEDS: FUROSEMIDE 20 MG TAB PO SCH (18:01)
--- NOTE | 2022-11-15 22:19 | Communication Note ---
Date of Service: November 15, 2022 Notified by nursing of foul-smelling urine. Ordered urinalysis. Resident Activity Tracking Resident Involvement: Resident Care Provided and Tub Puller Coverage Note Care Provided: Adult Hospital Medicine
[2022-11-15 23:03] LABS: Appearance Urine Turbid (Clear); Bilirubin Urine Negative (Negative); Blood Urine 2+ (Negative); Glucose Urine UA Negative (Negative); Ketones Urine Negative (Negative); Leukocyte Esterase Urine 3+ (Negative); Nitrite Urine Negative (Negative); Protein Urine Trace (Negative); Urobilinogen Urine Negative (Negative); pH Urine 6.5 (4.5-7.5)
[2022-11-15 23:05] LABS: Color Urine Straw
[2022-11-15 23:06] LABS: Bacteria Urine 3+ (Negative); WBC Urine >30 /hpf (0-5)
[2022-11-15 23:07] LABS: Epithelial Cell Urine 0-5 /lpf (0-5); RBC Urine 0-4 /hpf (0-4)
[2022-11-16 07:29] LABS: Hemoglobin 9.2 g/dl (12.0-16.0); Mean Corpuscular Hemoglobin 26.7 pg (25.0-34.0); Mean Corpuscular Hgb Conc 30.7 g/dL (32.0-36.0); Mean Corpuscular Volume 87.2 fL (80.0-100.0); Mean Platelet Volume 10.5 fL (9.4-12.4); Platelet Count 330 K/uL (130-400); RDW Coefficient of Variation 18.1 % (11.5-14.5); RDW Standard Deviation 57.1 fL (36.4-46.3); Red Blood Count 3.44 M/uL (4.20-5.40); White Blood Count 4.18 K/ul (4.8-10.8)
[2022-11-16 07:50] LABS: BUN Creatinine Ratio 42.4 (10-20); Creatinine Clr Calc Pharmacy 21.7 ml/min; Est GFR (African American) 31.3 ml/min; Potassium 4.9 mmol/L (3.5-5.1)
[2022-11-16] MEDS: INSULIN ASPART PER UNIT CHARGE SC SCH ×4 (09:05→20:46)
[2022-11-16] MEDS: LANTUS PER UNIT CHARGE SQ SCH ×2 (09:05→20:45)
[2022-11-16] MEDS: ACETAMINOPHEN 500 MG TAB PO SCH ×3 (09:06→20:47)
[2022-11-16] MEDS: FUROSEMIDE 20 MG TAB PO SCH (09:06)
[2022-11-16] MEDS: APIXABAN 2.5 MG TAB PO SCH ×2 (09:06→20:47)
[2022-11-16] MEDS: GABAPENTIN 300 MG CAP PO SCH ×2 (09:06→20:46)
[2022-11-16] MEDS: SERTRALINE HCL 50 MG TABLET PO SCH (09:07)
[2022-11-16] MEDS: CYANOCOBALAMIN 1000 MCG/ML VIAL IM SCH (09:07)
[2022-11-16] MEDS: SODIUM BICARBONATE 650 MG TAB PO SCH (09:07)
[2022-11-16] MEDS: CALCITRIOL 0.25 MCG CAPSULE PO SCH (09:07)
[2022-11-16] MEDS: amLODIPine BESYLATE 5 MG TAB PO SCH (09:07)
[2022-11-16] MEDS: FAMOTIDINE 20 MG TAB PO SCH (09:08)
[2022-11-16] MEDS: DICLOFENAC SOD 1% GEL 100 GM TUBE EXT SCH ×4 (09:08→20:48)
[2022-11-16] MEDS: PANTOprazole 40 MG TAB PO SCH (09:08)
[2022-11-16] MEDS: MIRABEGRON ER 25 MG TAB PO SCH (09:08)
[2022-11-16] MEDS: MAGNESIUM OXIDE 400 MG TAB PO SCH (09:08)
[2022-11-16] MEDS: FOLIC ACID 1 MG TAB PO SCH (09:08)
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
[2022-11-16] MEDS: oxyCODONE HCL IR 5 MG TAB (IMMEDIATE RELEASE) PO PRN (11:47)
[2022-11-17] MEDS: ACETAMINOPHEN 500 MG TAB PO SCH ×3 (08:09→20:18)
[2022-11-17] MEDS: PANTOprazole 40 MG TAB PO SCH (08:10)
[2022-11-17] MEDS: GABAPENTIN 300 MG CAP PO SCH ×2 (08:10→20:19)
[2022-11-17] MEDS: APIXABAN 2.5 MG TAB PO SCH ×2 (08:10→20:19)
[2022-11-17] MEDS: SODIUM BICARBONATE 650 MG TAB PO SCH (08:10)
[2022-11-17] MEDS: SERTRALINE HCL 50 MG TABLET PO SCH (08:10)
[2022-11-17] MEDS: amLODIPine BESYLATE 5 MG TAB PO SCH (08:11)
[2022-11-17] MEDS: FOLIC ACID 1 MG TAB PO SCH (08:11)
[2022-11-17] MEDS: MIRABEGRON ER 25 MG TAB PO SCH (08:11)
[2022-11-17] MEDS: FUROSEMIDE 20 MG TAB PO SCH (08:11)
[2022-11-17] MEDS: MAGNESIUM OXIDE 400 MG TAB PO SCH (08:11)
[2022-11-17] MEDS: CALCITRIOL 0.25 MCG CAPSULE PO SCH (08:11)
[2022-11-17] MEDS: FAMOTIDINE 20 MG TAB PO SCH (08:12)
[2022-11-17] MEDS: DICLOFENAC SOD 1% GEL 100 GM TUBE EXT SCH ×4 (08:12→20:18)
[2022-11-17] MEDS: INSULIN ASPART PER UNIT CHARGE SC SCH ×4 (08:43→20:20)
[2022-11-17] MEDS: LANTUS PER UNIT CHARGE SQ SCH ×2 (08:52→20:20)
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
[2022-11-17] MEDS ORDERED: cefTRIAXone SODIUM 2,000 MG in DEXTROSE 5% 50 ML IV SCH (13:30)
[2022-11-18] MEDS: PANTOprazole 40 MG TAB PO SCH (07:43)
[2022-11-18] MEDS: APIXABAN 2.5 MG TAB PO SCH (07:43)
[2022-11-18] MEDS: GABAPENTIN 300 MG CAP PO SCH (07:44)
[2022-11-18] MEDS: amLODIPine BESYLATE 5 MG TAB PO SCH (07:44)
[2022-11-18] MEDS: FAMOTIDINE 20 MG TAB PO SCH (07:44)
[2022-11-18] MEDS: SERTRALINE HCL 50 MG TABLET PO SCH (07:44)
[2022-11-18] MEDS: FOLIC ACID 1 MG TAB PO SCH (07:44)
[2022-11-18] MEDS: CALCITRIOL 0.25 MCG CAPSULE PO SCH (07:44)
[2022-11-18] MEDS: FUROSEMIDE 20 MG TAB PO SCH (07:45)
[2022-11-18] MEDS: MIRABEGRON ER 25 MG TAB PO SCH (07:45)
[2022-11-18] MEDS: SODIUM BICARBONATE 650 MG TAB PO SCH (07:45)
[2022-11-18] MEDS: MAGNESIUM OXIDE 400 MG TAB PO SCH (07:45)
[2022-11-18] MEDS: ACETAMINOPHEN 500 MG TAB PO SCH ×2 (07:45→14:53)
[2022-11-18] MEDS: DICLOFENAC SOD 1% GEL 100 GM TUBE EXT SCH ×3 (07:46→17:03)
[2022-11-18] MEDS ORDERED: CIPROFLOXACIN / D5W 400 MG/200 ML BAG IV ONE (08:30)
[2022-11-18] MEDS: INSULIN ASPART PER UNIT CHARGE SC SCH ×3 (08:55→17:41)
[2022-11-18] MEDS: LANTUS PER UNIT CHARGE SQ SCH (09:31)
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
--- NOTE | 2022-11-22 07:56 | Coding Query ---
CODING QUERY To promote full compliance with coding requirements relating to patient care, provider participation is requested in all cases of mixing engineer uncertainty. Please assist us with the question(s) below: Coding Question(s): Pt admitted with UTI, chronic hodges catheter. . Please document, if knownr or supected, the etiology of the UTI. Thanks for your help! Mo Garcia [facility] Physician's Response(s): uti associated with chronic hodges catheter Principal Diagnosis: "that condition established after study, to be chiefly responsible for occasioning the admission of the patient to the hospital for care." Co-Existing Principal Diagnosis: "when two or more diagnoses equally meet the criteria for principal diagnosis as determined by the circumstances of admission, diagnostic work up, and/or therapy provided, and the Alphabetic Index, Tabular List, or another coding guideline does not provide sequencing direction, any one of the diagnoses may be sequenced first." "When the physician has documented what appears to be a current diagnosis in the body of the record, but has not included the diagnosis in the final diagnostic statement, the physician should be asked whether the diagnosis should be added." (Source [facility] 2 QTR90. p3-4) SARA
== END 2022-11-18 19:18 | disposition home or self-care (01) | DRG 698 ==
LOC: 3N 17:25 → ED 17:25 → SUATTDRO 21:12 → 3N 23:13 → SUATTDRO 10-27 08:49